=== PATIENT | female | born 2000 | race Caucasian/White ===

== ENCOUNTER 2023-05-03 06:09 | Emergency (ER) | payer OTHER, BC, SELFPAY ==
[2023-05-03] VITALS (9 sets, daily range): BP systolic 117–153; BP diastolic 67–109; PULSE 74–91; RESP 14–28; TEMP 36.7; O2SAT 99–100
--- NOTE | ~2023-05-03 | XR_ITS ---
EXAMINATION: XR chest 2V DATE: 05/03/2023 06:30 INDICATION: Left chest tightness. TECHNIQUE: Frontal and lateral views of the chest were obtained. COMPARISON: None. FINDINGS: There is no pneumonia, pleural effusion, or pneumothorax. The heart size is normal. There i s mild chronic anterior wedging of multiple vertebral bodies. IMPRESSION: 1. No acute cardiopulmonary disease. Reviewed, dictated and finalized at location A.
--- NOTE | 2023-05-03 06:10 | ECG_ITS ---
Measurements Intervals [place] Rate: 88 P: -5 NE: 137 QRS: 3 QRSD: 101 T: -32 QT: 363 QTc: 441 Interpretive Statements SINUS RHYTHM VOLTAGE CRITERIA FOR LVH [MEETS CRITERIA IN ONE OF: R(aVL), S(V1), R(V5), R(V5/V6)+S(V1)] MODERATE T-WAVE ABNORMALITY, CONSIDER LATERAL ISCHEMIA [-0.1+ mV T WAVE IN I/aVL/V5/V6] MODERATE T-WAVE ABNORMALITY, CONSIDER INFERIOR ISCHEMIA [-0.1+ mV T WAVE IN II/aVF] NO PREVIOUS ECG AVAILABLE FOR COMPARISON Electronically Signed On 05-03-2023 11:49:54 CDT by Delaney Price M.D.
--- NOTE | 2023-05-03 06:40 | ED.CHESTPAIN ---
HPI - Chest Pain General Chief Complaint: Chest Pain <Juan Francisco Pierre MD - Last Filed: 05/03/23 06:52> Stated Complaint: chest tightness/elevated bp <Juan Francisco Pierre MD - Last Filed: 05/03/23 06:52> Time Seen by Provider: 05/03/23 06:40 <Juan Francisco Pierre MD - Last Filed: 05/03/23 06:52> History of Present Illness HPI narrative: This is a 22-year-old female, past history of SVT on metoprolol, who presents the emergency department complaining of mild chest tightness for the past day. The patient states yesterday, she felt some nausea and headache. She took her blood pressure at the time and found that it was elevated. She presented to an outside ED but was not seen. She states her chest tightness began at approximately 10 AM yesterday and has persisted since then. She has no other complaints at this time. <Juan Francisco Pierre MD - Last Filed: 05/03/23 06:52> Related Data Allergies/Adverse Reactions: Allergies Allergy/AdvReac Type Severity Reaction Status Date / Time No Known Allergies Allergy Verified 05/03/23 06:42 <Juan Francisco Pierre MD - Last Filed: 05/03/23 06:52> Review of Systems Review of Systems: CONSTITUTIONAL: Denies fever, chills, or sweats. CARDIOVASCULAR: Chest tightness denies palpitations, or edema. RESPIRATORY: Denies cough or dyspnea. GASTROINTESTINAL: Denies abdominal pain, nausea, vomiting, or diarrhea. GENITOURINARY: Denies dysuria or hematuria. SKIN: Denies rash or itching. MUSCULOSKELETAL: Denies back pain, joint pain, or myalgia. NEUROLOGIC: Headache now resolved denies numbness, dizziness, or weakness. PSYCHIATRIC: Denies anxiety or depression. <Juan Francisco Pierre MD - Last Filed: 05/03/23 06:52> PMFSH Past Medical History Medical History: Medical History SVT (supraventricular tachycardia) <Juan Francisco Pierre MD - Last Filed: 05/03/23 06:52> Surgical History Surgical History: Surgical History History of arthroplasty of right ankle <Juan Francisco Pierre MD - Last Filed: 05/03/23 06:52> Social History Social History: Social History (Updated 05/03/23 @ 06:43 by Juan Francisco Pierre MD) Smoking status: Never smoker Alcohol intake: current Substance use: never <Juan Francisco Pierre MD - Last Filed: 05/03/23 06:52> Exam Narrative: GENERAL: Well-developed, well-nourished, and in no acute distress. HEAD: Normocephalic, atraumatic. EYES: PERRLA and EOMI. CHEST: Clear to auscultation. No respiratory distress. No wheezes rales or rhonchi HEART: Regular rate and rhythm. No murmur heard. Normal peripheral pulses. ABDOMEN: Soft, nontender, nondistended, normal active bowel sounds. EXTREMITIES: Normal range of motion. No edema. SKIN: Warm, dry, no rash. NEURO: Alert and oriented x3. Moving all 4 limbs purposefully. PSYCH: Normal mood and affect. <Juan Francisco Pierre MD - Last Filed: 05/03/23 06:52> Course Course Emergency Course: 07:00 - Patient signed out to oncoming ED physician, Dr. Carvajal pending labs. <Juan Francisco Pierre MD - Last Filed: 05/03/23 06:52> 07:00 - Patient signed out to oncoming ED physician, Dr. Carvajal pending labs. 0943: I assumed care at 0700. Patient resting comfortably and chest pain-free. Troponin negative x2. Patient has a trustee of estate she is able to follow-up with. No evidence of SVT. White count mildly elevated at 10.7 with a normal H&H. Electrolytes without need for replacement normal renal function. Patient felt appropriate for discharge home. Discussed this with patient and her mother. There was some question about patient's blood pressure, her blood pressure has been variable throughout the ER stay and is recommended she continue follow-up with PCP and cardiology for evaluation. <Chi Carvajal MD - Last Filed: 05/03/23 09:48> Vital Signs Vital signs:
[2023-05-03 07:10] LABS: Basophils Percent Auto 0.1 % (0.2-1.2); Eosinophils Absolute Auto 0.1 K/mm3 (0-0.3); Eosinophils Percent Auto 1.3 % (0-4.4); Hemoglobin 12.4 g/dL (12.0-15.0); Immature Granulocyte Absolute 0.04 K/mm3 (0.00-0.031); Immature Granulocyte Percent A 0.4 % (0-0.5); Lymphocytes Absolute Auto 3.34 K/mm3 (0.9-3.2); Lymphocytes Percent Auto 31.2 % (18.3-44.2); Mean Corpuscular HGB Conc 30.2 g/dl (32-36); Mean Corpuscular Hemoglobin 24.4 pg (26-34); Mean Corpuscular Volume 80.7 fl (80-100); Monocytes Absolute Auto 0.8 K/mm3 (0.1-0.6); Monocytes Percent Auto 7.2 % (2.6-8.5); Neutrophils Absolute Auto 6.4 K/mm3 (1.3-6.7); Neutrophils Percent Auto 59.8 % (45.5-73.1); Platelet Count Result 345 k/mm3 (150-375); Red Blood Count 5.08 M/mm3 (4.2-5.4); Red Cell Distribution Width 15.1 % (11.5-14.5); White Blood Count 10.7 K/mm3 (4.5-10.0)
--- NOTE | 2023-05-03 07:13 | PC.NURSE ---
Assumed care from ANDREI Almaguer at this time. Pt resting comfortably in bed with no questions or needs at this time.
[2023-05-03 07:19] LABS: Alanine Aminotransferase 30 U/L (6-35); Albumin Level 3.9 g/dL (3.5-5.1); Alkaline Phosphatase 83 U/L (38-126); Anion Gap 4 mmol/L (8-16); Aspartate Amino Transferase 24 U/L (14-36); Bilirubin,Total 0.3 mg/dL (0.2-1.3); Blood Urea Nitrogen 14 mg/dL (7-17); Carbon Dioxide 24 mmol/L (22-30); Chloride 108 mmol/L (98-107); Estimated CRCL calculation 128 ml/min; Estimated Glomerular Filt Rate > 60; Glucose 89 mg/dL (65-110); Lipase 47 U/L (23-300); Potassium 3.8 mmol/L (3.4-5.0); Sodium 136 mmol/L (137-145)
[2023-05-03 07:30] LABS: Troponin I < 0.012 ng/mL (0.000-0.034)
[2023-05-03 07:41] LABS: INR 1.1; Prothrombin Time 14.6 Seconds (11.1-14.7)
[2023-05-03 07:42] LABS: Partial Thromboplastin Time 24.4 SECONDS (22.3-36.8)
[2023-05-03 09:32] LABS: Troponin I < 0.012 ng/mL (0.000-0.034)
== END 2023-05-03 10:05 | disposition home or self-care (01) ==
PROVIDERS: Preventive Medicine Aerospace Medicine; Emergency Provider Emergency Medicine; PCP Family Medicine Sports Medicine
DX: R07.89 Other chest pain (principal); Z96.661 Presence of right artificial ankle joint; R94.31 Abnormal electrocardiogram [ECG] [EKG]
CPT/HCPCS: 36415; 71046; 80053; 83690; 84484; 85025; 85610; 85730; 93005; 99284

== ENCOUNTER 2024-08-23 16:22 | Emergency (ER) | payer OTHER, BC, SELFPAY ==
[2024-08-23] VITALS (7 sets, daily range): BP systolic 118–138; BP diastolic 58–91; PULSE 75–82; RESP 18–20; TEMP 36.6–37.2; O2SAT 99–100
--- NOTE | ~2024-08-23 | CT_ITS ---
EXAMINATION: CT abdomen pelvis w con DATE: 08/23/2024 19:21 INDICATION: Abdominal pain. TECHNIQUE: Computed tomography (CT) of the abdomen and pelvis was performed with 100 mL Omnipaque 350 intravenous contrast. Automated exposure control and iterative reconstruction technique were employe d. The dose-length product was 1596.66 mGy-cm. COMPARISON: CT abdomen and pelvis 08/11/2008 FINDINGS: The visualized portions of the lung bases are clear without pneumonia or pleural effusion. The heart size is normal. No pericardial effusion. The liver, gallbladder, spleen, pancreas, adrenal glands, and kidneys are normal. There are no dilated loops of bowel. The appendix is normal. There ar e no pathologically enlarged lymph nodes. There is no free intraperitoneal fluid. There is mild lumba r spondylosis. There is mild chronic anterior wedging of multiple thoracic vertebral bodies. Thoracol umbar levoscoliosis is noted. IMPRESSION: 1. No etiology for the patient's symptoms. Reviewed, dictated and finalized at location A. [employer] ART SALES REPRESENTATIVE
[2024-08-23 16:43] LABS: Add Urine Microscopic? NO; Appearance Urine Clear (Clear); Bilirubin Urine Negative (Negative); Blood Urine Negative (Negative); Color Urine Light Yellow (Yellow); Glucose Urine UA Negative (Negative); Ketones Urine Negative (Negative); Leukocyte Esterase Ur Negative (Negative); Nitrate Urine Negative (Negative); Protein Urine Negative (Negative); Urobilinogen Urine 0.2 mg/dL (0.2-1.0)
[2024-08-23 17:43] LABS: Basophils Absolute Auto 0.03 K/mm3 (0.00-0.10); Basophils Percent Auto 0.2 % (0.0-1.0); Eosinophils Absolute Auto 0.18 K/mm3 (0.02-0.50); Eosinophils Percent Auto 1.3 % (1.0-6.0); Hematocrit 36.6 % (35.0-49.0); Hemoglobin 11.3 g/dL (12.0-15.0); Immature Granulocyte Absolute 0.06 K/mm3 (0.00-0.00); Immature Granulocyte Percent A 0.4 % (0.0-0.0); Lymphocytes Absolute Auto 4.35 K/mm3 (1.10-4.50); Lymphocytes Percent Auto 31.9 % (18.0-42.0); Mean Corpuscular HGB Conc 30.9 g/dL (32-36); Mean Corpuscular Hemoglobin 22.7 pg (27.0-31.0); Mean Corpuscular Volume 73.5 fL (78.0-102.0); Mean Platelet Volume 11.4 fl (9.2-11.8); Monocytes Absolute Auto 0.85 K/mm3 (0.10-0.90); Monocytes Percent Auto 6.2 % (2.0-11.0); Neutrophils Absolute Auto 8.15 K/mm3 (1.70-7.20); Platelet Count Result 365 K/mm3 (150-420); Red Blood Count 4.98 M/mm3 (4.20-5.40); Red Cell Distribution Width 16.7 % (11.6-14.4); White Blood Count 13.6 K/mm3 (4.8-10.8)
[2024-08-23 18:03] LABS: Alanine Aminotransferase 35 U/L (14-59); Albumin Level 3.2 g/dL (3.4-5.0); Alkaline Phosphatase 92 U/L (46-116); Anion Gap 6 mmol/L (4-12); Aspartate Amino Transferase 16 U/L (15-37); Bilirubin,Total 0.2 mg/dL (0.00-1.00); Blood Urea Nitrogen 16 mg/dL (7-18); Calcium 9.2 mg/dL (8.5-10.1); Carbon Dioxide 30 mmol/L (21-32); Chloride 104 mmol/L (98-108); Estimated CRCL calculation 102 ml/min; Estimated Glomerular Filt Rate > 60; Glucose 86 mg/dL (70-99); Lipase 25 U/L (16-77); Osmolality Calculated 290 mOsm/kg (285-295); Potassium 3.7 mmol/L (3.5-5.1); Sodium 140 mmol/L (136-145); Total Protein 7.5 g/dL (6.4-8.2)
[2024-08-23 19:02] LABS: Urine Pregnancy Test Negative
[2024-08-23 19:03] LABS: Pregnancy On Board Control Positive
--- NOTE | 2024-08-23 19:05 | PC.NURSE ---
report to tomas mcgarry
--- NOTE | 2024-08-23 19:25 | PC.NURSE ---
Pt back from CT, awaiting results, no c/o at this time, VSS.
--- NOTE | 2024-08-23 19:42 | PC.NURSE ---
Dr Adler notified that pts CT and labs back.
--- NOTE | 2024-08-23 20:10 | ED.ABDPAIN ---
HPI - Abdominal Pain General Chief Complaint: Urogenital-Female Stated Complaint: lower abdominal pain Source: patient Mode of arrival: ambulatory Limitations: no limitations History of Present Illness HPI narrative: patient is a 23-year-old female with a significant past medical history that presents today for abdominal pain. Patient has generalized abdominal pain that she has had for last 2 days now. She states that she has the pain it is intermittent pain and is mainly generalized but more localized to the right side around the gallbladder and appendix area. She has taken some OTC medications no relief. She is not constipated she has had a bowel movement yesterday that was normal. MD elicited complaint: abdominal pain Onset (ago): day(s) Pain Consistency: intermittent Location: diffuse Severity: mild Pain scale (0-10): 3 Quality: cramping and aching Radiation: none Migration to: no migration Exacerbating factors: nothing Relieving factors: nothing Associated symptoms: nausea Related Data Patient : No Home Medications ?Medication ?Instructions ?Recorded ?Confirmed ?Last Taken ?Type metoprolol succinate 100 mg 150 mg PO DAILY 08/23/24 08/23/24 History tablet,extended release 24 hr Allergies Allergy/AdvReac Type Severity Reaction Status Date / Time No Known Allergies Allergy Verified 05/03/23 06:42 Review of Systems Review of Systems: All systems reviewed & are unremarkable except as noted in HPI and below Constitutional: Constitutional: Reports as per HPI Eyes: Eyes: Reports no additional eye complaints ENT: Reports system reviewed and no additional complaints, except as documented Cardiovascular: Cardiovascular: Reports no additional cardiovascular complaints Respiratory: Respiratory: Reports no additional respiratory complaints Gastrointestinal: Gastrointestinal: Reports no additional gastrointestinal complaints Genitourinary: Genitourinary: Reports no additional female genitourinary complaints Musculoskeletal: Musculoskeletal: Reports no additional musculoskeletal complaints Integumentary/Breasts: Skin/Breast: Reports system reviewed and no additional complaints, except as docu Neurologic: Reports system reviewed and no additional complaints, except as documented Psychiatric: Psychiatric: Reports no additional psychiatric complaints Endocrine: Endocrine: Reports no additional endocrine complaints Hematologic/Lymphatic: Hematologic/Lymphatic: Reports no additional hematologic/lymphatic complaints Allergic/Immunologic: Allergic/Immunologic: Reports no additional allergic/immunologic complaints PMFSH Past Medical History Medical History SVT (supraventricular tachycardia) Surgical History Surgical History History of arthroplasty of right ankle Social History Social History Smoking status: Never smoker Alcohol intake: current Substance use: never Exam Const: General: healthy appearing Nutritional Appearance: well nourished Orientation/consciousness: patient oriented x3 HENMT: Head: normal to inspection Ears: external ears normal Face/Nose/Sinus: Normal external nose present Face and sinus: normal facial exam Eyes: Conjunctivae: conjunctivae normal Pupils: Equal, round and reactive pupils present EOM: EOMs intact bilaterally Neck: Neck: normal visual inspection Chest: Chest palpation & inspection: normal inspection of the chest Resp: Effort & Inspection: normal respiratory effort Auscultation: clear to auscultation bilaterally Cardio: Rate: regular rate Rhythm: regular rhythm GI: GI Palp: Yes Soft to palpation and Yes Tenderness to palpation present (GI) : General: Yes bladder normal to palpation Back/Spine/Pelvis: Back: no CVA tenderness Skin: General skin exam: normal color Rashes: no rashes Wounds: no wounds Neuro: General: patient oriented x3 Cranial nerves: Yes Nystagmus not present Speech: normal speech Extrem: General: normal to inspection Psych: Mental Status: mental status grossly normal Affect: normal affect Attitude: cooperative Course Vital Signs Vital signs: Vital Signs Temperature 98.9 F 08/23/24 16:25 Pulse Rate 80 08/23/24 16:25 Respiratory Rate 20 08/23/24 16:25 Blood Pressure 130/58 L 08/23/24 16:25 Pulse Oximetry 99 08/23/24 16:25 Oxygen Delivery Room Air 08/23/24 16:25 Temperature 98.9 F 08/23/24 16:25 Pulse Rate 82 08/23/24 19:25 Respiratory Rate 18 08/23/24 19:25 Blood Pressure 126/62 08/23/24 19:25 Pulse Oximetry 100 08/23/24 19:25 Oxygen Delivery Room Air 08/23/24 19:25 MDM - Abdominal Pain MDM Narrative Medical decision making narrative: Patient has had the abdominal pain last 3 days out. A 6 generalized abdominal pain she has had to slight nausea no vomiting and no diarrhea and no constipation. Because of the adrenals a downey of the abdominal pain will just do a CT scan of the abdomen pelvis with contrast. Will also do basic blood work as well. CT scan abdomen pelvis was negative for any abnormal findings. Differential Diagnosis Differential diagnosis: Likely abdominal pain, gastroenteritis and other Medical Records Attestation: I reviewed the patient's medical records. Lab Data Attestation: I reviewed the patient's lab results. 08/23/24 17:39 08/23/24 17:39 Labs: Lab Results 08/23/24 08/23/24 Range/Units 16:25 17:39 WBC 13.6 H (4.8-10.8) K/mm3 RBC 4.98 (4.20-5.40) M/mm3 Hgb 11.3 L (12.0-15.0) g/dL Hct 36.6 (35.0-49.0) % MCV 73.5 L (78.0-102.0) fL MCH 22.7 L (27.0-31.0) pg MCHC 30.9 L (32-36) g/dL RDW 16.7 H (11.6-14.4) % Plt Count 365 (150-420) K/mm3 MPV 11.4 (9.2-11.8) fl Immature Gran % (Auto) 0.4 H (0.0-0.0) % Neut % (Auto) 60.0 (50.0-70.0) % Lymph % (Auto) 31.9 (18.0-42.0) % [place] % (Auto) 6.2 (2.0-11.0) % Eos % (Auto) 1.3 (1.0-6.0) % Baso % (Auto) 0.2 (0.0-1.0) % Lymph # (Auto) 4.35 (1.10-4.50) K/mm3 [place] # (Auto) 0.85 (0.10-0.90) K/mm3 Eos # (Auto) 0.18 (0.02-0.50) K/mm3 Baso # (Auto) 0.03 (0.00-0.10) K/mm3 Abs Immat Gran (auto) 0.06 H (0.00-0.00) K/mm3 Absolute Neuts (auto) 8.15 H (1.70-7.20) K/mm3 Absolute Nucleated RBC 0.00 (0.00-0.00) K/mm3 Nucleated RBC % 0.0 (0-0.0) % Sodium 140 (136-145) mmol/L Potassium 3.7 (3.5-5.1) mmol/L Chloride 104 (98-108) mmol/L Carbon Dioxide 30 (21-32) mmol/L Anion Gap 6 (4-12) mmol/L BUN 16 (7-18) mg/dL Creatinine 1.02 (0.55-1.02) mg/dL Estim Creat Clear Calc 102 ml/min Estimated GFR > 60 (59 - ) Glucose 86 (70-99) mg/dL Calculated Osmolality 290 (285-295) mOsm/kg Calcium 9.2 (8.5-10.1) mg/dL Total Bilirubin 0.2 (0.00-1.00) mg/dL AST 16 (15-37) U/L ALT 35 (14-59) U/L Alkaline Phosphatase 92 (46-116) U/L Total Protein 7.5 (6.4-8.2) g/dL Albumin 3.2 L (3.4-5.0) g/dL Lipase 25 (16-77) U/L Urine Color Light yellow (Yellow) Urine Appearance Clear (Clear) Urine pH 6.0 (5.0-8.0) Ur Specific [place] 1.020 (1.010-1.020) Urine Protein Negative (Negative) Urine Glucose (UA) Negative (Negative) Urine Ketones Negative (Negative) Ur Blood (Man) Negative (Negative) Urine Nitrate Negative (Negative) Urine Bilirubin Negative (Negative) Urine Urobilinogen 0.2 (0.2-1.0) mg/dL Ur Leukocyte Esterase Negative (Negative) Urine Test Negative Imaging Data Radiologist's impression: ITS Impressions Abdomen/Pelvis CT 08/23/24 19:22 IMPRESSION: 1. No etiology for the patient's symptoms. Discharge Plan Discharge Clinical Impression: Gastroenteritis Patient Disposition: Home, Self-Care Condition: Stable Instructions: Gastroenteritis (ED) Patient Language: Spanish Prescriptions: No Action metoprolol succinate 100 mg tablet extended release 24 hr 150 mg PO DAILY Follow-up/Referrals: Flori,Albert Martinez MD [Primary Care Provider] - Time of Disposition: 20:24
--- OUTSIDE RECORDS SUMMARY | 2024-08-27 04:44 | XMS_ITS | Encounter Summary ---
Author Organization [facility] Address [address] [place] [address]. 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, [address] [place] [id number] [address] [place], [address] [facility] [address] [place] [address] Prior Authorization (Colonoscopy-[id number]- [id number]) Social History Tobacco Use Types Packs/Day Years Used Date Smoking Tobacco: Never Passive Smoke Exposure: Never Smokeless Tobacco: Never Alcohol Use Standard Drinks/Week Comments No 0 (1 standard drink = 0.6 oz pur e alcohol) AUDIT-C Answer Date Recorded Frequency of Alcohol Consumption Never 05/29/2018 Average Number of Drinks Not on file 018 Frequency of Binge Drinking Not on file 05/12 PHQ-2 Answer Date Recorded Patient Health Questionnaire-2 Score 0 10/05/2023 Comments No Sex and Gender Information Value Date Recorded Sex Assigned at Not on file Legal Sex Female 4:55 PM CDT Gender Identity Not on file Sexual Orientation Not on file Occupation Industry Job Start Date Job End Date Not on file Not on file Not on file Not on file documented as of this encounter Progress Notes * Cony Fournier MA - 10/20/2023 8:56 AM CST Called patients primary INS and was informed that no PA is required for colonoscopy(36041) and EGD (26300) scheduled on 11/15/2023. Also checked [facility] BCBS and [employer] stated no PA was required. 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 [address] [place] [address] EP Bail Attacher CARDIOVASCULAR DISEASE 08/15/18 documented as of this encounter
--- OUTSIDE RECORDS SUMMARY | 2024-08-27 04:44 | XMS_ITS | Clinical Summary ---
Author Organization [facility] Address [address] [place] [address]. [place], [place] [address] [place] [address] Care Team Providers Care Chemicals Distiller Name Role Phone Albert Ruby MD Primary Care Provider [phone] Tremayne Shi MD Unavailable [phone] Allergies Active Allergy Reactions Criticality Noted Date Comments Apple Vomiting 01/05/2010 Medications esomeprazole (NEXIUM) 40 MG capsule Take 1 capsule (40 mg total) by mouth every morning before breakfast. Active NEXPLANON 68 MG SC implant 024 Active hydroCHLOROthia zide (MICROZIDE) 12.5 MG capsuleIndicati ons:Primary hypertension Take 1-2 capsules (12.5-25 mg total) by mouth every morning. 180 capsule 3 024 Active folic acid (FOLVITE) 1 MG tabletIndicatio ns:Low folic acid Take 1 tablet (1 mg total) by mouth daily. 90 tablet 3 024 Active sertraline (ZOLOFT) 50 MG tabletIndicatio ns:Anxiety Take 1 tablet by mouth once daily 90 tablet 024 Active OZEMPIC, 0.25 OR 0.5 MG/DOSE, 2 MG/3ML injection (PEN)Indication s:Obesity, diabetes, and hypertension syndrome (CMS/HCC HHS/HCC),Predia betes,Morbid obesity with BMI of 50.0-59.9, adult (CMS/HCC HHS/HCC) INJECT 0.25MG SUBCUTANEOUSLY EVERY 7 DAYS 3 mL 024 Active metoprolol succinate ER (TOPROL-XL) 100 MG 24 hr tabletIndicatio ns:Palpitations ,Primary hypertension Take 1 tablet by mouth once daily 30 tablet Active vitamin D2, ergocalciferol, (DRISDOL) 1.25 mg capsuleIndicati ons:Vitamin D deficiency TAKE 1 CAPSULE BY MOUTH ONCE EVERY 7 DAYS 12 capsule Active vitamin D2, ergocalciferol, (DRISDOL) 1.25 mg capsuleIndicati ons:Vitamin D deficiency TAKE 1 CAPSULE BY MOUTH ONCE EVERY 7 DAYS 12 capsule 024 2023 Discontinued OZEMPIC, 0.25 OR 0.5 MG/DOSE, 2 MG/3ML injection (PEN)Indication s:Obesity, diabetes, and hypertension syndrome ([facility]),Predia betes,Morbid obesity with BMI of 50.0-59.9, adult ([facility]) INJECT 0.25MG SUBCUTANEOUSLY EVERY 7 DAYS 3 mL 024 2023 Discontinued metoprolol succinate ER (TOPROL-XL) 100 MG 24 hr tabletIndicatio ns:Palpitations ,Primary hypertension Take 1 tablet by mouth once daily 30 tablet 024 2023 Discontinued Active Problems Problem Noted Date Diagnosed Date RUQ pain 10/06/2023 Diarrhea, unspecified type 10/06/2023 Chronic GERD 10/06/2023 Gastroesophageal reflux disease without esophagi tis 05/20/2020 Gall bladder disease 02/21/2020 Syncope 05/29/2018 Palpitations 05/29/2018 Tachycardia 05/29/2018 Migraine 04/11/2018 Obesity 03/02/2018 PMS (premenstrual syndrome) 11/24/2017 Anxiety 08/02/2017 Insomnia 01/23/2017 Allergic rhinitis 01/06/2011 Restless legs syndrome (RLS) 11/04/2010 Achrochordon 01/05/2010 Resolved Problems Problem Noted Date Diagnosed Date Resolved Date Annual physical exam 11/13/2020 021 Immunizations Name Administration Dates Next Due Dtap 03/26/2001, 0,01/18/2000,11/10 Dtap (Acel-Immune) 04/18/2005 Dtap (Generic) 04/18/2005,,03/17/2000,05/2000,1999 Fluzone Intradermal Quad (IIV4) 04/10/2023 HPV 05/01/2013,08/22/2011 HPV4 (Gardasil) 05/01/2013,08/22/2011 Hepatitis A Vaccine - 2 Dose 08/22/2011,10/29/19 09 Hepatitis B 03/26/2001,01/13/2000 Hepatitis B (Generic: Adult) 03/26/2001,07/03/20 00,01/13/2000 Hepatitis B Pediatric 12/22/2000, 000,04/17/2000,03/2000 Hib (Generic) 03/26/2001, 1,03/17/2000,05/2000,1999 Influenza (Generic) 07/25/2011,06/16/2010 Influenza Adult (Generic) 05/12/2020,09/2018(Deferred: Patient/family declined) MENINGOCOCCAL A C Y&W-135 oligosaccharide (MENVEO) 08/22/2011 MMR 04/18/2005,12/22/2000 MMR (Generic) 04/15/2005,12/22/2000 Menactra 04/19/2017 Meningcoccal Group B (Bexser o)(aka Meningitis) 08/02/2017,04/19/2017 Meningococcal (Generic) 08/22/2011 Meningococcal B 08/02/2017,04/19/2017 Meningococcal Vac A,C,Y,W-135 Sc 04/19/2017 PFIZER COVID-19 (ORIGINAL FO RMULATION, PURPLE CAP) mRNA, LNP-S, PF, 30 MCG/0.3 ML DOSE 05/13/2021,02/23/2021 Pneumococcal (Prevnar 7) 03/26/2001,07/03/2000,0 01/18/2000 Polio Ipv (Generic) 04/18/2005, 1,01/18/2000,11/10 Polio Opv (Generic) 04/18/2005 Tdap (Generic) 05/01/2013 Varicella Vaccine 12/22/2000 Family History Medical History Relation Comments Depression Father Mental Health Father Heart Disease Maternal Grandfather CHF Maternal Grandmother Heart Disease Maternal Grandmother Open Heart Maternal Grandmother Arthritis Mother Asthma Mother Hypertension Mother CHF Paternal Grandmother Relation Status Comments Father Alive Maternal Grandfather Maternal Grandmother Mother Alive Paternal Grandmother Social History Tobacco Use Types Packs/Day Years Used Date Smoking Tobacco: Never Passive Smoke Exposure: Never Smokeless Tobacco: Never Tobacco Cessation:Counseling Given: No Alcohol Use Standard Drinks/Week Comments No 0 (1 standard drink = 0.6 oz pur e alcohol) AUDIT-C Answer Date Recorded Frequency of Alcohol Consumption Never 05/29/2018 Average Number of Drinks Not on file 018 Frequency of Binge Drinking Not on file 05/12 PHQ-2 Answer Date Recorded Patient Health Questionnaire-2 Score 0 05/01/2024 Comments No Sex and Gender Information Value Date Recorded Sex Assigned at Not on file Legal Sex Female 4:55 PM CDT Gender Identity Not on file Sexual Orientation Not on file Occupation Industry Job Start Date Job End Date Not on file Not on file Not on file Not on file Last Filed Vital Signs Vital Sign Reading Time Taken Comments Blood Pressure 148/85 05/01/2024 9:23 AM CDT Pulse 80 05/01/2024 9:23 AM CDT Temperature 36.7 ??C (98.1 ??F) 05/01/2024 9:23 AM CD T Respiratory Rate 16 05/01/2024 9:23 AM CDT Oxygen Saturation 98% 05/01/2024 9:23 AM CDT Inhaled Oxygen Concentration - - Weight 137 kg (302 lb) 05/01/2024 9:23 AM CDT Height 162.6 cm (5' 4 ) 05/01/2024 9:23 AM CDT Body Mass Index 51.84 05/01/2024 9:23 AM CDT Plan of Treatment Health Maintenance Due Date Last Done Comments Cervical Cancer Screening Pap Smear (Age 21 to 29) Every 3 Years 1999 Cervical Cancer Screening 1999 Kidney Health Evaluation 1999 Pneumococcal Vaccine: Pediatrics (0 to 5 Years) and At-Risk Patients (6 to 64 Years) (1 of 2 - PCV) 2005 03/26/2001, 07/03/2000, 01/18/2000 Diabetes: Retinopathy Eye Exam 2017 DTaP, Tdap and Td Vaccines (7 - Td or Tdap) 05/01/2023 05/01/2013, 04/18/2005, 04/18/2005, Additional history exists Influenza Adult (#1) 2024 04/10/2023, 05/12/2020, 07/25/2011, Additional history exists Annual Physical 07/07/2024 07/07/2023, 06/12, 11/13/2020 Hemoglobin A1C 10/26/2024 04/25/2024, 06/11, 11/13/2020, Additional history exists Lipid Panel 04/25/2025 04/25/2024, 06/11, 11/13/2020, Additional history exists COVID-19 Vaccine ( season) 2112 05/13/2021, 02/23/2021 Postponed from 05/12/2024 (Going to Outside Clinic) Hepatitis B Vaccines Completed 03/26/2001, 03/26/2001, 12/22/2000, Additional history exists HPV Vaccines Completed 05/01/2013, 04/12, 08/22/2011, Additional history exists Meningococcal Vaccine Completed 08/02/2017 , 04/19/2017, 04/19/2017, Additional history exists Hepatitis C Completed 04/25/2024 RSV Immunizations Under 20 Months Aged Out No longer eligible based on patient's age to complete this topic Procedures Procedure Name Priority Date/Time Associated Diagnosis Comments HEPATITIS C ANTIBODY W/RFX TO HCV RNA Routine 04/25/2024 1:09 PM CDT LIPID PANEL Routine 04/25/2024 1:09 PM CDT HEMOGLOBIN, GLYCOSYLATED Routine 04/25/2024 1:09 PM CDT from Last 3 Months or Most Recently Relevant to Health Maintenance Results * HEPATITIS C ANTIBODY W/RFX TO HCV RNA (04/25/2024 1:09 PM CDT) HEPATITIS C AB NON-REACT CARRI NON-REACT CARRI [facility] Comment: HCV antibody was non-reactive. There is no laboratory evidence of HCV infection. In most cases, no further action is required. However, if recent HCV exposure is suspected, a test for HCV RNA (test code 51996) is suggested. For additional information please refer to http://education.Master The Gap/faq/ZPO62g5 (This link is being provided for informational/ educational purposes only.) 04/25/2024 1:09 PM CDT 04/25/2024 1:14 PM CDT Narrative [facility] - 04/26/2024 11:32 AM CDT FASTING:YES FASTING: YES Resulting Agency Comment Performing Organization Information: ?Site ID: [place] ?Name: [facility] ?Address: [address] [place] [address] ?Director: Yuli Li MD Albert Ruby MD LABORATORY Final Result [facility] [address] [place] [address], * (ABNORMAL) HEMOGLOBIN, GLYCOSYLATED (04/25/2024 1:09 PM CDT) HGB A1C 5.7(H) <5.7 % of total Hgb [facility] [place] Comment: For someone without known diabetes, a hemoglobin A1c value between 5.7% and 6.4% is consistent with prediabetes and should be confirmed with a follow-up test. For someone with known diabetes, a value <7% indicates that their diabetes is well controlled. A1c targets should be individualized based on duration of diabetes, age, comorbid conditions, and other considerations. This assay result is consistent with an increased risk of diabetes. Currently, no consensus exists regarding use of hemoglobin A1c for diagnosis of diabetes for children. ? This test was performed on the Niurka kulwinder c503 platform. Effective 11/27/23, a change in test platforms from the Telles Family Program Specialist to the Niurka kulwinder c503 may have shifted HbA1c results compared to historical results. Based on laboratory validation testing conducted at [facility], the Niurka platform relative to the Telles platform had an average increase in HbA1c value of < or = 0.3%. This difference is within accepted variability established by the National Glycohemoglobin Standardization Program. Note that not all individuals will have had a shift in their results and direct comparisons between historical and current results for testing conducted on different platforms is not recommended. 04/25/2024 1:09 PM CDT 04/25/2024 1:14 PM CDT Narrative [facility] - 04/26/2024 11:32 AM CDT FASTING:YES FASTING: YES Resulting Agency Comment Performing Organization Information: ?Site ID: ?Name: [facility] ?Address: [address] [place] [address] ?Director: Yuli Li Albert Ruby MD LABORATORY Final Result [facility] [address] [address], * (ABNORMAL) LIPID PANEL (04/25/2024 1:09 PM CDT) CHOLESTEROL 104 <200 mg/dL [facility] HDL 43(L) > OR = 50 mg/dL [facility] TRIGLYCERIDES 67 <150 mg/dL [facility] LDL (CALCULATED) 47 mg/dL (calc) [facility] Comment: Reference range: <100 Desirable range <100 mg/dL for primary prevention; ?? <70 mg/dL for patients with CHD or diabetic patients with > or = 2 CHD risk factors. LDL-C is now calculated using the Kevin-Justice calculation, which is a validated novel method providing better accuracy than the Friedewald equation in the estimation of LDL-C. Kevin SS et al. AMAN. 2013;310(19): 6123-1759 (http://education.Cotap/faq/JBY321) CHOL/HDL RATIO 2.4 <5.0 (calc) [facility] NON HDL CHOLESTEROL 61 <130 mg/dL (calc) [facility] Comment: For patients with diabetes plus 1 major ASCVD risk factor, treating to a non-HDL-C goal of <100 mg/dL (LDL-C of <70 mg/dL) is considered a therapeutic option. 04/25/2024 1:09 PM CDT 04/25/2024 1:14 PM CDT Narrative [facility] - 04/26/2024 11:32 AM CDT FASTING:YES FASTING: YES Resulting Agency Comment Performing Organization Information: ?Site ID: [place] ?Name: [facility] ?Address: [address] [place] [address] ?Director: Yuli Li MD us Albert Ruby MD LABORATORY Final Result [facility] [address] [address] [address], from Last 3 Months or Most Recently Relevant to Health Maintenance [facility] Care Teams Chemicals Distiller Relationship Specialty Start Date End Date Albert Ruby MD [address] [place] [address] [address] [place] [address] PCP - General FAMILY PRACTICE 05/16/18 Tremayne Shi MD [facility]. [address] [place] [address] EP Agricultural And Forestry Supervisor CARDIOVASCULAR DISEASE 08/15/18
--- OUTSIDE RECORDS SUMMARY | 2024-08-27 04:44 | XMS_ITS | Encounter Summary ---
Author Organization [facility] Address [address] [place] [address]. [place] [address] Care Team Providers Care Registered Nurse Practitioner Name Role Phone Albert Ruby MD Primary Care Provider [phone] Tremayne Shi MD Unavailable [phone] Encounter Details Date Type Department Care Team (Latest Contact Info) Description 12/20/2023 Scan HEALTH INFO SRVCS Scanned, Doc Med Group Social History Tobacco Use Types Packs/Day Years [...] on file documented as of this encounter Plan of Treatment Not on file documented as of this encounter Visit Diagnoses Not on filedocumented in this encounter Additional Health Concerns Assessment Noted Time PHQ-9 Depression Total Score: 4 07/07/20 23 8:53 AM CDT documented as of this encounter Care Teams Registered Nurse Practitioner Relationship Specialty Start Date End Date Albert Ruby MD [address] [place] [address] PCP - General FAMILY PRACTICE 05/16/18 Tremayne Shi MD [address] [facility] [address] [place] [address] EP Cold Patcher CARDIOVASCULAR DISEASE 08/15/18 documented as of this encounter
--- OUTSIDE RECORDS SUMMARY | 2024-08-27 04:44 | XMS_ITS | Encounter Summary ---
Author Organization [facility] Address [address] [place] [address]. [place], [place] [address] [place] [address] Care Team Providers Care Scallop Dredger Name Role Phone Albert Ruby MD Primary Care Provider [phone] Tremayne Shi MD Unavailable [phone] Encounter Details Date Type Department Care Team (Latest Contact Info) Description 10/16/2023 Travel Social History Tobacco Use Types Packs/Day Years [...] documented as of this encounter Care Teams Scallop Dredger Relationship Specialty Start Date End Date Albert Ruby MD [address] [facility] [address] [place] [address] PCP - General FAMILY PRACTICE 05/16/18 Tremayne Shi MD [address] [place] [address] EP Optical Manufacturing Technician CARDIOVASCULAR DISEASE 08/15/18 documented as of this encounter
--- OUTSIDE RECORDS SUMMARY | 2024-08-27 04:44 | XMS_ITS | Encounter Summary ---
Author Organization [facility] Address [address] [place] [address]. [place] [address] [place] [address] Care Team Providers Care Helper Teacher Name Role Phone Albert Ruby MD Primary Care Provider [phone] Tremayne Shi MD Unavailable [phone] Reason for Visit * Reason Onset Date Comments Medication 06/22/2023 Encounter Details Date Type Department Care Team (Late st Contact Info) Description 06/22/2023 Telephone [facility] Medical [facility] Family and Sports Medicine - [place] [address] [place] [address] Albert Ruby MD [address] [facility] [address] [place] [address] Medication Social History Tobacco Use Types Packs/Day Years Used Date Smoking Tobacco: Never Smokeless Tobacco: Never Alcohol Use Standard Drinks/Week Comments No 0 (1 standard drink = 0.6 oz pur e alcohol) AUDIT-C Answer Date Recorded Frequency of Alcohol Consumption Never 05/29/2018 Average Number of Drinks Not on file 018 Frequency of Binge Drinking Not on file 05/12 PHQ-2 Answer Date Recorded PHQ-2 Score - If the patient scores above 3, please move on to questions 3-9 4 07/01/2022 Comments No Sex and Gender Information Value Date Recorded Sex Assigned at Not on file Legal Sex Female 4:55 PM CDT Gender Identity Not on file Sexual Orientation Not on file Occupation Industry Job Start Date Job End Date Not on file Not on file Not on file Not on file documented as of this encounter Progress Notes * Nubia Scanlon MA - 06/22/2023 2:45 PM CDT [facility] [place] [facility] [place] [facility]. * Tory Asif - 06/22/2023 12:48 PM CDT Pt would like to script for vitamin D2, ergocalciferol, (DRISDOL) 1.25 mg capsule To be sent to [facility] of [facility]. documented in this encounter Plan of Treatment Not on file documented as of this encounter Visit Diagnoses Diagnosis Vitamin D deficiency Unspecified vitamin D deficiency documented in this encounter Additional Health Concerns Assessment Noted Time PHQ-9 Depression Total Score: 11 022 11:44 AM CDT documented as of this encounter Care Teams Helper Teacher Relationship Specialty Start Date End Date Albert Ruby MD [address] [place], [place] [address] [address] [place] [address] PCP - General FAMILY PRACTICE 05/16/18 Tremayne Shi MD [facility] [place] [address] EP Molecular Biology Professor CARDIOVASCULAR DISEASE 08/15/18 documented as of this encounter
--- OUTSIDE RECORDS SUMMARY | 2024-08-27 04:44 | XMS_ITS | Encounter Summary ---
Author Organization [facility] Address [address] [place] [address]. [place], [place] [address] [place] [address] Care Team Providers Care Straddle Truck Driver Name Role Phone Albert Ruby MD Primary Care Provider [phone] Tremayne Shi MD Unavailable [phone] Encounter Details Date Type Department Care Team (Latest Contact Info) Description 11/15/2023 Travel Social History Tobacco Use Types Packs/Day [...] documented as of this encounter Care Teams Straddle Truck Driver Relationship Specialty Start Date End Date Albert Ruby MD [address] [facility] [address] [place] [address] PCP - General FAMILY PRACTICE 05/16/18 Tremayne Shi MD [address] [place] [address] EP Fingerprint Classifier CARDIOVASCULAR DISEASE 08/15/18 documented as of this encounter
--- OUTSIDE RECORDS SUMMARY | 2024-08-27 04:44 | XMS_ITS | Encounter Summary ---
Author Organization [facility] Address [address] [place] [address]. [place] [address] [place] [address] Care Team Providers Care Global Manager Name Role Phone Albert Ruby MD Primary Care Provider [phone] Tremayne Shi MD Unavailable [phone] Reason for Visit * Reason Onset Date Comments Advice 04/29/2024 Encounter Details Date Type Department Care Team (Late st Contact Info) Description 04/29/2024 Telephone [facility] Medical Group Family and Sports Medicine - [place] [address] [place] [address] Albert Ruby MD [address] [facility] [address] [place] [address] Advice Social History Tobacco Use Types Packs/Day Years [...] as of this encounter Progress Notes * Edith Jackson CMA - 04/29/2024 2:21 PM CDT Called and scheduled appt 05/01/24 * MARCELLUS Esquivel - 04/29/2024 1:28 PM CDT Name of Caller: Laura Call Back Number: [phone] Symptoms/Complaints: bp 160/90's Duration/Onset: since Monday OTC Medications/Remedies Tried: Appointment Offered? Yes Requesting Medication? No Requesting Call Back? Yes Additional details: documented in this encounter Plan of Treatment Not on file documented as of this encounter Visit Diagnoses Not on filedocumented in this encounter Additional Health Concerns Assessment Noted Time PHQ-9 Depression Total Score: 4 07/07/20 23 8:53 AM CDT documented as of this encounter Care Teams Global Manager Relationship Specialty Start Date End Date Albert Ruby MD [address] [place] [address] [address] [place] [address] PCP - General FAMILY PRACTICE 05/16/18 Tremayne Shi MD [facility]. [address] [place] [address] EP Livestock Trucker CARDIOVASCULAR DISEASE 08/15/18 documented as of this encounter
--- OUTSIDE RECORDS SUMMARY | 2024-08-27 04:44 | XMS_ITS | Encounter Summary ---
Author Organization [facility] Address [address] [place] [address]. [place], [place] [id number] [place] [id number] Care Team Providers Care Tank Truck Driver Name Role Phone Vania Brown MD Primary Care Provider [phone] Tremayne Shi MD Unavailable [phone] Reason for Visit * Auth/Cert (Routine) Specialty Diagnoses / Procedures Referred By Ines borja Referred To Contact Diagnoses RUQ pain Diarrhea, unspecified type Chronic GERD chronic GERD,episodic RUQ pain naesea/diarrhea Procedures COLONOSCOPY,DIAGNOSTIC UPPER GI ENDOSCOPY,DIAGNOSIS COLONOSCOPY EGD Eduardo Shipman, DO #3 [facility] [address] [place] [address] Phone: tel: fax: Referral ID Status Reason Start Date Expiration Date Visits Re quested Visits Authorized [id number] 1 1 Encounter Details Date Type Department Care Team (Latest Contact Info) Description 11/15/2023 8:38 AM [facility] - 11/15/2023 12:24 PM [facility] Hospital Encounter [facility] [place], [place] [id number] Eduardo Shipman, DO #3 [facility] [address] [place] [phone] Discharge Disposition: Home or Self Care (Routine Discharge) Social History Tobacco Use Types Packs/Day Years [...] on file documented as of this encounter Last Filed Vital Signs Vital Sign Reading Time Taken Comments Blood Pressure 119/84 11/15/2023 12:00 PM CLOAK ROOM ATTENDANT Pulse 73 11/15/2023 12:00 PM CLOAK ROOM ATTENDANT Temperature 36.9 ??C (98.4 ??F) 11/15/2023 11:[address] Respiratory Rate 16 11/15/2023 12:00 PM CLOAK ROOM ATTENDANT Oxygen Saturation 99% 11/15/2023 12:00 PM CLOAK ROOM ATTENDANT Inhaled Oxygen Concentration - - Weight 135.2 kg (298 lb) 11/02/2023 4:47 PM CLOAK ROOM ATTENDANT Height 162.6 cm (5' 4 ) 11/02/2023 4:47 PM CLOAK ROOM ATTENDANT Body Mass Index 51.15 11/02/2023 4:47 PM CLOAK ROOM ATTENDANT documented in this encounter Discharge Instructions * Discharge Instructions* Elle Brown LPN - 11/15/2023 11:59 AM CLOAK ROOM ATTENDANT Recommendations: Call 2 weeks for biopsy report. Follow-up with primary physician. Patient has significant sleep apnea observed during procedure. Antireflux regimen reinforced. Continue esomeprazole. OTC famotidine 20/40 mg at bedtime if needed. May benefit from gastric emptying study. Avoid NSAIDs. Benefiber daily. [email or web address] or Florastor per label instructions. Low carbohydrate diet, exercise, and weight loss encouraged due to hepatic steatosis. Transaminases should be checked every 6 months. Follow-up with ALFA Piper in office. K ROOM ATTENDANT * Attachments The following attachments cannot be sent through Care Everywhere. * General Anesthesia Discharge Instructions (Tongan) * Colonoscopy Discharge Instructions (Tongan) * Upper GI Endoscopy Discharge Instructions (Tongan) documented in this encounter Medications at Time of Discharge esomeprazole (NEXIUM) 40 MG capsule Take 1 capsule (40 mg total) by mouth every morning before breakfast. ALPRAZolam (XANAX) 0.25 MG tabletIndications:A nxiety Take 1 tablet (0.25 mg total) by mouth nightly as needed for Sleep. 30 tablet 10/23/2023 4 cholestyramine (QUESTRAN) 4 G packetIndications:R UQ pain,Diarrhea, unspecified type Take 1 packet (4 g total) by mouth 2 (two) times daily with meals. 60 each 10/05/2023 4 cloNIDine (CATAPRES) 0.2 MG tabletIndications:P rimary insomnia Take 1 tablet by mouth in the evening 30 tablet 11/09/2023 4 metoprolol succinate ER (TOPROL-XL) 100 MG 24 hr tabletIndications:P alpitations,Primary hypertension Take 1 tablet by mouth once daily 90 tablet 10/30/2023 4 Norgestimate-Ethiny l Estradiol (TRI-LO-NEENA) 0.18/0.215/0.25 MG-25 MCG tabletIndications:E ncounter for other contraceptive management Take 1 tablet by mouth once daily 28 tablet 2 10/09/2023 4 sertraline (ZOLOFT) 50 MG tabletIndications:A nxiety Take 1 tablet (50 mg total) by mouth daily. 90 tablet 3 07/07/2023 4 vitamin D2, ergocalciferol, (DRISDOL) 1.25 mg capsuleIndications: Vitamin D deficiency Take 1 capsule (50,000 Units total) by mouth every 7 days. 12 capsule 3 06/22/2023 4 documented as of this encounter H&P Notes * Eduardo Shipman DO - 11/15/2023 7:24 AM CST Pranay Gonzalez is a 23-year-old female who presents today for evaluation of GERD symptoms. Referral placed by PCP Dr. Brown. Reports chronic GERD managed on antacids since she was an infant. Is currently prescribed Esomeprazole 40 mg daily with infrequent breakthrough heartburn reported. Her main concern is her chronic RUQpain and associated nausea and diarrhea. Pain is described as a dull ache, has had migrating pain to her LUQ and back over the past few months. Typically has an episode once a week, symptoms last several days. Symptoms are triggered by eating and seem to be associated with fatty foods most frequently. Diarrhea is non bloody. Had an episode of rectal bleeding when she was 9 which resulted in a hospitalization at which time an EGD and colonoscopy were completed. States her mother was told the bleeding could have been from a torn colon polyp although its likely there was some misunderstanding or miscommunication since there was no colon polyp removed and was not recommended to repeat endoscopies. States she was given IV protonix for a few days then sent home. Has not had a reoccurrence of rectal bleeding. Has had a biliary work-up in 2010 and again in 2019, both of which were normal. CT scan at that time showed mesenteric adenopathy for which patient was tx with antibiotics. BM in between episodes are regular. Denies any dysphagia. Appetite appropriate, denies early satiety. No unexplained weight loss No hx of hepatitis infection NSAID/Anticoagulant use: None Follows cardiology for h/o SVT controlled with metoprolol Past Medical History Past Medical History: Diagnosis Date Anxiety Asthma Depression GERD (gastroesophageal reflux disease) Heart murmur Hypertension Migraine Palpitations Syncope Tachycardia Past Surgical History Past Surgical History: Procedure Laterality Date ANKLE FRACTURE SURGERY COLONOSCOPY FRACTURE SURGERY 06/2013 R ankle Family History Family History Problem Relation Name Age of Onset Arthritis Mother Izabela Asthma Mother Izabela Hypertension Mother Izabela Depression Father Hubert Mental Health Father Hubert CHF Maternal Grandmother Maia Open Heart Maternal Grandmother Maia Heart Disease Maternal Grandmother Maia CHF Paternal Grandmother Heart Disease Maternal Grandfather Sergio Social History Tobacco Use Smoking status: Never Passive exposure: Never Smokeless tobacco: Never Vaping Use Vaping Use: Never used Substance Use Topics Alcohol use: No Drug use: No Medications Taking Outpatient Medications Marked as Taking for the 10/05/23 encounter (Office Visit) with Charla Araujo NP Medication Sig Dispense Refill ALPRAZolam (XANAX) 0.25 MG tablet Take 1 tablet (0.25 mg total) by mouth nightly as needed for Sleep. 30 tablet 0 cholestyramine (QUESTRAN) 4 G packet Take 1 packet (4 g total) by mouth 2 (two) times daily with meals. 60 each 0 cloNIDine (CATAPRES) 0.2 MG tablet Take 1 tablet (0.2 mg total) by mouth every evening. 30 tablet 3 esomeprazole (NEXIUM) 40 MG capsule Take 1 capsule (40 mg total) by mouth every morning before breakfast. metoprolol succinate ER (TOPROL-XL) 100 MG 24 hr tablet Take 1 tablet (100 mg total) by mouth daily. 90 tablet 1 Na sulfate-K sulfate-Mg sulfate (SUPREP BOWEL PREP KIT) 17.5-3.13-1.6 GM/177ML Solution Take 177 mLs by mouth every 12 (twelve) hours. Per GI instructions 354 mL 0 Norgestimate-Ethinyl Estradiol (ORTHO TRI-CYCLEN LO) 0.18/0.215/0.25 MG-25 MCG tablet Take 1 tabletby mouth daily. 28 tablet 5 sertraline (ZOLOFT) 50 MG tablet Take 1 tablet (50 mg total) by mouth daily. 90 tablet 3 vitamin D2, ergocalciferol, (DRISDOL) 1.25 mg capsule Take 1 capsule (50,000 Units total) by mouth every 7 days. 12 capsule 3 Review of patient's allergies indicates: No Known Allergies REVIEW OF SYSTEMS: Review of Systems Constitutional: Negative for fatigue and fever. Respiratory: Negative for shortness of breath. Cardiovascular: Negative for leg swelling. Gastrointestinal: Per HPI Musculoskeletal: Negative for joint swelling. Skin: Negative for rash. Neurological: Negative for dizziness and headaches. Psychiatric/Behavioral: The patient is not nervous/anxious. PHYSICAL EXAM: Filed Vitals: 10/05/23 1304 BP: 121/66 Pulse: 88 Resp: 18 Temp: 97.3 ??F (36.3 ??C) TempSrc: Temporal SpO2: 96% Weight: 135.6 kg (299 lb) Height: 1.651 m (5' 5 ) Wt Readings from Last 1 Encounters: 10/05/23 135.6 kg (299 lb) Physical Exam Vitals reviewed. Constitutional: Appearance: Normal appearance. Cardiovascular: Rate and Rhythm: Normal rate and regular rhythm. Pulmonary: Breath sounds: Normal breath sounds. No wheezing. Abdominal: General: Bowel sounds are normal. There is no distension. Palpations: Abdomen is soft. There is no mass. Tenderness: There is no abdominal tenderness. There is no guarding or rebound. Hernia: No hernia is present. Musculoskeletal: Right lower leg: No edema. Left lower leg: No edema. Skin: General: Skin is warm and dry. Findings: No rash. Neurological: Mental Status: She is alert and oriented to person, place, and time. Psychiatric: Mood and Affect: Mood normal. Behavior: Behavior normal. Labs: Lab Results Component Value Date WBC 10.6 06/21/2023 RBC 4.77 06/21/2023 HGB 11.9 06/21/2023 HCT 37.4 06/21/2023 RDW 14.6 06/21/2023 PLT 300 06/21/2023 NA 138 06/21/2023 K 4.0 06/21/2023 CL 107 06/21/2023 AGAP 15.4 (H) 11/13/2020 GLU 105 (H) 06/21/2023 BUN 10 06/21/2023 CR 0.82 06/21/2023 GFRNON >90 11/13/2020 GFR >90 11/13/2020 CA 8.8 06/21/2023 ALB 3.6 06/21/2023 ALT 12 06/21/2023 AST 12 06/21/2023 ALKP 82 06/21/2023 Imagin08/03/2020 HIDA SCAN 1. Normal contractile response of the gallbladder to a fat-containing liquid meal (EF 54%) 2. Normal biliary imaging study. 04/10/2020 CT ABD+PEL W CON 1. No bowel obstruction or appendicitis or acute inflammatory change in the large or small bowel. 2. No CT findings of pancreatitis 3. Numerous 5 and 6 mm mesenteric lymph nodes; mesenteric adenitis or mesenteritis. 02/27/2020 US ABD Limited 1. FINDINGS SUSPICIOUS FOR MILD HEPATIC STEATOSIS. NO FOCAL INTRAHEPATIC LESION. 2. NO EVIDENCE OF CHOLELITHIASIS NOR BILIARY DUCT DILATATION. Endoscopies: None Assessment 1. RUQ pain - cholestyramine (QUESTRAN) 4 G packet; Take 1 packet (4 g total) by mouth 2 (two) times daily withmeals. Dispense: 60 each; Refill: 0 - Na sulfate-K sulfate-Mg sulfate (SUPREP BOWEL PREP KIT) 17.5-3.13-1.6 GM/177ML Solution; Take 177mLs by mouth every 12 (twelve) hours. Per GI instructions Dispense: 354 mL; Refill: 0 - CT ABD W CON; Future 2. LUQ pain - Na sulfate-K sulfate-Mg sulfate (SUPREP BOWEL PREP KIT) 17.5-3.13-1.6 GM/177ML Solution; Take 177mLs by mouth every 12 (twelve) hours. Per GI instructions Dispense: 354 mL; Refill: 0 - CT ABD W CON; Future 3. Diarrhea, unspecified type - cholestyramine (QUESTRAN) 4 G packet; Take 1 packet (4 g total) by mouth 2 (two) times daily withmeals. Dispense: 60 each; Refill: 0 - Na sulfate-K sulfate-Mg sulfate (SUPREP BOWEL PREP KIT) 17.5-3.13-1.6 GM/177ML Solution; Take 177mLs by mouth every 12 (twelve) hours. Per GI instructions Dispense: 354 mL; Refill: 0 - CT ABD W CON; Future 4. Chronic GERD - CT ABD W CON; Future Recommendations/Plan: Schedule Dx EGD and Colonoscopy for chronic GERD with episodic RUQ pain, nausea and diarrhea Suprep split prep prescribed CT scan of abdomen and pelvis ordered per migrating abdominal pain, diarrhea, h/o mesentery adenopathy Continue esomeprazole 40 mg daily. Symptoms do seem to be r/t gallbladder or biliary disease despite previous neg work-ups in 2010 and 2019. Its possible patient was not having a flare during HIDA scan since symptoms are episodic not consistent. Will trial cholestyramine 4 G BID for flare. Also recommended low fat diet as well as discussed anti-reflux measures It is recommended to consume 20-35 grams of fiber per day and at least 64 ounces/2 liters of water per day. All questions answered More recommendations to follow endoscopic evaluation Risks/Benefits/Options: Risks, benefits and alternatives of the procedure(s) were discussed which can include but are not limited to: discomfort, missing lesions, allergic or adverse reaction to the sedation, perforation ofthe bowel or upper GI tract which may require hospitalization and surgery, bleeding, infection, aspiration. All questions were answered, patient is in agreement to proceed as planned. K ROOM ATTENDANT documented in this encounter OR Notes * Op Note - Eduardo Shipman DO - 11/15/2023 11:45 AM CST EGD History/Preop: Very pleasant lady with a history of chronic reflux disease on esomeprazole 40 mg daily. She been having chronic right upper quadrant abdominal pain and nausea. Post Op: Gastric biopsy for H. pylori testing. Small sliding hiatal hernia. Procedure: EGD with biopsy. Findings: Examination the esophagus was unremarkable. The Z-line is very distinct approximately 38 cm. A 2 cmsliding hiatal hernia was noted. The scope was advanced to the second portion of the duodenum. The visualized portion of the duodenum was unremarkable. Examination of the stomach in the forward and flex use was completed. The stomach was unremarkable. Gastric biopsy were taken for H. pylori testing. Recommendations: Please refer to colonoscopy report. Anes: MAC Complications: No immediate. EBL: < 5ml. Procedure: The benefits, risks, complications and alternatives were explained in detail to the patient/power of proof technician helper. These were understood, assumed and written consent was obtained. The risk and complications include, but are not limited to, hemorrhage, perforation, infection, blood transfusion, surgery,and missed lesions. Anesthesia risks were explained by the department of anesthesiology which include, but are limited to, allergic reactions, cardiopulmonary arrest, heart attack, stroke, and pneumonia. All questions were addressed with understanding. Colonoscopy History/Preop: Very pleasant lady with right upper quadrant abdominal pain and diarrhea. She has episodes of diarrhea. She is here for colonoscopy. Post Op: Negative terminal ileum. Negative colonoscopy. Random biopsies for microscopic colitis. Procedure Performed: Colonoscopy with biopsy and ileoscopy. Findings: Digital rectal examination was unremarkable. Colonoscopy the distal 5 cm of terminal and was completed. The visualized portion of the terminal limits unremarkable. Examination of the colon was completed. The colon was unremarkable. Random biopsies were taken for microscopic colitis. The rectum was examined in forward and retroflexed views. The rectum was unremarkable. Recommendations: Call 2 weeks for biopsy report. Follow-up with primary physician. Patient has significant sleep apnea observed during procedure. Antireflux regimen reinforced. Continue esomeprazole. OTC famotidine 20/40 mg at bedtime if needed. May benefit from gastric emptying study. Avoid NSAIDs. Benefiber daily. [employer] colon health or Florastor per label instructions. Low carbohydrate diet, exercise, and weight loss encouraged due to hepatic steatosis. Transaminases should be checked every 6 months. Follow-up with ALFA Piper in office. Anes: MAC Complications: No immediate. Quality Indicators: EBL: <5 mL Prep: Good. Procedure: The benefits, risks, complications and alternatives were explained in detail to the patient/power of proof technician helper. These were understood, assumed and written consent was obtained. The risk and complications include, but are not limited to, hemorrhage, perforation, infection, blood transfusion surgery, and missed lesions. Anesthesia risks were explained by the department of anesthesiology. These include, but are not limited to, allergic reactions, cardiopulmonary arrest, heart attack, stoke, and infection. All question were answered and understood. The cecum will be identified by its characteristic anatomy. This includes, but not limited to, the appendiceal opening and the ileocecal valve. Photographic documentation will be obtained. Eduardo Shipman DO K ROOM ATTENDANT K ROOM ATTENDANT documented in this encounter Plan of Treatment Not on file documented as of this encounter Procedures Procedure Name Priority Date/Time Associated Diagnosis Comments COLONOSCOPY Routine 11/15/2023 11:58 AM CLOAK ROOM ATTENDANT EGD Routine 11/15/2023 11:58 AM CLOAK ROOM ATTENDANT UPPER GI ENDOSCOPY,BIOPSY 11/15/2023 11:15 AM CLOAK ROOM ATTENDANT RUQ pain Diarrhea, unspecified type Chronic GERD COLONOSCOPY WITH BIOPSY 11/15/2023 11:15 AM CLOAK ROOM ATTENDANT RUQ pain Diarrhea, unspecified type Chronic GERD PROCEDURE GENERIC 11/15/2023 11: 06 AM CLOAK ROOM ATTENDANT PATHOLOGY Routine 11/15/2023 12:00 AM CLOAK ROOM ATTENDANT documented in this encounter Results * PROCEDURE GENERIC (11/15/2023 11:06 AM CLOAK ROOM ATTENDANT) us Eduardo Shipman DO [facility] Final Result * Pathology (11/15/2023 12:00 AM CLOAK ROOM ATTENDANT) PATHOLOGY [facility] ? Department of Laboratory Medicine ?[address] [facility] ?[place] [address] ? , extension [phone] ? Pathology Report ? Surgical Pathology Report Name: PRANAY GONZALEZ ?Specimen #: [id number] Age: 1 2000 (Age: 23) ? Location: [facility] Sex: F ?Procedure Date: 11/15/2023 Hospital #: [id number] ?Date Received: 11/15/2023 Date Reported: 11/16/2023 Provider: EDUARDO SHIPMAN DO ?VANIA BROWN MD Source: A: Gastric biopsies r/o h pylori B: Colon, random, biopsies r/o microscopic colitis Clinical History: Chronic GERD, diarrhea unspecified type and RUQ pain, nausea/diarrhea Gross Description: Received are two formalin-filled containers both labeled with the patient's name and date of . A. ??Additionally labeled gastric biopsy collection date 11/15/2023 at 1129. The specimen consists of two pink-herrera fragments of tissue mg 0.3 and 0.5 cm in greatest dimension. ??The specimen is submitted in toto in cassette A1. B. ??Additionally labeled random colon biopsies collection date 11/15/2023 at 1137. ??The specimen consists of six fragments of yellow-herrera to pink-herrera tissue admixed with minimal vegetative material, ranging from 0.3 cm up to 0.5 cm in greatest dimension. ??The specimen is submitted in toto in cassette B1. ??A portion of specimen may not survive processing. Gross examination (when applicable), interpretation, and sign out were performed at [facility], [address] [place] [address]. FINAL DIAGNOSIS: A) STOMACH, BIOPSY: ? - BENIGN GASTRIC MUCOSA. ? - NO HELICOBACTER PYLORI BY H&E. B) COLON, RANDOM BIOPSY: ? - BENIGN COLONIC MUCOSA WITH LYMPHOID AGGREGATES. ? - NO EVIDENCE OF ACUTE OR MICROSCOPIC COLITIS. Electronically Signed Out ? ANTONIETTA VELAZQUEZ MD [facility] TISSUE GASTRIC BIOPSY SPECIMEN / Unknown 11/15/2023 11:29 AM CLOAK ROOM ATTENDANT Tissue specimen (specimen) COLON STRUCTURE / Unknown 11/15/2023 11:37 AM CLOAK ROOM ATTENDANT us Eduardo Shipman DO PATHOLOGY/CYTOLOGY ORDERABLES F inal Result [facility] [address] [place] [address], [id number] documented in this encounter Visit Diagnoses Diagnosis RUQ pain Abdominal pain, right upper quadrant Diarrhea, unspecified type Chronic GERD documented in this encounter Admitting Diagnoses Diagnosis RUQ pain Abdominal pain, right upper quadrant Diarrhea, unspecified type Chronic GERD documented in this encounter Administered Medications Inactive Administered Medications - up to 3 most recent administrations Medication Order MAR Action Action Date Dose Rate Site acetaminophen (TYLENOL) tablet 650 mg 650 mg, Oral, Once as needed, Mild pain (Scale 1 - 3), 1 dose, Starting on Mon11/15/23 at 1157, Until Mon11/15/23 at 1425, Maximum dose of acetaminophen is 4000 mg from all sources in 24 hours., PACU lactated ringers infusion at 10 mL/hr, Intravenous, Continuous, Starting on Mon11/15/23 at 0915, Until Mon11/15/23 at 1425, Infuse at TKO rate, Pre-Op Continued by Anesthesia 11/15/2023 11:14 AM CLOAK ROOM ATTENDANT New Bag 11/15/2023 11:11 AM CLOAK ROOM ATTENDANT ondansetron (ZOFRAN) injection 4 mg 4 mg, Intravenous, Once as needed, Nausea, Vomiting, 1 dose, Starting on Mon11/15/23 at 1157, Until Mon11/15/23 at 1425, Administer slowly over 3-4 minutes. If more than one antiemetic is ordered, use in this order: ondansetron, diphenhydramine, metoclopramide, haloperidol, promethazine. If nausea / vomiting still not controlled, move to next ordered medication., PACU documented in this encounter Active and Recently Administered Medications Times are shown in CLOAK ROOM ATTENDANT. Continuous Medication Order 11/13/2023 11/14/2023 11/15/2023 lactated ringers infusion at 10 mL/hr, Intravenous, Continuous, Starting on Mon11/15/23 at 0915, Until Mon11/15/23 at 1425, Infuse at TKO rate, Pre-Op 1111 (New Bag - Prov ider: Guicho Fernandez CRNA)1114 (Continued by Anesthesia - Provider: Guicho Fernandez CRNA)1148 (Anesthesia Volume Adjustment - Provider: uGicho Fernandez CRNA) PRN Medication Order 11/13/2023 11/14/2023 11/15/2023 acetaminophen (TYLENOL) tablet 650 mg 650 mg, Oral, Once as needed, Mild pain (Scale 1 - 3), 1 dose, Starting on Mon11/15/23 at 1157, Until Mon11/15/23 at 1425, Maximum dose of acetaminophen is 4000 mg from all sources in 24 hours., PACU ondansetron (ZOFRAN) injection 4 mg 4 mg, Intravenous, Once as needed, Nausea, Vomiting, 1 dose, Starting on Mon11/15/23 at 1157, Until Mon11/15/23 at 1425, Administer slowly over 3-4 minutes. If more than one antiemetic is ordered, use in this order: ondansetron, diphenhydramine, metoclopramide, haloperidol, promethazine. If nausea / vomiting still not controlled, move to next ordered medication., PACU documented in this encounter Additional Health Concerns Assessment Noted Time PHQ-9 Depression Total Score: 4 07/07/20 23 8:53 AM CDT documented as of this encounter Care Teams Tank Truck Driver Relationship Specialty Start Date End Date Vania Brown MD [address] [place] [address] [address] [place] [address] PCP - General FAMILY PRACTICE 05/16/18 Tremayne Shi MD [facility]. [address] [place] [address] EP Guest Services Manager CARDIOVASCULAR DISEASE 08/15/18 documented as of this encounter
--- OUTSIDE RECORDS SUMMARY | 2024-08-27 04:44 | XMS_ITS | Encounter Summary ---
Author Organization [facility] Address [address] [place] [address]. [place], [place] [id number] [place] [id number] Care Team Providers Care Efficiency Manager Name Role Phone Albert Ruby MD Primary Care Provider [phone] Tremayne Shi MD Unavailable [phone] Reason for Referral * Imaging (Routine) - Closed Specialty Diagnoses / Procedures Referred By Contac t Referred To Contact RADIOLOGY Diagnoses RUQ pain Diarrhea, unspecified type LUQ pain Chronic GERD Procedures CT ABD W Marin Pepper NP [address] [address] Phone: tel: fax: Referral ID Status Reason Start Date Expiration Date Visits Re quested Visits Authorized [id number] Closed 10/05/2023 10/05/2024 1 1 UTIVE CHEF ASSISTANT Reason for Visit * Imaging (Routine) - Closed Specialty Diagnoses / Procedures Referred By Contac jonh Referred To Contact RADIOLOGY Diagnoses RUQ pain Diarrhea, unspecified type LUQ pain Chronic GERD Procedures CT ABD W Marin Pepper NP [address] [address] Phone: tel: fax: Referral ID Status Reason Start Date Expiration Date Visits Re quested Visits Authorized [id number] Closed 10/05/2023 10/05/2024 1 1 Encounter Details Date Type Department Care Team (Latest Contact Info) Description 10/16/2023 8:01 AM EXECUTIVE CHEF ASSISTANT - 10/16/2023 11:59 PM [facility] Hospital Encounter [facility] [address] [place] [address] Marin Araujo NP 3 [facility] [address] [place] [address] Discharge Disposition: Home or Self Care (Routine [...] on file documented as of this encounter Medications at Time of Discharge esomeprazole (NEXIUM) 40 MG capsule Take 1 capsule (40 mg total) by mouth every morning before breakfast. ALPRAZolam (XANAX) 0.25 MG tabletIndications: Anxiety Take 1 tablet (0.25 mg total) by mouth nightly as needed for Sleep. 30 tablet 08/11/2023 10/20/19 24 cholestyramine (QUESTRAN) 4 G packetIndications: RUQ pain,Diarrhea, unspecified type Take 1 packet (4 g total) by mouth 2 (two) times daily with meals. 60 each 10/05/2023 05/01/20 24 cloNIDine (CATAPRES) 0.2 MG tabletIndications: Primary insomnia Take 1 tablet (0.2 mg total) by mouth every evening. 30 tablet 3 07/07/2023 11/09/19 24 metoprolol succinate ER (TOPROL-XL) 100 MG 24 hr tabletIndications: Palpitations,Prima ry hypertension Take 1 tablet (100 mg total) by mouth daily. 90 tablet 1 05/04/2023 10/30/19 24 Na sulfate-K sulfate-Mg sulfate (SUPREP BOWEL PREP KIT) 17.5-3.13-1.6 GM/177ML SolutionIndication s:RUQ pain,Diarrhea, unspecified type,LUQ pain Take 177 mLs by mouth every 12 (twelve) hours. Per GI instructions 354 mL 10/05/2023 11/15/19 24 Norgestimate-Ethin yl Estradiol (TRI-LO-NEENA) 0.18/0.215/0.25 MG-25 MCG tabletIndications: Encounter for other contraceptive management Take 1 tablet by mouth once daily 28 tablet 2 10/09/2023 01/05/20 24 sertraline (ZOLOFT) 50 MG tabletIndications: Anxiety Take 1 tablet (50 mg total) by mouth daily. 90 tablet 3 07/07/2023 07/15/20 24 vitamin D2, ergocalciferol, (DRISDOL) 1.25 mg capsuleIndications :Vitamin D deficiency Take 1 capsule (50,000 Units total) by mouth every 7 days. 12 capsule 3 06/22/2023 05/20/20 24 documented as of this encounter Plan of Treatment Not on file documented as of this encounter Procedures Procedure Name Priority Date/Time Associated Diagnosis Comments CT ABD W CON Routine 10/16/2023 8:32 AM EXECUTIVE CHEF ASSISTANT RUQ pain Diarrhea, unspecified type LUQ pain Chronic GERD documented in this encounter Results * CT ABD W CON (10/16/2023 8:32 AM EXECUTIVE CHEF ASSISTANT) Anatomical Region Laterality Modality Abdomen Computed Tomogra phy 10/19/2023 9:29 AM EXECUTIVE CHEF ASSISTANT Impressions 10/19/2023 9:57 AM EXECUTIVE CHEF ASSISTANT =====IMPRESSION:===== 1. Small sliding hiatal hernia. 2. No acute or other significant localizing abdominal process/findings seen to provide a potential explanation for the patient's symptoms. Ordered By: MARIN ARAUJO Interpreted By: Michelle Sifuentes MD, 10/19/2023 9:29 AM Narrative 10/19/2023 9:57 AM EXECUTIVE CHEF ASSISTANT Exam: CT abdomen with contrast Exam Date/Time: 10/16/2023 8:06 AM Indication: 23 female. Chronic right upper quadrant pain for one year. Mesenteric adenitis. Diarrhea. Chronic GERD ?? Comparison: CT abdomen pelvis 04/10/2020 Technique: Computed tomography of the abdomen performed following uneventful IV administration of 140 mL Isovue-370 contrast. A dose lowering technique was used for this procedure, which may include, but is not limited to, dose reduction technique, automated exposure control, the use of iterative reconstruction, and ALARA (As Low As Reasonably Achievable) / Image Gently techniques. . CT findings: LOWER CHEST Normal cardiac size. No pericardial or pleural effusion. Imaged lung bases are clear.. ABDOMEN Liver and bile ducts: Normal size and morphology of the liver. No focal liver lesion. ??Portal vein and hepatic veins are patent. No intra or extrahepatic biliary tree dilatation. Gallbladder: Unremarkable. No calcific cholelithiasis, gallbladder wall thickening or pericholecystic fluid. Pancreas: Normal. Spleen: Upper normal splenic size measuring 13.0 cm. No focal finding. RETROPERITONEUM Adrenals: Normal. Kidneys: Normal size, morphology and enhancement. No collecting system obstruction, suspicious lesion or perinephric stranding. Lymph nodes: No mesenteric or retroperitoneal adenopathy. BOWEL AND PERITONEUM Bowel: Small sliding hiatal hernia. Normal caliber and thickness of the imaged bowel. No acute or significant gastrointestinal tract finding.. Free air or fluid: None. VASCULATURE Abdominal aorta and remainder of the visualized vasculature is unremarkable within study limits. BONES/SOFT TISSUES No significant lesion. Procedure Note Michelle Sifuentes MD - 10/19/2023 Exam: CT abdomen with contrast Exam Date/Time: 10/16/2023 8:06 AM Indication: 23 female. Chronic right upper quadrant pain for one year.Mesenteric adenitis. Diarrhea. Chronic GERD Comparison: CT abdomen pelvis 04/10/2020 Technique: Computed tomography of the abdomen performed followinguneventful IV administration of 140 mL Isovue-370 contrast. A doselowering technique was used for this procedure, which may include, but isnot limited to, dose reduction technique, automated exposure control, theuse of iterative reconstruction, and ALARA (As Low As ReasonablyAchievable) / Image Gently techniques. . CT findings: LOWER CHEST Normal cardiac size. No pericardial or pleural effusion. Imaged lung basesare clear.. ABDOMEN Liver and bile ducts: Normal size and morphology of the liver. No focalliver lesion. Portal vein and hepatic veins are patent. No intra or extrahepatic biliary tree dilatation. Gallbladder: Unremarkable. No calcific cholelithiasis, gallbladder wallthickening or pericholecystic fluid. Pancreas: Normal. Spleen: Upper normal splenic size measuring 13.0 cm. No focal finding. RETROPERITONEUM Adrenals: Normal. Kidneys: Normal size, morphology and enhancement. No collecting systemobstruction, suspicious lesion or perinephric stranding. Lymph nodes: No mesenteric or retroperitoneal adenopathy. BOWEL AND PERITONEUM Bowel: Small sliding hiatal hernia. Normal caliber and thickness of theimaged bowel. No acute or significant gastrointestinal tract finding.. Free air or fluid: None. VASCULATURE Abdominal aorta and remainder of the visualized vasculature isunremarkable within study limits. BONES/SOFT TISSUES No significant lesion. =====IMPRESSION:===== 1. Small sliding hiatal hernia. 2. No acute or other significant localizing abdominal process/findingsseen to provide a potential explanation for the patient's symptoms. Ordered By: MARIN ARAUJO Interpreted By: Michelle Sifuentes MD, 10/19/2023 9:29 AM Marin Araujo NP CT Final Resul t documented in this encounter Visit Diagnoses Diagnosis RUQ pain Abdominal pain, right upper quadrant Diarrhea, unspecified type LUQ pain Abdominal pain, left upper quadrant Chronic GERD documented in this encounter Administered Medications Inactive Administered Medications - up to 3 most recent administrations Medication Order MAR Action Action Date Dose Rate Site iopamidol (ISOVUE-370) 76 % injection 140 mL 140 mL, Intravenous, IMG once as needed, Contrast, 1 dose, Starting on Mon10/16/23 at 0832, Until Mon10/16/23 at 0833 Given 10/16/2023 8:33 AM EXECUTIVE CHEF ASSISTANT 140 mLs Right Arm documented in this encounter Additional Health Concerns Assessment Noted Time PHQ-9 Depression Total Score: 4 07/07/20 8:53 AM CDT documented as of this encounter Care Teams Efficiency Manager Relationship Specialty Start Date End Date Albert Ruby MD [address] [place], [place] [id number] PCP - General FAMILY PRACTICE 05/16/18 Tremayne Shi MD [address] [place], [place] [id number] EP Wellness Guide CARDIOVASCULAR DISEASE 08/15/18 documented as of this encounter
--- OUTSIDE RECORDS SUMMARY | 2024-08-27 04:44 | XMS_ITS | Data Portability ---
Author Organization [facility] [place] Address [address] [place] [address] Assessment Encounter Date Assessment Date Assessment LastModified by Organization Details LastModified Time 12/18/2019 12/18/2019 Nexplanon Insertion Not available 12/18/2019 11:55:38 Plan of Treatment Reminders Order Date Submit Date Provider Last Modified By Organization Details Last Modified Time Details Appointments None recorded . Lab pregnanc y test, urine 2022 023 alonso Ames, [facility] [address], [place], [address], 3 16:31:35 Referral None recorded . Procedures None recorded . Surgeries None recorded . Imaging None recorded . Medication Orders metronid azole 0.75 % (37.5 mg/5 gram) vaginal gel 2022 023 [facility], [address] [place], [address], 3 16:27:45 Depo-Pro vera 150 mg/mL intramus cular syringe 2022 023 [facility], [address] [place], [address], 3 17:34:52 Depo-Pro vera 150 mg/mL intramus cular syringe 2022 023 [facility] [address], [address] [place], [address], 3 16:59:16 Patient TargetsNo targets recorded. Patient Instructions Encounter Date Encounter Id Patient Instructions Last Modified By Organization Details Last Modified Time 12/18/2019 [id number] surgical trays* [id number] Not availa ble 12/28/2019 00:08:59 Post-procedure instructions reviewed after insertion of Nexplanon device. She is to RTO x 3mos for Medication check. Contact office if issues or concerns prior to upcoming appt. Not available 12/18/2019 11:31:20 Reason for Referral None Reported. Results Created Date Observation Date Name Description Value Unit Range Abnormal Flag Note LastModifiedBy Organization Detail LastModifiedTime 09/08/20 22 09/08/2022 IMAGE GUIDE D PAP, REFLE X HPV IF ASCUS ONLY image guided Pap, reflex HPV ASCUS only SEE RESULT S BELOW CASE REPOR T: Cytol ogy Gynec ologi kate Repor t Case: [id number] Autho ti g Provi trena: Missy Stahl, ALFA Colle cted: 09/08 1903 Order ing Locat ion: [place] [facility] Recei olamide: 09/10 1423 First Scree n: Ksenia Christie, CT Rescr een: Shelly Pittman , [place] Speci men: Scree berlin Pap - Image d, Cervi x STATE MENT OF ADEQU ACY: Satis facto ry for evalu ation Trans forma tion zone compo nent absen t The absen ce of an endoc ervic al compo nent was confi rmed by an addit ional scremedardo ner. FINAL DIAGN OSIS: Negat theresa for Intra epith elial Lesio n or Deshawn arellano (NIL) . Shift in brendon sugge stive of bacte rial vagin osis. Elect kavon ordaz by Shelly Pittman , [place] on 023 at 11:16 AM ----- ----- ----- ----- ----- ----- ----- ----- ----- ----- ----- ----- ----- ----- ----- ----- ----- ---- COMME NT: Note: This speci men was revie wed by a Cytot echno logis t and/o r Patho logis t (as indic ated in this repor t) after evalu ation using the Thinp rep Imagi ng Syste m. CLINI KATE INFOR MATIO N: Menst rual Statu s: LMP (if appli cable ): 08/30 Clini kate Histo ry/Pr eviou s Pap: Type of Neopl pieter (if appli cable ): Signi fican t Clini kate Findi ngs: Other Histo ry: Hormo nadya (if appli cable ): PAP EDUCA SIOMARA L NOTE: The Pap Test is a scree berlin test with an inher ent false negat theresa rate. Liqui d-bas ed sampl ing may decre ase, but will not elimi kurt, false negat theresa resul ts. A negat theresa resul t does not precl ude the prese nce and/o r devel opmen t of disea se, since the prese nce of abnor mal cells in the sampl e depen ds on the locat ion of the lesio n and sampl ing techn ique. Noemi nued regul ar scree berlin is the best metho d of cance r preve ntion . If repor adeline cytol ogic findi ng do not corre late with physi kate and/o r histo rical findi ngs, furth er inves tigat ion is recom joe d, as clini kathy wong nted. Not Available [facility] (Lab) [address], [place], [address], 09/14/2022 12:18:32 09/08/20 22 09/08/2022 CT/GC (LORRAINE) , THINP REP VIAL chlamydia trachomatis, PCR Negati ve negati ve Not Available [facility] (Lab) [address], [place], [address], 09/14/2022 12:18:32 09/08/20 22 09/08/2022 CT/GC (LORRAINE) , THINP REP VIAL neisseria gonorrhoeae, PCR Negati ve negati ve Not Available [facility] (Lab) [address], [place], [address], 09/14/2022 12:18:32 09/08/20 22 09/08/2022 TRICH OMONA S VAGIN FLORINDA (RRNA ) trichomonas vaginalis ribosomal RNA (rrna) Negati ve negati ve Not Available [facility] (Lab) [address], [place], [address], 09/14/2022 12:18:33 09/16/19 23 09/16/2022 pregn courtney test, urine HCG negati ve Not Available [place] [address], [place], [address], 09/16/2022 16:31:27 Result Notes None recorded. Problems Name Problem SNOMED Code Status Onset Date Resolution Date Notes Provider Name and Address Organization Details Recorded Time Pain in female genitalia Active 2019 Dysmenorrhe a;Recorded Elsewhere: No Location : [facility] Sour ce: EHR Chronic : N Practice ID: [id number] Billab le Time: 09:00:00 AM Not Available [facility] 0 16:14:24 Education Active 2019 Encounter for other general counseling and advice on contracepti on;Recorded Elsewhere: No Location : [facility] Sour ce: EHR Chronic : N Practice ID: [id number] Billab le Time: 09:00:00 AM Not Available [facility] 0 16:14:24 Problem Notes None recorded. Procedures Surgical History Date Name Laterality Status Provider Name and Address Organization Details Recorded Time 3 Control Implant Removal completed ARI Hidalgo- [address], [place], [address], [facility] 09/16/2022 17:07:24 0 Control Implant Insertion completed ARI Hidalgo-KARUNA [address], [place], [address], [facility] 12/18/2019 11:29:26 repair of tendo achilles completed [facility] 12/18/2019 10:57:41 procedure on ankle completed [facility] 12/18/2019 10:58:45 Imaging Results None recorded. Procedure Notes None recorded. Medical Equipment None Reported. Allergies No known drug allergies Medications Name Sig Start Date Stop Date Status Note LastModified by Organization Details LastModified Time venlafaxi ne ER 37.5 mg capsule,e xtended release 24 hr take 1 capsule by oral route every day with food 09/08 completed Prescrib ed Elsewher e: Yes Loca tion: [facility] M odify By: ernesto meng DateTime : 12/17/19 09:00:00 AM Not Available Not Available Not Available venlafaxi ne ER 75 mg capsule,e xtended release 24 hr TAKE 1 CAPSULE BY MOUTH ONCE DAILY active Not Available Not Available No t Available diltiazem CD 180 mg capsule,e xtended release 24 hr 03/18 completed Not Available Not Available Not Available metoprolo l succinate ER 50 mg tablet,ex tended release 24 hr TAKE 1 TABLET BY MOUTH ONCE DAILY active Not Available Not Available No t Available hydrocodo ne 5 mg-acetam inophen 325 mg tablet 03/18 completed Not Available Not Available Not Available metronida zole 0.75 % (37.5 mg/5 gram) vaginal gel Insert 1 applicat orful every day by vaginal route at bedtime for 5 days. 2022 active Not Available Not Available Not Avai lable alprazola m 0.25 mg tablet TAKE 1 TABLET BY MOUTH NIGHTLY NEEDED FOR SLEEP active Not Available Not Available No t Available citalopra m 20 mg tablet 03/18 completed Not Available Not Available Not Available dicyclomi ne 20 mg tablet active Not Available Not Available Not Available promethaz ine 25 mg tablet 09/08 completed Not Available Not Available Not Available diazepam 5 mg/mL oral concentra te take 1 millilit er by oral route 2 times every day 09/08 completed Prescrib ed Elsewher e: Yes Loca tion: [facility] M odify By: [email or web address] Medardo [email or web address] DateTime : 12/17/19 09:00:00 AM Not Available Not Available Not Available sertralin e 25 mg tablet TAKE 1 TABLET BY MOUTH ONCE DAILY FOR 14 DAYS THEN INCREASE TO 2 TABLETS BY MOUTH ONCE DAILY THEREAFT ER active Not Available Not Available No t Available sertralin e 50 mg tablet TAKE 1 TABLET BY MOUTH ONCE DAILY active Not Available Not Available No t Available naproxen 500 mg tablet 03/18 completed Not Available Not Available Not Available medroxypr ogesteron e 150 mg/mL intramusc ular syringe INJECT 1ML INTRAMUS CULARY EVERY 3 MONTHS DIRECTED active Not Available Not Available No t Available aripipraz ole 5 mg tablet TAKE 1 TABLET BY MOUTH ONCE DAILY active Not Available Not Available No t Available Tri-Sprin mimi (28) 0.18 mg(7)/0.2 15 mg(7)/0.2 5 mg(7)-35 mcg tablet 03/18 completed Not Available Not Available Not Available diazepam 09/08 completed Not Available Not Available Not Available venlafaxi ne 09/08 completed Not Available Not Available Not Available Nexplanon active Not Available Not Gia ilable Not Available Vitals Date Recorded Body height Body mass index (BMI) Body weight Systolic blood pressure Diastolic blood pressure Provider Name and Address Organization Details Last Updated DateTime 09/08/2022 165.1 cm 45.1 kg/m2 026681.5 3 g 124 mm[Hg] 86 mm[Hg] [facility] 2 15:24:55 Date Recorded Body height Body mass index (BMI) Body weight Systolic blood pressure Diastolic blood pressure Provider Name and Address Organization Details Last Updated DateTime 09/14/2022 165.1 cm 45.1 kg/m2 259397.5 3 g 124 mm[Hg] 84 mm[Hg] [facility] 3 15:58:47 Date Recorded Body height Body mass index (BMI) Body weight Provider Name and Address Organization Details Last Updated DateTime 09/16/2022 165.1 cm 45.1 kg/m2 513899.53 g , [facility] 09/16/2022 16:28:33 Date Recorded Systolic blood pressure Diastolic blood pressure Provider Name and Address Organization Details Last Updated DateTime 09/16/2022 122 mm[Hg] 80 mm[Hg] Lashell Blount, [facility]- [address], [place], [address], [facility] 09/16/2022 17:06:55 Date Recorded Body height Body mass index (BMI) Percentile per age and sex Body mass index (BMI) Body weight Systolic blood pressure Diastolic blood pressure Provider Name and Address Organization Details Last Updated DateTime 0 2010.68 cm 1 % 0.3 kg/m2 980039. 2 g 137 mm[Hg] 82 mm[Hg] Karolina Payne [facility] 0 11:08:56 Social History Question Answer Notes LastModified by Organizat ion Details LastModified Time Tobacco Smoking Status Never Smoker Lucrecia Ramos [place], [facility] 09/14/2022 15:18:47 What Is Your Level Of Alcohol Consumption? None Information not available 09/08/2022 Are You Blind Or Do You Have Difficulty Seeing? No Information not available 09/08/2022 Are You Deaf Or Do You Have Serious Difficulty Hearing? No Information not available 09/08/2022 What Type Of Diet Are You Following? REGULAR Information not available 09/08/2022 Sex: Unknown Functional Status Question Answer Note LastModified by Organizat ion Details LastModified Time Do you have difficulty walking or climbing stairs? No [email or web address] Information not available 09/14/2022 Are you able to walk? YESWOREST Information not available 09/08/2022 Are you able to care for yourself? Yes [email or web address] Information not available 09/14/2022 Do you have difficulty dressing or bathing? No [email or web address] Information not available 09/14/2022 What is your exercise level? Occasional Information not available 09/08/2022 Mental Status None recorded. Family History Relationship Description Onset Age of this Age Resolved Age Notes LastModified by Organization Details LastModified Time Mother Heart disease vschroedter Not available 12/2022 15:58:50 Mother Hypertensive disorder vschroedter Not available 12/2022 15:58:50 Mother Disorder of thyroid gland vschroedter Not available 12/2022 15:58:50 Mother Cyst of ovary vschroedter Not available 12/2022 15:58:50 Mother Hypertensive disorder vschroedter Not available 12/2022 15:58:51 Mother Heart disease vschroedter Not available 12/2022 15:58:51 Mother Disorder of thyroid gland vschroedter Not available 12/2022 15:58:51 Maternal Grandmother Cancer cervix - screening done vschroedter Not available 12/2022 15:58:51 Maternal Grandmother Ovarian cancer, disseminated vschroedter Not available 0 09/14/2022 15:58:51 Maternal Grandmother Congenital heart disease vschroedter Not available 12/2022 15:58:51 Maternal Grandmother Diabetes mellitus vschroedter Not available 12/2022 15:58:51 Maternal Grandmother History of hypertension vschroedter Not available 0 09/14/2022 15:58:51 Maternal Grandmother Diabetes mellitus vschroedter Not available 12/2022 15:58:51 Maternal Aunt Congenital heart disease vschroedter Not available 12/2022 15:58:51 Maternal Aunt Diabetes mellitus vschroedter Not available 12/2022 15:58:51 Maternal Aunt History of hypertension vschroedter Not available 0 09/14/2022 15:58:51 Maternal Aunt Diabetes mellitus vschroedter Not available 12/2022 15:58:51 Maternal Grandfather Congenital heart disease vschroedter Not available 12/2022 15:58:51 Maternal Grandfather History of hypertension vschroedter Not available 0 09/14/2022 15:58:51 Notes:Maternal aunt: Diabete s mellitus, Hypertension, Congenital heart disease Maternal grandfather: Hypertension, Congenital heart disease Maternal grandmother: Cancer, ovarian, Hypertension, Congenital heart disease, Diabetes mellitus, Cancer, cervical Mother: Hypertension, Congenital heart disease, ovarian cyst, pcos, Thyroid disease Medical History Condition Response Anxiety Disorder Y Other N Anemia Y Asthma Y Psychiatric Illness Y Gynecological History Statement/Question Response Flow Light Date of LMP 09/05/2022 STIs/STDs N HPV Vaccine N Duration of Flow (days) 1 Current Control Method Other Are cycles usually normal N Sexually Active? Y Age of first menstrual cycle 11 Date of Last Pap Smear Sexual Problems? N Desired Control Method Implant LMP Approximate Obstetrics History GPAL:G 0 P 0 0 0 0 Past Encounters Encounter ID Performer Location Encounter Start Date Encounter Closed Date Diagnosis/Indication Diagnosis SNOMED-CT Code Diagnosis ICD10 Code [id number] Lashell Blount [facility] [address] [address] 12/18/2019 10:45:29 12/19/2019 13:01:22 Insertion of subcutaneous contraceptive 851088026 Z30.9 Irregular periods 471365 07 N92.6 [id number] Missy Stahl [facility] [address] [address] 09/08/2022 15:13:45 09/08/2022 16:37:57 Gynecologic examination 74660761 Z01.419 Z11.3 Z11.8 Contracept ion care management 563794163 Z30.9 [id number] Missy Stahl [facility] [address],[place] [address] 09/14/2022 15:18:24 09/14/2022 18:41:00 Vaginitis 20054774 N76.0 Contracept ion care management 765053146 Z30.9 [id number] Lashell Blount [facility] [address],[place] [address] 09/16/2022 16:09:52 09/16/2022 17:23:57 Screening procedure 62454823 Z13.9 Contraception care 29964 5005 Z30.40 Removal of subcutaneous contraceptive 690734449 Z30.46 Health Concerns Section Related Observation LastModified by Organization Detai ls LastModified Time None Recorded Concern Status LastModified by Organization Details LastModified Time None Recorded Advance Directives Directive None Recorded Payers Encounter Date Sequence Insurance Name Policy Number Policy Brunson Covered Member ID Brunson Member ID Guarantor Name 12/18/2019 1 [facility] - DOS PRIOR TO 2021 (MEDICAID REPLACEMENT - HMO) Laura Tushar [id number] Laura Tushar 09/08/2022 1 [place] [id number] Laura Tushar [id number] Laura Tushar 09/14/2022 1 [place] [id number] 5 Laura Tushar [id number] Laura Tushar 09/16/2022 1 [place] [id number] 5 Laura Tushar [id number] Laura Tushar Notes Date Note Type Note Provider Name and Address Organization Details Recorded Time 12/18/2019 text/html Patient is here currently on her menses. She was given all the r/b/a of placement of the Nexplanon device and has signed the consent. She is fully aware of all possible side effects of the device and has decided to move forward with placement. Insertion site was cleansed with betadine and 3cc lidocaine used for anesthesia. Device was placed in the left arm per usual fashion w/o complication and patient instructed to f/u in one month or earlier if there are any si/sx of infection or hypersensitivity at the insertion site Lashell Blount [facility]- [address], [place], [address], [facility] 12/18/2019 13:21:36 09/08/2022 text/html Annual GYNReport ed bypatient.Menstrual cycle:Normal menses Urinary symptoms:No hematuria; No incontinence Vulva:No genital lesion Vagina:Normal vaginal discharge Breast:No breast pain; No breast lump; No nipple discharge Current Contraception:Subderm al contraceptive implant Sexual complaints:No sexual complaints; No pain during intercourse; Normal libido Menopausal Symptoms:No menopausal symptoms; Normal vaginal lubrication Psychological symptoms:No depression; No anxiety; No PMDD Preventive measures:Encourage self breast examination; Encourage regular exercise; Encourage no tobacco use; Encourage regular mammograms starting age 40 ARI Matson [address], [place], [address], [facility] 09/08/2022 16:03:19 09/14/2022 text/html 22yo [id number] for BC consultShe has nexplanon currently, was considering nexplanon removal with IUD insertion but no longer desires IUD.Would like something that does not have to be taken dailyDoes not like unpredictable bleeding with nexplanonRecent STI testing (-)Recent pap WNL, possible BV Medical hx : SVT, follows with cardiology / anemia ARI Matson [address], [place], [address], [facility] 09/14/2022 17:57:06 09/16/2022 text/html Here today for nexplanon removal & switching to Depo. ARI Hidalgo-[facility] [address], [place], [address], [facility] 09/16/2022 17:08:59 OBGyn Episode No OBEpisode recorded.
--- OUTSIDE RECORDS SUMMARY | 2024-08-27 04:44 | XMS_ITS | Encounter Summary ---
Author Organization [facility] Address [address] [place] [address]. [place], [place] [address] [place] [address] Care Team Providers Care Engineering Scientist Name Role Phone Albert Ruby MD Primary Care Provider [phone] Tremayne Shi MD Unavailable [phone] Reason for Visit * Reason Comments Anxiety 4 week f/u on Insomn ia Encounter Details Date Type Department Care Team (Late st Contact Info) Description 08/11/2023 8:00 AM REGIONAL MAINTENANCE MANAGER Office Visit [facility] Family and Sports Medicine - [place] [address] [place] [address] Albert Ruby MD [address] [address] Anxiety (4 week f/u on Insomnia) Social History Tobacco Use Types Packs/Day Years [...] Date Recorded Patient Health Questionnaire-2 Score 0 07/07/2023 Comments No Sex and Gender Information Value [...] Sign Reading Time Taken Comments Blood Pressure 115/79 08/11/2023 8:06 AM REGIONAL MAINTENANCE MANAGER Pulse 73 08/11/2023 8:06 AM REGIONAL MAINTENANCE MANAGER Temperature - - Respiratory Rate 20 08/11/2023 8:06 AM REGIONAL MAINTENANCE MANAGER Oxygen Saturation 97% 08/11/2023 8:06 AM REGIONAL MAINTENANCE MANAGER Inhaled Oxygen Concentration - - Weight 137 kg (302 lb) 08/11/2023 8:06 AM REGIONAL MAINTENANCE MANAGER Height 165.1 cm (5' 5 ) 08/11/2023 8:06 AM REGIONAL MAINTENANCE MANAGER Body Mass Index 50.26 08/11/2023 8:06 AM REGIONAL MAINTENANCE MANAGER documented in this encounter Progress Notes * Albert Ruby MD - 08/11/2023 8:00 AM CST Images from the original note were not included. [facility] Special[facility] Encounter Date: 08/11/2023 Reason for Visit: Laura is an 22-year-old female here for Anxiety (4 week f/u on Insomnia) History of Present Illness: SUBJECTIVE: Laura Finley is a 22-year-old female who is here for a f/u. Over all doing well, takes medications regularly, no side effects. Patient Care Team: Albert Ruby MD as PCP - General (FAMILY PRACTICE) Tremayne Shi MD as EP Hat And Cap Drying Room Attendant (CARDIOVASCULAR DISEASE) Medications: Current Outpatient Medications Medication Sig Dispense Refill ALPRAZolam (XANAX) 0.25 MG tablet Take 1 tablet (0.25 mg total) by mouth nightly as needed for Sleep. 30 tablet 0 cloNIDine (CATAPRES) 0.2 MG tablet Take 1 tablet (0.2 mg total) by mouth every evening. 30 tablet 3 esomeprazole (NEXIUM) 40 MG capsule Take 1 capsule (40 mg total) by mouth every morning before breakfast. metoprolol succinate ER (TOPROL-XL) 100 MG 24 hr tablet Take 1 tablet (100 mg total) by mouth daily. 90 tablet 1 Norgestimate-Ethinyl Estradiol (ORTHO TRI-CYCLEN LO) 0.18/0.215/0.25 MG-25 MCG tablet Take 1 tabletby mouth daily. 28 tablet 5 sertraline (ZOLOFT) 50 MG tablet Take 1 tablet (50 mg total) by mouth daily. 90 tablet 3 vitamin D2, ergocalciferol, (DRISDOL) 1.25 mg capsule Take 1 capsule (50,000 Units total) by mouth every 7 days. 12 capsule 3 No current facility-administered medications for this visit. Health Maintenance Topic Date Due Hepatitis C Never done Cervical Cancer Screening 08/11/2024 (Originally 1999) DTaP, Tdap and Td Vaccines (7 - Td or Tdap) 08/11/2024 (Originally 05/01/2023) COVID-19 Vaccine (2022- season) 2112 (Originally 05/12/2023) Annual Physical 07/07/2024 HPV Vaccines Completed Meningococcal Vaccine Completed Influenza Adult Completed Pneumococcal Vaccine: Pediatrics (0 to 5 Years) and At-Risk Patients (6 to 64 Years) Aged Out RSV Immunizations Under 20 Months Aged Out History Past Medical History: Diagnosis Date Anxiety Asthma Depression GERD (gastroesophageal reflux disease) Heart murmur Hypertension Migraine Palpitations Syncope Tachycardia Past Surgical History: Procedure Laterality Date ANKLE FRACTURE SURGERY FRACTURE SURGERY 06/2013 R ankle Family History Problem Relation Name Age of Onset Arthritis Mother Izabela Asthma Mother Izabela Hypertension Mother Izabela Depression Father Hubert Mental Health Father Hubert CHF Maternal Grandmother Maia Open Heart Maternal Grandmother Maia Heart Disease Maternal Grandmother Maia CHF Paternal Grandmother Heart Disease Maternal Grandfather Sergio Social History Socioeconomic History Marital status: Single Occupational History Employer: STUDENT Social History Tobacco Use Smoking status: Never Passive exposure: Never Smokeless tobacco: Never Substance Use Topics Alcohol use: No Active Problems: Patient Active Problem List Diagnosis Syncope Palpitations Tachycardia Achrochordon Allergic rhinitis Anxiety Insomnia Migraine Obesity PMS (premenstrual syndrome) Restless legs syndrome (RLS) Gall bladder disease Gastroesophageal reflux disease without esophagitis Medical History: Past Medical History: Diagnosis Date Anxiety Asthma Depression GERD (gastroesophageal reflux disease) Heart murmur Hypertension Migraine Palpitations Syncope Tachycardia Surgical History: Past Surgical History: Procedure Laterality Date ANKLE FRACTURE SURGERY FRACTURE SURGERY 06/2013 R ankle Family History: Family History Problem Relation Name Age of Onset Arthritis Mother Izabela Asthma Mother Izabela Hypertension Mother Izabela Depression Father Hubert Mental Health Father Hubert CHF Maternal Grandmother Maia Open Heart Maternal Grandmother Maia Heart Disease Maternal Grandmother Maia CHF Paternal Grandmother Heart Disease Maternal Grandfather Sergio Social History: Social History Socioeconomic History Marital status: Single Occupational History Employer: STUDENT Tobacco Use Smoking status: Never Passive exposure: Never Smokeless tobacco: Never Vaping Use Vaping Use: Never used Substance and Sexual Activity Alcohol use: No Drug use: No Sexual activity: Not Currently Partners: Male control/protection: OCP Other Topics Concern Exercise Yes Special Diet No Caffeine Concern No Medications: Current Outpatient Medications: ALPRAZolam (XANAX) 0.25 MG tablet, Take 1 tablet (0.25 mg total) by mouth nightly as needed for Sleep., Disp: 30 tablet, Rfl: 0 cloNIDine (CATAPRES) 0.2 MG tablet, Take 1 tablet (0.2 mg total) by mouth every evening., Disp: 30 tablet, Rfl: 3 esomeprazole (NEXIUM) 40 MG capsule, Take 1 capsule (40 mg total) by mouth every morning before breakfast., Disp: , Rfl: metoprolol succinate ER (TOPROL-XL) 100 MG 24 hr tablet, Take 1 tablet (100 mg total) by mouth daily., Disp: 90 tablet, Rfl: 1 Norgestimate-Ethinyl Estradiol (ORTHO TRI-CYCLEN LO) 0.18/0.215/0.25 MG-25 MCG tablet, Take 1 tablet by mouth daily., Disp: 28 tablet, Rfl: 5 sertraline (ZOLOFT) 50 MG tablet, Take 1 tablet (50 mg total) by mouth daily., Disp: 90 tablet, Rfl: 3 vitamin D2, ergocalciferol, (DRISDOL) 1.25 mg capsule, Take 1 capsule (50,000 Units total) by mouthevery 7 days., Disp: 12 capsule, Rfl: 3 Allergies: No Known Allergies Vitals: Filed Vitals: 08/11/23 0806 BP: 115/79 Pulse: 73 Resp: 20 SpO2: 97% Weight: (!) 137 kg (302 lb) Height: 1.651 m (5' 5 ) Body mass index is 50.26 kg/m??. BMI Readings from Last 5 Encounters: 08/11/23 50.26 kg/m?? 07/07/23 49.59 kg/m?? 05/04/23 49.59 kg/m?? 07/01/22 46.10 kg/m?? 06/17/21 45.43 kg/m?? Wt Readings from Last 3 Encounters: 08/11/23 (!) 137 kg (302 lb) 07/07/23 135.2 kg (298 lb) 05/04/23 135.2 kg (298 lb) ROS: Review of Systems Constitutional: Negative for fever or chills. HENT: Negative for congestion or sore throat. Eyes: Negative for eye discomfort or blurred vision. Cardiovascular: Negative for chest pain or dyspnea on exertion. Respiratory: Negative for cough or shortness of breath. Endocrine: Negative for increased thirst or urination. Skin: Negative for itching or rash. Gastrointestinal: Negative for constipation or diarrhea. Genitourinary: Negative for bladder incontinence or painful urination. Neurological: Negative for weakness of a limp or painful gait. Psychiatric/Behavioral: Negative for memory loss or hallucinations. Physical Exam Constitutional: General: Patient is not in acute distress. Appearance: Normal appearance. Patient is well-developed, Average weight and height Comments: VSS HENT: Head: Normocephalic and atraumatic. Nose: normal appearance, no lesions, breathes from nose Mouth/Throat: No oropharyngeal exudate or posterior oropharyngeal erythema. Eyes: Extraocular Movements: Extraocular movements intact. Conjunctiva/sclera: Conjunctivae normal. Cardiovascular: Rate and Rhythm: Normal rate and regular rhythm. Pulses: Normal pulses. Heart sounds: Normal S1 and S2. Normal rate and rhythm. Pulmonary: Effort: Pulmonary effort is normal. No respiratory distress. Breath sounds: Normal breath sounds. Abdominal: General: There is no distension. Musculoskeletal: General: Fluid range of motion of body joints. Comfortable moving in chair and moves easily to examtable, take the step up and sits fine. Cervical back: Normal range of motion and neck supple. Skin: General: no rash appreciated in exposed skin Neurological: Mental Status: patient is alert and oriented. Psychiatric: Normal Mood and Affect. Pleasant and cooperative. Judgment normal. Laboratory and Imaging: Lab Results Component Value Date HGBA1C 5.1 06/21/2023 HGBA1C 5.0 11/13/2020 HGBA1C 5.2 05/24/2019 CR 0.82 06/21/2023 CR 0.79 11/13/2020 CR 0.96 04/10/2020 CR 0.80 05/24/2019 GFREST 103 06/21/2023 TSH 2.31 06/21/2023 TSH 1.082 11/13/2020 TSH 1.870 05/24/2019 FT4 1.09 05/24/2019 LDLC 62 11/13/2020 HDL 60 06/21/2023 HDL 52 11/13/2020 HDL 71 05/24/2019 Diagnoses/Impression: Encounter Diagnose(s) ICD-10-CM SNOMED CT(R) 1. Anxiety F41.9 ANXIETY ALPRAZolam (XANAX) 0.25 MG tablet Recommendations and Plan: 1. Anxiety Will have frequent check-ups. Effect of medication likely not to be seen for 4-6 weeks. The patientshould also consider counseling to talk through issues -- reviewed resources. Encouraged f/u in clinic in 3 Month(s). Review the rationale for treatment duration of greater than 6 months after symptoms are completely controlled. Counselled that once decision to stop the medication is reached, it will need to be slowly titrated off. Patient understands these risks and wants to continue therapy. - ALPRAZolam (XANAX) 0.25 MG tablet; Take 1 tablet (0.25 mg total) by mouth nightly as needed for Sleep. Dispense: 30 tablet; Refill: 0 Counseled on diet and exercise techniques and healthy weight with adequate cardiovascular fitness and leading an active lifestyle. Recommended daily exercise Minimum of 150 minutes per week over at least 3 days and dieting to lose weight if above a BMI of 25. Diet should be rich in vegetables, fruits and whole grains. Recommend low fat diets ( e.g.: DASH or Mediterranean) poultry, fish, legumes, nuts and non-tropical vegetable oils, limit sugar sweetened beverages and red meat. . Will get labs as per [facility]. See orders for this visit as documented in the electronic medical record. I spent at least 30 minutes today reviewing the patient's medical record, obtaining history, performing an exam, ordering medications and/or tests, documenting in the medical record and counseling and educating the patient/family/caregiver who understands and agrees with the treatment plan. that isnot including any time spent performing separately reportable services such as procedures, injections, musculoskeletal manipulation, etc... Orders Placed This Encounter ALPRAZolam (XANAX) 0.25 MG tablet Cannot display discharge medications since this is not an admission. Medications Discontinued During This Encounter Medication Reason ALPRAZolam (XANAX) 0.25 MG tablet Reorder ONAL MAINTENANCE MANAGER documented in this encounter Plan of Treatment Not on file documented as of this encounter Visit Diagnoses Diagnosis Anxiety Anxiety state, unspecified documented in this encounter Additional Health Concerns Assessment Noted Time PHQ-9 Depression Total Score: 4 07/07/20 8:53 AM CDT documented as of this encounter Care Teams Engineering Scientist Relationship Specialty Start Date End Date Albert Ruby MD [address] [place] [address] [address] [facility] [place] [address] PCP - General FAMILY PRACTICE 05/16/18 Tremayne Shi MD [facility]. Nnamdi [address] [place] [address] EP Hat And Cap Drying Room Attendant CARDIOVASCULAR DISEASE 08/15/18 documented as of this encounter
--- OUTSIDE RECORDS SUMMARY | 2024-08-27 04:44 | XMS_ITS | Encounter Summary ---
Author Organization [facility] Address [address] [place] [address]. [place], [place] [address] [place] [address] Care Team Providers Care Cable Assembler And Swager Name Role Phone Albert Ruby MD Primary Care Provider [phone] Tremayne Shi MD Unavailable [phone] Encounter Details Date Type Department Care Team (Latest Contact Info) Description 05/22/2023 Scan HEALTH INFO SRVCS Scanned, Doc Med [...] documented as of this encounter Care Teams Cable Assembler And Swager Relationship Specialty Start Date End Date Albert Ruby MD [address] [place] [address] [address] [place], [place] [id number] PCP - General FAMILY PRACTICE 05/16/18 Tremayne Shi MD [facility]. [facility] [address] [place], [place] [id number] EP Machine Spring Former CARDIOVASCULAR DISEASE 08/15/18 documented as of this encounter
--- OUTSIDE RECORDS SUMMARY | 2024-08-27 04:44 | XMS_ITS | Encounter Summary ---
Author Organization [facility] Address [address] [place] [address]. [place], [place] [address] [place] [address] Care Team Providers Care Electro Mechanic Name Role Phone Albert Ruby MD Primary Care Provider [phone] Tremayne Shi MD Unavailable [phone] Reason for Visit * Reason Comments Blood Pressure Elevated BP. Monday of this week it was 191/121 she felt dizzy, 171/102 couple hours later. Went to ER. 153/102 in ER. 119/100 before she left the ER. Encounter Details Date Type Department Care Team (Late st Contact Info) Description 05/04/2023 1:40 PM CDT Office Visit [facility] Medical Group Family and Sports Medicine - [place] [address] [place] [address] Tana Terry, CASING PULLER [address] [place] [address] Blood Pressure (Elevated BP. Monday of this week it was 191/121 she felt dizzy, 171/102 couple hours later. Went to ER. 153/102 in ER. 119/100 before she left the ER. ) Social History Tobacco Use Types Packs/Day Years Used Date Smoking Tobacco: Never Smokeless Tobacco: Never Tobacco Cessation:Counseling Given: [...] Sign Reading Time Taken Comments Blood Pressure 142/96 05/04/2023 2:05 PM CDT Pulse 87 05/04/2023 2:05 PM CDT Temperature 36.8 ??C (98.3 ??F) 05/04/2023 1:35 PM CD T Respiratory Rate 20 05/04/2023 1:35 PM CDT Oxygen Saturation 97% 05/04/2023 1:35 PM CDT Inhaled Oxygen Concentration - - Weight 135.2 kg (298 lb) 05/04/2023 1:35 PM CDT Height 165.1 cm (5' 5 ) 05/04/2023 1:35 PM CDT Body Mass Index 49.59 05/04/2023 1:35 PM CDT documented in this encounter Patient Instructions * Attachments The following attachments cannot be sent through Care Everywhere. * Controlling your blood pressure through lifestyle (Jamaican) documented in this encounter Progress Notes * Tana Terry NP - 05/04/2023 1:40 PM CDT Images from the original note were not included. Primary and Specialty Care [address], [address] [place] [address] OFFICE VISIT NOTE Encounter Date: 05/05/2023 Chief Complaint: Laura Finley is a 22-year-old female here for Blood Pressure (Elevated BP. Monday of this week it was 191/121 she felt dizzy, 171/102 couple hours later. Went to ER. 153/102 in ER. 119/100 before she left the ER. ) HPI Here to f/u from an ER visit for elevated BP. She states they did nothing and said it was likely anxiety and she needed to lose weight. She is on metoprolol for palpitations and has been for a few years. She does have a fh of htn. She would also like to change her control to an oral med as she feels the depo is causing herweight gain. Review of Systems Constitutional: Negative. Respiratory: Negative. Negative for shortness of breath. Cardiovascular: Negative. Negative for chest pain, palpitations and leg swelling. Gastrointestinal: Negative. Psychiatric/Behavioral: Negative. Patient Active Problem List Diagnosis Syncope Palpitations Tachycardia Achrochordon Allergic rhinitis Anxiety Insomnia Migraine Obesity PMS (premenstrual syndrome) Restless legs syndrome (RLS) Gall bladder disease Gastroesophageal reflux disease without esophagitis Past Medical History: Diagnosis Date Anxiety Asthma (HHS/HCC) Depression GERD (gastroesophageal reflux disease) Heart murmur Hypertension Migraine Palpitations Syncope Tachycardia Past Surgical History: Procedure Laterality Date ANKLE FRACTURE SURGERY FRACTURE SURGERY 06/2013 R ankle Family History Problem Relation Name Age of Onset Arthritis Mother Izabela Asthma Mother Izabela Hypertension Mother Izabela Depression Father Hubert CHF Maternal Grandmother Maia Open Heart Maternal Grandmother Maia Heart Disease Maternal Grandmother Maia CHF Paternal Grandmother Heart Disease Maternal Grandfather Sergio Social History Socioeconomic History Marital status: Single Spouse name: Not on file Number of children: Not on file Years of education: Not on file Highest education level: Not on file Occupational History Employer: STUDENT Tobacco Use Smoking status: Never Smokeless tobacco: Never Vaping Use Vaping Use: Never used Substance and Sexual Activity Alcohol use: No Drug use: No Sexual activity: Never Other Topics Concern Exercise Yes Special Diet No Caffeine Concern No Social History Narrative Not on file Social Determinants of Health Financial Resource Strain: Not on file Food Insecurity: Not on file Transportation Needs: Not on file Physical Activity: Not on file Stress: Not on file Social Connections: Not on file Intimate Partner Violence: Not on file Housing Stability: Not on file Immunization History Administered Date(s) Administered Dtap 1999, 01/18/2000, 03/17/2000, 03/26/2001 Dtap (Acel-Immune) 04/18/2005 Dtap (Generic) 1999, 01/18/2000, 03/17/2000, 03/26/2001, 04/18/2005 HPV 08/22/2011, 05/01/2013 HPV4 (Gardasil) 08/22/2011, 05/01/2013 Hepatitis A Vaccine - 2 Dose 10/29/2008, 08/22/2011 Hepatitis B 01/13/2000, 03/26/2001 Hepatitis B (Generic: Adult) 01/13/2000, 07/03/2000, 03/26/2001 Hepatitis B Pediatric 03/17/2000, 04/17/2000, 07/03/2000, 12/22/2000 Hib (Generic) 1999, 01/18/2000, 03/17/2000, 12/22/2000, 03/26/2001 Influenza 06/16/2010, 07/25/2011 Influenza Adult (Generic) 05/12/2020 MCV40 (Menveo) 08/22/2011 MMR 12/22/2000, 04/18/2005 MMR (Generic) 12/22/2000, 04/15/2005 Menactra 04/19/2017 Meningcoccal Group B (Bexsero)(aka Meningitis) 04/19/2017, 08/02/2017 Meningococcal (Generic) 08/22/2011 Meningococcal B 04/19/2017, 08/02/2017 Meningococcal Vac A,C,Y,W-135 Sc 04/19/2017 PFIZER COVID-19 (ORIGINAL FORMULATION, PURPLE CAP) mRNA, LNP-S, PF, 30 MCG/0.3 ML DOSE 02/23/2021, 05/13/2021 Pneumococcal (Prevnar 7) 01/18/2000, 07/03/2000, 03/26/2001 Polio Ipv (Generic) 1999, 01/18/2000, 03/26/2001, 04/18/2005 Polio Opv (Generic) 04/18/2005 Tdap (Generic) 05/01/2013 Varicella Vaccine 12/22/2000 Current Outpatient Medications Medication Sig Dispense Refill ALPRAZolam (XANAX) 0.25 MG tablet Take 1 tablet (0.25 mg total) by mouth nightly as needed for Sleep. 30 tablet 0 metoprolol succinate ER (TOPROL-XL) 100 MG 24 hr tablet Take 1 tablet (100 mg total) by mouth daily. 90 tablet 1 Norgestimate-Ethinyl Estradiol (ORTHO TRI-CYCLEN LO) 0.18/0.215/0.25 MG-25 MCG tablet Take 1 tabletby mouth daily. 28 tablet 5 sertraline (ZOLOFT) 50 MG tablet Take 1 tablet (50 mg total) by mouth daily. No current facility-administered medications for this visit. Review of patient's allergies indicates: Allergen Reactions Apple Juice Nausea and Vomiting Tilactase Other (see comment) vomiting--drinds small amounts without problems Objective: Vitals: 05/04/23 1405 BP: (!) 142/96 Pulse: 87 Resp: Temp: SpO2: Body mass index is 49.59 kg/m??. Physical Exam Constitutional: Appearance: Normal appearance. Cardiovascular: Rate and Rhythm: Normal rate and regular rhythm. Heart sounds: Normal heart sounds. Pulmonary: Effort: Pulmonary effort is normal. Breath sounds: Normal breath sounds. Neurological: Mental Status: She is alert. Psychiatric: Mood and Affect: Mood and affect normal. Assessment/Plan: 1. Palpitations - metoprolol succinate ER (TOPROL-XL) 100 MG 24 hr tablet; Take 1 tablet (100 mg total) by mouth daily. Dispense: 90 tablet; Refill: 1 2. Primary hypertension - metoprolol succinate ER (TOPROL-XL) 100 MG 24 hr tablet; Take 1 tablet (100 mg total) by mouth daily. Dispense: 90 tablet; Refill: 1 3. Screening for diabetes mellitus (DM) - HEMOGLOBIN, GLYCOSYLATED; Future 4. Screening for thyroid disorder - TSH W/REFLEX; Future 5. Screening, anemia, deficiency, iron - CBC W/DIFF AUTOMATED; Future 6. Screening, lipid - COMPREHENSIVE METABOLIC PANEL; Future - LIPID PANEL; Future 7. Encounter for vitamin deficiency screening - VITAMIN D, 25 OH; Future 8. Encounter for other contraceptive management - Norgestimate-Ethinyl Estradiol (ORTHO TRI-CYCLEN LO) 0.18/0.215/0.25 MG-25 MCG tablet; Take 1 tablet by mouth daily. Dispense: 28 tablet; Refill: 5 Will increase metoprolol, she will check bp daily and report next week with readings. Discussed diet and exercise and weight loss. She will return in June for HM visit. Labs ordered to be done before that visit. I personally spent a total of 30 minutes on the day of the encounter. This includes [id number] and [id number]-face time I provided on the day of the encounter & excludes time spent performing separately reportable services. TANA TERRY NP documented in this encounter Plan of Treatment Not on file documented as of this encounter Visit Diagnoses Diagnosis Primary hypertension- Primary Unspecified essential hypertension Palpitations Screening for diabetes mellitus (DM) Screening for diabetes mellitus Screening for thyroid disorder Screening, anemia, deficiency, iron Screening for iron deficiency anemia Screening, lipid Screening for lipoid disorders Encounter for vitamin deficiency screening Screening for other and unspecified endocrine, nutritional, metabolic, and immunity disorders Encounter for other contraceptive management documented in this encounter Additional Health Concerns Assessment Noted Time PHQ-9 Depression Total Score: 11 022 11:44 AM CDT documented as of this encounter Care Teams Electro Mechanic Relationship Specialty Start Date End Date Albert Ruby MD [address] [place] [address] [address] [place] [address] PCP - General FAMILY PRACTICE 05/16/18 Tremayne Shi MD [facility]. [address] [place] [address] EP Water Chemist CARDIOVASCULAR DISEASE 08/15/18 documented as of this encounter
--- OUTSIDE RECORDS SUMMARY | 2024-08-27 04:44 | XMS_ITS | Encounter Summary ---
Author Organization [facility] Address [address] [place] [address]. [place], [place] [id number] [place] [address] Care Team Providers Care Paper Cone Maker Name Role Phone Albert Ruby MD Primary Care Provider [phone] Tremayne Shi MD Unavailable [phone] Encounter Details Date Type Department Care Team (Late st Contact Info) Description 05/23/2023 OBMedicalt Message Enc [facility] Medical Group Family and Sports Medicine - [place] [address] [place] [address] Tana Dennison, CERTIFIED PEER SPECIALIST [address] [place] [address] Blood pressures Social History Tobacco Use Types Packs/Day Years [...] documented as of this encounter Care Teams Paper Cone Maker Relationship Specialty Start Date End Date Albert Ruby MD [address] [facility] [address] [place], [place] [phone] PCP - General FAMILY PRACTICE 05/16/18 Tremayne Shi MD [facility]. [address] [facility], [place] [id number] EP Material Control Associate CARDIOVASCULAR DISEASE 08/15/18 documented as of this encounter
--- OUTSIDE RECORDS SUMMARY | 2024-08-27 04:44 | XMS_ITS | Encounter Summary ---
Author Organization [facility] Address [address] [place] [address]. [place], [place] [address] [place] [address] Care Team Providers Care Dinker Name Role Phone Albert Ruby MD Primary Care Provider [phone] Tremayne Shi MD Unavailable [phone] Reason for Referral * Imaging (Routine) - Closed Specialty Diagnoses / Procedures Referred By Ines borja Referred To Contact RADIOLOGY Diagnoses RUQ pain Diarrhea, unspecified type LUQ pain Chronic GERD Procedures CT ABD W CON Marin Araujo NP [address] [facility] [address] [place] [address] Phone: tel: fax: Referral ID Status Reason Start Date Expiration Date Visits Re quested Visits Authorized [id number] Closed 10/05/2023 10/05/2024 1 1 RIALS ENGINEERING TECHNICIAN Reason for Visit * Reason Comments New Patient Consult For Colonoscopy Referral colon s creening (abdominal pain ) * Consultation (Routine) - Closed Specialty Diagnoses / Procedures Referred By Ines borja Referred To Contact GASTROENTEROLOGY Diagnoses Gastroesophageal reflux disease without esophagitis Albert Ruby MD [address] [place] [address] [address] [place] [address] Phone: tel: fax: [facility] Multispecialty Care - [facility] 3 [facility], [address] [facility] [place] [address] Phone: tel: fax: Referral ID Status Reason Start Date Expiration Date Visits Re quested Visits Authorized [id number] Closed 06/09/2023 06/09/2024 99 99 Encounter Details Date Type Department Care Team (Latest Contact Info) Description 10/05/2023 1:00 PM MATERIALS ENGINEERING TECHNICIAN Office Visit [facility] Multispecialty Care - [facility] [address] [place] [address] Albert Ruby MD [address] [place], [place] [address] [address] [place] [address] Marin Araujo NP 3 [facility] [address] [place] [address] New Patient; Consult For Colonoscopy (Referral colon screening (abdominal pain )) Social History Tobacco Use Types Packs/Day Years [...] Sign Reading Time Taken Comments Blood Pressure 121/66 10/05/2023 1:04 PM MATERIALS ENGINEERING TECHNICIAN Pulse 88 10/05/2023 1:04 PM MATERIALS ENGINEERING TECHNICIAN Temperature 36.3 ??C (97.3 ??F) 10/05/2023 1:04 PM CS T Respiratory Rate 18 10/05/2023 1:04 PM MATERIALS ENGINEERING TECHNICIAN Oxygen Saturation 96% 10/05/2023 1:04 PM MATERIALS ENGINEERING TECHNICIAN Inhaled Oxygen Concentration - - Weight 135.6 kg (299 lb) 10/05/2023 1:04 PM MATERIALS ENGINEERING TECHNICIAN Height 165.1 cm (5' 5 ) 10/05/2023 1:04 PM MATERIALS ENGINEERING TECHNICIAN Body Mass Index 49.76 10/05/2023 1:04 PM MATERIALS ENGINEERING TECHNICIAN documented in this encounter Patient Instructions * Attachments The following attachments cannot be sent through Care Everywhere. * Gallbladder Diet (Cymro) documented in this encounter Progress Notes * Marin Araujo, MINE ENGINEERING MANAGER - 10/05/2023 1:00 PM CST Images from the original note were not included. GASTROENTEROLOGY CONSULT 10/05/2023 4:31 PM Reason for Visit: New Patient and Consult For Colonoscopy (Referral colon screening (abdominal pain)) History of Present Illness: Laura Finley is a 23-year-old female who presents today for evaluation of GERD symptoms. Referral placed by PCP Dr. Ruby. Reports chronic GERD managed on antacids since she was an . Is currently prescribed Esomeprazole 40 mg daily [...] h/o SVT controlled with metoprolol Past Medical History: Diagnosis Date Anxiety Asthma [...] Topics Alcohol use: No Drug use: No Outpatient Medications Marked as Taking for the 10/05/23 encounter (Office Visit) with Marin Araujo NP Medication Sig Dispense Refill ALPRAZolam [...] is in agreement to proceed as planned. Orders placed this encounter: Orders Placed This Encounter CT ABD W CON cholestyramine (QUESTRAN) 4 G packet Na sulfate-K sulfate-Mg sulfate (SUPREP BOWEL PREP KIT) 17.5-3.13-1.6 GM/177ML Solution Marin Araujo NP Gastroenterology RIALS ENGINEERING TECHNICIAN documented in this encounter Plan of Treatment Not on file documented as of this encounter Results * CT ABD W CON (10/16/2023 8:32 AM MATERIALS ENGINEERING TECHNICIAN) Anatomical Region Laterality Modality Abdomen Computed Tomogra phy 10/19/2023 9:29 AM MATERIALS ENGINEERING TECHNICIAN Impressions 10/19/2023 9:57 AM MATERIALS ENGINEERING TECHNICIAN =====IMPRESSION:===== 1. Small sliding hiatal hernia. 2. No acute or other significant localizing abdominal process/findings seen to provide a potential explanation for the patient's symptoms. Ordered By: MARIN ARAUJO Interpreted By: Michelle Sifuentes MD, 10/19/2023 9:29 AM Narrative 10/19/2023 9:57 AM MATERIALS ENGINEERING TECHNICIAN Exam: CT abdomen with contrast Exam Date/Time: [...] Sifuentes MD, 10/19/2023 9:29 AM Marin Araujo MINE ENGINEERING MANAGER CT Final Resul t documented in this encounter Visit Diagnoses Diagnosis RUQ pain- Primary Abdominal pain, right upper quadrant LUQ pain Abdominal pain, left upper quadrant Diarrhea, unspecified type Chronic GERD RUQ pain Abdominal pain, right upper quadrant Diarrhea, unspecified type LUQ pain Abdominal pain, left upper quadrant Chronic GERD documented in this encounter Additional Health Concerns Assessment Noted Time PHQ-9 Depression Total Score: 4 07/07/20 23 8:53 AM CDT documented as of this encounter Care Teams Dinker Relationship Specialty Start Date End Date Albert Ruby MD [address] [place] [address] PCP - General FAMILY PRACTICE 05/16/18 Tremayne Shi MD Three [facility]. [address] [id number] EP Director Digital Strategy CARDIOVASCULAR DISEASE 08/15/18 documented as of this encounter
--- OUTSIDE RECORDS SUMMARY | 2024-08-27 04:44 | XMS_ITS | Encounter Summary ---
Author Organization [facility] Address [address] [place] [address]. [place], [place] [address] [place], [place] [address] Care Team Providers Care Fuel Cell Engineer Name Role Phone Albert Ruby MD Primary Care Provider [phone] Tremayne Shi MD Unavailable [phone] Reason for Referral * Surgical (Routine) - Closed Specialty Diagnoses / Procedures Referred By Contanahy t Referred To Contact GENERAL SURGERY Diagnoses Obesity due to excess calories, unspecified classification, unspecified whether serious comorbidity present Procedures OFFICE/OUTPATIENT NEW LOW MDM 30-44 MINUTES OFFICE/OUTPT VISIT,NEW,LEVL IV OFFICE/OUTPT VISIT,NEW,LEVL V OFFICE/OUTPT VISIT,EST,LEVL III OFFICE/OUTPT VISIT,EST,LEVL IV OFFICE/OUTPT VISIT,EST,LEVL V Albert Ruby MD [address] [place] [address] Phone: tel: fax: Adolph Porter MD [address] [place] [address] [address] [place] [address] Phone: tel: fax: Referral ID Status Reason Start Date Expiration Date V isits Requested Visits Authorized [id number] Closed Specialty Services 11/07/2023 11/07/2024 100 100 Scheduling Instructions Adolph Porter MD [facility]. MOGRAPH OPERATOR Reason for Visit * Reason Onset Date Comments Referral 11/07/2023 Encounter Details Date Type Department Care Team (Late st Contact Info) Description 11/07/2023 MyChart Message Enc [facility] Medical Group Family and Sports Medicine - [place] [address] [place] [address] Albert Ruby MD [address] [facility] 200 [place] [address] Weight loss doctor referral request Social History Tobacco Use Types Packs/Day Years [...] as of this encounter Progress Notes * ANDREW Mccarthy - 11/07/2023 2:27 PM CSTFrom: Laura Finley To: Dr. Albert Ruby Sent: 11/07/2023 2:20 PM SEISMOGRAPH OPERATOR Subject: Weight loss doctor referral request I would like a referral to Adolph Porter MD [facility] weight loss doctor at [facility]. Thanks! MOGRAPH OPERATOR documented in this encounter Plan of Treatment Scheduled Referrals Name Type Priority Associated Diagnoses Orde r Schedule Ambulatory Referral to Bariatric Surgery Referral Routine Obesity due to excess calories, unspecified classification, unspecified whether serious comorbidity present Ordered: 11/07/2023 documented as of this encounter Visit Diagnoses Diagnosis Obesity due to excess calories, unspecified classification, unspecified whether serious comorbidity present- Primary documented in this encounter Additional Health Concerns Assessment Noted Time PHQ-9 Depression Total Score: 4 07/07/20 23 8:53 AM CDT documented as of this encounter Care Teams Fuel Cell Engineer Relationship Specialty Start Date End Date Albert Ruby MD [address] [place] [address] [address] [place] [address] PCP - General FAMILY PRACTICE 05/16/18 Tremayne Shi MD [facility]. [facility] [address] [place] [address] EP Spray Booth Operator CARDIOVASCULAR DISEASE 08/15/18 documented as of this encounter
--- OUTSIDE RECORDS SUMMARY | 2024-08-27 04:44 | XMS_ITS | Encounter Summary ---
Author Organization [facility] Address [address] [place] [address]. [place] [address] [place] [address] Care Team Providers Care School Traffic Guard Name Role Phone Albert Brown MD Primary Care Provider [phone] Tremayne Shi MD Unavailable [phone] Reason for Visit * Reason Onset Date Comments Medication 05/09/2024 Encounter Details Date Type Department Care Team (Late st Contact Info) Description 05/09/2024 Telephone [facility] Medical [facility] Family and Sports Medicine - [place] [address] [place] [address] Albert Brown MD 670 [facility] 200 [place] [address] Medication Social History Tobacco Use Types Packs/Day [...] as of this encounter Progress Notes * Tory Asif CMA - 05/09/2024 3:20 PM CDTAddended by: TORY ASIF on: 05/09/2024 03:20 PM Modules accepted: Orders * MARCELLUS Esquivel - 05/09/2024 2:14 PM CDT Refill Request Laura Finley a patient of ALBERT BROWN MD requests semaglutide (OZEMPIC) 2 MG/3ML injection(PEN) The patient would like this sent to the following pharmacy: [facility] [phone] The next office visit: Next visit with ALBERT BROWN in FAMILY PRACTICE is on: 06/05/2024 in [facility] The last office visit: Last visit with ALBERT BROWN in FAMILY PRACTICE was on: 05/01/2024 in [facility] documented in this encounter Plan of Treatment Not on file documented as of this encounter Visit Diagnoses Diagnosis Obesity, diabetes, and hypertension syndrome ([facility]/HCC) Type II or unspecified type diabetes mellitus without mention of complication, not stated as uncontrolled Prediabetes Other abnormal glucose Morbid obesity with BMI of 50.0-59.9, adult ([facility] HHS/HCC) Morbid obesity documented in this encounter Additional Health Concerns Assessment Noted Time PHQ-9 Depression Total Score: 3 05/01/20 24 9:25 AM CDT documented as of this encounter Care Teams School Traffic Guard Relationship Specialty Start Date End Date Albert Brown MD [address] [place] [address] [address] [place] [address] PCP - General FAMILY PRACTICE 05/16/18 Tremayne Shi MD [facility]. [address] [place] [address] EP Sack Sewer CARDIOVASCULAR DISEASE 08/15/18 documented as of this encounter
--- OUTSIDE RECORDS SUMMARY | 2024-08-27 04:44 | XMS_ITS | Encounter Summary ---
Author Organization [facility] Address [address] [place] [address]. [place], [place] [address] [place] [address] Care Team Providers Care Fig Bar Machine Operator Name Role Phone Albert Ruby MD Primary Care Provider [phone] Tremayne Shi MD Unavailable [phone] Encounter Details Date Type Department Care Team (Latest Contact Info) Description 08/11/2023 Travel Social History Tobacco Use Types Packs/Day [...] documented as of this encounter Care Teams Fig Bar Machine Operator Relationship Specialty Start Date End Date Albert Ruby MD [address] [facility] 200 [place] [address] PCP - General FAMILY PRACTICE 05/16/18 Tremayne Shi MD [address] [place] [address] EP Mobile Application Developer CARDIOVASCULAR DISEASE 08/15/18 documented as of this encounter
--- OUTSIDE RECORDS SUMMARY | 2024-08-27 04:44 | XMS_ITS | Encounter Summary ---
Author Organization [facility] Address [address] [place] [address]. [place], [place] [address] [place] [address] Care Team Providers Care Laundry Assistant Name Role Phone Albert Ruby MD Primary Care Provider [phone] Tremayne Shi MD Unavailable [phone] Encounter Details Date Type Department Care Team (Latest Contact Info) Description 07/07/2023 Travel Social History Tobacco Use Types Packs/Day [...] documented as of this encounter Care Teams Laundry Assistant Relationship Specialty Start Date End Date Albert Ruby MD [address] [facility] 200 [place] [address] PCP - General FAMILY PRACTICE 05/16/18 Tremayne Shi MD [address] [place] [address] EP Social Media Strategist CARDIOVASCULAR DISEASE 08/15/18 documented as of this encounter
--- OUTSIDE RECORDS SUMMARY | 2024-08-27 04:44 | XMS_ITS | Encounter Summary ---
Author Organization [facility] Address Critical access hospital6 [facility]. [place], [place] [address] [place] [address] Care Team Providers Care Software Integration Developer Name Role Phone Albert Ruby MD Primary Care Provider [phone] Tremayne Shi MD Unavailable Reason for Referral * Surgical (Routine) - New Request Specialty Diagnoses / Procedures Referred By Ines borja Referred To Contact Diagnoses RUQ pain Diarrhea, unspecified type Chronic GERD Procedures Case request operating room: COLONOSCOPY, EGD Velasquez Shipman DO #[address] [facility] [address] [place] [address] Phone: tel: fax: Referral ID Status Reason Start Date Expiration Date V isits Requested Visits Authorized [id number] New Request 10/06/2023 10/06/2024 1 1 R MACHINE ATTENDANT Encounter Details Date Type Department Care Team (Late st Contact Info) Description 10/06/2023 Orders Only [facility] Medical Group Multispecialty Care - [facility] [address] [facility] [address] [place] [address] Velasquez Shipman DO [address] [facility] [address] [place] [address] Social History Tobacco Use Types Packs/Day Years [...] as of this encounter Plan of Treatment Scheduled Orders Name Type Priority Associated Diagnoses Orde r Schedule Case request operating room: COLONOSCOPY, EGD Case Request Routine RUQ pain Diarrhea, unspecified type Chronic GERD Ordered: 10/06/2023 documented as of this encounter Visit Diagnoses Diagnosis RUQ pain- Primary Abdominal pain, right upper quadrant Diarrhea, unspecified type Chronic GERD documented in this encounter Additional Health Concerns Assessment Noted Time PHQ-9 Depression Total Score: 4 07/07/20 23 8:53 AM CDT documented as of this encounter Care Teams Software Integration Developer Relationship Specialty Start Date End Date Albert Ruby MD [address] [place] [address] [address] [place] [address] PCP - General FAMILY PRACTICE 05/16/18 Tremayne Shi MD [facility]. [address] [place] [address] EP Network Operations Manager CARDIOVASCULAR DISEASE 08/15/18 documented as of this encounter
--- OUTSIDE RECORDS SUMMARY | 2024-08-27 04:44 | XMS_ITS | Encounter Summary ---
Author Organization [facility] Address [address] [place] [address]. [place], [place] [address] [place] [address] Care Team Providers Care Offset Plate Preparation Supervisor Name Role Phone Albert Ruby MD Primary Care Provider [phone] Tremayne Shi MD Unavailable [phone] Reason for Visit * Reason Comments Image (SCAN) Encounter Details Date Type Department Care Team (Latest Contact Info) Description 05/03/2023 Scan HEALTH INFO [facility] Scanned, Doc Med Group Image (SCAN) Social History Tobacco Use Types Packs/Day Years [...] Procedure Name Priority Date/Time Associated Diagnosis Comments IMAGE GENERIC 05/03/2023 documented in this encounter Results * IMAGE GENERIC (05/03/2023) Anatomical Region Laterality Modality Other 05/03/2023 us Doc Med Group Scanned SCANNING Final Resu lt documented in this encounter Visit Diagnoses Not on filedocumented in this encounter Additional Health Concerns Assessment Noted Time PHQ-9 Depression Total Score: 11 022 11:44 AM CDT documented as of this encounter Care Teams Offset Plate Preparation Supervisor Relationship Specialty Start Date End Date Albert Ruby MD [address] [facility] [address] [place], [place] [id number] PCP - General FAMILY PRACTICE 05/16/18 Tremayne Shi MD [address] [place], [place] [address] EP Orthopaedic Physician Assistant CARDIOVASCULAR DISEASE 08/15/18 documented as of this encounter
--- OUTSIDE RECORDS SUMMARY | 2024-08-27 04:44 | XMS_ITS | Encounter Summary ---
Author Organization [facility] Address [address] [place] [address]. [place] [address] Care Team Providers Care Asphalt Distributor Operator Name Role Phone Albert Ruby MD Primary Care Provider [phone] Tremayne Shi MD Unavailable [phone] Encounter Details Date Type Department Care Team (Latest Contact Info) Description 05/04/2023 Travel Social History Tobacco Use Types Packs/Day [...] documented as of this encounter Care Teams Asphalt Distributor Operator Relationship Specialty Start Date End Date Albert Ruby MD [address] [place] [address] PCP - General FAMILY PRACTICE 05/16/18 Tremayne Shi MD [address] [facility] [address] [place], [place] [id number] EP Paint And Table Edger CARDIOVASCULAR DISEASE 08/15/18 documented as of this encounter
--- OUTSIDE RECORDS SUMMARY | 2024-08-27 04:44 | XMS_ITS | Encounter Summary ---
Author Organization [facility] Address [address] [place] [address]. [place], [place] [address] [place] [address] Care Team Providers Care Trade Recruiter Name Role Phone Albert Ruby MD Primary Care Provider [phone] Tremayne Shi MD Unavailable [phone] Reason for Referral * Consultation (Routine) - Pending Review Specialty Diagnoses / Procedures Referred By Ines borja Referred To Contact OTOLARYNGOLOGY Diagnoses Snoring Procedures OFFICE/OUTPATIENT NEW LOW MDM 30-44 MINUTES OFFICE/OUTPT VISIT,NEW,LEVL IV OFFICE/OUTPT VISIT,NEW,LEVL V OFFICE/OUTPT VISIT,EST,LEVL III OFFICE/OUTPT VISIT,EST,LEVL IV OFFICE/OUTPT VISIT,EST,LEVL V Albert Ruby MD [address] [place] [address] Phone: tel: fax: [facility], [address] [address] Phone: tel: fax: Referral ID Status Reason Start Date Expiration Date V isits Requested Visits Authorized [id number] Pending Review 11/15/2023 12/14/2024 99 99 Scheduling Instructions Evaluate for sleep study EAR DESIGN ENGINEER Reason for Visit * Reason Onset Date Comments Referral 11/15/2023 Encounter Details Date Type Department Care Team (Late st Contact Info) Description 11/15/2023 MyChart Message Enc [facility] Medical Group Family and Sports Medicine - [place] [address] [place] [address] Albert Ruby MD [address] [facility] [address] [place] [address] Sleep study Social History Tobacco Use Types Packs/Day Years [...] encounter Progress Notes * ANDREW Mccarthy - 11/15/2023 1:05 PM CSTAddended by: LILLY BROWNING on: 11/15/2023 01:05 PM Modules accepted: Orders EAR DESIGN ENGINEER * ANDREW Mccarthy - 11/15/2023 12:59 PM CSTFrom: Laura Finley To: Dr. Albert Ruby Sent: 11/15/2023 12:44 PM NUCLEAR DESIGN ENGINEER Subject: Sleep study Hello, I had an egd and they stated I had significant bouts of apnea and suggested I get a sleep study referral. EAR DESIGN ENGINEER documented in this encounter Plan of Treatment Scheduled Referrals Name Type Priority Associated Diagnoses Orde r Schedule Ambulatory referral to ENT Referral Routine Snoring Ordered: 11/15/2023 documented as of this encounter Visit Diagnoses Diagnosis Snoring- Primary Other dyspnea and respiratory abnormality documented in this encounter Additional Health Concerns Assessment Noted Time PHQ-9 Depression Total Score: 4 07/07/20 23 8:53 AM CDT documented as of this encounter Care Teams Trade Recruiter Relationship Specialty Start Date End Date Albert Ruby MD [address] [facility] [address] [place] [address] PCP - General FAMILY PRACTICE 05/16/18 Tremayne Shi MD [facility]. [address] [place], [place] [id number] EP Air Tube Releaser CARDIOVASCULAR DISEASE 08/15/18 documented as of this encounter
--- OUTSIDE RECORDS SUMMARY | 2024-08-27 04:44 | XMS_ITS | Encounter Summary ---
Author Organization [facility] Address [address] [place] [address]. [place], [place] [id number] [place] [address] Care Team Providers Care Bobbin Loose End Finder Name Role Phone Albert Ruby MD Primary Care Provider [phone] Tremayne Shi MD Unavailable [phone] Reason for Visit * Reason Comments Follow Up Bp has been elevated Encounter Details Date Type Department Care Team (Late st Contact Info) Description 05/01/2024 9:20 AM CDT Office Visit [facility] - [place] [address] [place] [address] Albert Ruby MD [address] [address] Follow Up (Bp has been elevated) Social History Tobacco Use Types Packs/Day Years [...] Mass Index 51.84 05/01/2024 9:23 AM CDT documented in this encounter Progress Notes * Albert Ruby MD - 05/01/2024 9:20 AM CDT Images from the original note were not included. [facility] [place] [facility] [place] Encounter Date: 05/01/2024 Reason for Visit: Daniel is an 23-year-old female here for Follow Up (Bp has been elevated) History of Present Illness: SUBJECTIVE: Daniel Finley is a 23-year-old female who is here for a f/u. Over all doing well, takes medications regularly, no side effects. Patient Care Team: Albert Ruby MD as PCP - General (FAMILY PRACTICE) Tremayne Shi MD as EP Sterile Processing Manager (CARDIOVASCULAR DISEASE) Health Maintenance Topic Date Due Cervical Cancer Screening 08/11/2024 (Originally 1999) DTaP, Tdap and Td Vaccines (7 - Td or Tdap) 08/11/2024 (Originally 05/01/2023) COVID-19 Vaccine (3 - 2022-24 season) 2112 (Originally 05/12/2023) Annual Physical 07/07/2024 HPV Vaccines Completed Meningococcal Vaccine Completed Hepatitis C Completed Pneumococcal Vaccine: Pediatrics (0 to 5 Years) and At-Risk Patients (6 to 64 Years) Aged Out RSV Immunizations Under 20 Months Aged Out Active Problems: Patient Active Problem List Diagnosis Syncope Palpitations Tachycardia Achrochordon Allergic rhinitis Anxiety Insomnia Migraine Obesity PMS (premenstrual syndrome) Restless legs syndrome (RLS) Gall bladder disease Gastroesophageal reflux disease without esophagitis RUQ pain Diarrhea, unspecified type Chronic GERD Medical History: Past Medical History: Diagnosis Date Anxiety Asthma (HHS/HCC) Depression GERD (gastroesophageal reflux disease) HTN (hypertension) Migraine NAFLD (nonalcoholic fatty liver disease) Surgical History: Past Surgical History: Procedure Laterality Date ANKLE FRACTURE SURGERY COLONOSCOPY N/A 11/15/2023 COLONOSCOPY with large cold forcep random biopsies performed by Velasquez Shipman DO at [facility] COLONOSCOPY STOMA DX INCLUDING COLLJ SPEC SPX FRACTURE SURGERY 06/2013 R ankle Past Surgical History: Procedure Laterality Date ANKLE FRACTURE SURGERY COLONOSCOPY N/A 11/15/2023 COLONOSCOPY with large cold forcep random biopsies performed by Velasquez Shipman DO at [facility] COLONOSCOPY STOMA DX INCLUDING COLLJ SPEC SPX FRACTURE SURGERY 06/2013 R ankle Family History: [...] status: Single Occupational History Employer: [employer]UD[employer] Social History: Social History Socioeconomic History Marital status: Single Occupational History Employer: [employer]UD[employer] Tobacco Use Smoking status: Never Passive exposure: Never Smokeless tobacco: Never Vaping Use Vaping status: Never Used Substance and Sexual Activity Alcohol use: No Drug use: No Sexual activity: Not Currently Partners: Male control/protection: OCP Other Topics Concern Exercise Yes Special Diet No Caffeine Concern No Medications: Current Outpatient Medications: esomeprazole (NEXIUM) 40 MG capsule, Take 1 capsule (40 mg total) by mouth every morning before breakfast., Disp: , Rfl: folic acid (FOLVITE) 1 MG tablet, Take 1 tablet (1 mg total) by mouth daily., Disp: 90 tablet, Rfl:3 hydroCHLOROthiazide (MICROZIDE) 12.5 MG capsule, Take 1-2 capsules (12.5-25 mg total) by mouth every morning., Disp: 180 capsule, Rfl: 3 metoprolol succinate ER (TOPROL-XL) 100 MG 24 hr tablet, Take 1 tablet by mouth once daily, Disp: 30 tablet, Rfl: 0 NEXPLANON 68 MG SC implant, , Disp: , Rfl: semaglutide (OZEMPIC) 2 MG/3ML injection (PEN), Inject 0.25 mg into the skin every 7 days. Indications: Diabetes, Disp: 1 Pen, Rfl: 0 sertraline (ZOLOFT) 50 MG tablet, Take 1 tablet (50 mg total) by mouth daily., Disp: 90 tablet, Rfl: 3 vitamin D2, ergocalciferol, (DRISDOL) 1.25 mg capsule, Take 1 capsule (50,000 Units total) by mouthevery 7 days., Disp: 12 capsule, Rfl: 3 Allergies: Review of patient's allergies indicates: Allergen Reactions Apple Vomiting Vitals: Filed Vitals: 05/01/24 0923 BP: (!) 148/85 Pulse: 80 Resp: 16 Temp: 98.1 ??F (36.7 ??C) SpO2: 98% Weight: (!) 137 kg (302 lb) Height: 1.626 m (5' 4 ) Body mass index is 51.84 kg/m??. BMI Readings from Last 5 Encounters: 05/01/24 51.84 kg/m?? 11/02/23 51.15 kg/m?? 10/05/23 49.76 kg/m?? 08/11/23 50.26 kg/m?? 07/07/23 49.59 kg/m?? Wt Readings from Last 3 Encounters: 05/01/24 (!) 137 kg (302 lb) 11/02/23 135.2 kg (298 lb) 10/05/23 135.6 kg (299 lb) ROS: Review of Systems Constitutional: Negative [...] Patient is well-developed, Average weight and height General appearance in no apparent distress, well developed and well nourished, non-toxic, in no respiratory distress and acyanotic, alert, oriented to person, place, and time, afebrile, and normal vitals Comments: VSS HENT: Head: Normocephalic and atraumatic. [...] Imaging: Lab Results Component Value Date HGBA1C 5.7 (H) 04/25/2024 HGBA1C 5.1 06/21/2023 HGBA1C 5.0 11/13/2020 HGBA1C 5.5 04/24/2020 HGBA1C 5.2 05/24/2019 AST 17 04/25/2024 AST 12 06/21/2023 AST 16 11/13/2020 AST 16 04/10/2020 AST 8 (L) 05/24/2019 ALT 20 04/25/2024 ALT 12 06/21/2023 ALT 26 11/13/2020 ALT 29 04/10/2020 ALT 16 05/24/2019 CR 0.86 04/25/2024 CR 0.82 06/21/2023 CR 0.79 11/13/2020 CR 0.96 04/10/2020 CR 0.80 05/24/2019 GFREST 97 04/25/2024 GFREST 103 06/21/2023 TSH 1.82 04/25/2024 TSH 2.31 06/21/2023 TSH 1.082 11/13/2020 TSH 1.870 05/24/2019 [id number] 126 04/25/2024 FT4 1.4 04/25/2024 FT4 1.09 05/24/2019 CRP 42.3 (H) 04/25/2024 LDLC 62 11/13/2020 HDL 43 (L) 04/25/2024 HDL 60 06/21/2023 HDL 52 11/13/2020 WBC 12.7 (H) 04/25/2024 WBC 10.6 06/21/2023 WBC 14.6 (H) 11/13/2020 WBC 13.7 (H) 04/10/2020 WBC 10.3 05/24/2019 RBC 4.82 04/25/2024 RBC 4.77 06/21/2023 RBC 4.85 11/13/2020 RBC 4.89 04/10/2020 RBC 4.76 05/24/2019 TBIL 0.2 04/25/2024 TBIL 0.2 06/21/2023 TBIL 0.3 11/13/2020 TBIL 0.2 04/10/2020 TBIL 0.4 05/24/2019 Diagnoses/Impression: Encounter Diagnose(s) ICD-10-CM SNOMED CT(R) 1. Primary hypertension I10 ESSENTIAL HYPERTENSION hydroCHLOROthiazide (MICROZIDE) 12.5 MG capsule 2. Low folic acid E53.8 FOLIC ACID LEVEL - FINDING folic acid (FOLVITE) 1 MG tablet 3. Obesity, diabetes, and hypertension syndrome ([facility]) E11.69 METABOLIC DISEASE semaglutide (OZEMPIC) 2 MG/3ML injection (PEN) E66.9 E11.59 I15.2 4. Prediabetes R73.03 PREDIABETES semaglutide (OZEMPIC) 2 MG/3ML injection (PEN) 5. CRP elevated R79.82 C-REACTIVE PROTEIN ABOVE REFERENCE RANGE 6. Morbid obesity with BMI of 50.0-59.9, adult ([facility] HHS/HCC) E66.01 BODY MASS INDEX 40+ - SEVERELY OBESE semaglutide (OZEMPIC) 2 MG/3ML injection (PEN) Z68.43 Recommendations and Plan: 1. Low folic acid See above for labs, imaging and medications orders. After carefull analysis of presenting symptoms,exam results and co morbidities, we decided on the current plan of care per [facility]. I Discussed Medications and/or therapeutic measures in details. Explained the rational of diagnosis and treatment. Patient/adult caregiver understands and agrees with the treatment plan. - folic acid (FOLVITE) 1 MG tablet; Take 1 tablet (1 mg total) by mouth daily. Dispense: 90 tablet;Refill: 3 2. Obesity, diabetes, and hypertension syndrome ([facility]) 3. Prediabetes Daniel Finley is a 23-year-old female who presents with controlled Diabetes and will need to keep their blood sugar level, cholesterol level and and BP at goal for their specific risk category, typically the LDL should be below 100 if no risk factors and/or co morbidities, and HDL > 40 mg/dl. hsCRP testing and management of endothelial inflammation is extremely important with drugs such as colchicine or SGLT2. Elevated LDL and CRP levels increases risks for heart attack and stroke.They will need to work on daily exercise Minimum of 150 minutes per week over at least 3 days and dieting to lose weight if above a BMI of 25. Diet should be rich in vegetables, fruits and whole grains. Recommend low carb and/or Mediteranean diet low fat dairy, poultry, fish, legumes, nuts and non-tropical vegetable oils, limit carbohydrates and red meat. They will also need to take any prescribed medications as ordered. Currently, patient is on: Metformin Yes. DPP-4 inhibitors (gliptins): No. SGLT2 inhibitors: No. GLP1: Yes. Insulin: No. Change in medication per [facility] if applicable. They should report to our nurse if they have any problems or concerns. Check labs as ordered Follow up in 3-6 months Current medications offer good relief of symptoms.Side effects reported: No. Patient/guardian understands and agrees with the treatment plan. - semaglutide (OZEMPIC) 2 MG/3ML injection (PEN); Inject 0.25 mg into the skin every 7 days. Indications: Diabetes Dispense: 1 Pen; Refill: 0 4. CRP elevated See above for labs, imaging and medications orders. Stable, labs and medications reviewed and discussed in details. Patient understands and agrees with current treatment and follow up protocol. No acute symptoms today, continue current care. 5. Morbid obesity with BMI of 50.0-59.9, adult ([facility]) Pt has elevated weight with BMI Body mass index is 51.84 kg/m??., and will need to work hard on reducing carbohydrates and total calories. They should also work on reducing their total portion sizes to try to reduce the size of their stomach. They should be exercising about 30 minutes every day with cardio work outs. They should strive to avoid regular soda, juices and alcohol. I aim to have themlose about 1 pound per week and 5 pounds per month. I have advised Daniel to stop eating when full, follow healthy eating, avoid going hungry, avoid skipping meals, avoid grazing between meals, avoid sugary drinks, avoid alcohol, avoid transfats, increase exercise, decrease portion sizes, meal plan, and avoid eating out and fast food. Dysmetabolic Syndrome: This is a pre-diabetic state and needs to be treated much the same as diabetes. Diet will need to be low in carbohydrates and they will also need to work on regular/daily exercise. Goals are to raise the HDL, lower the triglycerides and fasting blood sugar. They will also work on weight loss to reduce the size of their waist. Discussed the fact that impaired fasting glucose is a risk factor for developing DM2. 1 in 3 adultswith impaired fasting glucose will develop DM2. Reviewed treatment strategies to include lifestyle changes focusing on increased cardiovascular exercise (at least 30-60 min 4-5 days/week) in additionto improved diet (cutting back on carbs/fats/starches) with goal of weight reduction. Other treatment strategies including Metformin medication. Will start with lifestyle changes and have patient f/uin 3 months for re-evaluation. Follow up 1 month - semaglutide (OZEMPIC) 2 MG/3ML injection (PEN); Inject 0.25 mg into the skin every 7 days. Indications: Diabetes Dispense: 1 Pen; Refill: 0 6. Primary hypertension Daniel Finley is a 23-year-old female who presents with uncontrolled HTN and will need to keep their BP at goal for their specific risk category, typically the BP should be below 130/80 and medication will be increased if above 140/90. HTN increases risks for heart attack and stroke as well as renal impairment. Uncontrolled HTN may cause vision changes and headache. They will need to work on daily exercise Minimum of 150 minutes per week over at least 3 days and dieting to lose weight if above a BMI of 25. Diet should be rich in vegetables, fruits and whole grains. Recommend DASH or Mediteranean diet low fat dairy, poultry, fish, legumes, nuts and non-tropical vegetable oils, limit sugar sweetened beverages and red meat. They will also need to reduce salt, increase dietary potassium and take any prescribed medications as ordered. They should report to our nurse if they have any problems with headache, blurry vision and/or lightheadedness. BP goal of < 140/90 expressed. Follow up 4 weeks. Recheck in 4 weeks, sooner should new symptoms or problems arise. - hydroCHLOROthiazide (MICROZIDE) 12.5 MG capsule; Take 1-2 capsules (12.5-25 mg total) by mouth every morning. Dispense: 180 capsule; Refill: 3 Counseled on diet and exercise techniques and [...] meat. . Will get labs as per [employer]. See orders for this visit as documented in the electronic medical record. I spent at least 40 minutes today reviewing the patient's medical record, obtaining history, performing an exam, ordering medications and/or tests, documenting in the medical record and counseling and educating the patient/family/caregiver who understands and agrees with the treatment plan. that isnot including any time spent performing separately reportable services such as procedures, injections, musculoskeletal manipulation, etc... Orders Placed This Encounter NEXPLANON 68 MG SC implant hydroCHLOROthiazide (MICROZIDE) 12.5 MG capsule folic acid (FOLVITE) 1 MG tablet semaglutide (OZEMPIC) 2 MG/3ML injection (PEN) Cannot display discharge medications since this is not an admission. Medications Discontinued During This Encounter Medication Reason ALPRAZolam (XANAX) 0.25 MG tablet cloNIDine (CATAPRES) 0.2 MG tablet cholestyramine (QUESTRAN) 4 G packet TRI-LO-NEENA 0.18/0.215/0.25 MG-25 MCG tablet documented in this encounter Plan of Treatment Not on file documented as of this encounter Visit Diagnoses Diagnosis Primary hypertension- Primary Unspecified essential hypertension Low folic acid Obesity, diabetes, and hypertension syndrome ([facility]) Type II or unspecified type diabetes mellitus without mention of complication, not stated as uncontrolled Prediabetes Other abnormal glucose CRP elevated Elevated C-reactive protein (CRP) Morbid obesity with BMI of 50.0-59.9, adult ([facility]) Morbid obesity documented in this encounter Additional Health Concerns Assessment Noted Time PHQ-9 Depression Total Score: 3 05/01/20 9:25 AM CDT documented as of this encounter Care Teams Bobbin Loose End Finder Relationship Specialty Start Date End Date Albert Ruby MD [address] [place] [address] [address] [facility], [place] [id number] PCP - General FAMILY PRACTICE 05/16/18 Tremayne Shi MD [facility]. [address] [place], [place] [id number] EP Sterile Processing Manager CARDIOVASCULAR DISEASE 08/15/18 documented as of this encounter
--- OUTSIDE RECORDS SUMMARY | 2024-08-27 04:44 | XMS_ITS | Encounter Summary ---
Author Organization [facility] Address [address] [place] [address]. [place], [place] [address] [place] [address] Care Team Providers Care Senior Technical Support Engineer Name Role Phone Albert Ruby MD Primary Care Provider [phone] Tremayne Shi MD Unavailable [phone] Encounter Details Date Type Department Care Team (Latest Contact Info) Description 11/02/2023 Travel Social History Tobacco Use Types Packs/Day [...] documented as of this encounter Care Teams Senior Technical Support Engineer Relationship Specialty Start Date End Date Albert Ruby MD [address] [facility] [address] [place] [address] PCP - General FAMILY PRACTICE 05/16/18 Tremayne Shi MD [id number] [place] [address] EP Patron Attendant CARDIOVASCULAR DISEASE 08/15/18 documented as of this encounter
--- OUTSIDE RECORDS SUMMARY | 2024-08-27 04:44 | XMS_ITS | Encounter Summary ---
Author Organization [facility] Address [address] [place] [address]. [place], [place] [id number] [place] [address] Care Team Providers Care Card Tender Name Role Phone Albert Ruby MD Primary Care Provider [phone] Tremayne Shi MD Unavailable [phone] Encounter Details Date Type Department Care Team (Latest Contact Info) Description 05/01/2024 Travel Social History Tobacco Use Types Packs/Day [...] documented as of this encounter Care Teams Card Tender Relationship Specialty Start Date End Date Albert Ruby MD [address] [facility] [address] [place] [address] PCP - General FAMILY PRACTICE 05/16/18 Tremayne Shi MD [address] [place] [address] EP Manager Solar CARDIOVASCULAR DISEASE 08/15/18 documented as of this encounter
--- OUTSIDE RECORDS SUMMARY | 2024-08-27 04:44 | XMS_ITS | Encounter Summary ---
Author Organization [facility] Address [address] [place] [address]. [place], [place] [address] [place] [address] Care Team Providers Care Chemical Lab Supervisor Name Role Phone Albert Brown MD Primary Care Provider [phone] Tremayne Shi MD Unavailable [phone] Reason for Visit * Reason Comments Physical Annual Physical Exam Encounter Details Date Type Department Care Team (Late st Contact Info) Description 07/07/2023 9:00 AM CDT Office Visit [facility] Family and Sports Medicine - [place] [address] [place] [address] Albert Brown MD [address] [facility] [address] [place] [address] Physical (Annual Physical Exam/) Social History Tobacco Use Types Packs/Day Years [...] Sign Reading Time Taken Comments Blood Pressure 137/94 07/07/2023 8:54 AM CDT Pulse 85 07/07/2023 8:54 AM CDT Temperature 36.7 ??C (98.1 ??F) 07/07/2023 8:54 AM CD T Respiratory Rate 16 07/07/2023 8:54 AM CDT Oxygen Saturation 98% 07/07/2023 8:54 AM CDT Inhaled Oxygen Concentration - - Weight 135.2 kg (298 lb) 07/07/2023 8:54 AM CDT Height 165.1 cm (5' 5 ) 07/07/2023 8:54 AM CDT Body Mass Index 49.59 07/07/2023 8:54 AM CDT documented in this encounter Progress Notes * Albert Brown MD - 07/07/2023 9:00 AM CDT Images from the original note were not included. Primary & Specialty Care [facility] Encounter Date: 07/07/2023 Reason for Visit: Annual Health Maintenance Exam Patient Care Team: Albert Brown MD as PCP - General (FAMILY PRACTICE) Tremayne Shi MD as EP [employer] Officer (CARDIOVASCULAR DISEASE) History of Present Illness: Laura Finley is a 22-year-old female here for the annual exam: Doing well currently without complaint or issue and wanting to get up to date on screening. She is pleasant and cooperative. Reported Health: good Immunizations up to date: Yes annual influenza up to date her last health maintenance visit was:1 year ago Regular dental visits twice a year: Yes Vision problems: No does not wear any glasses or contacts Hearing problems: No Lifestyle: Diet: no particular diet Exercise: no regular exercise program Walking 1 day per week Weight Concern: Yes Tobacco use: No Alcohol use: No, No alcohol at all Illicit Drug use: none FH of colon cancer: No Had a colonoscopy: No FH of breast cancer: Yes Ovarian but not Breast. Maternal great grand mother Had a Mammogram: No Review of Systems Constitutional: Negative for fever or chills. HENT: Negative for congestion or sore throat. Eyes: Negative for eye discomfort or blurred vision. Cardiovascular: Negative for chest pain or leg swelling. Respiratory: Negative for cough or shortness of breath. Endocrine: Negative for increased thirst or urination. Skin: Negative for itching or rash. Musculoskeletal: Negative for joint swelling or muscle cramps. Gastrointestinal: Negative for constipation or diarrhea. Genitourinary: Negative for bladder incontinence or dysuria. Neurological: Negative for limp weakness or dizziness. Psychiatric/Behavioral: Negative for hallucinations or memory loss. Patient Care Team: Albert Brown MD as PCP - General (FAMILY PRACTICE) Tremayne Shi MD as EP [employer] (CARDIOVASCULAR DISEASE) Medications: Current Outpatient Medications Medication [...] total) by mouth every morning before breakfast. sertraline (ZOLOFT) 50 MG tablet Take 1 tablet (50 mg total) by mouth daily. 90 tablet 3 metoprolol succinate ER (TOPROL-XL) 100 MG 24 hr tablet Take 1 tablet (100 mg total) by mouth daily. 90 tablet 1 Norgestimate-Ethinyl Estradiol (ORTHO TRI-CYCLEN LO) 0.18/0.215/0.25 MG-25 MCG tablet Take 1 tabletby mouth daily. 28 tablet 5 vitamin D2, ergocalciferol, (DRISDOL) 1.25 mg capsule Take 1 capsule (50,000 Units total) by mouth every 7 days. 12 capsule 3 No current facility-administered medications for this visit. Fall Risk No data to display PHQ2/9 Score Patient Health Questionnaire-2 Score: 0 Patient Health Questionnaire-9 Score: 4 Health Maintenance Topic Date Due Cervical Cancer Screening Never done Hepatitis C Never done DTaP, Tdap and Td Vaccines (7 - Td or Tdap) 05/01/2023 COVID-19 Vaccine (3 - 2022-24 season) 2023 Influenza Adult (1) 06/11/2023 Annual Physical 07/01/2023 RSV Immunization 60+ (1 - 1-dose 60+ series) 2059 HPV Vaccines Completed Meningococcal Vaccine Completed Pneumococcal Vaccine: Pediatrics (0 to 5 Years) and At-Risk Patients (6 to 64 Years) Aged Out History Past Medical History: Diagnosis [...] Never Substance Use Topics Alcohol use: No Reviewed and updated this visit by provider: Physical Exam Vitals and nursing note reviewed. Filed Vitals: 07/07/23 0854 BP: (!) 137/94 Pulse: 85 Resp: 16 Temp: 98.1 ??F (36.7 ??C) SpO2: 98% Weight: 135.2 kg (298 lb) Height: 1.651 m (5' 5 ) Body mass index is 49.59 kg/m??. Constitutional: General: Patient is not in acute [...] Normal range of motion and neck supple. No rigidity. No muscular tenderness. Skin: General: no rash appreciated in exposed skin Neurological: Mental Status: patient is alert and oriented. Psychiatric: Normal Mood and Affect. Pleasant and cooperative. Judgment normal. Lab Results Component Value Date HGBA1C 5.1 06/21/2023 HGBA1C 5.0 11/13/2020 HGBA1C 5.2 05/24/2019 CR 0.82 06/21/2023 CR 0.79 11/13/2020 CR 0.96 04/10/2020 CR 0.80 05/24/2019 GFREST 103 06/21/2023 TSH 2.31 06/21/2023 TSH 1.082 11/13/2020 TSH 1.870 05/24/2019 FT4 1.09 05/24/2019 LDLC 62 11/13/2020 HDL 60 06/21/2023 HDL 52 11/13/2020 HDL 71 05/24/2019 Diagnoses/Impression: Encounter Diagnose(s) ICD-10-CM SNOMED CT(R) 1. Primary insomnia F51.01 PRIMARY INSOMNIA cloNIDine (CATAPRES) 0.2 MG tablet C-REACTIVE PROTEIN HEPATITIS C ANTIBODY CBC W/DIFF AUTOMATED COMPREHENSIVE METABOLIC PANEL FOLIC ACID SERUM HEMOGLOBIN, GLYCOSYLATED LIPID PANEL THYROXINE, FREE (FT4) TRIIODOTHYRONINE TOTAL , TT-3 TSH W/REFLEX 2. Anxiety F41.9 ANXIETY ALPRAZolam (XANAX) 0.25 MG tablet sertraline (ZOLOFT) 50 MG tablet C-REACTIVE PROTEIN HEPATITIS C ANTIBODY CBC W/DIFF AUTOMATED COMPREHENSIVE METABOLIC PANEL FOLIC ACID SERUM HEMOGLOBIN, GLYCOSYLATED LIPID PANEL THYROXINE, FREE (FT4) TRIIODOTHYRONINE TOTAL , TT-3 TSH W/REFLEX 3. Annual physical exam Z00.00 PATIENT ENCOUNTER STATUS C-REACTIVE PROTEIN HEPATITIS C ANTIBODY CBC W/DIFF AUTOMATED COMPREHENSIVE METABOLIC PANEL FOLIC ACID SERUM HEMOGLOBIN, GLYCOSYLATED LIPID PANEL THYROXINE, FREE (FT4) TRIIODOTHYRONINE TOTAL , TT-3 TSH W/REFLEX Recommendations and Plan: 1. Anxiety Will have frequent check-ups. Effect of medication likely not to be seen for 4-6 weeks. The patientshould also consider counseling to talk through issues -- reviewed resources. Encouraged f/u in clinic in 6 Month(s). Review the rationale for treatment duration [...] for Sleep. Dispense: 30 tablet; Refill: 0 - sertraline (ZOLOFT) 50 MG tablet; Take 1 tablet (50 mg total) by mouth daily. Dispense: 90 tablet; Refill: 3 - C-REACTIVE PROTEIN; Future - HEPATITIS C ANTIBODY; Future - CBC W/DIFF AUTOMATED; Future - COMPREHENSIVE METABOLIC PANEL; Future - FOLIC ACID SERUM; Future - HEMOGLOBIN, GLYCOSYLATED; Future - LIPID PANEL; Future - THYROXINE, FREE (FT4); Future - TRIIODOTHYRONINE TOTAL , TT-3; Future - TSH W/REFLEX; Future 2. Primary insomnia Start Clonidine 2 mg qhs. F/u 4 weeks. May consider Amitriptyline for continuity of sleep. ReviewedSleep Hygiene Principles: 1. Pick one time for awakening daily, 2. no spending time in bed other than for sleep or intimacy---no reading, tv, eating, or work in bed, 3. if not asleep after 10-15 minutes, get up and perform relaxing tasks, 4. no caffeine after mid-day, 5. no EtOH in evenings, 6. exercise is good, but should be performed at least 4 hours before bedtime. Reviewed bedtime routine, and keeping room/bed comfortable. Reviewed r/b/a of medications including Lunesta, Ambien, Trazodone, Elavil, Seroquel, doxepin. Will continue prescribed treatment and follow up in 3 months. - cloNIDine (CATAPRES) 0.2 MG tablet; Take 1 tablet (0.2 mg total) by mouth every evening. Dispense: 30 tablet; Refill: 3 - C-REACTIVE PROTEIN; Future - HEPATITIS C ANTIBODY; Future - CBC W/DIFF AUTOMATED; Future - COMPREHENSIVE METABOLIC PANEL; Future - FOLIC ACID SERUM; Future - HEMOGLOBIN, GLYCOSYLATED; Future - LIPID PANEL; Future - THYROXINE, FREE (FT4); Future - TRIIODOTHYRONINE TOTAL , TT-3; Future - TSH W/REFLEX; Future 3. Annual physical exam - C-REACTIVE PROTEIN; Future - HEPATITIS C ANTIBODY; Future - CBC W/DIFF AUTOMATED; Future - COMPREHENSIVE METABOLIC PANEL; Future - FOLIC ACID SERUM; Future - HEMOGLOBIN, GLYCOSYLATED; Future - LIPID PANEL; Future - THYROXINE, FREE (FT4); Future - TRIIODOTHYRONINE TOTAL , TT-3; Future - TSH W/REFLEX; Future Impression: Patient doing well. Reviewed with the patient, BMI, blood pressure, diet, exercise and encouraged healthy lifestyle choices. Screened for substance use, risk factors for STI???s, diet and exercise, habits, and symptoms of depression. Emphasized normal blood pressure of less than 140/90 and lipid and diabetes screening for men Olderthan 35 or for men 20 to 34 years old with risk factors. Recommended [place] screening for AAA for all men 65 to 75 who have ever smoked. Recommended prostate screening. Colon screening starting at age 45. Recommended preventive immunization according to age per ACIP guidelines. . return for routine annual checkups Orders Placed This Encounter C-REACTIVE PROTEIN HEPATITIS C ANTIBODY CBC W/DIFF AUTOMATED COMPREHENSIVE METABOLIC PANEL FOLIC ACID SERUM HEMOGLOBIN, GLYCOSYLATED LIPID PANEL THYROXINE, FREE (FT4) TRIIODOTHYRONINE TOTAL , TT-3 TSH W/REFLEX DISCONTD: medroxyPROGESTERone (DEPO-PROVERA) injection esomeprazole (NEXIUM) 40 MG capsule ALPRAZolam (XANAX) 0.25 MG tablet sertraline (ZOLOFT) 50 MG tablet cloNIDine (CATAPRES) 0.2 MG tablet ALBERT BROWN MD 07/07/2023 documented in this encounter Plan of Treatment Not on file documented as of this encounter Visit Diagnoses Diagnosis Primary insomnia- Primary Persistent disorder of initiating or maintaining sleep Anxiety Anxiety state, unspecified Annual physical exam Routine general medical examination at a health care facility documented in this encounter Additional Health Concerns Assessment Noted Time PHQ-9 Depression Total Score: 4 07/07/20 23 8:53 AM CDT documented as of this encounter Care Teams Chemical Lab Supervisor Relationship Specialty Start Date End Date Albert Brown MD [address] [place] [address] [address] [place] [address] PCP - General FAMILY PRACTICE 05/16/18 Tremayne Shi MD [facility]. [address] [place] [address] EP [employer] Officer CARDIOVASCULAR DISEASE 08/15/18 documented as of this encounter
--- OUTSIDE RECORDS SUMMARY | 2024-08-27 04:44 | XMS_ITS | Encounter Summary ---
Author Organization [facility] Address [facility]. [place], [place] [address] [place] [address] Care Team Providers Care Application Lead Name Role Phone Albert Ruby MD Primary Care Provider [phone] Tremayne Shi MD Unavailable [phone] Reason for Referral * Consultation (Routine) - Closed Specialty Diagnoses / Procedures Referred By Ines borja Referred To Contact GASTROENTEROLOGY Diagnoses Gastroesophageal reflux disease without esophagitis Albert Ruby MD [address] [facility] [address] [place] [address] Phone: tel: fax: [facility] - [facility] [address] [facility] [address] [place] [address] Phone: tel: fax: Referral ID Status Reason Start Date Expiration Date Visits Re quested Visits Authorized [id number] Closed 06/09/2023 06/09/2024 99 99 Encounter Details Date Type Department Care Team (Late st Contact Info) Description 06/09/2023 MyChart Message Enc [facility] Medical Group Family and Sports Medicine - [place] [address] [place] [address] Albert Ruby MD [address] [place] [address] Referral for GI Social History Tobacco Use Types Packs/Day Years [...] as of this encounter Progress Notes * Claudette Elliott MA - 06/09/2023 3:49 PM CDTFrom: Laura Finley To: Dr. Albert Ruby Sent: 06/09/2023 12:11 PM CDT Subject: Referral for GI Can I get a referral for a GI doctor resent? I had one recently but was unable to find a gi doctor thanks! documented in this encounter Plan of Treatment Scheduled Referrals Name Type Priority Associated Diagnoses Orde r Schedule Ambulatory referral to Gastroenterology (OTHER) Referral Routine Gastroesophageal reflux disease without esophagitis Ordered: 06/09/2023 documented as of this encounter Visit Diagnoses Diagnosis Gastroesophageal reflux disease without esophagitis- Primary Esophageal reflux documented in this encounter Additional Health Concerns Assessment Noted Time PHQ-9 Depression Total Score: 11 022 11:44 AM CDT documented as of this encounter Care Teams Application Lead Relationship Specialty Start Date End Date Albert Ruby MD [address] [facility] [facility] [address] [place] [address] PCP - General FAMILY PRACTICE 05/16/18 Tremayne Shi MD Three [facility]. [address] [address] EP Security Coordinator CARDIOVASCULAR DISEASE 08/15/18 documented as of this encounter
--- OUTSIDE RECORDS SUMMARY | 2024-08-27 04:44 | XMS_ITS | Encounter Summary ---
Author Organization [facility] Address [address] [place] [address]. [place], [place] [address] [place] [address] Care Team Providers Care High Court Justice Name Role Phone Albert Ruby MD Primary Care Provider [phone] Tremayne Shi MD Unavailable [phone] Encounter Details Date Type Department Care Team (Latest Contact Info) Description 10/05/2023 Travel Social History Tobacco Use Types Packs/Day [...] documented as of this encounter Care Teams High Court Justice Relationship Specialty Start Date End Date Albert Ruby MD [address] [facility] [address] [place] [address] PCP - General FAMILY PRACTICE 05/16/18 Tremayne Shi MD [id number] [place] [address] EP [employer] Project Manager CARDIOVASCULAR DISEASE 08/15/18 documented as of this encounter
--- OUTSIDE RECORDS SUMMARY | 2024-08-27 04:44 | XMS_ITS | Encounter Summary ---
Author Organization [facility] Address [address] [place] [address]. [place], [place] [address] [place] [address] Care Team Providers Care Inspector Handbag Frames Name Role Phone Albert Ruby MD Primary Care Provider [phone] Tremayne Shi MD Unavailable [phone] Reason for Visit * Auth/Cert (Routine) Specialty Diagnoses / Procedures Referred By Ines borja Referred To Contact Diagnoses RUQ pain Diarrhea, unspecified type Chronic GERD chronic GERD,episodic RUQ pain naesea/diarrhea Procedures COLONOSCOPY,DIAGNOSTIC UPPER GI ENDOSCOPY,DIAGNOSIS COLONOSCOPY EGD Velasquez Shipman, DO [address] [facility] [address] [place] [address] Phone: tel: fax: Referral ID Status Reason Start Date Expiration Date Visits Re quested Visits Authorized [id number] 1 1 Encounter Details Date Type Department Care Team (Late st Contact Info) Description 11/15/2023 11:14 AM TABLEMAN Anesthesia Event [facility] Endo/GI [place], [place] [id number] Piotr Martinez MD [facility] E [address] [id number] Anesthesia Record Procedure Summary Procedure Name Responsible Anesthesiologist Anesthesia Start Time Anesthesia Stop Time COLONOSCOPY with large cold forcep random biopsies Piotr Martinez MD 11/15/23 1114 11/15/23 1149 Events Date Time Event Comment 11/15/2023 0900 0900 AN Anesthesia Prepped 1114 An Start Patient ID and consent checked and patient reassessed. 1114 An Start Data 1115 Nasal Cannula Applied 1127 Face Mask Applied 1127 Bite Block Inserted 1127 An Induction The patient was reevaluated immediately before moderate or deep sedation use and before anesthesia induction. 1127 Anesthesia Ready 1148 An Emergence 1148 Bite Block Removed 1148 Face Mask Removed 1148 Nasal Cannula Removed 1148 an stop data 1149 Post Anesthetic Care Handoff I completed my handoff to the receiving nurse during which we: 1. Identified the patient 2. Identified the responsible provider 3. Reviewed the pertinent medical history 4. Discussed the surgical course 5. Reviewed intra-op anesthesia management and issues during anesthesia 6. Set expectations for post-procedure period 7. Allowed opportunity for questions and acknowledgement of understanding. 1149 An Stop Meds Name Total lidocaine (PF) (XYLOCAINE) 2% injection 100 mg propofol (DIPRIVAN) 200 mg/20 mL injecti on 484.62 mg albuterol 108 mcg/act inhaler 4 puff lactated ringers infusion 250 mL * Agents Name O2 Inspired Desflurane Desflurane * Blood No blood administrations on file. Lines, Drains, and Airways Type Details Placement Removal Peripheral IV Placement Date: 03/04; Placement Time: 919; Placed Outside of This Facility?: No; Size: 20 G; Orientation: Right; Location: Hand; Site Prep: Chlorhexidine; Inserted By: ANDREI Fu; Insertion attempts: 1; Ultrasound-guided Placement?: No; Patient Tolerance: Tolerated well; Removal Date: 11/15/23; Removal Time: 115; Removal Reason: Patient Discharged 11/15/23919 by Lisbeth Licona RN 11/15/23 115 by Elle Brown RN- documented in this encounter Social History Tobacco Use Types Packs/Day Years [...] on file documented as of this encounter OR Notes * Anesthesia Postprocedure Evaluation - Piotr Martinez MD - 11/15/2023 1:48 PM CST Anesthesia Post-op Note Laura Finley Procedure(s): COLONOSCOPY with large cold forcep random biopsies EGD WITH BIOPSY- large cold forceps r/o h pylori Anesthesia type: general Vitals: 11/15/23 1200 BP: 119/84 Vitals: 11/15/23 1200 Pulse: 73 Vitals: 11/15/23 1200 Resp: 16 Vitals: 11/15/23 1155 Temp: 36.9 ??C Vitals: 11/15/23 1200 SpO2: 99% Patient Location: PACU Level of Consciousness: awake and alert Pain Management: adequate analgesia Airway Patency: patent Respiratory Status: acceptable Cardiovascular Status: acceptable Post-Op Nausea: none Postoperative Hydration: euvolemic There were no known notable events for this encounter. EMAN * Anesthesia Preprocedure Evaluation - Piotr Martinez MD - 11/15/2023 8:58 AM CST Images from the original note were not included. Anesthesia ROS/MED History Reviewed: Patient summary , Family history anesthesia, Anesthesia history , Medications Pre-Anesthetic State: alert, awake and responds appropriately no history of anesthetic complications Pulmonary (+) asthma Cardiovascular Exercise tolerance:good (+) hypertension, (well controlled)(-) pacemaker, AICD, angina, arrhythmia Neuro/Psych (+) depression, anxiety, headaches(-) no seizures Substance Use no history of substance abuse (-) smoker, alcohol use, opiate use, marijuana use GI/Hepatic/Renal (+) GERD, (well controlled)(-) liver disease, renal disease Endo/Other (+) obese, (Morbid) (-) diabetes, hypothyroidism, hyperthyroidism, arthritis, blood dyscrasia GENERAL COMMENTS No Known Allergies Past Medical History: No date: Anxiety No date: Asthma No date: Depression No date: GERD (gastroesophageal reflux disease) No date: HTN (hypertension) No date: Migraine Past Surgical History: No date: ANKLE FRACTURE SURGERY No date: COLONOSCOPY 06/2013: FRACTURE SURGERY Comment: R ankle NPO Status: Physical Evaluation Airway Mallampati: II TM Distance: >3 FB Neck ROM: normal Dental (chipped) Pulmonary Breath sounds clear to auscultation (+) decreased breath sounds, (diminished bilaterally) Cardiovascular Rhythm: regular Rate: normal Cardiovascular exam normal Other findings: Height 1.626 m (5' 4 ), weight 135.2 kg (298 lb). No results for input(s): WBC , RBC , HGB , HCT , PLT , NA , K , CL , CO2 , AGAP , BUN , CR , BUNCREATININ , GFRNON , GFR , GLU , CA in the last 72 hours. STOP-Bang Assessment: Do you snore loudly?: 1 Do you often feel tired or fatigued after your sleep?: 1 Has anyone ever observed you stop breathing in your sleep?: 0 Do you have or are you being treated for high blood pressure?: 1 Recent BMI (Calculated): 51.1 Is BMI greater than 35 kg/m2?: 1=Yes Age older than 50 years old?: 0=No Is your neck circumference greater than 17 inches (Male) or 16 inches (Female)?: 0 Gender - Male: 0=No STOP-Bang Total Score: 4 Anesthesia Plan ASA 2 Intravenous Induction Anesthesia type: general Plan for Airway: nasal cannula/simple face mask Plan for Post-op Pain Plan: as per surgeon and oral pain medication Discussed potential risks of General Anesthesia including but not limited to corneal abrasion, visual impairment or visual loss, mouth injury, dental damage, sore throat, hoarseness, esophageal injury, awareness under anesthesia, nerve injury due to positioning, aspiration, pneumonia, stroke, cardiac event, adverse drug reactions and . TIVA Informed Consent Anesthetic plan and risks discussed with patient of whom consent was obtained. . EMAN documented in this encounter Plan of Treatment Not on file documented as of this encounter Visit Diagnoses Not on filedocumented in this encounter Administered Medications Inactive Administered Medications - up to 3 most recent administrations Medication Order MAR Action Action Date Dose Rate Site albuterol sulfate HFA 108 (90 Base) MCG/ACT inhaler Inhalation, PRN, Starting on Mon11/15/23 at 1135, Until Mon11/15/23 at 1149, Anesthesia Intra-Op Given 11/15/2023 11:35 AM TABLEMAN 4 puffs lactated ringers infusion at 10 mL/hr, Intravenous, Continuous, Starting on Mon11/15/23 at 0915, Until Mon11/15/23 at 1425, Infuse at TKO rate, Pre-Op Continued by Anesthesia 11/15/2023 11:14 AM TABLEMAN New Bag 11/15/2023 11:11 AM TABLEMAN lidocaine (PF) (XYLOCAINE) 2 % injection Intravenous, PRN, Starting on Mon11/15/23 at 1128, Until Mon11/15/23 at 1149, Anesthesia Intra-Op Given 11/15/2023 11:28 AM TABLEMAN 100 mg propofol (DIPRIVAN) IV bolus Intravenous, PRN, Starting on Mon11/15/23 at 1128, Until Mon11/15/23 at 1149, Anesthesia Intra-Op Rate/Dose Change 11/15/2023 11:30 AM TABLEMAN 175 mcg/kg/min 141.96 mL/hr Given 11/15/2023 11:29 AM TABLEMAN 50 mg Given 11/15/2023 11:28 AM TABLEMAN 100 mg documented in this encounter Additional Health Concerns Assessment Noted Time PHQ-9 Depression Total Score: 4 07/07/20 23 8:53 AM CDT documented as of this encounter Care Teams Inspector Handbag Frames Relationship Specialty Start Date End Date Albert Ruby MD [address] [place] [address] [address] [place] [address] PCP - General FAMILY PRACTICE 05/16/18 Tremayne Shi MD [facility]. [address] [place] [address] EP Professional Nurse CARDIOVASCULAR DISEASE 08/15/18 documented as of this encounter
--- OUTSIDE RECORDS SUMMARY | 2024-08-27 04:44 | XMS_ITS | Encounter Summary ---
Author Organization [facility] Address [address] [place] [address]. [place] [address] [place] [address] Care Team Providers Care Welder Tech Name Role Phone Albert Ruby MD Primary Care Provider [phone] Tremayne Shi MD Unavailable [phone] Encounter Details Date Type Department Care Team (Late st Contact Info) Description 06/21/2023 Orders Only [facility] Medical Group Family and Sports Medicine - [place] [address] [place] [address] Tana Terry NP [address] [place] [address] Social History Tobacco Use Types Packs/Day Years [...] as of this encounter Progress Notes * Tana Terry NP - 06/22/2023 9:21 AM CDTAddended by: TANA TERRY on: 06/22/2023 09:21 AM Modules accepted: Orders * Tana Terry NP - 06/22/2023 9:21 AM CDT Your blood count, liver, kidney and thyroid function are good, cholesterol levels are good. Your vit D is low, this is very common. I will send an rx weekly supplement for you. documented in this encounter Plan of Treatment Not on file documented as of this encounter Procedures Procedure Name Priority Date/Time Associated Diagnosis Comments TSH W/REFLEX Routine 06/21/2023 2:31 PM CDT VITAMIN D, 25 OH TOTAL Routine 2:31 PM CDT HEMOGLOBIN, GLYCOSYLATED Routine 06/21/2023 2:31 PM CDT COMPREHENSIVE METABOLIC PANEL Routine 06/21/2023 2:31 PM CDT LIPID PANEL Routine 06/21/2023 2:31 PM CDT CBC W/DIFF AUTOMATED Routine 06/21/2023 2:31 PM CDT documented in this encounter Results * HEMOGLOBIN, GLYCOSYLATED (06/21/2023 2:31 PM CDT) Pathologist [facility] HGB A1C 5.1 <5.7 % of total Hgb [place] Comment: For the purpose of screening for the presence of diabetes: <5.7% ? Consistent with the absence of diabetes 5.7-6.4% ?Consistent with increased risk for diabetes ?(prediabetes) > or =6.5% ??Consistent with diabetes This assay result is consistent with a decreased risk of diabetes. Currently, no consensus exists regarding use of hemoglobin A1c for diagnosis of diabetes in children. According to [place] Diabetes Association (ADA) guidelines, hemoglobin A1c <7.0% represents optimal control in non- diabetic patients. Different metrics may apply to specific patient populations. Standards of Medical Care in Diabetes(ADA). ?? 06/21/2023 2:31 PM CDT 06/21/2023 2:34 PM CDT Narrative Resulting Agency Comment Performing Organization Information: ?Site ID: ?[facility] ?Address: [facility] [place] [address] ?Director: Yuli Li us Tana Terry NP LABORATORY Final Result [facility] [place] [address] [place] [address], * (ABNORMAL) VITAMIN D, 25 OH TOTAL (06/21/2023 2:31 PM CDT) Pathologist [facility] VITAMIN D 25 HYDROXY TOTAL S/P/B 9(L) 30 - 100 ng/mL [facility] Comment: Vitamin D Status ? 25-OH Vitamin D: Deficiency: ?<20 ng/mL Insufficiency: ? 20 - 29 ng/mL Optimal: ? > or = 30 ng/mL For 25-OH Vitamin D testing on patients on D2-supplementation and patients for whom quantitation of D2 and D3 fractions is required, the QuestAssureD() 25-OH VIT D, (D2,D3), LC/MS/MS is recommended: order code [id number] (patients >2yrs). See Note 1 Note 1 For additional information, please refer to http://education.[employer]/faq/LFW223 (This link is being provided for informational/ educational purposes only.) 06/21/2023 2:31 PM CDT 06/21/2023 2:34 PM CDT Narrative Resulting Agency Comment Performing Organization Information: ?Site ID: HAIM ?Name: [facility] [facility] ?Address: [place] [address] ?Director: Jaycob Johnson PhD us Tana Terry NP LABORATORY Final Result Performing Organization Address [facility] de Phone Number [facility] [place] [address] [place] [address], * TSH W/REFLEX (06/21/2023 2:31 PM CDT) TSH 2.31 mIU/L [facility] Comment: ?Reference Range ?> or = 20 Years ??0.40-4.50 ? Ranges ?First trimester ?0.26-2.66 ?Second trimester ?? 0.55-2.73 ?Third trimester ?0.43-2.91 06/21/2023 2:31 PM CDT 06/21/2023 2:34 PM CDT Narrative Resulting Agency Comment Performing Organization Information: ?Site ID: HAIM ?Name: [facility] ?Address: [address] [place] [address] ?Director: Jaycob Jhonson PhD us Tana Terry NP LABORATORY Final Result Performing Organization Address [facility] Co de Phone Number [facility] - [place] AN[place] [facility] [address] [place] [address], * (ABNORMAL) CBC W/DIFF AUTOMATED (06/21/2023 2:31 PM CDT) Pathologist [facility] WBC 10.6 3.8 - 10.8 Thousand/ uL [facility] RBC 4.77 3.80 - 5.10 Million/u L [facility] HGB 11.9 11.7 - 15.5 g/dL [facility] HCT 37.4 35.0 - 45.0 % [facility] MCV 78.4(L) 80.0 - 100.0 fL [facility] MCH 24.9(L) 27.0 - 33.0 pg [facility] MCHC 31.8(L) 32.0 - 36.0 g/dL [facility] RDW 14.6 11.0 - 15.0 % [facility] PLT 300 140 - 400 Thousand/ uL [facility] MPV 12.5 7.5 - 12.5 fL [facility] ABS. NEUTROPHILS 6,795 1,500 - 7,800 cells/uL [facility] ABS. LYMPHOCYTES 3,127 850 - 3,900 cells/uL [facility] ABS. MONOCYTES 562 200 - 950 cells/uL [facility] ABS. EOSINOPHILS 95 15 - 500 cells/uL [facility] ABS. BASOPHILS 21 0 - 200 cells/uL [facility] SEG NEUTROPHILS 64.1 % [facility] LYMPHOCYTES 29.5 % [facility] MONOCYTES 5.3 % [facility] EOSINOPHILS 0.9 % [facility] BASOPHILS 0.2 % [facility] 06/21/2023 2:31 PM CDT 06/21/2023 2:34 PM CDT Narrative Resulting Agency Comment Performing Organization Information: ?Site ID: [place] ?Name: [facility] ?Address: [address] [place] [address] ?Director: Jaycob Johnson PhD us Tana Terry NP LABORATORY Final Result [facility] - [facility] [address] [place] [address], * (ABNORMAL) COMPREHENSIVE METABOLIC PANEL (06/21/2023 2:31 PM CDT) [facility] GLUCOSE 105(H) 65 - 99 mg/dL [email or web address] Comment: ? Fasting reference interval For someone without known diabetes, a glucose value between 100 and 125 mg/dL is consistent with prediabetes and should be confirmed with a follow-up test. BUN 10 7 - 25 mg/dL [email or web address] CREATININE S/P/B 0.82 0.50 - 0.96 mg/dL [email or web address] GFR ESTIMATE 103 > OR = 60 mL/min/1. 73m2 [email or web address] BUN CREATININE RATIO SEE NOTE: (calc) [email or web address] Comment: ?? Not Reported: BUN and Creatinine are within ?? reference range. ? SODIUM S/P/B 138 135 - 146 mmol/L [email or web address] POTASSIUM S/P/B 4.0 3.5 - 5.3 mmol/L [email or web address] CHLORIDE S/P/B 107 98 - 110 mmol/L [facility] CO2 24 20 - 32 mmol/L [email or web address] CALCIUM S/P/B 8.8 8.6 - 10.2 mg/dL [email or web address] TOTAL PROTEIN S/P/B 6.8 6.1 - 8.1 g/dL [email or web address] ALBUMIN S/P/B 3.6 3.6 - 5.1 g/dL [email or web address] GLOBULIN 3.2 1.9 - 3.7 g/dL (calc) [email or web address] ALBUMIN/GLOBULI N RATIO 1.1 1.0 - 2.5 (calc) [facility] BILIRUBIN TOTAL S/P/B 0.2 0.2 - 1.2 mg/dL [facility] ALKALINE PHOSPHATASE S/P/B 82 31 - 125 U/L [facility] AST 12 10 - 30 U/L [facility] ALT 12 6 - 29 U/L [facility] 06/21/2023 2:31 PM CDT 06/21/2023 2:34 PM CDT Narrative Resulting Agency Comment Performing Organization Information: ?Site ID: [place] ?Name: [facility] ?Address: [address] [address] ?Director: Jaycob Johnson PhD Tana Terry NP LABORATORY Final Result [facility] [address] [place] [address], * LIPID PANEL (06/21/2023 2:31 PM CDT) CHOLESTEROL 124 <200 mg/dL [facility] HDL 60 > OR = 50 mg/dL [facility] TRIGLYCERIDES 89 <150 mg/dL [facility] LDL (CALCULATED) 47 mg/dL (calc) [facility] Comment: Reference range: <100 Desirable range <100 mg/dL for primary prevention; ?? <70 mg/dL for patients with CHD or diabetic patients with > or = 2 CHD risk factors. LDL-C is now calculated using the Amairani calculation, which is a validated novel method providing better accuracy than the Friedewald equation in the estimation of LDL-C. Kevin SS et al. AMAN. 2013;310(19): 4703-3268 (http://education.Global Analytics/faq/WRW119) CHOL/HDL RATIO 2.1 <5.0 (calc) [facility] NON HDL CHOLESTEROL 64 <130 mg/dL (calc) [facility] Comment: For patients with diabetes plus 1 major ASCVD risk factor, treating to a non-HDL-C goal of <100 mg/dL (LDL-C of <70 mg/dL) is considered a therapeutic option. 06/21/2023 2:31 PM CDT 06/21/2023 2:34 PM CDT Narrative Resulting Agency Comment Performing Organization Information: ?Site ID: [place] ?Name: [facility] ?Address: [address] [place] [address] ?Director: Jaycob Johnson PhD Tana Terry NP LABORATORY Final Result Performing Organization Address City/[facility]/ZIP Co de Phone Number [facility] [facility] [address] [place] [address], documented in this encounter Visit Diagnoses Diagnosis Vitamin D deficiency- Primary Unspecified vitamin D deficiency documented in this encounter Additional Health Concerns Assessment Noted Time PHQ-9 Depression Total Score: 11 022 11:44 AM CDT documented as of this encounter Care Teams Welder Tech Relationship Specialty Start Date End Date Albert Ruby MD [address] [facility] [address] [place] [address] PCP - General FAMILY PRACTICE 05/16/18 Tremayne Shi MD [facility] [address] [place], [place] [id number] EP Credit Collector CARDIOVASCULAR DISEASE 08/15/18 documented as of this encounter
--- OUTSIDE RECORDS SUMMARY | 2024-08-27 04:44 | XMS_ITS | Encounter Summary ---
Author Organization [facility] Address [address] [place] [address]. [place] [address] [place] [address] Care Team Providers Care Melt Superintendant Name Role Phone Albert Brown MD Primary Care Provider [phone] Tremayne Shi MD Unavailable [phone] Reason for Visit * Reason Onset Date Comments Refill Request 05/24/2023 Encounter Details Date Type Department Care Team (Late st Contact Info) Description 05/24/2023 Telephone [facility] Medical Group Family and Sports Medicine - [place] [address] [place] [address] Albert Brown MD [address] [facility] [address] [place] [address] Refill Request Social History Tobacco Use Types Packs/Day Years [...] of this encounter Progress Notes * Edith Reyez - 05/24/2023 2:14 PM CDT Refill request Laura Finley a patient of ALBERT BROWN MD request a refill of sertraline (ZOLOFT) 50 MG tablet The patient would like this sent to the following pharmacy: [facility] [address] [place] [address] [address] [facility] [address] [facility] [address] The next office visit: Next visit with ALBERT BROWN in FAMILY PRACTICE is on: 06/30/2023 in [facility] The last office visit: Last visit with ALBERT BROWN in FAMILY PRACTICE was on: 07/01/2022 in [facility] documented in this encounter Plan of Treatment Not on file documented as of this encounter Visit Diagnoses Diagnosis Anxiety- Primary Anxiety state, unspecified documented in this encounter Additional Health Concerns Assessment Noted Time PHQ-9 Depression Total Score: 11 022 11:44 AM CDT documented as of this encounter Care Teams Melt Superintendant Relationship Specialty Start Date End Date Albert Brown MD [address] [place] [address] [facility] [place] [address] PCP - General FAMILY PRACTICE 05/16/18 Tremayne Shi MD [address] [place], [place] [address] EP Educational Diagnostician CARDIOVASCULAR DISEASE 08/15/18 documented as of this encounter
--- OUTSIDE RECORDS SUMMARY | 2024-08-27 04:44 | XMS_ITS | Encounter Summary ---
Author Organization [facility] Address [address] [place] [address]. [place], [place] [address] [place] [address] Care Team Providers Care Inhalation Therapy Teacher Name Role Phone Vania Brown MD Primary Care Provider [phone] Tremayne Shi MD Unavailable [phone] Reason for Visit * Auth/Cert (Routine) Specialty Diagnoses / Procedures Referred By Ines borja Referred To Contact Diagnoses RUQ pain Diarrhea, unspecified type Chronic GERD chronic GERD,episodic RUQ pain naesea/diarrhea Procedures COLONOSCOPY,DIAGNOSTIC UPPER GI ENDOSCOPY,DIAGNOSIS COLONOSCOPY EGD Eduardo Shipman, DO [address] [facility] [address] [place] [address] Phone: tel: fax: Referral ID Status Reason Start Date Expiration Date Visits Re quested Visits Authorized [id number] 1 1 Encounter Details Date Type Department Care Team (Late st Contact Info) Description 11/15/2023 10:30 AM CREW LEAD - 11/15/2023 11:00 AM CREW LEAD Surgery [facility] Endo/[place], [place] [address] Eduardo Shipman, DO [address] [facility] [address] [place] [phone] COLONOSCOPY with large cold forcep random biopsies Surgery Details Date/Time Status Location OR Service Patient Class Case Class Case Type Trauma Case? 11/15/2023 10:30 AM Posted [facility] Endo 2 Gastroenterology Short Stay/Outpa tient Surgery No Panel 1 Procedure LRB Anes Op Region Wound Class Comments COLONOSCOPY with large cold forcep random biopsies N/A General Clean Contaminated negative TI EGD WITH BIOPSY- large cold forceps r/o h pylori N/A General Clean Contaminated hiatal hernia, r/o h pylori Surgeon Surgeon Role Service Panel Eduardo Shipman, Primary Gastroenterology 1 documented in this encounter Social History Tobacco [...] Sign Reading Time Taken Comments Blood Pressure 122/90 11/15/2023 9:10 AM CREW LEAD Pulse 67 11/15/2023 9:15 AM CREW LEAD Temperature 36.1 ??C (97 ??F) 11/15/2023 9:10 AM CREW LEAD Respiratory Rate 16 11/15/2023 9:15 AM CREW LEAD Oxygen Saturation 100% 11/15/2023 9:10 AM CREW LEAD Inhaled Oxygen Concentration - - Weight 135.2 kg (298 lb) 11/02/2023 4:47 PM CREW LEAD Height 162.6 cm (5' 4 ) 11/02/2023 4:47 PM CREW LEAD Body Mass Index 51.15 11/02/2023 4:47 PM CREW LEAD documented in this encounter Discharge Instructions * Discharge Instructions* Elle Brown LPN - 11/15/2023 11:59 AM CREW LEAD Recommendations: Call 2 weeks for biopsy report. Follow-up with primary physician. Patient has significant sleep apnea observed during procedure. Antireflux regimen reinforced. Continue esomeprazole. OTC famotidine 20/40 mg at bedtime if needed. May benefit from gastric emptying study. Avoid NSAIDs. Benefiber daily. [employer] or Florastor per label instructions. Low carbohydrate diet, exercise, and weight loss encouraged due to hepatic steatosis. Transaminases should be checked every 6 months. Follow-up with ALFA Piper in office. LEAD * Attachments The following attachments cannot be sent through Care Everywhere. * General Anesthesia Discharge Instructions (Croatian) * Colonoscopy Discharge Instructions (Croatian) * Upper GI Endoscopy Discharge Instructions (Croatian) documented in this encounter Medications at Time [...] of this encounter H&P Notes * Eduardo Shipman, - 11/15/2023 7:24 AM CST Pranay Gonzalez [...] is in agreement to proceed as planned. LEAD documented in this encounter OR Notes * [...] explained in detail to the patient/power of employment law attorney. These were understood, assumed and written consent [...] gastric emptying study. Avoid NSAIDs. Benefiber daily. [employer] or [employer] per label instructions. Low carbohydrate diet, exercise, and weight loss encouraged due to hepatic steatosis. Transaminases should be checked every 6 months. Follow-up with ALFA Piper in office. Anes: MAC Complications: No immediate. Quality Indicators: EBL: <5 mL Prep: Good. Procedure: The benefits, risks, complications and alternatives were explained in detail to the patient/power of employment law attorney. These were understood, assumed and written consent [...] documentation will be obtained. Eduardo Shipman DO LEAD LEAD documented in this encounter Plan of Treatment Not on file documented as of this encounter Procedures Procedure Name Priority Date/Time Associated Diagnosis Comments COLONOSCOPY Routine 11/15/2023 11:58 AM CREW LEAD EGD Routine 11/15/2023 11:58 AM CREW LEAD UPPER GI ENDOSCOPY,BIOPSY 11/15/2023 11:15 AM CREW LEAD RUQ pain Diarrhea, unspecified type Chronic GERD COLONOSCOPY WITH BIOPSY 11/15/2023 11:15 AM CREW LEAD RUQ pain Diarrhea, unspecified type Chronic GERD PROCEDURE GENERIC 11/15/2023 11: 06 AM CREW LEAD PATHOLOGY Routine 11/15/2023 12:00 AM CREW LEAD documented in this encounter Results * PROCEDURE GENERIC (11/15/2023 11:06 AM CREW LEAD) us Eduardo Shipman DO [facility] Final Result * Pathology (11/15/2023 12:00 AM CREW LEAD) PATHOLOGY [facility] ? Department of Laboratory Medicine ?[address] [facility] ?[place] [address] ? , [facility] [id number] ? Pathology Report ? Surgical Pathology Report Name: PRANAY GONZALEZ ?Specimen #: [id number] Age: 1 2000 (Age: 23) ? Location: [facility] Sex: F ?Procedure Date: 11/15/2023 [facility] #: [id number] ?Date Received: 11/15/2023 Date Reported: 11/16/2023 Provider: [...] interpretation, and sign out were performed at [facility], [address] [place] [address]. FINAL DIAGNOSIS: A) STOMACH, BIOPSY: ? - BENIGN GASTRIC MUCOSA. ? - NO HELICOBACTER PYLORI BY H&E. B) COLON, RANDOM BIOPSY: ? - BENIGN COLONIC MUCOSA WITH LYMPHOID AGGREGATES. ? - NO EVIDENCE OF ACUTE OR MICROSCOPIC COLITIS. Electronically Signed Out ? ANTONIETTA VELAZQUEZ MD [facility] TISSUE GASTRIC BIOPSY SPECIMEN / Unknown 11/15/2023 11:29 AM CREW LEAD Tissue specimen (specimen) COLON STRUCTURE / Unknown 11/15/2023 11:37 AM CREW LEAD us Eduardo Shipman DO PATHOLOGY/CYTOLOGY ORDERABLES F inal Result [facility] [address] [place] [address], [place] [phone] [id number] documented in this encounter Visit Diagnoses Diagnosis [...] Pre-Op Continued by Anesthesia 11/15/2023 11:14 AM CREW LEAD New Bag 11/15/2023 11:11 AM CREW LEAD ondansetron (ZOFRAN) injection 4 mg 4 mg, [...] Recently Administered Medications Times are shown in CREW LEAD. Continuous Medication Order 11/13/2023 11/14/2023 11/15/2023 lactated ringers infusion at 10 mL/hr, Intravenous, Continuous, Starting on Mon11/15/23 at 0915, Until Mon11/15/23 at 1425, Infuse at TKO rate, Pre-Op 1111 (New Bag - Prov ider: Guicho Fernandez CRNA)1114 (Continued by Anesthesia - Provider: Guicho Fernandez CRNA)1148 (Anesthesia Volume Adjustment - Provider: Guicho Fernandez CRNA) PRN Medication Order 11/13/2023 11/14/2023 [...] documented as of this encounter Care Teams Inhalation Therapy Teacher Relationship Specialty Start Date End Date Vania Brown MD [address] [facility] [address] [facility] [place] [address] PCP - General FAMILY PRACTICE 05/16/18 Tremayne Shi MD [address] [facility] [address] [place], [place] [id number] EP Oil Rig Driller CARDIOVASCULAR DISEASE 08/15/18 documented as of this encounter
--- OUTSIDE RECORDS SUMMARY | 2024-08-27 04:44 | XMS_ITS | Encounter Summary ---
Author Organization [facility] Address [address] [place] [address]. [place], [place] [address] [place] [address] Care Team Providers Care Tube Dispatcher Name Role Phone Albert Ruby MD Primary Care Provider [phone] Tremayne Shi MD Unavailable [phone] Encounter Details Date Type Department Care Team (Late st Contact Info) Description 04/25/2024 Orders Only [facility] Family [facility] - [place] [address] [place] [address] Albert Ruby MD [address] [address] Social History Tobacco Use Types Packs/Day Years [...] HCV RNA Routine 04/25/2024 1:09 PM CDT HEMOGLOBIN, GLYCOSYLATED Routine 024 1:09 PM CDT TRIIODOTHYRONINE TOTAL , TT-3 Routine 04/25/2024 1:09 PM CDT COMPREHENSIVE METABOLIC PANEL Routine 04/25/2024 1:09 PM CDT LIPID PANEL Routine 04/25/2024 1:09 PM CDT C-REACTIVE PROTEIN Routine 04/25/2024 1: 09 PM CDT FOLIC ACID SERUM Routine 04/25/2024 1:09 PM CDT CBC W/DIFF AUTOMATED Routine 04/25/2024 1:09 PM CDT THYROXINE, FREE (FT4) Routine 04/25/2024 1:09 PM CDT THYROID STIM HORMONE TSH Routine 024 1:09 PM CDT documented in this encounter Results * (ABNORMAL) HEMOGLOBIN, GLYCOSYLATED (04/25/2024 1:09 PM CDT) HGB A1C 5.7(H) <5.7 % of total Hgb [facility] [place] Comment: For someone without known diabetes, [...] change in test platforms from the Telles Nuclear Medicine Specialist to the Niurka kulwinder c503 may have shifted HbA1c results compared to historical results. Based on laboratory validation testing conducted at [facility], the Niurka platform relative to the Telles [...] Agency Comment Performing Organization Information: ?Site ID: [place] ?Name: [facility] ?Address: [address] [place] [address] ?Director: Yuli Li us Albert Ruby MD LABORATORY Final Result [facility] [employer] [address] * THYROID STIM HORMONE TSH (04/25/2024 1:09 PM CDT) TSH 1.82 mIU/L [employer] [facility] Comment: ?Reference Range ?> or = 20 Years ??0.40-4.50 ? Ranges ?First trimester ?0.26-2.66 ?Second trimester ?? 0.55-2.73 ?Third trimester ?0.43-2.91 04/25/2024 1:09 PM CDT 04/25/2024 1:14 PM CDT Narrative [facility] [place] [facility] - 04/26/2024 11:32 AM CDT FASTING:YES FASTING: YES Resulting Agency Comment Performing Organization Information: ?Site ID: HAIM ?Name: [facility] ?Address: [address] [place] [address] [place] [address] ?Director: Yuli Li MD Albert Ruby MD LABORATORY Final Result Performing Organization Address [facility] Co de Phone Number [facility] [address] [place] [address], * THYROXINE, FREE (FT4) (04/25/2024 1:09 PM CDT) FREE T4 1.4 0.8 - 1.8 ng/dL [facility] 04/25/2024 1:09 PM CDT 04/25/2024 1:14 PM CDT Narrative [facility] [place] [facility] - 04/26/2024 11:32 AM CDT FASTING:YES FASTING: YES Resulting Agency Comment Performing Organization Information: ?Site ID: HAIM ?Name: [facility] ?Address: [address] [place], [place] [address] [address] ?Director: Yuli Li MD Albert Ruyb MD LABORATORY Final Result Performing Organization Address [facility] Co de Phone Number [facility] [place] [facility] [address] [place] [address], * TRIIODOTHYRONINE TOTAL , TT-3 (04/25/2024 1:09 PM CDT) T3 TOTAL 126 76 - 181 ng/dL [facility] 04/25/2024 1:09 PM CDT 04/25/2024 1:14 PM CDT Narrative [facility] [place] [facility] - 04/26/2024 11:32 AM CDT FASTING:YES FASTING: YES Resulting Agency Comment Performing Organization Information: ?Site ID: [place] ?Name: [facility] ?Address: [address] [address] ?Director: Yuli Li MD Albert Ruby MD LABORATORY Final Result [facility] [place] [facility] [address] [place] [address] * (ABNORMAL) FOLIC ACID SERUM (04/25/2024 1:09 PM CDT) FOLATE 2.9(L) ng/mL [facility] Comment: ? Reference Range ? Low: ? <3.4 ? Borderline: ?3.4-5.4 ? Normal: ?>5.4 04/25/2024 1:09 PM CDT 04/25/2024 1:14 PM CDT Narrative [facility] [place] [facility] - 04/26/2024 11:32 AM CDT FASTING:YES FASTING: YES Resulting Agency Comment Performing Organization Information: ?Site ID: [place] ?Name: [facility] ?Address: [address] [address] ?Director: Yuli Li MD Albert Ruby MD LABORATORY Final Result [facility] [place] [facility] [address] [place] [address], * HEPATITIS C ANTIBODY W/RFX TO HCV RNA (04/25/2024 1:09 PM CDT) Pathologist [facility] HEPATITIS C AB NON-REACT CARRI NON-REACT CARRI [facility] Comment: HCV antibody was non-reactive. There is no laboratory evidence of HCV infection. In most cases, no further action is required. However, if recent HCV exposure is suspected, a test for HCV RNA (test code 73615) is suggested. For additional information please refer to http://education.[employer]/faq/YJM85r9 (This link is being provided for informational/ educational purposes only.) 04/25/2024 1:09 PM CDT 04/25/2024 1:14 PM CDT Narrative [facility] [place] - 04/26/2024 11:32 AM CDT FASTING:YES FASTING: YES Resulting Agency Comment Performing Organization Information: ?Site ID: [place] ?Name: [facility] [place] ?Address: [address] [place] [address] ?Director: Yuli Li MD Albert Ruby MD LABORATORY Final Result [facility] [place] [facility] [address] [place] [address], * (ABNORMAL) C-REACTIVE PROTEIN (04/25/2024 1:09 PM CDT) [facility] C-REACTIVE PROTEIN 42.3(H) <8.0 mg/L [facility] 04/25/2024 1:09 PM CDT 04/25/2024 1:14 PM CDT Narrative [facility] [place] - 04/26/2024 11:32 AM CDT FASTING:YES FASTING: YES Resulting Agency Comment Performing Organization Information: ?Site ID: [place] ?Name: [facility] [place] ?Address: [address] [address] ?Director: Yuli Li MD Albert Ruby MD LABORATORY Final Result [facility] [place] [facility] [address] [address], * (ABNORMAL) CBC W/DIFF AUTOMATED (04/25/2024 1:09 PM CDT) WBC 12.7(H) 3.8 - 10.8 Thousand/ uL [facility] RBC 4.82 3.80 - 5.10 Million/u L [facility] HGB 11.3(L) 11.7 - 15.5 g/dL [facility] HCT 38.1 35.0 - 45.0 % [facility] MCV 79.0(L) 80.0 - 100.0 fL [facility] MCH 23.4(L) 27.0 - 33.0 pg [facility] MCHC 29.7(L) 32.0 - 36.0 g/dL [facility] RDW 14.3 11.0 - 15.0 % [facility] PLT 392 140 - 400 Thousand/ uL [facility] MPV 12.4 7.5 - 12.5 fL [facility] ABS. NEUTROPHILS 8,395(H) 1,500 - 7,800 cells/uL [facility] ABS. LYMPHOCYTES 3,658 850 - 3,900 cells/uL [facility] ABS. MONOCYTES 406 200 - 950 cells/uL [facility] ABS. EOSINOPHILS 216 15 - 500 cells/uL [facility] ABS. BASOPHILS 25 0 - 200 cells/uL [facility] SEG NEUTROPHILS 66.1 % [facility] LYMPHOCYTES 28.8 % [facility] MONOCYTES 3.2 % [facility] EOSINOPHILS 1.7 % [facility] BASOPHILS 0.2 % [facility] 04/25/2024 1:09 PM CDT 04/25/2024 1:14 PM CDT Narrative [facility] [place] [facility] - 04/26/2024 11:32 AM CDT FASTING:YES FASTING: YES Resulting Agency Comment Performing Organization Information: ?Site ID: [place] ?Name: [facility] ?Address: [address] [address] ?Director: Yuli Li MD Albert Ruby MD LABORATORY Final Result [facility] [place] [facility] [address] [address], * (ABNORMAL) COMPREHENSIVE METABOLIC PANEL (04/25/2024 1:09 PM CDT) [facility] Signature GLUCOSE 111(H) 65 - 99 mg/dL [facility] Comment: ? Fasting reference interval For someone without known diabetes, a glucose value between 100 and 125 mg/dL is consistent with prediabetes and should be confirmed with a follow-up test. BUN 11 7 - 25 mg/dL [facility] CREATININE S/P/B 0.86 0.50 - 0.96 mg/dL [facility] GFR ESTIMATE 97 > OR = 60 mL/min/1. 73m2 [facility] BUN CREATININE RATIO SEE NOTE: (calc) [facility] Comment: ?? Not Reported: BUN and Creatinine are within ?? reference range. ? SODIUM S/P/B 137 135 - 146 mmol/L [facility] POTASSIUM S/P/B 4.1 3.5 - 5.3 mmol/L [facility] CHLORIDE S/P/B 105 98 - 110 mmol/L [facility] CO2 23 20 - 32 mmol/L [facility] CALCIUM S/P/B 9.1 8.6 - 10.2 mg/dL [facility] TOTAL PROTEIN S/P/B 7.1 6.1 - 8.1 g/dL [facility] ALBUMIN S/P/B 3.8 3.6 - 5.1 g/dL [facility] GLOBULIN 3.3 1.9 - 3.7 g/dL (calc) [facility] ALBUMIN/GLOBULI N RATIO 1.2 1.0 - 2.5 (calc) [facility] BILIRUBIN TOTAL S/P/B 0.2 0.2 - 1.2 mg/dL [facility] ALKALINE PHOSPHATASE S/P/B 81 31 - 125 U/L [facility] AST 17 10 - 30 U/L [facility] ALT 20 6 - 29 U/L [facility] 04/25/2024 1:09 PM CDT 04/25/2024 1:14 PM CDT Narrative [facility] [place] - 04/26/2024 11:32 AM CDT FASTING:YES FASTING: YES Resulting Agency Comment Performing Organization Information: ?Site ID: [place] ?Name: [facility] [place] ?Address: [address] [facility] [place] [address] ?Director: Yuli Li MD us Albert Ruby MD LABORATORY Final Result [facility] - [place] [facility] [address] [place] [address], * (ABNORMAL) LIPID PANEL (04/25/2024 1:09 PM CDT) CHOLESTEROL 104 <200 mg/dL [facility] HDL 43(L) > OR = 50 mg/dL [facility] TRIGLYCERIDES 67 <150 mg/dL [facility] LDL (CALCULATED) 47 mg/dL (calc) [facility] Comment: Reference range: <100 Desirable range <100 mg/dL for primary prevention; ?? <70 mg/dL for patients with CHD or diabetic patients with > or = 2 CHD risk factors. LDL-C is now calculated using the Kevin-Justice calculation, which is a validated novel method providing better accuracy than the Friedewald equation in the estimation of LDL-C. Kevin SS et al. AMAN. 2013;310(19): 0464-5115 (http://education.[employer]/faq/JUV186) CHOL/HDL RATIO 2.4 <5.0 (calc) [facility] NON HDL CHOLESTEROL 61 <130 mg/dL (calc) [facility] Comment: For patients with diabetes plus 1 major ASCVD risk factor, treating to a non-HDL-C goal of <100 mg/dL (LDL-C of <70 mg/dL) is considered a therapeutic option. 04/25/2024 1:09 PM CDT 04/25/2024 1:14 PM CDT Narrative [facility] [place] [facility] - 04/26/2024 11:32 AM CDT FASTING:YES FASTING: YES Resulting Agency Comment Performing Organization Information: ?Site ID: [place] ?Name: [facility] ?Address: [address] [facility] [place] [address] ?Director: Yuli Li MD Albert Ruby MD LABORATORY Final Result [facility] [place] [facility] [address] [place] [address], documented in this encounter Visit Diagnoses Not on filedocumented in this encounter Additional Health Concerns Assessment Noted Time PHQ-9 Depression Total Score: 4 07/07/20 23 8:53 AM CDT documented as of this encounter Care Teams Tube Dispatcher Relationship Specialty Start Date End Date Albert Ruby MD [address] [place] [address] [address] [facility] [place] [address] PCP - General FAMILY PRACTICE 05/16/18 Tremayne Shi MD [address] [place] [address] EP Car Chaser CARDIOVASCULAR DISEASE 08/15/18 documented as of this encounter
--- OUTSIDE RECORDS SUMMARY | 2024-08-27 04:44 | XMS_ITS | Encounter Summary ---
Author Organization [facility] Address [address] [place] [address]. [place] [address] [place] [address] Care Team Providers Care Plastics Supervisor Name Role Phone Albert Ruby MD Primary Care Provider [phone] Tremayne Shi MD Unavailable [phone] Reason for Visit * Reason Onset Date Comments Results 11/17/2023 Encounter Details Date Type Department Care Team (Late st Contact Info) Description 11/17/2023 Telephone [facility] Multispecialty Care - [facility] [address] [facility] [place] [id number] Velasquez Shipman, [address] [facility] [address] [place] [address] Results Social History Tobacco Use Types Packs/Day Years [...] as of this encounter Progress Notes * Diane Dolan RN - 11/17/2023 9:56 AM CST Patient viewed results via [employer] ----- Message from Velasquez Shipman DO sent at 11/16/2023 1:55 PM PR SPECIALIST ----- H. pylori negative. Biopsies negative for microscopic colitis. SPECIALIST SPECIALIST documented in this encounter Plan of Treatment Not on file documented as of this encounter Visit Diagnoses Not on filedocumented in this encounter Additional Health Concerns Assessment Noted Time PHQ-9 Depression Total Score: 4 07/07/20 23 8:53 AM CDT documented as of this encounter Care Teams Plastics Supervisor Relationship Specialty Start Date End Date Albert Ruby MD [address] [place] [address] [address] [place] [address] PCP - General FAMILY PRACTICE 05/16/18 Tremanye Shi MD [facility] [address] [place] [address] EP Power Plant Electrician CARDIOVASCULAR DISEASE 08/15/18 documented as of this encounter
--- OUTSIDE RECORDS SUMMARY | 2024-08-27 04:44 | XMS_ITS | Encounter Summary ---
Author Organization [facility] Address [address] [place] [address]. [place] [address] [place] [address] Care Team Providers Care Pet Nutrition Specialist Name Role Phone Albert Ruby MD Primary Care Provider [phone] Tremayne Shi MD Unavailable [phone] Reason for Visit * Reason Onset Date Comments Prior Authorization 05/15/2024 Encounter Details Date Type Department Care Team (Late st Contact Info) Description 05/15/2024 Telephone [facility] Medical Group Family and Sports Medicine - [place] [address] [place] [address] Albert Ruby MD [address] [facility] [address] [place] [address] Prior Authorization Social History Tobacco Use Types Packs/Day Years [...] as of this encounter Progress Notes * Linda Ross CMA - 05/15/2024 10:19 AM CDTAddended by: LINDA ROSS on: 05/15/2024 10:19 AM Modules accepted: Orders * Linda Ross CMA - 05/15/2024 10:19 AM CDT PA was approved last week. Will resend Rx. * MARCELLUS Esquivel - 05/15/2024 10:14 AM CDT Needing prior auth sent karl for Ozempic.Has been waiting for medication since office visit on 05/01. documented in this encounter Plan of Treatment Not on file documented as of this encounter Visit Diagnoses Diagnosis Obesity, diabetes, and hypertension syndrome ([facility]) Type II or unspecified type diabetes mellitus without mention of complication, not stated as uncontrolled Prediabetes Other abnormal glucose Morbid obesity with BMI of 50.0-59.9, adult ([facility] HHS/HCC) Morbid obesity documented in this encounter Additional Health Concerns Assessment Noted Time PHQ-9 Depression Total Score: 3 05/01/20 24 9:25 AM CDT documented as of this encounter Care Teams Pet Nutrition Specialist Relationship Specialty Start Date End Date Albert Ruby MD [address] [place], [place] [address] [address] [place] [address] PCP - General FAMILY PRACTICE 05/16/18 Tremayne Shi [facility] [address] [facility] [address] [place] [address] EP Live Ammunition Inspector CARDIOVASCULAR DISEASE 08/15/18 documented as of this encounter
--- OUTSIDE RECORDS SUMMARY | 2024-08-27 04:45 | XMS_ITS | Encounter Summary ---
Author Organization [facility] Address [address] [place] [address]. [place], [place] [address] [place] [address] Care Team Providers Care Tray Setter Name Role Phone Albert Ruby MD Primary Care Provider [phone] Tremayne Shi MD Unavailable [phone] Reason for Referral * Imaging (Routine) - Closed Specialty Diagnoses / Procedures Referred By Contac t Referred To Contact RADIOLOGY Diagnoses Gall bladder disease Procedures NM HEPATOBILIARY SCAN W/GB EJECTION FRACTION Albert Ruby MD [address] [place] [address] Phone: tel: fax: Referral ID Status Reason Start Date Expiration Date Visits Re quested Visits Authorized [id number] Closed 05/25/2020 11/22/2020 1 1 ICAL PROCESSING TECHNICIAN Reason for Visit * Imaging (Routine) - Closed Specialty Diagnoses / Procedures Referred By Ines borja Referred To Contact RADIOLOGY Diagnoses Gall bladder disease Procedures NM HEPATOBILIARY SCAN W/GB EJECTION FRACTION Albert Ruby MD [address] [place] [address] Phone: tel: fax: Referral ID Status Reason Start Date Expiration Date Visits Re quested Visits Authorized [id number] Closed 05/25/2020 11/22/2020 1 1 Encounter Details Date Type Department Care Team (Latest Contact Info) Description 08/03/2020 7:59 AM CHEMICAL PROCESSING TECHNICIAN - 08/03/2020 11:59 PM CHEMICAL PROCESSING TECHNICIAN Hospital Encounter [facility] [place] [address] Albert Ruby MD [address] [facility] [address] [place] [address] Discharge Disposition: Home or Self Care (Routine [...] 05/12 PHQ-2 Answer Date Recorded PHQ-2 Score 0 05/14/2020 Comments No Sex and Gender Information Value Date Recorded Sex Assigned at Not on file Legal Sex Female 4:55 PM CDT Gender Identity Not on file Sexual Orientation Not on file Occupation Industry Job Start Date Job End Date Not on file Not on file Not on file Not on file COVID-19 Exposure Response Date Recorded In the last month, have you been in contact with someone who was confirmed or suspected to have Coronavirus / COVID-19? No / Unsure 08/02/2020 8:32 PM CHEMICAL PROCESSING TECHNICIAN documented as of this encounter Medications at Time of Discharge ALPRAZolam 0.25 MG tabletIndications :Anxiety Take 1 tablet (0.25 mg total) by mouth nightly as needed for Sleep. 30 tablet 04/13/2020 08/17/2020 dilTIAZem CD 180 MG 24 hr capsule Take 1 capsule (180 mg total) by mouth daily. 90 capsule 1 05/19/2020 11/26/2020 omeprazole 20 MG capsuleIndication s:Gall bladder disease Take 1 capsule (20 mg total) by mouth 2 (two) times a day. 60 capsule 5 05/20/2020 11/13/2020 venlafaxine XR 37.5 MG 24 hr capsuleIndication s:Anxiety Take 1 capsule (37.5 mg total) by mouth daily. 90 capsule 3 12/03/2019 08/12/2020 documented as of this encounter Plan of Treatment Not on file documented as of this encounter Procedures Procedure Name Priority Date/Time Associated Diagnosis Comments NM HEPATOBILIARY SCAN W/GB EJECTION FRACTION Routine 08/03/2020 10:27 AM CHEMICAL PROCESSING TECHNICIAN Gall bladder disease documented in this encounter Results * NM HEPATOBILIARY SCAN W/GB EJECTION FRACTION (08/03/2020 10:27 AM CHEMICAL PROCESSING TECHNICIAN) Anatomical Region Laterality Modality Abdomen Nuclear Medicine 08/03/2020 10:5 6 AM CHEMICAL PROCESSING TECHNICIAN Impressions 08/03/2020 11:01 AM CHEMICAL PROCESSING TECHNICIAN IMPRESSION: ?? 1. ??Normal contractile response of the gallbladder to a fat-containing liquid meal. 2. ??Normal biliary imaging study. Narrative 08/03/2020 11:01 AM CHEMICAL PROCESSING TECHNICIAN EXAMINATION: ??HEPATOBILIARY SCINTIGRAPHY (WITH GALLBLADDER EJECTION FRACTION) DATE OF STUDY: 08/03/2020 7:59 AM RADIOPHARMACEUTICAL: 5.0 mCi Tc-99m mebrofenin ??i.v. and 240 mL Ensure Plus p.o. HISTORY: Right upper quadrant pain. Concern for acute cholecystitis. FINDINGS: ??Following intravenous administration of tracer, sequential abdominal images were obtained. There is prompt, uniform accumulation of the tracer by the liver. There is normal filling of the intrahepatic ducts, common bile duct and gallbladder and normal excretion of the tracer into the duodenum. In order to evaluate the contractile response of the gallbladder to a fat-containing meal, the patient was given Ensure Plus to drink, starting approximately 60 minutes after the administration of the radiopharmaceutical. ??Sequential imaging was continued for 60 minutes after the start of the liquid meal. ??These images demonstrate good contraction of the gallbladder. ??The calculated gallbladder ejection fraction is 54%. In normal subjects, the lower limit of normal gallbladder ejection fraction for Ensure Plus is 33% Procedure Note Cony Denis MD - 08/03/2020 EXAMINATION: HEPATOBILIARY SCINTIGRAPHY (WITH GALLBLADDER EJECTION FRACTION) DATE OF STUDY: 08/03/2020 7:59 AM RADIOPHARMACEUTICAL: 5.0 mCi Tc-99m mebrofenin i.v. and 240 mL EnsurePlus p.o. HISTORY: Right upper quadrant pain. Concern for acute cholecystitis. FINDINGS: Following intravenous administration of tracer, sequential abdominal images were obtained. There is prompt, uniform accumulation of the tracer by the liver. There is normal filling of the intrahepaticducts, common bile duct and gallbladder and normal excretion of the tracer into the duodenum. In order to evaluate the contractile response of the gallbladder to a fat-containing meal, the patient was given Ensure Plus to drink,starting approximately 60 minutes after the administration of the radiopharmaceutical. Sequential imaging was continued for 60 minutesafter the start of the liquid meal. These images demonstrate good contractionof the gallbladder. The calculated gallbladder ejection fraction is 54%. In normal subjects, the lower limit of normal gallbladder ejectionfraction for Ensure Plus is 33% IMPRESSION: 1. Normal contractile response of the gallbladder to a fat-containing liquid meal. 2. Normal biliary imaging study. Albert Ruby MD NUC MED Final Result documented in this encounter Visit Diagnoses Diagnosis Gall bladder disease Unspecified disorder of gallbladder documented in this encounter Administered Medications Inactive Administered Medications - up to 3 most recent administrations Medication Order MAR Action Action Date Dose Rate Site Generic Radiopharmaceutical 5 millicurie 5 millicurie, Intravenous, IMG once as needed, 5 mCi Tc Choletec, 1 dose, Starting on Mon08/03/20 at 1027, Until Mon08/03/20 at 1028 Given 08/03/2020 10:28 AM CHEMICAL PROCESSING TECHNICIAN 5 millicuries Right Arm documented in this encounter Additional Health Concerns Assessment Noted Time PHQ-9 Depression Total Score: 9 08/05/20 19 9:19 AM CHEMICAL PROCESSING TECHNICIAN documented as of this encounter Care Teams Tray Setter Relationship Specialty Start Date End Date Albert Ruby MD [address] [place] [address] [address] [place] [address] PCP - General FAMILY PRACTICE 05/16/18 [facility] [address] [place], [place] [id number] EP Integrated Circuit Fabricator CARDIOVASCULAR DISEASE 08/15/18 documented as of this encounter
--- OUTSIDE RECORDS SUMMARY | 2024-08-27 04:45 | XMS_ITS | Encounter Summary ---
Author Organization [facility] Address [facility]. [place] [employer] [place], [place] [address] [place] [address] Care Team Providers Care Wallpaper Printer Name Role Phone Albert Ruby MD Primary Care Provider [phone] Tremayne Shi MD Unavailable [phone] Encounter Details Date Type Department Care Team (Latest Contact Info) Description 07/04/2022 Rebelle Bridalt Message Enc [facility] Medical [facility] Family and Sports Medicine - [place] [address] [place] [address] Albert Ruby MD [address] [address] Prescription questions Social History Tobacco Use Types Packs/Day Years [...] Exposure Response Date Recorded In the last 10 days, have tremayne jordan been in contact with someone who was confirmed or suspected to have Coronavirus/COVID-19? No / Unsure 07/01/2022 10:29 AM CDT documented as of this encounter Progress Notes * Gerri Ross CMA - 07/04/2022 1:29 PM CDTAddended by: GERRI ROSS on: 07/04/2022 01:29 PM Modules accepted: Orders * Gerri Ross CMA - 07/04/2022 1:26 PM CDTFrom: Daniel Finley To: Dr. Albert Ruby Sent: 07/04/2022 11:41 AM CDT Subject: Prescription questions Mackenzie, The [facility] my prescriptions were called into is having staffing issues so they are closed. Is there anyway I could get the 4 prescriptions I was given on Monday called into [facility] in [place], [place], it is right just my work. Thank you documented in this encounter Plan of Treatment Not on file documented as of this encounter Visit Diagnoses Diagnosis Anxiety Anxiety state, unspecified Palpitations documented in this encounter Additional Health Concerns Assessment Noted Time PHQ-9 Depression Total Score: 11 022 11:44 AM CDT documented as of this encounter Care Teams Wallpaper Printer Relationship Specialty Start Date End Date Albert Ruby MD [address] [place] [address] [address] [place] [address] PCP - General FAMILY PRACTICE 05/16/18 Tremayne Shi MD [facility]. [address] [place] [address] EP System Software Developer CARDIOVASCULAR DISEASE 08/15/18 documented as of this encounter
--- OUTSIDE RECORDS SUMMARY | 2024-08-27 04:45 | XMS_ITS | Encounter Summary ---
Author Organization [facility] Address [address] [place] [address]. [place] [address] [place] [address] Care Team Providers Care Dispensary Attendant Name Role Phone Albert Ruby MD Primary Care Provider [phone] Tremayne Shi MD Unavailable [phone] Reason for Visit * Reason Onset Date Comments Pre-visit Gap Closure 05/14/2020 Encounter Details Date Type Department Care Team (Late st Contact Info) Description 05/14/2020 Telephone [facility] Medical [facility] Family and Sports Medicine - [place] [address] [place] [address] Albert Ruby MD [address] [facility] [address] [place] [address] Pre-visit Gap Closure Social History Tobacco Use Types Packs/Day Years [...] as of this encounter Progress Notes * Natalie Barillas MA - 05/14/2020 12:26 PM CDT Contacted patient for pre-visit gap closure. I am calling this patient as a patient advocate for the [employer]. My direct extension is [phone]. You can also reach me at: [phone] (HERON) OR [phone] (SHANICE) documented in this encounter Plan of Treatment Not on file documented as of this encounter Visit Diagnoses Not on filedocumented in this encounter Additional Health Concerns Assessment Noted Time PHQ-9 Depression Total Score: 9 08/05/20 19 9:19 AM PUMPER GAGER documented as of this encounter Care Teams Dispensary Attendant Relationship Specialty Start Date End Date Albert Ruby MD [address] [facility] [address] [place], [place] [address] PCP - General FAMILY PRACTICE 05/16/18 Tremayne Shi MD [facility] [address] [place], [place] [address] EP Projector Operator CARDIOVASCULAR DISEASE 08/15/18 documented as of this encounter
--- OUTSIDE RECORDS SUMMARY | 2024-08-27 04:45 | XMS_ITS | Encounter Summary ---
Author Organization [facility] Address [address] [place] [address]. [place] [address] Care Team Providers Care Assistant County Engineer Name Role Phone Albert Ruby MD Primary Care Provider [phone] Tremayne Shi MD Unavailable [phone] Encounter Details Date Type Department Care Team (Latest Contact Info) Description 05/04/2021 Scan HEALTH INFO [facility] Scanned, Documents Social History Tobacco Use Types Packs/Day Years [...] 3, please move on to questions 3-9 3 11/13/2020 Comments No Sex and Gender Information Value [...] Assessment Noted Time PHQ-9 Depression Total Score: 10 021 8:11 AM HOME HEALTH SPEECH THERAPIST documented as of this encounter Care Teams Assistant County Engineer Relationship Specialty Start Date End Date Albert Ruby MD [address] [facility] [address] [place] [place] [address] PCP - General FAMILY PRACTICE 05/16/18 Tremayne Shi MD Three [facility]. [address] [place] [address] EP Food Scientist CARDIOVASCULAR DISEASE 08/15/18 documented as of this encounter
--- OUTSIDE RECORDS SUMMARY | 2024-08-27 04:45 | XMS_ITS | Encounter Summary ---
Author Organization [facility] Address [address] [place] [address]. [place] [address] [place] [address] Care Team Providers Care Bottle Cleaner Name Role Phone Albert Ruby MD Primary Care Provider [phone] Tremayne Shi MD Unavailable [phone] Reason for Visit * Reason Comments Physical Annual physical exam Encounter Details Date Type Department Care Team (Late st Contact Info) Description 11/13/2020 8:00 AM TABLET REPAIR Office Visit [facility] - [place] [address] [place] [address] Albert Ruby MD [address] [facility] [address] [place] [address] Physical (Annual physical exam) Social History Tobacco Use Types Packs/Day Years [...] have Coronavirus / COVID-19? No / Unsure 11/13/2020 7:54 AM TABLET REPAIR documented as of this encounter Last Filed Vital Signs Vital Sign Reading Time Taken Comments Blood Pressure 124/80 11/13/2020 8:07 AM TABLET REPAIR Pulse 91 11/13/2020 8:07 AM TABLET REPAIR Temperature 36.4 ??C (97.5 ??F) 11/13/2020 8:07 AM CS T Respiratory Rate 17 11/13/2020 8:07 AM TABLET REPAIR Oxygen Saturation 99% 11/13/2020 8:07 AM TABLET REPAIR Inhaled Oxygen Concentration - - Weight 121.1 kg (267 lb) 11/13/2020 8:07 AM TABLET REPAIR Height 165.1 cm (5' 5 ) 11/13/2020 8:07 AM TABLET REPAIR Body Mass Index 44.43 11/13/2020 8:07 AM TABLET REPAIR documented in this encounter Progress Notes * Amber Jackson CMA - 11/13/2020 8:00 AM CSTAddended by: AMBER JACKSON on: 11/13/2020 08:40 AM Modules accepted: Orders ET REPAIR * Amber Jackson CMA - 11/13/2020 8:00 AM CSTAddended by: AMBER JACKSON on: 11/13/2020 08:40 AM Modules accepted: Orders ET REPAIR * Juliana Ny - 11/13/2020 8:00 AM CST Images from the original note were not included. Primary and Specialty Care Zina Encounter Date: 11/13/2020 Reason for visit: Physical (Annual physical exam) History of Present Illness: Pt is a 20 y/o female presenting to clinic for annual health maintenance exam and f/u an anxiety/depression. Anxiety/depression (chronic condition)- Pt currently takes xanax 0.25mg qhs prn and venlafaxine XR 37.5mg qd. Pt denies any new side effects and reports compliance with this regimen. Pt states her anxiety is still high with work and school. Pt is pleasant and cooperative. Pt states they are in good health. Immunizations are UTD. Pt reports regular dental exams 2x/year. Pt's annual eye exam is UTD. Pt currently wears glasses. Pt denies any hearing loss. Pt's states their current diet is fairly balanced. Pt's current exercise regimen consists of walking daily at work. Pt has fair water intake. Pt has never had a colonoscopy. Pt has never had a pap smear. Pt is not currently sexually active. In office PHQ9=10. Pt notes she scheduled appt in clinic today for possible hypoglycemia. Pt states she has been testing POC glucose at work after eating and notes her sugars are running 68-70. Pt states these episodesare symptomatic (light headed and shaky). No current DM medications. episodes occur 3x/week. Pt states this has been occurring for the last 4 moths. Pt states she originally thought Sx were 2/2 adjustment to night shifts at work. Pt denies any SI/HI/AH/VH, fever, chills, N/V/D, CP, SOB, and all other medical complaints at this time. SHx nonsmoker of cigarettes. EtOH socially. Pt denies recreational drug use nexplanon control SHx nonsmoker of cigarettes No FHx of colon or breast CA I spent 30 minutes today reviewing the patient's medical record, obtaining history, performing an exam, ordering medications, tests, and/or procedures, documenting in the medical record, counseling and educating the patient/family/caregiver and reviewing and communicating test results. ROS: Review of Systems Constitutional: Negative for chills, fever and malaise/fatigue. HENT: Negative for congestion, ear discharge and sore throat. Eyes: Negative for blurred vision, double vision and discharge. Respiratory: Negative for cough, shortness of breath and wheezing. Cardiovascular: Negative for chest pain and leg swelling. Gastrointestinal: Negative for abdominal pain, diarrhea, nausea and vomiting. Genitourinary: Negative for dysuria and urgency. Skin: Negative for rash. Neurological: Positive for dizziness. Negative for loss of consciousness, weakness and headaches. +shaky Psychiatric/Behavioral: Negative for hallucinations and suicidal ideas. All other systems reviewed and are negative. Active Problems: Patient Active Problem List Diagnosis ??? Syncope ??? Palpitations ??? Tachycardia ??? Achrochordon ??? Allergic rhinitis ??? Anxiety ??? Insomnia ??? Migraine ??? Obesity ??? PMS (premenstrual syndrome) ??? Restless legs syndrome (RLS) ??? Gall bladder disease ??? Gastroesophageal reflux disease without esophagitis ??? Annual physical exam Medical History: Past Medical History: Diagnosis Date ??? Anxiety ??? Depression ??? GERD (gastroesophageal reflux disease) ??? Migraine ??? Palpitations ??? Syncope ??? Tachycardia Surgical History: Past Surgical History: Procedure Laterality Date ??? ANKLE FRACTURE SURGERY Family History: Family History Problem Relation Name Age of Onset ??? CHF Maternal Grandmother ??? Open Heart Maternal Grandmother ??? CHF Paternal Grandmother Social History: Social History Socioeconomic History ??? Marital status: Single Spouse name: Not on file ??? Number of children: Not on file ??? Years of education: Not on file ??? 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 Financial resource strain: Not on file ??? Food insecurity Worry: Not on file Inability: Not on file ??? Transportation needs Medical: Not on file Non-medical: Not on file Tobacco Use ??? Smoking status: Never Smoker ??? Smokeless tobacco: Never Used Substance and Sexual Activity ??? Alcohol use: No Frequency: Never ??? Drug use: No ??? Sexual activity: Not on file Lifestyle ??? Physical activity Days per week: Not on file Minutes per session: Not on file ??? Stress: Not on file Relationships ??? Social connections Talks on phone: Not on file Gets together: Not on file Attends quaker service: Not on file Active member of club or organization: Not on file Attends meetings of clubs or organizations: Not on file Relationship status: Not on file ??? Intimate partner violence Fear of current or ex partner: Not on file Emotionally abused: Not on file Physically abused: Not on file Forced sexual activity: Not on file Other Topics Concern ??? Exercise Yes ??? Special Diet No ??? Caffeine Concern No Social History Narrative ??? Not on file Medications: Current Outpatient Medications: ??? ALPRAZolam 0.25 MG tablet, Take 1 tablet (0.25 mg total) by mouth nightly as needed for Sleep.,Disp: 30 tablet, Rfl: 0 ??? venlafaxine XR 37.5 MG 24 hr capsule, Take 1 capsule (37.5 mg total) by mouth daily., Disp: 90 capsule, Rfl: 3 ??? dilTIAZem CD 180 MG 24 hr capsule, Take 1 capsule (180 mg total) by mouth daily., Disp: 90 capsule, Rfl: 1 ??? Etonogestrel (NEXPLANON SC), Nexplanon, Disp: , Rfl: Allergies: Allergies Allergen Reactions ??? Apple Nausea and Vomiting ??? Lactase Other (see comment) vomiting--drinds small amounts without problems Vitals: Filed Vitals: 11/13/20 0807 BP: 124/80 Pulse: 91 Resp: 17 Temp: 97.5 ??F (36.4 ??C) SpO2: 99% Weight: 121.1 kg (267 lb) Height: 5' 5 (1.651 m) Body mass index is 44.43 kg/m??. PE: Physical Exam Vitals signs and nursing note reviewed. Constitutional: General: She is not in acute distress. Appearance: Normal appearance. She is well-developed. She is morbidly obese. Comments: VSS HENT: Head: Normocephalic and atraumatic. Nose: Nose normal. Mouth/Throat: Mouth: Mucous membranes are moist. Pharynx: Oropharynx is clear. No oropharyngeal exudate or posterior oropharyngeal erythema. Eyes: Extraocular Movements: Extraocular movements intact. Conjunctiva/sclera: Conjunctivae normal. Pupils: Pupils are equal, round, and reactive to light. Neck: Musculoskeletal: Normal range of motion and neck supple. No neck rigidity or muscular tenderness. Cardiovascular: Rate and Rhythm: Normal rate and regular rhythm. Pulses: Normal pulses. Heart sounds: Murmur (2/6 systolic) present. No friction rub. No gallop. Pulmonary: Effort: Pulmonary effort is normal. No respiratory distress. Breath sounds: Normal breath sounds. Abdominal: General: There is no distension. Palpations: Abdomen is soft. Tenderness: There is no abdominal tenderness. Musculoskeletal: Normal range of motion. Skin: General: Skin is warm and dry. Neurological: Mental Status: She is alert and oriented to person, place, and time. Psychiatric: Mood and Affect: Mood and affect normal. Judgment: Judgment normal. Diagnoses/Impression: Encounter Diagnose(s) ICD-10-CM ICD-9-CM SNOMED CT(R) 1. Annual physical exam Z00.00 V70.0 PATIENT ENCOUNTER STATUS COMPREHENSIVE METABOLIC PANEL CBC W/DIFF AUTOMATED HEMOGLOBIN, GLYCOSYLATED LIPID PANEL TSH W/REFLEX THYROXINE, FREE (FT4) TRIIODOTHYRONINE TOTAL , TT-3 2. PMS (premenstrual syndrome) N94.3 625.4 PREMENSTRUAL TENSION SYNDROME 3. Gastroesophageal reflux disease without esophagitis K21.9 530.81 GASTROESOPHAGEAL REFLUX DISEASEWITHOUT ESOPHAGITIS 4. Anxiety F41.9 300.00 ANXIETY venlafaxine XR 37.5 MG 24 hr capsule ALPRAZolam 0.25 MG tablet 5. Tachycardia R00.0 785.0 TACHYCARDIA Recommendations and Plan: -we refilled pt's xanax and Effexor. Cont regimen as is -CSA obtained -pt is a healthy adult -counseled pt on the importance of well balanced diet, good water intake, and regular exercise -The risks and benefits of immunizations were discussed and immunizations recommended per ACIP guidelines. -colorectal CA screening is due at age 50 -mammogram is due at age 40 -pap smear is n/a -most recent labs reviewed -routine labs ordered -new vs old murmur, will cont to monitor -f/u in 1-2 weeks -pt verbalizes their understanding and is in agreement with the plan Orders Placed This Encounter Medications ??? Etonogestrel (NEXPLANON SC) ??? venlafaxine XR 37.5 MG 24 hr capsule ??? ALPRAZolam 0.25 MG tablet Scribe Attestation: ???By signing below, IJuliana attest that this documentation has been prepared in the presence of and under the direction of Albert Ruby MD. Provider Attestation: ???I, Albert Ruby MD, personally performed the services described in thisdocumentation. All medical record entries made by the scribe were at my direction and in my presence. I have reviewed the chart and agree that the record reflects my personal performance and is accurate and complete.?? 11/13/20 8:28 AM Juliana Ny 11/13/2020 Cosigned by Albert Ruby MD at 11/13/2020 10:53 AM TABLET REPAIR ET REPAIR ET REPAIR documented in this encounter Plan of Treatment Not on file documented as of this encounter Procedures Procedure Name Priority Date/Time Associated Diagnosis Comments TSH W/REFLEX Routine 11/13/2020 8:40 AM TABLET REPAIR Annual physical exam HEMOGLOBIN, GLYCOSYLATED Routine 11/13/2020 8:40 AM TABLET REPAIR Annual physical exam COMPREHENSIVE METABOLIC PANEL Routine 11/13/2020 8:40 AM TABLET REPAIR Annual physical exam LIPID PANEL Routine 11/13/2020 8:40 AM TABLET REPAIR Annual physical exam CBC W/DIFF AUTOMATED Routine 11/13/2020 8:40 AM TABLET REPAIR Annual physical exam VENIPUNC ARM DRAW Routine 11/13/2020 8:3 2 AM TABLET REPAIR Annual physical exam documented in this encounter Results * TSH W/REFLEX (11/13/2020 8:40 AM TABLET REPAIR) TSH 1.082 0.358 - 3.740 uIU/ML 11/13/2020 7:54 PM TABLET REPAIR [facility] 11/13/2020 8:40 AM TABLET REPAIR us Albert Ruby MD LABORATORY Final Result -[facility] [address] [place] [address], * LIPID PANEL (11/13/2020 8:40 AM TABLET REPAIR) CHOLESTEROL 120 MG/DL 11/13/2020 7:54 PM [facility] Comment:DESIRABLE: <200 TRIGLYCERIDES 32 MG/DL 11/13/2020 7:54 PM [facility] Comment:<150 NORMAL HDL 52 >49 MG/DL 11/13/2020 7:54 PM [facility] LDL-C 62 MG/DL 11/13/2020 7:54 PM [facility] Comment:<100 OPTIMAL VLDL CALCULATION 6 MG/DL 11/14/19 7:54 PM [facility] Comment:REFERENCE RANGE NOT ESTABLISHED CHOL/HDL RATIO 2.3 11/13/2020 7:54 PM [facility] Comment:REFERENCE RANGE NOT ESTABLISHED LD-1/LD-2 RATIO 1.2 7:54 PM [facility] Comment:REFERENCE RANGE NOT ESTABLISHED NON HDL CHOLESTEROL 68 MG/DL 11/13/2020 7:54 PM [facility] Comment:REFERENCE RANGE NOT ESTABLISHED 11/13/2020 8:40 AM TABLET REPAIR Albert Ruby MD LABORATORY Final Result [facility] [address] [place] [address], * HEMOGLOBIN, GLYCOSYLATED (11/13/2020 8:40 AM TABLET REPAIR) HGB A1C 5.0 3.80 - 5.60 % 11/14/2020 9:32 AM TABLET REPAIR [facility] ESTIMATED AVG GLUCOSE 97 74 - 106 MG/DL 11/14/2020 9:32 AM [facility]IR [facility] 11/13/2020 8:40 AM TABLET REPAIR us Albert Ruby MD LABORATORY Final Result [facility] [address] [place] [address], * (ABNORMAL) CBC W/DIFF AUTOMATED (11/13/2020 8:40 AM TABLET REPAIR) WBC 14.6(H) 4.0 - 10.8 x10'3/uL 11/13/2020 7:49 PM TABLET REPAIR [facility] RBC 4.85 4.10 - 5.40 x10'6/uL 11/13/2020 7:49 PM TABLET REPAIR [facility] HGB 11.8(L) 12.0 - 16.0 G/DL 11/13/2020 7:49 PM [facility] HCT 38.0 36.0 - 47.0 % 11/13/2020 7:49 PM TABLET REPAIR [facility] MCV 78.4 78.0 - 100.0 FL 11/13/2020 7:49 PM [facility] MCH 24.3(L) 27.0 - 31.0 PG 11/13/2020 7:49 PM [facility] MCHC 31.1(L) 33.0 - 36.0 G/DL 11/13/2020 7:49 PM [facility] RDW 16.5(H) 11.5 - 14.5 % 11/13/2020 7:49 PM [facility] PLT 365(H) 150 - 350 x10'3/uL 11/13/2020 7:49 PM [facility] MPV 12.8(H) 7.4 - 10.4 FL 11/13/2020 7:49 PM [facility] DIFFERENTIAL TYPE AUTOMATED DIFFERENTIAL 11/13/2020 7:50 PM [facility] NEUTROPHILS % 62.5 % 11/13/2020 7:50 PM TABLET REPAIR [facility] LYMPHOCYTES % 30.4 % 11/13/2020 7:50 PM TABLET REPAIR [facility] MONOCYTES % 5.7 % 11/13/2020 7:50 PM TABLET REPAIR [facility] EOSINOPHILS % 1.2 % 11/13/2020 7:50 PM TABLET REPAIR [facility] BASOPHILS % 0.2 % 11/13/2020 7:50 PM TABLET REPAIR [facility] ABS. NEUTROPHILS 9.10(H) 1.60 - 8.30 x10'3/uL 11/13/2020 7:50 PM TABLET REPAIR [facility] ABS. LYMPHOCYTES 4.43 0.80 - 4.70 x10'3/uL 11/13/2020 7:50 PM [facility] ABS. MONOCYTES 0.83 0.00 - 1.50 x10'3/uL 11/13/2020 7:50 PM TABLET REPAIR [facility] ABS. EOSINOPHILS 0.18 0.00 - 0.40 x10'3/uL 11/13/2020 7:50 PM TABLET REPAIR [facility] ABS. BASOPHILS 0.03 0.00 - 0.20 x10'3/uL 11/13/2020 7:50 PM [facility] 11/13/2020 8:40 AM TABLET REPAIR Albert Ruby MD LABORATORY Final Result [facility] [address] [place] [address], * (ABNORMAL) COMPREHENSIVE METABOLIC PANEL (11/13/2020 8:40 AM TABLET REPAIR) [facility] SODIUM S/P/B 147(H) 136 - 145 MMOL/L 11/13/2020 7:54 PM TABLET REPAIR [facility] POTASSIUM S/P/B 4.0 3.5 - 5.1 MMOL/L 11/13/2020 7:54 PM [facility] CHLORIDE S/P/B 108(H) 98 - 107 MMOL/L 11/13/2020 7:54 PM [facility] CO2 23.6 21 - 32 MMOL/L 11/13/2020 7:54 PM [facility] GLUCOSE 76 70 - 99 MG/DL 11/13/2020 7:54 PM [facility] BUN 9 6 - 24 MG/DL 11/13/2020 7:54 PM [facility] CREATININE S/P/B 0.79 0.55 - 1.02 MG/DL 11/13/2020 7:54 PM [facility] CALCIUM S/P/B 9.2 8.4 - 10.5 MG/DL 11/13/2020 7:54 PM [facility] BILIRUBIN TOTAL S/P/B 0.3 0.2 - 1.0 MG/DL 11/13/2020 7:54 PM [facility] ALKALINE PHOSPHATASE S/P/B 112 52 - 144 U/L 11/13/2020 7:54 PM [facility] AST 16 15 - 37 U/L 11/13/2020 7:54 PM [facility] ALT 26 14 - 59 U/L 11/13/2020 7:54 PM [facility] TOTAL PROTEIN S/P/B 7.9 6.4 - 8.2 G/DL 11/13/2020 7:54 PM [facility] ALBUMIN S/P/B 3.9 3.4 - 5.0 G/DL 11/13/2020 7:54 PM [facility] ANION GAP 15.4(H) 5 - 15 MMOL/L 11/13/2020 7:54 PM [facility] Comment:REFERENCE RANGE NOT ESTABLISHED OSMOLALITY (CALC) 301 MOSM/KG 11/13/2020 7:54 PM TABLET REPAIR [facility] Comment:REFERENCE RANGE NOT ESTABLISHED EGFR NON-AFR. AMER. >90 >90 ML/MIN/1 .73 M2 11/13/2020 7:54 PM TABLET REPAIR [facility] EGFR AFR. AMER. >90 >90 ML/MIN/1 .73 M2 11/13/2020 7:54 PM TABLET REPAIR [facility] GFR NOTES THE ESTIMATED GFR IS CALCULATED USING THE 2009 CKD-EPI EQUATION. THE FOLLOWING CATEGORIES FOR GRADING RENAL FUNCTION ARE RECOMMENDED BY THE INTERNATIONAL SOCIETY OF NEPHROLOGY (KDIGO 2012 CLINICAL PRACTICE GUIDELINE). 11/13/2020 7:54 PM TABLET REPAIR [facility] Comment: G1,NORMAL OR HIGH: >89 ml/min/1.73 m2 G2,MILDLY DECREASED: 60-89 ml/min/1.73 m2 G3A,MILDLY TO MODERATELY DECREASED: 45-59 ml/min/1.73 m2 G3B,MODERATELY TO SEVERELY DECREASED: 30-44 ml/min/1.73 m2 G4,SEVERELY DECREASED: 15-29 ml/min/1.73 m2 G5,KIDNEY FAILURE: <15 ml/min/1.73 m2 11/13/2020 8:40 AM TABLET REPAIR Albert Ruby MD LABORATORY Final Result [facility] [address] [place] [address], documented in this encounter Visit Diagnoses Diagnosis Annual physical exam- Primary Routine general medical examination at a health care facility PMS (premenstrual syndrome) Premenstrual tension syndromes Gastroesophageal reflux disease without esophagitis Esophageal reflux Anxiety Anxiety state, unspecified Tachycardia Tachycardia, unspecified documented in this encounter Additional Health Concerns Assessment Noted Time PHQ-9 Depression Total Score: 10 021 8:11 AM TABLET REPAIR documented as of this encounter Care Teams Bottle Cleaner Relationship Specialty Start Date End Date Albert Ruby MD [address] [facility] [address] [place], [place] [id number] PCP - General FAMILY PRACTICE 05/16/18 Tremayne Shi MD [facility] [address] [place], [place] [id number] EP Administrative Officer CARDIOVASCULAR DISEASE 08/15/18 documented as of this encounter
--- OUTSIDE RECORDS SUMMARY | 2024-08-27 04:45 | XMS_ITS | Encounter Summary ---
Author Organization [facility] Address [address] [place] [address]. [place], [place] [address] [place] [address] Care Team Providers Care Printing Bindery Assistant Name Role Phone Vania Brown MD Primary Care Provider [phone] Bailey Izaguirre MD Unavailable [phone] Reason for Referral * Imaging (Routine) - Closed Specialty Diagnoses / Procedures Referred By Contac t Referred To Contact Diagnoses Inappropriate sinus node tachycardia ([facility]/HCC [facility]) Procedures CLINIC - HOLTER MONITOR - ECG UP TO 48 HRS,COMPLETE Bailey Izaguirre MD [facility]. [facility] [address] [place] [address] Phone: tel: fax: Bailey Izaguirre MD [facility]. [facility] [address] [place] [address] Phone: tel: fax: Referral ID Status Reason Start Date Expiration Date Visits Re quested Visits Authorized [id number] Closed 11/17/2020 12/18/2021 1 1 ACY DIRECTOR Reason for Visit * Reason Comments Palpitations 6 month check Syncope Encounter Details Date Type Department Care Team (Late st Contact Info) Description 11/17/2020 10:30 AM PRIVACY DIRECTOR Office Visit [facility]a [facility]un [facility], [facility] [address] [place] [address] Bailey Izaguirre MD [address] [phone] Palpitations (6 month check ); Syncope Social History Tobacco Use Types Packs/Day Years [...] have Coronavirus / COVID-19? No / Unsure 11/17/2020 10:06 AM PRIVACY DIRECTOR documented as of this encounter Last Filed Vital Signs Vital Sign Reading Time Taken Comments Blood Pressure 160/90 11/17/2020 10:09 AM PRIVACY DIRECTOR Pulse 132 11/17/2020 10:09 AM PRIVACY DIRECTOR Temperature - - Respiratory Rate - - Oxygen Saturation 100% 11/17/2020 10:09 AM PRIVACY DIRECTOR Inhaled Oxygen Concentration - - Weight 121.6 kg (268 lb) 11/17/2020 10:09 AM PRIVACY DIRECTOR Height 165.1 cm (5' 5 ) 11/17/2020 10:09 AM PRIVACY DIRECTOR Body Mass Index 44.6 11/17/2020 10:09 AM PRIVACY DIRECTOR documented in this encounter Patient Instructions * Patient Instructions* Tracy Guy - 11/17/2020 10:30 AM PRIVACY DIRECTOR Patient Education Patient Education Tachycardia Discharge Instructions About this topic Tachycardia is another word for a fast heartbeat. Your heart may beat faster than normal after you exercise. It can also beat faster than normal if you are stressed, worried, or afraid. Some kinds ofdrugs, caffeine, and tobacco can also give you a fast heartbeat. When the heart rate is fast at rest or usually fast with normal activities it could be a sign of a problem. What care is needed at home? ?? Ask your doctor what you need to do when you go home. Make sure you understand everything the doctor says. This way you will know what you need to do. ?? Check with your doctor before taking any edoj-qdv-gdxilba drugs, nutritional supplements, or cold and allergy drugs. ?? Learn how to check your pulse. What follow-up care is needed? Your doctor may ask you to make visits to the office to check on your progress. Be sure to keep these visits. What drugs may be needed? The doctor may order drugs to: ?? Keep your heartbeat normal and steady ?? Treat the condition that causes your fast heartbeat Will physical activity be limited? Ask your doctor what activities or exercises are good for you. Exercise is good for your overall health. What problems could happen? ?? Heart failure ?? Chest pain ?? Heart attack ?? Stroke ?? Damage to the heart, brain, or other organs ?? Sudden What can be done to prevent this health problem? ?? Limit drinks with caffeine. You should avoid alcohol, energy drinks, and dcie-bib-gnpgkdc stimulants. ?? Learn to manage stress. Use relaxation methods like reflection, deep breathing, and muscle relaxation. Things like yoga and elvia chi are also good. When do I need to call the doctor? Activate the emergency medical system right away if you have signs of a heart attack or stroke. Call 911 in the [place] or [place]. The sooner treatment begins, the better your chances for recovery. Call for emergency help right away if you have: ?? Signs of heart attack: ? Chest pain ? Trouble breathing ? Fast heartbeat ? Feeling dizzy ?? Signs of stroke: ? Sudden numbness or weakness of the face, arm, or leg, especially on one side of the body ? Sudden confusion, trouble speaking, or understanding ? Sudden trouble seeing in one or both eyes ? Sudden trouble walking, dizziness, loss of balance or coordination ? Sudden severe headache with no known cause Call your doctor if you have: ?? Other problems with breathing. These include change in shortness of breath, wheezing, the need to sleep sitting up to breathe ?? Blue or tidwell skin color ?? Very bad sweating ?? Pain, pressure, tightness, or heaviness in your chest, arm, neck, or jaw ?? Very fast heartbeat ?? Trouble breathing with exercise Teach Back: Helping You Understand The Teach Back Method helps you understand the information we are giving you. After you talk with the staff, tell them in your own words what you learned. This helps to make sure the staff has described each thing clearly. It also helps to explain things that may have been confusing. Before going home, make sure you are able to do these: ?? I can tell you about my condition. ?? I can tell you what changes I need to make with my diet, exercise, or drugs. ?? I can tell you what I will do if I have signs of a heart attack or stroke. Where can I learn more? [employer] http://www.heart.org/HEARTORG/Conditions/Arrhythmia/AboutArrhythmia/Tachycardia- Hiai-Njycs-Dwcb_ODL_538142_Jfxhhcv.jsp#.CGMbu5kiWAP Better Health Channel https://www.betterhealth.[place].gov.au/health/conditionsandtreatments/heart-arrhyth snny-coe-rtoctjamsemn Last Reviewed Date 2018-07-02 Consumer Information Use and Disclaimer This information is not specific medical advice and does not replace information you receive from your health care provider. This is only a brief summary of general information. It does NOT include all information about conditions, illnesses, injuries, tests, procedures, treatments, therapies, discharge instructions or life-style choices that may apply to you. You must talk with your health care provider for complete information about your health and treatment options. This information should not be used to decide whether or not to accept your health care provider???s advice, instructions or recommendations. Only your health care provider has the knowledge and training to provide advice that is right for you. Copyright Copyright ?? 2020 [employer]. and its affiliates and/or licensors. All rights reserved. ACY DIRECTOR documented in this encounter Progress Notes * Bailey Izaguirre MD - 11/17/2020 10:30 AM CST Images from the original note were not included. [place], [place] [address] Cardiac Electrophysiology Outpatient Progress Note Patient name: Pranay Gonzalez Primary Care Provider: VANIA BROWN MD Chief Complaint: Palpitations History of Present Illness Pranay Gonzalez is a 20-year-old female with a history of obesity, and syncope referred for follow up evaluation of palpitations. She was seen initially in clinic on 08/23/18 and started on Corlanor in September of 2018. She did not find relief of her symptoms with metoprolol prior to this medication. She continued to have intermittent palpitions on the Corlanor so that was eventually discontinued for diliazem. She is here for follow up of her symptoms and IST today. She still has palpitation symptoms. Otherwise she is doing well. Her heart rate has been elevated above baseline recently as well. She reports no syncope. Assessment and Plan Mrs. Gonzalez is a 20-year-old female with a history of obesity here today for follow up of palpitations/tachycardia. 1. Inappropriate sinus tachycardia: Prior workup was unrevealing for evidence of structural heart disease, anemia, or metabolic disorders causing her heart rate variations. ECG today revealed sinus tachycardia. -Continue conservative measures with adequate hydration, would continued to watch intake salt givenborderline hypertension. - Continue diltiazem CD 180 mg daily. I requested she repeat a 24 hour holter to reassess rates on therapy. IF still elevated we will increase to 240 mg daily. 2. History of Syncope: No further episodes. No structural heart disease. Possibly vasovagal in etiology. - If recurrence will consider Tilt or loop recorder placement. 3. Anxiety: Continue venlafaxine. 4. Elevated BP without hypertension: BP now elevated today but recently normal at visits. Will potentially be increasing diltiazem as above. Follow up in six months History Review of Systems Constitutional: Negative. HENT: Negative. Eyes: Negative. Respiratory: Negative. Cardiovascular: Positive for palpitations. Gastrointestinal: Negative. Genitourinary: Negative. Musculoskeletal: Negative. Skin: Negative. Neurological: Negative. Endo/Heme/Allergies: Negative. Current Problems: Patient Active Problem List Diagnosis ??? Syncope ??? Palpitations ??? Tachycardia ??? Achrochordon ??? Allergic rhinitis ??? Anxiety ??? Insomnia ??? Migraine ??? Obesity ??? PMS (premenstrual syndrome) ??? Restless legs syndrome (RLS) ??? Gall bladder disease ??? Gastroesophageal reflux disease without esophagitis Past Medical History: Past Medical History: Diagnosis Date ??? Anxiety ??? Depression ??? GERD (gastroesophageal reflux disease) ??? Migraine ??? Palpitations ??? Syncope ??? Tachycardia Past Surgical History: Past Surgical History: Procedure Laterality Date ??? ANKLE FRACTURE SURGERY Social History: Social History Tobacco Use ??? Smoking status: Never Smoker ??? Smokeless tobacco: Never Used Substance Use Topics ??? Alcohol use: No Frequency: Never ??? Drug use: No Family History: Family History Problem Relation Name Age of Onset ??? CHF Maternal Grandmother ??? Open Heart Maternal Grandmother ??? CHF Paternal Grandmother Allergies: Allergies Allergen Reactions ??? Apple Nausea and Vomiting ??? Lactase Other (see comment) vomiting--drinds small amounts without problems Current Medications: Patient's Medications New Prescriptions No medications on file Previous Medications ALPRAZOLAM 0.25 MG TABLET Take 1 tablet (0.25 mg total) by mouth nightly as needed for Sleep. DILTIAZEM CD 180 MG 24 HR CAPSULE Take 1 capsule (180 mg total) by mouth daily. ETONOGESTREL (NEXPLANON SC) Nexplanon VENLAFAXINE XR 37.5 MG 24 HR CAPSULE Take 1 capsule (37.5 mg total) by mouth daily. Modified Medications No medications on file Discontinued Medications No medications on file Physical Exam Filed Vitals: 11/17/20 1009 BP: (!) 160/90 Pulse: 132 SpO2: 100% Weight: 121.6 kg (268 lb) Height: 5' 5 (1.651 m) Physical Exam: In general, Mrs. Gonzalez laying on the examination table in no acute distress. Appears stated age. Mucous membranes moist. No oropharyngeal exudates. Sclera anicteric. Neck is supple. Normal carotid upstroke. No carotid bruits. JVP is not elevated at 45 degrees. Cardiac exam reveals tachycardia, butnormal rhythm. Normal S1 and S2 without murmurs, rubs, gallops. Radial pulses are 2+. Lungs clear to auscultation bilaterally without wheezes, rales, or rhonchi. Abdomen is soft, nontender, and non distended with normoactive bowel sounds. There is no guarding or rebound tenderness. No abdominal bruit.There are no skin lesions or significant ecchymosis. No lower extremity edema. Her mood is normalwith a normal affect and she is alert and oriented x 3. Relevant Data Reviewed: Labs: Lab Results Component Value Date/Time NA 147 (H) 11/13/2020 08:40 AM K 4.0 11/13/2020 08:40 AM CR 0.79 11/13/2020 08:40 AM AST 16 11/13/2020 08:40 AM ALT 26 11/13/2020 08:40 AM HGB 11.8 (L) 11/13/2020 08:40 AM HCT 38.0 11/13/2020 08:40 AM PLT 365 (H) 11/13/2020 08:40 AM WBC 14.6 (H) 11/13/2020 08:40 AM TROP <0.015 04/10/2020 10:49 PM TSH 1.082 11/13/2020 08:40 AM Echo: 05/2018: Normal LV size and function EKG: Sinus tachycardia Bailey Izaguirre MD [facility] Cardiac Electrophysiology ; ext. [phone] Pager: [phone] 11/18/2020 10:10 AM documented in this encounter Plan of Treatment Not on file documented as of this encounter Procedures Procedure Name Priority Date/Time Associated Diagnosis Comments ELECTROCARDIOGRAM (NON MIDMARK ACQUIRED) Routine 11/17/2020 10:17 AM PRIVACY DIRECTOR Inappropriate sinus node tachycardia documented in this encounter Results * ELECTROCARDIOGRAM (11/17/2020 10:17 AM PRIVACY DIRECTOR) 11/17/2020 10:1 7 AM PRIVACY DIRECTOR Narrative [facility] - 11/17/2020 4:25 PM PRIVACY DIRECTOR ?[facility], O? [place] ? Test Date: ?2020-11-17 Pat Name: ? PRANAY LISA ?Department: ? Room: ? Gender: ? Female ? Feed Research Aide: ?? : ?2000 ? Requested By: BAILEY GARCIAHION Order Number: [id number] ?Reading MD: ?? Bailey Hushion ? Measurements Intervals ?[place] ? Rate: ? 112 ?P: ?72 DC: ? 131 ?QRS: ?72 QRSD: ? 94 ? T: ?-8 QT: ? 282 ? QTc: ?386 ? Interpretive Statements SINUS TACHYCARDIA NONSPECIFIC ST & T-WAVE ABNORMALITY ACY DIRECTOR Procedure Note Bailey Izaguirre MD - 11/17/2020 [facility], O? [facility] Test Date: 2020-11-17 Pat Name: PRANAY GONZALEZ Department: Room: Gender: Female Feed Research Aide: : 2000 Requested By: BAILEY IZAGUIRRE Order Number: [id number] Reading MD: Bailey Izaguirre Measurements Intervals [place] Rate: 112 P: 72 DC: 131 QRS: 72 QRSD: 94 T: -8 QT: 282 QTc: 386 Interpretive Statements SINUS TACHYCARDIA NONSPECIFIC ST & T-WAVE ABNORMALITY ACY DIRECTOR us Bailey Izaguirre MD PROCEDURES-ORDERABLE NO SUDHA RGE Final Result Performing Organization Address City/[facility]/ZIP Co de Phone Number [facility] * CLINIC - HOLTER MONITOR - ECG UP TO 48 HRS,COMPLETE (11/17/2020) us Bailey Izaguirre MD CV VASCULAR ORDERABLES Frances l Result [facility] documented in this encounter Visit Diagnoses Diagnosis Inappropriate sinus node tachycardia (CMS/HCC HHS/HCC)- Primary Other specified cardiac dysrhythmias Palpitations Blood pressure elevated without history of HTN Elevated blood pressure reading without diagnosis of hypertension documented in this encounter Additional Health Concerns Assessment Noted Time PHQ-9 Depression Total Score: 10 021 8:11 AM PRIVACY DIRECTOR documented as of this encounter Care Teams Printing Bindery Assistant Relationship Specialty Start Date End Date Vania Brown MD [address] [facility] [address] [place] [address] PCP - General FAMILY PRACTICE 05/16/18 Bailey Izaguirre MD Three [facility]. [facility] [address] [place] [address] EP Directory Compiler CARDIOVASCULAR DISEASE 08/15/18 documented as of this encounter
--- OUTSIDE RECORDS SUMMARY | 2024-08-27 04:45 | XMS_ITS | Encounter Summary ---
Author Organization [facility] Address [address] [place] [address]. [place], [place] [address] [place] [address] Care Team Providers Care Rail Bonder Name Role Phone Albert Ruby MD Primary Care Provider [phone] Tremayne Shi MD Unavailable [phone] Encounter Details Date Type Department Care Team (Late st Contact Info) Description 12/15/2021 [employer] Message Enc [facility] Family and [facility] Medicine - [place] [address] [place] [address] Albert Ruby MD [address] [address] Medication refills Social History Tobacco Use Types Packs/Day Years [...] 3, please move on to questions 3-9 2 06/17/2021 Comments No Sex and Gender Information Value [...] Assessment Noted Time PHQ-9 Depression Total Score: 8 06/17/20 21 1:36 PM CDT documented as of this encounter Care Teams Rail Bonder Relationship Specialty Start Date End Date Albert Ruby MD [address] [place] [address] PCP - General FAMILY PRACTICE 05/16/18 Tremayne Shi MD [facility] [address] [place] [address] EP Mobile Security Architect CARDIOVASCULAR DISEASE 08/15/18 documented as of this encounter
--- OUTSIDE RECORDS SUMMARY | 2024-08-27 04:45 | XMS_ITS | Encounter Summary ---
Author Organization [facility] Address [address] [place] [address]. [place], [place] [address] [place] [address] Care Team Providers Care Restorative Rehab Aide Name Role Phone Albert Ruby MD Primary Care Provider [phone] Tremayne Shi MD Unavailable [phone] Encounter Details Date Type Department Care Team (Late st Contact Info) Description 11/16/2020 Orders Only [facility] [place] [address] Carrington Murray MD Social History Tobacco Use Types Packs/Day Years [...] COVID-19? No / Unsure 11/17/2020 10:06 AM ENGINEERING DESIGN SUPERVISOR documented as of this encounter Plan of Treatment Not on file documented as of this encounter Visit Diagnoses Not on filedocumented in this encounter Additional Health Concerns Assessment Noted Time PHQ-9 Depression Total Score: 10 11/13/ 021 8:11 AM ENGINEERING DESIGN SUPERVISOR documented as of this encounter Care Teams Restorative Rehab Aide Relationship Specialty Start Date End Date Albert Ruby MD [address] [address] [place] [address] PCP - General FAMILY PRACTICE 05/16/18 [facility]ayne Shi MD [facility] [address] [place], [place] [id number] EP Quiller Tender CARDIOVASCULAR DISEASE 08/15/18 documented as of this encounter
--- OUTSIDE RECORDS SUMMARY | 2024-08-27 04:45 | XMS_ITS | Encounter Summary ---
Author Organization [facility] Address [address] [place] [address]. [place] [address] Care Team Providers Care Maintenance Job Titles Name Role Phone Albert Ruby MD Primary Care Provider [phone] Tremayne Shi MD Unavailable [phone] Encounter Details Date Type Department Care Team (Latest Contact Info) Description 06/17/2021 Travel Social History Tobacco Use Types Packs/Day [...] have Coronavirus / COVID-19? No / Unsure 06/17/2021 12:35 PM CDT documented as of this encounter Plan of Treatment Not on file documented as of this encounter Visit Diagnoses Not on filedocumented in this encounter Additional Health Concerns Assessment Noted Time PHQ-9 Depression Total Score: 8 06/17/20 21 1:36 PM CDT documented as of this encounter Care Teams Maintenance Job Titles Relationship Specialty Start Date End Date Albert Ruby MD [address] [place] [address] [address] [place] [address] PCP - General FAMILY PRACTICE 05/16/18 Tremayne Shi MD [facility]. [facility] [address] [place] [address] EP Director Of Product Marketing CARDIOVASCULAR DISEASE 08/15/18 documented as of this encounter
--- OUTSIDE RECORDS SUMMARY | 2024-08-27 04:45 | XMS_ITS | Encounter Summary ---
Author Organization [facility] Address [address] [place] [address]. [place], [place] [address] [place] [address] Care Team Providers Care Rate Quoting Operator Name Role Phone Albert Ruby MD Primary Care Provider [phone] Tremayne Shi MD Unavailable [phone] Encounter Details Date Type Department Care Team (Late st Contact Info) Description 04/03/2021 [employer] Message Enc [facility] Medical Group Family and Sports Medicine - [place] [address] [place] [address] Albert Ruby MD [address] [address] RE: Referral Request Social History Tobacco Use Types Packs/Day [...] Depression Total Score: 10 021 8:11 AM OPERATING ROOM NURSE documented as of this encounter Care Teams Rate Quoting Operator Relationship Specialty Start Date End Date Albert Ruby MD [address] [place] [address] PCP - General FAMILY PRACTICE 05/16/18 Tremayne Shi MD [facility] [place] [address] EP Commercial Representative CARDIOVASCULAR DISEASE 08/15/18 documented as of this encounter
--- OUTSIDE RECORDS SUMMARY | 2024-08-27 04:45 | XMS_ITS | Encounter Summary ---
Author Organization [facility] Address [address] [place] [address]. [place], [place] [address] [place] [address] Care Team Providers Care Legal Arbitrator Name Role Phone Albert Ruby MD Primary Care Provider [phone] Tremayne Shi MD Unavailable Reason for Visit * Reason Onset Date Comments Refill Request 04/06/2021 metoprolol Encounter Details Date Type Department Care Team (Late st Contact Info) Description 04/06/2021 Telephone [facility] [facility] THREE [facility], [address] [address] Raven Daley CMA Refill Request (metoprolol) Social History Tobacco Use Types Packs/Day Years [...] as of this encounter Progress Notes * Raven Daley CMA - 04/06/2021 4:31 PM CDT Left message for pt, provider approved refill of metoprolol. Need to know which kind from pt tartarte or succinate? No record in chart. Provider would also like to to stop diltiazem when starting metoprolol. ki * Raven Daley CMA - 04/06/2021 4:26 PM CDT ----- Message from Laura Finley sent at 04/06/2021 10:00 AM CDT ----- Regarding: Medication Questions Contact: Mackenzie, I recently was in the hospital and I was given metetropolol 50mg for my high blood pressure and high heart rate, that seemed to work much better than my current medication. The hospitalist told me tocontact my it recruiter to see if he would like me to switch medications. Thank you. documented in this encounter Plan of Treatment Not on file documented as of this encounter Visit Diagnoses Not on filedocumented in this encounter Additional Health Concerns Assessment Noted Time PHQ-9 Depression Total Score: 10 11/13/ 021 8:11 AM MANAGER DATA CENTER documented as of this encounter Care Teams Legal Arbitrator Relationship Specialty Start Date End Date Albert Ruby MD [address] [place] [address] [address] [place] [address] PCP - General FAMILY PRACTICE 05/16/18 Tremayne Shi MD [facility] [address] [place] [address] EP Baseball Club Manager CARDIOVASCULAR DISEASE 08/15/18 documented as of this encounter
--- OUTSIDE RECORDS SUMMARY | 2024-08-27 04:45 | XMS_ITS | Encounter Summary ---
Author Organization [facility] Address [address] [place] [address]. [place] [address] [place] [address] Care Team Providers Care [employer] Special Education Teacher Name Role Phone Albert Ruby MD Primary Care Provider [phone] Tremayne Shi MD Unavailable [phone] Reason for Visit * Reason Comments Physical Annual physical exam and refills Encounter Details Date Type Department Care Team (Late st Contact Info) Description 07/01/2022 10:00 AM CDT Office Visit [facility] Family and Sports Medicine - [place] [address] [place] [address] Albert Ruby MD [address] [facility] [address] [place] [address] Physical (Annual physical exam and refills/) Social History Tobacco Use Types Packs/Day Years [...] In the last 10 days, have tremayne u been in contact with someone who was confirmed or suspected to have Coronavirus/COVID-19? No / Unsure 07/01/2022 10:29 AM CDT documented as of this encounter Last Filed Vital Signs Vital Sign Reading Time Taken Comments Blood Pressure 134/83 07/01/2022 10:51 AM CDT Pulse 96 07/01/2022 10:51 AM CDT Temperature 36.7 ??C (98.1 ??F) 07/01/2022 10:51 AM C DT Respiratory Rate 16 07/01/2022 10:51 AM CDT Oxygen Saturation 98% 07/01/2022 10:51 AM CDT Inhaled Oxygen Concentration - - Weight 125.6 kg (277 lb) 07/01/2022 10:51 AM CDT Height 165.1 cm (5' 5 ) 07/01/2022 10:51 AM CDT Body Mass Index 46.1 07/01/2022 10:51 AM CDT documented in this encounter Progress Notes * Wendy West Eisenberg - 07/01/2022 10:00 AM CDT Images from the original note were not included. Primary and Specialty Care Zina Encounter Date: 07/01/2022 Reason for visit: Physical (Annual physical exam and refills/) History of Present Illness: Pt is a 21 y/o female presenting to the clinic for routine refills. Anxiety/depression (chronic condition)- Pt currently takes xanax 0.25mg qhs prn and venlafaxine XR 75 mg qd. Pt denies any new side effects and reports compliance with this regimen. Pt states she is feeling like the Effexor is not working as well as it did in the beginning. Pt is wondering if thereis something she can add or change regimen. No other factors at this time. Patient denies having any fever, chills, N/V/D, CP, SOB and all other medical complaint at this time. Pt is pleasant and cooperative. Pt states [...] smear. Pt is not currently sexually active. SHx pt is a nonsmoker of cigarettes. I spent 30 minutes today reviewing the patient's medical record, obtaining history, performing an exam, ordering medications, tests, and/or procedures, documenting in the medical record and counseling and educating the patient. ROS: Review of Systems Constitutional: Negative for [...] and urgency. Skin: Negative for rash. Neurological: Negative for loss of consciousness, weakness and headaches. Psychiatric/Behavioral: Positive for depression. Negative for hallucinations and suicidal ideas. The patient is nervous/anxious. All other systems reviewed and are negative. Active Problems: Patient Active Problem List Diagnosis ??? Syncope ??? Palpitations ??? Tachycardia ??? Achrochordon ??? Allergic rhinitis ??? Anxiety ??? Insomnia ??? Migraine ??? Obesity ??? PMS (premenstrual syndrome) ??? Restless legs syndrome (RLS) ??? Gall bladder disease ??? Gastroesophageal reflux disease without esophagitis Medical History: Past Medical History: Diagnosis Date ??? Anxiety ??? Asthma ??? Depression ??? GERD (gastroesophageal reflux disease) ??? Heart murmur ??? Hypertension ??? Migraine ??? Palpitations ??? Syncope ??? Tachycardia Surgical History: Past Surgical History: Procedure Laterality Date ??? ANKLE FRACTURE SURGERY ??? FRACTURE SURGERY 06/2013 R ankle Family History: Family History Problem Relation Name Age of Onset ??? Arthritis Mother Izabela ??? Asthma Mother Izabela ??? Hypertension Mother Izabela ??? Depression Father Hubert ??? CHF Maternal Grandmother Maia ??? Open Heart Maternal Grandmother Maia ??? Heart Disease Maternal Grandmother Maia ??? CHF Paternal Grandmother ??? Heart Disease Maternal Grandfather Sergio Social History: Social History Socioeconomic History ??? 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 Smoking status: Never Smoker ??? Smokeless tobacco: Never Used Vaping Use ??? Vaping Use: Never used Substance and Sexual Activity ??? Alcohol use: No ??? Drug use: No ??? Sexual activity: Never Other Topics Concern ??? Exercise Yes ??? Special Diet No ??? Caffeine Concern No Medications: Current Outpatient Medications: ??? ALPRAZolam (XANAX) 0.25 MG tablet, Take 1 tablet (0.25 mg total) by mouth nightly as needed forSleep., Disp: 30 tablet, Rfl: 0 ??? ARIPiprazole (ABILIFY) 5 MG tablet, Take 1 tablet (5 mg total) by mouth daily., Disp: 30 tablet, Rfl: 6 ??? metoprolol succinate ER (TOPROL-XL) 50 MG 24 hr tablet, Take 1 tablet (50 mg total) by mouth daily., Disp: 90 tablet, Rfl: 0 ??? venlafaxine XR (EFFEXOR XR) 75 MG 24 hr capsule, Take 1 capsule (75 mg total) by mouth daily., Disp: 90 capsule, Rfl: 0 ??? Etonogestrel (NEXPLANON SC), Nexplanon, Disp: , Rfl: Allergies: Allergies Allergen Reactions ??? Apple Nausea and Vomiting ??? Tilactase Other (see comment) vomiting--drinds small amounts without problems Vitals: Filed Vitals: 07/01/22 1051 BP: 134/83 Pulse: 96 Resp: 16 Temp: 98.1 ??F (36.7 ??C) SpO2: 98% Weight: 125.6 kg (277 lb) Height: 5' 5 (1.651 m) Body mass index is 46.1 kg/m??. PE: Physical Exam Vitals and nursing note reviewed. Constitutional: General: She is not in acute distress. Appearance: Normal appearance. She is well-developed. She is morbidly obese. Comments: VSS HENT: Head: Normocephalic and atraumatic. Right Ear: Tympanic membrane normal. Left Ear: Tympanic membrane normal. Nose: Nose normal. Mouth/Throat: Mouth: Mucous membranes are moist. Pharynx: Oropharynx is clear. No oropharyngeal exudate or posterior oropharyngeal erythema. Eyes: Extraocular Movements: Extraocular movements intact. Conjunctiva/sclera: Conjunctivae normal. Pupils: Pupils are equal, round, and reactive to light. Cardiovascular: Rate and Rhythm: Normal rate and regular rhythm. Pulses: Normal pulses. Heart sounds: No murmur heard. No friction rub. No gallop. Pulmonary: Effort: Pulmonary effort is normal. No respiratory distress. Breath sounds: Normal breath sounds. Abdominal: General: There is no distension. Palpations: Abdomen is soft. Tenderness: There is no abdominal tenderness. Musculoskeletal: General: Normal range of motion. Cervical back: Normal range of motion and neck supple. No rigidity. No muscular tenderness. Skin: General: Skin is warm and dry. Neurological: Mental Status: She is alert and oriented to person, place, and time. Psychiatric: Mood and Affect: Mood and affect normal. Judgment: Judgment normal. Procedures Procedures Diagnoses/Impression: Encounter Diagnose(s) ICD-10-CM ICD-9-CM SNOMED CT(R) 1. Anxiety F41.9 300.00 ANXIETY ALPRAZolam (XANAX) 0.25 MG tablet ARIPiprazole (ABILIFY) 5 MG tablet 2. Palpitations R00.2 785.1 PALPITATIONS metoprolol succinate ER (TOPROL-XL) 50 MG 24 hr tablet 3. Annual physical exam Z00.00 V70.0 PATIENT ENCOUNTER STATUS Recommendations and Plan: -we will start the pt on Abilify 5 mg for chronic anxiety/depression episodes -we refilled pt's current medication regimen -f/u in 1 month for refills -pt verbalizes their understanding and is in agreement with the plan Orders Placed This Encounter Medications ??? ALPRAZolam (XANAX) 0.25 MG tablet ??? metoprolol succinate ER (TOPROL-XL) 50 MG 24 hr tablet ??? ARIPiprazole (ABILIFY) 5 MG tablet Scribe Attestation: ???By signing below, Wendy Stewart attest that this documentation has been prepared in the presence of and under the direction of Albert Ruby MD. Provider Attestation: ???I, Albert Ruby MD, personally performed the services described in thisdocumentation. All medical record and diagnosis entries made by the scribe were at my direction andin my presence. I have reviewed the chart and agree that the record reflects my personal performance and is accurate and complete.?? 07/01/22 11:52 AM Wendy Eisenberg 07/01/2022 Cosigned by Albert Ruby MD at 07/04/2022 11:00 AM CDT documented in this encounter Plan of Treatment Not on file documented as of this encounter Visit Diagnoses Diagnosis Anxiety- Primary Anxiety state, unspecified Palpitations Annual physical exam Routine general medical examination at a health care facility documented in this encounter Additional Health Concerns Assessment Noted Time PHQ-9 Depression Total Score: 11 022 11:44 AM CDT documented as of this encounter Care Teams [employer] Special Education Teacher Relationship Specialty Start Date End Date Albert Ruby MD [address] [place] [address] [address] [facility] [place] [address] PCP - General FAMILY PRACTICE 05/16/18 Tremayne Shi MD [address] [place] [address] EP Front Loader Residential Driver CARDIOVASCULAR DISEASE 08/15/18 documented as of this encounter
--- OUTSIDE RECORDS SUMMARY | 2024-08-27 04:45 | XMS_ITS | Encounter Summary ---
Author Organization [facility] Address [address] [place] [address]. [place], [place] [address] [place] [address] Care Team Providers Care Distribution Operations Manager Name Role Phone Albert Brown MD Primary Care Provider [phone] Tremayne Shi MD Unavailable [phone] Reason for Visit * Reason Comments Syncope needs refills Palpitations Encounter Details Date Type Department Care Team (Late st Contact Info) Description 05/19/2020 10:30 AM CDT Office Visit [facility] at [facility], [facility] [address] [place], [place] [id number] Tremayne Shi MD [facility]. [facility] [address] [place], [place] [id number] Syncope (needs refills ); Palpitations Social History Tobacco Use Types Packs/Day Years [...] COVID-19? No / Unsure 08/02/2020 8:32 PM NEW CLIENT BANKING SERVICES CLERK documented as of this encounter Last Filed Vital Signs Vital Sign Reading Time Taken Comments Blood Pressure 110/66 05/19/2020 10:05 AM CDT Pulse 100 05/19/2020 10:05 AM CDT Temperature - - Respiratory Rate - - Oxygen Saturation 100% 05/19/2020 10:05 AM CDT Inhaled Oxygen Concentration - - Weight 117.9 kg (260 lb) 05/19/2020 10:05 AM CDT Height 167.6 cm (5' 6 ) 05/19/2020 10:05 AM CDT Body Mass Index 41.97 05/19/2020 10:05 AM CDT documented in this encounter Patient Instructions * Patient Instructions* Tracy Prabhjot Brooks - 05/19/2020 10:30 AM CDT Images from the original note were not included. Patient Education Patient Education Palpitations About this topic Sometimes you may have an awareness of your heart beating. It may feel like your heart is pounding or beating very fast. Sometimes it may feel like your heart is skipping a beat or is fluttering. Doctors may call this feeling a heart palpitation. You may be able to feel your abnormal heart beat in your chest, throat, or neck. Most of the time, the palpitations will go away after a short time and are not serious. Sometimes, they can be a sign of a more serious problem like an irregular heart beat or arrhythmia. What are the causes? ?? Stress, worry, panic, or fear ?? Smoking, caffeine, too much alcohol use, drug abuse ?? Some drugs, supplements, or herbal treatments ?? Body chemicals like potassium, thyroid hormone, or calcium are out of balance. This may happen if you have an illness like kidney disease. Too much throwing up or loose stool can also cause this problem. So can some drugs you take. ?? Heart problems ?? Dehydration ?? Fever What can make this more likely to happen? You are more at risk if you have an abnormal heart rate. People who have problems with low mood or worry are also more likely to have palpitations. So do those who use street drugs. What are the main signs? You may feel: ?? Your heart skips a beat or flutters ?? A pounding or fluttering sensation in your chest, neck, or throat ?? Weak, dizzy, or lightheaded ?? Unusual sweating ?? Trouble breathing ?? Chest discomfort or pain How does the doctor diagnose this health problem? Your doctor will do an exam and ask about your history. Talk to your doctor about how often you feel this kind of heartbeat. Tell your doctor if anything makes it better or worse, like activity or lying down. The doctor may listen to your heartbeat or look for signs of some other health problem. The doctor may order: ?? Lab tests ?? Electrocardiogram (EKG) ?? A Holter or event monitor to check your heart signals for 1 to 3 days How does the doctor treat this health problem? Your care is based on what is causing your palpitations. Some people do not need anything to treat their palpitations. If your palpitations are caused by an irregular heartbeat, you may need to take drugs or have a procedure. Talk to your doctor to learn what is best for you. What drugs may be needed? The doctor may order drugs to: ?? Keep your heartbeat normal and steady What problems could happen? ?? Heart failure ?? Chest pain ?? Heart attack ?? Stroke What can be done to prevent this health problem? ?? Keep a healthy weight. If you are overweight, lose weight. ?? Exercise more often. This will improve your body's blood flow. Talk to your doctor about the right type of exercise for you. ?? Limit beer, wine, and mixed drinks (alcohol). ?? Avoid stress. Think about using guided imagery, yoga, elvia chi, etc. to help with relaxation. ?? Stay away from drugs that make the heartbeat faster, like those used for colds and cough. ?? Avoid caffeine or energy drinks. ?? Do not use street drugs like cocaine or methamphetamines. ?? Stop smoking. When do I need to call the [...] of the body ? Sudden confusion, trouble speaking or understanding ? Sudden trouble seeing in one or both eyes ? Sudden trouble walking, dizziness, loss of balance or coordination ? Sudden severe headache with no known cause Call your doctor if you have: ?? Problems with breathing. These include change in shortness of breath, wheezing, need to sleep sitting up to be able to breathe, or other breathing troubles. ?? Blue or tidwell skin color ?? Sweating ?? Pain, pressure, tightness, or heaviness in your chest, arm, neck, or jaw ?? Very fast heartbeat ?? Trouble breathing with exercise ?? Gas pains or heartburn Where can I learn more? [place] [employer] http://familydoctor.org/familydoctor/en/diseases-conditions/heart-palpitations/c ueesv-pizg-vjrwbau.html Better [employer] Channel https://www.betterhealth.[place].gov.au/health/conditionsandtreatments/heart-arrhyth efzl-kgh-evdcftemrkei NHS Choices http://www.nhs.uk/conditions/Heart-palpitations/Pages/Introduction.aspx Last Reviewed Date 2019-12-05 Consumer Information Use and Disclaimer This information [...] right for you. Copyright Copyright ?? 2020 [employer]. and its affiliates and/or licensors. All rights reserved. documented in this encounter Progress Notes * Tremayne Shi MD - 05/19/2020 10:30 AM CDT Images from the original note were not included. [place], [place] [address] Cardiac Electrophysiology Outpatient Progress Note Patient name: Laura Finley Primary Care Provider: ALBERT BROWN MD Chief Complaint: Palpitations History of Present Illness Laura Finley is a 19-year-old female with a history of obesity, and syncope referred for follow up evaluation of palpitations. She was seen initially in clinic on 08/23/18 and started on Corlanor at her last visit in September of 2018. She did not find relief of her symptoms with metoprolol previously. She continued to have intermittent palpitions on the Corlaner so that was discontinued for diltiazem. She is premed and currently preparing for the [employer]. She had COVID earlier this year and did not get follow up. Unfortunately her diltiazem was not refilled then, she has been doing worse in regards to palpitations without this. She notes with diltiazem she did really well and no palpitations. She prefers to resume this therapy. Recently seen in ED in [place] on 05/12/20 for tachycardia. Assessment and Plan Mrs. Finley is a 19-year-old female with a history of obesity here today for follow up of palpitations/tachycardia. 1. Inappropriate sinus tachycardia: Prior workup was unrevealing for evidence of structural heart disease, anemia, or metabolic disorders causing her heart rate variations. ECG on 05/11/[address] -Will resume diltiazem -Continue hydration, would continued to watch intake salt given borderline hypertension. 2. History of Syncope: No further episodes. No structural heart disease. Possibly vasovagal in etiology. - If recurrence will consider Tilt or loop recorder placement. 3. Anxiety: Continue venlafaxine. Follow up in 9 months History Review of Systems Constitutional: Negative. [...] legs syndrome (RLS) ??? Gall bladder disease Past Medical History: Past Medical History: Diagnosis [...] by mouth nightly as needed for Sleep. FAMOTIDINE 20 MG TABLET Take 1 tablet (20 mg total) by mouth 2 (two) times daily. ONDANSETRON 4 MG DISINTEGRATING TABLET Take 1 tablet (4 mg total) by mouth every 4 (four) hours as needed for Nausea. SUCRALFATE 1 G TABLET Take 1 tablet (1 g total) by mouth 4 (four) times daily. VENLAFAXINE XR 37.5 MG 24 HR CAPSULE Take 1 capsule (37.5 mg total) by mouth daily. Modified Medications No medications on file Discontinued Medications No medications on file Physical Exam Filed Vitals: 05/19/20 1005 BP: 110/66 Pulse: 100 SpO2: 100% Weight: 117.9 kg (260 lb) Height: 5' 6 (1.676 m) PF: (!) 1 L/min Physical Exam: In general, Mrs. Finley laying on the examination table in no [...] Labs: Lab Results Component Value Date/Time NA 139 04/10/2020 07:55 PM K 3.8 04/10/2020 07:55 PM CR 0.96 04/10/2020 07:55 PM AST 16 04/10/2020 07:55 PM ALT 29 04/10/2020 07:55 PM HGB 11.9 (L) 04/10/2020 07:55 PM HCT 37.4 (L) 04/10/2020 07:55 PM PLT 373 04/10/2020 07:55 PM WBC 13.7 (H) 04/10/2020 07:55 PM TROP <0.015 04/10/2020 10:49 PM TSH 1.870 05/24/2019 10:20 AM Echo: 05/2018: Normal LV size and function EKG: ST Tremayne Shi MD [facility] Cardiac Electrophysiology ; ext. [phone] Pager: [phone] 05/19/2020 10:55 AM CLIENT BANKING SERVICES CLERK documented in this encounter Plan of Treatment Not on file documented as of this encounter Visit Diagnoses Diagnosis Inappropriate sinus tachycardia ([facility]/HCC [facility]/HCC)- Primary Other specified cardiac dysrhythmias Palpitations documented in this encounter Additional Health Concerns Assessment Noted Time PHQ-9 Depression Total Score: 9 08/05/20 19 9:19 AM NEW CLIENT BANKING SERVICES CLERK documented as of this encounter Care Teams Distribution Operations Manager Relationship Specialty Start Date End Date Albert Brown MD [address] [facility] [address] [place] [address] PCP - General FAMILY PRACTICE 05/16/18 Tremayne Shi MD [facility]. [facility] [address] [place] [address] EP Copyright Manager CARDIOVASCULAR DISEASE 08/15/18 documented as of this encounter
--- OUTSIDE RECORDS SUMMARY | 2024-08-27 04:45 | XMS_ITS | Encounter Summary ---
Author Organization [facility] Address [address] [place] [address]. [place], [place] [address] [place] [address] Care Team Providers Care Supervisor Tree Trimming Name Role Phone Albert Ruby MD Primary Care Provider [phone] Tremayne Shi MD Unavailable [phone] Encounter Details Date Type Department Care Team (Late st Contact Info) Description 09/29/2020 [employer] Message Enc [facility] Medical Group Family and Sports Medicine - [place] [address] [place] [address] Albert Ruby MD [address] [address] RE: Question Social History Tobacco Use Types Packs/Day Years [...] Total Score: 9 08/05/20 19 9:19 AM RESIDENTIAL COLLECTIONS documented as of this encounter Care Teams Supervisor Tree Trimming Relationship Specialty Start Date End Date Albert Ruby MD [address] [facility] [address] [place] [address] PCP - General FAMILY PRACTICE 05/16/18 Tremayne Shi MD [facility]. [address] [place], [place] [address] EP Feeder/Folder CARDIOVASCULAR DISEASE 08/15/18 documented as of this encounter
--- OUTSIDE RECORDS SUMMARY | 2024-08-27 04:45 | XMS_ITS | Encounter Summary ---
Author Organization [facility] Address [address] [place] [address]. [place] [address] [place] [address] Care Team Providers Care Agricultural Research Technologist Name Role Phone Albert Ruby MD Primary Care Provider [phone] Tremayne Shi MD Unavailable [phone] Reason for Visit * Reason Onset Date Comments Refill Request 07/01/2022 Encounter Details Date Type Department Care Team (Late st Contact Info) Description 07/01/2022 Telephone [facility] Medical [facility] Family and Sports Medicine - [place] [address] [place] [address] Albert Ruby MD [address] [facility] [address] [place] [address] Refill Request Social History Tobacco Use Types [...] Recorded In the last 10 days, have yo u been in contact with someone who was confirmed or suspected to have Coronavirus/COVID-19? No / Unsure 07/01/2022 10:29 AM CDT documented as of this encounter Progress Notes * Claudette Elliott MA - 07/01/2022 1:12 PM CDT Patient needs script sent to different pharmacy. * Dede [place] - 07/01/2022 1:06 PM CDT Patient called & requested rx be sent to [facility] [phone] Please call patient with any questions [phone] documented in this encounter Plan of Treatment Not on file documented as of this encounter Visit Diagnoses Diagnosis Anxiety Anxiety state, unspecified Palpitations documented in this encounter Additional Health Concerns Assessment Noted Time PHQ-9 Depression Total Score: 11 022 11:44 AM CDT documented as of this encounter Care Teams Agricultural Research Technologist Relationship Specialty Start Date End Date Albert Ruby MD [address] [place] [address] [address] [place] [address] PCP - General FAMILY PRACTICE 05/16/18 [facility] [address] [place] [address] EP Lumber Stacker CARDIOVASCULAR DISEASE 08/15/18 documented as of this encounter
--- OUTSIDE RECORDS SUMMARY | 2024-08-27 04:45 | XMS_ITS | Encounter Summary ---
Author Organization [facility] Address [address] [place] [address]. [place], [place] [address] [place] [address] Care Team Providers Care Med Surg Rn Name Role Phone Albert Brown MD Primary Care Provider [phone] Tremayne Shi MD Unavailable [phone] Reason for Referral * Imaging (Routine) - Closed Specialty Diagnoses / Procedures Referred By Ines borja Referred To Contact RADIOLOGY Diagnoses Gall bladder disease Procedures NM HEPATOBILIARY SCAN W/GB EJECTION FRACTION Albert Brown MD [address] [place], [place] [address] Phone: tel: fax: Referral ID Status Reason Start Date Expiration Date Visits Re quested Visits Authorized [id number] Closed 05/25/2020 11/22/2020 1 1 Reason for Visit * Reason Comments Abdominal Pain GERD and acid issues Back Pain Encounter Details Date Type Department Care Team (Late st Contact Info) Description 05/20/2020 8:40 AM CDT Office Visit [facility] Medical Group Family and Sports Medicine - [place] [address] [place] [address] Albert Brown MD [address] [place] [address] Abdominal Pain (GERD and acid issues); Back Pain Social History Tobacco Use Types Packs/Day Years [...] have Coronavirus / COVID-19? No / Unsure 05/19/2020 9:54 AM CDT documented as of this encounter Last Filed Vital Signs Vital Sign Reading Time Taken Comments Blood Pressure 124/74 05/20/2020 8:39 AM CDT Pulse 100 05/20/2020 8:39 AM CDT Temperature 36.7 ??C (98 ??F) 05/20/2020 8:39 AM CDT Respiratory Rate 16 05/20/2020 8:39 AM CDT Oxygen Saturation 98% 05/20/2020 8:39 AM CDT Inhaled Oxygen Concentration - - Weight 117.9 kg (260 lb) 05/20/2020 8:39 AM CDT Height 167.6 cm (5' 6 ) 05/20/2020 8:39 AM CDT Body Mass Index 41.97 05/20/2020 8:39 AM CDT documented in this encounter Progress Notes * Albert Brown MD - 05/20/2020 8:40 AM CDT Images from the original note were not included. Primary and Specialty Care [place] Chief Complaint:: Abdominal Pain (GERD and acid issues) and Back Pain History of Present Illness: Laura Finley is a 19-year-old female who presents for follow up on uncontrolled GERD, GB disease, negative US 2 months ago, needs HIDA scan. ROS: ROS Head: denies headaches or tenderness ENT: mild AR, no sinus pressure, hearing is well, taste and smell are normal Eyes: no visual disturbances or dryness Neck: no swelling, pressure or difficulty breathing Chest: no chest pain or shortness of breath Abdomen: no pain, constipation or diarrhea Extremities: no swelling or weakness Neuro: no confusion, dizziness or falls. : no incontinence of urine or faeces Active Problems: Patient Active Problem List Diagnosis ??? Syncope ??? Palpitations ??? Tachycardia ??? Achrochordon ??? Allergic rhinitis ??? Anxiety ??? Insomnia ??? Migraine ??? Obesity ??? PMS (premenstrual syndrome) ??? Restless legs syndrome (RLS) ??? Gall bladder disease Medical History: Past Medical History: Diagnosis Date [...] resource strain: Not on file ??? Food insecurity: Worry: Not on file Inability: Not on file ??? Transportation needs: Medical: Not on file Non-medical: Not on file Tobacco Use ??? Smoking status: Never Smoker ??? Smokeless tobacco: Never Used Substance and Sexual Activity ??? Alcohol use: No Frequency: Never ??? Drug use: No ??? Sexual activity: Not on file Lifestyle ??? Physical activity: Days per week: Not on file Minutes per session: Not on file ??? Stress: Not on file Relationships ??? Social connections: Talks on phone: Not on file Gets together: Not on file Attends cheondoism service: Not on file Active member of club or organization: Not on file Attends meetings of clubs or organizations: Not on file Relationship status: Not on file ??? Intimate partner violence: Fear of current or ex partner: Not [...] for Sleep.,Disp: 30 tablet, Rfl: 0 ??? dilTIAZem CD 180 MG 24 hr capsule, Take 1 capsule (180 mg total) by mouth daily., Disp: 90 capsule, Rfl: 1 ??? venlafaxine XR 37.5 MG 24 hr capsule, Take 1 capsule (37.5 mg total) by mouth daily., Disp: 90 capsule, Rfl: 3 Allergies: Allergies Allergen Reactions ??? Apple Nausea and Vomiting ??? Lactase Other (see comment) vomiting--drinds small amounts without problems Vitals: Filed Vitals: 05/20/20 0839 BP: 124/74 Pulse: 100 Resp: 16 Temp: 98 ??F (36.7 ??C) SpO2: 98% Weight: 117.9 kg (260 lb) Height: 5' 6 (1.676 m) PE: Patient appears comfortable, no acute distress, average height, normal gait Patient is oriented to date and time. Normal speech Normal mood and affect Head is normocephalic, a traumatic Eye show full normal ROM, EOM intact, no conjunctival redness or hge Neck is supple, no visible lumps or thyroid enlargment Heart is regular rate and Rhythm, no murmur Lungs are clear to auscultation, no wheeze Diagnoses/Impression: Encounter Diagnose(s) ICD-10-CM ICD-9-CM SNOMED CT(R) 1. Gall bladder disease K82.9 575.9 DISORDER OF GALLBLADDER Recommendations and Plan: No orders of the defined types were placed in this encounter. Cannot display discharge medications since this is not an admission. There are no discontinued medications. Plan of care hs been explained and discussed with patient. Patient will call or seek immediate medical attention if more concerns arise or medications side effects develop. Patient understands and agrees with the treatment plan ALBERT BROWN MD 05/20/2020 documented in this encounter Plan of Treatment Not on file documented as of this encounter Results * NM HEPATOBILIARY SCAN W/GB EJECTION FRACTION (08/03/2020 10:27 AM PRODUCT MANAGEMENT CONSULTANT) Anatomical Region Laterality Modality Abdomen Nuclear Medicine 08/03/2020 10:5 6 AM PRODUCT MANAGEMENT CONSULTANT Impressions 08/03/2020 11:01 AM PRODUCT MANAGEMENT CONSULTANT IMPRESSION: ?? 1. ??Normal contractile response of the gallbladder to a fat-containing liquid meal. 2. ??Normal biliary imaging study. Narrative 08/03/2020 11:01 AM PRODUCT MANAGEMENT CONSULTANT EXAMINATION: ??HEPATOBILIARY SCINTIGRAPHY (WITH GALLBLADDER EJECTION FRACTION) [...] meal. 2. Normal biliary imaging study. Albert Brown MD NUC MED Final Result documented in this encounter Visit Diagnoses Diagnosis Gall bladder disease- Primary Unspecified disorder of gallbladder Gall bladder disease Unspecified disorder of gallbladder documented in this encounter Additional Health Concerns Assessment Noted Time PHQ-9 Depression Total Score: 9 08/05/20 19 9:19 AM PRODUCT MANAGEMENT CONSULTANT documented as of this encounter Care Teams Med Surg Rn Relationship Specialty Start Date End Date Albert Brown MD [address] [place] [address] [address] [place] [address] PCP - General FAMILY PRACTICE 05/16/18 Tremayne Shi MD [facility]. [address] [place] [address] EP Tool Analyst CARDIOVASCULAR DISEASE 08/15/18 documented as of this encounter
--- OUTSIDE RECORDS SUMMARY | 2024-08-27 04:45 | XMS_ITS | Encounter Summary ---
Author Organization [facility] Address [address] [place] [address]. [place], [place] [address] [place] [address] Care Team Providers Care Drawing In Hand Name Role Phone Albert Ruby MD Primary Care Provider [phone] Tremayne Shi MD Unavailable [phone] Reason for Visit * Reason Onset Date Comments Appointment Request 04/30/2020 Encounter Details Date Type Department Care Team (Late st Contact Info) Description 04/30/2020 myVBO Message [facility], [address] [place] [address] Tremayne Shi MD [facility]. [address] [place] [address] Social History Tobacco Use Types Packs/Day Years Used Date Smoking Tobacco: Never Smokeless Tobacco: Never Alcohol Use Standard Drinks/Week Comments No 0 (1 standard drink = 0.6 oz pur e alcohol) AUDIT-C Answer Date Recorded Frequency of Alcohol Consumption Never 05/29/2018 Average Number of Drinks Not on file 018 Frequency of Binge Drinking Not on file 05/12 PHQ-2 Answer Date Recorded PHQ-2 Score 2 08/06/2019 Comments No Sex and Gender Information Value [...] have Coronavirus / COVID-19? No / Unsure 04/10/2020 9:36 PM CDT documented as of this encounter Progress Notes * Tracy A Brooks - 04/30/2020 4:26 PM CDT You had sent a request to make an appointment. I'm not sure when you are available so I tried reaching you by phone, but I have scheduled your appointment for . 05/07/20 at 9:[address] Shi. Please call to reschedule if this does not work. Thanks! documented in this encounter Plan of Treatment Not on file documented as of this encounter Visit Diagnoses Not on filedocumented in this encounter Additional Health Concerns Assessment Noted Time PHQ-9 Depression Total Score: 9 08/05/20 19 9:19 AM WELDER FITTER GAS documented as of this encounter Care Teams Drawing In Hand Relationship Specialty Start Date End Date Albert Ruby MD [address] [facility] [address] PCP - General FAMILY PRACTICE 05/16/18 Tremayne Shi MD [address] [place] [address] EP Auto Fleet Manager CARDIOVASCULAR DISEASE 08/15/18 documented as of this encounter
--- OUTSIDE RECORDS SUMMARY | 2024-08-27 04:45 | XMS_ITS | Encounter Summary ---
Author Organization [facility] Address [address] [place] [address]. [place] [address] Care Team Providers Care Dispute Resolution Analyst Name Role Phone Albert Ruby MD Primary Care Provider [phone] Tremayne Shi MD Unavailable [phone] Encounter Details Date Type Department Care Team (Latest Contact Info) Description 05/19/2020 Travel Social History Tobacco Use Types Packs/Day [...] AM CDT documented as of this encounter Plan of Treatment Not on file documented as of this encounter Visit Diagnoses Not on filedocumented in this encounter Additional Health Concerns Assessment Noted Time PHQ-9 Depression Total Score: 9 08/05/20 19 9:19 AM STUMP SHOOTER documented as of this encounter Care Teams Dispute Resolution Analyst Relationship Specialty Start Date End Date Albert Ruby MD [address] [place] [address] PCP - General FAMILY PRACTICE 05/16/18 Tremayne Shi MD [address] [place] [address] EP Video Manager CARDIOVASCULAR DISEASE 08/15/18 documented as of this encounter
--- OUTSIDE RECORDS SUMMARY | 2024-08-27 04:45 | XMS_ITS | Encounter Summary ---
Author Organization [facility] Address [address] [place] [address]. [place], [place] [address] [place] [address] Care Team Providers Care Neurology Manager Name Role Phone Albert Ruby MD Primary Care Provider [phone] Tremayne Shi MD Unavailable [phone] Encounter Details Date Type Department Care Team (Late st Contact Info) Description 03/24/2021 MyCSwapDrivet Message Enc [facility] Medical Group Family and Sports Medicine - [place] [address] [place] [address] Albert Ruby MD [address] [address] RE: Other Social History Tobacco Use Types Packs/Day Years [...] Depression Total Score: 10 021 8:11 AM DIPLOMATIC COURIER documented as of this encounter Care Teams Neurology Manager Relationship Specialty Start Date End Date Albert Ruby MD [address] [place] [address] PCP - General FAMILY PRACTICE 05/16/18 Tremayne Shi MD [facility] [facility] [address] EP Beauty Counselor CARDIOVASCULAR DISEASE 08/15/18 documented as of this encounter
--- OUTSIDE RECORDS SUMMARY | 2024-08-27 04:45 | XMS_ITS | Encounter Summary ---
Author Organization [facility] Address [address] [place] [address]. [place], [place] [address] [place] [address] Care Team Providers Care Business Support Name Role Phone Albert Ruby MD Primary Care Provider [phone] Tremayne Shi MD Unavailable [phone] Encounter Details Date Type Department Care Team (Late st Contact Info) Description 10/03/2022 MyCSlideMailt Message Enc [facility] Medical Group Family and Sports Medicine - [place] [address] [place] [address] Albert Ruby MD [address] [address] Depression Medications Social History Tobacco Use Types Packs/Day Years [...] documented as of this encounter Care Teams Business Support Relationship Specialty Start Date End Date Albert Ruby MD [address] [place] [address] PCP - General FAMILY PRACTICE 05/16/18 Tremayne Shi MD [facility] [address] [place] [address] EP Administrative Fellow CARDIOVASCULAR DISEASE 08/15/18 documented as of this encounter
--- OUTSIDE RECORDS SUMMARY | 2024-08-27 04:45 | XMS_ITS | Encounter Summary ---
Author Organization [facility] Address [address] [place] [address]. [place] [address] Care Team Providers Care Editor & Co Founder Name Role Phone Albert Ruby MD Primary Care Provider [phone] Tremayne Shi MD Unavailable [phone] Encounter Details Date Type Department Care Team (Latest Contact Info) Description 11/13/2020 Travel Social History Tobacco Use Types Packs/Day [...] COVID-19? No / Unsure 11/13/2020 7:54 AM CARROTING MACHINE OFFBEARER documented as of this encounter Plan of Treatment Not on file documented as of this encounter Visit Diagnoses Not on filedocumented in this encounter Additional Health Concerns Assessment Noted Time PHQ-9 Depression Total Score: 10 021 8:11 AM CARROTING MACHINE OFFBEARER documented as of this encounter Care Teams Editor & Co Founder Relationship Specialty Start Date End Date Albert Ruby MD [address] [place] [address] [address] [place] [address] PCP - General FAMILY PRACTICE 05/16/18 Tremayne Shi MD [facility]. [facility] [address] [place] [address] EP Boat Tester CARDIOVASCULAR DISEASE 08/15/18 documented as of this encounter
--- OUTSIDE RECORDS SUMMARY | 2024-08-27 04:45 | XMS_ITS | Encounter Summary ---
Author Organization [facility] Address [address] [place] [address]. [place] [address] Care Team Providers Care Inner Tube Cutter Name Role Phone Albert Ruby MD Primary Care Provider [phone] Tremayne Shi MD Unavailable [phone] Encounter Details Date Type Department Care Team (Latest Contact Info) Description 11/17/2020 Travel Social History Tobacco Use Types Packs/Day [...] COVID-19? No / Unsure 11/17/2020 10:06 AM KEY ACCOUNT DIRECTOR documented as of this encounter Plan of Treatment Not on file documented as of this encounter Visit Diagnoses Not on filedocumented in this encounter Additional Health Concerns Assessment Noted Time PHQ-9 Depression Total Score: 10 021 8:11 AM KEY ACCOUNT DIRECTOR documented as of this encounter Care Teams Inner Tube Cutter Relationship Specialty Start Date End Date Albert Ruby MD [address] [place] [address] [address] [place] [address] PCP - General FAMILY PRACTICE 05/16/18 Tremayne Shi MD [facility]. [facility] [address] [place] [address] EP Green Building Engineer CARDIOVASCULAR DISEASE 08/15/18 documented as of this encounter
--- OUTSIDE RECORDS SUMMARY | 2024-08-27 04:45 | XMS_ITS | Encounter Summary ---
Author Organization [facility] Address [address] [place] [address]. [place] [address] [place] [address] Care Team Providers Care Master Automotive Glass Technician Name Role Phone Albert Ruby MD Primary Care Provider [phone] Tremayne Shi MD Unavailable [phone] Reason for Visit * Reason Onset Date Comments Referral 12/31/2020 Encounter Details Date Type Department Care Team (Late st Contact Info) Description 12/31/[address] [facility] Medical Group Family and Sports Medicine - [place] [address] [place] [address] Albert Ruby MD [address] [facility] [address] [place] [address] Referral Social History Tobacco Use Types Packs/Day Years [...] Progress Notes * Claudette Elliott MA - 12/31/2020 12:43 PM CDT Referral sent * Yael Guevara - 12/31/2020 12:32 PM CDT Referral Request Laura Finley 2000 is requesting a referral to the following provider. Specialty: GI Specialist name: Dr. Velasquez Sellers Address/ Phone/ Fax: [phone] [place] [address] Appointment date: Does not have appointment yet. Diagnosis/ Problem: Upper abdominal pain documented in this encounter Plan of Treatment Not on file documented as of this encounter Visit Diagnoses Not on filedocumented in this encounter Additional Health Concerns Assessment Noted Time PHQ-9 Depression Total Score: 10 021 8:11 AM SURGICAL INSTRUMENTS INSPECTOR documented as of this encounter Care Teams Master Automotive Glass Technician Relationship Specialty Start Date End Date Albert Ruby MD [address] [place] [address] [address] [place] [address] PCP - General FAMILY PRACTICE 05/16/18 Tremayne Shi MD [facility]. [address] [place] [address] EP Critical Care Rn CARDIOVASCULAR DISEASE 08/15/18 documented as of this encounter
--- OUTSIDE RECORDS SUMMARY | 2024-08-27 04:45 | XMS_ITS | Encounter Summary ---
Author Organization [facility] Address [address] [place] [address]. [place], [place] [address] [place] [address] Care Team Providers Care Intellectual Property Paralegal Name Role Phone Albert Ruby MD Primary Care Provider [phone] Tremayne Shi MD Unavailable [phone] Reason for Referral * Consultation (Routine) - Closed Specialty Diagnoses / Procedures Referred By Ines borja Referred To Contact GASTROENTEROLOGY Diagnoses Abdominal pain Procedures OFFICE/OUTPT VISIT,NEW,LEVL III OFFICE/OUTPT VISIT,NEW,LEVL IV OFFICE/OUTPT VISIT,NEW,LEVL V OFFICE/OUTPT VISIT,EST,LEVL III OFFICE/OUTPT VISIT,EST,LEVL IV OFFICE/OUTPT VISIT,EST,LEVL V Albert Ruby MD [address] [place] [address] [address] [place] [address] Phone: tel: fax: [facility] Medical Group Multispecialty Care - [facility] [address] [facility], [address] [place] [address] Phone: tel: fax: Referral ID Status Reason Start Date Expiration Date Visits Re quested Visits Authorized [id number] Closed 08/03/2022 09/03/2023 1 1 GANIC CHEMISTRY PROFESSOR Encounter Details Date Type Department Care Team (Late st Contact Info) Description 08/03/2022 MyChart Message Enc [facility] Medical Group Family and Sports Medicine - [place] [address] [place] [place] [address] Albert Ruby MD [address] [place] [address] Referral Social History Tobacco Use Types Packs/Day [...] Progress Notes * Gerri Ross CMA - 08/03/2022 1:59 PM CSTFrom: Laura Finley To: Dr. Albert Ruby Sent: 08/03/2022 12:09 PM INORGANIC CHEMISTRY PROFESSOR Subject: Referral I am requesting a referral to Juan Pablo Torres for my abdominal pain. Thank you. GANIC CHEMISTRY PROFESSOR documented in this encounter Plan of Treatment Scheduled Referrals Name Type Priority Associated Diagnoses Orde r Schedule Ambulatory referral to Gastroenterology (OTHER) Referral Routine Abdominal pain Ordered: 08/03/2022 documented as of this encounter Visit Diagnoses Diagnosis Abdominal pain- Primary Abdominal pain, unspecified site documented in this encounter Additional Health Concerns Assessment Noted Time PHQ-9 Depression Total Score: 11 022 11:44 AM CDT documented as of this encounter Care Teams Intellectual Property Paralegal Relationship Specialty Start Date End Date Albert Ruby MD [address] [facility] [address] [place] [address] PCP - General FAMILY PRACTICE 05/16/18 Tremayne Shi MD [address] [facility] [address] [place] [address] EP Assembler Carbon Brushes CARDIOVASCULAR DISEASE 08/15/18 documented as of this encounter
--- OUTSIDE RECORDS SUMMARY | 2024-08-27 04:45 | XMS_ITS | Encounter Summary ---
Author Organization [facility] Address [facility] [place] [address] [place] [address] Care Team Providers Care Die Press Operator Name Role Phone Albert Ruby MD Primary Care Provider [phone] Tremayne Shi MD Unavailable [phone] Reason for Referral * Consultation/Treatment (Routine) - Closed Specialty Diagnoses / Procedures Referred By Ines borja Referred To Contact Psychiatry Diagnoses Anxiety and depression Albert Ruby MD [address] [place] [address] Phone: tel: fax: Referral ID Status Reason Start Date Expiration Date V isits Requested Visits Authorized [id number] Closed Specialty Services 02/16/2021 03/18/2022 99 99 Scheduling Instructions I am requesting a referral to a psychiatrist. The psychiatrist is Janett Gonzalez MD [address] [place] [address] Encounter Details Date Type Department Care Team (Late st Contact Info) Description 02/16/2021 Orders Only [facility] Medical Group Family and Sports Medicine - [place] [address] [facility] [address] Albert Ruby MD [address] [facility] [address] [place] [address] Social History Tobacco Use Types Packs/Day Years [...] of this encounter Plan of Treatment Scheduled Referrals Name Type Priority Associated Diagnoses Orde r Schedule Ambulatory Referral to Psychiatry Referral Routine Anxiety and depression Ordered: 02/16/2021 documented as of this encounter Visit Diagnoses Diagnosis Anxiety and depression- Primary Dysthymic disorder documented in this encounter Additional Health Concerns Assessment Noted Time PHQ-9 Depression Total Score: 10 021 8:11 AM PILL COATER documented as of this encounter Care Teams Die Press Operator Relationship Specialty Start Date End Date Albert Ruby MD [address] [place] [address] [address] [place] [address] PCP - General FAMILY PRACTICE 05/16/18 Tremayne Shi MD [facility] [address] [place] [address] EP Security Associate CARDIOVASCULAR DISEASE 08/15/18 documented as of this encounter
--- OUTSIDE RECORDS SUMMARY | 2024-08-27 04:45 | XMS_ITS | Encounter Summary ---
Author Organization [facility] Address [address] [place] [address]. [place], [place] [address] [place] [address] Care Team Providers Care Car Worker Helper Name Role Phone Albert Ruby MD Primary Care Provider [phone] Tremayne Shi MD Unavailable [phone] Encounter Details Date Type Department Care Team (Late st Contact Info) Description 05/21/2020 Scan [facility], [address] [address] Scanned, Documents Social History Tobacco Use Types [...] Type Priority Associated Diagnoses Orde r Schedule ECG EKG Routine Ordered: 05/21 documented as of this encounter Visit Diagnoses Not on filedocumented in this encounter Additional Health Concerns Assessment Noted Time PHQ-9 Depression Total Score: 9 08/05/20 19 9:19 AM INDUSTRIAL PAINTER documented as of this encounter Care Teams Car Worker Helper Relationship Specialty Start Date End Date Albert Ruby MD [address] [facility] [address] [place] [address] PCP - General FAMILY PRACTICE 05/16/18 Tremayne Shi MD [facility] [address] [place], [place] [address] EP Casting Repairer CARDIOVASCULAR DISEASE 08/15/18 documented as of this encounter
--- OUTSIDE RECORDS SUMMARY | 2024-08-27 04:45 | XMS_ITS | Encounter Summary ---
Author Organization [facility] Address [address] [place] [address]. [place] [address] Care Team Providers Care High Scaler Name Role Phone Albert Ruby MD Primary Care Provider [phone] Tremayne Shi MD Unavailable [phone] Encounter Details Date Type Department Care Team (Latest Contact Info) Description 08/02/2020 Travel Social History Tobacco Use Types Packs/Day [...] COVID-19? No / Unsure 08/02/2020 8:32 PM TELESALES MANAGER documented as of this encounter Plan of Treatment Not on file documented as of this encounter Visit Diagnoses Not on filedocumented in this encounter Additional Health Concerns Assessment Noted Time PHQ-9 Depression Total Score: 9 08/05/20 19 9:19 AM TELESALES MANAGER documented as of this encounter Care Teams High Scaler Relationship Specialty Start Date End Date Albert Ruby MD [address] [facility] [address] [facility] [place] [address] PCP - General FAMILY PRACTICE 05/16/18 Tremayne Shi MD [address] [place] [address] EP Egg Separator CARDIOVASCULAR DISEASE 08/15/18 documented as of this encounter
--- OUTSIDE RECORDS SUMMARY | 2024-08-27 04:45 | XMS_ITS | Encounter Summary ---
Author Organization [facility] Address [address] [place] [address]. [place] [address] Care Team Providers Care Skiver Hand Name Role Phone Albert Ruby MD Primary Care Provider [phone] Tremayne Shi MD Unavailable [phone] Encounter Details Date Type Department Care Team (Latest Contact Info) Description 08/03/2020 Travel Social History Tobacco Use Types Packs/Day [...] COVID-19? No / Unsure 08/02/2020 8:32 PM AIR HOLE DRILLER documented as of this encounter Plan of Treatment Not on file documented as of this encounter Visit Diagnoses Not on filedocumented in this encounter Additional Health Concerns Assessment Noted Time PHQ-9 Depression Total Score: 9 08/05/20 19 9:19 AM AIR HOLE DRILLER documented as of this encounter Care Teams Skiver Hand Relationship Specialty Start Date End Date Albert Ruby MD [address] [facility] [address] [facility] [place] [address] PCP - General FAMILY PRACTICE 05/16/18 Tremayne Shi MD [address] [place] [address] EP Rn New Graduate CARDIOVASCULAR DISEASE 08/15/18 documented as of this encounter
--- OUTSIDE RECORDS SUMMARY | 2024-08-27 04:45 | XMS_ITS | Encounter Summary ---
Author Organization [facility] Address [address] [place] [address]. 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 [address] [place] [address] EP Clamper CARDIOVASCULAR DISEASE 08/15/18 documented as of this encounter
--- OUTSIDE RECORDS SUMMARY | 2024-08-27 04:45 | XMS_ITS | Encounter Summary ---
Author Organization [facility] Address [address] [place] [address]. [place], [place] [address] [place] [address] Care Team Providers Care Commodities Requirements Analyst Name Role Phone Albert Ruby MD Primary Care Provider [phone] Tremayne Shi MD Unavailable [phone] Reason for Visit * Reason Onset Date Comments Results 11/25/2020 Encounter Details Date Type Department Care Team (Late st Contact Info) Description 11/25/[address] [address] Karen Pina, RN Results Social History Tobacco Use Types Packs/Day [...] COVID-19? No / Unsure 11/17/2020 10:06 AM NON FOOD RECEIVING CLERK documented as of this encounter Progress Notes * Karen Pina RN - 11/26/2020 4:25 PM CDT Rx sent to pharmacy. * Tremayne Shi MD - 11/26/2020 4:21 PM CDT Discussed results with patient. Average rate of 99 bpm. No arrhythmias. We discussed going up on diltiazem to 240 mg daily. She is agreeable to this. * Karen Pina RN - 11/25/2020 4:40 PM CDT I informed the patient that we do not have the monitor results at this time. The patient states that she has about 6 more days for her Diltiazem then will need a new Rx. She was waiting for the monitor results to see if there will be any changes. I informed the patient that we should have the results by the end of the week. The patient had no further questions. * Karen Pina RN - 11/25/2020 12:02 PM CDT I received a voicemail from the patient asking for monitor results. Message to Dr. Shi. documented in this encounter Plan of Treatment Not on file documented as of this encounter Visit Diagnoses Not on filedocumented in this encounter Additional Health Concerns Assessment Noted Time PHQ-9 Depression Total Score: 10 021 8:11 AM NON FOOD RECEIVING CLERK documented as of this encounter Care Teams Commodities Requirements Analyst Relationship Specialty Start Date End Date Albert Ruby MD [address] [address] PCP - General FAMILY PRACTICE 05/16/18 Termayne Shi MD [address] [address] EP Information Security Manager CARDIOVASCULAR DISEASE 08/15/18 documented as of this encounter
--- OUTSIDE RECORDS SUMMARY | 2024-08-27 04:45 | XMS_ITS | Encounter Summary ---
Author Organization [facility] Address [address] [place] [address]. [place] [address] [place] [address] Care Team Providers Care Investigator Narcotics Name Role Phone Albert Ruby MD Primary Care Provider [phone] Tremayne Shi MD Unavailable [phone] Reason for Visit * Reason Comments Anxiety wanting to switch to something else, Venlafaxine not orking Encounter Details Date Type Department Care Team (Late st Contact Info) Description 06/17/2021 1:00 PM CDT Office Visit [facility] Family and Sports Medicine - [place] [address] [place] [address] Albert Ruby MD 670 [facility] 200 [place] [address] Anxiety (wanting to switch to something else, Venlafaxine not orking) Social History Tobacco Use Types Packs/Day Years [...] PM CDT documented as of this encounter Last Filed Vital Signs Vital Sign Reading Time Taken Comments Blood Pressure 110/66 06/17/2021 12:56 PM CDT Pulse 78 06/17/2021 12:56 PM CDT Temperature 36.2 ??C (97.1 ??F) 06/17/2021 12:56 PM C DT Respiratory Rate 16 06/17/2021 12:56 PM CDT Oxygen Saturation 98% 06/17/2021 12:56 PM CDT Inhaled Oxygen Concentration - - Weight 123.8 kg (273 lb) 06/17/2021 12:56 PM CDT Height 165.1 cm (5' 5 ) 06/17/2021 12:56 PM CDT Body Mass Index 45.43 06/17/2021 12:56 PM CDT documented in this encounter Progress Notes * Wendy Eisenberg - 06/17/2021 1:00 PM CDT Images from the original note were not included. Primary and Specialty Care Zina Encounter Date: 06/17/2021 Reason for visit: Anxiety (wanting to switch to something else, Venlafaxine not orking) History of Present Illness: Pt is a 20 y/o female presenting to the clinic for routine refills for chronic anxiety. Anxiety/depression (chronic condition)- Pt currently takes xanax 0.25mg qhs prn and venlafaxine XR 37.5mg qd. Pt denies any new side effects and reports compliance with this regimen. Pt states her anxiety is still high with work and school. PHQ9=8 GAD7=14. Pt states she is dealing with the loss of her grandfather and he was a major part of her life. No other factors at this time. Patient denies having any fever, chills, N/V/D, CP, SOB and all other medical complaint at this time. SHx pt is a nonsmoker of cigarettes. I spent 30 minutes today reviewing the patient's medical record, obtaining history, performing an exam, ordering medications, tests, and/or procedures, documenting in the medical record and counseling and educating the patient/family/caregiver. 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 Smoking status: Never Smoker ??? Smokeless tobacco: Never Used Substance and Sexual Activity ??? Alcohol use: No ??? Drug use: No ??? Sexual activity: Not on file Other Topics Concern ??? Exercise Yes ??? Special Diet No ??? Caffeine Concern No Social History Narrative ??? Not on file Social Determinants of Health Financial Resource Strain: ??? Difficulty of Paying Living Expenses: Food Insecurity: ??? Worried About Running Out of Food in the Last Year: ??? Ran Out of Food in the Last Year: Transportation Needs: ??? Lack of Transportation (Medical): ??? Lack of Transportation (Non-Medical): Physical Activity: ??? Days of Exercise per Week: ??? Minutes of Exercise per Session: Stress: ??? Feeling of Stress : Social Connections: ??? Frequency of Communication with Friends and Family: ??? Frequency of Social Gatherings with Friends and Family: ??? Attends Religion Services: ??? Active Member of Clubs or Organizations: ??? Attends Club or Organization Meetings: ??? Marital Status: Intimate Partner Violence: ??? Fear of Current or Ex-Partner: ??? Emotionally Abused: ??? Physically Abused: ??? Sexually Abused: Medications: Current Outpatient Medications: ??? ALPRAZolam 0.25 MG tablet, Take 1 tablet (0.25 mg total) by mouth nightly as needed for Sleep.,Disp: 30 tablet, Rfl: 0 ??? venlafaxine XR (EFFEXOR XR) 75 MG 24 hr capsule, Take 1 capsule (75 mg total) by mouth daily., Disp: 90 capsule, Rfl: 3 ??? Etonogestrel (NEXPLANON SC), Nexplanon, Disp: , Rfl: ??? metoprolol succinate ER 50 MG 24 hr tablet, Take 1 tablet (50 mg total) by mouth daily. Please stop diltiazem., Disp: 90 tablet, Rfl: 0 ??? venlafaxine XR 37.5 MG 24 hr capsule, Take 1 capsule (37.5 mg total) by mouth daily., Disp: 90 capsule, Rfl: 3 Allergies: Allergies Allergen Reactions ??? Apple Nausea and Vomiting ??? Lactase Other (see comment) vomiting--drinds small amounts without problems Vitals: Filed Vitals: 06/17/21 1256 BP: 110/66 Pulse: 78 Resp: 16 Temp: 97.1 ??F (36.2 ??C) SpO2: 98% Weight: 123.8 kg (273 lb) Height: 5' 5 (1.651 m) Body mass index is 45.43 kg/m??. PE: Physical Exam Vitals and nursing [...] rhythm. Pulses: Normal pulses. Heart sounds: No murmur. No friction rub. No gallop. Pulmonary: Effort: [...] SNOMED CT(R) 1. Anxiety F41.9 300.00 ANXIETY venlafaxine XR (EFFEXOR XR) 75 MG 24 hr capsule ALPRAZolam 0.25 MG tablet Recommendations and Plan: -we refilled pt's Xanax 0.25 mg -we doubled pt's venlafaxine XR 37.5mg to 75 mg. -f/u in 3 weeks for f/u -pt verbalizes their understanding and is in agreement with the plan Orders Placed This Encounter Medications ??? venlafaxine XR (EFFEXOR XR) 75 MG 24 hr capsule ??? ALPRAZolam 0.25 [...] personal performance and is accurate and complete.?? 06/17/21 1:18 PM Wendy Eisenberg 06/17/2021 Cosigned by Albert Ruby MD at 06/21/2021 11:10 AM CDT documented in this encounter Plan of Treatment Not on file documented as of this encounter Visit Diagnoses Diagnosis Anxiety Anxiety state, unspecified documented in this encounter Additional Health Concerns Assessment Noted Time PHQ-9 Depression Total Score: 8 06/17/20 21 1:36 PM CDT documented as of this encounter Care Teams Investigator Narcotics Relationship Specialty Start Date End Date Albert Ruby MD [address] [place] [address] [address] [place] [address] PCP - General FAMILY PRACTICE 05/16/18 Tremayne Shi MD [facility]. [address] [place] [address] EP Rock Mason CARDIOVASCULAR DISEASE 08/15/18 documented as of this encounter
--- OUTSIDE RECORDS SUMMARY | 2024-08-27 04:45 | XMS_ITS | Encounter Summary ---
Author Organization [facility] Address [address] [place] [address]. [place], [place] [address] [place] [address] Care Team Providers Care Can Maker Name Role Phone Albert Ruby MD Primary Care Provider [phone] Tremayne Shi MD Unavailable [phone] Encounter Details Date Type Department Care Team (Late st Contact Info) Description 04/06/2021 MicksGarage Message Enc [facility] THREE [facility], [address] [place], [place] [id number] Tremayne Shi MD Three [facility]. 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 [address] [facility], [place] [address] EP Certified Pesticide Applicator CARDIOVASCULAR DISEASE 08/15/18 documented as of this encounter
--- OUTSIDE RECORDS SUMMARY | 2024-08-27 04:45 | XMS_ITS | Encounter Summary ---
Author Organization [facility] Address [address] [place] [address]. [place] [address] Care Team Providers Care Manager Ems Name Role Phone Albert Ruby MD Primary Care Provider [phone] Tremayne Shi MD Unavailable [phone] Encounter Details Date Type Department Care Team (Latest Contact Info) Description 07/01/2022 Travel Social History Tobacco Use Types Packs/Day [...] Noted Time PHQ-9 Depression Total Score: 11 10/21/2 022 11:44 AM CDT documented as of this encounter Care Teams Manager Ems Relationship Specialty Start Date End Date Albert Ruby MD [address] [place] [address] 200 [place] [address] PCP - General FAMILY PRACTICE 05/16/18 Tremayne Shi MD [facility]. [address] [place] [address] EP Trust Accounts Supervisor CARDIOVASCULAR DISEASE 08/15/18 documented as of this encounter
--- OUTSIDE RECORDS SUMMARY | 2024-08-27 04:45 | XMS_ITS | Encounter Summary ---
Author Organization [facility] Address [address] [place] [address]. [place], [place] [address] [place] [address] Care Team Providers Care Aboriginal Education Worker Coordinator Name Role Phone Albert Ruby MD Primary Care Provider [phone] Tremayne Shi MD Unavailable [phone] Encounter Details Date Type Department Care Team (Late st Contact Info) Description 02/16/2021 [employer] Technologyt Message Enc [facility] Family and Sports Medicine - [place] [address] [place] [address] Albert Ruby MD [address] [address] RE: Referral Request Social History Tobacco Use [...] Depression Total Score: 10 021 8: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 [address] [place] [address] EP Pocket Stitcher CARDIOVASCULAR DISEASE 08/15/18 documented as of this encounter
--- OUTSIDE RECORDS SUMMARY | 2024-08-27 04:45 | XMS_ITS | Encounter Summary ---
Author Organization [facility] Address [address] [place] [address]. [place], [place] [address] [place] [address] Care Team Providers Care Jumpbasting Canvas Baster Name Role Phone Albert Ruby MD Primary Care Provider [phone] Tremayne Shi MD Unavailable [phone] Encounter Details Date Type Department Care Team (Late st Contact Info) Description 05/04/2021 [id number] In[employer] Message Enc [facility] Family and Sports Medicine - [place] [address] [place] [address] Albert Ruby MD [address] [address] RE: Question Social History Tobacco Use Types [...] Depression Total Score: 10 021 8:11 AM GRAIN FARMWORKER documented as of this encounter Care Teams Jumpbasting Canvas Baster Relationship Specialty Start Date End Date Albert Ruby MD [address] [facility] [address] [place] [address] PCP - General FAMILY PRACTICE 05/16/18 Tremayne Shi MD [facility] [address] [place] [address] EP Plumbing Assembler CARDIOVASCULAR DISEASE 08/15/18 documented as of this encounter
--- OUTSIDE RECORDS SUMMARY | 2024-08-27 04:45 | XMS_ITS | Encounter Summary ---
Author Organization [facility] Address [address] [place] [address]. [place], [place] [address] [place] [address] Care Team Providers Care Quality Process Auditor Name Role Phone Albert Ruby MD Primary Care Provider [phone] Tremayne Shi MD Unavailable [phone] Reason for Visit * Reason Onset Date Comments Appointment Request 06/30/2021 Encounter Details Date Type Department Care Team (Late st Contact Info) Description 06/30/2021 Physitrack Message Enc [facility] THREE [facility], [address] [place] [address] [facility]. [address] [place] [address] RE: Follow Up/Update Social History Tobacco Use Types Packs/Day Years [...] as of this encounter Progress Notes * Elle Staples - 07/07/2021 11:16 AM CDT LVM for pt to contact our office to schedule a vv appt. * Tracy Guy - 06/30/2021 5:18 PM CDT I left patient a voicemail and sent her a Physitrack message asking her to contact me to schedule a virtual visit. documented in this encounter Plan of Treatment Not on file documented as of this encounter Visit Diagnoses Not on filedocumented in this encounter Additional Health Concerns Assessment Noted Time PHQ-9 Depression Total Score: 8 06/17/20 21 1:36 PM CDT documented as of this encounter Care Teams Quality Process Auditor Relationship Specialty Start Date End Date Albert Ruby MD [address] [place] [address] [address] [facility] [place] [address] PCP - General FAMILY PRACTICE 05/16/18 [facility] MD [facility] [address] [place] [address] EP Warp Picker CARDIOVASCULAR DISEASE 08/15/18 documented as of this encounter
--- OUTSIDE RECORDS SUMMARY | 2024-08-27 04:45 | XMS_ITS | Encounter Summary ---
Author Organization [facility] Address [address] [place] [address]. [place], [place] [address] [place] [address] Care Team Providers Care Procurement Professional Name Role Phone Albert Ruby MD Primary Care Provider [phone] Tremayne Shi MD Unavailable [phone] Reason for Referral * Consultation/Treatment (Routine) - Closed Specialty Diagnoses / Procedures Referred By Ines borja Referred To Contact Diagnoses Gallstone Albert Ruby MD [address] [place] [address] Phone: tel: fax: Zachariah Patiño IV, MD Phone: tel: fax: Referral ID Status Reason Start Date Expiration Date Visits Re quested Visits Authorized [id number] Closed 04/05/2021 05/06/2022 99 99 Scheduling Instructions [facility] general surgery Wilber Kaylyn [address] [place] [address] Gallstones Encounter Details Date Type Department Care Team (Late st Contact Info) Description 04/05/2021 Orders Only [facility] Family and Sports Medicine - [place] [address] [place] [address] Albert Ruby MD [address] [place] [address] Social History Tobacco Use Types Packs/Day Years [...] Diagnoses Orde r Schedule Ambulatory referral to General Surgery (OTHER) Referral Routine Gallstone Ordered: 04/05/2021 documented as of this encounter Visit Diagnoses Diagnosis Gallstone- Primary Calculus of gallbladder without mention of cholecystitis or obstruction documented in this encounter Additional Health Concerns Assessment Noted Time PHQ-9 Depression Total Score: 10 021 8:11 AM SUPERINTENDENT 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 [address] [place], [place] [address] EP Quahogger CARDIOVASCULAR DISEASE 08/15/18 documented as of this encounter
--- OUTSIDE RECORDS SUMMARY | 2024-08-27 04:45 | XMS_ITS | Encounter Summary ---
Author Organization [facility] Address [facility]. [place], [place] [address] [place] [address] Care Team Providers Care Music Director Name Role Phone Albert Ruby MD Primary Care Provider [phone] Tremayne Shi MD Unavailable [phone] Reason for Referral * Consultation (Routine) - Closed Specialty Diagnoses / Procedures Referred By Contanahy borja Referred To Contact GASTROENTEROLOGY Diagnoses Upper abdominal pain Albert Ruby MD [address] [place] [address] Phone: tel: fax: Abhishek Sellers MD [address] [place] [address] Phone: tel: fax: Referral ID Status Reason Start Date Expiration Date Visits Re quested Visits Authorized [id number] Closed 12/31/2020 01/30/2022 100 100 Scheduling Instructions ?? Daniel Finley 2000 is requesting a referral to the following provider. ?? Specialty: GI Specialist name: Dr. Velasquez Sellers Address/ Phone/ Fax: [address] [place] [address] Appointment date: Does not have appointment yet. Diagnosis/ Problem: Upper abdominal pain Encounter Details Date Type Department Care Team (Late st Contact Info) Description 12/31/2020 Orders Only [facility] Medical Group Family and Sports Medicine - [place] [address] [place] [address] Albert Ruby MD 670 [facility] 200 [place] [address] Social History Tobacco Use Types Packs/Day Years [...] Ambulatory referral to Gastroenterology (OTHER) Referral Routine Upper abdominal pain Ordered: 12/31/2020 documented as of this encounter Visit Diagnoses Diagnosis Upper abdominal pain- Primary Abdominal pain, other specified site documented in this encounter Additional Health Concerns Assessment Noted Time PHQ-9 Depression Total Score: 10 021 8:11 AM PNEUMATIC JACK OPERATOR documented as of this encounter Care Teams Music Director Relationship Specialty Start Date End Date Albert Ruby MD 670 [facility] 200 [place] [address] PCP - General FAMILY PRACTICE 05/16/18 Tremayne Shi MD Three [facility]. [address] [place] [address] EP Glass Bulb Machine Adjuster CARDIOVASCULAR DISEASE 08/15/18 documented as of this encounter
--- OUTSIDE RECORDS SUMMARY | 2024-08-27 04:45 | XMS_ITS | Encounter Summary ---
Author Organization [facility] Address [address] [place] [address]. [place], [place] [address] [place] [address] Care Team Providers Care Manager Completions Name Role Phone Albert Ruby MD Primary Care Provider [phone] Tremayne Shi MD Unavailable [phone] Reason for Visit * Reason Onset Date Comments Refill Request 04/07/2021 metoprolol Encounter Details Date Type Department Care Team (Late st Contact Info) Description 04/07/2021 Telephone [facility] THREE [facility], [address] [address] Destiny Roach RN Refill Request (metoprolol) Social History Tobacco Use [...] Depression Total Score: 10 021 8:11 AM AIRCRAFT 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 [address] [place], [place] [address] EP Lead Web Developer CARDIOVASCULAR DISEASE 08/15/18 documented as of this encounter
--- OUTSIDE RECORDS SUMMARY | 2024-08-27 04:46 | XMS_ITS | Encounter Summary ---
Author Organization [facility] Address [address] [place] [address]. [place] [address] [place] [address] Care Team Providers Care C Architect Name Role Phone Albert Ruby MD Primary Care Provider [phone] Tremayne Shi MD Unavailable [phone] Reason for Visit * Reason Onset Date Comments Refill Request 10/15/2018 Citalopram refil l Encounter Details Date Type Department Care Team (Late st Contact Info) Description 10/15/2018 Telephone [facility] Family and Sports Medicine - [place] [address] [place] [address] Albert Ruby MD [address] [facility] [address] [place] [address] Refill Request (Citalopram refill) Social History Tobacco Use Types Packs/Day Years Used Date Smoking Tobacco: Never Smokeless Tobacco: Never Alcohol Use Standard Drinks/Week Comments No 0 (1 standard drink = 0.6 oz pur e alcohol) AUDIT-C Answer Date Recorded Frequency of Alcohol Consumption Never 05/29/2018 Average Number of Drinks Not on file 018 Frequency of Binge Drinking Not on file 05/12 Comments Unknown Sex and Gender Information Value Date Recorded Sex Assigned at Not on file Legal Sex Female 4:55 PM CDT Gender Identity Not on file Sexual Orientation Not on file Occupation Industry Job Start Date Job End Date Not on file Not on file Not on file Not on file documented as of this encounter Progress Notes * Kesha Zuniga MA - 10/15/2018 10:20 AM CSTAddended by: KESHA ZUNIGA on: 10/15/2018 10:20 AM Modules accepted: Orders CREW LEADER * Tory Asif - 10/15/2018 9:45 AM CST Need refill of Citalopram 20 mg sent to [facility] in [facility]. Pt was last seen in April but is away at school and will not be in the area for a few more months. If she needs to be seen for this refill or if there are any questions please call pat Gurrola at [phone]. CREW LEADER documented in this encounter Plan of Treatment Not on file documented as of this encounter Visit Diagnoses Diagnosis Depression Depressive disorder, not elsewhere classified documented in this encounter Care Teams C Architect Relationship Specialty Start Date End Date Albert Ruby MD [address] [place] [address] [address] [facility] [place] [address] PCP - General FAMILY PRACTICE 05/16/18 [facility] [place] [address] EP Aeronautics Teacher CARDIOVASCULAR DISEASE 08/15/18 documented as of this encounter
--- OUTSIDE RECORDS SUMMARY | 2024-08-27 04:46 | XMS_ITS | Encounter Summary ---
Author Organization [facility] Address [address] [place] [address]. [place], [place] [address] [place] [address] Care Team Providers Care Drafter Heating And Ventilating Name Role Phone Albert Brown MD Primary Care Provider [phone] Reason for Referral * Imaging (Routine) - Closed Specialty Diagnoses / Procedures Referred By Contac t Referred To Contact CARDIOLOGY DIAGNOSTICS Diagnoses Syncope, unspecified syncope type Palpitations Procedures Holter Monitor 48 Hr Rimma Ramirez MD [facility] [address] [place] [address] Phone: tel: fax: Referral ID Status Reason Start Date Expiration Date Visits Re quested Visits Authorized [id number] Closed 05/29/2018 06/29/2019 1 1 Reason for Visit * Reason Comments Consult Encounter Details Date Type Department Care Team (Late st Contact Info) Description 05/29/2018 11:15 AM CDT Office Visit [facility] [address] [place] [address] Rimma Ramirez MD Consult Social History Tobacco Use Types Packs/Day Years [...] on file Sexual Orientation Not on file documented as of this encounter Last Filed Vital Signs Vital Sign Reading Time Taken Comments Blood Pressure 132/86 05/29/2018 11:27 AM CDT Pulse 126 05/29/2018 11:27 AM CDT Temperature - - Respiratory Rate 20 05/29/2018 11:27 AM CDT Oxygen Saturation 98% 05/29/2018 11:27 AM CDT Inhaled Oxygen Concentration - - Weight 112 kg (247 lb) 05/29/2018 11:27 AM CDT Height 162.6 cm (5' 4 ) 05/29/2018 11:27 AM CDT Body Mass Index 42.4 05/29/2018 11:27 AM CDT Body Mass Index Percentile 99.42% 05/29/2018 11: 27 AM CDT Growth Chart: [facility] (Girls, 2- 20 Years) documented in this encounter Patient Instructions * Patient Instructions* Geoff Gonzalez RN - 05/29/2018 11:15 AM CDT Future Appointments Date Time Provider Department Center 06/08/2018 3:30 PM [place] [facility] [place] [facility] ON 06-08-18, ARRIVE AT 1:45 FOR A 2:00 TEST AND THEN YOUR HOLTER WILL BE AT 3:30 PM. documented in this encounter Progress Notes * SHANIKA Tan - 05/29/2018 11:15 AM CDT Reason for Visit: Consult History of Present Illness: This is an initial evaluation for tachycardia. 17-year-old female with no known cardiac problems in the past, presents for evaluation of syncope episodes, 3 episodes in the last 1 month. Patient reports that these are usually nonexertional, patient is standing or sometimes sitting; she feels that her heart is beating very fast, then she notices chest tightness and someshortness of breath. This is followed by loss of consciousness. Within a few minutes she recovered completely. She was told that her pulse is high during her routine physical examination approximately 6 months ago. For the last 6 months she has been keeping a close eye on her apple iWatch and her pulse has been ranging between 100-160s. Patient is able to walk 4 miles, limited because of mild shortness of breath and some chest discomfort described as tightness. Her BMI is 42. She denies any drugs or smoking or alcohol. Recommendations and Plan: It is unclear if her tachycardia is related to paroxysmal SVT episodes are this is more of a chronic problem including something like inappropriate sinus tachycardia are posteriorly orthostatic tachycardia. There is a slight hint of accessory pathway on the EKG that was done at the recent hospital stay, however repeat EKG in the clinic today did not suggest any accessory pathway. I will check a 48 hour Holter monitor and a TTE. Medications: Current Outpatient Medications: ??? citalopram 20 MG tablet, Take 20 mg by mouth daily., Disp: , Rfl: ??? medroxyPROGESTERone injection, INJ 1 ML IM Q 3 MONTHS UTD, Disp: , Rfl: 4 ??? omeprazole 40 MG capsule, Take 40 mg by mouth daily., Disp: , Rfl: No Known Allergies Past Medical History: Diagnosis Date ??? Anxiety ??? Depression ??? GERD (gastroesophageal reflux disease) ??? Migraine Past Surgical History: Procedure Laterality Date ??? ANKLE FRACTURE SURGERY Social History Socioeconomic History ??? Marital status: Single Spouse name: Not on file ??? Number of children: Not on file ??? Years of education: Not on file ??? Highest education level: Not on file Social Needs ??? Financial resource strain: Not on file ??? Food insecurity - worry: Not on file ??? Food insecurity - inability: Not on file ??? Transportation needs - medical: Not on file ??? Transportation needs - non-medical: Not on file Occupational History ??? Not on file Tobacco Use ??? Smoking status: Never Smoker ??? Smokeless tobacco: Never Used Substance and Sexual Activity ??? Alcohol use: No Frequency: Never ??? Drug use: No ??? Sexual activity: Not on file Other Topics Concern ??? Exercise Yes ??? Special Diet No ??? Caffeine Concern No Social History Narrative ??? Not on file Family History Problem Relation Age of Onset ??? CHF Maternal Grandmother ??? Open Heart Maternal Grandmother ??? CHF Paternal Grandmother Family Status Relation Name Status ??? Mother Alive ??? Father Alive ??? MGM ??? PGM Review of Systems Constitutional: Negative for recent unintentional weight gain, recent unintentional weight loss andnew or significant fatigue. HENT: Negative for new or significant hearing loss. Eyes: Negative for blurred vision and double vision. Respiratory: Positive for shortness of breath. Negative for cough and snoring. Cardiovascular: See HPI Positive for chest pain, palpitations and leg swelling. Gastrointestinal: Negative for blood in stool and melena. Genitourinary: Negative for dysuria. Musculoskeletal: Negative for myalgias and new or worsening joint stiffness/pain. Skin: Negative for rash. Neurological: Negative for tingling/numbness and focal weakness. Endo/Heme/Allergies: Negative for new or significant bruising/bleeding and polydipsia. Psychiatric/Behavioral: Negative for depression and new or significant memory loss. Filed Vitals: 05/29/18 1127 BP: 132/86 Pulse: 126 Resp: 20 SpO2: 98% Weight: 112 kg (247 lb) Height: 5' 4 (1.626 m) Body mass index is 42.4 kg/m??. Physical Exam Constitutional: She is oriented to person, place, and time. She appears well- developed and well-nourished. No distress. obesity HENT: Nose: No mucosal edema. Mouth/Throat: Oropharynx is clear and moist and mucous membranes are normal. No oropharyngeal exudate. Neck: Neck supple. No JVD present. Carotid bruit is not present. Cardiovascular: Normal rate, regular rhythm, S1 normal, S2 normal and intact distal pulses. No extrasystoles are present. Exam reveals no gallop. No murmur heard. Pulmonary/Chest: Effort normal and breath sounds normal. No respiratory distress. Abdominal: She exhibits no mass. There is no hepatosplenomegaly. There is no tenderness. Musculoskeletal: She exhibits no deformity. Neurological: She is alert and oriented to person, place, and time. Skin: Skin is warm and dry. No erythema. Psychiatric: She has a normal mood and affect. Her behavior is normal. Thought content normal. Diagnoses/Impression: 1. Syncope, unspecified syncope type ELECTROCARDIOGRAM (NON MIDMARK ACQUIRED) USE ECHOCARDIOGRAM HOLTER MONITOR 48 HR REC 2. Palpitations ELECTROCARDIOGRAM (NON MIDMARK ACQUIRED) USE ECHOCARDIOGRAM HOLTER MONITOR 48 HR REC 3. Tachycardia Referring Provider: No ref. provider found PCP: ALBERT BROWN MD documented in this encounter Plan of Treatment Not on file documented as of this encounter Results * Holter Monitor 48 Hr (06/08/2018) Rimma Ramirez MD HOLTER Final Re sult documented in this encounter Visit Diagnoses Diagnosis Syncope, unspecified syncope type- Primary Palpitations Tachycardia Tachycardia, unspecified documented in this encounter Care Teams Drafter Heating And Ventilating Relationship Specialty Start Date End Date Albert Brown MD [address] [address] PCP - General FAMILY PRACTICE 05/16/18 documented as of this encounter
--- OUTSIDE RECORDS SUMMARY | 2024-08-27 04:46 | XMS_ITS | Encounter Summary ---
Author Organization [facility] Address [address] [place] [address]. [place] [address] [place] [address] Care Team Providers Care Cw Operator Name Role Phone Albert Ruby MD Primary Care Provider [phone] Tremayne Shi MD Unavailable [phone] Reason for Visit * Reason Onset Date Comments Referral Request 04/22/2020 Encounter Details Date Type Department Care Team (Late st Contact Info) Description 04/22/2020 Telephone [facility] Family and Sports Medicine - [place] [address] [place] [address] Albert Ruby MD [address] [facility] [address] [place] [address] Referral Request Social History Tobacco Use Types [...] Progress Notes * Linda Ross CMA - 04/23/2020 10:39 AM CDTAddended by: LINDA ROSS on: 04/23/2020 10:39 AM Modules accepted: Orders * Daksha Caruso MA - 04/22/2020 3:15 PM CDT Pt needs a referral for ortho and GI but it needs to be in [place]. M[place] request. [place] documented in this encounter Plan of Treatment Not on file documented as of this encounter Visit Diagnoses Diagnosis Encounter for general health examination- Primary Routine general medical examination at a health care facility documented in this encounter Additional Health Concerns Assessment Noted Time PHQ-9 Depression Total Score: 9 08/05/20 19 9:19 AM PERIANESTHESIA NURSE documented as of this encounter Care Teams Cw Operator Relationship Specialty Start Date End Date Albert Ruby MD [address] [place] [address] [facility] [place] [address] PCP - General FAMILY PRACTICE 05/16/18 T[facility] MD [facility] [place], [place] [id number] EP Lawn Mower Sharpener CARDIOVASCULAR DISEASE 08/15/18 documented as of this encounter
--- OUTSIDE RECORDS SUMMARY | 2024-08-27 04:46 | XMS_ITS | Encounter Summary ---
Author Organization [facility] Address [address] [place] [address]. [place] [address] Care Team Providers Care Caseworker Name Role Phone Albert Ruby MD Primary Care Provider [phone] Tremayne Shi MD Unavailable [phone] Encounter Details Date Type Department Care Team (Latest Contact Info) Description 04/10/2020 Travel Social History Tobacco Use Types Packs/Day [...] Total Score: 9 08/05/20 19 9:19 AM CROSSING SUPERVISOR documented as of this encounter Care Teams Caseworker Relationship Specialty Start Date End Date Albert Ruby MD [address] [place] [address] PCP - General FAMILY PRACTICE 05/16/18 Tremayne Shi MD [address] [place] [address] EP Glass Cut Off Tender CARDIOVASCULAR DISEASE 08/15/18 documented as of this encounter
--- OUTSIDE RECORDS SUMMARY | 2024-08-27 04:46 | XMS_ITS | Encounter Summary ---
Author Organization [facility] Address [address] [place] [address]. [place] [address] [place] [address] Care Team Providers Care All Around Gear Machine Operator Name Role Phone Unavailable Primary Care Provider Unavailabl e Encounter Details Date Type Department Care Team (Late st Contact Info) Description 08/02/2017 Abstract [facility] Family Medicine - [place] [address] [facility], [address] [place] [address] Albert Ruby MD [address] [place] [address] [address] [place] [address] Social History Tobacco Use Types Packs/Day Years Used Date Smoking Tobacco: Never Assessed Comments Unknown Sex and Gender Information Value Date Recorded Sex Assigned at Not on file Legal Sex Female 4:55 PM CDT Gender Identity Not on file Sexual Orientation Not on file documented as of this encounter Last Filed Vital Signs Vital Sign Reading Time Taken Comments Blood Pressure 140/88 08/02/2017 1:16 PM HUMAN RESOURCES PSYCHOLOGIST Pulse - - Temperature - - Respiratory Rate - - Oxygen Saturation - - Inhaled Oxygen Concentration - - Weight 109.3 kg (241 lb) 08/02/2017 1:16 PM HUMAN RESOURCES PSYCHOLOGIST Height 165.1 cm (5' 5 ) 08/02/2017 1:16 PM HUMAN RESOURCES PSYCHOLOGIST Body Mass Index 40.1 08/02/2017 1:16 PM HUMAN RESOURCES PSYCHOLOGIST Body Mass Index Percentile 99.17% 08/02/2017 1:1 6 PM HUMAN RESOURCES PSYCHOLOGIST Growth Chart: CDC (Girls, 2- 20 Years) documented in this encounter Progress Notes * Albert Ruby MD - 08/02/2017 1:40 PM CST Reason For Visit Medication refills Chronic Recheck Visit History of Present Illness HPI Free Text: 16 yo WAF for f/u on anxiety meds. feels that she needs increased meds Review of Systems Constitutional: no fever and no headache. ENT: no earache and no hearing loss. Cardiovascular: the heart rate was not slow and the heart rate was not fast. Respiratory: no shortness of breath and no wheezing. Gastrointestinal: no abdominal pain and no constipation. Genitourinary: no pelvic pain. Integumentary: no itching. Active Problems 1. Allergic rhinitis (477.9) (J30.9) 2. Insomnia (780.52) (G47.00) Family History Mother 1. No pertinent family history Family History 2. Family history of cardiac disorder (V17.49) (Z82.49) 3. Family history of diabetes mellitus (V18.0) (Z83.3) 4. Family history of hypertension (V17.49) (Z82.49) Social History ?? Never a smoker Current Meds 1. Citalopram Hydrobromide 20 MG Oral Tablet; TAKE 1 TABLET BY MOUTH EVERY DAY Requested for: 12May2017; Last Rx:[id number] Ordered 2. HydrOXYzine HCl - 25 MG Oral Tablet; TAKE 1 TABLET BY MOUTH EVERY 4 TO 6 HOURS NEEDED; Therapy: [id number] to (Evaluate:18Jul2017) Requested for: 03Jul2017; Last Rx:[id number] Ordered 3. HydrOXYzine Pamoate 25 MG Oral Capsule; TAKE 1 CAPSULE BY MOUTH AT NIGHT NEEDED FOR SLEEP; Therapy: [id number] to (Evaluate:22Jun2017) Requested for: [id number]; Last Rx:[id number] Ordered 4. HydrOXYzine Pamoate CAPS; Therapy: (Recorded:[id number]) to Recorded 5. Montelukast Sodium 10 MG Oral Tablet; TAKE 1 TABLET DAILY; Therapy: [id number] to (Evaluate:22Jul2017); Last Rx:[id number] Ordered 6. ZyrTEC Allergy 10 MG Oral Tablet; TAKE 1 TABLET DAILY DIRECTED; Therapy: [id number] to (Evaluate:20Sep2017); Last Rx:[id number] Ordered Allergies 1. No Known Drug Allergies Vitals Recorded: 02Aug2017 01:16PM Systolic 140 Diastolic 88 Height 5 ft 5 in Weight 241 lb BMI Calculated 40.1 BSA Calculated 2.14 BMI Percentile 99 % 2-20 Stature Percentile 62 % 2-20 Weight Percentile 99 % Physical Exam Head and Face - Palpation of the face and sinuses: Normal, no sinus tenderness. Eyes - Conjunctiva and lids: No injection, edema or discharge. Pupils and irises: Equal, round, reactive to light bilaterally. Ears, Nose, Mouth, and Throat - External inspection of ears and nose: Normal without deformities ordischarge. Oropharynx: Moist mucosa, normal tongue and tonsils without lesions. Neck - Neck: Supple, symmetric, no masses. Pulmonary - Respiratory effort: Normal respiratory rate and rhythm, no increased work of breathing.Auscultation of lungs: Clear bilaterally. Cardiovascular - Auscultation of heart: Regular rate and rhythm, normal S1 and S2, no murmur. Assessment 1. Insomnia (780.52) (G47.00) 2. Anxiety (300.00) (F41.9) Plan Anxiety 1. ARIPiprazole 2 MG Oral Tablet (Abilify); TAKE 1 TABLET DAILY DIRECTED Rx By: Albert Ruby; Dispense: 90 Days ; #:90 Tablet; Refill: 3; For: Anxiety; HORACIO = N; Sent To: [facility] [id number] Discussion/Summary A&P 1- Anxiety: stable. continue current care f/u 1 month Signatures Electronically signed by : Albert Ruby M.D.; Aug 02 2017 1:35PM HUMAN RESOURCES PSYCHOLOGIST (Author) documented in this encounter Plan of Treatment Not on file documented as of this encounter Visit Diagnoses Not on filedocumented in this encounter
--- OUTSIDE RECORDS SUMMARY | 2024-08-27 04:46 | XMS_ITS | Encounter Summary ---
Author Organization [facility] Address [address] [place] [address]. [place], [place] [address] [place] [address] Care Team Providers Care Line Crewman Name Role Phone Vania Ruby MD Primary Care Provider [phone] Bailey Izaguirre MD Unavailable [phone] Reason for Visit * Reason Comments Tachycardia feeling lightheaded Encounter Details Date Type Department Care Team (Late st Contact Info) Description 05/23/2019 10:30 AM CDT Office Visit [facility] [address] [place], [place] [id number] Bailey Izaguirre MD [facility]. [address] [place], [place] [id number] Tachycardia (feeling lightheaded ) Social History Tobacco Use Types Packs/Day [...] Sign Reading Time Taken Comments Blood Pressure 136/88 05/23/2019 10:39 AM CDT Pulse 109 05/23/2019 10:39 AM CDT Temperature - - Respiratory Rate - - Oxygen Saturation 96% 05/23/2019 10:39 AM CDT Inhaled Oxygen Concentration - - Weight 116.1 kg (256 lb) 05/23/2019 10:39 AM CDT Height 162.6 cm (5' 4 ) 05/23/2019 10:39 AM CDT Body Mass Index 43.94 05/23/2019 10:39 AM CDT documented in this encounter Patient Instructions * Patient Instructions* Shirley Cortes - 05/23/2019 10:30 AM CDT Images from the original note were not included. Patient Education Patient Education Tachycardia The Basics Written by the doctors and editors at [facility] What is tachycardia???--?? Tachycardia is the medical term for a heartbeat that is faster than normal. Sometimes, a fast heartbeat is a normal response to exercising or feeling very worried. But other times, a fast heartbeat is a sign of another problem. What causes tachycardia???--??Exercising or feeling worried, stressed, or afraid can all cause tachycardia. Other things that can cause tachycardia include: ?? Having too many drinks with caffeine, such as coffee, tea, or soda ?? Smoking or using chewing tobacco ?? Taking certain illegal drugs, such as cocaine ?? Having a fever Problems with your heart's electrical system can also cause tachycardia. Some people are born with these problems. Other people get them because of high blood pressure, a heart attack, or other heartproblems. What are the symptoms of tachycardia???--??Most people with tachycardia have no symptoms. But they might notice that their heart is beating fast, beating hard, or seems to skip a beat. These kinds ofheartbeat changes are called palpitations. Sometimes, a fast heartbeat makes it harder for your heart to pump blood to your body. This can cause symptoms such as: ?? Dizziness ?? Trouble breathing ?? Chest pain ?? Fainting Is there a test for tachycardia???--??Yes. Your doctor or nurse will probably do a test called an electrocardiogram. This test, also known as an ECG, measures the electrical activity in your heart (figure 1). You might also need other tests to see if another condition is causing your fast heartbeat. Should I see a doctor or nurse???--??If you have trouble breathing or have chest pain that lasts for more than a few minutes, call for an ambulance (in the [place] and [place], dial 9-1-1). If you do not have these problems, but you often feel your heart beating fast or irregularly, talk to your doctor or nurse. How is tachycardia treated???--??The treatment depends on the cause of the tachycardia. When your heartbeat is very fast, your doctor might suggest ways to slow it down. He or she might have you cough, or bear down as if you're having a bowel movement. He or she might also put an ice pack on your face. Doing these things can affect the nerve that helps control your heartbeat. Other treatments can include: ?? Medicines to control the speed or rhythm of your heartbeat ?? A treatment called cardioversion that involves applying a mild electrical current to the heartto fix its rhythm ?? A device called an implantable cardioverter defibrillator ( ICD for short) that the doctor can put in your body. The ICD can help make your heart rhythm normal using mild electrical currents. ?? Treatments called ablation. Ablation treatments use heat (called radiofrequency ablation ) orcold (called cryoablation ) to destroy the small part of the heart that is sending the abnormal electrical signals. ?? Surgery to create scar tissue in the heart. This will block the flow of the electrical signals that make your heart beat abnormal. Can tachycardia be prevented???--??If drinking too much caffeine or smoking caused your tachycardia, stopping those habits can prevent the problem. Heart disease can increase your chance of having tachycardia. Doing things that keep your heart healthy can help. This includes: ?? Eating lots of fruits and vegetables and low-fat dairy products, but not a lot of meat or fatty foods. ?? Walking or doing a physical activity on most days of the week. ?? Losing weight, if you are overweight. All topics are updated as new evidence becomes available and our peer review process is complete. This topic retrieved from [employer] on: January 30, 2019. Topic 51741 Version 12.0 Release: 27.2.3 - C27.145 ?2019??[employer]. and/or its affiliates.??All rights reserved. figure 1: Person having an ECG This drawing shows a man having an ECG (also called an electrocardiogram or EKG). He has patches, called electrodes, stuck onto his chest, arms, and legs. Wires run from the electrodes to the ECG machine. An ECG measures the electrical activity in the heart. Graphic 97494 Version 2.0 Consumer Information Use and Disclaimer This information [...] or not to accept your health care provider's advice, instructions or recommendations. Only your health care provider has the knowledge and training to provide advice that is right for you.The use of [employer] content is governed by the [employer] Terms of Use. ??2019 [employer]. All rights reserved. Copyright ?2019??[employer]. and/or its affiliates.??All rights reserved. documented in this encounter Progress Notes * Vega Daley CMA - 05/23/2019 10:30 AM CDTAddended by: VEGA DALEY on: 05/23/2019 11:25 AM Modules accepted: Orders * Bailey Izaguirre MD - 05/23/2019 10:30 AM CDT Images from the original note were not included. [place], [place] [address] Cardiac Electrophysiology Outpatient Progress Note Patient name: Pranay Finley Primary Care Provider: VANIA RUBY MD Chief Complaint: Palpitations History of Present Illness Pranay Finley is a 18-year-old female with a history of obesity, syncope referred for follow upevaluation of palpitations. She was seen by me initially in clinic on 08/23/18 and started on Corlanor at her last visit in September. She did not find relief of her symptoms with metoprolol previously. She says she still has intermittent palpitions on the Corlaner recently. She says initially it wasworking well. She says her heart rate at times is between 120-140 bpm. Normally she initially her heart rate was under 80 at rest but now running higher and usually in the 100-120 bpm range. She has had some light headedness and palpitations with the episodes. This is particular worse with activities. She has had no further syncope, but has been presyncopal. Assessment and Plan Mrs. Finley is a 18-year-old female with a history of obesity here today for evaluation palpitations/tachycardia. 1. Inappropriate sinus tachycardia: Prior workup was unrevealing for evidence of structural heart disease, anemia, or metabolic disorders causing her heart rate variations. ECG today remains consistent with sinus tachycardia. She continues to have symptoms which have slightly improved with Corlanor, but now worsening again associated with elevated HR at rest. -Will increase corlanor dose to 7.5 mg bid to help alleviate symptoms. - Encouraged continued aggressive hydration, would continued to watch intake salt given borderline hypertension. - She will follow up in 2-3 months when home from break at school to reevaluate symptoms. 2. History of Syncope: No further episodes. Prior workup unrevealing. No structural heart disease. Possibly vasovagal in etiology. - If recurrence will consider Tilt or loop recorder placement. Follow up in 2-3 months History Review of Systems Constitutional: Negative. HENT: Negative. Eyes: Negative. Respiratory: Negative. Cardiovascular: Positive for palpitations. Gastrointestinal: Negative. Genitourinary: Negative. Musculoskeletal: Negative. Skin: Negative. Neurological: Negative. Endo/Heme/Allergies: Negative. Current Problems: Patient Active Problem List Diagnosis ??? Syncope ??? Palpitations ??? Tachycardia Past Medical History: Past Medical History: Diagnosis [...] Maternal Grandmother ??? CHF Paternal Grandmother Allergies: No Known Allergies Current Medications: Patient's Medications New Prescriptions No medications on file Previous Medications CITALOPRAM 20 MG TABLET TAKE 1 TABLET BY MOUTH EVERY DAY IVABRADINE (CORLANOR) 5 MG TABLET Take 1 tablet (5 mg total) by mouth 2 (two) times daily with meals. Prior Auth APPROVED 09-26-18 through 12-25-18. NORELGESTROMIN-ETHINYL ESTRADIOL 150-35 MCG/24HR PACKET Place 1 patch onto the skin once a week. NORGESTIMATE-ETHINYL ESTRADIOL (ORTHO TRI-CYCLEN, 28,) 0.18/0.215/0.25 MG-35 MCG TABLET Take 1 tablet by mouth daily. OMEPRAZOLE 40 MG CAPSULE Take 40 mg by mouth daily. Modified Medications No medications on file Discontinued Medications No medications on file Physical Exam Filed Vitals: 05/23/19 1039 BP: 136/88 Pulse: 109 SpO2: 96% Weight: 116.1 kg (256 lb) Height: 5' 4 (1.626 m) Physical Exam: In general, Mrs. Finley laying [...] oriented x 3. Relevant Data Reviewed: Labs: No results found for: NA, K, CR, AST, ALT, HGB, HCT, PLT, WBC, TROP, TSH, INR, BNP Echo: 05/2018: Normal LV size and function EKG: Sinus tachycardia, non specific ST/T wave changes MD [facility] Cardiac [facility]rophysiology ; ext. [phone] Pager: [phone] 05/23/2019 10:52 AM documented in this encounter Plan of Treatment Not on file documented as of this encounter Procedures Procedure Name Priority Date/Time Associated Diagnosis Comments ELECTROCARDIOGRAM (NON MIDMARK ACQUIRED) Routine 05/23/2019 10:44 AM CDT Inappropriate sinus tachycardia documented in this encounter Results * ELECTROCARDIOGRAM (05/23/2019 10:44 AM CDT) 05/23/2019 10:4 4 AM CDT Narrative [facility] - 05/23/2019 10:51 AM CDT ?[facility] ? Test Date: ?2019-05-23 Pat Name: ? PRANAY BEARDENER ?Department: ? Room: ? Gender: ? Female ? Insole Tacker: ?? rk : ?2000 ? Requested By: BAILEY IZAGUIRRE Order Number: [id number] ?Reading : ?? Bailey Izaguirre ? Measurements Intervals ?[place] ? Rate: ? 112 ?P: ?49 MN: ? 125 ?QRS: ?34 QRSD: ? 94 ? T: ?-11 QT: ? 332 ? QTc: ?454 ? Interpretive Statements SINUS TACHYCARDIA NONSPECIFIC T-WAVE ABNORMALITY ABNORMAL RHYTHM ECG Procedure Note Bailey Izaguirre MD - 05/23/2019 [facility] Test Date: 2019-05-23 Pat Name: PRANAY LISA Department: Room: Gender: Female Insole Tacker: jesus : 2000 Requested By: BAILEY IZAGUIRRE Order Number: [id number] Reading MD: Bailey Izaguirre Measurements Intervals [place] Rate: 112 P: 49 MN: 125 QRS: 34 QRSD: 94 T: -11 QT: 332 QTc: 454 Interpretive Statements SINUS TACHYCARDIA NONSPECIFIC T-WAVE ABNORMALITY ABNORMAL RHYTHM ECG us Bailey Izaguirre MD PROCEDURES-ORDERABLE NO SUDHA RGE Final Result [facility] [address] [place] [address] documented in this encounter Visit Diagnoses Diagnosis Inappropriate sinus tachycardia (CMS/HCC [facility]/HCC)- Primary Other specified cardiac dysrhythmias Syncope, unspecified syncope type documented in this encounter Care Teams Line Crewman Relationship Specialty Start Date End Date Vania Ruby MD [address] [place] [address] [address] [place], [place] [phone] PCP - General FAMILY PRACTICE 05/16/18 Bailey Izaguirre MD [facility]. [address] [place], [place] [id number] EP [facility] Nurse CARDIOVASCULAR DISEASE 08/15/18 documented as of this encounter
--- OUTSIDE RECORDS SUMMARY | 2024-08-27 04:46 | XMS_ITS | Encounter Summary ---
Author Organization [facility] Address [address] [place] [address]. [place], [place] [address] [place] [address] Care Team Providers Care Machine Grainer Name Role Phone Albert Brown MD Primary Care Provider [phone] Tremayne Shi MD Unavailable [phone] Reason for Visit * Reason Comments Tachycardia establish care Encounter Details Date Type Department Care Team (Late st Contact Info) Description 08/23/2018 10:30 AM ADULT SCHOOL TEACHER Office Visit [facility] at [facility] [address] [place] [address] Tremayne Shi MD [facility]. [facility] [address] [place] [address] Tachycardia (establish care ) Social History Tobacco Use Types Packs/Day [...] Sign Reading Time Taken Comments Blood Pressure 126/80 08/23/2018 10:41 AM ADULT SCHOOL TEACHER Pulse 116 08/23/2018 10:41 AM ADULT SCHOOL TEACHER Temperature - - Respiratory Rate - - Oxygen Saturation 99% 08/23/2018 10:41 AM ADULT SCHOOL TEACHER Inhaled Oxygen Concentration - - Weight 114.3 kg (252 lb) 08/23/2018 10:41 AM ADULT SCHOOL TEACHER Height 162.6 cm (5' 4 ) 08/23/2018 10:41 AM ADULT SCHOOL TEACHER Body Mass Index 43.26 08/23/2018 10:41 AM ADULT SCHOOL TEACHER Body Mass Index Percentile 99.50% 08/23/2018 10: 41 AM ADULT SCHOOL TEACHER Growth Chart: [facility][NOTE 3] (Girls, 2- 20 Years) documented in this encounter Patient Instructions * Patient Instructions* Shirley Cortes - 08/23/2018 10:30 AM ADULT SCHOOL TEACHER Images from the original note were not included. Patient Education Patient Education Tachycardia The Basics Written by the doctors and editors at [facility] What is tachycardia???--?? Tachycardia is the medical term for a heartbeat that is faster than normal. Sometimes, a fast heartbeat is a normal response to exercising or feeling very worried. But other times, a fast heartbeat is a sign of another problem. What causes tachycardia???--??Exercising or feeling worried, stressed, or afraid can all cause tachycardia. Other things that can cause tachycardia include: ?Having too many drinks with caffeine, such as coffee, tea, or soda ?Smoking or using chewing tobacco ?Taking certain illegal drugs, such as cocaine ?Having a fever Problems with your heart's electrical [...] body. This can cause symptoms such as: ?Dizziness ?Trouble breathing ?Chest pain ?Fainting Is there a test for tachycardia???--??Yes. Your doctor or nurse will probably do a test called an electrocardiogram. This test, also known as an ECG or EKG, measures the electrical activity in your heart [...] control your heartbeat. Other treatments can include: ?Medicines to control the speed or rhythm of your heartbeat ?A treatment called cardioversion that involves applying a mild electrical current to the heart to fix its rhythm ?A device called an implantable cardioverter defibrillator ( ICD for short) that the doctor can put in your body. The ICD can help make your heart rhythm normal using mild electrical currents. ?A device called a pacemaker that the doctor can put in your body. The pacemaker sends electrical signals to your heart to control your heartbeat. ?Treatments called ablation. Ablation treatments use heat (called radiofrequency ablation ) or cold (called cryoablation ) to destroy the small part of the heart that is sending the abnormal electrical signals. ?Surgery to create scar tissue in the heart. This will block the flow of the electrical signals that make your heart beat abnormal. Can tachycardia be prevented???--??If drinking too much caffeine or smoking caused your tachycardia, stopping those habits can prevent the problem. Heart disease can increase your chance of having tachycardia. Doing things that keep your heart healthy can help. This includes: ?Eating lots of fruits and vegetables and low-fat dairy products, but not a lot of meat or fatty foods. ?Walking or doing a physical activity on most days of the week. ?Losing weight, if you are overweight. All topics are updated as new evidence becomes available and our peer review process is complete. This topic retrieved from [employer] on: Sep 14, 2017. Topic 45739 Version 8.0 Release: 25.6.2-122 - C26.3 ?2018??[employer]. and/or its affiliates.??All rights reserved. figure 1: Person having an ECG This drawing shows a man having an ECG (also called an electrocardiogram or EKG). He has patches, called electrodes, stuck onto his chest, arms, and legs. Wires run from the electrodes to the ECG machine. An ECG measures the electrical activity in the heart. Graphic 66208 Version 2.0 Consumer Information Use and Disclaimer [...] that is right for you.The use of [employer] content is governed by the [employer] Terms of Use. ??2018 [employer]. All rights reserved. Copyright ?2018??[employer]. and/or its affiliates.??All rights reserved. T SCHOOL TEACHER documented in this encounter Progress Notes * Tremayne Shi MD - 08/23/2018 10:30 AM CST Images from the original note were not included. [place], [place] [address] Cardiac Electrophysiology History and Physical Examination Patient name: Laura Finley Referring Provider: Ezio Primary Line Prep Cook: SHANIKA Tan Primary Care Provider: ALBERT BROWN MD Reason for referral: Palpitations Chief Complaint: Palpitations History of Present Illness Laura Finley is a 17-year-old female with a history of obesity, syncope referred for evaluation of palpitations. She was previously seen in [place] by Dr. Ramirez for the same issue. Rosendo notes her HR is always above 110- 115 bpm. She notes she always feels her heart rate racing in theform of palpitations. She has symptoms daily. She has intermittent associated symptoms of light headedness. She says when her heart rates get into the 120s she gets the light headedness sensation. She also gets light headed with activities such as running. She is unable to run because she feels like she is going to pass out every time she is going to run. She says with one lap in the pool she feels poorly. She wore a prior Holter in [place] which her average heart rate was 89. There was one episode of possible atrial tachycardia. She has felt her symptoms have worsened in the past few months. She gets chest pain discomfort with her symptoms. She reports one episode of syncope as well. She only had one episode of syncope which was in May when she broke her wrist. [place] was [place] she developed chest pain and just lost consciousness. She was out for about 10 seconds at the time. She says her TSH was normal and she was mildly anemic. She is currently symptomatic at rest with HR on exam in the low 100s. Assessment and Plan Ms. Finley is a 17-year-old female here today for evaluation of palpitations. 1. Tachycardia/Palpitations: Possible IST or POTS etiology given symptoms. However, Hotler showed HR within a normal range. Symptoms did not necessarily correlate with tachycardia on monitor. She is tachycardic on exam today, but surface 12 lead ECG performed prior to my exam with normal sinus rhythm and a borderline QT interval. Her echo in May showed no structural heart disease. - Will start empiric treatment with Metoprolol XL 25 mg daily with instructions to increase dose ifneeded to 50 mg after 1-2 weeks. - Will consider table tilt testing if no change in symptoms with metoprolol. 2. Syncope: Prior workup unrevealing. No structural heart disease. Holter showed a short run of AT which does not seem to be a cause. - Consider tilt as above if symptoms not improved with metoprolol, also could consider loop for long winder tender symptom monitoring if recurrent presyncope/syncope. Follow up in one month before she returns to college in [place] to re-assess symptoms. History Review of Systems Constitutional: Negative. HENT: Negative. Eyes: Negative. Respiratory: Negative. Cardiovascular: Positive for palpitations. Gastrointestinal: Negative. Genitourinary: Negative. Musculoskeletal: Negative. Skin: Negative. Neurological: Negative. Endo/Heme/Allergies: Negative. Current Problems: Patient Active Problem List Diagnosis ??? Syncope ??? Palpitations ??? Tachycardia Past Medical History: Past Medical History: Diagnosis Date ??? Anxiety ??? Depression ??? GERD (gastroesophageal reflux disease) ??? Migraine Past Surgical History: Past Surgical History: Procedure Laterality Date ??? ANKLE FRACTURE SURGERY Social History: Social History Tobacco Use ??? Smoking status: Never Smoker ??? Smokeless tobacco: Never Used Substance Use Topics ??? Alcohol use: No Frequency: Never ??? Drug use: No Family History: Family History Problem Relation Age of Onset ??? CHF Maternal Grandmother ??? Open Heart Maternal Grandmother ??? CHF Paternal Grandmother Allergies: No Known Allergies Current Medications: Medication List Accurate as of 08/23/18 10:43 AM. If you have any questions, ask your nurse or doctor. CONTINUE taking these medications citalopram 20 MG tablet Commonly known as: CELEXA TAKE 1 TABLET BY MOUTH EVERY DAY medroxyPROGESTERone injection Commonly known as: DEPO-PROVERA omeprazole 40 MG capsule Commonly known as: PRILOSEC Physical Exam Filed Vitals: 08/23/18 1041 BP: 126/80 Pulse: 116 SpO2: 99% Weight: 114.3 kg (252 lb) Height: 5' 4 (1.626 m) Physical Exam: In general, Ms. Finley laying on the examination table in no acute distress. Appears stated age. Mucous membranes moist. No oropharyngeal exudates. Sclera anicteric. Neck is supple. Normal carotid upstroke. No carotid bruits. JVP is not elevated at 45 degrees. Cardiac exam reveals a tachycardic rate and normal rhythm. Normal S1 and S2 without murmurs, rubs, gallops. Radial pulses are 2+. Lungs clear to auscultation bilaterally without wheezes, rales, or rhonchi. Abdomen is soft, nontender, and non distended with normoactive bowel sounds. There is no guarding or rebound tenderness. No abdominal bruit.There are no skin lesions or significant ecchymosis. No lower extremity edema. Her mood is normal with a normal affect and she is alert and oriented x 3. Relevant Data Reviewed: Labs: No results found for: NA, K, CR, AST, ALT, HGB, HCT, PLT, WBC, TROP, TSH, INR, BNP Echo: 05/2018: Normal LV size and function EKG: NSR, slight mid precordial repolarization disturbance. Borderline pronloged QT interval (~440 ms) Holter: 48 hours: HR 56-160 bpm. Rare ectopy. One episode of SVT, likely AT at 160 bpm. Most symptoms correlated with sinus rhythm. Tremayne hSi MD [facility] Cardiac Electrophysiology ; ext. [phone] Pager: [phone] 08/23/2018 10:43 AM T SCHOOL TEACHER documented in this encounter Plan of Treatment Not on file documented as of this encounter Procedures Procedure Name Priority Date/Time Associated Diagnosis Comments ELECTROCARDIOGRAM (NON MIDMA RK ACQUIRED) Routine 08/23/2018 Tachycardia documented in this encounter Results * ELECTROCARDIOGRAM (08/23/2018) Tremayne Shi MD PROCEDURES-ORDERABLE NO SUDHA RGE Final Result documented in this encounter Visit Diagnoses Diagnosis Tachycardia- Primary Tachycardia, unspecified Syncope, unspecified syncope type documented in this encounter Care Teams Machine Grainer Relationship Specialty Start Date End Date Albert Brown MD [address] [place] [address] [address] [place] [address] PCP - General FAMILY PRACTICE 05/16/18 [facility]ayne Shi [facility] [address] [place] [address] EP Line Prep Cook CARDIOVASCULAR DISEASE 08/15/18 documented as of this encounter
--- OUTSIDE RECORDS SUMMARY | 2024-08-27 04:46 | XMS_ITS | Encounter Summary ---
Author Organization [facility] Address [address] [place] [address]. [place] [address] Care Team Providers Care Contractor General Building Name Role Phone Unavailable Primary Care Provider Unavailabl e Encounter Details Date Type Department Care Team (Latest Contact Info) Description 2017 Abstract [facility] Medical Group Social History Tobacco Use Types Packs/Day [...]
--- OUTSIDE RECORDS SUMMARY | 2024-08-27 04:46 | XMS_ITS | Encounter Summary ---
Author Organization [facility] Address [address] [place] [address]. [place] [address] Care Team Providers Care Manager Fiber Name Role Phone Albert Ruby MD Primary Care Provider [phone] Tremayne Shi MD Unavailable [phone] Encounter Details Date Type Department Care Team (Latest Contact Info) Description 02/21/2020 Travel Social History Tobacco Use Types Packs/Day [...] Date Recorded PHQ-2 Score 2 08/06/2019 Comments Unknown Sex and Gender Information Value [...] have Coronavirus / COVID-19? No / Unsure 02/21/2020 9:57 AM CDT documented as of this encounter Plan of Treatment Not on file documented as of this encounter Visit Diagnoses Not on filedocumented in this encounter Additional Health Concerns Assessment Noted Time PHQ-9 Depression Total Score: 9 08/05/20 19 9:19 AM RN DIALYSIS documented as of this encounter Care Teams Manager Fiber Relationship Specialty Start Date End Date Albert Ruby MD [address] [facility] [address] PCP - General FAMILY PRACTICE 05/16/18 Tremayne Shi MD [address] [place] [address] EP Biofuels Production Associate CARDIOVASCULAR DISEASE 08/15/18 documented as of this encounter
--- OUTSIDE RECORDS SUMMARY | 2024-08-27 04:46 | XMS_ITS | Encounter Summary ---
Author Organization [facility] Address [facility] [facility]. [place], [place] [address] [place] [address] Care Team Providers Care Lockstitch Cup Setter Name Role Phone Albert Ruby MD Primary Care Provider [phone] Tremayne Shi MD Unavailable [phone] Encounter Details Date Type Department Care Team (Latest Contact Info) Description 05/24/2019 7:41 PM CDT - 05/24/2019 11:59 PM CDT Hospital Encounter [facility] [address] [place], [place] [address] Albert Ruby MD [address] [place] [address] [address] [place] [address] Discharge Disposition: Home or Self Care (Routine [...] Time of Discharge ALPRAZolam 0.25 MG tabletIndications :Palpitations,Tac hycardia,Anxiety, Obesity due to excess calories, unspecified classification, unspecified whether serious comorbidity present Take 1 tablet (0.25 mg total) by mouth nightly as needed for Sleep. 60 tablet 05/24/2019 10/23/2019 CITALOPRAM 20 MG tabletIndications :Depression TAKE 1 TABLET BY MOUTH EVERY DAY 30 tablet 04/17/2019 08/05/2019 ivabradine 7.5 MG tablet Take 1 tablet (7.5 mg total) by mouth 2 (two) times daily with meals. 60 tablet 6 05/23/2019 08/06/2019 norelgestromin-et hinyl estradiol 150-35 MCG/24HR packetIndications : control Place 1 patch onto the skin once a week. 3.08 patch 11 01/30/2019 08/05/2019 omeprazole 40 MG capsule Take 40 mg by mouth daily. 08/05/2019 venlafaxine XR (EFFEXOR XR) 37.5 MG 24 hr capsuleIndication s:Palpitations,Ta chycardia,Anxiety ,Obesity due to excess calories, unspecified classification, unspecified whether serious comorbidity present Take 1 capsule (37.5 mg total) by mouth daily for 30 days. 90 capsule 3 05/24/2019 06/23/2019 documented as of this encounter Plan of Treatment Not on file documented as of this encounter Procedures Procedure Name Priority Date/Time Associated Diagnosis Comments TSH W/REFLEX Routine 05/24/2019 10:20 AM CDT Palpitations Tachycardia Anxiety Obesity due to excess calories, unspecified classification, unspecified whether serious comorbidity present HEMOGLOBIN, GLYCOSYLATED Routine 05/24/2019 10:20 AM CDT Palpitations Tachycardia Anxiety Obesity due to excess calories, unspecified classification, unspecified whether serious comorbidity present COMPREHENSIVE METABOLIC PANEL Routine 05/24/2019 10:20 AM CDT Palpitations Tachycardia Anxiety Obesity due to excess calories, unspecified classification, unspecified whether serious comorbidity present LIPID PANEL Routine 05/24/2019 10:20 AM CDT Palpitations Tachycardia Anxiety Obesity due to excess calories, unspecified classification, unspecified whether serious comorbidity present CBC W/DIFF AUTOMATED Routine 05/24/2019 10:20 AM CDT Palpitations Tachycardia Anxiety Obesity due to excess calories, unspecified classification, unspecified whether serious comorbidity present THYROXINE, FREE (FT4) Routine 05/24/2019 10:20 AM CDT Palpitations Tachycardia Anxiety Obesity due to excess calories, unspecified classification, unspecified whether serious comorbidity present documented in this encounter Results * (ABNORMAL) CBC W/DIFF AUTOMATED (05/24/2019 10:20 AM CDT) WBC 10.3 4.5 - 13.0 x10'3/uL 05/24/2019 9:22 PM CDT [facility] RBC 4.76 4.20 - 5.40 x10'6/uL 05/24/2019 9:22 PM CDT [facility] HGB 11.9(L) 12.0 - 16.0 G/DL 05/24/2019 9:22 PM CDT [facility] HCT 39.2 38.0 - 48.0 % 05/24/2019 9:22 PM CDT [facility] MCV 82.4 81.0 - 99.0 FL 05/24/2019 9:22 PM CDT [facility] MCH 25.0(L) 27.0 - 31.0 PG 05/24/2019 9:22 PM CDT [facility] MCHC 30.4(L) 32.0 - 36.0 G/DL 05/24/2019 9:22 PM CDT [facility] RDW 15.5(H) 11.5 - 14.5 % 05/24/2019 9:22 PM CDT [facility] PLT 365 130 - 400 x10'3/uL 05/24/2019 9:22 PM CDT [facility] MPV 12.4(H) 9.3 - 12.2 FL 05/24/2019 9:22 PM CDT [facility] DIFFERENTIAL TYPE AUTOMATED DIFFERENTIAL 05/24/2019 9:22 PM CDT [facility] NEUTROPHILS % 59.1 % 05/24/2019 9:22 PM CDT [facility] LYMPHOCYTES % 33.1 % 05/24/2019 9:22 PM CDT [facility] MONOCYTES % 6.0 % 05/24/2019 9:22 PM CDT [facility] EOSINOPHILS 1.4 % 05/24/2019 9:22 PM CDT [facility] BASOPHILS 0.2 % 05/24/2019 9:22 PM CDT [facility] IMMATURE GRANS % 0.2 % 05/24/20 19 9:22 PM CDT [facility] ABS. NEUTROPHILS TOTAL 6.06 1.80 - 8.00 x10'3/uL 05/24/2019 9:22 PM CDT [facility] ABS. LYMPHOCYTES 3.40 1.20 - 5.20 x10'3/uL 05/24/2019 9:22 PM CDT [facility] ABS. MONOCYTES 0.62 0.24 - 0.86 x10'3/uL 05/24/2019 9:22 PM CDT [facility] ABS. EOSINOPHILS 0.14 0.04 - 0.36 x10'3/uL 05/24/2019 9:22 PM CDT [facility] ABS. BASOPHILS 0.02 0.01 - 0.08 x10'3/uL 05/24/2019 9:22 PM [facility] ABS. IMMATURE GRANULOCYTES 0.02 0.00 - 0.49 x10'3/uL 05/24/2019 9:22 PM T [facility] 05/24/2019 10:2 0 AM CDT Albert Ruby MD LABORATORY Final Result [facility] [address] [place] [address], [place] [phone] * HEMOGLOBIN, GLYCOSYLATED (05/24/2019 10:20 AM CDT) HGB A1C 5.2 4.2 - 6.3 % 05/24/2019 10:50 PM CDT [facility] Comment: ADA GUIDELINES 2010 5.7 TO 6.4% INCREASED RISK OF DIABETES > OR = 6.5% CONSISTENT WITH DIABETES ESTIMATED AVG GLUCOSE 103 mg/dL 05/24/2019 10:50 PM CDT [facility] 05/24/2019 10:2 0 AM CDT Albert Ruby MD LABORATORY Final Result [facility] [address] [place] [address], [place] [phone] * LIPID PANEL (05/24/2019 10:20 AM CDT) CHOLESTEROL 146 <200 MG/DL 05/24/2019 9:38 PM CDT [facility] TRIGLYCERIDES 83 <150 MG/DL 05/24/2019 9:38 PM CDT [facility] HDL 71 >40.0 MG/DL 05/24/2019 9:38 PM CDT [facility] LDL (CALCULATED) 58 <100 MG/DL 05/24/20 19 9:38 PM CDT [facility] NON HDL CHOLESTEROL 75 <130 MG/DL 05/24 9:38 PM CDT [facility] CHOL/HDL RATIO 2.1 0.0 - 4.5 05/24/2019 9:38 PM CDT [facility] VLDL CALCULATION 17 5 - 55 MG/DL 05/24/2019 9:38 PM CDT [facility] LIPID INTERPRETATION 05/24/2019 9:38 PM CDT [facility] Comment: NIH CONCENSUS REPORT RECOMMENDATIONS: ?ADULT ?CHILD ??LOW RISK: ?CHOLESTEROL ? <200 ? <170 ?TRIGLYCERIDE ?<150 ?--- ?HDL ? >=60 ?--- ?LDL ? <100 ? <110 ??BORDERLINE: ?CHOLESTEROL ? 200-239 ?? 170-199 ?TRIGLYCERIDE ?150-199 ? --- ?HDL ?40-59 ?--- ?LDL ? 100-159 ?? 110-129 ??HIGH RISK: ?CHOLESTEROL ? >=240 ?>=200 ?TRIGLYCERIDE ?>=200 ? --- ?HDL ?<40 ?--- ?LDL ? >=160 ?>=130 05/24/2019 10:2 0 AM CDT Albert Ruby MD LABORATORY Final Result Performing Organization Address [facility] Co de Phone Number [facility] [address] [place] [address], * TSH W/REFLEX (05/24/2019 10:20 AM CDT) TSH 1.870 0.358 - 3.74 uIU/ML 05/24/2019 9:38 PM CDT [facility] Comment: HIGH DOSES OF BIOTIN MAY INTERFERE WITH THIS TEST RESULT. CORRELATION TO CLINICAL HISTORY AND PRESENTATION RECOMMENDED. FREE T4 NOT INDICATED 05/24/2019 10:2 0 AM CDT Albert Ruby MD LABORATORY Final Result Performing Organization Address [facility] Co de Phone Number [facility] [address] [place] [address], * THYROXINE, FREE (FT4) (05/24/2019 10:20 AM CDT) FREE T4 1.09 0.76 - 1.46 NG/DL 05/24/2019 9:38 PM CDT [facility] 05/24/2019 10:2 0 AM CDT Albert Ruby MD LABORATORY Final Result Performing Organization Address [facility] Co de Phone Number [facility] [address] [place] [address], * (ABNORMAL) COMPREHENSIVE METABOLIC PANEL (05/24/2019 10:20 AM CDT) [facility] GLUCOSE 76 70 - 99 MG/DL 05/24/2019 9:38 PM CDT [facility] BUN 12 7 - 18 MG/DL 05/24/2019 9:38 PM CDT [facility] CREATININE S/P/B 0.80 0.55 - 1.02 MG/DL 05/24/2019 9:38 PM CDT [facility] SODIUM S/P/B 141 136 - 145 MMOL/L 05/24/2019 9:38 PM CDT [facility] POTASSIUM S/P/B 4.5 3.5 - 5.1 MMOL/L 05/24/2019 9:38 PM CDT [facility] CHLORIDE S/P/B 107 100 - 108 MMOL/L 05/24/2019 9:38 PM CDT [facility] CO2 25.5 21 - 32 MMOL/L 05/24/2019 9:38 PM CDT [facility] CALCIUM S/P/B 9.2 8.5 - 10.1 MG/DL 05/24/2019 9:38 PM T [facility] BILIRUBIN TOTAL S/P/B 0.4 0.2 - 1.1 MG/DL 05/24/2019 9:38 PM T [facility] TOTAL PROTEIN S/P/B 7.3 6.4 - 8.2 G/DL 05/24/2019 9:38 PM T [facility] ALBUMIN S/P/B 3.5 3.4 - 5.0 G/DL 05/24/2019 9:38 PM T [facility] AST 8(L) 15 - 37 U/L 05/24/2019 9:38 PM CDT [facility] ALT 16 14 - 55 U/L 05/24/2019 9:38 PM CDT [facility] ALKALINE PHOSPHATASE S/P/B 86 50 - 136 U/L 05/24/2019 9:38 PM CDT [facility] ANION GAP 8.5 5 - 15 MMOL/L 05/24/2019 9:38 PM CDT [facility] BUN CREATININE RATIO 15.0 6 - 26 05/24/2019 9:38 PM CDT [facility] A/G RATIO 0.9(L) 1.0 - 2.0 RATIO 05/24/2019 9:38 PM CDT [facility] EGFR NON-AFR. AMER. >90 >90 ML/MIN/1.7 3 M2 05/24/2019 9:38 PM CDT [facility] EGFR AFR. AMER. >90 >90 ML/MIN/1.7 3 M2 05/24/2019 9:38 PM CDT [facility] Comment: NOTE: eGFR is not calculated for patients <18 years of age. This is an estimated GFR (CKD EPI) and should not be used for calculating drug doses. 05/24/2019 10:2 0 AM CDT Albert Ruby MD LABORATORY Final Result [facility] [address] [place] [address], documented in this encounter Visit Diagnoses Diagnosis Palpitations Tachycardia Tachycardia, unspecified Anxiety Anxiety state, unspecified Obesity due to excess calories, unspecified classification, unspecified whether serious comorbidity present documented in this encounter Care Teams Lockstitch Cup Setter Relationship Specialty Start Date End Date Albert Ruby MD [address] [place] [address] PCP - General FAMILY PRACTICE 05/16/18 Tremayne Shi MD Three [facility]. [address] [id number] [place] [address] EP Full Service Supervisor CARDIOVASCULAR DISEASE 08/15/18 documented as of this encounter
--- OUTSIDE RECORDS SUMMARY | 2024-08-27 04:46 | XMS_ITS | Encounter Summary ---
Author Organization [facility] Address [address] [place] [address]. [place] [address] [place] [address] Care Team Providers Care Director Clinical Information Services Name Role Phone Albert Ruby MD Primary Care Provider [phone] Tremayne Shi MD Unavailable [phone] Reason for Visit * Reason Onset Date Comments Medication Problem 10/28/2019 resend script Encounter Details Date Type Department Care Team (Late st Contact Info) Description 10/28/2019 Telephone [facility] Medical Group Family and Sports Medicine - [place] [address] [place] [address] Albert Ruby MD [address] [facility] 200 [place] [address] Medication Problem (resend script) Social History Tobacco Use Types Packs/Day Years [...] of this encounter Progress Notes * Tory [place] Asif - 10/28/2019 1:36 PM CST Alprazolam 0.25mg script was sent to [facility] in [place] but needed to be sent to [facility] in [place]. Please resend. T TECHNICIAN documented in this encounter Plan of Treatment Not on file documented as of this encounter Visit Diagnoses Not on filedocumented in this encounter Additional Health Concerns Assessment Noted Time PHQ-9 Depression Total Score: 9 08/05/20 19 9:19 AM LIGHT TECHNICIAN documented as of this encounter Care Teams Director Clinical Information Services Relationship Specialty Start Date End Date Albert Ruby MD [address] [place] [address] [address] [place] [address] PCP - General FAMILY PRACTICE 05/16/18 Trem[facility] Shi MD [facility] [address] [place], [place] [address] EP Help Aid CARDIOVASCULAR DISEASE 08/15/18 documented as of this encounter
--- OUTSIDE RECORDS SUMMARY | 2024-08-27 04:46 | XMS_ITS | Encounter Summary ---
Author Organization [facility] Address [address] [place] [address]. [place] [address] Care Team Providers Care Machine Burrer Name Role Phone Unavailable Primary Care Provider Unavailabl e Encounter Details Date Type Department Care Team (Latest Contact Info) Description 08/07/2017 Abstract [facility] Medical Group Social History Tobacco Use [...]
--- OUTSIDE RECORDS SUMMARY | 2024-08-27 04:46 | XMS_ITS | Encounter Summary ---
Author Organization [facility] Address [address] [place] [address]. [place] [address] [place] [address] Care Team Providers Care Desktop Publishing Specialist Name Role Phone Albert Ruby MD Primary Care Provider [phone] Tremayne Shi MD Unavailable [phone] Reason for Visit * Reason Onset Date Comments Other 01/31/2019 Encounter Details Date Type Department Care Team (Late st Contact Info) Description 01/31/2019 Telephone [facility] Medical [facility] Family and Sports Medicine - [place] [address] [place] [address] Albert Ruby MD [address] [facility] 200 [place] [address] Other Social History Tobacco Use Types Packs/Day [...] as of this encounter Progress Notes * Traci Whitehead - 01/31/2019 10:14 AM CDT Patient was here yesterday and given a script for norelgestromin-ethinyl control. She put it on yesterday around 11:00am. Woke up this morning and has hives everywhere-she thinks she's allergicto the sticky part of the patch as her skin is very sensitive. She would like to try something in pill form. ISABEL- Jessica/Giovani Barry documented in this encounter Plan of Treatment Not on file documented as of this encounter Visit Diagnoses Diagnosis control- Primary Unspecified contraceptive management documented in this encounter Care Teams Desktop Publishing Specialist Relationship Specialty Start Date End Date Albert Ruby MD [address] [place] [address] [address] [facility] [place] [address] PCP - General FAMILY PRACTICE 05/16/18 [facility] [address] [place] [address] EP Head Of Product CARDIOVASCULAR DISEASE 08/15/18 documented as of this encounter
--- OUTSIDE RECORDS SUMMARY | 2024-08-27 04:46 | XMS_ITS | Encounter Summary ---
Author Organization [facility] Address [address] [place] [address]. [place], [place] [address] [place] [address] Care Team Providers Care Title One Teacher Name Role Phone Albert Ruby MD Primary Care Provider [phone] Tremayne Shi MD Unavailable [phone] Reason for Visit * Reason Onset Date Comments Appointment Reminder 12/02/2019 LMOM Encounter Details Date Type Department Care Team (Late st Contact Info) Description 12/02/2019 Telephone [facility] at [address] [address] Luis Alberto Orosco RMA Appointment Reminder (LMOM) Social History Tobacco Use Types Packs/Day Years [...] as of this encounter Progress Notes * MARGARITA Gardner - 12/02/2019 11:20 AM CDT Unable to reach patient. LMOM to return call./jf documented in this encounter Plan of Treatment Not on file documented as of this encounter Visit Diagnoses Not on filedocumented in this encounter Additional Health Concerns Assessment Noted Time PHQ-9 Depression Total Score: 9 08/05/20 19 9:19 AM POLE SHAVER HELPER documented as of this encounter Care Teams Title One Teacher Relationship Specialty Start Date End Date Albert Ruby MD [address] [place] [address] [address] [place] [address] PCP - General FAMILY PRACTICE 05/16/18 Tremayne Shi MD Three [facility]. [address] [place], [place] [address] EP Chief Data Officer CARDIOVASCULAR DISEASE 08/15/18 documented as of this encounter
--- OUTSIDE RECORDS SUMMARY | 2024-08-27 04:46 | XMS_ITS | Encounter Summary ---
Author Organization [facility] Address [address] [place] [address]. [place] [address] [place] [address] Care Team Providers Care Flame Burner Name Role Phone Unavailable Primary Care Provider Unavailabl e Encounter Details Date Type Department Care Team (Late st Contact Info) Description 01/23/2017 Abstract [facility] Medical [facility] Family Medicine - [place] [address] [facility], [address] [place] [address] Albert Ruby MD [address] [place] [address] [address] [place] [address] Social History Tobacco Use Types Packs/Day Years Used Date Smoking Tobacco: Never Assessed Comments Unknown Sex and Gender Information Value Date Recorded Sex Assigned at Not on file Legal Sex Female 4:55 PM CDT Gender Identity Not on file Sexual Orientation Not on file documented as of this encounter Last Filed Vital Signs Vital Sign Reading Time Taken Comments Blood Pressure 120/70 01/23/2017 9:40 AM CDT Pulse 67 01/23/2017 9:40 AM CDT Temperature - - Respiratory Rate - - Oxygen Saturation - - Inhaled Oxygen Concentration - - Weight 110.1 kg (242 lb 12. 8 oz) 01/23/2017 9:40 AM CDT Height 165.1 cm (5' 5 ) 01/23/2017 9:40 AM CDT Body Mass Index 40.4 01/23/2017 9:40 AM CDT Body Mass Index Percentile 99.35% 01/23/2017 9:4 0 AM CDT Growth Chart: CDC (Girls, 2- 20 Years) documented in this encounter Progress Notes * Albert Ruby MD - 01/23/2017 9:00 AM CDT Chief Complaint Establish care with PCP History of Present Illness HPI Free Text: 16 yo WAF, new patient to establish care. needs meningitis shot, going to college. Review of Systems Constitutional: no fever, no chills and not feeling poorly. Eyes: no eye pain, eyes not red and no purulent discharge from the eyes. ENT: no earache, no nasal discharge and no sore throat. Cardiovascular: no palpitations, no chest pain and no intermittent leg claudication. Respiratory: no shortness of breath and no cough. Gastrointestinal: no abdominal pain and no vomiting. Genitourinary: no dysuria. Family History Mother 1. No pertinent family history Family History 2. Family history of cardiac disorder (V17.49) (Z82.49) 3. Family history of diabetes mellitus (V18.0) (Z83.3) 4. Family history of hypertension (V17.49) (Z82.49) Social History ?? Never a smoker Current Meds 1. CeleXA 20 MG Oral Tablet; Therapy: (Recorded:23Jan2017) to Recorded Dispense: 0 Days ; #: Sufficient TABS; Refill: 0; HORACIO = N; Record; Last Updated By: Gerri Cabrera; 01/23/2017 9:24:38 AM 2. HydrOXYzine Pamoate CAPS; Therapy: (Recorded:23Jan2017) to Recorded Dispense: 0 Days ; #: Sufficient CAPS; Refill: 0; HORACIO = N; Record; Last Updated By: Gerri Cabrera; 01/23/2017 9:24:38 AM Allergies 1. No Known Drug Allergies Recorded By: Gerri Cabrera; 01/23/2017 9:24:38 AM Vitals Recorded: 23Jan2017 09:40AM Heart Rate 67 Systolic 120 Diastolic 70 O2 Saturation 99 Height 5 ft 5 in 2-20 Stature Percentile 62 % Weight 242 lb 12.8 oz 2-20 Weight Percentile 99 % BMI Calculated 40.4 BMI Percentile 99 % BSA Calculated 2.15 Physical Exam Constitutional - General appearance: No acute distress, well appearing and well nourished. Head and Face - Head and face: Normocephalic, atraumatic. Palpation of the face and sinuses: Normal, no sinus tenderness. Eyes - Conjunctiva and lids: No injection, edema or discharge. Ophthalmoscopic examination: Optic discs sharp. Ears, Nose, Mouth, and Throat - External inspection of ears and nose: Normal without deformities ordischarge. Oropharynx: Moist mucosa, normal tongue and tonsils without lesions. Neck - Neck: Supple, symmetric, no masses. Thyroid: No thyromegaly. Pulmonary - Respiratory effort: Normal respiratory rate and rhythm, no increased work of breathing.Auscultation of lungs: Clear bilaterally. Cardiovascular - Auscultation of heart: Regular rate and rhythm, normal S1 and S2, no murmur. Assessment 1. Well child visit (V20.2) (Z00.129) 2. Allergic rhinitis (477.9) (J30.9) 3. Insomnia (780.52) (G47.00) Plan Insomnia 1. HydrOXYzine HCl - 25 MG Oral Tablet; Take 1 every 4-6 hours as needed Rx By: Albert Ruby; Dispense: 0 Days ; #:1 X 90 Tablet Bottle; Refill: 0; For: Insomnia; HORACIO = N;Print Rx 2. Montelukast Sodium 10 MG Oral Tablet (Montelukast Sodium); TAKE 1 TABLET DAILY Rx By: Albert Ruby; Dispense: 90 Days ; #:1 X 90 Tablet Bottle; Refill: 1; For: Insomnia; HORACIO = N; Print Rx 3. ZyrTEC Allergy 10 MG Oral Tablet (Cetirizine HCl); TAKE 1 TABLET DAILY DIRECTED Rx By: Albert Ruby; Dispense: 120 Days ; #:1 X 120 Tablet Package; Refill: 1; For: Insomnia; HORACIO = N; Print Rx Discussion/Summary A&P 1- Needs Meningitis shot 2- AR: acute. meds given 3- Insomnia: acute. meds given f/u prn meningitis shot please Signatures Electronically signed by : Albert Ruby M.D.; Jan 23 2017 10:00AM SCREEN CLEANER (Author) documented in this encounter Plan of Treatment Not on file documented as of this encounter Visit Diagnoses Not on filedocumented in this encounter
--- OUTSIDE RECORDS SUMMARY | 2024-08-27 04:46 | XMS_ITS | Encounter Summary ---
Author Organization [facility] Address [address] [place] [address]. [place], [place] [address] [place] [address] Care Team Providers Care Ornamental Metal Erector Name Role Phone Vania Brown MD Primary Care Provider [phone] Izaguirre MD Unavailable [phone] Reason for Visit * Reason Comments Tachycardia 2 mo folow up Palpitations Encounter Details Date Type Department Care Team (Late st Contact Info) Description 08/06/2019 10:00 AM COMMODITY LOAN CLERK Office Visit [facility] at [facility], [facility] [address] [place] [address] Bailey Izaguirre MD [facility] [address] [place], [place] [id number] Tachycardia (2 mo folow up); Palpitations Social History Tobacco Use Types Packs/Day [...] Sign Reading Time Taken Comments Blood Pressure 128/80 08/06/2019 9:42 AM COMMODITY LOAN CLERK Pulse 85 08/06/2019 9:42 AM COMMODITY LOAN CLERK Temperature - - Respiratory Rate - - Oxygen Saturation 99% 08/06/2019 9:42 AM COMMODITY LOAN CLERK Inhaled Oxygen Concentration - - Weight 116.1 kg (256 lb) 08/06/2019 9:42 AM COMMODITY LOAN CLERK Height 162.6 cm (5' 4 ) 08/06/2019 9:42 AM COMMODITY LOAN CLERK Body Mass Index 43.94 08/06/2019 9:42 AM COMMODITY LOAN CLERK documented in this encounter Patient Instructions * Patient Instructions* Shirley Cortes - 08/06/2019 10:00 AM COMMODITY LOAN CLERK Images from the original note were not included. Patient Education Patient Education Tachycardia The Basics Written by the doctors and editors at [facility] What is tachycardia???--?? Tachycardia is the medical [...] process is complete. This topic retrieved from [employer] on: Apr 24, 2019. Topic 46258 Version 12.0 Release: 27.3.2 - C27.227 ?2019??[employer]. and/or its affiliates.??All rights reserved. figure 1: Person having an ECG This drawing shows a man having an ECG (also called an electrocardiogram or EKG). He has patches, called electrodes, stuck onto his chest, arms, and legs. Wires run from the electrodes to the ECG machine. An ECG measures the electrical activity in the heart. Graphic 18868 Version 2.0 Consumer Information Use and Disclaimer [...] that is right for you.The use of [employer] content is governed by the [employer] Terms of Use. ??2019 [employer]. All rights reserved. Copyright ?2019??[employer]. and/or its affiliates.??All rights reserved. ODITY LOAN CLERK documented in this encounter Progress Notes * Bailey Izaguirre MD - 08/06/2019 10:00 AM CST Images from the original note were not included. [place], [place] [address] Cardiac Electrophysiology Outpatient Progress Note Patient name: Pranay Gonzalez Primary Care Provider: VANIA BROWN MD Chief Complaint: Palpitations History of Present Illness Pranay Gonzalez is a 18-year-old female with a history of obesity, and syncope referred for follow up evaluation of palpitations. She was seen initially in clinic on 08/23/18 and started on Corlanor at her last visit in September. She did not find relief of her symptoms with metoprolol previously. She continued to have intermittent palpitions on the Corlaner so that was discontinued for diltiazem. She states she is doing much better on diltiazem. She is also taking venlafaxine now for anxiety and that has been helpful. She has had only rare light headedness and palpitations since her last visit. She has had no further syncope or presyncopal. 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 Assessment and Plan Mrs. Gonzalez is a 18-year-old female with a history of obesity here today for follow up of palpitations/tachycardia. 1. Inappropriate sinus tachycardia: Prior workup was unrevealing for evidence of structural heart disease, anemia, or metabolic disorders causing her heart rate variations. ECG today is sinus rhythm. -Continue diltiazem -Continue hydration, would continued to watch intake salt given borderline hypertension. - She will follow up in 3-4 months when home from break at school to reevaluate symptoms. 2. History of Syncope: No further episodes. No structural heart disease. Possibly vasovagal in etiology. - If recurrence will consider Tilt or loop recorder placement. 3. Anxiety: Continue venlafaxine. Some of her tachycardia may be anxiety driven so maybe treating this may eventually allow her to come off the diltiazem. Follow up in 3-4 months History Review of Systems Constitutional: Negative. [...] (premenstrual syndrome) ??? Restless legs syndrome (RLS) Past Medical History: Past Medical History: Diagnosis [...] nightly as needed for Sleep. DILTIAZEM CD (CARTIA XT) 180 MG 24 HR CAPSULE Take 1 capsule (180 mg total) by mouth daily. VENLAFAXINE XR 37.5 MG 24 HR CAPSULE Take 1 capsule (37.5 mg total) by mouth daily. Modified Medications No medications on file Discontinued Medications IVABRADINE 7.5 MG TABLET Take 1 tablet (7.5 mg total) by mouth 2 (two) times daily with meals. TRI-SPRINTEC 0.18/0.215/0.25 MG-35 MCG TABLET Take 1 tablet by mouth daily. Physical Exam Filed Vitals: 08/06/19 0942 BP: 128/80 Pulse: 85 SpO2: 99% Weight: 116.1 kg (256 lb) Height: 5' 4 (1.626 m) Physical Exam: In general, Mrs. Gonzalez [...] Labs: Lab Results Component Value Date/Time NA 141 05/24/2019 10:20 AM K 4.5 05/24/2019 10:20 AM CR 0.80 05/24/2019 10:20 AM AST 8 (L) 05/24/2019 10:20 AM ALT 16 05/24/2019 10:20 AM HGB 11.9 (L) 05/24/2019 10:20 AM HCT 39.2 05/24/2019 10:20 AM PLT 365 05/24/2019 10:20 AM WBC 10.3 05/24/2019 10:20 AM TSH 1.870 05/24/2019 10:20 AM Echo: 05/2018: Normal LV size and function EKG: Sinus rhythm 87 bpm MD [facility] Cardiac [facility]rophysiology ; ext. [phone] Pager: [phone] 08/06/2019 10:04 AM ODITY LOAN CLERK documented in this encounter Plan of Treatment Not on file documented as of this encounter Procedures Procedure Name Priority Date/Time Associated Diagnosis Comments ELECTROCARDIOGRAM (NON MIDMARK ACQUIRED) Routine 08/06/2019 9:46 AM COMMODITY LOAN CLERK Inappropriate sinus node tachycardia documented in this encounter Results * ELECTROCARDIOGRAM (08/06/2019 9:46 AM COMMODITY LOAN CLERK) 08/06/2019 9:46 AM COMMODITY LOAN CLERK Narrative [facility] - 08/06/2019 10:33 PM COMMODITY LOAN CLERK ?[facility]? [place] ? Test Date: ?2019-08-06 Pat Name: ? PRANAY GONZALEZ ?Department: ? Room: ? Gender: ? Female ? Coil Placer: ?? rk : ?2000 ? Requested By: BAILEY IZAGUIRRE Order Number: [id number] ?Reading MD: ?? Bailey Jose Guadalupe ? Measurements Intervals ?[place] ? Rate: ? 87 ? P: ?9 PA: ? 141 ?QRS: ?42 QRSD: ? 101 ?T: ?-23 QT: ? 352 ? QTc: ?425 ? Interpretive Statements SINUS RHYTHM NONSPECIFIC T-WAVE ABNORMALITY ODITY LOAN CLERK Procedure Note Bailey Izaguirre MD - 08/06/2019 [facility], O? [facility] Test Date: 2019-08-06 Pat Name: PRANAY GONZALEZ Department: Room: Gender: Female Coil Placer: jesus : 2000 Requested By: BAILEY IZAGUIRRE Order Number: [id number] Reading MD: Bailey Izaguirre Measurements Intervals [place] Rate: 87 P: 9 PA: 141 QRS: 42 QRSD: 101 T: -23 QT: 352 QTc: 425 Interpretive Statements SINUS RHYTHM NONSPECIFIC T-WAVE ABNORMALITY ODITY LOAN CLERK us Bailey Izaguirre MD PROCEDURES-ORDERABLE NO SUDHA RGE Final Result Performing Organization Address City/State/[facility] Co de Phone Number [facility] [address] [place] [address] documented in this encounter Visit Diagnoses Diagnosis Inappropriate sinus node tachycardia (CMS/HCC HHS/HCC)- Primary Other specified cardiac dysrhythmias Vasovagal syncope Syncope and collapse documented in this encounter Additional Health Concerns Assessment Noted Time PHQ-9 Depression Total Score: 9 08/05/20 19 9:19 AM COMMODITY LOAN CLERK documented as of this encounter Care Teams Ornamental Metal Erector Relationship Specialty Start Date End Date Vania Brown MD [address] [facility] [address] [place] [address] PCP - General FAMILY PRACTICE 05/16/18 Bailey [facility] MD [facility] [place], [place] [id number] EP Credit Card Control Clerk CARDIOVASCULAR DISEASE 08/15/18 documented as of this encounter
--- OUTSIDE RECORDS SUMMARY | 2024-08-27 04:46 | XMS_ITS | Encounter Summary ---
Author Organization [facility] Address [address] [place] [address]. [place] [id number] Care Team Providers Care Paraffin Plant Sweater Operator Name Role Phone Albert Ruby MD Primary Care Provider [phone] Reason for Visit * Reason Onset Date Comments Information 05/21/2018 need to verify S SN# and address - possible duplicate acct Encounter Details Date Type Department Care Team (Late st Contact Info) Description 05/21/2018 Telephone [facility] [address] [place] [address] Rimma Ramirez MD Information (need to verify SSN# and address - possible duplicate acct) Social History Tobacco Use Types Packs/Day Years Used Date Smoking Tobacco: Never Smokeless Tobacco: Never Comments Unknown Sex and Gender Information Value Date Recorded Sex Assigned at Not on file Legal Sex Female 4:55 PM CDT Gender Identity Not on file Sexual Orientation Not on file documented as of this encounter Progress Notes * Nicol Kay - 05/21/2018 10:19 AM CDT Made call to patient's cell. No answer. No VM. Need to verify SSN# and address. Possible duplicate acct in [facility] with documented in this encounter Plan of Treatment Not on file documented as of this encounter Visit Diagnoses Not on filedocumented in this encounter Care Teams Paraffin Plant Sweater Operator Relationship Specialty Start Date End Date Albert Ruby MD [address] [address] PCP - General FAMILY PRACTICE 05/16/18 documented as of this encounter
--- OUTSIDE RECORDS SUMMARY | 2024-08-27 04:46 | XMS_ITS | Encounter Summary ---
Author Organization [facility] Address [address] [place] [address]. [place], [place] [address] [place] [address] Care Team Providers Care Back Panel Padder Name Role Phone Albert Ruby MD Primary Care Provider [phone] Reason for Visit * Reason Comments Holter Monitor 48hr Holter Monitor Encounter Details Date Type Department Care Team (Latest Contact Info) Description 06/08/2018 3:30 PM CDT Procedure Only [facility] [address] [place] [address] Holter Monitor (48hr Holter Monitor) Social History Tobacco Use Types Packs/Day Years [...] as of this encounter Progress Notes * Marko Saxena LPN - 06/08/2018 3:05 PM CDT 06-08-18 1500: 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 Holter applied successfully with good computer tracing. Patient was given instructions to continue with normal daily activities. They are not to ride alaVisualnestn mower, use a chain saw or do anything that will cause excessive vibrations. They do need to record any strenuous activity such as walking, exercise or house work. They also should record when they go to sleep. It was advised that patient record when they take cardiac medications. Also patient is to record any chest pain, pressure, shortness of breath, or palpitations. Patient advised not to get device wet, do not use a heating pad or electric blanket while wearing. Patient given instructions to take off device and return it and the diary to the clinic in the bag provided. Patient was advised if symptoms are severe to go to the ER that nobody is watching the tracing and we do not know what it looks like until they bring the device back. Patient voiced understanding and has no questions at this time. Marko Saxena LPN documented in this encounter Plan of Treatment Not on file documented as of this encounter Visit Diagnoses Not on filedocumented in this encounter Care Teams Back Panel Padder Relationship Specialty Start Date End Date Albert Ruby MD [address] [address] PCP - General FAMILY PRACTICE 05/16/18 documented as of this encounter
--- OUTSIDE RECORDS SUMMARY | 2024-08-27 04:46 | XMS_ITS | Encounter Summary ---
Author Organization [facility] Address [address] [place] [address]. [place] [address] [place] [address] Care Team Providers Care Risk And Insurance Manager Name Role Phone Albert Brown MD Primary Care Provider [phone] Tremayne Shi MD Unavailable [phone] Reason for Visit * Reason Onset Date Comments Medication Request 11/04/2019 Encounter Details Date Type Department Care Team (Late st Contact Info) Description 11/04/2019 Telephone [facility] - [place] [address] [place] [address] Albert Brown MD [address] [facility] [address] [place] [address] Medication Request Social History Tobacco Use Types Packs/Day [...] Progress Notes * Linda Ross CMA - 11/05/2019 2:18 PM CSTAddended by: LINDA ROSS on: 11/05/2019 02:18 PM Modules accepted: Orders OFF WORKER * Jaida Bermudez - 11/05/2019 11:31 AM CST Alprazolam medication request should be 0.5 MG dose Citalopram is not needed. Please remove! Refill request Laura neri patient of ALBERT BROWN MD requests a refill of Venlafaxine XR 37.5 MG 24 hr capsule The patient would like this sent to the following pharmacy: [id number] [address] The next office visit: Next visit with ALBERT BROWN in FAMILY PRACTICE is on: No match found The last office visit: Last visit with ALBERT BROWN in FAMILY PRACTICE was on: 08/05/2019 in [facility] [facility] SM OFF WORKER * Elisha Sylvester - 11/04/2019 4:04 PM CST Alprazolam .25 mg 120 quantity 2x daily Citalopram 20mg 60 quantity 1x daily Requesting 2 month supply, as patient is switching insurance. Would like to be sure she has enough during the switch. [facility] documented in this encounter Plan of Treatment Not on file documented as of this encounter Visit Diagnoses Diagnosis Anxiety Anxiety state, unspecified documented in this encounter Additional Health Concerns Assessment Noted Time PHQ-9 Depression Total Score: 9 08/05/20 19 9:19 AM DRAW OFF WORKER documented as of this encounter Care Teams Risk And Insurance Manager Relationship Specialty Start Date End Date Albert Brown MD [facility] [address] [place] [address] PCP - General FAMILY PRACTICE 05/16/18 Tremayne Shi MD [facility] [address] [place] [address] EP Primary Health Care Nurse CARDIOVASCULAR DISEASE 08/15/18 documented as of this encounter
--- OUTSIDE RECORDS SUMMARY | 2024-08-27 04:46 | XMS_ITS | Encounter Summary ---
Author Organization [facility] Address [address] [place] [address]. [place], [place] [id number] [place] [address] Care Team Providers Care Voice Professor Name Role Phone Albert Ruby MD Primary Care Provider [phone] Tremayne Shi MD Unavailable Reason for Visit * Reason Onset Date Comments Concerns 09/05/2018 Encounter Details Date Type Department Care Team (Late st Contact Info) Description 09/05/2018 Telephone [facility] at [address] [address] Karen Pina RN Concerns Social History Tobacco Use Types Packs/Day Years [...] Progress Notes * Karen Pina RN - 09/05/2018 2:58 PM CST I informed the patient to increase her Metoprolol to 50mg daily and keep upcoming appt. The patientverbalized understanding and had no further questions. OPHYSIOLOGICAL TECHNICIAN * Tremayne Shi MD - 09/05/2018 11:44 AM CST I agree with that plan. She will see me in clinic next week in follow up. Thanks. OPHYSIOLOGICAL TECHNICIAN * Karen Pina RN - 09/05/2018 10:52 AM CST I received a voicemail from the patient's mother, Izabela/HALEY, stating that Dr. Shi started a beta willard but the patient is still lightheaded and HR is elevated. Izabela asked what was the nextstep. I returned the phone call and left a voicemail for Izabela to call our office. The office number and my extension were provided. I called the patient and she is currently taking Metoprolol 25mg at night. She was taking the Metoprolol during the day but she was getting dizzy so she tried taking it at night. Her HR has been 120-130s; she does not monitor her BP at home. I informed that patient that she will need to increase her Metoprolol to 50mg daily (as noted in the OV note). I informed the patient that I will notify Dr. Shi. The patient verbalized understanding and had no further questions. Message to Dr. Shi. OPHYSIOLOGICAL TECHNICIAN documented in this encounter Plan of Treatment Not on file documented as of this encounter Visit Diagnoses Not on filedocumented in this encounter Care Teams Voice Professor Relationship Specialty Start Date End Date Albert Ruby MD [address] [place] [address] [address] [place] [address] PCP - General FAMILY PRACTICE 05/16/18 Tremayne Shi [facility] [address] [place] [address] EP Audit Partner CARDIOVASCULAR DISEASE 08/15/18 documented as of this encounter
--- OUTSIDE RECORDS SUMMARY | 2024-08-27 04:46 | XMS_ITS | Encounter Summary ---
Author Organization [facility] Address [address] [place] [address]. [place], [place] [address] [place] [address] Care Team Providers Care R&D Engineer Name Role Phone Albert Brown MD Primary Care Provider [phone] Tremayne Shi MD Unavailable [phone] Reason for Visit * Reason Comments Dizziness 3 wk f/u Tachycardia Encounter Details Date Type Department Care Team (Late st Contact Info) Description 09/13/2018 9:30 AM REGIONAL ACCOUNT DIRECTOR Office Visit [facility] at Psych[facility], [facility] [address] [place] [address] Tremayne Shi MD [facility]. [facility] [address] [place], [place] [id number] Dizziness (3 wk f/u); Tachycardia Social History Tobacco Use Types Packs/Day Years [...] Sign Reading Time Taken Comments Blood Pressure 140/84 09/13/2018 9:17 AM REGIONAL ACCOUNT DIRECTOR Pulse 136 09/13/2018 9:17 AM REGIONAL ACCOUNT DIRECTOR Temperature - - Respiratory Rate - - Oxygen Saturation 98% 09/13/2018 9:17 AM REGIONAL ACCOUNT DIRECTOR Inhaled Oxygen Concentration - - Weight 117.5 kg (259 lb) 09/13/2018 9:17 AM REGIONAL ACCOUNT DIRECTOR Height 162.6 cm (5' 4 ) 09/13/2018 9:17 AM REGIONAL ACCOUNT DIRECTOR Body Mass Index 44.46 09/13/2018 9:17 AM REGIONAL ACCOUNT DIRECTOR documented in this encounter Patient Instructions * Patient Instructions* Shirley Cortes - 09/13/2018 9:30 AM REGIONAL ACCOUNT DIRECTOR Images from the original note were not included. Patient Education Patient Education Tachycardia The Basics Written by the doctors and editors at [facility] What is tachycardia???--?? Tachycardia is the [...] process is complete. This topic retrieved from [employer] on: Jun 22, 2018. Topic 48395 Version 10.0 Release: 26.4.7 - C26.268 ?2018??[employer]. and/or its affiliates.??All rights reserved. figure 1: Person having an ECG This drawing shows a man having an ECG (also called an electrocardiogram or EKG). He has patches, called electrodes, stuck onto his chest, arms, and legs. Wires run from the electrodes to the ECG machine. An ECG measures the electrical activity in the heart. Graphic 73450 Version 2.0 Consumer Information Use and Disclaimer [...] that is right for you.The use of [employer] content is governed by the [employer] Terms of Use. ??2018 [employer]. All rights reserved. Copyright ?2018??[employer]. and/or its affiliates.??All rights reserved. ONAL ACCOUNT DIRECTOR documented in this encounter Progress Notes * Tremayne Shi MD - 09/13/2018 9:30 AM CST Images from the original note were not included. [place], [place] [address] Cardiac Electrophysiology Outpatient Progress Note Patient name: Laura Finley Primary Care Provider: ALBERT BROWN MD Reason for referral: palpitations/syncope Chief Complaint: Palpitations History of Present Illness Laura Finley is a 18-year-old female with a history of obesity, syncope referred for evaluation of palpitations. She was seen by me initially in clinic on 08/23/18. 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 She has had ongoing tachycardia/palpitations and she was started on metoprolol at her last visit to see ifthis would help alleviate her symptoms. Laura reports symptoms of fatigue initially when she started metoprolol, but that resolved. However, she has been more light headed when standing and still with palpitations. She has uptitrated her dose of metoprolol XL to 50 mg daily without change in symp toms and more light headedness. She still has daily symptoms. HR remain up to 140s at times. She reports continued light headedness at times but no syncope since her last visit. HR on arriving to theam room was in the 130s. Assessment and Plan Mrs. Finley is a 18-year-old female with a history of obesity here today for evaluation palpitations/tachycardia. Tachycardia: At this point, it seems her symptoms are most consistent with a diagnosis of Inappropriate sinus tachycardia. Prior workup was unrevealing for evidence of structural heart disease, anemia, or metabolic disorders causing her heart rate variations. Her HR jumps up considerably with minimal exertion. In fact her, heart rate today in clinic on ECG at rest is 136 bpm despite use of metoprolol this morning. ECG is consistent with a sinus tachycardia. She is comfortable at rest, but symptomatic with any activity. Unfortunately, beta blockers were no effective in controlling her symptomsand did make some of her symptoms worse. - At this point will stop metoprolol and start Colanor (ivabradine) 5 mg twice daily. There are some small studies showing successful improvement of quality of life and reduction in heart rate variations with this medication. - Will re-assess symptoms in two months. In interim if needed, we can up titrate dose of to 7.5 mg twice daily if needed. 2. History of Syncope: Prior workup unrevealing. No structural heart disease. Possibly vasovagal inetiology. - If recurrence will consider Tilt or loop recorder placement. Follow up in 2 months History Review of Systems Constitutional: Negative. HENT: Negative. Eyes: Negative. Respiratory: Positive for cough. Cardiovascular: Positive for palpitations. Gastrointestinal: Negative. Genitourinary: [...] Current Medications: Medication List Accurate as of 09/13/18 9:43 AM. If you have any questions, ask your nurse or doctor. CONTINUE taking these medications citalopram 20 MG tablet Commonly known as: CELEXA TAKE 1 TABLET BY MOUTH EVERY DAY medroxyPROGESTERone injection Commonly known as: DEPO-PROVERA metoprolol succinate 25 MG 24 hr tablet Commonly known as: TOPROL-XL omeprazole 40 MG capsule Commonly known as: PRILOSEC Physical Exam Filed Vitals: 09/13/18 0917 BP: 140/84 Pulse: 136 SpO2: 98% Weight: 117.5 kg (259 lb) Height: 5' 4 (1.626 m) Physical [...] LV size and function EKG: Sinus tachycardia, possible inferior infarct Tremayne Shi MD [facility] Cardiac Electrophysiology ; ext. [phone] Pager: [phone] 09/13/2018 9:43 AM ONAL ACCOUNT DIRECTOR documented in this encounter Plan of Treatment Not on file documented as of this encounter Procedures Procedure Name Priority Date/Time Associated Diagnosis Comments ELECTROCARDIOGRAM (NON MIDMA RK ACQUIRED) Routine 09/13/2018 Tachycardia documented in this encounter Results * ELECTROCARDIOGRAM (09/13/2018) Tremayne Shi MD PROCEDURES-ORDERABLE NO SUDHA RGE Final Result documented in this encounter Visit Diagnoses Diagnosis Tachycardia- Primary Tachycardia, unspecified Inappropriate sinus node tachycardia ([facility]) Other specified cardiac dysrhythmias documented in this encounter Care Teams R&D Engineer Relationship Specialty Start Date End Date Albert Brown MD [address] [facility] [address] [place] [address] PCP - General FAMILY PRACTICE 05/16/18 Trem[facility] Shi MD [facility] [address] [place] [address] EP Utility Bill Complaints Investigator CARDIOVASCULAR DISEASE 08/15/18 documented as of this encounter
--- OUTSIDE RECORDS SUMMARY | 2024-08-27 04:46 | XMS_ITS | Encounter Summary ---
Author Organization [facility] Address [address] [place] [address]. [place], [place] [address] [place] [address] Care Team Providers Care Fisher Line Name Role Phone Albert Ruby MD Primary Care Provider [phone] Tremayne Shi MD Unavailable [phone] Reason for Referral * Imaging (Routine) - Closed Specialty Diagnoses / Procedures Referred By Ines borja Referred To Contact RADIOLOGY Diagnoses Gall bladder disease Procedures US ABD LIMITED Albert Ruby MD [address] [facility] [address] [place] [address] Phone: tel:[phone] fax: Referral ID Status Reason Start Date Expiration Date Visits Re quested Visits Authorized [id number] Closed 02/21/2020 03/22/2021 1 1 Reason for Visit * Imaging (Routine) - Closed Specialty Diagnoses / Procedures Referred By Ines borja Referred To Contact RADIOLOGY Diagnoses Gall bladder disease Procedures US ABD LIMITED Albert Ruby MD [address] [facility] [address] [place] [address] Phone: tel: fax: Referral ID Status Reason Start Date Expiration Date Visits Re quested Visits Authorized [id number] Closed 02/21/2020 03/22/2021 1 1 Encounter Details Date Type Department Care Team (Latest Contact Info) Description 02/27/2020 8:19 AM CDT - 02/27/2020 11:59 PM CDT Hospital Encounter [facility] [address] [place] [address] Ablert Ruby MD [address] [place] [address] Discharge Disposition: Home or Self Care (Routine [...] have Coronavirus / COVID-19? No / Unsure 02/27/2020 8:18 AM CDT documented as of this encounter Medications at Time of Discharge ALPRAZolam 0.25 MG tabletIndications :Anxiety Take 1 tablet (0.25 mg total) by mouth nightly as needed for Sleep. 30 tablet 11/05/2019 04/13/2020 HYDROcodone-aceta minophen 5-325 MG tabletIndications :Acute Pain < 7 Day Supply Take 1-2 tablets by mouth every 6 (six) hours as needed for Pain. Indications: Acute Pain < 7 Day Supply 30 tablet 02/21/2020 02/28/2020 venlafaxine XR 37.5 MG 24 hr capsuleIndication s:Anxiety Take 1 capsule (37.5 mg total) by mouth daily. 90 capsule 3 12/03/2019 08/12/2020 documented as of this encounter Plan of Treatment Not on file documented as of this encounter Procedures Procedure Name Priority Date/Time Associated Diagnosis Comments US YASHIRA LIMITED Routine 02/27/2020 9:31 AM CDT Gall bladder disease documented in this encounter Results * US ABD LIMITED (02/27/2020 9:31 AM CDT) Anatomical Region Laterality Modality Abdomen Ultrasound 02/27/2020 10:2 9 AM CDT Impressions 02/27/2020 10:32 AM CDT IMPRESSION: 1. ??FINDINGS SUSPICIOUS FOR MILD HEPATIC STEATOSIS. ??NO FOCAL INTRAHEPATIC LESION. 2. ??NO EVIDENCE OF CHOLELITHIASIS NOR BILIARY DUCT DILATATION. Signed: Vasu Brown MD Interpreted By: Vasu Brown MD, 02/27/2020 10:29 AM Narrative 02/27/2020 10:32 AM CDT PATIENT NAME: DANIEL GONZALEZ EXAM: Ultrasound abdomen limited DATE OF EXAM: 02/27/2020 COMPARISON EXAM: None INDICATION: Right upper quadrant pain for 3 weeks TECHNIQUE: Longitudinal and transverse grayscale images of the right upper quadrant. ??Color and duplex/spectral Doppler. FINDINGS: The liver is normal in size. ??Liver echogenicity is somewhat coarse and increased in a diffuse pattern suspicious for mild hepatic steatosis. ??No focal intrahepatic lesions are demonstrated. ??No biliary duct dilatation. The gallbladder is normally distended. ??No evidence of cholelithiasis or gallbladder wall thickening. ??Images of the right kidney are unremarkable. ??Color Doppler demonstrates normal waveform spontaneous hepatopedal flow in the main portal vein. ??No evidence of ascites. ??Pancreas is secured by bowel gas. Procedure Note Vasu Brown MD - 02/27/2020 PATIENT NAME: DANIEL GONZALEZ EXAM: Ultrasound abdomen limited DATE OF EXAM: 02/27/2020 COMPARISON EXAM: None INDICATION: Right upper quadrant pain for 3 weeks TECHNIQUE: Longitudinal and transverse grayscale images of the right upperquadrant. Color and duplex/spectral Doppler. FINDINGS: The liver is normal in size. Liver echogenicity is somewhatcoarse and increased in a diffuse pattern suspicious for mild hepaticsteatosis. No focal intrahepatic lesions are demonstrated. No biliaryduct dilatation. The gallbladder is normally distended. No evidence of cholelithiasis orgallbladder wall thickening. Images of the right kidney are unremarkable.Color Doppler demonstrates normal waveform spontaneous hepatopedal flowin the main portal vein. No evidence of ascites. Pancreas is secured bybowel gas. IMPRESSION: 1. FINDINGS SUSPICIOUS FOR MILD HEPATIC STEATOSIS. NO FOCAL INTRAHEPATICLESION. 2. NO EVIDENCE OF CHOLELITHIASIS NOR BILIARY DUCT DILATATION. Signed: Vasu Brown MD Interpreted By: Vasu Brown MD, 02/27/2020 10:29 AM Albert Ruby MD ULTRASOUND Final Result documented in this encounter Visit Diagnoses Diagnosis Gall bladder disease Unspecified disorder of gallbladder documented in this encounter Additional Health Concerns Assessment Noted Time PHQ-9 Depression Total Score: 9 08/05/20 19 9:19 AM PACKER DRIED BEEF documented as of this encounter Care Teams Fisher Line Relationship Specialty Start Date End Date Albert Ruby MD [address] [place] [address] [address] [place] [address] PCP - General FAMILY PRACTICE 05/16/18 Tremayne Shi MD [facility]. [address] [place], [place] [address] EP Brazing Machine Setter CARDIOVASCULAR DISEASE 08/15/18 documented as of this encounter
--- OUTSIDE RECORDS SUMMARY | 2024-08-27 04:46 | XMS_ITS | Encounter Summary ---
Author Organization [facility] Address [address] [place] [address]. [place], [place] [id number] [place] [address] Care Team Providers Care Block Operator Name Role Phone Albert Ruby MD Primary Care Provider [phone] Tremayne Shi MD Unavailable [phone] Encounter Details Date Type Department Care Team (Late st Contact Info) Description 06/04/2019 Orders Only [facility] at [facility], [address] [place] [address] Elisha Chavarria LPN Social History Tobacco Use Types Packs/Day Years [...] on filedocumented in this encounter Care Teams Block Operator Relationship Specialty Start Date End Date Albert Ruby MD [address] [facility] [address] [place] [address] PCP - General FAMILY PRACTICE 05/16/18 Tremayne Shi MD [address] [address] EP Tree Trimmer Helper CARDIOVASCULAR DISEASE 08/15/18 documented as of this encounter
--- OUTSIDE RECORDS SUMMARY | 2024-08-27 04:46 | XMS_ITS | Encounter Summary ---
Author Organization [facility] Address [address] [place] [address]. [place] [address] Care Team Providers Care Air Breaker Operator Name Role Phone Unavailable Primary Care Provider Unavailabl e Encounter Details Date Type Department Care Team (Latest Contact Info) Description 01/11/2018 [facility] Social History Tobacco Use Types Packs/Day Years Used Date Smoking Tobacco: Never Assessed Comments Unknown Sex and Gender Information Value Date Recorded Sex Assigned at Not on file Legal Sex Female 4:55 PM CDT Gender Identity Not on file Sexual Orientation Not on file documented as of this encounter Progress Notes * Andreas Oconnor Md, MD - 01/11/2018 9:35 AM CDT History of Present Illness Health Screening Chlamydia Screening Overdue. BMI Screening Current . Latest BMI Date 11/24/17.. Result: 40.1 BMI Follow Up Plan Overdue. Current Tobacco Status: Tobacco Non User, Date Assessed 11/24/17. Depression Screening Overdue. Chronic Conditions Diabetes Not Applicable. Hypertension Not Applicable. Signatures Electronically signed by : Erika Hu MA; Jan 11 2018 9:45AM HEAD OF DESIGN (Author) documented in this encounter Plan of Treatment Not on file documented as of this encounter Visit Diagnoses Not on filedocumented in this encounter
--- OUTSIDE RECORDS SUMMARY | 2024-08-27 04:46 | XMS_ITS | Encounter Summary ---
Author Organization [facility] Address [address] [place] [address]. [place], [place] [address] [place] [address] Care Team Providers Care Principal Technical Writer Name Role Phone Albert Ruby MD Primary Care Provider Reason for Visit * Reason Onset Date Comments Results 06/18/2018 Holter Encounter Details Date Type Department Care Team (Late st Contact Info) Description [facility]18[facility]2018 [facility] [address] [place] [address] Rimma Ramirez MD Results (Holter) Social History Tobacco Use Types Packs/Day Years [...] as of this encounter Progress Notes * Phoebe Hill - 06/18/2018 11:00 AM CDT Pt called back and I gave her message that Geoff had left in chart. She voiced her understanding. * Geoff Gonzalez RN - 06/18/2018 9:49 AM CDT LM for pt to call back regarding holter results Dr. Bah reviewed the holter results and stated that pt had only 1 episode of elevated heart rate over 100 and her avg HR was 89 which is within normal and no medication changes at this time. * Phoebe Hill - 06/18/2018 9:30 AM CDT Pt called to get Holter results. She turned Holter in last Monday - Jun 11. documented in this encounter Plan of Treatment Not on file documented as of this encounter Visit Diagnoses Not on filedocumented in this encounter Care Teams Principal Technical Writer Relationship Specialty Start Date End Date Albert Ruby MD [address] [address] PCP - General FAMILY PRACTICE 05/16/18 documented as of this encounter
--- OUTSIDE RECORDS SUMMARY | 2024-08-27 04:46 | XMS_ITS | Encounter Summary ---
Author Organization [facility] Address [address] [place] [address]. [place], [place] [address] [place] [address] Care Team Providers Care Shredding Specialist Name Role Phone Albert Brown MD Primary Care Provider [phone] Tremayne Shi MD Unavailable [phone] Reason for Visit * Reason Comments Anxiety Citalopram not worki ng Depression Follow Up needs routine labs Encounter Details Date Type Department Care Team (Late st Contact Info) Description 05/24/2019 9:40 AM CDT Office Visit [facility] Family and Sports Medicine - [place] [address] [place] [address] Albert Brown MD [address] [facility] [address] [place] [address] Anxiety (Citalopram not working); Depression; Follow Up (needs routine labs) Social History Tobacco Use Types Packs/Day Years [...] Sign Reading Time Taken Comments Blood Pressure 120/74 05/24/2019 9:52 AM CDT Pulse 94 05/24/2019 9:52 AM CDT Temperature - - Respiratory Rate - - Oxygen Saturation 98% 05/24/2019 9:52 AM CDT Inhaled Oxygen Concentration - - Weight 115.7 kg (255 lb) 05/24/2019 9:52 AM CDT Height 162.6 cm (5' 4 ) 05/24/2019 9:52 AM CDT Body Mass Index 43.77 05/24/2019 9:52 AM CDT documented in this encounter Progress Notes * Amber Jackson CMA - 05/24/2019 9:40 AM CDTAddended by: AMBER JACKSON on: 05/24/2019 01:45 PM Modules accepted: Orders * Albert Brown MD - 05/24/2019 9:40 AM CDT Images from the original note were not included. [facility] Specialty [facility] [place] Chief Complaint:: Anxiety (Citalopram not working); Depression; and Follow Up (needs routine labs) History of Present Illness: Laura Finley is a 18-year-old female who presents for follow up on tachycardia, anxiety and obesity. Patient recently evaluated by cardiology for palpitations and will need electrophysiology mapping. Needs labs first. Weight is stable. Anxiety is uncontrolled. stablished condition, s/sxs are controlled with current treatment. No adverse effects to medication. ROS: ROS Head: denies headaches or tenderness [...] (premenstrual syndrome) ??? Restless legs syndrome (RLS) Medical History: Past Medical History: Diagnosis Date [...] file Gets together: Not on file Attends christian service: Not on file Active member of [...] on file Medications: Current Outpatient Medications: ??? CITALOPRAM 20 MG tablet, TAKE 1 TABLET BY MOUTH EVERY DAY, Disp: 30 tablet, Rfl: 0 ??? ivabradine 7.5 MG tablet, Take 1 tablet (7.5 mg total) by mouth 2 (two) times daily with meals., Disp: 60 tablet, Rfl: 6 ??? norelgestromin-ethinyl estradiol 150-35 MCG/24HR packet, Place 1 patch onto the skin once a week., Disp: 3.08 patch, Rfl: 11 ??? omeprazole 40 MG capsule, Take 40 mg by mouth daily., Disp: , Rfl: Allergies: Allergies Allergen Reactions ??? Apple Nausea and Vomiting ??? Lactase Other (see comment) vomiting--drinds small amounts without problems Vitals: Filed Vitals: 05/24/19 0952 BP: 120/74 Pulse: 94 SpO2: 98% Weight: 115.7 kg (255 lb) Height: 5' 4 (1.626 m) PE: Patient appears comfortable, no acute [...] Lungs are clear to auscultation, no wheeze Abdomen is soft, not tender and not distended, normal bowel sound No lower leg edema and normal pedal pulsations. Diagnoses/Impression: Encounter Diagnose(s) ICD-10-CM ICD-9-CM SNOMED CT(R) 1. Palpitations R00.2 785.1 PALPITATIONS 2. Tachycardia R00.0 785.0 TACHYCARDIA 3. Anxiety F41.9 300.00 ANXIETY 4. Obesity due to excess calories, unspecified classification, unspecified whether serious comorbidity present E66.09 278.00 SIMPLE OBESITY Recommendations and Plan: Plan of care hs been explained and discussed with patient. Patient will call or seek immediate medical attention if more concerns arise or medications side effects develop. Patient understands and agrees with the treatment plan ALBERT BROWN MD 05/24/2019 documented in this encounter Plan of Treatment Not on file documented as of this encounter Procedures Procedure Name Priority Date/Time Associated Diagnosis Comments VENIPUNC ARM DRAW Routine 05/24/2019 1:45 PM CDT Palpitations documented in this encounter Results * THYROXINE, FREE (FT4) (05/24/2019 10:20 AM CDT) FREE T4 1.09 0.76 - 1.46 NG/DL 05/24/2019 9:38 PM CDT [facility] 05/24/2019 10:2 0 AM CDT Albert Brown MD LABORATORY Final Result Performing Organization Address City/[facility]/ZIP Co de Phone Number [facility] [address] [place] [address], [place] [phone] * TSH W/REFLEX (05/24/2019 10:20 AM CDT) Pathologist [facility] TSH 1.870 0.358 - 3.74 uIU/ML 05/24/2019 9:38 PM CDT [facility] Comment: HIGH DOSES OF BIOTIN MAY INTERFERE WITH THIS TEST RESULT. CORRELATION TO CLINICAL HISTORY AND PRESENTATION RECOMMENDED. FREE T4 NOT INDICATED 05/24/2019 10:2 0 AM CDT us Albert Brown MD LABORATORY Final Result Performing Organization Address [facility] Co de Phone Number [facility] [address] [place] [address], [place] [phone] * LIPID PANEL (05/24/2019 10:20 AM CDT) CHOLESTEROL 146 <200 MG/DL 05/24/2019 9:38 PM CDT [facility] TRIGLYCERIDES 83 <150 MG/DL 05/24/2019 9:38 PM CDT [facility] HDL 71 >40.0 MG/DL 05/24/2019 9:38 PM CDT [facility] LDL (CALCULATED) 58 <100 MG/DL 05/24/20 19 9:38 PM CDT [facility] NON HDL CHOLESTEROL 75 <130 MG/DL 05/24 9:38 PM T [facility] CHOL/HDL RATIO 2.1 0.0 - 4.5 05/24/2019 9:38 PM T [facility] VLDL CALCULATION 17 5 - 55 MG/DL 05/24/2019 9:38 PM [facility] LIPID INTERPRETATION 05/24/2019 9:38 PM T [facility] Comment: [facility] REPORT RECOMMENDATIONS: ?ADULT ?CHILD ??LOW RISK: [...] ?>=130 05/24/2019 10:2 0 AM CDT Albert Brown MD LABORATORY Final Result Performing Organization Address [facility] Co de Phone Number [facility] [address] [place] [address], * HEMOGLOBIN, GLYCOSYLATED (05/24/2019 10:20 AM CDT) HGB A1C 5.2 4.2 - 6.3 % 05/24/2019 10:50 PM CDT [facility] Comment: ADA GUIDELINES 2010 5.7 TO 6.4% INCREASED RISK OF DIABETES > OR = 6.5% CONSISTENT WITH DIABETES ESTIMATED AVG GLUCOSE 103 mg/dL 05/24/2019 10:50 PM CDT [facility] 05/24/2019 10:2 0 AM CDT Albert Brown MD LABORATORY Final Result Performing Organization Address [facility] de Phone Number [facility] [address] [place] [address], * (ABNORMAL) CBC W/DIFF AUTOMATED (05/24/2019 10:20 AM CDT) WBC 10.3 4.5 - 13.0 x10'3/uL 05/24/2019 9:22 PM CDT [facility] RBC 4.76 4.20 - 5.40 x10'6/uL 05/24/2019 9:22 PM CDT [facility] HGB 11.9(L) 12.0 - 16.0 G/DL 05/24/2019 9:22 PM CDT [facility] HCT 39.2 38.0 - 48.0 % 05/24/2019 9:22 PM CDT [facility] MCV 82.4 81.0 - 99.0 FL 05/24/2019 9:22 PM CDT [facility] MCH 25.0(L) 27.0 - 31.0 PG 05/24/2019 9:22 PM CDT [facility] MCHC 30.4(L) 32.0 - 36.0 G/DL 05/24/2019 9:22 PM CDT [facility] RDW 15.5(H) 11.5 - 14.5 % 05/24/2019 9:22 PM CDT [facility] PLT 365 130 - 400 x10'3/uL 05/24/2019 9:22 PM CDT [facility] MPV 12.4(H) 9.3 - 12.2 FL 05/24/2019 9:22 PM CDT [facility] DIFFERENTIAL TYPE AUTOMATED DIFFERENTIAL 05/24/2019 9:22 PM CDT [facility] NEUTROPHILS % 59.1 % 05/24/2019 9:22 PM CDT [facility] LYMPHOCYTES % 33.1 % 05/24/2019 9:22 PM CDT [facility] MONOCYTES % 6.0 % 05/24/2019 9:22 PM CDT [facility] EOSINOPHILS 1.4 % 05/24/2019 9:22 PM CDT [facility] BASOPHILS 0.2 % 05/24/2019 9:22 PM CDT [facility] IMMATURE GRANS % 0.2 % 05/24/20 9:22 PM CDT [facility] ABS. NEUTROPHILS TOTAL 6.06 1.80 - 8.00 x10'3/uL 05/24/2019 9:22 PM CDT [facility] ABS. LYMPHOCYTES 3.40 1.20 - 5.20 x10'3/uL 05/24/2019 9:22 PM CDT [facility] ABS. MONOCYTES 0.62 0.24 - 0.86 x10'3/uL 05/24/2019 9:22 PM CDT [facility] ABS. EOSINOPHILS 0.14 0.04 - 0.36 x10'3/uL 05/24/2019 9:22 PM CDT [facility] ABS. BASOPHILS 0.02 0.01 - 0.08 x10'3/uL 05/24/2019 9:22 PM CDT [facility] ABS. IMMATURE GRANULOCYTES 0.02 0.00 - 0.49 x10'3/uL 05/24/2019 9:22 PM CDT [facility] 05/24/2019 10:2 0 AM CDT Albert Brown MD LABORATORY Final Result [facility] [address] [place] [address], [place] [phone] * (ABNORMAL) COMPREHENSIVE METABOLIC PANEL (05/24/2019 10:20 AM CDT) [facility] GLUCOSE 76 70 - 99 MG/DL 05/24/2019 9:38 PM CDT [facility] BUN 12 7 - 18 MG/DL 05/24/2019 9:38 PM CDT [facility] CREATININE S/P/B 0.80 0.55 - 1.02 MG/DL 05/24/2019 9:38 PM CDT [facility] SODIUM S/P/B 141 136 - 145 MMOL/L 05/24/2019 9:38 PM T [facility] POTASSIUM S/P/B 4.5 3.5 - 5.1 MMOL/L 05/24/2019 9:38 PM T [facility] CHLORIDE S/P/B 107 100 - 108 MMOL/L 05/24/2019 9:38 PM T [facility] CO2 25.5 21 - 32 MMOL/L 05/24/2019 9:38 PM T [facility] CALCIUM S/P/B 9.2 8.5 - 10.1 MG/DL 05/24/2019 9:38 PM T [facility] BILIRUBIN TOTAL S/P/B 0.4 0.2 - 1.1 MG/DL 05/24/2019 9:38 PM T [facility] TOTAL PROTEIN S/P/B 7.3 6.4 - 8.2 G/DL 05/24/2019 9:38 PM T [facility] ALBUMIN S/P/B 3.5 3.4 - 5.0 G/DL 05/24/2019 9:38 PM T [facility] AST 8(L) 15 - 37 U/L 05/24/2019 9:38 PM T [facility] ALT 16 14 - 55 U/L 05/24/2019 9:38 PM T [facility] ALKALINE PHOSPHATASE S/P/B 86 50 - 136 U/L 05/24/2019 9:38 PM T [facility] ANION GAP 8.5 5 - 15 MMOL/L 05/24/2019 9:38 PM T [facility] BUN CREATININE RATIO 15.0 6 - 26 05/24/2019 9:38 PM T [facility] A/G RATIO 0.9(L) 1.0 - 2.0 RATIO 05/24/2019 9:38 PM CDT [facility] EGFR NON-AFR. AMER. >90 >90 ML/MIN/1.7 3 M2 05/24/2019 9:38 PM CDT [facility] EGFR AFR. AMER. >90 >90 ML/MIN/1.7 3 M2 05/24/2019 9:38 PM CDT [facility] Comment: NOTE: eGFR is not calculated for patients <18 years of age. This is an estimated GFR (CKD EPI) and should not be used for calculating drug doses. 05/24/2019 10:2 0 AM CDT us Albert Brown MD LABORATORY Final Result [facility] [address] [place] [address], documented in this encounter Visit Diagnoses Diagnosis Palpitations- Primary Tachycardia Tachycardia, unspecified Anxiety Anxiety state, unspecified Obesity due to excess calories, unspecified classification, unspecified whether serious comorbidity present documented in this encounter Care Teams Shredding Specialist Relationship Specialty Start Date End Date Albert Brown MD [address] [place] [address] [address] [place] [address] PCP - General FAMILY PRACTICE 05/16/18 Tremayne Shi MD [facility] [place] [address] EP Software Specialist CARDIOVASCULAR DISEASE 08/15/18 documented as of this encounter
--- OUTSIDE RECORDS SUMMARY | 2024-08-27 04:46 | XMS_ITS | Encounter Summary ---
Author Organization [facility] Address [facility]. [place], [place] [address] [place] [address] Care Team Providers Care Filer Helper Name Role Phone Albert Brown MD Primary Care Provider [phone] Tremayne Shi MD Unavailable [phone] Reason for Referral * Imaging (Routine) - Closed Specialty Diagnoses / Procedures Referred By Ines borja Referred To Contact RADIOLOGY Diagnoses Gall bladder disease Procedures US ABD LIMITED Albert Brown MD [address] [facility] [place] [address] Phone: tel: fax: Referral ID Status Reason Start Date Expiration Date Visits Re quested Visits Authorized [id number] Closed 02/21/2020 03/22/2021 1 1 Reason for Visit * Reason Comments Abdominal Pain RUQ pain and bloatin g Encounter Details Date Type Department Care Team (Late st Contact Info) Description 02/21/2020 10:40 AM CDT Office Visit [facility] Family and Sports Medicine - [place] [address] [place] [address] Albert Brown MD [address] [place] [address] Abdominal Pain (RUQ pain and bloating) Social History Tobacco Use Types Packs/Day Years [...] Sign Reading Time Taken Comments Blood Pressure 120/60 02/21/2020 10:02 AM CDT Pulse 97 02/21/2020 10:02 AM CDT Temperature - - Respiratory Rate - - Oxygen Saturation 98% 02/21/2020 10:02 AM CDT Inhaled Oxygen Concentration - - Weight 117.9 kg (260 lb) 02/21/2020 10:02 AM CDT Height 162.6 cm (5' 4 ) 02/21/2020 10:02 AM CDT Body Mass Index 44.63 02/21/2020 10:02 AM CDT documented in this encounter Progress Notes * Albert Brown MD - 02/21/2020 10:40 AM CDTAddended by: ALBERT BROWN on: 02/21/2020 10:51 AM Modules accepted: Orders * Albert Brown MD - 02/21/2020 10:40 AM CDT Images from the original note were not included. Primary [facility] Specialty Care [place] Chief Complaint:: Abdominal Pain (RUQ pain and bloating) History of Present Illness: Pranay Gonzalez is a 19-year-old female who presents with RUQ pain, aggravated with food and eating, also morbid obesity, affects daily living ROS: ROS Head: denies headaches or tenderness [...] file Gets together: Not on file Attends rastafarian service: Not on file Active member of [...] on file Medications: Current Outpatient Medications: ??? venlafaxine XR 37.5 MG 24 hr capsule, Take 1 capsule (37.5 mg total) by mouth daily., Disp: 90 capsule, Rfl: 3 ??? ALPRAZolam 0.25 MG tablet, Take 1 tablet (0.25 mg total) by mouth nightly as needed for Sleep.,Disp: 30 tablet, Rfl: 0 Allergies: Allergies Allergen Reactions ??? Apple Nausea and Vomiting ??? Lactase Other (see comment) vomiting--drinds small amounts without problems Vitals: Filed Vitals: 02/21/20 1002 BP: 120/60 Pulse: 97 SpO2: 98% Weight: 117.9 kg (260 lb) Height: 5' 4 (1.626 m) PE: [...] are clear to auscultation, no wheeze Abdomen RUQ pain Diagnoses/Impression: Encounter Diagnose(s) ICD-10-CM ICD-9-CM SNOMED CT(R) 1. Gall bladder disease K82.9 575.9 DISORDER OF GALLBLADDER Recommendations and Plan: 1- GB disease: discussed care and plan and US orderd Medications Discontinued During This Encounter Medication Reason ??? ALPRAZolam 0.25 MG tablet ??? ALPRAZolam 0.25 MG tablet ??? TRI-SPRINTEC 0.18/0.215/0.25 MG-35 MCG tablet ??? omeprazole 40 MG capsule ??? norelgestromin-ethinyl estradiol 150-35 MCG/24HR packet ??? dilTIAZem CD (CARTIA XT) 180 MG 24 hr capsule ??? citalopram 20 MG tablet Plan of care hs been explained and discussed with patient. Patient will call or seek immediate medical attention if more concerns arise or medications side effects develop. Patient understands and agrees with the treatment plan ALBERT BROWN MD 02/21/2020 documented in this encounter Plan of Treatment Not on file documented as of this encounter Results * US ABD LIMITED [...] Narrative 02/27/2020 10:32 AM CDT PATIENT NAME: PRANAY GONZALEZ EXAM: Ultrasound abdomen limited DATE OF [...] Vasu Brown MD - 02/27/2020 PATIENT NAME: PRANAY GONZALEZ EXAM: Ultrasound abdomen limited DATE OF [...] Vasu Brown MD, 02/27/2020 10:29 AM Albert Brown MD ULTRASOUND Final Result documented in this encounter Visit Diagnoses Diagnosis Gall bladder disease- Primary Unspecified disorder of gallbladder Gall bladder disease Unspecified disorder of gallbladder documented in this encounter Additional Health Concerns Assessment Noted Time PHQ-9 Depression Total Score: 9 08/05/20 19 9:19 AM CERAMIC RESEARCH ENGINEER documented as of this encounter Care Teams Filer Helper Relationship Specialty Start Date End Date Albert Brown MD [address] [place] [address] [address] [place] [address] PCP - General FAMILY PRACTICE 05/16/18 [facility] [address] [place] [address] EP Wax Engraver CARDIOVASCULAR DISEASE 08/15/18 documented as of this encounter
--- OUTSIDE RECORDS SUMMARY | 2024-08-27 04:46 | XMS_ITS | Encounter Summary ---
Author Organization [facility] Address [address] [place] [address]. [place] [address] [place] [address] Care Team Providers Care Special Procedure Tech Name Role Phone Unavailable Primary Care Provider Unavailabl e Encounter Details Date Type Department Care Team (Late st Contact Info) Description 04/11/2018 Abstract [facility] Family Medicine - [place] [address] [facility], [address] [place] [address] Elisha Mccall APNP [address] [place] [address] Social History Tobacco Use Types Packs/Day Years Used Date Smoking Tobacco: Never Assessed Comments Unknown Sex and Gender Information Value Date Recorded Sex Assigned at Not on file Legal Sex Female 4:55 PM CDT Gender Identity Not on file Sexual Orientation Not on file documented as of this encounter Last Filed Vital Signs Vital Sign Reading Time Taken Comments Blood Pressure 128/84 04/11/2018 11:15 AM CDT Pulse 84 04/11/2018 11:15 AM CDT Temperature - - Respiratory Rate - - Oxygen Saturation - - Inhaled Oxygen Concentration - - Weight 112.7 kg (248 lb 8 oz) 8 11:15 AM CDT Height 165.1 cm (5' 5 ) 04/11/2018 11:1 5 AM CDT Body Mass Index 41.35 04/11/2018 11:15 AM CDT Body Mass Index Percentile 99.26% 04/11 11:15 AM CDT Growth Chart: CDC (Girls, 2- 20 Years) documented in this encounter Progress Notes * Elisha Mccall, MARIA DE JESUS - 04/11/2018 11:40 AM CDT Chief Complaint patient is here for a migraine she's had for 3 days. History of Present Illness HPI Free Text: Here for c/o migraine headache for the past 3 days. Pt has tried taking ibuprofen with little relief. Pt works different shifts and is not getting a lot of sleep lately. Also c/o acid reflux and burping. Pt has had stomach ulcer in the past. Review of Systems Constitutional: feeling poorly and headache. ENT: normal. Cardiovascular: Normal. Respiratory: Normal. Gastrointestinal: heartburn and belching. Neurological: Normal. Psychiatric: Normal. Active Problems 1. Allergic rhinitis (477.9) (J30.9) 2. Anxiety (300.00) (F41.9) 3. control counseling (V25.09) (Z30.09) 4. Insomnia (780.52) (G47.00) 5. Obesity (278.00) (E66.9) 6. PMS (premenstrual syndrome) (625.4) (N94.3) Family History Mother 1. No pertinent family history Family History 2. Family history of cardiac disorder (V17.49) (Z82.49) 3. Family history of diabetes mellitus (V18.0) (Z83.3) 4. Family history of hypertension (V17.49) (Z82.49) Social History ?? Never a smoker Current Meds 1. Amitriptyline HCl - 25 MG Oral Tablet; TAKE 1 TABLET BY MOUTH EVERY NIGHT AT BEDTIME; Therapy: [id number] to (Last Rx:28Feb2018) Requested for: 28Feb2018 Ordered 2. Citalopram Hydrobromide 20 MG Oral Tablet; TAKE 1 TABLET BY MOUTH EVERY DAY; Therapy: [id number] to (Evaluate:26Sep2018) Requested for: 02Mar2018; Last Rx:28Feb2018 Ordered 3. Naproxen 500 MG Oral Tablet; TAKE 1 TABLET EVERY 12 HOURS NEEDED; Therapy: 24Nov2017 to (Evaluate:15Rto9859) Requested for: 24Nov2017; Last Rx:24Nov2017 Ordered 4. ZyrTEC Allergy 10 MG Oral Tablet; TAKE 1 TABLET DAILY DIRECTED; Therapy: 32Vkk4389 to (Evaluate:28Hoy3795) Requested for: 28Feb2018; Last Rx:28Feb2018 Ordered Allergies 1. No Known Drug Allergies Vitals Recorded: 11Apr2018 11:15AM Temperature 98 F Heart Rate 84 Respiration 10 Systolic 128 Diastolic 84 O2 Saturation 99 Height 5 ft 5 in Weight 248 lb 8 oz BMI Calculated 41.35 BSA Calculated 2.17 BMI Percentile 99 % 2-20 Stature Percentile 61 % 2-20 Weight Percentile 99 % Physical Exam Constitutional - General appearance: No acute distress, well appearing and well nourished.. Head and Face - Palpation of the face and sinuses: Normal, no sinus tenderness.. Ears, Nose, Mouth, and Throat - Otoscopic examination: Tympanic membranes tidwell, translucent with good bony landmarks and light reflex. Canals patent without erythema. Oropharynx: Moist mucosa, normaltongue and tonsils without lesions.. Pulmonary - Respiratory effort: Normal respiratory rate and rhythm, no increased work of breathing.Auscultation of lungs: Clear bilaterally.. Cardiovascular - Auscultation of heart: Regular rate and rhythm, normal S1 and S2, no murmur.. Abdomen - Abdomen: Normal bowel sounds, soft, non-tender, no masses.. Musculoskeletal - Gait and station: Normal gait.. Psychiatric - Orientation to person, place, and time: Normal. Mood and affect: Normal.. Assessment 1. Migraine (346.90) (G43.909) 2. GERD (gastroesophageal reflux disease) (530.81) (K21.9) Plan GERD (gastroesophageal reflux disease) 1. Omeprazole 40 MG Oral Capsule Delayed Release; TAKE ONE CAPSULE BY MOUTH DAILY Rx By: Elisha Mccall; Dispense: 30 Days ; #:30 Capsule; Refill: 11; For: GERD (gastroesophageal reflux disease); HORACIO = N; Verified Transmission to [employer] [id number]; Last Updated By: Meghan Stevens; 04/11/2018 11:34:01 AM 2. Avoid alcoholic beverages.; Status:Complete; Done: 12Apr2018 08:06AM Ordered; For:GERD (gastroesophageal reflux disease); Ordered By:Elisha Mccall; 3. Call if: Breathing starts to have a wheeze or whistling sound.; Status:Complete; Done: 80Yhf9872 08:06AM Ordered; For:GERD (gastroesophageal reflux disease); Ordered By:Elisha Mccall; 4. Avoid foods and beverages that contain caffeine.; Status:Complete; Done: 63Yiq1927 08:06AM Ordered; For:GERD (gastroesophageal reflux disease); Ordered By:Elisha Mccall; 5. Call if: Your voice is becoming hoarse, or scratchy sounding.; Status:Complete; Done: 35Pwu1572 08:06AM Ordered; For:GERD (gastroesophageal reflux disease); Ordered By:Elisha Mccall; 6. Do not eat anything for at least 2 hours before going to bed.; Status:Complete; Done: 35Bgx5966 08:06AM Ordered; For:GERD (gastroesophageal reflux disease); Ordered By:Elisha Mccall; 7. Call 761 if: You experience a new kind of chest pain (angina) or pressure.; Status:Complete; Done: 80Ekt1224 08:06AM Ordered; For:GERD (gastroesophageal reflux disease); Ordered By:Elisha Mccall; 8. Do not take aspirin or anti-inflammatory medicines.; Status:Complete; Done: 93Nwz1107 08:06AM Ordered; For:GERD (gastroesophageal reflux disease); Ordered By:Elisha Mccall; 9. Seek Immediate Medical Attention if: You are vomiting any blood or material that looks black, or like coffee grounds.; Status:Complete; Done: 04Feq9593 08:06AM Ordered; For:GERD (gastroesophageal reflux disease); Ordered By:Elisha Mccall; 10. Eat small frequent meals.; Status:Complete; Done: 29Kro1598 08:06AM Ordered; For:GERD (gastroesophageal reflux disease); Ordered By:Elisha Mccall; 11. Seek Immediate Medical Attention if: You see any blood in the stool.; Status:Complete; Done: 09Mos9952 08:06AM Ordered; For:GERD (gastroesophageal reflux disease); Ordered By:Elisha Mccall; 12. Regular aerobic exercise can help reduce stress.; Status:Complete; Done: 34Pdy6329 08:06AM Ordered; For:GERD (gastroesophageal reflux disease); Ordered By:Elisha Mccall; 13. Several things can be done to help treat and prevent your gastric reflux.; Status:Complete; Done: 63Ctp7598 08:06AM Ordered; For:GERD (gastroesophageal reflux disease); Ordered By:Elisha Mccall; 14. We recommend that you bring your body mass index down to 25.; Status:Complete; Done: 37Xgj3573 08:06AM Ordered; For:GERD (gastroesophageal reflux disease); Ordered By:Elisha Mccall; Insomnia 15. Amitriptyline HCl - 50 MG Oral Tablet; TAKE 1 TABLET AT BEDTIME Rx By: Elisha Mccall; Dispense: 90 Days ; #:90 Tablet; Refill: 3; For: Insomnia; HORACIO = N; Verified Transmission to [employer]; Last Updated By: [place]; 04/11/2018 11:29:44 AM Migraine 16. SUMAtriptan Succinate 100 MG Oral Tablet; TAKE 1 TABLET FOR MIGRAINE RELIEF. MAY REPEAT 2 HOURS LATER. MAXIMUM 200MG/DAY Rx By: Elisha Mccall; Dispense: 10 Days ; #:30 Tablet; Refill: 2; For: Migraine; HORACIO = N; Verified Transmission to [employer]; Last Updated By: Greentoe; 04/11/2018 11:29:43 AM 17. Be sure to get at least 8 hours of sleep every night.; Status:Complete; Done: 81Tev3492 08:07AM Ordered; For:Migraine; Ordered By:Elisha Mccall; 18. Changes in your diet may help you prevent migraine headaches.; Status:Complete; Done: 67Leg2189 08:07AM Ordered; For:Migraine; Ordered By:Elisha Mccall; 19. Decreasing the stress in your life may help your condition improve.; Status:Complete; Done: 98Dcf6950 08:07AM Ordered; For:Migraine; Ordered By:Elisha Mccall; 20. Keep a diary of when your symptoms occur.; Status:Complete; Done: 76Fns3751 08:07AM Ordered; For:Migraine; Ordered By:Elisha Mccall; Discussion/Summary Toradol shot given in office. Start Sumatriptan prn. Get plenty of rest, drink plenty of water. Increased Amitriptyline for Headache prevention. Start Omeprazole daily for GERD symptoms, avoid eatingbefore bed, avoid caffeine, citrus, tomato based products and spicy foods. F/U if not improving. Signatures Electronically signed by : Elisha Mccall APN; Apr 12 2018 8:09AM OPERATIONS SUPPORT REPRESENTATIVE (Author) * Generic Conversion MD Zeke - 04/11/2018 11:40 AM CDT Message patient was given a toradol injection today and there was no flashback or adverse reaction while inoffice. ARC/RMA Plan 1. Omeprazole 40 MG Oral Capsule Delayed Release; TAKE ONE CAPSULE BY MOUTH DAILY Rx By: Elisha Mccall; Dispense: 30 Days ; #:30 Capsule; Refill: 11; For: GERD (gastroesophageal reflux disease); HORACIO = N; Verified Transmission to [employer]; Last Updated By: Nouvola; 04/11/2018 11:34:01 AM 2. Amitriptyline HCl - 50 MG Oral Tablet; TAKE 1 TABLET AT BEDTIME Rx By: Elisha Mccall; Dispense: 90 Days ; #:90 Tablet; Refill: 3; For: Insomnia; HORACIO = N; Verified Transmission to [employer]; Last Updated By: Greentoe; 04/11/2018 11:29:44 AM 3. SUMAtriptan Succinate 100 MG Oral Tablet; TAKE 1 TABLET FOR MIGRAINE RELIEF. MAY REPEAT 2 HOURS LATER. MAXIMUM 200MG/DAY Rx By: Elisha Mccall; Dispense: 10 Days ; #:30 Tablet; Refill: 2; For: Migraine; HORACIO = N; Verified Transmission to [employer]; Last Updated By: Greentoe; 04/11/2018 11:29:43 AM 4. Ketorolac Tromethamine 30 MG/ML Injection Solution; INJECT 60 MG Intramuscular Rx By: Elisha Mccall; For: Migraine; HORACIO = N; Request Administration; Last Updated By: Ashley December; 04/11/2018 11:45:46 AM Formulary Override Reason: No Formulary Equivalent Exists 5. Ketorolac Tromethamine 60 MG/2ML Intramuscular Solution Rx By: Elisha Mccall; For: Migraine; Dose of 60 MG; Intramuscular; HORACIO = N; Administered by: Ashley, December: 04/11/2018 11:46:00 AM; Last Updated By: AshleyDecember; 04/11/2018 11:47:12 AM Formulary Override Reason: No Formulary Equivalent Exists Signatures Electronically signed by : December Ashley, ; Apr 11 2018 11:48AM OPERATIONS SUPPORT REPRESENTATIVE (Author) documented in this encounter Plan of Treatment Not on file documented as of this encounter Visit Diagnoses Not on filedocumented in this encounter
--- OUTSIDE RECORDS SUMMARY | 2024-08-27 04:46 | XMS_ITS | Encounter Summary ---
Author Organization [facility] Address [facility] [facility]. [place], [place] [address] [place] [address] Care Team Providers Care Brass Cleaner Name Role Phone Albert Ruby MD Primary Care Provider [phone] Encounter Details Date Type Department Care Team (Late st Contact Info) Description 05/21/2018 Abstract [facility] [address] [place] [address] Rimma Ramirez MD Social History Tobacco Use Types Packs/Day [...] on filedocumented in this encounter Care Teams Brass Cleaner Relationship Specialty Start Date End Date Albert Ruby MD [address] [place] [address] PCP - General FAMILY PRACTICE 05/16/18 documented as of this encounter
--- OUTSIDE RECORDS SUMMARY | 2024-08-27 04:46 | XMS_ITS | Encounter Summary ---
Author Organization [facility] Address [address] [place] [address]. [place], [place] [address] [place] [address] Care Team Providers Care Auto Glass Technician Name Role Phone Albert Ruby MD Primary Care Provider [phone] Tremayne Shi MD Unavailable [phone] Reason for Visit * Reason Onset Date Comments Prior Authorization 09/18/2018 [facility] or Authorization for Corlanor 5mg has been Denied. Encounter Details Date Type Department Care Team (Late st Contact Info) Description 09/18/2018 Telephone [facility] at [facility], [facility] [address] [place] [address] Tremayne Shi MD [facility]. [facility] [address] [place] [address] Prior Authorization ([facility] Prior Authorization for Corlanor 5mg has been Denied.) Social History Tobacco Use Types Packs/Day Years [...] of this encounter Progress Notes * MARGARITA Hutchison - 09/25/2018 9:44 AM CST Appeal faxed to [facility]. LLITE DISH REPAIRER * MARGARITA Hutchison - 09/19/2018 9:48 AM CST It needs to go to [facility] RX Appeals Corridinator Include her name, date of , member number ([id number]). They are going to want to know why you think they should change the decision and medical information to support the request. I will need it printed and signed. Thank you LLITE DISH REPAIRER * Tremayne Shi MD - 09/19/2018 9:03 AM CST Let appeal the denial. I honestly don't think she is going to see benefit from propranolol if metoprolol was not effective. Please let me know who I need to write a letter to. Thanks LLITE DISH REPAIRER * MARGARITA Hutchison - 09/18/2018 4:[address] Shi, Prior Auth for Corlanor 5mg has been DENIED. Denial states: Corlanor 5mg tabler is not a covered benefit on the 2019 [facility] Medicaid Formulary. [facility] will cover Propranolol tablets without prior authorization. Do you want to switch her to something else or do you want to appeal this denial? Please adviseNate LLITE DISH REPAIRER documented in this encounter Plan of Treatment Not on file documented as of this encounter Visit Diagnoses Not on filedocumented in this encounter Care Teams Auto Glass Technician Relationship Specialty Start Date End Date Albert Ruby MD [address] [facility] [address] [place], [place] [id number] PCP - General FAMILY PRACTICE 05/16/18 Tremayne Shi MD [facility]. [facility] [address] [place], [place] [id number] [place] CARDIOVASCULAR DISEASE 08/15/18 documented as of this encounter
--- OUTSIDE RECORDS SUMMARY | 2024-08-27 04:46 | XMS_ITS | Encounter Summary ---
Author Organization [facility] Address [address] [place] [address]. [place], [place] [address] [place] [address] Care Team Providers Care Shake Splitter Name Role Phone Albert Ruby MD Primary Care Provider [phone] Encounter Details Date Type Department Care Team (Latest Contact Info) Description 07/17/2018 Scan [facility] Medical [facility] Andreas Alanis MD Social History Tobacco Use Types Packs/Day [...] on filedocumented in this encounter Care Teams Shake Splitter Relationship Specialty Start Date End Date Albert Ruby MD [address] [place] [address] PCP - General FAMILY PRACTICE 05/16/18 documented as of this encounter
--- OUTSIDE RECORDS SUMMARY | 2024-08-27 04:46 | XMS_ITS | Encounter Summary ---
Author Organization [facility] Address [address] [place] [address]. [place], [place] [address] [place] [address] Care Team Providers Care Stationary Plant Operators Name Role Phone Albert Ruby MD Primary Care Provider [phone] Tremayne Shi MD Unavailable [phone] Reason for Visit * Reason Onset Date Comments Orders 06/04/2019 Corlanor non for mulary per Dr. Shi start Diltiazem XT 180 QD Encounter Details Date Type Department Care Team (Late st Contact Info) Description 06/04/2019 Telephone [facility] at [facility], [facility] [address] [place] [address] [facility]. [facility] [address] [place] [address] Orders (Corlanor non formulary per Dr. Shi start Diltiazem XT 180 QD ) Social History Tobacco Use Types Packs/Day [...] as of this encounter Progress Notes * Elisha Chavarria LPN - 06/04/2019 1:20 PM CDT 06/04/2019 2:03 PM Elisha Chavarria LPN On Brian Wise's argument is that Corlanor was not a continuation. I called Jessica PT only filled the Corlanor one time 10/01/2018. Patient never picked up any additional refills. Insurance also confirms they only paid for it once. I called the patient to verify the information and she states she picked it up in Sep, Oct, and November (Ins and Pharm denies this info). PT states she was not on it at the time of her visit with you. Our options at this point per the i nsurance are to try Amlodipine, Felodipine, Coreg, Metoprolol (already tried and failed) and, Diliazem. PT must try and fail ALL formulary alternatives before they will pay for Corlanor. Please advise. 06/04/2019 2:04 PM Tremayne Shi MD Wait she wasn???t taking it? 06/04/2019 2:04 PM Tremayne Shi MD She told me she was? 06/04/2019 2:06 PM Elisha Chavarria LPN Correct, per the pharmacy and insurance she only filled one time. Per the patient she took through November. 06/04/2019 2:07 PM Tremayne Shi MD Ok let me call her 06/04/2019 2:07 PM Tremayne Shi MD Let???s do diltiazem then 06/04/2019 2:07 PM Elisha Chavarria LPN What dose and instructions? 06/04/2019 2:14 PM Tremayne Shi MD Diltiazem xt 180 mg daily documented in this encounter Plan of Treatment Not on file documented as of this encounter Visit Diagnoses Not on filedocumented in this encounter Care Teams Stationary Plant Operators Relationship Specialty Start Date End Date Albert Ruby MD [address] [place] [address] [place] [address] PCP - General FAMILY PRACTICE 05/16/18 Tremayne Shi MD [facility]. [facility] [address] [place] [address] EP Log [place] CARDIOVASCULAR DISEASE 08/15/18 documented as of this encounter
--- OUTSIDE RECORDS SUMMARY | 2024-08-27 04:46 | XMS_ITS | Encounter Summary ---
Author Organization [facility] Address [address] [place] [address]. [place], [place] [address] [place] [address] Care Team Providers Care Gas Welding Equipment Mechanic Name Role Phone lAbert Ruby MD Primary Care Provider [phone] Encounter Details Date Type Department Care Team (Late st Contact Info) Description 06/08/2018 [facility] [address] [place] [address] Scanned, Documents Social History Tobacco Use Types [...] Procedure Name Priority Date/Time Associated Diagnosis Comments HOLTER MONITOR 48 HR REC Routine 06/08/2018 Syncope, unspecified syncope type Palpitations documented in this encounter Results * Holter Monitor 48 Hr (06/08/2018) Rimma Ramirez MD HOLTER Final Re sult documented in this encounter Visit Diagnoses Diagnosis Syncope, unspecified syncope type Palpitations documented in this encounter Care Teams Gas Welding Equipment Mechanic Relationship Specialty Start Date End Date Albert Ruby MD [address] [address] PCP - General FAMILY PRACTICE 05/16/18 documented as of this encounter
--- OUTSIDE RECORDS SUMMARY | 2024-08-27 04:46 | XMS_ITS | Encounter Summary ---
Author Organization [facility] Address [address] [place] [address]. [place], [place] [address] [place] [address] Care Team Providers Care Pipe Organ Technician Name Role Phone Albert Brown MD Primary Care Provider [phone] Tremayne Shi MD Unavailable [phone] Reason for Visit * Reason Comments Physical wants to be on oral control Encounter Details Date Type Department Care Team (Late st Contact Info) Description 01/30/2019 9:40 AM CDT Office Visit [facility] Group Family and Sports Medicine - [place] [address] [place] [address] Albert Brown MD [address] [facility] [address] [place] [address] Physical (wants to be on oral control) Social History Tobacco Use Types Packs/Day Years [...] Reading Time Taken Comments Blood Pressure 126/80 01/30/2019 9:50 AM CDT Pulse 79 01/30/2019 9:50 AM CDT Temperature - - Respiratory Rate - - Oxygen Saturation 98% 01/30/2019 9:50 AM CDT Inhaled Oxygen Concentration - - Weight 117.9 kg (260 lb) 01/30/2019 9:50 AM CDT Height 162.6 cm (5' 4 ) 01/30/2019 9:50 AM CDT Body Mass Index 44.63 01/30/2019 9:50 AM CDT documented in this encounter Progress Notes * Albert Brown MD - 01/30/2019 9:40 AM CDT Images from the original note were not included. Primary and Specialty Care [place] Chief Complaint:: Physical (wants to be on oral control) History of Present Illness: 18 yo WAF for f/u and med review ROS: Review of Systems Constitutional: Negative. HENT: Negative. Eyes: Negative. Respiratory: Negative. Cardiovascular: Negative. Skin: Negative. Active Problems: Patient Active Problem List Diagnosis ??? Syncope ??? Palpitations ??? Tachycardia Medical History: Past Medical History: Diagnosis Date ??? Anxiety ??? Depression ??? GERD (gastroesophageal reflux disease) ??? Migraine Surgical History: Past Surgical History: Procedure Laterality [...] file Gets together: Not on file Attends voodoo service: Not on file Active member of [...] on file Medications: Current Outpatient Medications: ??? citalopram 20 MG tablet, Take 1 tablet (20 mg total) by mouth daily., Disp: 30 tablet, Rfl: 4 ??? ivabradine (CORLANOR) 5 MG tablet, Take 1 tablet (5 mg total) by mouth 2 (two) times daily withmeals. Prior Auth APPROVED 09-26-18 through 12-25-18., Disp: , Rfl: ??? omeprazole 40 MG capsule, Take 40 mg by mouth daily., Disp: , Rfl: Allergies: No Known Allergies Vitals: Filed Vitals: 01/30/19 0950 BP: 126/80 Pulse: 79 SpO2: 98% Weight: 117.9 kg (260 lb) Height: 5' 4 (1.626 m) PE: Physical Exam Constitutional: She is well-developed, well-nourished, and in no distress. HENT: Head: Normocephalic. Eyes: Pupils are equal, round, and reactive to light. Neck: Normal range of motion. Cardiovascular: Normal rate. Pulmonary/Chest: No respiratory distress. She has no wheezes. She has no rales. She exhibits no tenderness. Procedures: Procedures Diagnoses/Impression: No diagnosis found. Recommendations and Plan: A&P 1- syncope: stable. Continue care 2- palpitations: stable. Continue care 3-tachycardia: stable. Continue care Medications Discontinued During This Encounter Medication Reason ??? medroxyPROGESTERone injection ALBERT BROWN MD 01/30/2019 documented in this encounter Plan of Treatment Not on file documented as of this encounter Visit Diagnoses Diagnosis Tachycardia- Primary Tachycardia, unspecified Palpitations Syncope, unspecified syncope type control Unspecified contraceptive management documented in this encounter Care Teams Pipe Organ Technician Relationship Specialty Start Date End Date Albert Brown MD [address] [place] [address] [address] [facility] [place] [address] PCP - General FAMILY PRACTICE 05/16/18 Tremayne Shi MD [facility]. [place] [address] [place], [place] [id number] EP Human Resources Designate CARDIOVASCULAR DISEASE 08/15/18 documented as of this encounter
--- OUTSIDE RECORDS SUMMARY | 2024-08-27 04:46 | XMS_ITS | Encounter Summary ---
Author Organization [facility] Address [address] [place] [address]. [place] [address] Care Team Providers Care Brush Holder Assembler Name Role Phone Unavailable Primary Care Provider Unavailabl e Encounter Details Date Type Department Care Team (Latest Contact Info) Description 08/11/2017 Abstract [facility] Medical Group Social History Tobacco Use Types [...]
--- OUTSIDE RECORDS SUMMARY | 2024-08-27 04:46 | XMS_ITS | Encounter Summary ---
Author Organization [facility] Address [address] [place] [address]. [place], [place] [address] [place] [address] Care Team Providers Care Java Technical Architect Name Role Phone Albert Ruby MD Primary Care Provider [phone] Tremayne Izaguirre MD Unavailable [phone] Reason for Visit * Reason Onset Date Comments Concerns 04/18/2019 Encounter Details Date Type Department Care Team (Late st Contact Info) Description 04/18/2019 Telephone [facility] at [address] [address] Karen Pina, RN Concerns Social History Tobacco Use Types [...] of this encounter Progress Notes * Tracy Rick Brooks - 05/06/2019 2:53 PM CDT PATIENT CALLED BACK. SHE STATES SHE'S BACK TO SCHOOL NOW AND MADE AN APPT FOR 06/27/19 AT 10:[address] IZAGUIRRE WHEN SHE'S BACK FROM SCHOOL * Tracy Guy - 04/29/2019 5:34 PM CDT LEFT ANOTHER VOICEMAIL FOR PATIENT ASKING HER TO CALL ME BACK TO SCHEDULE AN APPT * Tracy Guy - 04/22/2019 5:01 PM CDT LEFT A VOICEMAIL FOR PATIENT ASKING HER TO CALL ME BACK TO SCHEDULE AN APPT. * Tremayne Izaguirre MD - 04/18/2019 3:25 PM CDT She needs a follow up appointment if she wants to increase her corlanor dose (missed last follow up). We can see her next week. Instruct her to stay hydrated and drink extra fluid today and tomorrow. * Karen Pina RN - 04/18/2019 3:22 PM CDT encourage extra fluid intake for today. She should make an appointment next week if she wants to change her dose of corlanor. She could contact her primary care provider if needed. Above message from Dr. Izaguirre. I informed the patient of the above information. The patient verbalized understanding and had no further questions. Message to the hospital secretary. * Karen Pina RN - 04/18/2019 3:02 PM CDT I received a phone call from the patient stating that her HR has been 130s for the past two hours; current reading on [place] [employer] 126. The patient states that she does feel lightheaded. The patient states that it has been about nine months since her last episode of elevated HR. The patient asked ifshe needed an appt or if she needed to go to the ER. I informed the patient that I will notify Dr. Mary mei. The patient verbalized understanding and had no further questions. Message to Dr. Izaguirre. documented in this encounter Plan of Treatment Not on file documented as of this encounter Visit Diagnoses Not on filedocumented in this encounter Care Teams Java Technical Architect Relationship Specialty Start Date End Date Albert Ruby MD [address] [place] [address] [address] [place] [address] PCP - General FAMILY PRACTICE 05/16/18 Tremayne Izaguirre MD [facility]. [facility] [address] [place], [place] [address] EP Telecommunications Equipment Installer CARDIOVASCULAR DISEASE 08/15/18 documented as of this encounter
--- OUTSIDE RECORDS SUMMARY | 2024-08-27 04:46 | XMS_ITS | Encounter Summary ---
Author Organization [facility] Address [address] [place] [address]. [place] [address] [place] [address] Care Team Providers Care Presser Hand Name Role Phone Unavailable Primary Care Provider Unavailabl e Encounter Details Date Type Department Care Team (Late st Contact Info) Description 02/28/2018 Abstract [facility] Family Medicine - [place] [address] [facility], [address] [place] [address] Tana Dennison NP [address] [place] [address] Social History Tobacco Use Types Packs/Day Years Used Date Smoking Tobacco: Never Assessed Comments Unknown Sex and Gender Information Value Date Recorded Sex Assigned at Not on file Legal Sex Female 4:55 PM CDT Gender Identity Not on file Sexual Orientation Not on file documented as of this encounter Last Filed Vital Signs Vital Sign Reading Time Taken Comments Blood Pressure 120/82 02/28/2018 12:02 PM CDT Pulse 81 02/28/2018 12:02 PM CDT Temperature - - Respiratory Rate - - Oxygen Saturation - - Inhaled Oxygen Concentration - - Weight 114.7 kg (252 lb 12. 8 oz) 02/28/2018 12:02 PM CDT Height 165.1 cm (5' 5 ) 02/28/2018 12:0 2 PM CDT Body Mass Index 42.07 02/28/2018 12:02 PM CDT Body Mass Index Percentile 99.41% 02/28 12:02 PM CDT Growth Chart: CDC (Girls, 2- 20 Years) documented in this encounter Progress Notes * Tana Dennison NP - 02/28/2018 12:00 PM CDT Chief Complaint Pt is here for checkup and discuss meds History of Present Illness HPI Free Text: Here for f/u on depression and anxiety. She is doing well on meds. She is not currently sexually active and has never had sex. However, she would like to start on some form of control. LMP- last week, some cramps, no other issues with her periods. PHQ-9 Depression Questionnaire: Over the past 2 weeks, how often have you been bothered by the following problems? TOTAL SCORE: 5. Review of Systems Constitutional: Normal. Cardiovascular: Normal. Respiratory: Normal. Psychiatric: Normal. Active Problems 1. Allergic rhinitis (477.9) (J30.9) 2. Anxiety (300.00) (F41.9) 3. Insomnia (780.52) (G47.00) 4. PMS (premenstrual syndrome) (625.4) (N94.3) Family History [...] BY MOUTH EVERY NIGHT AT BEDTIME; Therapy: 71Lcm2438 to (Evaluate:16Sep2017) Requested for: 17Sgc2062; Last Rx:[id number] Ordered 2. Citalopram Hydrobromide 20 MG Oral Tablet; TAKE 1 TABLET BY MOUTH EVERY DAY; Therapy: 08Cha2799 to (Evaluate:70Lfp1443) Requested for: 02Oct2017; Last Rx:02Oct2017 Ordered 3. Naproxen 500 MG Oral Tablet; TAKE 1 TABLET EVERY 12 HOURS NEEDED; Therapy: 24Nov2017 to (Evaluate:66Vkx4378) Requested for: 24Nov2017; Last Rx:24Nov2017 Ordered 4. ZyrTEC Allergy 10 MG Oral Tablet; TAKE 1 TABLET DAILY DIRECTED; Therapy: 88Chw2363 to (Evaluate:20Sep2017); Last Rx:[id number] Ordered Allergies 1. No Known Drug Allergies Vitals Recorded: 28Feb2018 12:02PM Heart Rate 81 Respiration 16 Systolic 120 Diastolic 82 O2 Saturation 98 Height 5 ft 5 in Weight 252 lb 12.8 oz BMI Calculated 42.07 BSA Calculated 2.19 BMI Percentile 99 % 2-20 Stature Percentile 61 % 2-20 Weight Percentile 99 % Physical Exam Constitutional - General appearance: No acute distress, well appearing and well nourished.. Pulmonary - Respiratory effort: Normal respiratory rate and rhythm, no increased work of breathing.Auscultation of lungs: Clear bilaterally.. Cardiovascular - Auscultation of heart: Regular rate and rhythm, normal S1 and S2, no murmur. Pedalpulses: Normal, 2+ bilaterally.. Psychiatric - Orientation to person, place, and time: Normal. Mood and affect: Normal.. Assessment 1. Anxiety (300.00) (F41.9) 2. Obesity (278.00) (E66.9) 3. control counseling (V25.09) (Z30.09) 4. Insomnia (780.52) (G47.00) Plan Allergic rhinitis 1. ZyrTEC Allergy 10 MG Oral Tablet; TAKE 1 TABLET DAILY DIRECTED Rx By: Tana Dennison; Dispense: 120 Days ; #:1 X 120 Tablet Package; Refill: 1; For: Allergic rhinitis;HORACIO = N; Verified Transmission to [facility] [address]; Last Updated By: [employer];02/28/2018 12:23:58 PM Anxiety 2. Citalopram Hydrobromide 20 MG Oral Tablet; TAKE 1 TABLET BY MOUTH EVERY DAY Rx By: Tana Dennison; Dispense: 30 Days ; #:30 Tablet; Refill: 6; For: Anxiety; HORACIO = N; Verified Transmission to [facility] 84[address] 3. Avoid alcoholic beverages.; Status:Complete; Done: 02Mar2018 12:17PM Ordered; For:Anxiety; Ordered By:Tana Dennison; 4. Avoid foods and beverages that contain caffeine.; Status:Complete; Done: 02Mar2018 12:17PM Ordered; For:Anxiety; Ordered By:Tana Dennison; 5. Be sure to get at least 8 hours of sleep every night.; Status:Complete; Done: 02Mar2018 12:17PM Ordered; For:Anxiety; Ordered By:Tana Dennison; 6. Decreasing the stress in your life may help your condition improve.; Status:Complete; Done: 02Mar2018 12:17PM Ordered; For:Anxiety; Ordered By:Tana Dennison; 7. We recommend desensitization to help reduce your fears.; Status:Complete; Done: 02Mar2018 12:17PM Ordered; For:Anxiety; Ordered By:Tana Dennison; control counseling 8. MedroxyPROGESTERone Acetate 150 MG/ML Intramuscular Suspension Rx By: Tana Dennison; For: control counseling; Dose of 150 MG; Intramuscular; HORACIO = N; Administered by: Izabela Wray MA: 02/28/2018 2:01:00 PM 9. *Urine Test In Office; Status:Complete; Done: 28Feb2018 12:38PM Performed:In Office; Due:79Ods1952;Ordered; For: control counseling; Ordered By:Tana Dennison; Insomnia 10. Amitriptyline HCl - 25 MG Oral Tablet; TAKE 1 TABLET BY MOUTH EVERY NIGHT AT BEDTIME Rx By: Tana Dennison; Dispense: 0 Days ; #:30 Tablet; Refill: 5; For: Insomnia; HORACIO = N; Verified Transmission to [employer]; Last Updated By: [employer]; 02/28/2018 12:24:00 PM Signatures Electronically signed by : Tana Dennison NP; Mar 02 2018 12:19PM [facility] G[facility] ATTENDANT (Author) * Tana Dennison NP - 02/28/2018 12:00 PM CDT Message Pt was seen today and wanted to start Depo injection. test performed resulted negative. Gave pt 1st Depo injection IM right gluteal area per Tana Dennison. Pt tolerated injection well here in office. Pt will return for next injection May 16- Plan 1. ZyrTEC Allergy 10 MG Oral Tablet; TAKE 1 TABLET DAILY DIRECTED Rx By: Tana Dennison; Dispense: 120 Days ; #:1 X 120 Tablet Package; Refill: 1; For: Allergic rhinitis;HORACIO = N; Verified Transmission to [employer]; Last Updated By: [employer];02/28/2018 12:23:58 PM 2. Citalopram Hydrobromide 20 MG Oral Tablet; TAKE 1 TABLET BY MOUTH EVERY DAY Rx By: Tana Dennison; Dispense: 30 Days ; #:30 Tablet; Refill: 6; For: Health Maintenance; HORACIO = N; Verified Transmission to [facility] [address]30; Last Updated By: [employer]; 02/28/2018 12:23:59 PM 3. *Urine Test In Office; Status:Resulted - Requires Verification; Done: 28Feb2018 12:38PM Performed:In Office; Due:75Gpc4385; Last Updated By:Izabela Wray; 02/28/2018 12:38:33 PM;Ordered; For:Health Maintenance; Ordered By:Tana Dennison; 4. MedroxyPROGESTERone Acetate 150 MG/ML Intramuscular Suspension Rx By: Tana Dennison; For: Health Maintenance; Dose of 150 MG; Intramuscular; HORACIO = N; Administered by:Izabela Wray MA: 02/28/2018 2:01:00 PM; Last Updated By: Izabela Wray; 02/28/2018 2:02:36 PM 5. Amitriptyline HCl - 25 MG Oral Tablet; TAKE 1 TABLET BY MOUTH EVERY NIGHT AT BEDTIME Rx By: Tana Dennison; Dispense: 0 Days ; #:30 Tablet; Refill: 5; For: Insomnia; HORACIO = N; Verified Transmission to [facility] [address]45[address]; Last Updated By: Emily [employer]; 02/28/2018 12:24:00 PM Signatures Electronically signed by : Izabela Wray MA; Feb 28 2018 2:07PM [facility] ATTENDANT (Author) documented in this encounter Plan of Treatment Not on file documented as of this encounter Procedures Procedure Name Priority Date/Time Associated Diagnosis Comments TEST URINE Routine 02/28/2018 12:38 PM CDT documented in this encounter Results * TEST URINE (02/28/2018 12:38 PM CDT) PREG TEST Negative [facility] T O EPIC CONVERSION Internal Control: Yes [facility] TO EPIC CONVERSION 02/28/2018 12:3 8 PM CDT 02/28/2018 12:38 PM CDT Narrative [facility] TO EPIC CONVERSION - 02/28/2018 12:38 PM CDT Result Communication: No patient communication needed at this time us Tana Dennison SHELL MOLD BONDER URINE ORDERABLES Final Result [facility] TO EPIC CONVERSION documented in this encounter Visit Diagnoses Not on filedocumented in this encounter
--- OUTSIDE RECORDS SUMMARY | 2024-08-27 04:46 | XMS_ITS | Encounter Summary ---
Author Organization [facility] Address [address] [place] [address]. [place], [place] [address] [place] [address] Care Team Providers Care Bench Worker Hollow Handle Name Role Phone Albert Ruby MD Primary Care Provider [phone] Tremayne Shi MD Unavailable [phone] Encounter Details Date Type Department Care Team (Late st Contact Info) Description 04/21/2020 SNAPCARDt Message Enc [facility] Medical Group Family and Sports Medicine - [place] [address] [place] [address] Albert Ruby MD [address] [address] RE: Question Social History Tobacco Use Types [...] Total Score: 9 08/05/20 19 9:19 AM MEN'S CUSTOM HAIR PIECE CONSULTANT documented as of this encounter Care Teams Bench Worker Hollow Handle Relationship Specialty Start Date End Date Albert Ruby MD [address] [place] [address] [address] [place], [place] [address] PCP - General FAMILY PRACTICE 05/16/18 Tremayne Shi MD [facility]. [address] [place], [place] [id number] EP Health Promotion Educator CARDIOVASCULAR DISEASE 08/15/18 documented as of this encounter
--- OUTSIDE RECORDS SUMMARY | 2024-08-27 04:46 | XMS_ITS | Encounter Summary ---
Author Organization [facility] Address [address] [place] [address]. [place], [place] [address] [place] [address] Care Team Providers Care Cook Roast Name Role Phone Albert Ruby MD Primary Care Provider [phone] Tremayne Shi MD Unavailable Reason for Visit * Reason Onset Date Comments Medication 06/12/2019 Encounter Details Date Type Department Care Team (Late st Contact Info) Description 06/12/2019 Telephone [email or web address] at [address] [address] Karen Pina, patient support representative Social History Tobacco Use Types Packs/Day Years [...] Progress Notes * Karen Pina RN - 06/12/2019 2:28 PM CDT I received a phone call from the patient stating that she did not receive the Rx from Dr. Shi. I informed the patient that a Rx for Diltiazem 180mg daily was sent to [facility] in [place]. The patient states that she needs the Rx to go to [facility] in [place]. I informed the patient that I will send a new Rx. The patient verbalized understanding and had no further questions. Rx sent to [facility]. documented in this encounter Plan of Treatment Not on file documented as of this encounter Visit Diagnoses Not on filedocumented in this encounter Care Teams Cook Roast Relationship Specialty Start Date End Date Albert Ruby MD [address] [place], [place] [address] [address] [facility] [address] PCP - General FAMILY PRACTICE 05/16/18 [facility] [address] [place] [address] EP Pie Bottomer CARDIOVASCULAR DISEASE 08/15/18 documented as of this encounter
--- OUTSIDE RECORDS SUMMARY | 2024-08-27 04:46 | XMS_ITS | Encounter Summary ---
Author Organization [facility] Address [address] [place] [address]. [place] [address] [place] [address] Care Team Providers Care Guide Dog Trainer Name Role Phone Unavailable Primary Care Provider Unavailabl e Encounter Details Date Type Department Care Team (Late st Contact Info) Description 11/24/2017 Abstract [facility] Medical Group Family Medicine - [place] [address] [facility], [address] [place] [address] Albert Ruby MD [address] [place] [address] [address] [place] [address] Social History Tobacco Use Types Packs/Day Years Used Date Smoking Tobacco: Never Assessed Comments Unknown Sex and Gender Information Value Date Recorded Sex Assigned at Not on file Legal Sex Female 4:55 PM CDT Gender Identity Not on file Sexual Orientation Not on file documented as of this encounter Last Filed Vital Signs Vital Sign Reading Time Taken Comments Blood Pressure 138/90 11/24/2017 10:31 AM CDT Pulse - - Temperature - - Respiratory Rate - - Oxygen Saturation - - Inhaled Oxygen Concentration - - Weight 109.3 kg (241 lb) 11/24/2017 10:31 AM CDT Height 165.1 cm (5' 5 ) 11/24/2017 10:31 AM CDT Body Mass Index 40.1 11/24/2017 10:31 AM CDT Body Mass Index Percentile 99.09% 11/24/2017 10: 31 AM CDT Growth Chart: CDC (Girls, 2- 20 Years) documented in this encounter Progress Notes * Albert Ruby MD - 11/24/2017 10:00 AM CDT Reason For Visit Chronic Recheck Visit History of Present Illness HPI Free Text: 17 yo WAF for f/u and medication review. overall doing well, takes meds regularly, no side effects Review of Systems Constitutional: no fever and no headache. ENT: no earache. Cardiovascular: the heart rate was not slow. Respiratory: no shortness of breath. Gastrointestinal: no abdominal pain and no nausea. Genitourinary: no dysuria. Integumentary: no skin lesions. Musculoskeletal: no arthralgias. Active Problems 1. Allergic rhinitis (477.9) (J30.9) 2. Anxiety (300.00) (F41.9) 3. Insomnia (780.52) (G47.00) Family History Mother 1. No pertinent family history Family History 2. Family history of cardiac disorder (V17.49) (Z82.49) 3. Family history of diabetes mellitus (V18.0) (Z83.3) 4. Family history of hypertension (V17.49) (Z82.49) Social History ?? Never a smoker Current Meds 1. Amitriptyline HCl - 25 MG Oral Tablet; TAKE 1 TABLET BY MOUTH EVERY NIGHT AT BEDTIME; Therapy: 47Pyg4962 to (Evaluate:16Sep2017) Requested for: 17Aug2017; Last Rx:[id number] Ordered 2. ARIPiprazole 2 MG Oral Tablet; TAKE 1 TABLET DAILY DIRECTED; Therapy: 02Aug2017 to (Evaluate:16Sep2018) Requested for: 21Sep2017; Last Rx:21Sep2017 Ordered 3. Citalopram Hydrobromide 20 MG Oral Tablet; TAKE 1 TABLET BY MOUTH EVERY DAY; Therapy: 06Jhy5187 to (Evaluate:51Iar0407) Requested for: 02Oct2017; Last Rx:02Oct2017 Ordered 4. Montelukast Sodium 10 MG Oral Tablet; TAKE 1 TABLET DAILY; Therapy: 32Mir9978 to (Evaluate:22Jul2017); Last Rx:[id number] Ordered 5. ZyrTEC Allergy 10 MG Oral Tablet; TAKE 1 TABLET DAILY DIRECTED; Therapy: 93Fqz7533 to (Evaluate:20Sep2017); Last Rx:[id number] Ordered Allergies 1. No Known Drug Allergies Vitals Recorded: 24Nov2017 10:31AM Systolic 138 Diastolic 90 Height 5 ft 5 in Weight 241 lb BMI Calculated 40.1 BSA Calculated 2.14 BMI Percentile 99 % 2-20 Stature Percentile 61 % 2-20 Weight Percentile 99 % Physical Exam Head and Face - Palpation of the face and sinuses: Normal, no sinus tenderness.. Eyes - Conjunctiva and lids: No injection, edema or discharge.. Ears, Nose, Mouth, and Throat - External inspection of ears and nose: Normal without deformities ordischarge. Oropharynx: Moist mucosa, normal tongue and tonsils without lesions.. Neck - Neck: Supple, symmetric, no masses.. Pulmonary - Respiratory effort: Normal respiratory rate and rhythm, no increased work of breathing.Auscultation of lungs: Clear bilaterally.. Cardiovascular - Pedal pulses: Normal, 2+ bilaterally.. Assessment 1. Encounter for preventive health examination (V70.0) (Z00.00) 2. PMS (premenstrual syndrome) (625.4) (N94.3) Plan PMS (premenstrual syndrome) 1. Naproxen 500 MG Oral Tablet; TAKE 1 TABLET EVERY 12 HOURS NEEDED Rx By: Albert Ruby; Dispense: 50 Days ; #:1 X 100 Tablet Bottle; Refill: 2; For: PMS (premenstrual syndrome); HORACIO = N; Sent To: [facility] [address] Discussion/Summary A&P 1- PMS: Started Naprosyn f/u prn Signatures Electronically signed by : Albert Ruby M.D.; Nov 24 2017 10:48AM CLOTHING DESIGNER (Author) documented in this encounter Plan of Treatment Not on file documented as of this encounter Visit Diagnoses Not on filedocumented in this encounter
--- OUTSIDE RECORDS SUMMARY | 2024-08-27 04:46 | XMS_ITS | Encounter Summary ---
Author Organization [facility] Address [address] [place] [address]. [place], [place] [address] [place] [address] Care Team Providers Care Packing Floor Worker Name Role Phone Albert Ruby MD Primary Care Provider [phone] Tremayne Shi MD Unavailable [phone] Reason for Visit * Reason Onset Date Comments Prior Authorization 09/27/2018 [place] or Auth for Corlanor 5mg has been APPROVED from 09-26-18 through 12-25-18. Encounter Details Date Type Department Care Team (Late st Contact Info) Description 09/27/2018 Telephone [facility] at [facility] [address] [place] [address] Tremayne Shi MD [facility]. [facility] [address] [place] [address] Prior Authorization ([place] Prior Auth for Corlanor 5mg has been APPROVED from 09-26-18 through 12-25-18.) Social History Tobacco Use Types Packs/Day Years [...] encounter Progress Notes * MARGARITA Hutchison - 09/27/2018 8:25 AM CST [place] Prior Auth for Corlanor 5mg has been APPROVED from 09-26-18 through 12-25-18. ELAND MANAGEMENT SPECIALIST documented in this encounter Plan of Treatment Not on file documented as of this encounter Visit Diagnoses Not on filedocumented in this encounter Care Teams Packing Floor Worker Relationship Specialty Start Date End Date Albert Ruby MD [address] [place] [address] [address] [facility] [place] [id number] PCP - General FAMILY PRACTICE 05/16/18 Tremayne Shi MD [facility] [address] [place], [place] [address] EP Parking Meter Collector CARDIOVASCULAR DISEASE 08/15/18 documented as of this encounter
--- OUTSIDE RECORDS SUMMARY | 2024-08-27 04:46 | XMS_ITS | Encounter Summary ---
Author Organization [facility] Address [address] [place] [address]. [place], [place] [address] [place] [address] Care Team Providers Care Fine Arts Packer Name Role Phone Albert Ruby MD Primary Care Provider [phone] Tremayne Shi MD Unavailable [phone] Encounter Details Date Type Department Care Team (Late st Contact Info) Description 12/01/2007 Abstract [facility] Room [address] [place] [address] Ramon Anthony MD [address] [place] [address] Social History Tobacco Use Types Packs/Day Years Used Date Smoking Tobacco: Never Assessed AUDIT-C Answer Date Recorded Frequency of Alcohol [...] on filedocumented in this encounter Care Teams Fine Arts Packer Relationship Specialty Start Date End Date Albert Ruby MD [address] [facility] [address] [place] [address] PCP - General FAMILY PRACTICE 05/16/18 Tremayne Shi MD [facility]. [address] [address] EP Hr Representative CARDIOVASCULAR DISEASE 08/15/18 documented as of this encounter
--- OUTSIDE RECORDS SUMMARY | 2024-08-27 04:46 | XMS_ITS | Encounter Summary ---
Author Organization [facility] Address [address] [place] [address]. [place] [address] Care Team Providers Care Commercial Manager Name Role Phone Unavailable Primary Care Provider Unavailabl e Encounter Details Date Type Department Care Team (Latest Contact Info) Description 03/02/2018 Abstract [facility] Medical Group Social History Tobacco Use [...]
--- OUTSIDE RECORDS SUMMARY | 2024-08-27 04:46 | XMS_ITS | Encounter Summary ---
Author Organization [facility] Address [address] [place] [address]. [place], [place] [address] [place] [address] Care Team Providers Care Cell Geneticist Name Role Phone Albert Ruby MD Primary Care Provider [phone] Encounter Details Date Type Department Care Team (Late st Contact Info) Description 06/08/[address] [facility] [address] [place] [address] Rimma Ramirez MD Social History Tobacco Use [...] as of this encounter Progress Notes * Geoff Gonzalez RN - 06/08/2018 4:28 PM CDT Letter mailed to pt documented in this encounter Plan of Treatment Not on file documented as of this encounter Procedures Procedure Name Priority Date/Time Associated Diagnosis Comments ECHO GENERIC 06/08/2018 2:02 PM CDT documented in this encounter Results * ECHO GENERIC (06/08/2018 2:02 PM CDT) Anatomical Region Laterality Modality Other 06/08/2018 2:02 PM CDT Rimma Ramirez MD [facility] Final Result documented in this encounter Visit Diagnoses Not on filedocumented in this encounter Care Teams Cell Geneticist Relationship Specialty Start Date End Date Albert Ruby MD [address] [address] PCP - General FAMILY PRACTICE 05/16/18 documented as of this encounter
--- OUTSIDE RECORDS SUMMARY | 2024-08-27 04:46 | XMS_ITS | Encounter Summary ---
Author Organization [facility] Address [address] [place] [address]. [place] [address] Care Team Providers Care Health Promotion Educator Name Role Phone Albert Ruby MD Primary Care Provider [phone] Tremayne Shi MD Unavailable [phone] Encounter Details Date Type Department Care Team (Latest Contact Info) Description 02/27/2020 Travel Social History Tobacco Use Types Packs/Day [...] Total Score: 9 08/05/20 19 9:19 AM TEST ENGINEERING MANAGER documented as of this encounter Care Teams Health Promotion Educator Relationship Specialty Start Date End Date Albert Ruby MD [address] [place] [place] [address] PCP - General FAMILY PRACTICE 05/16/18 Tremayne Shi MD [address] [place] [address] EP Relocation Manager CARDIOVASCULAR DISEASE 08/15/18 documented as of this encounter
--- OUTSIDE RECORDS SUMMARY | 2024-08-27 04:46 | XMS_ITS | Encounter Summary ---
Author Organization [facility] Address [facility]. [place], [place] [id number] [place] [id number] Care Team Providers Care Rent Collector Name Role Phone Albert Ruby MD Primary Care Provider [phone] Tremayne Shi MD Unavailable [phone] Reason for Referral * Imaging (Emergency) - Closed Specialty Diagnoses / Procedures Referred By Ines borja Referred To Contact RADIOLOGY Procedures CT ABD+PEL W CON Ebenezer Wright MD [address] [place] [address] Phone: tel: fax: Referral ID Status Reason Start Date Expiration Date Visits Re quested Visits Authorized [id number] Closed 04/10/2020 05/11/2021 1 1 Reason for Visit * Reason Comments Abdominal Pain Vomiting Fever 9 Weeks To 74 Years Encounter Details Date Type Department Care Team (Late st Contact Info) Description 04/10/2020 7:53 PM CDT - 04/11/2020 12:40 AM CDT Emergency [facility] Emergency Room [place], [place] [id number] Ebenezer Wright MD [address] [place], [place] [address] Abdominal Pain; Vomiting; Fever 9 Weeks To 74 Years Discharge Disposition: Home or Self Care (Routine [...] Sign Reading Time Taken Comments Blood Pressure 135/110 04/11/2020 12:39 AM CDT Pulse 102 04/10/2020 10:53 PM CDT Temperature 37.1 ??C (98.7 ??F) 04/10/2020 7:31 PM CD T Respiratory Rate 90 04/11/2020 12:39 AM CDT Oxygen Saturation 99% 04/11/2020 12:39 AM CDT Inhaled Oxygen Concentration - - Weight 119 kg (262 lb 5.6 oz) 04/10/2020 7:31 PM CDT Height 167.6 cm (5' 6 ) 04/10/2020 7:31 PM CDT Body Mass Index 42.34 04/10/2020 7:31 PM CDT documented in this encounter Discharge Instructions * Discharge Instructions* Ebenezer Wright MD - 04/11/2020 12:32 AM CDT Emergency Departments (ED) provide medical screening exams and initial stabilizing treatment of emergency medical conditions. Medicine is an inexact science and many conditions cannot be diagnosed orcompletely treated during a single ED visit. Your treating healthcare provider(s) today feel your condition has been stabilized so further care as an outpatient is reasonable. Emergency care does notsubstitute for complete, ongoing, or follow-up care by your primary care physician or client support consultant. Your medication list was reviewed prior to treatment, and at discharge, by the treating provider for the purpose of this outpatient visit only. Please review this entire medication list with your pharmacist, primary care physician, and specialist(s). It is your responsibility to share any new medication instructions you received this visit with your doctor(s). Although no medicine is without risk, your healthcare provider today feels reasonable decisions were made concerning starting new medications and stopping or changing the dosages of your usual medications until you receive follow-up care. Take medications only as directed. Many medications can cause drowsiness, especially those for pain, anxiety, muscle spasms, nausea, and allergies. DO NOT drive, drink alcohol, operate power machinery, or participate in potentially dangerous activities if taking medicines that make you tired. Chronic pain is best managed by pain specialists or primary care physicians, so narcotic refills are not routinely dispensed in the ED. DO NOT take multiple medications containing acetaminophen (Tylenol), such as many narcotic drug combinations and qihl-mhc-glmqjpa cold medicines. Your feedback is important to us. Please fill out the survey you will get in the mail. We need yourinput to give you the best care possible! With your feedback we??ll know where we need to focus ourefforts to provide very good service to our patients! * Attachments The following attachments cannot be sent through Care Everywhere. * Lymphadenitis Discharge Instructions (Kenyan) * Nausea and Vomiting Discharge Instructions, Adult (Kenyan) * High Blood Pressure Discharge Instructions (Kenyan) * Tachycardia Discharge Instructions (Kenyan) documented in this encounter Medications at Time of Discharge ALPRAZolam 0.25 MG tabletIndications:An xiety Take 1 tablet (0.25 mg total) by mouth nightly as needed for Sleep. 30 tablet 11/05/2019 0 amoxicillin-clavulan ate (AUGMENTIN) 875-125 MG tablet Take 1 tablet (875 mg total) by mouth 2 (two) times daily for 10 days. 20 tablet 04/11/2020 0 famotidine 20 MG tablet Take 1 tablet (20 mg total) by mouth 2 (two) times daily. 60 tablet 04/11/2020 0 ondansetron 4 MG disintegrating tablet Take 1 tablet (4 mg total) by mouth every 4 (four) hours as needed for Nausea. 20 tablet 04/11/2020 0 sucralfate 1 G tablet Take 1 tablet (1 g total) by mouth 4 (four) times daily. 120 tablet 04/11/2020 0 venlafaxine XR 37.5 MG 24 hr capsuleIndications:A nxiety Take 1 capsule (37.5 mg total) by mouth daily. 90 capsule 3 12/03/2019 0 documented as of this encounter ED Notes * Milo Diggs RN - 04/11/2020 12:38 AM CDT Provider discussed today's findings with the patient/family. The patient has been given informationregarding their treatment, follow up and concerning symptoms for which they should seek urgent or emergent attention. I have expressed the the importance of seeking attention should there be any new,or worsening symptoms or persistence of their condition. Patient verbalized understanding of the discharge instructions. * Ebenezer Wright MD - 04/11/2020 12:22 AM CDT Chief Complaint Chief Complaint Patient presents with ??? Abdominal Pain ??? Vomiting ??? Fever 9 Weeks To 74 Years History of Present Illness The patient is a very pleasant 19-year-old female examined emergency department in bed #10. She presents today complaining of abdominal pain, vomiting, and fevers. The patient states that she has hadintermittent abdominal pain over the past 3 months, but is been unable to see her PCP. The patient states her pain worsens after eating. No clear palliative factors identified. Quality is described as a bilateral upper and right lower quadrant abdominal pain. There is no other radiation. Severity is moderate. Time course intermittent since onset. Medical History ALLERGIES: Allergies Allergen Reactions ??? Apple Nausea and Vomiting ??? Lactase Other (see comment) vomiting--drinds small amounts without problems MEDICATIONS: Prior to Admission medications Medication Sig Start Date End Date Taking? Authorizing Provider amoxicillin-clavulanate (AUGMENTIN) 349-125 MG tablet Take 1 tablet (875 mg total) by mouth 2 (two)times daily for 10 days. 04/11/20 04/21/20 Yes Ebenezer Wright MD famotidine 20 MG tablet Take 1 tablet (20 mg total) by mouth 2 (two) times daily. 04/11/20 Yes Missy Wright MD ondansetron 4 MG disintegrating tablet Take 1 tablet (4 mg total) by mouth every 4 (four) hours as needed for Nausea. 04/11/20 Yes Ebenezer Wright MD sucralfate 1 G tablet Take 1 tablet (1 g total) by mouth 4 (four) times daily. 04/11/20 Yes Ebenezer Wright MD ALPRAZolam 0.25 MG tablet Take 1 tablet (0.25 mg total) by mouth nightly as needed for Sleep. 11/05/19 Albert Ruby MD venlafaxine XR 37.5 MG 24 hr capsule Take 1 capsule (37.5 mg total) by mouth daily. 12/03/19 Albert Oden MD PAST MEDICAL HISTORY: Past Medical History: Diagnosis Date ??? Anxiety ??? Depression ??? GERD (gastroesophageal reflux disease) ??? Migraine ??? Palpitations ??? Syncope ??? Tachycardia PAST SURGICAL HISTORY: Past Surgical History: Procedure Laterality Date ??? ANKLE FRACTURE SURGERY FAMILY HISTORY: Family History Problem Relation Name Age of Onset ??? CHF Maternal Grandmother ??? Open Heart Maternal Grandmother ??? CHF Paternal Grandmother SOCIAL HISTORY: Social History Tobacco Use ??? Smoking status: Never Smoker ??? Smokeless tobacco: Never Used Substance Use Topics ??? Alcohol use: No Frequency: Never ??? Drug use: No Review of Systems Review of Systems REVIEW OF SYSTEMS: The patient denies fevers, chills, or sweats. Complains of nausea, denies vomiting, diarrhea, or constipation, complains of abdominal pain. Denies chest pain, shortness of breath, dyspnea on exertion, or palpitations. Denies headache, loss of consciousness, or seizures. Denies dysuria or hematuria. Ten systems reviewed and negative except as described above or in the HPI. Physical Exam Filed Vitals: 04/10/20 1931 04/10/20 2253 04/10/20 2330 BP: (!) 194/124 (!) 161/112 (!) 135/107 Pulse: 126 102 Resp: 16 16 16 Temp: 98.7 ??F (37.1 ??C) TempSrc: Oral SpO2: 97% 99% 98% Weight: 119 kg (262 lb 5.6 oz) Height: 5' 6 (1.676 m) Physical Exam VITALS: Reviewed. Tachycardia noted. Hypertension noted. The patient states these are chronic. Review of the records indicates the same. GENERAL: The patient is a very pleasant 19-year-old examined in the Emergency Department. Patient is in no acute distress at the time of my exam. HEENT: Normocephalic, atraumatic. Pupils are PERRL. Eyes focus and track. Sclerae are nonicteric and not injected. The face is symmetric, round, and fully expressive. Hearing is adequate to conversational voice. Ears are without discharge. Nares are grossly patent, and also without discharge. Mucous membranes are moist. NECK: No JVD, tracheal deviation, or subcutaneous emphysema is noted. CHEST: The thoracic cage is stable to palpation and nontender. LUNGS: Clear to auscultation bilaterally without wheezes, rales or rhonchi. Equal inspiratory and expiratory phases. HEART: Tachycardic rate, regular rhythm. Normal S1 and S2. ABDOMEN: Exam limited by body habitus (the patient's BMI is greater than 42). Within that limitation, the patient's abdomen is soft, and nondistended. She is tender in the bilateral upper quadrants right greater than left. She has some extension of pain into the right lower quadrant, however, she is not tender at that location. No masses, bruits or hepatosplenomegaly are noted. EXTREMITIES: No clubbing, cyanosis, edema, or evidence of trauma is noted. NEURO: No gross focal neuro deficits are appreciated. GCS = 15. No seizure activity is noted in theemergency department. PSYCHIATRIC: The patient's mood, affect and interaction are appropriate to setting. SKIN: Normal color, temperature, and turgor noted throughout. Diagnostic Studies / Procedures ELECTROCARDIOGRAMS: Results for orders placed or performed during the hospital encounter of 04/10/20 ECG [address] 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: dori : 2000 Requested By: EBENEZER WRIGHT Order Number: [id number] Reading MD: Measurements Intervals Staples Rate: 94 P: 6 TX: 120 QRS: 12 QRSD: 98 T: -8 QT: 339 QTc: 426 Interpretive Statements SINUS RHYTHM MODERATE VOLTAGE CRITERIA FOR LVH, CONSIDER NORMAL VARIANT NONSPECIFIC T-WAVE ABNORMALITY Compared to ECG 08/06/2019 09:46:26 No significant changes LABORATORY STUDIES: Results for orders placed or performed during the hospital encounter of 04/10/20 URINALYSIS Result Value Ref Range Specimen Type URINE CLEAN CATCH COLOR (U) LIGHT YELLOW TRANSPARENCY CLEAR Specific [place] (U) 1.025 1.001 - 1.030 U PH 5.5 5.0 - 9.0 LEUKOCYTE ESTERASE 25 (A) NEGATIVE NITRITES NEGATIVE NEGATIVE PROTEIN (U) NEGATIVE <30 MG/DL URINE GLUCOSE NORMAL NORMAL MG/DL U KETONES NEGATIVE NEGATIVE MG/DL UROBILINOGEN NORMAL NORMAL MG/DL BILIRUBIN (U) NEGATIVE NEGATIVE MG/DL BLOOD 3+ (A) NEGATIVE CULTURE & SENSITIVITY INDICATED? SPECIMEN SETUP FOR CULTURE MUCUS FEW /LPF WBC/HPF 4 <6 /HPF RBC/HPF 3 <6 /HPF SQUAMOUS EPITHELIALS FEW /HPF CBC W/DIFF AUTOMATED Result Value Ref Range WBC 13.7 (H) 4.5 - 13.0 x10'3/uL RBC 4.89 4.20 - 5.40 x10'6/uL HGB 11.9 (L) 12.0 - 16.0 G/DL HCT 37.4 (L) 38.0 - 48.0 % MCV 76.5 (L) 81.0 - 99.0 FL MCH 24.3 (L) 27.0 - 31.0 PG MCHC 31.8 (L) 32.0 - 36.0 G/DL RDW 15.5 (H) 11.5 - 14.5 % PLT 373 130 - 400 x10'3/uL MPV 12.6 (H) 9.3 - 12.2 FL DIFFERENTIAL TYPE AUTOMATED DIFFERENTIAL NEUTROPHILS 63.2 % LYMPHOCYTES 29.6 % MONOCYTES 5.7 % EOSINOPHILS 0.9 % BASOPHILS 0.1 % IMMATURE GRANS 0.5 % ABS. NEUTROPHILS TOTAL 8.65 (H) 1.80 - 8.00 x10'3/uL ABS. LYMPHOCYTES 4.05 1.20 - 5.20 x10'3/uL ABS. MONOCYTES 0.78 0.24 - 0.86 x10'3/uL ABS. EOSINOPHILS 0.13 0.04 - 0.36 x10'3/uL ABS. BASOPHILS 0.02 0.01 - 0.08 x10'3/uL ABS. IMMATURE GRANULOCYTES 0.07 0.00 - 0.49 x10'3/uL COMPREHENSIVE METABOLIC PANEL Result Value Ref Range GLUCOSE 102 (H) 70 - 99 MG/DL BUN 10 7 - 18 MG/DL CREATININE S/P/B 0.96 0.55 - 1.02 MG/DL SODIUM 139 136 - 145 MMOL/L POTASSIUM 3.8 3.5 - 5.1 MMOL/L CHLORIDE S/P/B 109 (H) 100 - 108 MMOL/L CO2 22.5 21 - 32 MMOL/L CALCIUM 9.0 8.5 - 10.1 MG/DL BILIRUBIN TOTAL S/P/B 0.2 0.2 - 1.2 MG/DL TOTAL PROTEIN S/P/B 8.1 6.4 - 8.2 G/DL ALBUMIN S/P/B 3.4 3.4 - 5.0 G/DL AST 16 15 - 37 U/L ALT 29 14 - 55 U/L ALKALINE PHOSPHATASE S/P/B 105 50 - 136 U/L ANION GAP 7.5 5 - 15 MMOL/L BUN CREATININE RATIO 10.4 6 - 26 A/G RATIO 0.7 (L) 1.0 - 2.0 RATIO eGFR Non-Afr. Amer. 85 (L) >90 ML/MIN/1.73 M2 eGFR Afr. Amer. >90 >90 ML/MIN/1.73 M2 LIPASE Result Value Ref Range LIPASE 68 (L) 73 - 393 UNITS/L LACTIC ACID Result Value Ref Range LACTIC ACID 0.9 0.4 - 2.0 MMOL/L TROPONIN, QUANT Result Value Ref Range TROPONIN I <0.015 <0.045 ng/mL. POCT urine Result Value Ref Range URINE HCG TEST negative NEGATIVE Internal Control performed as Expected? yes VALID IMAGING STUDIES CT ABD+PEL W CON Final Result by User, [id number] (04/10 2066) EXAMINATION: ABDOMEN PELVIS CT WITH CONTRAST CLINICAL INDICATION: 19-year-old EPIGASTRIC AND RUQ PAIN. SUSPECT BILIARY DX, SUSPECT PANCREATITIS. TECHNIQUE: CT of the abdomen and pelvis was acquired after intravenous administration of 100 cc of Isovue-370 into indwelling intravenous access in the right antecubital fossa without adverse contrast reaction reported. Images acquired from the lung bases to the femoral heads then reconstructed in sagittal and coronal projections. Dose lowering technique was used for this study which may include, but is not limited to, dose reduction techniques, automated exposure control, use of iterative reconstruction and ALARA (As low As Reasonably Achievable)/Image Gently techniques. COMPARISON: No previous. Right upper quadrant ultrasound 02/27/2020 used as reference FINDINGS: Included lung bases: Clear of infiltrate or effusion. ABDOMEN: The pancreas is unremarkable. No surrounding peripancreatic induration or inflammation. No pancreatic ductal dilatation or cystic lesion. Uniform homogeneous enhancement. The liver and spleen and adrenal glands and gallbladder and kidneys are unremarkable. No renal lithiasis or hydronephrosis or ureteric calculi. There is no retroperitoneal lymphadenopathy fluid or hemorrhage. There is innumerable 5 and 6 mm lymph nodes within the jejunal mesentery also along the ileocolic chain which may represent mesenteritis or mesenteric adenitis. Small bowel: Unremarkable. Normal terminal ileum. Normal air-filled appendix. Large bowel: Normal in caliber and position. No bowel obstruction. No free air or free fluid in the abdomen or pelvis. PELVIS: Urinary bladder: Unremarkable. Uterus and ovaries: Unremarkable. No free fluid in the posterior cul-de-sac. Bone window imaging: Degenerative intervertebral disc space narrowing with bridging osteophytosis of the lower thoracic spine. IMPRESSION: 1. No bowel obstruction or appendicitis or acute inflammatory change in the large or small bowel. 2. No CT findings of pancreatitis 3. Numerous 5 and 6 mm mesenteric lymph nodes; mesenteric adenitis or mesenteritis. Interpreted By: Ainsley Gonzalez DO, 04/10/2020 11:38 PM ED Course / Medical Decision Making This patient was evaluated for the symptoms described in the history of present illness. She was evaluated in the context of the global COVID-19 pandemic, which necessitated consideration that the patient might be at risk for infection with the SARS-CoV-2 virus that causes COVID-19. Institutional protocols and algorithms that pertain to the evaluation of patients at risk for COVID-19 are in a state of rapid change based on information released by regulatory bodies including the CDC and federal and state organizations. These policies and algorithms were followed during the patient's care. I estimate there is LOW risk for ACUTE APPENDICITIS, BOWEL OBSTRUCTION, CHOLECYSTITIS, DIVERTICULITIS, INCARCERATED HERNIA, MESENTERIC ISCHEMIA, PANCREATITIS, or PERFORATED BOWEL or ULCER, thus I consider the discharge disposition reasonable. Also, there is no evidence or peritonitis, sepsis, or toxicity. We have discussed the diagnosis and risks, and we agree with discharging home to follow-up with their primary doctor. We also discussed returning to the Emergency Department immediately if newor worsening symptoms occur. We have discussed the symptoms which are most concerning (e.g., bloody stool, fever, changing or worsening pain, vomiting) that necessitate immediate return. Discussed all the pertinent/aquino information above including H&P and testing and my diagnosis/differential with of general surgery who agrees with the assessment and plan and recommendsoral antibiotics and outpatient follow-up with primary care. Clinical Impression Nonspecific mesenteric adenitis (Primary) Abdominal pain Nausea and vomiting Chronic hypertension Chronic tachycardia Disposition: Discharge Ebenezer Wright MD 04/11/20 0032 * Milo Diggs RN - 04/10/2020 11:01 PM CDT Patient transported to CT. * Tushar Mendoza RN - 04/10/2020 7:33 PM CDT Patient ambulatory to ED with c/o abdominal pain, vomiting, and fevers. Patient states onset of abdominal pain started 3 months ago but has not been able to see her PCP . Patient states pain worsens shortly after eating. Patient a/ox4 and in no respiratory distress at this time. documented in this encounter Plan of Treatment Not on file documented as of this encounter Procedures Procedure Name Priority Date/Time Associated Diagnosis Comments CT ABD+PEL W CON STAT 04/10/2020 11:0 4 PM CDT LACTIC ACID TIMED 04/10/2020 10:49 PM CDT CULTURE, BACTERIA, BLOOD STAT 04/10/2020 10:49 PM CDT CULTURE, BACTERIA, BLOOD STAT 04/10/2020 10:49 PM CDT TROPONIN, QUANT STAT 04/10/2020 10:49 PM CDT ECG 12-LEAD STAT 04/10/2020 10:31 PM CDT POCT URINE (BACK OFFICE) STAT 04/10/2020 8:00 PM CDT HC URINALYSIS AUTO W/O MICRO STAT 04/10/2020 7:58 PM CDT URINE BACTERIA CULTURE Routine 0 7:58 PM CDT COMPREHENSIVE METABOLIC PANEL STAT 04/10/2020 7:55 PM CDT CBC W/DIFF AUTOMATED STAT 04/10/2020 7:55 PM CDT LIPASE STAT 04/10/2020 7:55 PM CDT documented in this encounter Results * CT ABD+PEL W CON (04/10/2020 11:04 PM CDT) Anatomical Region Laterality Modality Abdomen Computed Tomogra phy 04/10/2020 11:3 8 PM CDT Impressions 04/10/2020 11:47 PM CDT IMPRESSION: 1. ??No bowel obstruction or appendicitis or acute inflammatory change in the large or small bowel. 2. ??No CT findings of pancreatitis 3. ??Numerous 5 and 6 mm mesenteric lymph nodes; mesenteric adenitis or mesenteritis. Interpreted By: Ainsley Gonzalez DO, 04/10/2020 11:38 PM Narrative 04/10/2020 11:47 PM CDT EXAMINATION: ABDOMEN PELVIS CT WITH CONTRAST CLINICAL INDICATION: 19-year-old EPIGASTRIC AND RUQ PAIN. SUSPECT BILIARY DX, SUSPECT PANCREATITIS. TECHNIQUE: CT of the abdomen and pelvis was acquired after intravenous administration of 100 cc of Isovue-370 into indwelling intravenous access in the right antecubital fossa without adverse contrast reaction reported. Images acquired from the lung bases to the femoral heads then reconstructed in sagittal and coronal projections. Dose lowering technique was used for this study which may include, but is not limited to, dose reduction techniques, automated exposure control, use of iterative ??reconstruction and ALARA (As low As Reasonably Achievable)/Image Gently techniques. COMPARISON: No previous. ??Right upper quadrant ultrasound 02/27/2020 used as reference FINDINGS: Included lung bases: Clear of infiltrate or effusion. ABDOMEN: The pancreas is unremarkable. ??No surrounding peripancreatic induration or inflammation. ??No pancreatic ductal dilatation or cystic lesion. ??Uniform homogeneous enhancement. The liver and spleen and adrenal glands ??and gallbladder and kidneys are unremarkable. ??No renal lithiasis or hydronephrosis or ureteric calculi. ??There is no retroperitoneal lymphadenopathy fluid or hemorrhage. There is innumerable 5 and 6 mm lymph nodes within the jejunal mesentery also along the ileocolic chain which may represent mesenteritis or mesenteric adenitis. Small bowel: Unremarkable. ??Normal terminal ileum. ??Normal air-filled appendix. Large bowel: Normal in caliber and position. ??No bowel obstruction. ??No free air or free fluid in the abdomen or pelvis. PELVIS: Urinary bladder: Unremarkable. Uterus and ovaries: Unremarkable. ??No free fluid in the posterior cul-de-sac. Bone window imaging: Degenerative intervertebral disc space narrowing with bridging osteophytosis of the lower thoracic spine. Procedure Note Ainsley Gonzalez MD - 04/10/2020 EXAMINATION: ABDOMEN PELVIS CT WITH CONTRAST CLINICAL INDICATION: 19-year-old EPIGASTRIC AND RUQ PAIN. SUSPECT BILIARY DX, SUSPECTPANCREATITIS. TECHNIQUE: CT of the abdomen and pelvis was acquired after intravenous administrationof 100 cc of Isovue-370 into indwelling intravenous access in the rightantecubital fossa without adverse contrast reaction reported. Imagesacquired from the lung bases to the femoral heads then reconstructed insagittal and coronal projections. Dose lowering technique was used for this study which may include, but isnot limited to, dose reduction techniques, automated exposure control, useof iterative reconstruction and ALARA (As low As ReasonablyAchievable)/Image Gently techniques. COMPARISON: No previous. Right upper quadrant ultrasound 02/27/2020 used asreference FINDINGS: Included lung bases: Clear of infiltrate or effusion. ABDOMEN: The pancreas is unremarkable. No surrounding peripancreatic induration orinflammation. No pancreatic ductal dilatation or cystic lesion. Uniformhomogeneous enhancement. The liver and spleen and adrenal glands and gallbladder and kidneys areunremarkable. No renal lithiasis or hydronephrosis or ureteric calculi.There is no retroperitoneal lymphadenopathy fluid or hemorrhage. There is innumerable 5 and 6 mm lymph nodes within the jejunal mesenteryalso along the ileocolic chain which may represent mesenteritis ormesenteric adenitis. Small bowel: Unremarkable. Normal terminal ileum. Normal air-filledappendix. Large bowel: Normal in caliber and position. No bowel obstruction. Nofree air or free fluid in the abdomen or pelvis. PELVIS: Urinary bladder: Unremarkable. Uterus and ovaries: Unremarkable. No free fluid in the [id number]. Bone window imaging: Degenerative intervertebral disc space narrowing withbridging osteophytosis of the lower thoracic spine. IMPRESSION: 1. No bowel obstruction or appendicitis or acute inflammatory change inthe large or small bowel. 2. No CT findings of pancreatitis 3. Numerous 5 and 6 mm mesenteric lymph nodes; mesenteric adenitis ormesenteritis. Interpreted By: Ainsley Gonzalez DO, 04/10/2020 11:38 PM Ebenezer Wright MD CT Final Result * CULTURE, BACTERIA, BLOOD (04/10/2020 10:49 PM CDT) SPEC DESCRIPTION BLOOD 04/10/2020 10:24 PM CDT [facility] SPECIAL REQUESTS NO SPECIAL REQUEST 04/10/2020 10:24 PM CDT [facility] CULTURE RESULT NO GROWTH 5 DAYS 04/15/2020 12:02 PM CDT [facility] BLOOD SPECIMEN OBTAINED FOR BLOOD CULTURE / Unknown 04/10/2020 10:49 PM CDT 04/10/2020 10:57 PM CDT us Ebenezer Wright MD MICROBIOLOGY - GENERAL ORDERABL ES Final Result Performing Organization Address [facility] Co de Phone Number [facility] [address] [place] [address], * CULTURE, BACTERIA, BLOOD (04/10/2020 10:49 PM CDT) SPEC DESCRIPTION BLOOD 04/10/2020 10:23 PM CDT [facility] SPECIAL REQUESTS NO SPECIAL REQUEST 04/10/2020 10:23 PM CDT [facility] CULTURE RESULT NO GROWTH 5 DAYS 04/15/2020 12:02 PM CDT [facility] BLOOD SPECIMEN OBTAINED FOR BLOOD CULTURE / Unknown 04/10/2020 10:49 PM CDT 04/10/2020 10:57 PM CDT us Ebenezer Wright MD MICROBIOLOGY - GENERAL ORDERABL ES Final Result Performing Organization Address [facility] de Phone Number [facility] [address] [place] [address], * TROPONIN, QUANT (04/10/2020 10:49 PM CDT) TROPONIN I <0.015 <0.045 ng/mL. 04/10/2020 11:20 PM CDT [facility] Comment: HIGH DOSES OF BIOTIN MAY INTERFERE WITH THIS TEST RESULT. CORRELATION TO CLINICAL HISTORY AND PRESENTATION RECOMMENDED. 04/10/2020 10:4 9 PM CDT us Ebenezer Wright MD LABORATORY Final Result Performing Organization Address City/[facility] Co de Phone Number [facility] [address] [place] [address], * LACTIC ACID (04/10/2020 10:49 PM CDT) LACTIC ACID VENOUS 0.9 0.4 - 2.0 MMOL/L 04/10/2020 11:18 PM CDT [facility] 04/10/2020 10:4 9 PM CDT Ebenezer Wright MD LABORATORY Final Result Performing Organization Address [facility] Co de Phone Number [facility] [address] [place] [address], * ECG 12 lead (04/10/2020 10:31 PM CDT) 04/10/2020 10:3 1 PM CDT Narrative [facility] ([facility] RAD - 04/11/2020 12:12 PM CDT ?[place]`bo [place] ? [address] [facility] [place] ? Test Date: ?2020-04-10 Pat Name: ? PRANAY GONZALEZ ?Department: ? Room: ? [id number] Gender: ? Female ? Mule Rider: ?? kg : ?2000 ? Requested By: EBENEZER WRIGHT Order Number: [id number] ? Reading : ?? Loy Rangel ? Measurements Intervals ?Staples ? Rate: ? 94 ? P: ?6 TX: ? 120 ?QRS: ?12 QRSD: ? 98 ? T: ?-8 QT: ? 339 ? QTc: ?426 ? Interpretive Statements SINUS RHYTHM NONSPECIFIC T-WAVE ABNORMALITY Compared to ECG 08/06/2019 09:46:26 No significant changes Other ischemic changes, not STEMI Ebenezer Wright M.D. CRITICAL ALERT ISSUED ON 04-10-2020 22:34:14 Procedure Note Loy Rangel MD - 04/11/[address] Test Date: 2020-04-10 Pat Name: PRANAY GONZALEZ Department: Room: [id number] Gender: Female Mule Rider: dori : 2000 Requested By: EBENEZER WRIGHT Order Number: [id number] Reading MD: Loy Rangel Measurements Intervals Staples Rate: 94 P: 6 TX: 120 QRS: 12 QRSD: 98 T: -8 QT: 339 QTc: 426 Interpretive Statements SINUS RHYTHM NONSPECIFIC T-WAVE ABNORMALITY Compared to ECG 08/06/2019 09:46:26 No significant changes Other ischemic changes, not STEMI Ebenezer Wright M.D. CRITICAL ALERT ISSUED ON 04-10-2020 22:34:14 Ebenezer Wright MD ECG ORDERABLES Final Result Performing Organization Address City/State/[facility] Co de Phone Number [facility] * POCT urine (04/10/2020 8:00 PM CDT) URINE HCG TEST negative NEGATIVE Internal Control performed as Expected? yes VALID Ebenezer Wright MD POINT OF CARE TEST ORDERABLES F inal Result * CULTURE URINE (04/10/2020 7:58 PM CDT) SPEC DESCRIPTION URINE CLEAN CATCH 04/10/2020 8:20 PM CDT [facility] SPECIAL REQUESTS NO SPECIAL REQUEST 04/10/2020 8:20 PM CDT [facility] CULTURE RESULT POLYMICROBIAL GROWTH CONSISTENT WITH NORMAL GENITAL NOVA. ?? SUSCEPTIBILITIES NOT ROUTINELY PERFORMED. 04/12/2020 9:36 AM CDT [facility] URINE SPECIMEN OBTAINED BY CLEAN CATCH PROCEDURE / Unknown 04/10/2020 7:58 PM CDT 04/10/2020 8:19 PM CDT us Ebenezer Wright MD MICROBIOLOGY - GENERAL ORDERABL ES Final Result [facility] [address] [place] [address], [place] [phone] * (ABNORMAL) URINALYSIS (04/10/2020 7:58 PM CDT) SPECIMEN TYPE URINE CLEAN CATCH 04/10/2020 7:55 PM CDT [facility] COLOR (U) LIGHT YELLOW 04/10/2020 8:18 PM CDT [facility] TRANSPARENCY CLEAR 04/10/2020 8:18 PM CDT [facility] SPECIFIC GRAVITY (U) 1.025 1.001 - 1.030 04/10/2020 8:18 PM CDT [facility] U PH 5.5 5.0 - 9.0 04/10/2020 8:18 PM CDT [facility] LEUKOCYTES (U) 25(A) NEGATIVE 04/10/2020 8:18 PM CDT [facility] NITRITES NEGATIVE NEGATIVE 04/10/2020 8:18 PM CDT [facility] PROTEIN (U) NEGATIVE <30 MG/DL 04/10/2020 8:18 PM CDT [facility] URINE GLUCOSE NORMAL NORMAL MG/DL 04/10/2020 8:18 PM CDT [facility] KETONES MG/DL (U) NEGATIVE NEGATIVE MG/DL 04/10/2020 8:18 PM CDT [facility] UROBILINOGEN NORMAL NORMAL MG/DL 04/10/2020 8:18 PM CDT [facility] BILIRUBIN (U) NEGATIVE NEGATIVE MG/DL 04/10/2020 8:18 PM CDT [facility] BLOOD (U) 3+(A) NEGATIVE 04/10/2020 8:18 PM CDT [facility] CULTURE & SENSITIVITY INDICATED? SPECIMEN SETUP FOR CULTURE 04/10/2020 8:18 PM CDT [facility] MUCUS FEW /LPF 04/10/2020 8:18 PM CDT [facility] WBC/HPF 4 <6 /HPF 04/10/2020 8:18 PM CDT [facility] RBC/HPF 3 <6 /HPF 04/10/2020 8:18 PM CDT [facility] SQUAMOUS EPITHELIALS FEW /HPF 04/10/2020 8:18 PM CDT [facility] URINE SPECIMEN OBTAINED BY CLEAN CATCH PROCEDURE / Unknown 04/10/2020 7:58 PM CDT us Ebenezer Wright MD URINE ORDERABLES Final Result Performing Organization Address City/[facility]/ZIP Co de Phone Number [facility] [address] [place] [address], [place] [phone] * (ABNORMAL) LIPASE (04/10/2020 7:55 PM CDT) LIPASE 68(L) 73 - 393 UNITS/L 04/10/2020 9:01 PM CDT [facility] 04/10/2020 7:55 PM CDT us Ebenezer Wright MD LABORATORY Final Result [facility] [address] [place] [address], [place] [phone] * (ABNORMAL) COMPREHENSIVE METABOLIC PANEL (04/10/2020 7:55 PM CDT) GLUCOSE 102(H) 70 - 99 MG/DL 04/10/2020 9:01 PM CDT [facility] BUN 10 7 - 18 MG/DL 04/10/2020 9:01 PM T [facility] CREATININE S/P/B 0.96 0.55 - 1.02 MG/DL 04/10/2020 9:01 PM T [facility] SODIUM S/P/B 139 136 - 145 MMOL/L 04/10/2020 9:01 PM T [facility] POTASSIUM S/P/B 3.8 3.5 - 5.1 MMOL/L 04/10/2020 9:01 PM T [facility] CHLORIDE S/P/B 109(H) 100 - 108 MMOL/L 04/10/2020 9:01 PM T [facility] CO2 22.5 21 - 32 MMOL/L 04/10/2020 9:01 PM [facility] CALCIUM S/P/B 9.0 8.5 - 10.1 MG/DL 04/10/2020 9:01 PM T [facility] BILIRUBIN TOTAL S/P/B 0.2 0.2 - 1.2 MG/DL 04/10/2020 9:01 PM [facility] Comment: THIS ASSAY IS NOT RECOMMENDED FOR PATIENTS UNDERGOING TREATMENT WITH ELTROMBOPAG DUE TO THE POTENTIAL FOR FALSELY ELEVATED RESULTS. TOTAL PROTEIN S/P/B 8.1 6.4 - 8.2 G/DL 04/10/2020 9:01 PM T [facility] ALBUMIN S/P/B 3.4 3.4 - 5.0 G/DL 04/10/2020 9:01 PM T [facility] AST 16 15 - 37 U/L 04/10/2020 9:01 PM [facility] ALT 29 14 - 55 U/L 04/10/2020 9:01 PM [facility] ALKALINE PHOSPHATASE S/P/B 105 50 - 136 U/L 04/10/2020 9:01 PM CDT [facility] ANION GAP 7.5 5 - 15 MMOL/L 04/10/2020 9:01 PM CDT [facility] BUN CREATININE RATIO 10.4 6 - 26 04/10/2020 9:01 PM CDT [facility] A/G RATIO 0.7(L) 1.0 - 2.0 RATIO 04/10/2020 9:01 PM CDT [facility] EGFR NON-AFR. AMER. 85(L) >90 ML/MIN/1.7 3 M2 04/10/2020 9:01 PM CDT [facility] EGFR AFR. AMER. >90 >90 ML/MIN/1.7 3 M2 04/10/2020 9:01 PM CDT [facility] Comment: NOTE: eGFR is not calculated for patients <18 years of age. This is an estimated GFR (CKD EPI) and should not be used for calculating drug doses. 04/10/2020 7:55 PM CDT Ebenezer Wright MD LABORATORY Final Result [facility] [address] [place] [address], [place] [phone] * (ABNORMAL) CBC W/DIFF AUTOMATED (04/10/2020 7:55 PM CDT) WBC 13.7(H) 4.5 - 13.0 x10'3/uL 04/10/2020 8:38 PM CDT [facility] RBC 4.89 4.20 - 5.40 x10'6/uL 04/10/2020 8:38 PM CDT [facility] HGB 11.9(L) 12.0 - 16.0 G/DL 04/10/2020 8:38 PM CDT [facility] HCT 37.4(L) 38.0 - 48.0 % 04/10/2020 8:38 PM CDT [facility] MCV 76.5(L) 81.0 - 99.0 FL 04/10/2020 8:38 PM CDT [facility] MCH 24.3(L) 27.0 - 31.0 PG 04/10/2020 8:38 PM CDT [facility] MCHC 31.8(L) 32.0 - 36.0 G/DL 04/10/2020 8:38 PM CDT [facility] RDW 15.5(H) 11.5 - 14.5 % 04/10/2020 8:38 PM CDT [facility] PLT 373 130 - 400 x10'3/uL 04/10/2020 8:38 PM CDT [facility] MPV 12.6(H) 9.3 - 12.2 FL 04/10/2020 8:38 PM CDT [facility] DIFFERENTIAL TYPE AUTOMATED DIFFERENTIAL 04/10/2020 8:38 PM CDT [facility] NEUTROPHILS % 63.2 % 04/10/2020 8:38 PM CDT [facility] LYMPHOCYTES % 29.6 % 04/10/2020 8:38 PM CDT [facility] MONOCYTES % 5.7 % 04/10/2020 8:38 PM CDT [facility] EOSINOPHILS 0.9 % 04/10/2020 8:38 PM CDT [facility] BASOPHILS 0.1 % 04/10/2020 8:38 PM CDT [facility] IMMATURE GRANS % 0.5 % 04/10/20 20 8:38 PM CDT [facility] ABS. NEUTROPHILS TOTAL 8.65(H) 1.80 - 8.00 x10'3/uL 04/10/2020 8:38 PM CDT [facility] ABS. LYMPHOCYTES 4.05 1.20 - 5.20 x10'3/uL 04/10/2020 8:38 PM CDT [facility] ABS. MONOCYTES 0.78 0.24 - 0.86 x10'3/uL 04/10/2020 8:38 PM CDT [facility] ABS. EOSINOPHILS 0.13 0.04 - 0.36 x10'3/uL 04/10/2020 8:38 PM CDT [facility] ABS. BASOPHILS 0.02 0.01 - 0.08 x10'3/uL 04/10/2020 8:38 PM CDT [facility] ABS. IMMATURE GRANULOCYTES 0.07 0.00 - 0.49 x10'3/uL 04/10/2020 8:38 PM CDT [facility] 04/10/2020 7:55 PM CDT Ebenezer Wright MD LABORATORY Final Result [facility] [address] [place] [address], [place] [phone] documented in this encounter Visit Diagnoses Diagnosis Nonspecific mesenteric adenitis- Primary Nonspecific mesenteric lymphadenitis Abdominal pain Abdominal pain, unspecified site Nausea and vomiting Nausea with vomiting Chronic hypertension Chronic tachycardia documented in this encounter Administered Medications Inactive Administered Medications - up to 3 most recent administrations Medication Order MAR Action Action Date Dose Rate Site amoxicillin-clavulanate (AUGMENTIN) 875-125 MG tablet 875 mg 875 mg, Oral, Once, 1 dose, On 04/11/20 at 0030 Given 04/11/2020 12:37 AM CDT 875 mg iopamidol (ISOVUE-370) 76 % injection 100 mL 100 mL, Intravenous, IMG once as needed, Contrast, 1 dose, Starting on Mon04/10/20 at 2304, Until Mon04/10/20 at 2305 Given 04/10/2020 11:05 PM CDT 100 mLs Right Arm ketorolac (TORADOL) injection 15 mg 15 mg, Intravenous, Once, 1 dose, On Mon04/10/20 at 2230, Max dose is 15 mg for: patients 65 years or older, renal function less than 30 mL/min, and weight less than 50 kg. Given 04/10/2020 11:01 PM CDT 15 mg morphine injection 4 mg 4 mg, Intravenous, Once, 1 dose, On Mon04/10/20 at 2230 Given 04/10/2020 11:21 PM CDT 4 mg ondansetron (ZOFRAN) injection 4 mg 4 mg, Intravenous, Once, 1 dose, On Mon04/10/20 at 2230, IV push over 2-5 minutes. Given 04/10/2020 11:01 PM CDT 4 mg ondansetron (ZOFRAN-ODT) disintegrating tablet 4 mg 4 mg, Oral, Once, 1 dose, On Mon04/10/20 at 2015 Given 04/10/2020 8:16 PM CDT 4 mg sodium chloride 0.9% infusion at 100 mL/hr, Intravenous, Continuous, Starting on Mon04/10/20 at 2230, Until 04/11/20 at 0247 New Bag 04/10/2020 11:21 PM CDT 100 mL/hr documented in this encounter Active and Recently Administered Medications Times are shown in CDT. Scheduled Medication Order 04/09/2020 04/10/2020 04/11/2020 amoxicillin-clavulanate (AUGMENTIN) 875-125 MG tablet 875 mg (COMPLETED) 875 mg, Oral, Once, 1 dose, On 04/11/20 at 0030 0037 (Given - Provid er: Milo Diggs RN) ketorolac (TORADOL) injection 15 mg (COMPLETED) 15 mg, Intravenous, Once, 1 dose, On Mon04/10/20 at 2230, Max dose is 15 mg for: patients 65 years or older, renal function less than 30 mL/min, and weight less than 50 kg. 2301 (Given - Provider: Milo Diggs RN) morphine injection 4 mg (COMPLETED) 4 mg, Intravenous, Once, 1 dose, On Mon04/10/20 at 2230 2321 (Given - Provider: Milo Diggs RN) ondansetron (ZOFRAN) injection 4 mg (COMPLETED) 4 mg, Intravenous, Once, 1 dose, On Mon04/10/20 at 2230, IV push over 2-5 minutes. 2301 (Given - Provider: Milo Diggs, ANDREI) ondansetron (ZOFRAN-ODT) disintegrating tablet 4 mg (COMPLETED) 4 mg, Oral, Once, 1 dose, On Mon04/10/20 at 2015 2016 (Given - Provider: Sunshine Salgado, ANDREI)2030 (Due) Continuous Medication Order 04/09/2020 04/10/2020 04/11/2020 sodium chloride 0.9% infusion at 100 mL/hr, Intravenous, Continuous, Starting on Mon04/10/20 at 2230, Until 04/11/20 at 0247 2321 (New Bag - Provider: Milo Diggs, ANDREI) 0035 (Infusion Stop Time - Provider: Milo Diggs, ANDREI) PRN Medication Order 04/09/2020 04/10/2020 04/11/2020 iopamidol (ISOVUE-370) 76 % injection 100 mL (COMPLETED) 100 mL, Intravenous, IMG once as needed, Contrast, 1 dose, Starting on Mon04/10/20 at 2304, Until Mon04/10/20 at 2305 2305 (Given - Provider: Haylee Bowles, RTR) documented in this encounter Additional Health Concerns Assessment Noted Time PHQ-9 Depression Total Score: 9 08/05/20 19 9:19 AM MAINSPRING FABRICATION SUPERVISOR documented as of this encounter Care Teams Rent Collector Relationship Specialty Start Date End Date Albert Ruby MD [address] [place] [address] [address] [facility] [address] PCP - General FAMILY PRACTICE 05/16/18 Tremayne Shi MD [facility] [address] [place] [address] EP Radiation Protection Technician CARDIOVASCULAR DISEASE 08/15/18 documented as of this encounter
--- OUTSIDE RECORDS SUMMARY | 2024-08-27 04:46 | XMS_ITS | Encounter Summary ---
Author Organization [facility] Address [address] [place] [address]. [place] [address] Care Team Providers Care Mangle Feeder Name Role Phone Unavailable Primary Care Provider Unavailabl e Encounter Details Date Type Department Care Team (Latest Contact Info) Description 01/30/2017 Abstract [facility] Social History Tobacco Use [...]
--- OUTSIDE RECORDS SUMMARY | 2024-08-27 04:46 | XMS_ITS | Encounter Summary ---
Author Organization [facility] Address [address] [place] [address]. [place] [address] [place] [address] Care Team Providers Care Sales Service Supervisor Name Role Phone Albert Brown MD Primary Care Provider [phone] Tremayne Shi MD Unavailable [phone] Reason for Visit * Reason Comments Anxiety meds working well Encounter Details Date Type Department Care Team (Late st Contact Info) Description 08/05/2019 9:00 AM INTENSIVE CARE SPECIALIST Office Visit [facility] Medical Group Family and Sports Medicine - [place] [address] [place] [address] Albert Brown MD [address] [facility] [address] [place] [address] Anxiety (meds working well) Social History Tobacco Use Types Packs/Day Years [...] Reading Time Taken Comments Blood Pressure 120/60 08/05/2019 9:15 AM INTENSIVE CARE SPECIALIST Pulse 89 08/05/2019 9:15 AM INTENSIVE CARE SPECIALIST Temperature - - Respiratory Rate - - Oxygen Saturation 98% 08/05/2019 9:15 AM INTENSIVE CARE SPECIALIST Inhaled Oxygen Concentration - - Weight 115.2 kg (254 lb) 08/05/2019 9:15 AM INTENSIVE CARE SPECIALIST Height 162.6 cm (5' 4 ) 08/05/2019 9:15 AM INTENSIVE CARE SPECIALIST Body Mass Index 43.6 08/05/2019 9:15 AM INTENSIVE CARE SPECIALIST documented in this encounter Progress Notes * Albert Brown MD - 08/05/2019 9:00 AM CST Images from the original note were not included. Primary and Specialty Care Zina Encounter Date: 08/05/2019 Chief Complaint:: Anxiety (meds working well) History of Present Illness: Laura Finley is a 18-year-old female, who presents for an evaluation of anxiety. Onset approximately 5 weeks ago. Symptoms are triggered by leaving the house.There are no suicidal ideations or plan today. No history concerning for manic symptoms. Will continue pharmacological treatment today. Discussed typical side effects of medication, to include sleep problems, DEL ANGEL, GI symptoms, and black box warning of increase in suicidal ideation. Depression risk factors: negative life event father 6 weeks ago at age 43 . He was hit by a car while [place] ROS: Review of Systems Constitutional: Negative. Eyes: Negative. Respiratory: Negative. Cardiovascular: Negative. Gastrointestinal: Negative. Genitourinary: Negative. Musculoskeletal: Negative. Skin: Negative. Neurological: Negative. Endo/Heme/Allergies: Negative. Psychiatric/Behavioral: The patient is nervous/anxious. Active Problems: Patient Active Problem List Diagnosis [...] file Gets together: Not on file Attends latter-day service: Not on file Active member of [...] on file Medications: Current Outpatient Medications: ??? dilTIAZem CD (CARTIA XT) 180 MG 24 hr capsule, Take 1 capsule (180 mg total) by mouth daily., Disp: 30 capsule, Rfl: 5 ??? ivabradine 7.5 MG tablet, Take 1 tablet (7.5 mg total) by mouth 2 (two) times daily with meals., Disp: 60 tablet, Rfl: 6 ??? TRI-SPRINTEC 0.18/0.215/0.25 MG-35 MCG tablet, Take 1 tablet by mouth daily., Disp: , Rfl: 7 ??? venlafaxine XR 37.5 MG 24 hr capsule, , Disp: , Rfl: 2 Allergies: Allergies Allergen Reactions ??? Apple Nausea and Vomiting ??? Lactase Other (see comment) vomiting--drinds small amounts without problems Vitals: Filed Vitals: 08/05/19 0915 BP: 120/60 Pulse: 89 SpO2: 98% Weight: 115.2 kg (254 lb) Height: 5' 4 (1.626 m) PE: Physical Exam Constitutional: Well-developed, well-nourished, and in no distress. Vital signs are normal. Neck: Normal range of motion. Cardiovascular: Normal rate and regular rhythm. Pulmonary/Chest: Effort normal and breath sounds normal. Musculoskeletal: Normal range of motion. Neurological: Alert and oriented to person, place, and time. Normal motor skills. Skin: Skin is warm, dry and intact. Psychiatric: Memory, affect and judgment normal. Mood appears anxious. Expresses no homicidal and no suicidal ideation. Diagnoses/Impression: Encounter Diagnose(s) ICD-10-CM ICD-9-CM SNOMED CT(R) 1. Anxiety F41.9 300.00 ANXIETY Recommendations and Plan: 1. Encouraged physical activity and exercise at least 4 days per week for at least 30 min 2. Do pleasurable activity (hobby, music, activity) daily for 30 min 3. Spend time with supportive people 4. Practice relaxing 5. Set goals to accomplish Will have frequent check-ups. Effect of medication likely not to be seen for 4-6 weeks. The patientshould also consider counseling to talk through issues -- reviewed resources and given handout of local recommended counselors. Encouraged f/u in clinic in 5 Week(s). Review the rationale for treatment duration of greater than 6 months after symptoms are completely controlled. Counselled that once decision to stop the medication is reached, it will need to be slowly titrated off. Patient understands these risks and wants to continue therapy. Orders Placed This Encounter ??? venlafaxine XR 37.5 MG 24 hr capsule ??? TRI-SPRINTEC 0.18/0.215/0.25 MG-35 MCG tablet Cannot display discharge medications since this is not an admission. Medications Discontinued During This Encounter Medication Reason ??? CITALOPRAM 20 MG tablet ??? omeprazole 40 MG capsule ??? norelgestromin-ethinyl estradiol 150-35 MCG/24HR packet ALBERT BROWN MD 08/05/2019 NSIVE CARE SPECIALIST documented in this encounter Plan of Treatment Not on file documented as of this encounter Visit Diagnoses Diagnosis Anxiety- Primary Anxiety state, unspecified documented in this encounter Additional Health Concerns Assessment Noted Time PHQ-9 Depression Total Score: 9 08/05/20 19 9:19 AM INTENSIVE CARE SPECIALIST documented as of this encounter Care Teams Sales Service Supervisor Relationship Specialty Start Date End Date Albert Brown MD [address] [place] [address] [place] [address] [place] [address] PCP - General FAMILY PRACTICE 05/16/18 Tremayne Shi MD [facility]. [place] [address] [place] [address] EP Water Ski Assembler CARDIOVASCULAR DISEASE 08/15/18 documented as of this encounter
--- OUTSIDE RECORDS SUMMARY | 2024-08-27 04:51 | XMS_ITS | Encounter Summary ---
Author Organization [facility] Address [address] [place] [address] Care Team Providers Care Court Recording Monitor Name Role Phone Unavailable Primary Care Provider Unavailabl e Encounter Details Date Type Department Care Team (Latest Contact Info) Description 12/30/2013 10:00 AM CDT Hospital Encounter [facility] OP Joseph Slade MD [address] [place] [address] Body mass index, pediatric, greater than or equal to 95th percentile for age Social History Tobacco Use Types Packs/Day Years Used Date Smoking Tobacco: Never Assessed Comments Unknown Sex and Gender Information Value Date Recorded Sex Assigned at Not on file Legal Sex Female 5:31 AM DESIGN DRAFTER Gender Identity Not on file Sexual Orientation Not on file documented as of this encounter Plan of Treatment Not on file documented as of this encounter Procedures Procedure Name Priority Date/Time Associated Diagnosis Comments VITAMIN D 25 HYDROXY Routine 12/30/2013 10:20 AM CDT ALT Routine 12/30/2013 10:20 AM CDT AST Routine 12/30/2013 10:20 AM CDT HEMOGLOBIN A1C Routine 12/30/2013 10:20 AM CDT LIPID PANEL Routine 12/30/2013 10:20 AM CDT documented in this encounter Results * (ABNORMAL) Vitamin D 25 hydroxy (12/30/2013 10:20 AM CDT) 25-OH Vitamin D Total 13(L) 30 - 100 ng/mL Comment: ?NEW METHOD IN USE 05/20/13 ? Use caution when comparing results from different methodologies and/or manufacturers. METHOD: ParaShoot Chemiluminescent technology TEST INFORMATION: Vitamin D, 25 Hydroxy This assay accurately quantifies the sum of vitamin D3, 25-hydroxy and vitamin D2, 25-hydroxy. REFERENCE RANGES: ?Deficiency: ? < 20 ng/mL ?Insufficiency: ? 20-29 ng/mL ?Optimum level: ?30-100 ng/mL ?Possible toxicity: ?>100 ng/mL No pediatric reference range established. 12/30/2013 10:2 0 AM CDT 12/30/2013 10:27 AM CDT Narrative [facility] HISTORICAL RESULTS - 12/30/2013 11:04 AM CDT FASTING 12HRS us Joseph Slade MD LAB BLOOD ORDERABLES Final Re sult [facility] HISTORICAL RESULTS * Hemoglobin A1c (12/30/2013 10:20 AM CDT) Pathologist [facility] [place] Hemoglobin A1c % 5.8 4.8 - 5.9 % Comment: As of 2010 Method: ??ESTER Sondra 6000 using turbidometric inhibition immunoassay procedure. Results obtained are comparable to results obtained using previous methodology (HPLC). [place] [employer] recommends that the goal of therapy should be an A1C hemoglobin of <7%. Reevaluate the treatment regimen in patients with an A1C >8%. 12/30/2013 10:2 0 AM CDT 12/30/2013 10:27 AM CDT [facility] - 12/30/2013 12:32 PM CDT FASTING 12HRS Joseph Slade MD LAB BLOOD ORDERABLES Final Re sult Performing Organization Address [facility] Co de Phone Number [facility] HISTORICAL RESULTS * ALT (12/30/2013 10:20 AM CDT) ALT 26 0 - 33 U/L 12/30/2013 10:2 0 AM CDT 12/30/2013 10:27 AM CDT [facility] HISTORICAL RESULTS - 12/30/2013 10:57 AM CDT FASTING 12HRS Joseph Slade MD LAB BLOOD ORDERABLES Final Re sult Performing Organization Address [facility] de Phone Number [facility] HISTORICAL RESULTS * AST (12/30/2013 10:20 AM CDT) AST 16 15 - 50 U/L 12/30/2013 10:2 0 AM CDT 12/30/2013 10:27 AM CDT [facility] HISTORICAL RESULTS - 12/30/2013 10:57 AM CDT FASTING 12HRS Joseph Slade MD LAB BLOOD ORDERABLES Final Re sult Performing Organization Address [facility] de Phone Number [facility] HISTORICAL RESULTS * Lipid panel (12/30/2013 10:20 AM CDT) Triglycerides 52 0 - 199 mg/dL Comment:12 hr pc highly sher mmended for Triglyceride Cholesterol 112 0 - 199 mg/dL Comment: Borderline: ??200-239 High Risk: ?? >239 HDL Cholesterol 48 40 - 60 mg/dL Comment: Major Risk ?< 40 mg/dL Moderate Risk ?40-60 mg/dL Negative Risk ?? > 60 mg/dL LDL Cholesterol, Calc 54 0 - 130 mg/dL Comment:High Risk > 159 mg/d L Cholesterol/HDL Ratio 2.3 Comment: Cholesterol / HDL Ratio 3.5:1 or less is desirable. Cholesterol / HDL Ratio greater than 5:1 is considered higher risk for developing heart disease. 12/30/2013 10:2 0 AM CDT 12/30/2013 10:27 AM CDT Narrative [facility] HISTORICAL RESULTS - 12/30/2013 10:57 AM CDT FASTING 12HRS us Joseph Slade MD LAB BLOOD ORDERABLES Final Re sult [facility] HISTORICAL RESULTS documented in this encounter Visit Diagnoses Diagnosis Body mass index, pediatric, greater than or equal to 95th percentile for age Body Mass Index, pediatric, greater than or equal to 95th percentile for age documented in this encounter
--- OUTSIDE RECORDS SUMMARY | 2024-08-27 04:51 | XMS_ITS | Encounter Summary ---
Author Organization [facility] Care Team Providers Care Oyster Worker Name Role Phone Albert Ruby MD Primary Care Provider [phone] Encounter Details Date Type Department Care Team (Latest Contact Info) Description 05/07/2024 Travel Social History Tobacco Use Types Packs/Day Years Used Date Smoking Tobacco: Never Smokeless Tobacco: Never Alcohol Use Standard Drinks/Week Comments Not Currently 0 (1 standard drink = 0.6 oz pur e alcohol) Comments Unknown Sex and Gender Information Value Date Recorded Sex Assigned at Not on file Legal Sex Female 9:24 AM CDT Gender Identity Not on file Sexual Orientation Not on file documented as of this encounter Plan of Treatment Not on file documented as of this encounter Visit Diagnoses Not on filedocumented in this encounter Care Teams Oyster Worker Relationship Specialty Start Date End Date Albert Ruby MD [address] [address] PCP - General Family Medicine 12/26/23 documented as of this encounter
--- OUTSIDE RECORDS SUMMARY | 2024-08-27 04:51 | XMS_ITS | Referral Summary ---
Author Organization 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 Denies 05/02/2023 Comments No Sex and Gender Information Value Date Recorded Sex Assigned at Not on file Legal Sex Female 5:31 AM MANAGER INSPECTION Gender Identity Not on file Sexual Orientation Not on file Last Filed Vital Signs Vital Sign Reading Time Taken Comments Blood Pressure 148/103 05/02/2023 12:55 PM CDT Pulse 106 05/02/2023 12:55 PM CDT Temperature 37 ??C (98.6 ??F) 05/02/2023 12:55 PM CDT Respiratory Rate 18 05/02/2023 12:55 PM CDT Oxygen Saturation 100% 05/02/2023 12:55 PM CDT Inhaled Oxygen Concentration - - Weight 127 kg (280 lb) 05/02/2023 12:55 PM CDT Height 165.1 cm (5' 5 ) 05/02/2023 12:55 PM CDT Body Mass Index 46.59 05/02/2023 12:55 PM CDT Plan of Treatment Not on file Insurance ANTHEM ACCESS CHOICE BLUE ACC CHOICE OOS ANTHEM ACCESS CHOICE [employer] OPEN ACCESS Care Teams Carpenter Railcar Relationship Specialty Start Date End Date Unknown, Notinfile PCP - General 05/02/23
--- OUTSIDE RECORDS SUMMARY | 2024-08-27 04:51 | XMS_ITS | Encounter Summary ---
Author Organization 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
--- OUTSIDE RECORDS SUMMARY | 2024-08-27 04:51 | XMS_ITS | Clinical Summary ---
Author Organization [facility] Address [address] [address] Phone Care Team Providers Care Pie Icer Machine Name Role Phone Albert Ruby MD Primary Care Provider [phone] Allergies Active Allergy Reactions Criticality Noted Date Comments Apple Vomiting 01/05/2010 Apple Juice Nausea Low 01/05/2010 Lactase Other (see Comments) Medium 11/04/2010 vomiting--drinds small amounts without problems vomiting--drinds small amounts without problems vomiting--drinds small amounts without problems Medications metoprolol Succinate (TOPROL-XL) 100 MG TABLET SR 24 HR Take 100 mg by mouth daily. Active sertraline (Zoloft) 50 MG Tablet Take 50 mg by mouth daily. Active esomeprazole (NexIUM) 20 MG CAPSULE DELAYED RELEASE Take 20 mg by mouth daily. Active Active Problems No known active problems Encounters Date Type Department Care Team Description 06/06/2024 12:25 PM CDT Urgent Care Visit [facility] [address] [place] [address] Aura Torre APRN, FELICITAS Viral upper respiratory tract infection (Primary Dx); Acute cough Discharge Disposition: Discharged to home or Selfcare 06/06/2024 Travel from Last 3 Months Social History Tobacco Use Types Packs/Day Years Used Date Smoking Tobacco: Never Smokeless Tobacco: Never Tobacco Cessation:Counseling Given: Not Answered Alcohol Use Standard Drinks/Week Comments Not Currently 0 (1 standard drink = 0.6 oz pur e alcohol) Comments Unknown Sex and Gender Information Value Date Recorded Sex Assigned at Not on file Legal Sex Female 9:24 AM CDT Gender Identity Not on file Sexual Orientation Not on file Last Filed Vital Signs Vital Sign Reading Time Taken Comments Blood Pressure 138/94 06/06/2024 12:17 PM CDT Pulse 99 06/06/2024 12:17 PM CDT Temperature 36.6 ??C (97.9 ??F) 06/06/2024 1 2:17 PM CDT Respiratory Rate 20 06/06/2024 12:1 7 PM CDT Oxygen Saturation 97% 06/06/2024 12: 17 PM CDT Inhaled Oxygen Concentration - - Weight 135.5 kg (298 lb 12.8 oz) 12/26/2023 7:20 AM CDT Height 161.3 cm (5' 3.5 ) 12/26/2023 7:20 AM CDT Body Mass Index 52.1 12/26/2023 7:20 AM CDT Plan of Treatment Health Maintenance Due Date Last Done Comments Pap Smear 2020 Influenza Immunization (#1) 2024 07/3 09/2022, 06/05/2020, 05/12/2020, Additional history exists SARS-COV-2 Immunization ( season) 2024 05/13/2021, 02/23/2021 Respiratory Syncytial Virus (RSV) Immunization (Adult) (1 - 1-dose 75+ series) 2074 Hepatitis B Immunization Completed 001, 12/22/2000, 07/03/2000, Additional history exists Pneumococcal Immunization Combined Aged Out 03/26/2001, 07/03/2000, 01/18/2000 No longer eligible based on patient's age to complete this topic DTaP/Tdap/Td Immunization Discontinued 2012, 04/18/2005, 04/18/2005, Additional history exists Human Papillomavirus (HPV) Immunization Completed 05/01/2013, 08/22/2011 TdaP Immunization Completed 05/01/2013 Meningococcal Immunization (ACWY) Completed 04/19/2017, 08/22/2011 Hepatitis C Virus (HCV) Screening Completed 04/25/2024 Rotavirus Immunization Aged Out No lo nger eligible based on patient's age to complete this topic Procedures Procedure Name Priority Date/Time Associated Diagnosis Comments POC SARS-COV-2 BY MOLECULAR Routine 06/06/2024 12:22 PM CDT Acute cough from Last 3 Months Results * POC SARS-COV-2 BY MOLECULAR (06/06/2024 12:22 PM CDT) SARSCOV2 Negative Negative, INVALID PROCEDURE CONTROL Valid 06/06/2024 12:2 2 PM CDT Aura Torre NURSE EMERGENCY ROOM, MOULDER OPERATOR POINT OF CARE TEST ING (MANUAL) Final Result from Last 3 Months Insurance [facility] Care Teams Pie Icer Machine Relationship Specialty Start Date End Date Albert Ruby MD [address] [address] PCP - General Family Medicine 12/26/23
--- OUTSIDE RECORDS SUMMARY | 2024-08-27 04:51 | XMS_ITS | Clinical Summary ---
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 Gender Identity Not on file Sexual Orientation Not on file Obstetrics History Last Filed Vital Signs Vital Sign Reading [...] 05/02/2023 12:55 PM CDT Plan of Treatment Health Maintenance Due Date Last Done Comments Cervical Cancer Screening 1999 Depression Screening 1999 Hepatitis C Screening 1999 Regular Well Visit/Exam 18-64 2017 DTaP/Tdap/Td Vaccine (7 - Td or Tdap) 05/01/2023 05/01/2013, 04/18/2005, 04/18/2005, Additional history exists Covid-19 Vaccine (3 2023-2 5 season) 2024 05/13/2021, 02/23/2021 Influenza Vaccine (#1) 2024 3, 06/05/2020, 05/12/2020, Additional history exists Pneumococcal vaccine <65 Completed 001, 07/03/2000, 01/18/2000 Varicella Vaccines Completed 04/15/2005, 0 12/22/2000, 12/22/2000 HPV Vaccines Completed 05/01/2013, 04/12, 08/22/2011, Additional history exists Insurance [employer] ACCESS CHOICE BLUE ACC CHOICE OOS ANTHEM ACCESS CHOICE CIG[employer] OPEN ACCESS Care Teams Training Project Manager Relationship Specialty Start Date End Date Unknown, Notinfile PCP - General 05/02/23
--- OUTSIDE RECORDS SUMMARY | 2024-08-27 04:51 | XMS_ITS | Encounter Summary ---
Author Organization [employer] Care Team Providers Care Security Alarm Installer Name Role Phone Albert Ruby MD Primary Care Provider [phone] Encounter Details Date Type Department Care Team (Latest Contact Info) Description 12/26/2023 Travel Social History Tobacco Use Types Packs/Day [...] on filedocumented in this encounter Care Teams Security Alarm Installer Relationship Specialty Start Date End Date Albert Ruby MD [address] [address] PCP - General Family Medicine 12/26/23 documented as of this encounter
--- OUTSIDE RECORDS SUMMARY | 2024-08-27 04:51 | XMS_ITS | Encounter Summary ---
Author Organization [facility] Address [address] [place] [address] Care Team Providers Care Renal Case Manager Name Role Phone Unknown, Notinfile Primary Care Provider Unavail able Encounter Details Date Type Department Care Team (Late st Contact Info) Description 09/23/2021 6:35 PM SLEEVE BOTTOM FELLER Lab [address] [address] Social History Tobacco Use Types Packs/Day Years Used Date Smoking Tobacco: Never Smokeless Tobacco: Never Comments No Sex and Gender Information Value Date Recorded Sex Assigned at Not on file Legal Sex Female 5:31 AM SLEEVE BOTTOM FELLER Gender Identity Not on file Sexual Orientation Not on file documented as of this encounter Plan of Treatment Not on file documented as of this encounter Procedures Procedure Name Priority Date/Time Associated Diagnosis Comments VARICELLA ZOSTER ANTIBODY, IGG Routine 09/23/2021 11:52 AM SLEEVE BOTTOM FELLER documented in this encounter Results * Varicella Zoster IgG antibody Blood (09/23/2021 11:52 AM SLEEVE BOTTOM FELLER) VZV IgG Nonreactive Nonreactive [facility] Comment:No IgG antibodies sp ecific to Varicella Zoster virus detected.?? Patient is presumed not to have had a previous exposure to Varicella Zoster through??infection or vaccination. ?? Blood 09/23/2021 11:5 2 AM SLEEVE BOTTOM FELLER 09/23/2021 6:32 PM SLEEVE BOTTOM FELLER Sly Garner IV, MD LAB MICROBIOLO GY - GENERAL ORDERABLES Final Result [facility] [place] [address] documented in this encounter Visit Diagnoses Not on filedocumented in this encounter Care Teams Renal Case Manager Relationship Specialty Start Date End Date Unknown, Notinfile PCP - General 09/21/21 05/01/23 documented as of this encounter
--- OUTSIDE RECORDS SUMMARY | 2024-08-27 04:51 | XMS_ITS | Encounter Summary ---
Author Organization [facility] Healthcare Address [address] [place] [address] Care Team Providers Care Chief Engineer Drilling And Recovery Name Role Phone Unknown, Notinfile Primary Care Provider Unavail able Reason for Visit * Reason Comments Abdominal Pain Encounter Details Date Type Department Care Team (Late st Contact Info) Description 09/21/2021 4:16 PM PEARL CUTTER - 09/21/2021 8:40 PM PEARL CUTTER Emergency [facility] Emergency Department [address] [place] [id number] [place] [id number] [address] Radha Mendes MD [address] [place] [address] Abdominal pain (Primary Dx) Discharge Disposition: Discharge to home or self care Social History Tobacco Use Types Packs/Day Years Used Date Smoking Tobacco: Never Smokeless Tobacco: Never Comments No Sex and Gender Information Value Date Recorded Sex Assigned at Not on file Legal Sex Female 5:31 AM PEARL CUTTER Gender Identity Not on file Sexual Orientation Not on file documented as of this encounter Last Filed Vital Signs Vital Sign Reading Time Taken Comments Blood Pressure 110/67 09/21/2021 8:00 PM PEARL CUTTER Pulse 68 09/21/2021 8:00 PM PEARL CUTTER Temperature 36.7 ??C (98.1 ??F) 09/21/2021 1:10 PM CS T Respiratory Rate 18 09/21/2021 8:00 PM PEARL CUTTER Oxygen Saturation 99% 09/21/2021 8:00 PM PEARL CUTTER Inhaled Oxygen Concentration - - Weight 104.3 kg (230 lb) 09/21/2021 1:10 PM PEARL CUTTER Height 167.6 cm (5' 6 ) 09/21/2021 1:10 PM PEARL CUTTER Body Mass Index 37.12 09/21/2021 1:10 PM PEARL CUTTER documented in this encounter Discharge Diagnoses Diagnosis Left upper quadrant pain - LEFT UPPER QUADRANT PAIN Abdominal pain, left upper quadrant Left lower quadrant pain - LEFT LOWER QUADRANT PAIN Abdominal pain, left lower quadrant documented in this encounter Discharge Instructions * Attachments The following attachments cannot be sent through Care Everywhere. * Abdominal Pain, Unknown Cause, (Female) (Congolese) * Symptoms With Uncertain Cause (Congolese) documented in this encounter Medications at Time of Discharge dicyclomine (BENTYL) 20 mg tablet Take 1 tablet (20 mg total) by mouth 2 (two) times a day for 10 days 20 tablet 09/21/2021 promethazine (PHENERGAN) 25 mg tablet Take 1 tablet (25 mg total) by mouth every 6 (six) hours as needed for nausea 20 tablet 09/21/2021 documented as of this encounter Ordered Prescriptions Prescription Sig Dispense Quantity Refills Last Filled Start Date End Date promethazine (PHENERGAN) 25 mg tablet Take 1 tablet (25 mg total) by mouth every 6 (six) hours as needed for nausea 20 tablet 09/21/2021 dicyclomine (BENTYL) 20 mg tablet Take 1 tablet (20 mg total) by mouth 2 (two) times a day for 10 days 20 tablet 09/21/2021 documented in this encounter Discharge Disposition Disposition Code Departure Means Destination Discharge to home or self care documented in this encounter ED Notes * Ac Price MD - 09/21/2021 4:20 PM CST HPI Chief Complaint Patient presents with ??? Abdominal Pain HPI 4:20 PM Laura Finley is a 21 y.o. female presenting to the ED c/o left upper quadrant pain radiating to the left flank which started this morning. Intensity is mild to moderate it is worse with lying down and better with ibuprofen or Maalox. It is dull to cramping in nature. She has some associated nausea and vomiting and a few loose stools. No hematemesis melena or hematochezia. No fevers chills rigors chest pain or shortness of breath. No urinary symptoms No prior history of kidney stones Patient History: Past Medical History: Diagnosis Date ??? Acquired short Achilles tendon Contracture, Achilles tendon - (Added by TW Conv) ??? IBS (irritable bowel syndrome) ??? Pain in ankle Ankle pain - (Added by TW Conv) History reviewed. No pertinent surgical history. History reviewed. No pertinent family history. Social History Tobacco Use ??? Smoking status: Never Smoker ??? Smokeless tobacco: Never Used Substance Use Topics ??? Alcohol use: Not on file ??? Drug use: Not on file No current facility-administered medications for this encounter. No current outpatient medications on file. Review of Systems Review of Systems All systems reviewed and are neg or non contributory for this patients presentation today other than as stated in the HPI . Physical Exam ED Triage Vitals [09/21/21 1310] Temp Pulse Resp BP SpO2 36.7 ??C (98.1 ??F) 81 18 156/86 100 % Temp src Heart Rate Source Patient Position BP Location FiO2 (%) Tympanic Monitor -- Right arm -- Physical Exam Vitals and nursing note reviewed. Constitutional: General: She is not in acute distress. Appearance: She is well-developed. Comments: Very pleasant female HENT: Head: Normocephalic and atraumatic. Nose: Nose normal. Eyes: Conjunctiva/sclera: Conjunctivae normal. Pupils: Pupils are equal, round, and reactive to light. Cardiovascular: Rate and Rhythm: Normal rate and regular rhythm. Heart sounds: Normal heart sounds. No murmur heard. Pulmonary: Effort: Pulmonary effort is normal. No respiratory distress. Breath sounds: Normal breath sounds. Abdominal: Palpations: Abdomen is soft. Tenderness: There is abdominal tenderness. Comments: Mild tenderness in the epigastric area and left upper quadrant Musculoskeletal: General: No swelling or tenderness. Cervical back: Normal range of motion and neck supple. Right lower leg: No edema. Left lower leg: No edema. Skin: General: Skin is warm and dry. Neurological: General: No focal deficit present. Mental Status: She is alert and oriented to person, place, and time. Mental status is at baseline. Procedures MDM Labs Reviewed URINALYSIS AND REFLEX TO MICROSCOPIC AND CULTURE - Abnormal Result Value Color, ur Yellow Clarity, ur Cloudy (*) Specific gravity, ur 1.019 pH, urine 6.0 Protein, ur ql Negative Glucose, ur ql Negative Ketones, ur Negative Bilirubin, ur Negative Blood, ur Negative Urobilinogen, ur <2.0 Nitrite, ur Negative Leukocyte esterase, ur Negative UA reflex comment Value: Reflex conditions for microscopic UA and culture not met. Narrative: Urine pH is affected by diet, medications, systemic acid-base disturbances, and renal tubular function. pH may affect urinary stone formation. For example, urine pH below 6.0 may help reduce the tendency for calcium phosphate stones and pH greater than 6.0 may reduce the tendency for uric acid stone formation. Source: [facility] [employer].Last revised 09-21-2017 CBC WITH AUTO DIFFERENTIAL - Abnormal WBC 12.8 (*) Hgb 12.0 Hct 38.3 Plt 364 MPV 12.1 RBC 4.97 MCV 77.1 (*) MCH 24.1 (*) MCHC 31.3 (*) RDW CV 14.6 RDW SD 40.5 COMPREHENSIVE METABOLIC PANEL - Abnormal Sodium 132 (*) Potassium, pl 4.1 Chloride 99 CO2 24 Anion gap 9 BUN 10 Creatinine 0.76 Glucose 88 Calcium 9.7 Bilirubin, total 0.2 Protein, pl 8.2 Albumin 4.3 Alk phos 135 (*) ALT 22 AST 18 AMYLASE - Abnormal Amylase 29 (*) DIFFERENTIAL AUTO - Abnormal Neutrophil abs 8.6 (*) Imm gran abs 0.0 Lymphocyte abs 3.4 (*) Monocyte abs 0.7 Eosinophil abs 0.1 Basophil abs 0.0 Neutrophil pct 67.1 Imm gran pct 0.2 Lymphocyte pct 26.3 Monocyte pct 5.7 Eosinophil pct 0.5 Basophil pct 0.2 POCT RAPID HIV [facility] ED ONLY - Normal Rapid HIV, POC Negative Lot Number [id number] QC Control Line Acceptable POCT HCG, URINE - Normal HCG, ur, POC Negative Lot Number [id number] QC Backgroud Clear Acceptable QC Control Line Acceptable LIPASE Lipase [address] Abdomen Pelvis W Contrast (Results Pending) BP 156/86 (BP Location: Right arm) Pulse 81 Temp 36.7 ??C (98.1 ??F) (Tympanic) Resp 18 Ht 167.6 cm (5' 6 ) Wt 104.3 kg (230 lb) SpO2 100% BMI 37.12 kg/m?? [facility] ED Course as of 09/21/211831 Time: 09/21 1546 Comment: Hiv negative By: Tamanna Hong NP This examination was transcribed using the Quickoffice voice recognition system without human gang saw operator. In an effort to expedite patient care, this report has not been adjusted for typographical, grammatical, and syntax by a trained medical doctor md. Close outpatient follow-up with a low threshold to return has been mandated , concerning symptoms have been emphasized in detail, and this patient expresses understanding AC Stewart MD, am the SOLO provider for this patient. Any documentation and charting performed by [facility] on and this medical record is solely for triage purposes only Signed out to Clinical Impression: Abdominal pain Ac Price MD 09/21/211831 L CUTTER * Jeni Khan RN - 09/21/2021 1:11 PM CST Pt reports upper LUQ radiating to her back that began this morning. Pt also reports nausea/vomiting/diarrhea. Hx IBS. L CUTTER documented in this encounter Miscellaneous Notes * ED Re-evaluation Note - Radha Mendes MD - 09/21/2021 8:27 PM PEARL CUTTER ED Re-evaluation Took over care pending CT scan. Discussed the CT findings with the patient. Patient with discharge home with medication. Close follow-up PCP recommended for further evaluation and treatment. Radha Mendes MD 09/21/212027 L CUTTER * ED Triage Provider Note - Tamanna Hong NP - 09/21/2021 3:35 PM PEARL CUTTER Pt luq radiating to back for 2 days, worse today. Also with n/v/d. Denies blood in stool. Denies body aches fever chills. L CUTTER documented in this encounter Plan of Treatment Not on file documented as of this encounter Procedures Procedure Name Priority Date/Time Associated Diagnosis Comments CT ABDOMEN PELVIS W CONTRAST ED 09/21/2021 5:56 PM PEARL CUTTER POCT RAPID HIV ANTIBODY COMMUNITY SCREENING-DAMARIS ELIGIBLE Routine 09/21/2021 5:12 PM PEARL CUTTER POCT HCG, URINE Routine 09/21/2021 5:00 PM PEARL CUTTER EGFR STAT 09/21/2021 4:38 PM PEARL CUTTER DIFFERENTIAL AUTO STAT 09/21/2021 4:3 8 PM PEARL CUTTER CBC WITH AUTO DIFFERENTIAL STAT 09/21/2021 4:38 PM PEARL CUTTER LIPASE STAT 09/21/2021 4:38 PM PEARL CUTTER AMYLASE STAT 09/21/2021 4:38 PM PEARL CUTTER COMPREHENSIVE METABOLIC PANEL STAT 09/21/2021 4:38 PM PEARL CUTTER URINALYSIS AND REFLEX TO MICROSCOPIC AND CULTURE STAT 09/21/2021 3:28 PM PEARL CUTTER documented in this encounter Results * CT Abdomen Pelvis W Contrast (09/21/2021 5:56 PM PEARL CUTTER) Anatomical Region Laterality Modality Body N/A Computed Tomogra phy 09/21/2021 6:42 PM PEARL CUTTER Impressions 09/21/2021 6:42 PM PEARL CUTTER No acute abdominal findings Electronically signed by: Prasad Vang M.D. Narrative 09/21/2021 6:42 PM PEARL CUTTER EXAMINATION: CT ABDOMEN AND PELVIS WITH IV CONTRAST HISTORY: Epigastric pain abdominal pain TECHNIQUE: Transaxial imaging through the abdomen and pelvis was performed with 2-D reformats following the intravenous administration of approximately 100 mL of Optiray-350. FINDINGS: There are no acute changes in the visualized lung bases. ??There is no sign of pneumoperitoneum. The liver was unremarkable. The gallbladder, spleen and pancreas were unremarkable. There is a normal appearance of both adrenal glands and both kidneys. The small bowel pattern is not significantly dilated and there are no significant air-fluid levels. ??There is a normal-appearing appendix. There is moderate fecal loading of the colon. There is no ascites or increased cul-de-sac fluid. ??The urinary bladder as imaged is unremarkable. ??10 Millimeter left ovarian cyst, remaining adnexa and uterus unremarkable Procedure Note Prasad Vang MD - 09/21/2021 EXAMINATION: CT ABDOMEN AND PELVIS WITH IV CONTRAST HISTORY: Epigastric pain abdominal pain TECHNIQUE: Transaxial imaging through the abdomen and pelvis was performed with 2-D reformats following the intravenous administration of approximately 100 mL of Optiray-350. FINDINGS: There are no acute changes in the visualized lung bases. There is no sign of pneumoperitoneum. The liver was unremarkable. The gallbladder, spleen and pancreas were unremarkable. There is a normal appearance of both adrenal glands and both kidneys. The small bowel pattern is not significantly dilated and there are no significant air-fluid levels. There is a normal-appearing appendix. There is moderate fecal loading of the colon. There is no ascites or increased cul-de-sac fluid. The urinary bladder as imaged is unremarkable. 10 Millimeter left ovarian cyst, remaining adnexa and uterus unremarkable IMPRESSION: No acute abdominal findings Electronically signed by: Prasad Vang M.D. Ac Price MD [facility] CT PROCEDURES Final Result * POCT rapid HIV (09/21/2021 5:12 PM PEARL CUTTER) [facility] Rapid HIV, POC Negative Negative Lot Number [id number] QC Control Line Acceptable Blood specimen (specimen) 09/21/2021 5:12 PM PEARL CUTTER Ac Price MD POINT OF CARE TEST ORDERABLES Final Result * POCT hCG, urine (09/21/2021 5:00 PM PEARL CUTTER) Pathologist [facility] HCG, ur, POC Negative Lot Number [id number] QC Backgroud Clear Acceptable QC Control Line Acceptable Urine 09/21/2021 5:00 PM PEARL CUTTER Tamanna Kelsey Hong NP POINT OF CARE TEST ORDE RABLES Final Result * eGFR (09/21/2021 4:38 PM PEARL CUTTER) Pathologist [facility] eGFR 114 mL/min/1. 73 m2 MORE JHAVERI Comment: Interpretive Data Reference Interval Normal ?>/= 90 mL/min/1.73m2 Mildly decreased* ? 60 - 89 mL/min/1.73m2 Mildly to moderately decreased ?45 - 59 mL/min/1.73m2 Moderately to severely decreased ??30 - 44 mL/min/1.73m2 Severely decreased ?15 - 29 mL/min/1.73m2 Kidney Failure ?< 15 ??mL/min/1.73m2 *Relative to young adult level Estimated glomerular filtration rate is determined by the 2020 CKD-EPI equation recommended by the National Kidney Foundation (A Unifying Approach to GFR Estimation: Recommendations of the NKF-ASK Task Force on Reassessing the Inclusion of Race in Diagnosing Kidney Disease, JASN 2020). The CKD-EPI equation should not be used for patients with unstable renal function and has not been validated in children and those over 70. Current interpretive data was last reviewed 2021. Testing performed by: [facility], [facility], [place] [address] Blood 09/21/2021 4:38 PM PEARL CUTTER 09/21/2021 4:47 PM PEARL CUTTER us Tamanna Cole Hal HARDNESS TESTER LAB BLOOD ORDERABLES Fi nal Result [facility] [address] [address] Department [place] [address] * (ABNORMAL) Differential, auto (09/21/2021 4:38 PM PEARL CUTTER) Neutrophil abs 8.6(H) 1.7 - 6.5 K/cumm CERNER Comment:Testing performed by : [facility], [facility] [place] [address] Imm gran abs 0.0 0.0 - 0.1 K/cumm CERNER Comment:Testing performed by : [facility] [place] [address] Lymphocyte abs 3.4(H) 0.8 - 3.3 K/cumm CERNER Comment:Testing performed by : [address] [place] [address] Monocyte abs 0.7 0.2 - 0.8 K/cumm CERNER Comment:Testing performed by : [address] [place] [address] Eosinophil abs 0.1 0.0 - 0.5 K/cumm CERNER Comment:Testing performed by : [place] [address] [place] [address] Basophil abs 0.0 0.0 - 0.1 K/cumm CERNER Comment:Testing performed by : [address] [place] [address] Neutrophil pct 67.1 % CERNER Comment: Interpretive Data Percent cell count reference ranges are not reported, since discordance with absolute values may lead to misinterpretation of CBC data. Current Interpretive Data was last revised on 2017. Testing performed by: [address] [place] [address] Imm gran pct 0.2 % CERNER Comment: Interpretive Data Percent cell count reference ranges are not reported, since discordance with absolute values may lead to misinterpretation of CBC data. Current Interpretive Data was last revised on 2017. Testing performed by: [address] [place] [address] Lymphocyte pct 26.3 % [facility] Comment: Interpretive Data Percent cell count reference ranges are not reported, since discordance with absolute values may lead to misinterpretation of CBC data. Current Interpretive Data was last revised on 2017. Testing performed by: [facility], [address] [place] [address] Monocyte pct 5.7 % [facility] Comment: Interpretive Data Percent cell count reference ranges are not reported, since discordance with absolute values may lead to misinterpretation of CBC data. Current Interpretive Data was last revised on 2017. Testing performed by: [facility], [address] [address] Eosinophil pct 0.5 % [facility] Comment: Interpretive Data Percent cell count reference ranges are not reported, since discordance with absolute values may lead to misinterpretation of CBC data. Current Interpretive Data was last revised on 2017. Testing performed by: [facility], [facility] [place] [address] Basophil pct 0.2 % [facility] Comment: Interpretive Data Percent cell count reference ranges are not reported, since discordance with absolute values may lead to misinterpretation of CBC data. Current Interpretive Data was last revised on 2017. Testing performed by: [facility], [place] [address] Blood 09/21/2021 4:38 PM PEARL CUTTER 09/21/2021 4:47 PM PEARL CUTTER Tamanna Hong HARDNESS TESTER LAB BLOOD ORDERABLES Fi nal Result [place] [address] [address] Department [place] [address] * Lipase (09/21/2021 4:38 PM PEARL CUTTER) Lipase 16 10 - 99 Units/L MORE JHAVERI Comment:Testing performed by : [facility], [place] [address] Blood 09/21/2021 4:38 PM PEARL CUTTER 09/21/2021 4:47 PM PEARL CUTTER [facility] HARDNESS TESTER LAB BLOOD ORDERABLES Fi nal Result Performing Organization Address [facility] Co de Phone Number [facility] [address] [address] [facility] [place] [address] * (ABNORMAL) Amylase (09/21/2021 4:38 PM PEARL CUTTER) Amylase 29(L) 30 - 99 Units/L CERNER CH Comment:Testing performed by : [facility] [address], [place] [address] Blood 09/21/2021 4:38 PM PEARL CUTTER 09/21/2021 4:47 PM PEARL CUTTER [facility] LAB BLOOD ORDERABLES Fi nal Result Performing Organization Address [facility] de Phone Number [facility] [address] [address] [facility] [place] [address] * (ABNORMAL) Comprehensive metabolic panel (09/21/2021 4:38 PM PEARL CUTTER) Pathologist [facility] Sodium 132(L) 135 - 145 mmol/L CERNER CH Comment:Testing performed by : [facility] [address], [place] [address] Potassium, pl 4.1 3.3 - 4.9 mmol/L CERNER CH Comment:Testing performed by : [facility] [address], [place] [address] Chloride 99 97 - 110 mmol/L CERNER CH Comment:Testing performed by : [facility] [address], [place] [address] CO2 24 22 - 32 mmol/L CERNER CH Comment:Testing performed by : [facility] [address], [place] [address] Anion gap 9 2 - 15 mmol/L CERNER CH Comment:Testing performed by : [facility] [address], [place] [address] BUN 10 8 - 25 mg/dL CERNER CH Comment:Testing performed by : [facility] [address], [place] [address] Creatinine 0.76 0.60 - 1.10 mg/dL CERNER CH Comment:Testing performed by : [facility] [address], [place] [address] Glucose 88 70 - 199 mg/dL CERNER Comment: Interpretive Data Fasting glucose >/= 126 mg/dl is diagnostic for diabetes. ?? Fasting is defined as no caloric intake for at least 8 hours. Fasting glucose between 100 mg/dl to 125 mg/dl is diagnostic of prediabetes. In a patient with classic symptoms of hyperglycemia or hyperglycemic crisis, a random glucose >/= 200 mg/dl is diagnostic for diabetes. In the absence of unequivocal hyperglycemia, results should be confirmed by repeat testing. The classification and Diagnosis of Diabetes Diabetes Care 2017;40 (Suppl. 1):S11. Current interpretive data was last revised 2017. Testing performed by: [facility] [address], [place] [address] Calcium 9.7 8.5 - 10.3 mg/dL CERNER Comment:Testing performed by : [facility] [address], [place] [address] Bilirubin, total 0.2 0.1 - 1.2 mg/dL CERNER Comment:Testing performed by : [facility] [address], [place] [address] Protein, pl 8.2 6.5 - 8.5 g/dL CERNER Comment:Testing performed by : [facility] [address], [place] [address] Albumin 4.3 3.5 - 5.0 g/dL CERNER Comment:Testing performed by : [facility] [address], [place] [address] Alk phos 135(H) 40 - 130 Units/L CERNER Comment:Testing performed by : [facility] [address], [place] [address] ALT 22 7 - 45 Units/L CERNER Comment:Testing performed by : [facility] [address], [place] [address] AST 18 10 - 45 Units/L CERNER Comment:Testing performed by : [facility] [place] [address] Blood 09/21/2021 4:38 PM PEARL CUTTER 09/21/2021 4:47 PM PEARL CUTTER us Tamanna Hong NP LAB BLOOD ORDERABLES Fi nal Result [facility] [address] Department [place] [address] * (ABNORMAL) CBC with auto differential (09/21/2021 4:38 PM PEARL CUTTER) [facility] WBC 12.8(H) 3.8 - 9.9 K/cumm CERNER CH Comment:Testing performed by : [facility] [address], [place] [address] Hgb 12.0 11.9 - 15.5 g/dL CERNER CH Comment:Testing performed by : [facility] [address], [place] [address] Hct 38.3 35.6 - 45.5 % CERNER CH Comment:Testing performed by : [facility] [address], [place] [address] Plt 364 150 - 400 K/cumm CERNER CH Comment:Testing performed by : [facility] [address], [place] [address] MPV 12.1 9.1 - 12.3 fL CERNER CH Comment:Testing performed by : [facility] [address], [place] [address] RBC 4.97 3.90 - 5.20 M/cumm CERNER CH Comment:Testing performed by : [facility] [address], [place] [address] MCV 77.1(L) 81.3 - 96.4 fL CERNER CH Comment:Testing performed by : [facility] [address], [place] [address] MCH 24.1(L) 27.1 - 33.3 pg CERNER CH Comment:Testing performed by : [facility] [address], [place] [address] MCHC 31.3(L) 32.3 - 35.7 g/dL CERNER CH Comment:Testing performed by : [facility] [address], [place] [address] RDW CV 14.6 11.1 - 14.9 % CERNER CH Comment:Testing performed by : [facility] [address], [place] [address] RDW SD 40.5 35.7 - 48.1 fL CERNER CH Comment:Testing performed by : [facility] [address], [place] [address] Blood 09/21/2021 4:38 PM PEARL CUTTER 09/21/2021 4:47 PM PEARL CUTTER us Tamanna Cole Hong HARDNESS TESTER LAB BLOOD ORDERABLES Fi nal Result [facility] [address] [address] Department [place] [address] * (ABNORMAL) Urinalysis reflex to microscopic and culture Urine (09/21/2021 3:28 PM PEARL CUTTER) Color, ur Yellow Yellow CERNER CH Comment:Testing performed by : [facility], [place] [address] Clarity, ur Cloudy(A) Clear CERNER CH Comment:Testing performed by : [facility], [place] [address] Specific gravity, ur 1.019 1.003 - 1.030 CERNER CH Comment:Testing performed by : [facility], [place] [address] pH, urine 6.0 CERNER CH Comment:Testing performed by : [facility], [place] [address] Protein, ur ql Negative Negative CERNER CH Comment:Testing performed by : [facility], [place] [address] Glucose, ur ql Negative Negative CERNER CH Comment:Testing performed by : [facility], [address] [address] Ketones, ur Negative Negative CERNER CH Comment:[facility] [address], [place] [address] Bilirubin, ur Negative Negative CERNER CH Comment:Testing performed by : [facility], [place] [address] Blood, ur Negative Negative CERNER CH Comment:Testing performed by : [facility], [address] [address] Urobilinogen, ur <2.0 <2.0 mg/dL CERNER CH Comment:Testing performed [facility] : [facility], [place] [address] Nitrite, ur Negative Negative CERNER CH Comment:[facility] performed [facility], [place] [address] Leukocyte esterase, ur Negative Negative CERNER CH Comment:[facility] performed [facility], [place] [address] UA reflex comment Reflex conditions for microscopic UA and culture not met. MORE JHAVERI Comment:Testing performed by : [facility], [address] [place] [address] Urine 09/21/2021 3:28 PM PEARL CUTTER 09/21/2021 3:36 PM PEARL CUTTER Narrative MORE JHAVERI - 09/21/2021 3:43 PM PEARL CUTTER ?? Urine pH is affected by diet, medications, systemic acid-base disturbances, and renal tubular function. ??pH may affect urinary stone formation. ??For example, urine pH below 6.0 may help reduce the tendency for calcium phosphate stones and pH greater than 6.0 may reduce the tendency for uric acid stone formation. Source: [employer]. Last revised 09-21-2017 us Tamanna Hong NP LAB MICROBIOLOGY - GENE RAL ORDERABLES Final Result MORE [address] [address] Department [place] [address] documented in this encounter Visit Diagnoses Diagnosis Abdominal pain- Primary Abdominal pain, unspecified site documented in this encounter Administered Medications Inactive Administered Medications - up to 3 most recent administrations Medication Order MAR Action Action Date Dose Rate Site ioversoL (OPTIRAY 350) syringe syringe 100 mL 100 mL, intravenous, Once in imaging, contrast, Starting on Mon09/21/21 at 1732, For 1 dose Contrast Given 09/21/2021 5:46 PM PEARL CUTTER 94 mL ketorolac (TORADOL) 30 mg/mL (1 mL) injection 30 mg 30 mg, intravenous, Once, On Mon09/21/21 at 1721, For 1 dose, For Adult IV push, administer over 15 seconds Given 09/21/2021 5:25 PM PEARL CUTTER 30 mg documented in this encounter Active and Recently Administered Medications Times are shown in PEARL CUTTER. Scheduled Medication Order 09/19/2021 09/20/2021 09/21/2021 ketorolac (TORADOL) 30 mg/mL (1 mL) injection 30 mg (COMPLETED) 30 mg, intravenous, Once, On e 09/21/21 at 1721, For 1 dose, For Adult IV push, administer over 15 seconds 1725 (Given - Provid er: Joseph Lyles RN) PRN Medication Order 09/19/2021 09/20/2021 09/21/2021 ioversoL (OPTIRAY 350) syringe syringe 100 mL (COMPLETED) 100 mL, intravenous, Once in imaging, contrast, Starting on Mon09/21/21 at 1732, For 1 dose 1746 (Contrast Given - Provider: Elizabeth Carvajal, RT) documented in this encounter Orders Nursing Count Last Ordered Date First Orde red Date NURSING COMMUNICATION 09/21/2021 documented in this encounter Care Teams Chief Engineer Drilling And Recovery Relationship Specialty Start Date End Date Unknown, Notinfile PCP - General 09/21/21 05/01/23 documented as of this encounter
--- OUTSIDE RECORDS SUMMARY | 2024-08-27 04:51 | XMS_ITS | Encounter Summary ---
Author Organization [employer] Care Team Providers Care Night Auditor Name Role Phone Albert Ruby MD Primary Care Provider [phone] Encounter Details Date Type Department Care Team (Latest Contact Info) Description 06/06/2024 Travel Social History Tobacco Use Types Packs/Day [...] filedocumented in this encounter Additional Health Concerns Infection Onset Date Last Indicated Resolved Time COVID - 19 06/06/2024 06/06/2024 06/06/2024 12:3 7 PM CDT documented as of this encounter Care Teams Night Auditor Relationship Specialty Start Date End Date Albert Ruby MD [address] [address] PCP - General Family Medicine 12/26/23 documented as of this encounter
--- OUTSIDE RECORDS SUMMARY | 2024-08-27 04:51 | XMS_ITS | Encounter Summary ---
Author Organization [facility] Healthcare Address [address] [place] [address] Care Team Providers Care Silk Screen Cutter Name Role Phone Unknown, Notinfile Primary Care Provider Unavail able Encounter Details Date Type Department Care Team (Late st Contact Info) Description 05/02/2023 12:45 PM CDT - 05/02/2023 4:27 PM CDT Emergency [facility] Emergency Department [address] [place] [address] Discharge Disposition: Left without being seen Social History Tobacco Use Types Packs/Day Years [...] on file Legal Sex Female 5:31 AM WAISTBAND SETTER LOCKSTITCH Gender Identity Not on file Sexual Orientation [...] Mass Index 46.59 05/02/2023 12:55 PM CDT documented in this encounter Medications at Time of Discharge promethazine (PHENERGAN) 25 mg tablet Take 1 tablet (25 mg total) by mouth every 6 (six) hours as needed for nausea 20 tablet 09/21/2021 documented as of this encounter Discharge Disposition Disposition Code Departure Means Destination Left without being seen documented in this encounter ED Notes * Dave Horowitz RN - 05/02/2023 12:52 PM CDT Pt to ED via POV for Hypertension and chest tightness. Per Pt around 10am she became dizzy and Pts reporting BP of 191/121. Pt reporting mid-sternal chest tightness at 10am as well. Pt Denies N/V/D. documented in this encounter Plan of Treatment Not on file documented as of this encounter Procedures Procedure Name Priority Date/Time Associated Diagnosis Comments ECG 12-LEAD STAT 05/02/2023 12:57 PM CDT documented in this encounter Results * ECG 12 lead (05/02/2023 12:57 PM CDT) 05/02/2023 12:5 7 PM CDT Narrative [facility] - 05/02/2023 3:43 PM CDT Vent Rate: 91 bpm RR Interval: 654 msec NM Interval: 136 msec QRS Duration: 94 msec QT Interval: 336 msec QTC Interval: 385 msec P-R-T [place]: 11 - 10 - -19 degrees SINUS RHYTHM VOLTAGE CRITERIA FOR LVH ??[MEETS CRITERIA IN ONE OF: R(aVL), S(V1), R(V5), R(V5/V6)+S(V1)] POSSIBLE ANTERIOR MYOCARDIAL INFARCTION , OF INDETERMINATE AGE [30 ms Q WAVE IN V3/V4, OR R < 0.2 mV IN V4] MODERATE T-WAVE ABNORMALITY, CONSIDER infero ??LATERAL ISCHEMIA ??[-0.1+ mV T- WAVE IN I/aVL/V5/V6] ABNORMAL ECG Electronically Signed By: Sahil Rosenthal MD us Sunita Rojo MD ECG ORDERABLES Fin al Result [facility] documented in this encounter Visit Diagnoses Not on filedocumented in this encounter Care Teams Silk Screen Cutter Relationship Specialty Start Date End Date Unknown, Notinfile PCP - General 05/02/23 documented as of this encounter
--- OUTSIDE RECORDS SUMMARY | 2024-08-27 04:51 | XMS_ITS | Encounter Summary ---
Author Organization [facility] Address [address] [place] [address] Phone Care Team Providers Care Churn Operator Name Role Phone Albert Ruby MD Primary Care Provider [phone] Reason for Visit * Reason Onset Date Comments Appointment 12/26/2023 Encounter Details Date Type Department Care Team (Late st Contact Info) Description 12/26/2023 Telephone [facility] - Family Medicine [facility] [address] [place] [address] Prema Carlos, COMMUNICATIONS TECHNOLOGIST, PINSETTER MECHANIC AUTOMATIC [address] [place] [address] Appointment Social History Tobacco Use Types Packs/Day Years Used Date Smoking Tobacco: Never Assessed Comments Unknown Sex and Gender Information Value Date Recorded Sex Assigned at Not on file Legal Sex Female 9:24 AM CDT Gender Identity Not on file Sexual Orientation Not on file documented as of this encounter Miscellaneous Notes * Telephone Encounter - Janee Andersen - 12/26/2023 7:30 AM CDT Pt came into the office to be seen. When going through questions patient stated information that she wanted addressed. I told her since she was establishing care we would make a second visit for her menstrual. Pt stated that was the only reason she was coming in. I asked her was she looking for a new PCP she stated no, she was only supposed to see central supply clerk her PCP put in a referral for her to see Prema. Call center placed the patient on Primary Care's Schedule. I told her if he placed a referral that office would contact her and I gave that offices information. documented in this encounter Plan of Treatment Not on file documented as of this encounter Visit Diagnoses Not on filedocumented in this encounter Care Teams Churn Operator Relationship Specialty Start Date End Date Albert Ruby MD [address] [address] PCP - General Family Medicine 12/26/23 documented as of this encounter
--- OUTSIDE RECORDS SUMMARY | 2024-08-27 04:51 | XMS_ITS | Encounter Summary ---
Author Organization [facility] Address [address] [place] [address] Phone Care Team Providers Care Manager Of Recruiting Name Role Phone Albert Ruby MD Primary Care Provider [phone] Reason for Visit * Reason Comments Migraine Encounter Details Date Type Department Care Team (Latest Contact Info) Description 05/07/2024 9:55 AM CDT Urgent Care Visit [facility] [place] [address] [place] [address] Aura Torre, BUILDING MOVER, FELLED SEAM OPERATOR CHAINSTITCH [address] [place] [address] Other migraine without status migrainosus, intractable (Primary Dx) Discharge Disposition: Discharged to home or Selfcare Social History Tobacco Use Types Packs/Day Years [...] Reading Time Taken Comments Blood Pressure 142/96 05/07/2024 10:09 AM CDT Pulse 80 05/07/2024 10:09 AM CDT Temperature 36.3 ??C (97.4 ??F) 05/07/2024 10:09 AM C DT Respiratory Rate 18 05/07/2024 10:09 AM CDT Oxygen Saturation 99% 05/07/2024 10:09 AM CDT Inhaled Oxygen Concentration - - Weight - - Height - - Body Mass Index - - documented in this encounter Patient Instructions * Patient Instructions* Aura Torre APRN, CNP - 05/07/2024 9:55 AM CDT Continue with excedrin as discussed per package directions Discussed red flag signs of when to seek emergency medical care. If symptoms persist follow up with pcp * Attachments The following attachments cannot be sent through Care Everywhere. * General Headache Without Cause [id number] (Azeri) documented in this encounter Progress Notes * Jay Armando - 05/07/2024 9:55 AM CDT Laura complains of Migraine that started two days ago and has not improved since onset. Pt states migraine is in back of neck and front of head. Pt states she had hx of migraine when she was younger. Pt rates migraine 03/20. Pt has taken excedrin, which has not offered any relief. Pt states migraine has made her dizzy at times. Migraine Today's ROS * Aura Torre APRN, CNP - 05/07/2024 9:55 AM CDT HPI: Laura Finley is a 23 y.o. female in the [facility] ed care today for headache for 2 days. She has a history of migraines when she was younger. She states this is similar. She has some nasal congestion. She denies ear pain, runny nose, cough, fever, chills, and sore throat. She denies nausea. Shedoes have some light and sound sensitivity. She does have some fatigue and body aches. She has beentaking Excedrin with mild relief for a couple of hours but the symptoms return. Symptoms started 2 days Severity of symptoms is moderate Symptoms have Worsened Patient is currently taking over the counter excedrin for the symptoms. Smoker: No No pertinent Past, family, or social history was noted There is no problem list on file for this patient. ROS: Review of Systems Constitutional: Positive for fatigue. Negative for chills and fever. HENT: Negative for ear pain and sore throat. Eyes: Negative for pain and visual disturbance. Respiratory: Negative for cough and shortness of breath. Cardiovascular: Negative for chest pain and palpitations. Gastrointestinal: Negative for abdominal pain and vomiting. Genitourinary: Negative for dysuria and hematuria. Musculoskeletal: Positive for myalgias. Negative for arthralgias and back pain. Skin: Negative for color change and rash. Neurological: Positive for headaches. Negative for seizures and syncope. All other systems reviewed and are negative. PE: BP (!) 142/96 (BP Location: Right Arm, BP Position: Sitting, BP Cuff Size: Large) Pulse 80 Temp97.4 ??F (36.3 ??C) (Temporal) Resp 18 LMP 12/12/2023 SpO2 99% Physical Exam Vitals and nursing note reviewed. Constitutional: Appearance: Normal appearance. She is normal weight. HENT: Right Ear: Tympanic membrane, ear canal and external ear normal. Left Ear: Tympanic membrane, ear canal and external ear normal. Nose: Nose normal. Mouth/Throat: Mouth: Mucous membranes are moist. Pharynx: Oropharynx is clear. Eyes: Conjunctiva/sclera: Conjunctivae normal. Cardiovascular: Rate and Rhythm: Normal rate and regular rhythm. Pulses: Normal pulses. Heart sounds: Normal heart sounds. Pulmonary: Effort: Pulmonary effort is normal. No respiratory distress. Breath sounds: Normal breath sounds. Musculoskeletal: Cervical back: Neck supple. Lymphadenopathy: Cervical: No cervical adenopathy. Skin: General: Skin is warm and dry. Neurological: General: No focal deficit present. Mental Status: She is alert and oriented to person, place, and time. Mental status is at baseline. ASSESSMENT/PLAN: Diagnoses and all orders for this visit: Other migraine without status migrainosus, intractable - Discontinue: ketorolac (TORADOL) injection 30 mg - ketorolac (TORADOL) injection 30 mg Other orders - metoprolol Succinate (TOPROL-XL) 100 MG TABLET SR 24 HR; Take 100 mg by mouth daily. - sertraline (Zoloft) 50 MG Tablet; Take 50 mg by mouth daily. - esomeprazole (NexIUM) 20 MG CAPSULE DELAYED RELEASE; Take 20 mg by mouth daily. Patient Instructions Continue with excedrin as discussed per package directions Discussed red flag signs of when to seek emergency medical care. If symptoms persist follow up with pcp Chief complaint and all history documented by ancillary staff were reviewed and verified, with additions or corrections, as appropriate. * Jay Armando - 05/07/2024 9:55 AM CDT Per Aura Torre APRN, 30 mg toradol administered into pt right ventrogluteal. Pt tolerated well. documented in this encounter Plan of Treatment Not on file documented as of this encounter Visit Diagnoses Diagnosis Other migraine without status migrainosus, intractable- Primary documented in this encounter Administered Medications Inactive Administered Medications - up to 3 most recent administrations Medication Order MAR Action Action Date Dose Rate Site ketorolac (TORADOL) injection 30 mg 30 mg, Intramuscular, ONCE, 1 dose, On Mon05/07/24 at 1100, Doses over 30 mg should not be given intravenouslyIndications :Other migraine without status migrainosus, intractable Given 05/07/2024 10:32 AM CDT 30 mg Right Ventrogluteal documented in this encounter Care Teams Manager Of Recruiting Relationship Specialty Start Date End Date Albert Ruby MD [address] [address] PCP - General Family Medicine 12/26/23 documented as of this encounter
--- OUTSIDE RECORDS SUMMARY | 2024-08-27 04:51 | XMS_ITS | Encounter Summary ---
Author Organization [facility] Care Team Providers Care Squash Centre Manager Name Role Phone Unavailable Primary Care Provider Unavailabl e Encounter Details Date Type Department Care Team (Latest Contact Info) Description 06/27/2015 10:49 AM CDT - 06/27/2015 11:59 PM CDT Hospital En[facility] [place] [address] [place] [address] Pain in right ankle; Other specified retained foreign body fragments Social History Tobacco Use Types Packs/Day Years Used Date Smoking Tobacco: Never Assessed Comments Unknown Sex and Gender Information Value Date Recorded Sex Assigned at Not on file Legal Sex Female 5:31 AM EXPORT PACKER Gender Identity Not on file Sexual Orientation Not on file documented as of this encounter Plan of Treatment Not on file documented as of this encounter Procedures Procedure Name Priority Date/Time Associated Diagnosis Comments XR ANKLE 2 VW Routine 06/27/2015 10:40 AM CDT documented in this encounter Results * XR Ankle 2 VW (06/27/2015 10:40 AM CDT) Anatomical Region Laterality Modality N/A Radiographic Stacey ging 06/27/2015 10:4 0 AM CDT Narrative 06/27/2015 1:19 PM CDT ELKE PEACOCK M.D. GLENDY RIVERA M.D. FINAL REPORT The radiology attending physician has personally reviewed this study, and has reviewed and/or edited this written report and agrees with it. ACC# ??Date Time ??Exam [id number] Jun 27, 2015 10:40:00 [id number] ANKLE 2 VIEWS UNILATERAL R EXAMINATION: ?? Right ankle 2 views dated 06/27/2015 HISTORY: Ankle pain FINDINGS: Two weight-bearing views of the right ankle are submitted without comparison. Small metallic densities are present in the lateral ankle anterior to the fibula, unchanged. No fractures or dislocation is identified. The ankle mortise is intact. The joint spaces appear normal. IMPRESSION: ?? Multiple tiny radiopaque foreign bodies in the lateral ankle, unchanged. Requested By: EDUARDO THOMAS M.D. Dictated By: ?? GLENDY RIVERA M.D. ??on Jun 27 2015 12:16P This document has been electronically signed by: ELKE PEACOCK M.D. on Jun 27 2015 ??1:19P Procedure Note Provider, MD Chelly - 01/14/2017 Dougie HART M.D. FINAL REPORT The radiology attending physician has personally reviewed this study, and has reviewed and/or edited this written report and agrees with it. ACC# Date Time Exam [id number] Jun 27, 2015 10:40:00 [id number] ANKLE 2 VIEWS UNILATERAL R EXAMINATION: Right ankle 2 views dated 06/27/2015 HISTORY: Ankle pain FINDINGS: Two weight-bearing views of the right ankle are submitted without comparison. Small metallic densities are present in the lateral ankle anterior to the fibula, unchanged. No fractures or dislocation is identified. The ankle mortise is intact. The joint spaces appear normal. IMPRESSION: Multiple tiny radiopaque foreign bodies in the lateral ankle,unchanged. Requested By: EDUARDO THOMAS M.D. Dictated By: GLENDY RIVERA M.D. on Jun 27 2015 12:16P This document has been electronically signed by: ELKE PEACOCK M.D. on Jun 27 2015 1:19P Historical Provider MD DAVID XR PROCEDURES Final R esult documented in this encounter Visit Diagnoses Diagnosis Pain in right ankle Other specified retained foreign body fragments documented in this encounter
--- OUTSIDE RECORDS SUMMARY | 2024-08-27 04:51 | XMS_ITS | Encounter Summary ---
Author Organization [facility] Address [address] [place] [address] Phone Care Team Providers Care Rides Supervisor Name Role Phone Albert Ruby MD Primary Care Provider [phone] Reason for Visit * Reason Comments Cough Encounter Details Date Type Department Care Team (Latest Contact Info) Description 06/06/2024 12:25 PM CDT Urgent Care Visit [facility] [address] [place] [address] Aura Torre, JASPER, MAC ARTIST [address] [place] [address] Viral upper respiratory tract infection (Primary Dx); [...] CDT Temperature 36.6 ??C (97.9 ??F) 06/06/2024 12:17 PM C DT Respiratory Rate 20 06/06/2024 12:17 PM CDT Oxygen Saturation 97% 06/06/2024 12:17 PM CDT Inhaled Oxygen Concentration - - Weight - - Height - - Body Mass Index - - documented in this encounter Patient Instructions * Patient Instructions* Aura Torre APRN, CNP - 06/06/2024 12:25 PM CDT Symptoms are most likely caused from a virus. Antibiotics are not used to treat viruses. Viruses can take up to 7-14 to resolve. Conservative care is recommended at this time: Rest as needed Tylenol or ibuprofen as needed for low grade fevers or body aches. Do not exceed the recommended daily dosage as noted on the package/bottle. Increase fluid intake: this can include water, tea, Gatorade, or Pedialyte. Avoid milk and juice asthese may increase loose stools. Over the counter cough Supressant may be used as may cough drops and throat lozenges. Avoid any over the counter cold medication with a decongestant if you have high blood pressure. If in doubt, ask the pharmacist for help. Cool mist humidifier at night in the bedroom will help with cough and congestion. Follow up with PCP if no improvement in the symptoms, or symptoms worsen. * Attachments The following attachments cannot be sent through Care Everywhere. * Viral Respiratory Infection Dgkz-Sg-Wzcp (Latvian) documented in this encounter Progress Notes * Jay Armando - 06/06/2024 12:25 PM CDT Laura complains of Cough, headache, and congestion. PT states symptoms started yesterday and have worsened since onset. 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 Pt has nottaken anything otc for symptoms. Pt denies fever, sob, and vomiting. Pt has asthma. Cough This is a new problem. The problem has been gradually worsening. The problem occurs constantly. Associated symptoms include headaches. She has tried nothing for the symptoms. The treatment provided no relief. Her past medical history is significant for asthma. Today's Review of Systems Neurological: Positive for headaches. * Aura Torre, INTERNIST, MAC ARTIST - 06/06/2024 12:25 PM CDT HPI: Laura Finley is a 23 y.o. female in the [facility] today for body aches and congestion. She denies fever and chills. She has had some ear pain but denies sore throat. She has had headachesbut denies a cough. She states she works in a [employer] and 4 out of the five clients have covid. Symptoms started yesterday Severity of symptoms is moderate Symptoms have Worsened Patient is currently taking over the counter tylenol for the symptoms. Smoker: No No pertinent Past, family, or social history was noted There is no problem list on file for this patient. ROS: Review of Systems Constitutional: Negative for chills and fever. HENT: Positive for congestion, ear pain and rhinorrhea. Negative for sore throat. Eyes: Negative for pain and visual disturbance. Respiratory: Negative for cough and shortness of breath. Cardiovascular: Negative for chest pain and palpitations. Gastrointestinal: Negative for abdominal pain and vomiting. Genitourinary: Negative for dysuria and hematuria. Musculoskeletal: Negative for arthralgias and back pain. Skin: Negative for color change and rash. Neurological: Positive for headaches. Negative for seizures and syncope. All other systems reviewed and are negative. PE: BP (!) 138/94 (BP Location: Right Arm, BP Position: Sitting, BP Cuff Size: Large) Pulse 99 Temp97.9 ??F (36.6 ??C) (Temporal) Resp 20 LMP 12/12/2023 SpO2 97% Physical Exam Vitals and nursing note reviewed. [...] and dry. Neurological: Mental Status: She is alert. ASSESSMENT/PLAN: Diagnoses and all orders for this visit: Viral upper respiratory tract infection Acute cough - POC SARS-COV-2 BY MOLECULAR Patient Instructions Symptoms are most likely caused from a virus. Antibiotics are not used to treat viruses. Viruses can take up to 7-14 to resolve. Conservative care is recommended at this time: Rest as needed Tylenol or ibuprofen as needed for low grade fevers or body aches. Do not exceed the recommended daily dosage as noted on the package/bottle. Increase fluid intake: this can include water, tea, Gatorade, or Pedialyte. Avoid milk and juice asthese may increase loose stools. Over the counter cough Supressant may be used as may cough drops and throat lozenges. Avoid any over the counter cold medication with a decongestant if you have high blood pressure. If in doubt, ask the pharmacist for help. Cool mist humidifier at night in the bedroom will help with cough and congestion. Follow up with PCP if no improvement in the symptoms, or symptoms worsen. Chief complaint and all history documented by ancillary staff were reviewed and verified, with additions or corrections, as appropriate. documented in this encounter Plan of Treatment Not on file documented as of this encounter Procedures Procedure Name Priority Date/Time Associated Diagnosis Comments POC SARS-COV-2 BY MOLECULAR Routine 06/06/2024 12:22 PM CDT Acute cough documented in this encounter Results * POC SARS-COV-2 BY MOLECULAR (06/06/2024 12:22 PM CDT) SARSCOV2 Negative Negative, INVALID PROCEDURE CONTROL Valid 06/06/2024 12:2 2 PM CDT Aura Torre APRN, CNP POINT OF CARE TEST ING (MANUAL) Final Result documented in this encounter Visit Diagnoses Diagnosis Viral upper respiratory tract infection- Primary Acute upper respiratory infections of unspecified site Acute cough documented in this encounter Additional Health Concerns Infection Onset Date Last Indicated Resolved Time COVID - 19 06/06/2024 06/06/2024 06/06/2024 12:3 7 PM CDT documented as of this encounter Care Teams Rides Supervisor Relationship Specialty Start Date End Date Albert Ruby MD [address] [address] PCP - General Family Medicine 12/26/23 documented as of this encounter
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
--- OUTSIDE RECORDS SUMMARY | 2024-08-27 06:54 | XMS_ITS | Encounter Summary ---
Author Organization [facility] Address [address] [place] [address]. [place] [address] Care Team Providers Care Door Builder Name Role Phone Albert Ruby MD Primary Care Provider Tremayne Shi MD Unavailable [phone] Encounter Details Date Type Department Care Team [...] documented as of this encounter Care Teams Door Builder Relationship Specialty Start Date End Date Albert Ruby MD [address] [place] [address] [address] [place] [address] PCP - General FAMILY PRACTICE 05/16/18 Tremayne Shi MD [facility]. [address] [place] [address] EP Senior Dentist CARDIOVASCULAR DISEASE 08/15/18 documented as of this encounter
--- OUTSIDE RECORDS SUMMARY | 2024-08-27 06:54 | XMS_ITS | Encounter Summary ---
Author Organization [facility] Address [address] [place] [address]. [place] [address] Care Team Providers Care Senior Care Provider Name Role Phone Albert Ruby MD Primary Care Provider [phone] Tremayne Shi MD Unavailable [phone] Encounter Details Date Type Department Care Team [...] as of this encounter Care Teams Senior Care Provider Relationship Specialty Start Date End Date Albert Ruby MD [address] [place] [address] PCP - General FAMILY PRACTICE 05/16/18 Tremayne Shi MD [address] [facility] [address] [place], [place] [address] EP Senior Oracle Dba CARDIOVASCULAR DISEASE 08/15/18 documented as of this encounter
--- OUTSIDE RECORDS SUMMARY | 2024-08-27 06:54 | XMS_ITS | Encounter Summary ---
Author Organization [facility] Address [address] [place] [address]. [place], [place] [address] [place] [address] Care Team Providers Care Top Lift And Automatic Window Repairer Name Role Phone Albert Ruby MD Primary Care Provider [phone] Tremayne Shi MD Unavailable [phone] Encounter Details Date Type Department Care Team [...] documented as of this encounter Care Teams Top Lift And Automatic Window Repairer Relationship Specialty Start Date End Date Albert Ruby MD [address] [facility] [address] [place] [address] PCP - General FAMILY PRACTICE 05/16/18 Tremayne Shi MD [address] [place] [address] EP Telecommunications Sales Representative CARDIOVASCULAR DISEASE 08/15/18 documented as of this encounter
--- OUTSIDE RECORDS SUMMARY | 2024-08-27 06:54 | XMS_ITS | Encounter Summary ---
Author Organization [facility] Address [address] [place] [address]. [place], [place] [address] [place] [address] Care Team Providers Care Surgical Assistant Name Role Phone Albert Ruby MD Primary Care Provider [phone] Tremayne Shi MD Unavailable [phone] Reason for Visit * Reason Onset Date Comments Refill Request 04/06/2021 metoprolol Encounter Details Date Type Department Care Team (Late st Contact Info) Description 04/06/2021 Telephone [facility] [facility] THREE [facility], [address] [address] Raven Daley CMA Refill Request [...] medication. The hospitalist told me tocontact my pantograph machine operator to see if he would like me to switch medications. Thank you. documented in this encounter Plan of Treatment Not on file documented as of this encounter Visit Diagnoses Not on filedocumented in this encounter Additional Health Concerns Assessment Noted Time PHQ-9 Depression Total Score: 10 11/13/ 021 8:11 AM CD TECHNICIAN documented as of this encounter Care Teams Surgical Assistant Relationship Specialty Start Date End Date Albert Ruby MD [address] [place] [address] [address] [place] [address] PCP - General FAMILY PRACTICE 05/16/18 [facility] [address] [facility] [place] [address] EP Maintenance Shop Laborer CARDIOVASCULAR DISEASE 08/15/18 documented as of this encounter
--- OUTSIDE RECORDS SUMMARY | 2024-08-27 06:54 | XMS_ITS | Encounter Summary ---
Author Organization [facility] Address [address] [place] [address]. [place] [address] [place] [address] Care Team Providers Care De Icer Kit Assembler Name Role Phone Albert Ruby MD Primary Care Provider [phone] Tremayne Shi MD Unavailable [phone] Reason for Visit * Reason Comments Anxiety wanting to switch to something else, Venlafaxine not orking Encounter Details Date Type Department Care Team (Late st Contact Info) Description 06/17/2021 1:00 PM CDT Office Visit [facility] Family and Sports Medicine - [place] [address] [place] [address] Albert Ruby MD [address] [facility] [address] [place] [address] Anxiety (wanting to switch to something else, [...] Gatherings with Friends and Family: ??? Attends Orthodoxy Services: ??? Active Member of Clubs or [...] documented as of this encounter Care Teams De Icer Kit Assembler Relationship Specialty Start Date End Date Albert Ruby MD [address] [place] [address] [address] [place] [address] PCP - General FAMILY PRACTICE 05/16/18 Tremayne Shi MD [facility]. [address] [place] [address] EP Solution Developer CARDIOVASCULAR DISEASE 08/15/18 documented as of this encounter
--- OUTSIDE RECORDS SUMMARY | 2024-08-27 06:54 | XMS_ITS | Encounter Summary ---
Author Organization [facility] Address [facility] [facility] [place] [address] [place] [address] Care Team Providers Care Business Operations Analyst Name Role Phone Albert Ruby MD Primary Care Provider [phone] Tremayne Shi MD Unavailable [phone] Reason for Referral * Consultation/Treatment (Routine) - Closed Specialty Diagnoses / Procedures Referred By Ines borja Referred To Contact Psychiatry Diagnoses Anxiety and depression Albert Ruby MD [address] [place] [address] Phone: tel: fax: Referral ID Status Reason Start Date Expiration Date V isits Requested Visits Authorized [id number] Closed Specialty Services 02/16/2021 03/18/2022 99 99 Scheduling Instructions I am requesting a referral to a psychiatrist. The psychiatrist is Janett Gonzalez MD [address] [place] [address] Encounter Details Date Type Department Care Team (Late st Contact Info) Description 02/16/2021 Orders Only [facility] Medical Group Family and Sports Medicine - [place] [address] [facility] [place] [address] Albert Ruby MD [address] [facility] [address] [place] [address] Social History Tobacco Use Types Packs/Day Years [...] Depression Total Score: 10 021 8:11 AM CUBING MACHINE TENDER documented as of this encounter Care Teams Business Operations Analyst Relationship Specialty Start Date End Date Albert Ruby MD [address] [place] [address] [address] [place] [address] PCP - General FAMILY PRACTICE 05/16/18 T[facility] MD [facility] [address] [place] [address] EP Waterproofing Mixer CARDIOVASCULAR DISEASE 08/15/18 documented as of this encounter
--- OUTSIDE RECORDS SUMMARY | 2024-08-27 06:54 | XMS_ITS | Encounter Summary ---
Author Organization [facility] Address [address] [place] [address]. [place], [place] [address] [place] [address] Care Team Providers Care Electric Blanket Packer Name Role Phone Albert Ruby MD Primary Care Provider [phone] Tremayne Shi MD Unavailable [phone] Encounter Details Date Type Department Care Team [...] documented as of this encounter Care Teams Electric Blanket Packer Relationship Specialty Start Date End Date Albert Ruby MD [address] [facility] [address] [place] [address] PCP - General FAMILY PRACTICE 05/16/18 Tremayne Shi MD [address] [place] [address] EP Family Centered Specialist CARDIOVASCULAR DISEASE 08/15/18 documented as of this encounter
--- OUTSIDE RECORDS SUMMARY | 2024-08-27 06:54 | XMS_ITS | Encounter Summary ---
Author Organization [facility] Address [address] [place] [address]. [place] [address] [place] [address] Care Team Providers Care Shore Hand Dredge Or Barge Name Role Phone Albert Ruby MD Primary Care Provider [phone] Tremayne Shi MD Unavailable [phone] Reason for Visit * Reason Onset Date Comments Results 11/17/2023 Encounter Details Date Type Department Care Team (Late st Contact Info) Description 11/17/2023 Telephone [facility] Medical Group Multispecialty Care - [facility] [address] [facility] [place] [address] Velasquez Shipman, [address] [facility] [address] [place] [address] Results Social History Tobacco Use Types Packs/Day [...] 9:56 AM CST Patient viewed results via [employer] ----- Message from Velasquez Shipman DO sent at 11/16/2023 1:55 PM DOORSHAKER ----- H. pylori negative. Biopsies negative for microscopic colitis. SHAKER SHAKER documented in this encounter Plan of Treatment Not on file documented as of this encounter Visit Diagnoses Not on filedocumented in this encounter Additional Health Concerns Assessment Noted Time PHQ-9 Depression Total Score: 4 07/07/20 23 8:53 AM CDT documented as of this encounter Care Teams Shore Hand Dredge Or Barge Relationship Specialty Start Date End Date Albert Ruby MD [address] [place] [address] [address] [place] [address] PCP - General FAMILY PRACTICE 05/16/18 Tremayne Shi MD [facility]. [address] [place] [address] EP Round Kiln Drawer CARDIOVASCULAR DISEASE 08/15/18 documented as of this encounter
--- OUTSIDE RECORDS SUMMARY | 2024-08-27 06:54 | XMS_ITS | Clinical Summary ---
Author Organization [facility] Address [address] [place] [address]. [place], [place] [address] [place] [address] Care Team Providers Care Emblem Maker Name Role Phone Albert Ruby MD Primary Care Provider [phone] Tremayne Shi MD Unavailable [phone] Allergies Active Allergy Reactions Criticality Noted Date [...] injection (PEN)Indication s:Obesity, diabetes, and hypertension syndrome ([facility]),Predia betes,Morbid obesity with BMI of 50.0-59.9, adult ([facility]) INJECT 0.25MG SUBCUTANEOUSLY EVERY 7 DAYS 3 [...] HEPATITIS C AB NON-REACT CARRI NON-REACT CARRI [facility] Comment: HCV antibody was non-reactive. There is no laboratory evidence of HCV infection. In most cases, no further action is required. However, if recent HCV exposure is suspected, a test for HCV RNA (test code 37790) is suggested. For additional information please refer to http://education.Socialware/faq/UHK06b5 (This link is being provided for informational/ educational purposes only.) 04/25/2024 1:09 PM CDT 04/25/2024 1:14 PM CDT Narrative [facility] - [facility] - 04/26/2024 11:32 AM CDT FASTING:YES FASTING: YES Resulting Agency Comment Performing Organization Information: ?Site ID: [place] ?Name: [facility] ?Address: [address] [place] [address] ?Director: Yuli Li MD Albert Ruby MD LABORATORY Final Result [email or web address] [email or web address] [address] [place] [address], * (ABNORMAL) HEMOGLOBIN, GLYCOSYLATED (04/25/2024 1:09 PM CDT) HGB A1C 5.7(H) <5.7 % of total Hgb [facility] [place] Comment: For someone without known diabetes, [...] change in test platforms from the Telles Fusion Analyst to the Niurka kulwinder c503 may have shifted HbA1c results compared to historical results. Based on laboratory validation testing conducted at [facility], the Niurka platform relative to the Telles [...] Comment Performing Organization Information: ?Site ID: ?Name: [facility] ?Address: [address] [place] [address] ?Director: Yuli Li Albert Ruby MD LABORATORY Final Result [email or web address] - [facility] [address] [address], * (ABNORMAL) LIPID PANEL (04/25/2024 1:09 PM CDT) CHOLESTEROL 104 <200 mg/dL [facility] HDL 43(L) > OR = 50 mg/dL [facility] TRIGLYCERIDES 67 <150 mg/dL [facility] LDL (CALCULATED) 47 mg/dL (calc) [facility] Comment: Reference range: <100 Desirable range <100 mg/dL for primary prevention; ?? <70 mg/dL for patients with CHD or diabetic patients with > or = 2 CHD risk factors. LDL-C is now calculated using the Kevin-Justice calculation, which is a validated novel method providing better accuracy than the Friedewald equation in the estimation of LDL-C. Kevin SS et al. MAAN. 2013;310(19): 1766-1085 (http://education.Siamosoci/faq/PYU222) CHOL/HDL RATIO 2.4 <5.0 (calc) [facility] NON HDL CHOLESTEROL 61 <130 mg/dL (calc) [facility] Comment: For patients with diabetes plus 1 major ASCVD risk factor, treating to a non-HDL-C goal of <100 mg/dL (LDL-C of <70 mg/dL) is considered a therapeutic option. 04/25/2024 1:09 PM CDT 04/25/2024 1:14 PM CDT Narrative [facility] - 04/26/2024 11:32 AM CDT FASTING:YES FASTING: YES Resulting Agency Comment Performing Organization Information: ?Site ID: [place] ?Name: [facility] ?Address: [address] [place] [address] ?Director: Yuli Li MD us Albert Ruby MD LABORATORY Final Result [facility] [address] [address], from Last 3 Months or Most Recently Relevant to Health Maintenance Insurance [email or web address] Care Teams Emblem Maker Relationship Specialty Start Date End Date Albert Ruby MD [address] [place] [address] [address] [place] [address] PCP - General FAMILY PRACTICE 05/16/18 Tremayne Shi MD [facility]. [address] [place] [address] EP Knocker Out CARDIOVASCULAR DISEASE 08/15/18
--- OUTSIDE RECORDS SUMMARY | 2024-08-27 06:54 | XMS_ITS | Encounter Summary ---
Author Organization [facility] Address [address] [place] [address]. [place], [place] [address] [place] [address] Care Team Providers Care Hitting Coach Name Role Phone Albert Ruby MD Primary Care Provider [phone] Tremayne Shi MD Unavailable [phone] Encounter Details Date Type Department Care Team [...] documented as of this encounter Care Teams Hitting Coach Relationship Specialty Start Date End Date Albert Ruby MD [address] [facility] 200 [place] [address] PCP - General FAMILY PRACTICE 05/16/18 Tremayen Shi MD [address] [place] [address] EP Tower Crane Operator CARDIOVASCULAR DISEASE 08/15/18 documented as of this encounter
--- OUTSIDE RECORDS SUMMARY | 2024-08-27 06:54 | XMS_ITS | Encounter Summary ---
Author Organization [facility] Address [address] [place] [address]. [place], [place] [address] [place] [address] Care Team Providers Care Lockstitch Collar Setter Name Role Phone Albert Ruby MD Primary Care Provider [phone] Tremayne Shi MD Unavailable [phone] Reason for Visit * Reason Comments Follow Up Bp has been elevated Encounter Details Date Type Department Care Team (Late st Contact Info) Description 05/01/2024 9:20 AM CDT Office Visit [facility] Medical Group Family and Sports Medicine - [place] [address] [place] [address] Albert Ruby MD [address] [address] Follow Up (Bp has been elevated) Social [...] were not included. [facility]ty [facility] [place] [facility] [place] Encounter Date: 05/01/2024 Reason for Visit: Daniel is an 23-year-old female here for Follow Up (Bp has been elevated) History of Present Illness: SUBJECTIVE: Daniel [place] is a 23-year-old female who is here for a f/u. Over all doing well, takes medications regularly, no side effects. Patient Care Team: Albert Ruby MD as PCP - General (FAMILY PRACTICE) Tremayne Shi MD as EP Termite Exterminator Helper (CARDIOVASCULAR DISEASE) Health Maintenance Topic Date Due [...] 06/21/2023 TSH 1.082 11/13/2020 TSH 1.870 05/24/2019 [id number] 126 04/25/2024 FT4 1.4 04/25/2024 FT4 1.09 [...] tablet 3. Obesity, diabetes, and hypertension syndrome ([facility]) E11.69 METABOLIC DISEASE semaglutide (OZEMPIC) 2 MG/3ML injection (PEN) E66.9 E11.59 I15.2 4. Prediabetes R73.03 PREDIABETES semaglutide (OZEMPIC) 2 MG/3ML injection (PEN) 5. CRP elevated R79.82 C-REACTIVE PROTEIN ABOVE REFERENCE RANGE 6. Morbid obesity with BMI of 50.0-59.9, adult ([facility] HHS/HCC) E66.01 BODY MASS INDEX 40+ - SEVERELY OBESE semaglutide (OZEMPIC) 2 MG/3ML injection (PEN) Z68.43 Recommendations and Plan: 1. Low folic acid See above for labs, imaging and medications orders. After carefull analysis of presenting symptoms,exam results and co morbidities, we decided on the current plan of care per [facility]. I Discussed Medications and/or therapeutic measures in details. Explained the rational of diagnosis and treatment. Patient/clinical manager home care understands and agrees with the treatment plan. - folic acid (FOLVITE) 1 MG tablet; Take 1 tablet (1 mg total) by mouth daily. Dispense: 90 tablet;Refill: 3 2. Obesity, diabetes, and hypertension syndrome ([facility]) 3. Prediabetes Daniel [place] is a 23-year-old [...] Yes. Insulin: No. Change in medication per [facility] if applicable. They should report to [...] Morbid obesity with BMI of 50.0-59.9, adult ([facility]) Pt has elevated weight with BMI Body [...] meat. . Will get labs as per [employer]. See orders for this visit as documented [...] folic acid Obesity, diabetes, and hypertension syndrome ([facility]) Type II or unspecified type diabetes mellitus without mention of complication, not stated as uncontrolled Prediabetes Other abnormal glucose CRP elevated Elevated C-reactive protein (CRP) Morbid obesity with BMI of 50.0-59.9, adult ([facility]) Morbid obesity documented in this encounter Additional Health Concerns Assessment Noted Time PHQ-9 Depression Total Score: 3 05/01/20 9:25 AM CDT documented as of this encounter Care Teams Lockstitch Collar Setter Relationship Specialty Start Date End Date Albert Ruby MD [address] [place] [address] [address] [facility], [place] [address] PCP - General FAMILY PRACTICE 05/16/18 Tremayne Shi MD [facility]. [address] [place], [place] [address] EP Termite Exterminator Helper CARDIOVASCULAR DISEASE 08/15/18 documented as of this encounter
--- OUTSIDE RECORDS SUMMARY | 2024-08-27 06:54 | XMS_ITS | Encounter Summary ---
Author Organization [facility] Address [address] [place] [address]. [place], [place] [address] [place] [address] Care Team Providers Care Farm Butcher Name Role Phone Albert Ruby MD Primary Care Provider [phone] Tremayne Shi MD Unavailable [phone] Reason for Visit * Reason Onset Date Comments Refill Request 04/07/2021 metoprolol Encounter Details Date Type Department Care Team (Late st Contact Info) Description 04/07/2021 Telephone [facility] THREE [facility], [address] [address] Destiny Roach RN Refill Request [...] Depression Total Score: 10 021 8:11 AM DRY PRESS OPERATOR documented as of this encounter Care Teams Farm Butcher Relationship Specialty Start Date End Date Albert Ruby MD [address] [facility] [address] [place] [address] PCP - General FAMILY PRACTICE 05/16/18 Tremayne Shi MD [facility] [address] [place], [place] [address] EP Pet Caretaker CARDIOVASCULAR DISEASE 08/15/18 documented as of this encounter
--- OUTSIDE RECORDS SUMMARY | 2024-08-27 06:54 | XMS_ITS | Encounter Summary ---
Author Organization [facility] Address [address] [place] [address]. [place], [place] [address] [place] [address] Care Team Providers Care Manager Print Name Role Phone Albert Ruby MD Primary Care Provider [phone] Tremayne Shi MD Unavailable Reason for Referral * Consultation (Routine) - Pending Review Specialty Diagnoses / Procedures Referred By Ines borja Referred To Contact OTOLARYNGOLOGY Diagnoses Snoring Procedures OFFICE/OUTPATIENT NEW LOW MDM 30-44 MINUTES OFFICE/OUTPT VISIT,NEW,LEVL IV OFFICE/OUTPT VISIT,NEW,LEVL V OFFICE/OUTPT VISIT,EST,LEVL III OFFICE/OUTPT VISIT,EST,LEVL IV OFFICE/OUTPT VISIT,EST,LEVL V Albert Ruby MD [address] [place] [address] Phone: tel: fax: [facility], [address] [address] Phone: tel: fax: Referral ID Status Reason Start Date Expiration Date V isits Requested Visits Authorized [id number] Pending Review 11/15/2023 12/14/2024 99 99 Scheduling Instructions Evaluate for sleep study RAL PREARRANGEMENT COUNSELOR Reason for Visit * Reason Onset Date Comments Referral 11/15/2023 Encounter Details Date Type Department Care Team (Late st Contact Info) Description 11/15/2023 MyChart Message Enc [facility] Medical Group Family and Sports Medicine - [place] [address] [place] [address] Albert Ruby MD [address] [facility] N[address] [place] [address] Sleep study Social History Tobacco Use Types [...] on: 11/15/2023 01:05 PM Modules accepted: Orders RAL PREARRANGEMENT COUNSELOR * ANDREW Mccarthy - 11/15/2023 12:59 PM CSTFrom: Laura [place] To: Dr. Albert Ruby Sent: 11/15/2023 12:44 PM FUNERAL PREARRANGEMENT COUNSELOR Subject: Sleep study Hello, I had an egd and they stated I had significant bouts of apnea and suggested I get a sleep study referral. RAL PREARRANGEMENT COUNSELOR documented in this encounter Plan of Treatment [...] as of this encounter Care Teams Manager Print Relationship Specialty Start Date End Date Albert Ruby MD [address] [facility] N[address] [place] [address] PCP - General FAMILY PRACTICE 05/16/18 Tremayne Shi MD [facility]. [address] [place], [place] [address] EP Personnel Psychologist CARDIOVASCULAR DISEASE 08/15/18 documented as of this encounter
--- OUTSIDE RECORDS SUMMARY | 2024-08-27 06:54 | XMS_ITS | Encounter Summary ---
Author Organization [facility] Address [address] [place] [address]. [place], [place] [address] [place] [address] Care Team Providers Care Surface Logging Systems Logger Name Role Phone Albert Ruby MD Primary Care Provider [phone] Tremayne Shi MD Unavailable [phone] Encounter Details Date Type Department Care Team (Late st Contact Info) Description 10/03/2022 MyCSCHEDitt Message Enc [facility] Medical Group Family and Sports Medicine - [place] [address] [place] [address] Albert Ruby MD [address] [address] Depression Medications Social History Tobacco Use Types [...] documented as of this encounter Care Teams Surface Logging Systems Logger Relationship Specialty Start Date End Date Albert Ruby MD [address] [facility] N[address] [place] [address] PCP - General FAMILY PRACTICE 05/16/18 rTemayne Shi MD [facility] [address]nam[address] [facility] [address] EP Product Management Internship CARDIOVASCULAR DISEASE 08/15/18 documented as of this encounter
--- OUTSIDE RECORDS SUMMARY | 2024-08-27 06:54 | XMS_ITS | Encounter Summary ---
Author Organization [facility] Address [address] [place] [address]. [place], [place] [address] [place] [address] Care Team Providers Care Press Supervisor Name Role Phone Albert Ruby MD Primary Care Provider [phone] Tremayne Shi MD Unavailable [phone] Reason for Referral * Consultation (Routine) - Closed Specialty Diagnoses / Procedures Referred By Ines borja Referred To Contact GASTROENTEROLOGY Diagnoses Abdominal pain Procedures OFFICE/OUTPT VISIT,NEW,LEVL III OFFICE/OUTPT VISIT,NEW,LEVL IV OFFICE/OUTPT VISIT,NEW,LEVL V OFFICE/OUTPT VISIT,EST,LEVL III OFFICE/OUTPT VISIT,EST,LEVL IV OFFICE/OUTPT VISIT,EST,LEVL V Albert Ruby MD [address] [place] [address] [address] [place] [address] Phone: tel: fax: [facility] Medical Group Multispecialty Care - [facility] [address] [facility], [address] [place] [address] Phone: tel: fax: Referral ID Status Reason Start Date Expiration Date Visits Re quested Visits Authorized [id number] Closed 08/03/2022 09/03/2023 1 1 CONDUCTOR EQUIPMENT TECHNICIAN Encounter Details Date Type Department Care Team (Late st Contact Info) Description 08/03/2022 MyChart Message Enc [facility] Medical Group Family and Sports Medicine - [place] [address] [place] [address] Albert Ruby MD [address] [place] [address] Referral Social History Tobacco Use Types Packs/Day [...] Dr. Albert Ruby Sent: 08/03/2022 12:09 PM SEMICONDUCTOR EQUIPMENT TECHNICIAN Subject: Referral I am requesting a referral to [facility] for my abdominal pain. Thank you. CONDUCTOR EQUIPMENT TECHNICIAN documented in this encounter Plan of [...] documented as of this encounter Care Teams Press Supervisor Relationship Specialty Start Date End Date Albert Ruby MD [address] [facility] 200 [place] [address] PCP - General FAMILY PRACTICE 05/16/18 Tremayne Shi MD [address] [facility] [address] [place] [address] EP Special Delivery Mail Carrier CARDIOVASCULAR DISEASE 08/15/18 documented as of this encounter
--- OUTSIDE RECORDS SUMMARY | 2024-08-27 06:54 | XMS_ITS | Encounter Summary ---
Author Organization [facility] Address [address] [place] [address]. [place], [place] [address] [place] [address] Care Team Providers Care Gas Roller Operator Name Role Phone Albert Ruby MD Primary Care Provider [phone] Tremayne Shi MD Unavailable [phone] Encounter Details Date Type Department Care Team [...] documented as of this encounter Care Teams Gas Roller Operator Relationship Specialty Start Date End Date Albert Ruby MD [address] [facility] 200 [place] [address] PCP - General FAMILY PRACTICE 05/16/18 Tremayne Shi MD [address] [place] [address] EP Complaint Manager CARDIOVASCULAR DISEASE 08/15/18 documented as of this encounter
--- OUTSIDE RECORDS SUMMARY | 2024-08-27 06:54 | XMS_ITS | Encounter Summary ---
Author Organization [facility] Address [address] [place] [address]. [place], [place] [address] [place] [address] Care Team Providers Care Scheduling Assistant Name Role Phone Albert Ruby MD Primary Care Provider [phone] Tremayne Shi MD Unavailable [phone] Encounter Details Date Type Department Care Team (Late st Contact Info) Description 05/04/2021 MyCCascade Financial Technology Corpt Message Enc [facility] Medical Group Family and Sports Medicine - [place] [address] [place] [address] Albert Ruby MD [address] [address] RE: Question Social History Tobacco Use Types [...] Depression Total Score: 10 021 8:11 AM BELT WORKER documented as of this encounter Care Teams Scheduling Assistant Relationship Specialty Start Date End Date Albert Ruby MD [address] [facility] [address] [place] [address] PCP - General FAMILY PRACTICE 05/16/18 Tremayne Shi MD Three [facility] [address]nam[address] [place] [address] EP Messenger Copy CARDIOVASCULAR DISEASE 08/15/18 documented as of this encounter
--- OUTSIDE RECORDS SUMMARY | 2024-08-27 06:54 | XMS_ITS | Encounter Summary ---
Author Organization [facility] Address [address] [place] [address]. [place] [address] [place] [address] Care Team Providers Care Solar Sales Associate Name Role Phone Albert Brown MD Primary Care Provider [phone] Tremayne Shi MD Unavailable [phone] Reason for Visit * Reason Onset Date Comments Refill Request 05/24/2023 Encounter Details Date Type Department Care Team (Late st Contact Info) Description 05/24/2023 Telephone [facility] Medical Group Family and Sports Medicine - [place] [address] [place] [address] Albert Brown MD 670 [facility] 200 [place] [address] Refill Request Social History Tobacco Use Types [...] like this sent to the following pharmacy: [facility] [address] [place] [address] [address] [facility] 610 [facility] [address] The next office visit: Next visit with [...] documented as of this encounter Care Teams Solar Sales Associate Relationship Specialty Start Date End Date Albert Brown MD [address] [place] [address] [address] [place] [address] PCP - General FAMILY PRACTICE 05/16/18 Tremayne Shi MD [address] [place], [place] [address] EP Corn Husk Baler CARDIOVASCULAR DISEASE 08/15/18 documented as of this encounter
--- OUTSIDE RECORDS SUMMARY | 2024-08-27 06:54 | XMS_ITS | Encounter Summary ---
Author Organization [facility] Address [address] [place] [address]. [place], [place] [address] [place] [address] Care Team Providers Care Cold Roll Catcher Name Role Phone Albert Ruby MD Primary Care Provider [phone] Tremayne Shi MD Unavailable [phone] Reason for Referral * Imaging (Routine) - Closed Specialty Diagnoses / Procedures Referred By Contac t Referred To Contact RADIOLOGY Diagnoses RUQ pain Diarrhea, unspecified type LUQ pain Chronic GERD Procedures CT ABD W Marin Pepper NP [address] [address] Phone: tel: fax: Referral ID Status Reason Start Date Expiration Date Visits Re quested Visits Authorized [id number] Closed 10/05/2023 10/05/2024 1 1 Y OPERATOR Reason for Visit * Imaging (Routine) - Closed Specialty Diagnoses / Procedures Referred By Contac jonh Referred To Contact RADIOLOGY Diagnoses RUQ pain Diarrhea, unspecified type LUQ pain Chronic GERD Procedures CT ABD W Marin Pepper NP [address] [address] Phone: tel: fax: Referral ID Status Reason Start Date Expiration Date Visits Re quested Visits Authorized [id number] Closed 10/05/2023 10/05/2024 1 1 Encounter Details Date Type Department Care Team (Latest Contact Info) Description 10/16/2023 8:01 AM SPRAY OPERATOR - 10/16/2023 11:59 PM [facility] Hospital Encounter [facility] [address] [place] [address] Marin Araujo NP 3 [facility] [address] [place] [address] Discharge Disposition: Home or Self Care (Routine [...] ABD W CON Routine 10/16/2023 8:32 AM SPRAY OPERATOR RUQ pain Diarrhea, unspecified type LUQ pain Chronic GERD documented in this encounter Results * CT ABD W CON (10/16/2023 8:32 AM SPRAY OPERATOR) Anatomical Region Laterality Modality Abdomen Computed Tomogra phy 10/19/2023 9:29 AM SPRAY OPERATOR Impressions 10/19/2023 9:57 AM SPRAY OPERATOR =====IMPRESSION:===== 1. Small sliding hiatal hernia. 2. No acute or other significant localizing abdominal process/findings seen to provide a potential explanation for the patient's symptoms. Ordered By: MARIN ARAUJO Interpreted By: Michelle Sifuentes MD, 10/19/2023 9:29 AM Narrative 10/19/2023 9:57 AM SPRAY OPERATOR Exam: CT abdomen with contrast Exam Date/Time: [...] Mon10/16/23 at 0833 Given 10/16/2023 8:33 AM SPRAY OPERATOR 140 mLs Right Arm documented in this encounter Additional Health Concerns Assessment Noted Time PHQ-9 Depression Total Score: 4 07/07/20 8:53 AM CDT documented as of this encounter Care Teams Cold Roll Catcher Relationship Specialty Start Date End Date Albert Ruby MD [address] [facility] [address] [place], [place] [address] PCP - General FAMILY PRACTICE 05/16/18 Tremayne Shi MD [facility] [address] [facility], [place] [id number] EP Airport Driver CARDIOVASCULAR DISEASE 08/15/18 documented as of this encounter
--- OUTSIDE RECORDS SUMMARY | 2024-08-27 06:54 | XMS_ITS | Encounter Summary ---
Author Organization [facility] Address [address] [place] [address]. [place], [place] [address] [place], [place] [id number] Care Team Providers Care Milk Powder Grinder Name Role Phone Albert Ruby MD Primary Care Provider [phone] Tremayne Shi MD Unavailable [phone] Reason for Referral * Surgical (Routine) - Closed Specialty Diagnoses / Procedures Referred By Contanahy t Referred To Contact GENERAL SURGERY Diagnoses Obesity due to excess calories, unspecified classification, unspecified whether serious comorbidity present Procedures OFFICE/OUTPATIENT NEW LOW MDM 30-44 MINUTES OFFICE/OUTPT VISIT,NEW,LEVL IV OFFICE/OUTPT VISIT,NEW,LEVL V OFFICE/OUTPT VISIT,EST,LEVL III OFFICE/OUTPT VISIT,EST,LEVL IV OFFICE/OUTPT VISIT,EST,LEVL V Albert Ruby MD [address] [place] [address] Phone: tel: fax: Adolph Porter MD [address] [place] [address] [address] [place] [address] Phone: tel: fax: Referral ID Status Reason Start Date Expiration Date V isits Requested Visits Authorized [id number] Closed Specialty Services 11/07/2023 11/07/2024 100 100 Scheduling Instructions Adolph Porter MD [facility] ER PRESS TENDER Reason for Visit * Reason Onset Date Comments Referral 11/07/2023 Encounter Details Date Type Department Care Team (Late st Contact Info) Description 11/07/2023 MyChart Message Enc [facility] Medical Group Family and Sports Medicine - [place] [address] [place] [address] Albert Ruby MD [address] [facility] 200 [place] [address] Weight loss doctor referral request Social History [...] Dr. Albert Ruby Sent: 11/07/2023 2:20 PM RUBBER PRESS TENDER Subject: Weight loss doctor referral request I would like a referral to Adolph Porter MD [facility] weight loss doctor at [facility]. Thanks! ER PRESS TENDER documented in this encounter Plan of Treatment [...] documented as of this encounter Care Teams Milk Powder Grinder Relationship Specialty Start Date End Date Albert Ruby MD [address] [place] [address] 200 [facility] [place] [place] [address] PCP - General FAMILY PRACTICE 05/16/[address] [facility]. [facility] [address] [place] [address] EP Small Battery Plate Assembler CARDIOVASCULAR DISEASE 08/15/18 documented as of this encounter
--- OUTSIDE RECORDS SUMMARY | 2024-08-27 06:54 | XMS_ITS | Encounter Summary ---
Author Organization [facility] Address [address] [place] [address]. [place] [address] [place] [address] Care Team Providers Care Beef Splitter Name Role Phone Albert Ruby MD Primary Care Provider [phone] Tremayne Shi MD Unavailable [phone] Reason for Visit * Reason Onset Date Comments Medication 06/22/2023 Encounter Details Date Type Department Care Team (Late st Contact Info) Description 06/22/2023 Telephone [facility] Medical Group Family and Sports Medicine - [place] [address] [place] [address] Albert Ruby MD 670 [facility] 200 [place] [address] Medication Social History Tobacco Use Types Packs/Day [...] 2:45 PM CDT [facility] [place] per pt request. * Tory Asif - 06/22/2023 12:48 PM CDT Pt would like to script for vitamin D2, ergocalciferol, (DRISDOL) 1.25 mg capsule To be sent to [facility] of [facility]. documented in this encounter Plan of Treatment Not on file documented as of this encounter Visit Diagnoses Diagnosis Vitamin D deficiency Unspecified vitamin D deficiency documented in this encounter Additional Health Concerns Assessment Noted Time PHQ-9 Depression Total Score: 11 022 11:44 AM CDT documented as of this encounter Care Teams Beef Splitter Relationship Specialty Start Date End Date Albert Ruby MD [address] [place], [place] [address]VD [address] [place] [address] PCP - General FAMILY PRACTICE 05/16/18 Tremayne Shi MD [facility] [address] [place] [address] EP And Rescue Fire Fighter Crash Fire CARDIOVASCULAR DISEASE 08/15/18 documented as of this encounter
--- OUTSIDE RECORDS SUMMARY | 2024-08-27 06:54 | XMS_ITS | Encounter Summary ---
Author Organization [facility] Address [address] [place] [address]. [place] [address] [place] [address] Care Team Providers Care Limerock Tower Loader Name Role Phone Albert Ruby MD Primary Care Provider [phone] Tremayne Shi MD Unavailable [phone] Reason for Visit * Reason Onset Date Comments Prior Authorization 05/15/2024 Encounter Details Date Type Department Care Team (Late st Contact Info) Description 05/15/[address] [facility] Medical Group Family and Sports Medicine - [place] [address] [place] [address] Albert Ruby MD 670 [facility] 200 [place] [address] Prior Authorization Social History Tobacco Use Types [...] Diagnoses Diagnosis Obesity, diabetes, and hypertension syndrome ([facility]) Type II or unspecified type diabetes mellitus without mention of complication, not stated as uncontrolled Prediabetes Other abnormal glucose Morbid obesity with BMI of 50.0-59.9, adult ([facility] HHS/HCC) Morbid obesity documented in this encounter Additional Health Concerns Assessment Noted Time PHQ-9 Depression Total Score: 3 05/01/20 24 9:25 AM CDT documented as of this encounter Care Teams Limerock Tower Loader Relationship Specialty Start Date End Date Albert Ruby MD [address] [place], [place] [address]VD [address] [place] [address] PCP - General FAMILY PRACTICE 05/16/18 Tremayne Shi MD [facility] [address] [place] [address] EP Spout Positioner CARDIOVASCULAR DISEASE 08/15/18 documented as of this encounter
--- OUTSIDE RECORDS SUMMARY | 2024-08-27 06:54 | XMS_ITS | Encounter Summary ---
Author Organization [facility] Address [address] [place] [address]. [place], [place] [address] [place] [address] Care Team Providers Care Delicatessen Clerk Name Role Phone Albert Ruby MD Primary Care Provider [phone] Tremayne Shi MD Unavailable [phone] Reason for Referral * Imaging (Routine) - Closed Specialty Diagnoses / Procedures Referred By Ines borja Referred To Contact RADIOLOGY Diagnoses RUQ pain Diarrhea, unspecified type LUQ pain Chronic GERD Procedures CT ABD W CON Marin Araujo NP 3 [facility] [address] [place] [address] Phone: tel: fax: Referral ID Status Reason Start Date Expiration Date Visits Re quested Visits Authorized [id number] Closed 10/05/2023 10/05/2024 1 1 AURANT HOST Reason for Visit * Reason Comments New Patient Consult For Colonoscopy Referral colon s creening (abdominal pain ) * Consultation (Routine) - Closed Specialty Diagnoses / Procedures Referred By Ines borja Referred To Contact GASTROENTEROLOGY Diagnoses Gastroesophageal reflux disease without esophagitis Albert Ruby MD [address] [place] [address] [address] [place] [address] Phone: tel: fax: [facility] Medical [facility] Multispecial[facility] 3 [facility], [address] [place] [address] Phone: tel: fax: Referral ID Status Reason Start Date Expiration Date Visits Re quested Visits Authorized [id number] Closed 06/09/2023 06/09/2024 99 99 Encounter Details Date Type Department Care Team (Latest Contact Info) Description 10/05/2023 1:00 PM RESTAURANT HOST Office Visit [facility] Mult[facility]ial[facility] [address] [facility] [address] [place] [address] Albert Ruby MD [address] [place], [place] [address]VD J[address]ON [address] [place] [address] Marin Araujo NP 3 [facility] [address] [place] [address] New Patient; Consult For Colonoscopy [...] Comments Blood Pressure 121/66 10/05/2023 1:04 PM RESTAURANT HOST Pulse 88 10/05/2023 1:04 PM RESTAURANT HOST Temperature 36.3 ??C (97.3 ??F) 10/05/2023 1:04 PM CS T Respiratory Rate 18 10/05/2023 1:04 PM RESTAURANT HOST Oxygen Saturation 96% 10/05/2023 1:04 PM RESTAURANT HOST Inhaled Oxygen Concentration - - Weight 135.6 kg (299 lb) 10/05/2023 1:04 PM RESTAURANT HOST Height 165.1 cm (5' 5 ) 10/05/2023 1:04 PM RESTAURANT HOST Body Mass Index 49.76 10/05/2023 1:04 PM RESTAURANT HOST documented in this encounter Patient Instructions * Attachments The following attachments cannot be sent through Care Everywhere. * Gallbladder Diet (Burmese) documented in this encounter Progress Notes * Marin Araujo, ELECTROSTATIC PAINTER - 10/05/2023 1:00 PM CST Images from [...] 17.5-3.13-1.6 GM/177ML Solution Marin Araujo NP Gastroenterology AURANT HOST documented in this encounter Plan of Treatment Not on file documented as of this encounter Results * CT ABD W CON (10/16/2023 8:32 AM RESTAURANT HOST) Anatomical Region Laterality Modality Abdomen Computed Tomogra phy 10/19/2023 9:29 AM RESTAURANT HOST Impressions 10/19/2023 9:57 AM RESTAURANT HOST =====IMPRESSION:===== 1. Small sliding hiatal hernia. 2. No acute or other significant localizing abdominal process/findings seen to provide a potential explanation for the patient's symptoms. Ordered By: MARIN ARAUJO Interpreted By: Michelle Sifuentes MD, 10/19/2023 9:29 AM Narrative 10/19/2023 9:57 AM RESTAURANT HOST Exam: CT abdomen with contrast Exam Date/Time: [...] Sifuentes MD, 10/19/2023 9:29 AM Marin Araujo ELECTROSTATIC PAINTER CT Final Resul t documented in this [...] documented as of this encounter Care Teams Delicatessen Clerk Relationship Specialty Start Date End Date Albert Ruby MD [address] [place] [address] PCP - General FAMILY PRACTICE 05/16/18 Tremayne Shi MD Three [facility]. [address] [id number] EP Polishing Machine Operator Helper CARDIOVASCULAR DISEASE 08/15/18 documented as of this encounter
--- OUTSIDE RECORDS SUMMARY | 2024-08-27 06:54 | XMS_ITS | Encounter Summary ---
Author Organization [facility] Address [address] [place] [address]. [place] [address] [place] [address] Care Team Providers Care Project Builder Name Role Phone Albert Ruby MD Primary Care Provider [phone] Tremayne Shi MD Unavailable [phone] Reason for Visit * Reason Comments Physical Annual physical exam and refills Encounter Details Date Type Department Care Team (Late st Contact Info) Description 07/01/2022 10:00 AM CDT Office Visit [facility] Medical Group Family and Sports Medicine - [place] [address] [place] [address] Albert Ruby MD 670 [facility] 200 [place] [address] Physical (Annual physical exam and refills/) Social [...] documented as of this encounter Care Teams Project Builder Relationship Specialty Start Date End Date Albert Ruby MD [address] [place] [address] [address] [place] [address] PCP - General FAMILY PRACTICE 05/16/18 Tremayne Shi MD [address] [place] [address] EP Graphite Grinder CARDIOVASCULAR DISEASE 08/15/18 documented as of this encounter
--- OUTSIDE RECORDS SUMMARY | 2024-08-27 06:54 | XMS_ITS | Encounter Summary ---
Author Organization [facility] Address [address] [place] [address]. [place], [place] [address] [place] [address] Care Team Providers Care Customer Support Professional Name Role Phone Albert Ruby MD Primary Care Provider [phone] Tremayne Shi MD Unavailable [phone] Encounter Details Date Type Department Care Team [...] documented as of this encounter Care Teams Customer Support Professional Relationship Specialty Start Date End Date Albert Ruby MD 670 [facility] 200 [place] [address] PCP - General FAMILY PRACTICE 05/16/18 Tremayne Shi MD [address] [place] [place] [address] EP Customer Support Professional CARDIOVASCULAR DISEASE 08/15/18 documented as of this encounter
--- OUTSIDE RECORDS SUMMARY | 2024-08-27 06:54 | XMS_ITS | Encounter Summary ---
Author Organization [facility] Address [address] [place] [address]. [place], [place] [address] [place] [address] Care Team Providers Care Solution Maker Name Role Phone Vania Brown MD Primary Care Provider [phone] Tremayne Shi MD Unavailable [phone] Reason for Visit * Auth/Cert (Routine) Specialty Diagnoses / Procedures Referred By Ines borja Referred To Contact Diagnoses RUQ pain Diarrhea, unspecified type Chronic GERD chronic GERD,episodic RUQ pain naesea/diarrhea Procedures COLONOSCOPY,DIAGNOSTIC UPPER GI ENDOSCOPY,DIAGNOSIS COLONOSCOPY EGD Eduardo Shipman, DO #3 [facility] [address] [place] [address] Phone: tel: fax: Referral ID Status Reason Start Date Expiration Date Visits Re quested Visits Authorized [id number] 1 1 Encounter Details Date Type Department Care Team (Late st Contact Info) Description 11/15/2023 10:30 AM JEWEL SETTER - 11/15/2023 11:00 AM JEWEL SETTER Surgery [facility] Endo/[place], [place] [address] Eduardo Shipman, DO #3 [facility] [address] [place] [id number] COLONOSCOPY with large cold forcep random biopsies [...] Comments Blood Pressure 122/90 11/15/2023 9:10 AM JEWEL SETTER Pulse 67 11/15/2023 9:15 AM JEWEL SETTER Temperature 36.1 ??C (97 ??F) 11/15/2023 9:10 AM JEWEL SETTER Respiratory Rate 16 11/15/2023 9:15 AM JEWEL SETTER Oxygen Saturation 100% 11/15/2023 9:10 AM JEWEL SETTER Inhaled Oxygen Concentration - - Weight 135.2 kg (298 lb) 11/02/2023 4:47 PM JEWEL SETTER Height 162.6 cm (5' 4 ) 11/02/2023 4:47 PM JEWEL SETTER Body Mass Index 51.15 11/02/2023 4:47 PM JEWEL SETTER documented in this encounter Discharge Instructions * Discharge Instructions* Elle Brown LPN - 11/15/2023 11:59 AM JEWEL SETTER Recommendations: Call 2 weeks for biopsy report. Follow-up with primary physician. Patient has significant sleep apnea observed during procedure. Antireflux regimen reinforced. Continue esomeprazole. OTC famotidine 20/40 mg at bedtime if needed. May benefit from gastric emptying study. Avoid NSAIDs. Benefiber daily. 3X Systems or Florastor per label instructions. Low carbohydrate diet, exercise, and weight loss encouraged due to hepatic steatosis. Transaminases should be checked every 6 months. Follow-up with ALFA Piper in office. L SETTER * Attachments The following attachments cannot be sent through Care Everywhere. * General Anesthesia Discharge Instructions (Mauritian) * Colonoscopy Discharge Instructions (Mauritian) * Upper GI Endoscopy Discharge Instructions (Mauritian) documented in this encounter Medications at Time [...] is in agreement to proceed as planned. L SETTER documented in this encounter OR Notes * [...] explained in detail to the patient/power of attorney general. These were understood, assumed and written consent [...] gastric emptying study. Avoid NSAIDs. Benefiber daily. 3X Systems or Fixationalstor per label instructions. Low carbohydrate diet, exercise, and weight loss encouraged due to hepatic steatosis. Transaminases should be checked every 6 months. Follow-up with ALFA Piper in office. Anes: MAC Complications: No immediate. Quality Indicators: EBL: <5 mL Prep: Good. Procedure: The benefits, risks, complications and alternatives were explained in detail to the patient/power of attorney general. These were understood, assumed and written consent [...] documentation will be obtained. Eduardo Shipman DO L SETTER L SETTER documented in this encounter Plan of Treatment Not on file documented as of this encounter Procedures Procedure Name Priority Date/Time Associated Diagnosis Comments COLONOSCOPY Routine 11/15/2023 11:58 AM JEWEL SETTER EGD Routine 11/15/2023 11:58 AM JEWEL SETTER UPPER GI ENDOSCOPY,BIOPSY 11/15/2023 11:15 AM JEWEL SETTER RUQ pain Diarrhea, unspecified type Chronic GERD COLONOSCOPY WITH BIOPSY 11/15/2023 11:15 AM JEWEL SETTER RUQ pain Diarrhea, unspecified type Chronic GERD PROCEDURE GENERIC 11/15/2023 11: 06 AM JEWEL SETTER PATHOLOGY Routine 11/15/2023 12:00 AM JEWEL SETTER documented in this encounter Results * PROCEDURE GENERIC (11/15/2023 11:06 AM JEWEL SETTER) us Eduardo Shipman DO [facility] Final Result * Pathology (11/15/2023 12:00 AM JEWEL SETTER) PATHOLOGY [facility] ? Department of Laboratory Medicine ?[address] [facility] ?[place] [address] ? , [facility] [id number] ? Pathology Report ? Surgical Pathology Report Name: PRANAY GONZALEZ ?Specimen #: [id number] Age: 1 2000 (Age: 23) ? Location: [facility] Sex: F ?Procedure Date: 11/15/2023 [facility] #: [id number] ?Date Received: 11/15/2023 Date Reported: 11/16/2023 Provider: [...] interpretation, and sign out were performed at [facility], [address] [place] [address]. FINAL DIAGNOSIS: A) STOMACH, BIOPSY: ? - BENIGN GASTRIC MUCOSA. ? - NO HELICOBACTER PYLORI BY H&E. B) COLON, RANDOM BIOPSY: ? - BENIGN COLONIC MUCOSA WITH LYMPHOID AGGREGATES. ? - NO EVIDENCE OF ACUTE OR MICROSCOPIC COLITIS. Electronically Signed Out ? ANTONIETTA VELAZQUEZ MD [facility] TISSUE GASTRIC BIOPSY SPECIMEN / Unknown 11/15/2023 11:29 AM JEWEL SETTER Tissue specimen (specimen) COLON STRUCTURE / Unknown 11/15/2023 11:37 AM JEWEL SETTER us Eduardo Shipman DO PATHOLOGY/CYTOLOGY ORDERABLES F inal Result [facility] [address] [place] [address], [place] [phone] documented in this encounter Visit Diagnoses Diagnosis [...] Pre-Op Continued by Anesthesia 11/15/2023 11:14 AM JEWEL SETTER New Bag 11/15/2023 11:11 AM JEWEL SETTER ondansetron (ZOFRAN) injection 4 mg 4 mg, [...] Recently Administered Medications Times are shown in JEWEL SETTER. Continuous Medication Order 11/13/2023 11/14/2023 11/15/2023 lactated [...] documented as of this encounter Care Teams Solution Maker Relationship Specialty Start Date End Date Vania Brown MD 670 [facility] [address] [place] [address] PCP - General FAMILY PRACTICE 05/16/18 Tremayne Shi MD [address] [facility] [address] [place], [place] [address] EP Watermaster CARDIOVASCULAR DISEASE 08/15/18 documented as of this encounter
--- OUTSIDE RECORDS SUMMARY | 2024-08-27 06:54 | XMS_ITS | Encounter Summary ---
Author Organization [facility] Address [address] [place] [address]. [place] [address] Care Team Providers Care Manpower Development Specialist Manager Name Role Phone Albert Ruby MD Primary Care Provider [phone] Tremayne Shi MD Unavailable [phone] Encounter Details Date Type Department Care Team [...] Depression Total Score: 10 021 8:11 AM NBA PLAYER documented as of this encounter Care Teams Manpower Development Specialist Manager Relationship Specialty Start Date End Date Albert Ruby MD 670 [facility] [address] [place] [address] PCP - General FAMILY PRACTICE 05/16/18 Tremayne Shi MD Three [facility]. [address] [place] [address] EP Bath Design Sales Consultant CARDIOVASCULAR DISEASE 08/15/18 documented as of this encounter
--- OUTSIDE RECORDS SUMMARY | 2024-08-27 06:54 | XMS_ITS | Encounter Summary ---
Author Organization [facility] Address [address] [place] [address]. [place], [place] [address] [place] [address] Care Team Providers Care Drawing Machine Operator Name Role Phone Albert Brown MD Primary Care Provider [phone] Tremayne Shi MD Unavailable [phone] Reason for Visit * Reason Comments Physical Annual Physical Exam Encounter Details Date Type Department Care Team (Late st Contact Info) Description 07/07/2023 9:00 AM CDT Office Visit [facility] Medical Group Family and Sports Medicine - [place] [address] [place] [address] Albert Brown MD 670 [facility] 200 [place] [address] Physical (Annual Physical Exam/) Social History Tobacco [...] Annual Health Maintenance Exam Patient Care Team: lAbert Brown MD as PCP - General (FAMILY PRACTICE) Tremayne Shi MD as EP Upsetting Machine Operator (CARDIOVASCULAR DISEASE) History of Present Illness: Laura [...] (FAMILY PRACTICE) Tremayne Shi MD as EP Upsetting Machine Operator (CARDIOVASCULAR DISEASE) Medications: Current Outpatient Medications Medication [...] as of this encounter Care Teams Drawing Machine Operator Relationship Specialty Start Date End Date Albert Brown MD [address] [place] [address] NNAM[address] [place] [address] PCP - General FAMILY PRACTICE 05/16/18 Tremayne Shi MD [facility]. Nnamdi [address] [place] [address] EP Upsetting Machine Operator CARDIOVASCULAR DISEASE 08/15/18 documented as of this encounter
--- OUTSIDE RECORDS SUMMARY | 2024-08-27 06:54 | XMS_ITS | Encounter Summary ---
Author Organization [facility] Address [address] [place] [address]. [place], [place] [address] [place] [address] Care Team Providers Care Laborer Stores Name Role Phone Albert Ruby MD Primary Care Provider [phone] Tremayne Shi MD Unavailable [phone] Encounter Details Date Type Department Care Team (Late st Contact Info) Description 04/03/2021 MyCBeam Networkst Message Enc [facility] Medical Group Family and Sports Medicine - [place] [address] [place] [address] Albert Ruby MD [address] [address] RE: Referral Request Social History Tobacco Use [...] Depression Total Score: 10 021 8:11 AM GENERATOR REPAIRER documented as of this encounter Care Teams Laborer Stores Relationship Specialty Start Date End Date Albert Ruby MD [address] [facility] [address] [place] [address] PCP - General FAMILY PRACTICE 05/16/18 Tremayne Shi MD Three [facility] Nnamdi [address] [place] [address] EP Photographic Double CARDIOVASCULAR DISEASE 08/15/18 documented as of this encounter
--- OUTSIDE RECORDS SUMMARY | 2024-08-27 06:54 | XMS_ITS | Encounter Summary ---
Author Organization [facility] Address [address] [place] [address]. [place] [address] [place] [address] Care Team Providers Care Machined Parts Metal Sprayer Name Role Phone Albert Ruby MD Primary Care Provider [phone] Tremayne Shi MD Unavailable [phone] Encounter Details Date Type Department Care Team (Late st Contact Info) Description 06/21/2023 Orders Only [facility] Medical Group Family and Sports Medicine - [place] [address] [place] [address] Tana Terry NP 670 [place] [address] Social History Tobacco Use Types Packs/Day Years [...] HEMOGLOBIN, GLYCOSYLATED (06/21/2023 2:31 PM CDT) Pathologist [facility] HGB A1C 5.1 <5.7 % of total Hgb [place] Comment: For the purpose of screening for the presence of diabetes: <5.7% ? Consistent with the absence of diabetes 5.7-6.4% ?Consistent with increased risk for diabetes ?(prediabetes) > or =6.5% ??Consistent with diabetes This assay result is consistent with a decreased risk of diabetes. Currently, no consensus exists regarding use of hemoglobin A1c for diagnosis of diabetes in children. According to [place] Diabetes Association (ADA) guidelines, hemoglobin A1c <7.0% represents optimal control in non- diabetic patients. Different metrics may apply to specific patient populations. Standards of Medical Care in Diabetes(ADA). ?? 06/21/2023 2:31 PM CDT 06/21/2023 2:34 PM CDT Narrative Resulting Agency Comment Performing Organization Information: ?Site ID: ?Name: [facility] ?Address: [facility] [place] [address] ?Director: Yuli Li us Tana Terry NP LABORATORY Final Result [facility] [place] [address] [place] [address], * (ABNORMAL) VITAMIN D, 25 OH TOTAL (06/21/2023 2:31 PM CDT) Pathologist [facility] VITAMIN D 25 HYDROXY TOTAL S/P/B 9(L) 30 - 100 ng/mL [address] [facility] Comment: Vitamin D Status ? 25-OH Vitamin D: Deficiency: ?<20 ng/mL Insufficiency: ? 20 - 29 ng/mL Optimal: ? > or = 30 ng/mL For 25-OH Vitamin D testing on patients on D2-supplementation and patients for whom quantitation of D2 and D3 fractions is required, the QuestAssureD() 25-OH VIT D, (D2,D3), LC/MS/MS is recommended: order code [id number] (patients >2yrs). See Note 1 Note 1 For additional information, please refer to http://education.[employer]/faq/TVF000 (This link is being provided for informational/ educational purposes only.) 06/21/2023 2:31 PM CDT 06/21/2023 2:34 PM CDT Narrative Resulting Agency Comment Performing Organization Information: ?Site ID: HAIM ?Name: [facility] ?Address: [place] [address] ?Director: Jaycob Johnson PhD us Tana Terry NP LABORATORY Final Result Performing Organization Address [facility] de Phone Number [facility] [place] [facility] [address] [facility] [address] [place] [address], * TSH W/REFLEX (06/21/2023 2:31 PM CDT) TSH 2.31 mIU/L [address] [facility] Comment: ?Reference Range ?> or = 20 Years ??0.40-4.50 ? Ranges ?First trimester ?0.26-2.66 ?Second trimester ?? 0.55-2.73 ?Third trimester ?0.43-2.91 06/21/2023 2:31 PM CDT 06/21/2023 2:34 PM CDT Narrative Resulting Agency Comment Performing Organization Information: ?Site ID: HAIM ?Name: [facility] ?Address: [address] [place] [address] ?Director: Jaycob Johnson PhD us Tana Terry NP LABORATORY Final Result Performing Organization Address [facility] Co de Phone Number [facility] - [place] MARY ANNE [address] [facility] [address] [place] [address], * (ABNORMAL) CBC W/DIFF AUTOMATED (06/21/2023 2:31 PM CDT) Pathologist [facility] WBC 10.6 3.8 - 10.8 Thousand/ uL [facility] RBC 4.77 3.80 - 5.10 Million/u L [...] PLT 300 140 - 400 Thousand/ uL [facility] [place] MPV 12.5 7.5 - 12.5 fL [facility] ABS. NEUTROPHILS 6,795 1,500 - 7,800 cells/uL [facility] ABS. LYMPHOCYTES 3,127 850 - 3,900 cells/uL [facility] [place] ABS. MONOCYTES 562 200 - 950 cells/uL [facility] ABS. EOSINOPHILS 95 15 - 500 cells/uL [facility] ABS. BASOPHILS 21 0 - 200 cells/uL [address] [facility] SEG NEUTROPHILS 64.1 % [facility] LYMPHOCYTES 29.5 % [facility] [place] MONOCYTES 5.3 % [facility] EOSINOPHILS 0.9 % [facility] BASOPHILS 0.2 % [facility] [place] 06/21/2023 2:31 PM CDT 06/21/2023 2:34 PM CDT Narrative Resulting Agency Comment Performing Organization Information: ?Site ID: CO ?Name: [facility] ?Address: [address] [place] [address] ?Director: Jaycob Johnson PhD us Tana Terry NP LABORATORY Final Result [facility] [address] [place] [address], * (ABNORMAL) COMPREHENSIVE METABOLIC PANEL (06/21/2023 2:31 PM CDT) [facility] GLUCOSE 105(H) 65 - 99 mg/dL [facility] [[email or web address]] [employer] [facility] Comment: ? Fasting reference interval For someone without known diabetes, a glucose value between 100 and 125 mg/dL is consistent with prediabetes and should be confirmed with a follow-up test. BUN 10 7 - 25 mg/dL [facility] [[email or web address]] [employer] [facility] CREATININE S/P/B 0.82 0.50 - 0.96 mg/dL [facility] [[email or web address]] [employer] [facility] GFR ESTIMATE 103 > OR = 60 mL/min/1. 73m2 [facility] [[email or web address]] [employer] [facility] BUN CREATININE RATIO SEE NOTE: (calc) [facility] [[email or web address]] [employer] [facility] Comment: ?? Not Reported: BUN and Creatinine are within ?? reference range. ? SODIUM S/P/B 138 135 - 146 mmol/L [facility] [[email or web address]] [employer] [facility] POTASSIUM S/P/B 4.0 3.5 - 5.3 mmol/L [facility] [[email or web address]] [employer] [facility] CHLORIDE S/P/B 107 98 - 110 mmol/L [facility] CO2 24 20 - 32 mmol/L [facility] [[email or web address]] [employer] [facility] CALCIUM S/P/B 8.8 8.6 - 10.2 mg/dL [facility] [[email or web address]] [employer] [facility] TOTAL PROTEIN S/P/B 6.8 6.1 - 8.1 g/dL [facility] [[email or web address]] [employer] [facility] ALBUMIN S/P/B 3.6 3.6 - 5.1 g/dL [facility] [[email or web address]] [employer] [facility] GLOBULIN 3.2 1.9 - 3.7 g/dL (calc) [facility] [[email or web address]] [employer] [facility] ALBUMIN/GLOBULI N RATIO 1.1 1.0 - 2.5 (calc) [address] [facility] BILIRUBIN TOTAL S/P/B 0.2 0.2 - 1.2 mg/dL [facility] [[email or web address]] [employer] [facility] ALKALINE PHOSPHATASE S/P/B 82 31 - 125 U/L [facility] [[email or web address]] [employer] [facility] AST 12 10 - 30 U/L [address] [facility] ALT 12 6 - 29 U/L [address] [facility] 06/21/2023 2:31 PM CDT 06/21/2023 2:34 PM CDT Narrative Resulting Agency Comment Performing Organization Information: ?Site ID: [place] ?Name: [facility] ?Address: [address] [address] ?Director: Jaycob Johnson PhD Tana Terry NP LABORATORY Final Result [facility] [address] [place] [address], * LIPID PANEL (06/21/2023 2:31 PM CDT) CHOLESTEROL 124 <200 mg/dL [facility] HDL 60 > OR = 50 mg/dL [facility] TRIGLYCERIDES 89 <150 mg/dL [facility] LDL (CALCULATED) 47 mg/dL (calc) [facility] Comment: Reference range: <100 Desirable range <100 mg/dL for primary prevention; ?? <70 mg/dL for patients with CHD or diabetic patients with > or = 2 CHD risk factors. LDL-C is now calculated using the Amairani calculation, which is a validated novel method providing better accuracy than the Friedewald equation in the estimation of LDL-C. Kevin SS et al. AMAN. 2013;310(19): 1600-8020 (http://education.[employer]/faq/ESL064) CHOL/HDL RATIO 2.1 <5.0 (calc) [facility] NON HDL CHOLESTEROL 64 <130 mg/dL (calc) [facility] Comment: For patients with diabetes plus 1 major ASCVD risk factor, treating to a non-HDL-C goal of <100 mg/dL (LDL-C of <70 mg/dL) is considered a therapeutic option. 06/21/2023 2:31 PM CDT 06/21/2023 2:34 PM CDT Narrative Resulting Agency Comment Performing Organization Information: ?Site ID: [place] ?Name: [facility] ?Address: [address] [place] [address] ?Director: Jaycob Johnson PhD Tana Terry NP LABORATORY Final Result Performing Organization Address City/[facility]/ZIP Co de Phone Number [facility] [address] [place] [address], documented in this encounter Visit Diagnoses Diagnosis Vitamin D deficiency- Primary Unspecified vitamin D deficiency documented in this encounter Additional Health Concerns Assessment Noted Time PHQ-9 Depression Total Score: 11 022 11:44 AM CDT documented as of this encounter Care Teams Machined Parts Metal Sprayer Relationship Specialty Start Date End Date Albert Ruby MD 670 [facility] N[address] [place] [address] PCP - General FAMILY PRACTICE 05/16/18 [facility] Nnamdi [address] [place], [place] [address] EP Spinning Frame Changer CARDIOVASCULAR DISEASE 08/15/18 documented as of this encounter
--- OUTSIDE RECORDS SUMMARY | 2024-08-27 06:54 | XMS_ITS | Encounter Summary ---
Author Organization [facility] Address [address] [place] [address]. [place], [place] [address] [place] [address] Care Team Providers Care Audit Practice Intern Name Role Phone Albert Ruby MD Primary Care Provider [phone] Tremayne Shi MD Unavailable [phone] Reason for Visit * Reason Comments Anxiety 4 week f/u on Insomn ia Encounter Details Date Type Department Care Team (Late st Contact Info) Description 08/11/2023 8:00 AM TAX MANAGER Office Visit [facility] Medical Group Family and Sports Medicine - [place] [address] [place] [address] Albert Ruby MD [address] [address] Anxiety (4 week f/u on Insomnia) Social [...] Comments Blood Pressure 115/79 08/11/2023 8:06 AM TAX MANAGER Pulse 73 08/11/2023 8:06 AM TAX MANAGER Temperature - - Respiratory Rate 20 08/11/2023 8:06 AM TAX MANAGER Oxygen Saturation 97% 08/11/2023 8:06 AM TAX MANAGER Inhaled Oxygen Concentration - - Weight 137 kg (302 lb) 08/11/2023 8:06 AM TAX MANAGER Height 165.1 cm (5' 5 ) 08/11/2023 8:06 AM TAX MANAGER Body Mass Index 50.26 08/11/2023 8:06 AM TAX MANAGER documented in this encounter Progress Notes [...] (FAMILY PRACTICE) Tremayne Shi MD as EP Ward Supervisor (CARDIOVASCULAR DISEASE) Medications: Current Outpatient Medications Medication [...] meat. . Will get labs as per ITC. See orders for this visit as documented [...] Reason ALPRAZolam (XANAX) 0.25 MG tablet Reorder MANAGER documented in this encounter Plan of Treatment Not on file documented as of this encounter Visit Diagnoses Diagnosis Anxiety Anxiety state, unspecified documented in this encounter Additional Health Concerns Assessment Noted Time PHQ-9 Depression Total Score: 4 07/07/20 8:53 AM CDT documented as of this encounter Care Teams Audit Practice Intern Relationship Specialty Start Date End Date Albert Ruby MD [address] [place] [address] [address] [place] [address] PCP - General FAMILY PRACTICE 05/16/18 Tremayne Shi MD [facility]. Nnamdi [address] [place] [address] EP Ward Supervisor CARDIOVASCULAR DISEASE 08/15/18 documented as of this encounter
--- OUTSIDE RECORDS SUMMARY | 2024-08-27 06:54 | XMS_ITS | Encounter Summary ---
Author Organization [facility] Address [address] [place] [address]. [place], [place] [address] [place] [address] Care Team Providers Care Real Estate Officer Name Role Phone Albert Ruby MD Primary Care Provider [phone] Tremayne Shi MD Unavailable Encounter Details Date Type Department Care Team (Late st Contact Info) Description 04/06/2021 Agent Video Intelligence Message Enc [facility], NNA[address] [place], [place] [id number] Tremayne Shi MD Three [facility]. Nnamdi [address] [place] [address] RE: Medication Questions Social History [...] Depression Total Score: 10 021 8:11 AM SIENE MAKER documented as of this encounter Care Teams Real Estate Officer Relationship Specialty Start Date End Date Albert Ruby MD [address] [facility] [address] [place] [address] PCP - General FAMILY PRACTICE 05/16/18 Tremayne Shi MD Three [facility] Nnamdi [address] [facility], [place] [address] EP Ross Furnace Operator CARDIOVASCULAR DISEASE 08/15/18 documented as of this encounter
--- OUTSIDE RECORDS SUMMARY | 2024-08-27 06:54 | XMS_ITS | Encounter Summary ---
Author Organization [facility] Address [address] [place] [address]. [place], [place] [address] [place] [address] Care Team Providers Care Medical Laboratory Technologist Name Role Phone Albert Ruby MD Primary Care Provider [phone] Tremayne Shi MD Unavailable [phone] Encounter Details Date Type Department Care Team [...] documented as of this encounter Care Teams Medical Laboratory Technologist Relationship Specialty Start Date End Date Albert Ruby MD 670 [facility] 200 [place] [address] PCP - General FAMILY PRACTICE 05/16/18 Tremayne Shi MD [place] [address] [place] [address] EP Inside Finisher CARDIOVASCULAR DISEASE 08/15/18 documented as of this encounter
--- OUTSIDE RECORDS SUMMARY | 2024-08-27 06:54 | XMS_ITS | Encounter Summary ---
Author Organization [facility] Address [address] [place] [address]. [place], [place] [address] [place] [address] Care Team Providers Care Dispatcher Service Or Work Name Role Phone Albert Ruby MD Primary Care Provider [phone] Tremayne Shi MD Unavailable [phone] Reason for Visit * Reason Comments Blood Pressure Elevated BP. Monday of this week it was 191/121 she felt dizzy, 171/102 couple hours later. Went to ER. 153/102 in ER. 119/100 before she left the ER. Encounter Details Date Type Department Care Team (Late st Contact Info) Description 05/04/2023 1:40 PM CDT Office Visit [facility] Medical Group Family and Sports Medicine - [place] [address] [place] [address] Tana Terry, SUPERVISOR POLISHING [address] [place] [address] Blood Pressure (Elevated BP. Monday of this [...] * Controlling your blood pressure through lifestyle ([place]) documented in this encounter Progress Notes * Tana Terry NP - 05/04/2023 1:40 PM CDT Images from the original note were not included. Primary and Specialty Care [address], [address] [place] [address] OFFICE VISIT NOTE Encounter Date: 05/05/2023 Chief [...] the day of the encounter. This includes kdvx-ea-liek and dib-zces-zm-face time I provided on the day of [...] documented as of this encounter Care Teams Dispatcher Service Or Work Relationship Specialty Start Date End Date Albert Ruby MD [address] [place] [address] [address] [place] [address] PCP - General FAMILY PRACTICE 05/16/18 Tremayne Shi MD [facility]. Nnamdi [address] [place] [address] EP Garnetter CARDIOVASCULAR DISEASE 08/15/18 documented as of this encounter
--- OUTSIDE RECORDS SUMMARY | 2024-08-27 06:54 | XMS_ITS | Encounter Summary ---
Author Organization [facility] Address [address] [place] [address]. [place], [place] [address] [place] [address] Care Team Providers Care Imaging Scheduler Name Role Phone Albert Ruby MD Primary Care Provider [phone] Tremayne Shi MD Unavailable [phone] Reason for Visit * Reason Comments Image [...] documented as of this encounter Care Teams Imaging Scheduler Relationship Specialty Start Date End Date Albert Ruby MD [address] [facility] [address] [place], [place] [id number] PCP - General FAMILY PRACTICE 05/16/18 Tremayne Shi MD [address] [place], [place] [address] EP Tube Machine Operator Helper CARDIOVASCULAR DISEASE 08/15/18 documented as of this encounter
--- OUTSIDE RECORDS SUMMARY | 2024-08-27 06:54 | XMS_ITS | Encounter Summary ---
Author Organization [facility] Address [address] [place] [address]. [place], [place] [address] [place] [address] Care Team Providers Care Rn Eligibility Name Role Phone Albert Ruby MD Primary Care Provider [phone] Tremayne Shi MD Unavailable [phone] Encounter Details Date Type Department Care Team [...] documented as of this encounter Care Teams Rn Eligibility Relationship Specialty Start Date End Date Albert Ruby MD 670 [facility] 200 [place] [address] PCP - General FAMILY PRACTICE 05/16/18 Tremayne Shi MD [place] [address] [place] [address] EP Director Of Event Sales CARDIOVASCULAR DISEASE 08/15/18 documented as of this encounter
--- OUTSIDE RECORDS SUMMARY | 2024-08-27 06:54 | XMS_ITS | Encounter Summary ---
Author Organization [facility] Address [address] [place] [address]. [place], [place] [address] [place] [address] Care Team Providers Care Retail Chain Store Area Supervisor Name Role Phone Albert Ruby MD Primary Care Provider [phone] Tremayne Shi MD Unavailable [phone] Encounter Details Date Type Department Care Team (Late st Contact Info) Description 12/15/2021 MyCSocialGuidet Message Enc [facility] Medical Group Family and Sports Medicine - [place] [address] [place] [address] Albert Ruby MD [address] [address] Medication refills Social History Tobacco Use Types [...] documented as of this encounter Care Teams Retail Chain Store Area Supervisor Relationship Specialty Start Date End Date Albert Ruby MD [address] [facility] [address] [place] [address] PCP - General FAMILY PRACTICE 05/16/18 Tremayne Shi MD Three [facility] Nnamdi [address] [facility] [place] [address] EP Home Restoration Service Cleaner CARDIOVASCULAR DISEASE 08/15/18 documented as of this encounter
--- OUTSIDE RECORDS SUMMARY | 2024-08-27 06:54 | XMS_ITS | Encounter Summary ---
Author Organization [facility] Address [address] [place] [address]. [place], [place] [address] [place] [address] Care Team Providers Care Valuer Name Role Phone Albert Ruby MD Primary Care Provider [phone] Tremayne Shi MD Unavailable [phone] Reason for Referral * Consultation/Treatment (Routine) - Closed Specialty Diagnoses / Procedures Referred By Ines borja Referred To Contact Diagnoses Gallstone Albert Ruby MD [address] [place] [address] Phone: tel: fax: Zachariah Patiño IV, MD Phone: tel: fax: Referral ID Status Reason Start Date Expiration Date Visits Re quested Visits Authorized [id number] Closed 04/05/2021 05/06/2022 99 99 Scheduling Instructions [facility] general surgery Wilber Kaylyn [address] [place] [address] Gallstones Encounter Details Date Type Department Care Team (Late st Contact Info) Description 04/05/2021 Orders Only [facility] Medical Group Family and Sports Medicine - [place] [address] [place] [address] Albert Ruby MD [address] [place] [address] Social History Tobacco Use Types Packs/Day Years [...] Depression Total Score: 10 021 8:11 AM STRIPPING MACHINE OPERATOR documented as of this encounter Care Teams Valuer Relationship Specialty Start Date End Date Albert Ruby MD 670 [facility] [address] [place] [address] PCP - General FAMILY PRACTICE 05/16/18 Tremayne Shi MD Three [facility] Nnam[address] [place], [place] [address] EP Frontend Engineer CARDIOVASCULAR DISEASE 08/15/18 documented as of this encounter
--- OUTSIDE RECORDS SUMMARY | 2024-08-27 06:54 | XMS_ITS | Encounter Summary ---
Author Organization [facility] Address [facility]. [place], [place] [address] [place] [address] Care Team Providers Care Production Machine Computer Operator Name Role Phone Albert Ruby MD Primary Care Provider [phone] Tremayne Shi MD Unavailable [phone] Encounter Details Date Type Department Care Team (Latest Contact Info) Description 07/04/2022 ItsMyURLst Message Enc [facility] Family and Sports Medicine - [place] [address] [place] [address] Albert Ruby MD [address] [address] Prescription questions Social History Tobacco Use Types [...] I was given on Monday called into [facility] in [place], [place], it is right just my work. Thank you documented in this encounter Plan of Treatment Not on file documented as of this encounter Visit Diagnoses Diagnosis Anxiety Anxiety state, unspecified Palpitations documented in this encounter Additional Health Concerns Assessment Noted Time PHQ-9 Depression Total Score: 11 022 11:44 AM CDT documented as of this encounter Care Teams Production Machine Computer Operator Relationship Specialty Start Date End Date Albert Ruby MD [address] [place] [address] [address] [facility] [place] [address] PCP - General FAMILY PRACTICE 05/16/18 Tremayne Shi MD [facility]. Nnamdi [address] [place] [address] EP Raveler CARDIOVASCULAR DISEASE 08/15/18 documented as of this encounter
--- OUTSIDE RECORDS SUMMARY | 2024-08-27 06:54 | XMS_ITS | Encounter Summary ---
Author Organization [facility] Address [address] [place] [address]. [place], [place] [address] [place] [address] Care Team Providers Care Network Systems Integrator Name Role Phone Albert Ruby MD Primary Care Provider [phone] Tremayne Shi MD Unavailable [phone] Reason for Visit * Auth/Cert (Routine) Specialty Diagnoses / Procedures Referred By Ines borja Referred To Contact Diagnoses RUQ pain Diarrhea, unspecified type Chronic GERD chronic GERD,episodic RUQ pain naesea/diarrhea Procedures COLONOSCOPY,DIAGNOSTIC UPPER GI ENDOSCOPY,DIAGNOSIS COLONOSCOPY EGD Velasquez Shipman, DO #3 [facility] [address] [place] [address] Phone: tel: fax: Referral ID Status Reason Start Date Expiration Date Visits Re quested Visits Authorized [id number] 1 1 Encounter Details Date Type Department Care Team (Late st Contact Info) Description 11/15/2023 11:14 AM LAW OFFICE ASSISTANT Anesthesia Event [facility] [place], [place] [id number] Piotr Martinez MD [employer] [address] [address] Anesthesia Record Procedure Summary Procedure Name Responsible [...] no known notable events for this encounter. OFFICE ASSISTANT * Anesthesia Preprocedure Evaluation - Piotr Martinez [...] patient of whom consent was obtained. . OFFICE ASSISTANT documented in this encounter Plan of Treatment [...] 1149, Anesthesia Intra-Op Given 11/15/2023 11:35 AM LAW OFFICE ASSISTANT 4 puffs lactated ringers infusion at 10 mL/hr, Intravenous, Continuous, Starting on Mon11/15/23 at 0915, Until Mon11/15/23 at 1425, Infuse at TKO rate, Pre-Op Continued by Anesthesia 11/15/2023 11:14 AM LAW OFFICE ASSISTANT New Bag 11/15/2023 11:11 AM LAW OFFICE ASSISTANT lidocaine (PF) (XYLOCAINE) 2 % injection Intravenous, PRN, Starting on Mon11/15/23 at 1128, Until Mon11/15/23 at 1149, Anesthesia Intra-Op Given 11/15/2023 11:28 AM LAW OFFICE ASSISTANT 100 mg propofol (DIPRIVAN) IV bolus Intravenous, PRN, Starting on Mon11/15/23 at 1128, Until Mon11/15/23 at 1149, Anesthesia Intra-Op Rate/Dose Change 11/15/2023 11:30 AM LAW OFFICE ASSISTANT 175 mcg/kg/min 141.96 mL/hr Given 11/15/2023 11:29 AM LAW OFFICE ASSISTANT 50 mg Given 11/15/2023 11:28 AM LAW OFFICE ASSISTANT 100 mg documented in this encounter Additional Health Concerns Assessment Noted Time PHQ-9 Depression Total Score: 4 07/07/20 23 8:53 AM CDT documented as of this encounter Care Teams Network Systems Integrator Relationship Specialty Start Date End Date Albert Ruby MD [address] [place] [address] [address] [place] [address] PCP - General FAMILY PRACTICE 05/16/18 Tremayne Shi MD [facility]. [address]namdi [address] [place] [address] EP Java Web Developer CARDIOVASCULAR DISEASE 08/15/18 documented as of this encounter
--- OUTSIDE RECORDS SUMMARY | 2024-08-27 06:54 | XMS_ITS | Encounter Summary ---
Author Organization [facility] Address [address] [place] [address]. [place], [place] [address] [place] [address] Care Team Providers Care Rehabilitation Assistant Name Role Phone Albert Ruby MD Primary Care Provider [phone] Tremayne Shi MD Unavailable [phone] Encounter Details Date Type Department Care Team (Late st Contact Info) Description 05/23/2023 CoFluent Designt Message Enc [facility] Medical Group Family and Sports Medicine - [place] [address] [place] [address] Tana Dennison, SAP DATA ANALYST [address] [place] [address] Blood pressures Social History Tobacco Use Types [...] documented as of this encounter Care Teams Rehabilitation Assistant Relationship Specialty Start Date End Date Albert Ruby MD [address] [facility] [address] [place], [place] [id number] PCP - General FAMILY PRACTICE 05/16/18 Tremayne Shi MD [facility] [address] [facility], [place] [id number] EP Air Traffic Control Supervisor CARDIOVASCULAR DISEASE 08/15/18 documented as of this encounter
--- OUTSIDE RECORDS SUMMARY | 2024-08-27 06:54 | XMS_ITS | Encounter Summary ---
Author Organization [facility] Address [address] [place] [address]. [place], [place] [address] [place] [address] Care Team Providers Care Head Of Advertising Name Role Phone Albert Ruby MD Primary Care Provider [phone] Tremayne Shi MD Unavailable [phone] Encounter Details Date Type Department Care Team (Late st Contact Info) Description 03/24/2021 MyCSightCallt Message Enc [facility] Medical Group Family and Sports Medicine - [place] [address] [place] [address] Albert Ruby MD [address] [address] RE: Other Social History Tobacco Use Types [...] Depression Total Score: 10 021 8:11 AM AUTOMATIC PILOT MECHANIC documented as of this encounter Care Teams Head Of Advertising Relationship Specialty Start Date End Date Albert Ruby MD [address] [facility] [address] [place] [address] PCP - General FAMILY PRACTICE 05/16/18 Tremayne Shi MD [facility] [place] [facility] Nnamdi [address] [facility] [place] [address] EP Operational Risk Analyst CARDIOVASCULAR DISEASE 08/15/18 documented as of this encounter
--- OUTSIDE RECORDS SUMMARY | 2024-08-27 06:54 | XMS_ITS | Encounter Summary ---
Author Organization [facility] Address [address] [place] [address]. [place] [address] Care Team Providers Care Rfid Developer Name Role Phone Albert Ruby MD Primary Care Provider [phone] Tremayne Shi MD Unavailable [phone] Encounter Details Date Type Department Care Team [...] documented as of this encounter Care Teams Rfid Developer Relationship Specialty Start Date End Date Albert Ruby MD [address] [place] [address] 200 [place] [address] PCP - General FAMILY PRACTICE 05/16/18 Tremayne Shi MD [facility]. [facility] [address] [place] [address] EP Apple Thinner CARDIOVASCULAR DISEASE 08/15/18 documented as of this encounter
--- OUTSIDE RECORDS SUMMARY | 2024-08-27 06:54 | XMS_ITS | Encounter Summary ---
Author Organization [facility] Address [address] [place] [address]. [place], [place] [address] [place] [address] Care Team Providers Care Debate Director Name Role Phone Albert Ruby MD Primary Care Provider [phone] Tremayne Shi MD Unavailable [phone] Reason for Visit * Reason Onset Date Comments Appointment Request 06/30/2021 Encounter Details Date Type Department Care Team (Late st Contact Info) Description 06/30/2021 Pivto Message Enc [facility] THREE [facility], [address] [place] [address] Tremayne Shi MD [facility]. Nnamdi [address] [place] [address] RE: Follow Up/Update Social History [...] patient a voicemail and sent her a Pivto message asking her to contact me to schedule a virtual visit. documented in this encounter Plan of Treatment Not on file documented as of this encounter Visit Diagnoses Not on filedocumented in this encounter Additional Health Concerns Assessment Noted Time PHQ-9 Depression Total Score: 8 06/17/20 21 1:36 PM CDT documented as of this encounter Care Teams Debate Director Relationship Specialty Start Date End Date Albert Ruby MD [address] [place] [address] [address] [facility] [place] [address] PCP - General FAMILY PRACTICE 05/16/18 [facility] [address]namdi [address] [place] [address] EP Coke Handling Supervisor CARDIOVASCULAR DISEASE 08/15/18 documented as of this encounter
--- OUTSIDE RECORDS SUMMARY | 2024-08-27 06:54 | XMS_ITS | Encounter Summary ---
Author Organization [facility] Address [address] [place] [address]. [place], [place] [address] [place] [address] Care Team Providers Care Saw Repairer Name Role Phone Albert Ruby MD Primary Care Provider [phone] Tremayne Shi MD Unavailable [phone] Encounter Details Date Type Department Care Team (Late st Contact Info) Description 04/25/2024 Orders Only [facility] Medical Group Family and Sports Medicine - [place] [address] [place] [address] Albert Ruby MD [address] [address] Social History Tobacco Use Types Packs/Day Years [...] A1C 5.7(H) <5.7 % of total Hgb [place] Comment: For someone without known diabetes, [...] change in test platforms from the Telles Custom Tailor Apprentice to the Niurka kulwinder c503 may have shifted HbA1c results compared to historical results. Based on laboratory validation testing conducted at [facility], the Niurka platform relative to the Telles [...] Performing Organization Information: ?Site ID: [place] ?Name: [facility] ?Address: [address] [place] [address] ?Director: Yuli Li us Albert Ruby MD LABORATORY Final Result [facility] [address] [address] * THYROID STIM HORMONE TSH (04/25/2024 1:09 PM CDT) TSH 1.82 mIU/L [facility] Comment: ?Reference Range ?> or = 20 Years ??0.40-4.50 ? Ranges ?First trimester ?0.26-2.66 ?Second trimester ?? 0.55-2.73 ?Third trimester ?0.43-2.91 04/25/2024 1:09 PM CDT 04/25/2024 1:14 PM CDT Narrative [facility] [place] [facility] - 04/26/2024 11:32 AM CDT FASTING:YES FASTING: YES Resulting Agency Comment Performing Organization Information: ?Site ID: HAIM ?Name: [facility] ?Address: [address] [place] [address] [place] [address] ?Director: Yuli Li MD Albert Ruby MD LABORATORY Final Result Performing Organization Address [facility] Co de Phone Number [facility] [id number] [place] [address], * THYROXINE, FREE (FT4) (04/25/2024 1:09 PM CDT) FREE T4 1.4 0.8 - 1.8 ng/dL [facility] 04/25/2024 1:09 PM CDT 04/25/2024 1:14 PM CDT Narrative [facility] [place] [facility] - 04/26/2024 11:32 AM CDT FASTING:YES FASTING: YES Resulting Agency Comment Performing Organization Information: ?Site ID: HAIM ?Name: [facility] ?Address: [address] [place], [place] [address] [address] ?Director: Yuli Li MD Albert Ruby MD LABORATORY Final Result Performing Organization Address [facility] Co de Phone Number [facility] [id number] [place] [address], * TRIIODOTHYRONINE TOTAL , TT-3 (04/25/2024 1:09 PM CDT) T3 TOTAL 126 76 - 181 ng/dL [facility] 04/25/2024 1:09 PM CDT 04/25/2024 1:14 PM CDT Narrative [facility] [place] [facility] - 04/26/2024 11:32 AM CDT FASTING:YES FASTING: YES Resulting Agency Comment Performing Organization Information: ?Site ID: [place] ?Name: [facility] ?Address: [address] [address] ?Director: Yuli Li MD Albert Ruby MD LABORATORY Final Result [facility] [address] [place] [address] * (ABNORMAL) FOLIC ACID SERUM (04/25/2024 1:09 PM CDT) FOLATE 2.9(L) ng/mL [facility] Comment: ? Reference Range ? Low: ? <3.4 ? Borderline: ?3.4-5.4 ? Normal: ?>5.4 04/25/2024 1:09 PM CDT 04/25/2024 1:14 PM CDT Narrative [facility] - 04/26/2024 11:32 AM CDT FASTING:YES FASTING: YES Resulting Agency Comment Performing Organization Information: ?Site ID: [place] ?Name: [facility] ?Address: [address] [address] ?Director: Yuli Li MD Albert Ruby MD LABORATORY Final Result [facility] [address] [place] [address], * HEPATITIS C ANTIBODY W/RFX TO HCV RNA (04/25/2024 1:09 PM CDT) Pathologist [facility] HEPATITIS C AB NON-REACT CARRI NON-REACT CARRI [facility] Comment: HCV antibody was non-reactive. There is no laboratory evidence of HCV infection. In most cases, no further action is required. However, if recent HCV exposure is suspected, a test for HCV RNA (test code 88413) is suggested. For additional information please refer to http://education.ItsGoinOn/faq/BTG94o0 (This link is being provided for informational/ educational purposes only.) 04/25/2024 1:09 PM CDT 04/25/2024 1:14 PM CDT Narrative [facility] - 04/26/2024 11:32 AM CDT FASTING:YES FASTING: YES Resulting Agency Comment Performing Organization Information: ?Site ID: [place] ?Name: [facility] ?Address: [address] [place] [address] ?Director: Yuli Li MD Albert Ruby MD LABORATORY Final Result [facility] - [place] [facility] [address] [place] [address], * (ABNORMAL) C-REACTIVE PROTEIN (04/25/2024 1:09 PM CDT) [facility] C-REACTIVE PROTEIN 42.3(H) <8.0 mg/L [facility] 04/25/2024 1:09 PM CDT 04/25/2024 1:14 PM CDT Narrative [facility] - 04/26/2024 11:32 AM CDT FASTING:YES FASTING: YES Resulting Agency Comment Performing Organization Information: ?Site ID: [place] ?Name: [facility] ?Address: [address] [address] ?Director: Yuli Li MD Albert Ruby MD LABORATORY Final Result [facility] [place] [address] [address], * (ABNORMAL) CBC W/DIFF AUTOMATED (04/25/2024 1:09 [...] Agency Comment Performing Organization Information: ?Site ID: [place] ?Name: [facility] ?Address: [address] [address] ?Director: Yuli Li MD Albert Ruby MD LABORATORY Final Result [facility] [address] [address], * (ABNORMAL) COMPREHENSIVE METABOLIC PANEL (04/25/2024 1:09 PM CDT) [facility] Signature GLUCOSE 111(H) 65 - 99 mg/dL [facility] Comment: ? Fasting reference interval For someone without known diabetes, a glucose value between 100 and 125 mg/dL is consistent with prediabetes and should be confirmed with a follow-up test. BUN 11 7 - 25 mg/dL [facility] CREATININE S/P/B 0.86 0.50 - 0.96 mg/dL [facility] GFR ESTIMATE 97 > OR = 60 mL/min/1. 73m2 [facility] BUN CREATININE RATIO SEE NOTE: (calc) [facility] Comment: ?? Not Reported: BUN and Creatinine are within ?? reference range. ? SODIUM S/P/B 137 135 - 146 mmol/L [facility] POTASSIUM S/P/B 4.1 3.5 - 5.3 mmol/L [facility] CHLORIDE S/P/B 105 98 - 110 mmol/L [facility] CO2 23 20 - 32 mmol/L [facility] CALCIUM S/P/B 9.1 8.6 - 10.2 mg/dL [facility] TOTAL PROTEIN S/P/B 7.1 6.1 - 8.1 g/dL [facility] ALBUMIN S/P/B 3.8 3.6 - 5.1 g/dL [facility] GLOBULIN 3.3 1.9 - 3.7 g/dL (calc) [facility] ALBUMIN/GLOBULI N RATIO 1.2 1.0 - 2.5 (calc) [facility] BILIRUBIN TOTAL S/P/B 0.2 0.2 - 1.2 mg/dL [facility] ALKALINE PHOSPHATASE S/P/B 81 31 - 125 U/L [facility] AST 17 10 - 30 U/L [facility] ALT 20 6 - 29 U/L [facility] [employer] [facility] 04/25/2024 1:09 PM CDT 04/25/2024 1:14 PM CDT Narrative [facility] [place] - 04/26/2024 11:32 AM CDT FASTING:YES FASTING: YES Resulting Agency Comment Performing Organization Information: ?Site ID: [place] ?Name: [facility] ?Address: [address] [facility] [place] [address] ?Director: Yuli Li MD us Albert Ruby MD LABORATORY Final Result [facility] [place] [facility] [address] [facility] [place] [place] [address], * (ABNORMAL) LIPID PANEL (04/25/2024 1:09 PM CDT) CHOLESTEROL 104 <200 mg/dL [facility] HDL 43(L) > OR = 50 mg/dL [facility] TRIGLYCERIDES 67 <150 mg/dL [facility] LDL (CALCULATED) 47 mg/dL (calc) [facility] Comment: Reference range: <100 Desirable range <100 mg/dL for primary prevention; ?? <70 mg/dL for patients with CHD or diabetic patients with > or = 2 CHD risk factors. LDL-C is now calculated using the Kevin-Justice calculation, which is a validated novel method providing better accuracy than the Friedewald equation in the estimation of LDL-C. Kevin SS et al. AMAN. 2013;310(19): 5992-9840 (http://education.SeeVolution.Priori Data/faq/JKL729) CHOL/HDL RATIO 2.4 <5.0 (calc) [facility] NON HDL CHOLESTEROL 61 <130 mg/dL (calc) [facility] Comment: For patients with diabetes plus 1 major ASCVD risk factor, treating to a non-HDL-C goal of <100 mg/dL (LDL-C of <70 mg/dL) is considered a therapeutic option. 04/25/2024 1:09 PM CDT 04/25/2024 1:14 PM CDT Narrative [facility] - 04/26/2024 11:32 AM CDT FASTING:YES FASTING: YES Resulting Agency Comment Performing Organization Information: ?Site ID: [place] ?Name: [facility] ?Address: [address] [facility] [place] [address] ?Director: Yuli Li MD Albert Ruby MD LABORATORY Final Result [facility] [address] [place] [address], documented in this encounter Visit Diagnoses Not on filedocumented in this encounter Additional Health Concerns Assessment Noted Time PHQ-9 Depression Total Score: 4 07/07/20 23 8:53 AM CDT documented as of this encounter Care Teams Saw Repairer Relationship Specialty Start Date End Date Albert Ruby MD [address] [place] [address] [address] [facility] [place] [address] PCP - General FAMILY PRACTICE 05/16/18 Tremayne Shi MD [address] [place] [address] EP Spring Tester CARDIOVASCULAR DISEASE 08/15/18 documented as of this encounter
--- OUTSIDE RECORDS SUMMARY | 2024-08-27 06:54 | XMS_ITS | Encounter Summary ---
Author Organization [facility] Address [address] [place] [address]. [place] [address] Care Team Providers Care Electrical Installation Inspector Name Role Phone Albert Ruby MD Primary Care Provider [phone] Tremayne Shi MD Unavailable [phone] Encounter Details Date Type Department Care Team [...] documented as of this encounter Care Teams Electrical Installation Inspector Relationship Specialty Start Date End Date Albert Ruby MD [address] [place] [address] PCP - General FAMILY PRACTICE 05/16/18 Tremayne Shi MD [address] [facility] [address] [place] [address] EP Canal Equipment Mechanic CARDIOVASCULAR DISEASE 08/15/18 documented as of this encounter
--- OUTSIDE RECORDS SUMMARY | 2024-08-27 06:54 | XMS_ITS | Encounter Summary ---
Author Organization [facility] Address [address] [place] [address]. [place] [address] Care Team Providers Care Instrumentation And Controls Technician Name Role Phone Albert Ruby MD Primary Care Provider [phone] Tremayne Shi MD Unavailable [phone] Encounter Details Date Type Department Care Team [...] Depression Total Score: 10 021 8:11 AM TOWBOAT CAPTAIN documented as of this encounter Care Teams Instrumentation And Controls Technician Relationship Specialty Start Date End Date Albert Ruby MD [address] [facility] [address] [place] [address] PCP - General FAMILY PRACTICE 05/16/18 Tremayne Shi MD Three [facility]. [address] [place] [address] EP Ferryboat Operator Helper CARDIOVASCULAR DISEASE 08/15/18 documented as of this encounter
--- OUTSIDE RECORDS SUMMARY | 2024-08-27 06:54 | XMS_ITS | Encounter Summary ---
Author Organization [facility] Address [address] [place] [address]. [place], [place] [address] [place] [address] Care Team Providers Care Rasper Machine Operator Name Role Phone Albert Ruby MD Primary Care Provider [phone] Tremayne Shi MD Unavailable [phone] Encounter Details Date Type Department Care Team [...] documented as of this encounter Care Teams Rasper Machine Operator Relationship Specialty Start Date End Date Albert Ruby MD [address] [place] [address] [address] [place], [place] [id number] PCP - General FAMILY PRACTICE 05/16/18 Tremayne Shi MD [facility] [address] [place], [place] [address] EP Clinical Team Lead CARDIOVASCULAR DISEASE 08/15/18 documented as of this encounter
--- OUTSIDE RECORDS SUMMARY | 2024-08-27 06:54 | XMS_ITS | Encounter Summary ---
Author Organization [facility] Address Replaced by [facility]. [place], [place] [address] [place] [address] Care Team Providers Care Glue Mill Operator Name Role Phone Albert Ruby MD Primary Care Provider [phone] Tremayne Shi MD Unavailable [phone] Reason for Referral * Surgical (Routine) - New Request Specialty Diagnoses / Procedures Referred By Ines borja Referred To Contact Diagnoses RUQ pain Diarrhea, unspecified type Chronic GERD Procedures Case request operating room: COLONOSCOPY, EGD Velasquez Shipman DO #3 [facility] [address] [place] [address] Phone: tel: fax: Referral ID Status Reason Start Date Expiration Date V isits Requested Visits Authorized [id number] New Request 10/06/2023 10/06/2024 1 1 ARATIVE SOCIOLOGY PROFESSOR Encounter Details Date Type Department Care Team (Late st Contact Info) Description 10/06/2023 Orders Only [facility] Medical Group Multispecialty Care - [facility] [address] [facility] [address] [place] [id number] Velasquez Shipman DO [address] [facility] [facility] [address] [place] [address] Social History Tobacco Use Types Packs/Day Years [...] documented as of this encounter Care Teams Glue Mill Operator Relationship Specialty Start Date End Date Albert Ruby MD [address] [place] [address] [address] [place] [address] PCP - General FAMILY PRACTICE 05/16/18 Tremayne Shi MD [facility]. [address] [place] [address] EP Neurosurgeon CARDIOVASCULAR DISEASE 08/15/18 documented as of this encounter
--- OUTSIDE RECORDS SUMMARY | 2024-08-27 06:54 | XMS_ITS | Encounter Summary ---
Author Organization [facility] Address [address] [place] [address]. [place], [place] [address] [place] [address] Care Team Providers Care Doctor Of Podiatry Name Role Phone Vania Brown MD Primary Care Provider Tremayne Shi MD Unavailable [phone] Reason for Visit * Auth/Cert (Routine) Specialty Diagnoses / Procedures Referred By Ines borja Referred To Contact Diagnoses RUQ pain Diarrhea, unspecified type Chronic GERD chronic GERD,episodic RUQ pain naesea/diarrhea Procedures COLONOSCOPY,DIAGNOSTIC UPPER GI ENDOSCOPY,DIAGNOSIS COLONOSCOPY EGD Eduardo Shipman, DO #3 [facility] [address] [place] [address] Phone: tel: fax: Referral ID Status Reason Start Date Expiration Date Visits Re quested Visits Authorized [id number] 1 1 Encounter Details Date Type Department Care Team (Latest Contact Info) Description 11/15/2023 8:38 AM [facility] - 11/15/2023 12:24 PM [facility] Hospital Encounter [facility] [place], [place] [address] Eduardo Shipman, DO #3 [facility] [address] [place] [address] Discharge Disposition: Home or Self Care (Routine [...] Comments Blood Pressure 119/84 11/15/2023 12:00 PM BUTTONHOLE FACER Pulse 73 11/15/2023 12:00 PM BUTTONHOLE FACER Temperature 36.9 ??C (98.4 ??F) 11/15/2023 11:[address] Respiratory Rate 16 11/15/2023 12:00 PM BUTTONHOLE FACER Oxygen Saturation 99% 11/15/2023 12:00 PM BUTTONHOLE FACER Inhaled Oxygen Concentration - - Weight 135.2 kg (298 lb) 11/02/2023 4:47 PM BUTTONHOLE FACER Height 162.6 cm (5' 4 ) 11/02/2023 4:47 PM BUTTONHOLE FACER Body Mass Index 51.15 11/02/2023 4:47 PM BUTTONHOLE FACER documented in this encounter Discharge Instructions * Discharge Instructions* Elle Brown LPN - 11/15/2023 11:59 AM BUTTONHOLE FACER Recommendations: Call 2 weeks for biopsy report. Follow-up with primary physician. Patient has significant sleep apnea observed during procedure. Antireflux regimen reinforced. Continue esomeprazole. OTC famotidine 20/40 mg at bedtime if needed. May benefit from gastric emptying study. Avoid NSAIDs. Benefiber daily. Verastem or Florastor per label instructions. Low carbohydrate diet, exercise, and weight loss encouraged due to hepatic steatosis. Transaminases should be checked every 6 months. Follow-up with ALFA Piper in office. ONHOLE FACER * Attachments The following attachments cannot be sent through Care Everywhere. * General Anesthesia Discharge Instructions (Northern Irish) * Colonoscopy Discharge Instructions (Northern Irish) * Upper GI Endoscopy Discharge Instructions (Northern Irish) documented in this encounter Medications at Time [...] is in agreement to proceed as planned. ONHOLE FACER documented in this encounter OR Notes * [...] explained in detail to the patient/power of car head liner installer. These were understood, assumed and written consent [...] gastric emptying study. Avoid NSAIDs. Benefiber daily. Hartman Wright colon health or Florastor per label instructions. Low carbohydrate diet, exercise, and weight loss encouraged due to hepatic steatosis. Transaminases should be checked every 6 months. Follow-up with ALFA Piper in office. Anes: MAC Complications: No immediate. Quality Indicators: EBL: <5 mL Prep: Good. Procedure: The benefits, risks, complications and alternatives were explained in detail to the patient/power of car head liner installer. These were understood, assumed and written consent [...] documentation will be obtained. Eduardo Shipman DO ONHOLE FACER ONHOLE FACER documented in this encounter Plan of Treatment Not on file documented as of this encounter Procedures Procedure Name Priority Date/Time Associated Diagnosis Comments COLONOSCOPY Routine 11/15/2023 11:58 AM BUTTONHOLE FACER EGD Routine 11/15/2023 11:58 AM BUTTONHOLE FACER UPPER GI ENDOSCOPY,BIOPSY 11/15/2023 11:15 AM BUTTONHOLE FACER RUQ pain Diarrhea, unspecified type Chronic GERD COLONOSCOPY WITH BIOPSY 11/15/2023 11:15 AM BUTTONHOLE FACER RUQ pain Diarrhea, unspecified type Chronic GERD PROCEDURE GENERIC 11/15/2023 11: 06 AM BUTTONHOLE FACER PATHOLOGY Routine 11/15/2023 12:00 AM BUTTONHOLE FACER documented in this encounter Results * PROCEDURE GENERIC (11/15/2023 11:06 AM BUTTONHOLE FACER) us Eduardo Shipman DO [facility] Final Result * Pathology (11/15/2023 12:00 AM BUTTONHOLE FACER) PATHOLOGY [facility] ? Department of Laboratory Medicine ?[address] [facility] ?[place] [address] ? , extension [phone] ? Pathology Report ? Surgical Pathology Report Name: PRANAY GONZALEZ ?Specimen #: [id number] Age: 1 2000 (Age: 23) ? Location: [facility] Sex: F ?Procedure Date: 11/15/2023 Hospital #: [id number] ?Date Received: 11/15/2023 Date Reported: 11/16/2023 Provider: [...] interpretation, and sign out were performed at [facility], [address] [place] [address]. FINAL DIAGNOSIS: A) STOMACH, BIOPSY: ? - BENIGN GASTRIC MUCOSA. ? - NO HELICOBACTER PYLORI BY H&E. B) COLON, RANDOM BIOPSY: ? - BENIGN COLONIC MUCOSA WITH LYMPHOID AGGREGATES. ? - NO EVIDENCE OF ACUTE OR MICROSCOPIC COLITIS. Electronically Signed Out ? ANTONIETTA VELAZQUEZ MD [facility] TISSUE GASTRIC BIOPSY SPECIMEN / Unknown 11/15/2023 11:29 AM BUTTONHOLE FACER Tissue specimen (specimen) COLON STRUCTURE / Unknown 11/15/2023 11:37 AM BUTTONHOLE FACER us Eduardo Shipman DO PATHOLOGY/CYTOLOGY ORDERABLES F inal Result [facility] [address] [place] [address], [id number] documented in this encounter Visit Diagnoses Diagnosis [...] Pre-Op Continued by Anesthesia 11/15/2023 11:14 AM BUTTONHOLE FACER New Bag 11/15/2023 11:11 AM BUTTONHOLE FACER ondansetron (ZOFRAN) injection 4 mg 4 mg, [...] Recently Administered Medications Times are shown in BUTTONHOLE FACER. Continuous Medication Order 11/13/2023 11/14/2023 11/15/2023 lactated [...] documented as of this encounter Care Teams Doctor Of Podiatry Relationship Specialty Start Date End Date Vania Brown MD [address] [place] [address] [address] [facility] [place] [address] PCP - General FAMILY PRACTICE 05/16/18 Tremayne Shi MD [facility]. [address] [place] [address] EP Peoplesoft Developer CARDIOVASCULAR DISEASE 08/15/18 documented as of this encounter
--- OUTSIDE RECORDS SUMMARY | 2024-08-27 06:54 | XMS_ITS | Encounter Summary ---
Author Organization [facility] Address [address] [place] [address]. [place] [address] [place] [address] Care Team Providers Care Archeology Faculty Member Name Role Phone Albert Ruby MD Primary Care Provider [phone] Tremayne Shi MD Unavailable [phone] Reason for Visit * Reason Onset Date Comments Advice 04/29/2024 Encounter Details Date Type Department Care Team (Late st Contact Info) Description 04/29/2024 Telephone [facility] Medical Group Family and Sports Medicine - [place] [address] [place] [address] Albert Ruby MD 670 [facility] 200 [place] [address] Advice Social History Tobacco Use Types Packs/Day [...] Name of Caller: Laura Call Back Number: [phone] Symptoms/Complaints: bp 160/90's Duration/Onset: since Monday OTC [...] documented as of this encounter Care Teams Archeology Faculty Member Relationship Specialty Start Date End Date Albert Ruby MD [address] [place] [address] 200 [place] [address] PCP - General FAMILY PRACTICE 05/16/18 Tremayne Shi MD [facility]. [address] [place] [address] EP Architectural Model Maker CARDIOVASCULAR DISEASE 08/15/18 documented as of this encounter
--- OUTSIDE RECORDS SUMMARY | 2024-08-27 06:54 | XMS_ITS | Encounter Summary ---
Author Organization [facility] Address [address] [place] [address]. [place], [place] [address] [place] [address] Care Team Providers Care Android Ios Developer Name Role Phone Albert Ruby MD Primary Care Provider [phone] Tremayne Shi MD Unavailable [phone] Encounter Details Date Type Department Care Team (Late st Contact Info) Description 02/16/2021 [place] Message Enc [facility] Medical Group Family and Sports Medicine - [place] [address] [place] [address] Albert Ruby MD [address] [address] RE: Referral Request Social History Tobacco Use [...] Depression Total Score: 10 021 8:11 AM ART THERAPY SPECIALIST documented as of this encounter Care Teams Android Ios Developer Relationship Specialty Start Date End Date Albert Ruby MD [address] [facility] [address] [place] [address] PCP - General FAMILY PRACTICE 05/16/18 Tremayne Shi MD [facility] [address] [place] [address] EP Ordnance Engineering Technician CARDIOVASCULAR DISEASE 08/15/18 documented as of this encounter
--- OUTSIDE RECORDS SUMMARY | 2024-08-27 06:54 | XMS_ITS | Encounter Summary ---
Author Organization [facility] Address [address] [place] [address]. [place] [address] [place] [address] Care Team Providers Care Furniture Shampooer Name Role Phone Albert Brown MD Primary Care Provider [phone] Tremayne Shi MD Unavailable [phone] Reason for Visit * Reason Onset Date Comments Medication 05/09/2024 Encounter Details Date Type Department Care Team (Late st Contact Info) Description 05/09/2024 Telephone [facility] Medical Group Family and Sports Medicine - [place] [address] [place] [address] Albert Brown MD 670 [facility] 200 [place] [address] Medication Social History Tobacco Use Types Packs/Day [...] like this sent to the following pharmacy: [facility] [phone] The next office visit: Next visit with ALBERT BROWN in FAMILY PRACTICE is on: 06/05/2024 in [facility] The last office visit: Last visit with ALBERT BROWN in FAMILY PRACTICE was on: 05/01/2024 in [facility] documented in this encounter Plan of Treatment Not on file documented as of this encounter Visit Diagnoses Diagnosis Obesity, diabetes, and hypertension syndrome ([facility]/HCC) Type II or unspecified type diabetes mellitus without mention of complication, not stated as uncontrolled Prediabetes Other abnormal glucose Morbid obesity with BMI of 50.0-59.9, adult ([facility] HHS/HCC) Morbid obesity documented in this encounter Additional Health Concerns Assessment Noted Time PHQ-9 Depression Total Score: 3 05/01/20 24 9:25 AM CDT documented as of this encounter Care Teams Furniture Shampooer Relationship Specialty Start Date End Date Albert Brown MD [address] [place] [address] [address] [place] [address] PCP - General FAMILY PRACTICE 05/16/18 Tremayne Shi MD [facility]. [address] [place] [address] EP Mainframe Programmer CARDIOVASCULAR DISEASE 08/15/18 documented as of this encounter
--- OUTSIDE RECORDS SUMMARY | 2024-08-27 06:54 | XMS_ITS | Encounter Summary ---
Author Organization [facility] Address [facility]. [place], [place] [address] [place] [address] Care Team Providers Care Corner Former Name Role Phone Albert Ruby MD Primary Care Provider [phone] Tremayne Shi MD Unavailable [phone] Reason for Referral * Consultation (Routine) - Closed Specialty Diagnoses / Procedures Referred By Ines borja Referred To Contact GASTROENTEROLOGY Diagnoses Gastroesophageal reflux disease without esophagitis Albert Ruby MD [address] [facility] [address] [place] [address] Phone: tel: fax: [facility] Multispecialty Care - [facility] [address] [facility] [address] [place] [address] Phone: tel: fax: Referral ID Status Reason Start Date Expiration Date Visits Re quested Visits Authorized [id number] Closed 06/09/2023 06/09/2024 99 99 Encounter Details Date Type Department Care Team (Late st Contact Info) Description 06/09/2023 MyChart Message Enc [facility] Medical Group Family and Sports Medicine - [place] [address] [place] [address] Albert Ruby MD [address] [place] [address] Referral for GI Social History Tobacco Use [...] documented as of this encounter Care Teams Corner Former Relationship Specialty Start Date End Date Albert Ruby MD [address] [facility] [address] [place] [address] PCP - General FAMILY PRACTICE 05/16/18 Tremayne Shi MD Three [facility]. [address] [id number] EP Marketing Pr Intern CARDIOVASCULAR DISEASE 08/15/18 documented as of this encounter
--- OUTSIDE RECORDS SUMMARY | 2024-08-27 06:54 | XMS_ITS | Encounter Summary ---
Author Organization [facility] Address [address] [place] [address]. [place] [address] [place] [address] Care Team Providers Care Timber Sprinkler Name Role Phone Albert Ruby MD Primary Care Provider [phone] Tremayne Shi MD Unavailable [phone] Reason for Visit * Reason Onset Date Comments Refill Request 07/01/2022 Encounter Details Date Type Department Care Team (Late st Contact Info) Description 07/01/2022 Telephone [facility] Medical Group Family and Sports Medicine - [place] [address] [place] [address] Albert Ruby MD [address] [facility] 200 [place] [address] Refill Request Social History Tobacco Use Types [...] called & requested rx be sent to [facility] [phone] Please call patient with any questions [phone] documented in this encounter Plan of Treatment Not on file documented as of this encounter Visit Diagnoses Diagnosis Anxiety Anxiety state, unspecified Palpitations documented in this encounter Additional Health Concerns Assessment Noted Time PHQ-9 Depression Total Score: 11 022 11:44 AM CDT documented as of this encounter Care Teams Timber Sprinkler Relationship Specialty Start Date End Date Albert Ruby MD [address] [place] [address] [address] [facility] [address] PCP - General FAMILY PRACTICE 05/16/18 Tremay[facility] Shi MD [facility] [address] [place] [address] EP Commissary Manager CARDIOVASCULAR DISEASE 08/15/18 documented as of this encounter
--- OUTSIDE RECORDS SUMMARY | 2024-08-27 06:54 | XMS_ITS | Encounter Summary ---
Author Organization [facility] Address [address] [place] [address]. [place], [place] [address] [place] [address] Care Team Providers Care Makeup Sales Advisor Name Role Phone Albert Ruby MD Primary Care Provider [phone] Tremayne Shi MD Unavailable [phone] Reason for Visit * Reason Onset Date Comments Prior Authorization 10/20/2023 Colonoscopy- [id number] Encounter Details Date Type Department Care Team (Late st Contact Info) Description 10/20/2023 Telephone [facility] Medical Group Multispecialty Care - [facility] 3 [facility], [address] [place] [address] Velasquez Shipman, [address] [facility] [address] [place] [address] Prior Authorization (Colonoscopy-84241/EGD- 76427) Social History Tobacco Use Types Packs/Day Years [...] informed that no PA is required for colonoscopy(80129) and EGD (07657) scheduled on 11/15/2023. Also checked [facility] BCBS and carelon stated no PA was required. E WINDER documented in this encounter Plan of Treatment Not on file documented as of this encounter Visit Diagnoses Not on filedocumented in this encounter Additional Health Concerns Assessment Noted Time PHQ-9 Depression Total Score: 4 07/07/20 23 8:53 AM CDT documented as of this encounter Care Teams Makeup Sales Advisor Relationship Specialty Start Date End Date Albert Ruby MD [address] [place] [address] [address] [facility] [place] [address] PCP - General FAMILY PRACTICE 05/16/18 Tremayne Shi MD Three [facility]. [address] [place] [address] EP Investigation Clerk CARDIOVASCULAR DISEASE 08/15/18 documented as of this encounter
--- OUTSIDE RECORDS SUMMARY | 2024-08-27 06:55 | XMS_ITS | Encounter Summary ---
Author Organization [facility] Address [address] [place] [address]. [place], [place] [address] [place] [address] Care Team Providers Care Help Desk Support Name Role Phone Albert Ruby MD Primary Care Provider [phone] Encounter Details Date Type Department Care Team (Latest Contact Info) Description 07/17/2018 Scan [facility] Medical Group Andreas Alanis MD Social History [...] on filedocumented in this encounter Care Teams Help Desk Support Relationship Specialty Start Date End Date Albert Ruby MD [address] [place] [address] PCP - General FAMILY PRACTICE 05/16/18 documented as of this encounter
--- OUTSIDE RECORDS SUMMARY | 2024-08-27 06:55 | XMS_ITS | Encounter Summary ---
Author Organization [facility] Address [address] [place] [address]. [place], [place] [address] [place] [address] Care Team Providers Care Outside Installer Apprentice Name Role Phone Albert Ruby MD Primary Care Provider [phone] Tremayne Shi MD Unavailable [phone] Reason for Referral * Imaging (Routine) - Closed Specialty Diagnoses / Procedures Referred By Contac t Referred To Contact RADIOLOGY Diagnoses Gall bladder disease Procedures NM HEPATOBILIARY SCAN W/GB EJECTION FRACTION Albert Ruby MD [address] [employer] [address] [place] [address] Phone: tel: fax: Referral ID Status Reason Start Date Expiration Date Visits Re quested Visits Authorized [id number] Closed 05/25/2020 11/22/2020 1 1 ING MACHINE TOOL SETTER Reason for Visit * Imaging (Routine) - Closed Specialty Diagnoses / Procedures Referred By Ines borja Referred To Contact RADIOLOGY Diagnoses Gall bladder disease Procedures NM HEPATOBILIARY SCAN W/GB EJECTION FRACTION Albert Ruby MD [address] [place] [address] Phone: tel: fax: Referral ID Status Reason Start Date Expiration Date Visits Re quested Visits Authorized [id number] Closed 05/25/2020 11/22/2020 1 1 Encounter Details Date Type Department Care Team (Latest Contact Info) Description 08/03/2020 7:59 AM LOADING MACHINE TOOL SETTER - 08/03/2020 11:59 PM LOADING MACHINE TOOL SETTER Hospital Encounter [facility] Nuclear [place] [address] Albert Ruby MD [address]70 [facility] 200 [place] [address] Discharge Disposition: Home or Self Care (Routine [...] COVID-19? No / Unsure 08/02/2020 8:32 PM LOADING MACHINE TOOL SETTER documented as of this encounter Medications at [...] W/GB EJECTION FRACTION Routine 08/03/2020 10:27 AM LOADING MACHINE TOOL SETTER Gall bladder disease documented in this encounter Results * NM HEPATOBILIARY SCAN W/GB EJECTION FRACTION (08/03/2020 10:27 AM LOADING MACHINE TOOL SETTER) Anatomical Region Laterality Modality Abdomen Nuclear Medicine 08/03/2020 10:5 6 AM LOADING MACHINE TOOL SETTER Impressions 08/03/2020 11:01 AM LOADING MACHINE TOOL SETTER IMPRESSION: ?? 1. ??Normal contractile response of the gallbladder to a fat-containing liquid meal. 2. ??Normal biliary imaging study. Narrative 08/03/2020 11:01 AM LOADING MACHINE TOOL SETTER EXAMINATION: ??HEPATOBILIARY SCINTIGRAPHY (WITH GALLBLADDER EJECTION FRACTION) [...] Mon08/03/20 at 1028 Given 08/03/2020 10:28 AM LOADING MACHINE TOOL SETTER 5 millicuries Right Arm documented in this encounter Additional Health Concerns Assessment Noted Time PHQ-9 Depression Total Score: 9 08/05/20 19 9:19 AM LOADING MACHINE TOOL SETTER documented as of this encounter Care Teams Outside Installer Apprentice Relationship Specialty Start Date End Date Albert Ruby MD [address] [place] [address] 200 [place] [address] PCP - General FAMILY PRACTICE 05/16/18 [facility]rem[facility] Shi [facility] [address] [place], [place] [id number] EP Manager Strategy & Account CARDIOVASCULAR DISEASE 08/15/18 documented as of this encounter
--- OUTSIDE RECORDS SUMMARY | 2024-08-27 06:55 | XMS_ITS | Encounter Summary ---
Author Organization [facility] Address [address] [place] [address]. [place], [place] [address] [place] [address] Care Team Providers Care Candy Cooker Helper Name Role Phone Albert Brown MD Primary Care Provider [phone] Tremayne Shi MD Unavailable [phone] Reason for Visit * Reason Comments Tachycardia establish care Encounter Details Date Type Department Care Team (Late st Contact Info) Description 08/23/2018 10:30 AM MAINTENANCE EQUIPMENT OPERATOR Office Visit [facility] at [facility], [facility] [address] [place] [address] Tremayne Shi MD [facility]. [facility] [address] [place] [address] Tachycardia (establish care ) Social [...] Comments Blood Pressure 126/80 08/23/2018 10:41 AM MAINTENANCE EQUIPMENT OPERATOR Pulse 116 08/23/2018 10:41 AM MAINTENANCE EQUIPMENT OPERATOR Temperature - - Respiratory Rate - - Oxygen Saturation 99% 08/23/2018 10:41 AM MAINTENANCE EQUIPMENT OPERATOR Inhaled Oxygen Concentration - - Weight 114.3 kg (252 lb) 08/23/2018 10:41 AM MAINTENANCE EQUIPMENT OPERATOR Height 162.6 cm (5' 4 ) 08/23/2018 10:41 AM MAINTENANCE EQUIPMENT OPERATOR Body Mass Index 43.26 08/23/2018 10:41 AM MAINTENANCE EQUIPMENT OPERATOR Body Mass Index Percentile 99.50% 08/23/2018 10: 41 AM MAINTENANCE EQUIPMENT OPERATOR Growth Chart: [facility] (Girls, 2- 20 Years) documented in this encounter Patient Instructions * Patient Instructions* Shirley Cortes - 08/23/2018 10:30 AM MAINTENANCE EQUIPMENT OPERATOR Images from the original note were not included. Patient Education Patient Education Tachycardia The Basics Written by the doctors and editors at [facility] What is tachycardia???--?? Tachycardia [...] process is complete. This topic retrieved from MailPix on: Sep 14, 2017. Topic 50049 Version 8.0 Release: 25.6.2-122 - C26.3 ?2018??[employer]. and/or its affiliates.??All rights reserved. figure 1: Person having an ECG This drawing shows a man having an ECG (also called an electrocardiogram or EKG). He has patches, called electrodes, stuck onto his chest, arms, and legs. Wires run from the electrodes to the ECG machine. An ECG measures the electrical activity in the heart. Graphic 25719 Version 2.0 Consumer Information Use and Disclaimer [...] that is right for you.The use of MailPix content is governed by the MailPix Terms of Use. ??2018 [employer]. All rights reserved. Copyright ?2018??A[employer]ary. and/or its affiliates.??All rights reserved. TENANCE EQUIPMENT OPERATOR documented in this encounter Progress Notes * Tremayne Shi MD - 08/23/2018 10:30 AM CST Images from the original note were not included. [place], [place] [address] Cardiac Electrophysiology History and Physical Examination Patient name: Laura Finley Referring Provider: Ezio Primary Cake Winder: SHANIKA Tan Primary Care Provider: ALBERT BROWN MD Reason for referral: Palpitations Chief Complaint: Palpitations History of Present Illness Laura Finley is a 17-year-old female with a history of obesity, syncope referred for evaluation of palpitations. She was previously seen in [place] by Dr. Ramirez for the same issue. [...] poorly. She wore a prior Hol[place] in [place] which her average heart rate was 89. [...] with metoprolol, also could consider loop for termite treater helper symptom monitoring if recurrent presyncope/syncope. Follow up in one month before she returns to college in [place] to re-assess symptoms. History Review of Systems [...] Most symptoms correlated with sinus rhythm. Tremayne Shi MD [facility] Cardiac Electrophysiology ; ext. [phone] Pager: [phone] 08/23/2018 10:43 AM TENANCE EQUIPMENT OPERATOR documented in this encounter Plan of [...] type documented in this encounter Care Teams Candy Cooker Helper Relationship Specialty Start Date End Date Albert Brown MD [address] [place] [address] [address] [place] [address] PCP - General FAMILY PRACTICE 05/16/18 Tremayne Shi MD [facility] [place] [address] EP Cake Winder CARDIOVASCULAR DISEASE 08/15/18 documented as of this encounter
--- OUTSIDE RECORDS SUMMARY | 2024-08-27 06:55 | XMS_ITS | Encounter Summary ---
Author Organization [facility] Address [address] [place] [address]. [place] [address] Care Team Providers Care Insurance Salesman Name Role Phone Albert Ruby MD Primary Care Provider [phone] Tremayne Shi MD Unavailable [phone] Encounter Details Date Type Department Care Team [...] Total Score: 9 08/05/20 19 9:19 AM DOCUMENT CONTROL MANAGER documented as of this encounter Care Teams Insurance Salesman Relationship Specialty Start Date End Date Albert Ruby MD [address] [place] [address] PCP - General FAMILY PRACTICE 05/16/18 Tremayne Shi MD [address] [place] [address] EP Applied Exercise Physiologist CARDIOVASCULAR DISEASE 08/15/18 documented as of this encounter
--- OUTSIDE RECORDS SUMMARY | 2024-08-27 06:55 | XMS_ITS | Encounter Summary ---
Author Organization [facility] Address [address] [place] [address]. [place], [place] [address] [place] [address] Care Team Providers Care Roof Foreman Name Role Phone Albert Ruby MD Primary Care Provider [phone] Reason for Visit * Reason Onset Date Comments Results 06/18/2018 Holter Encounter Details Date Type Department Care Team (Late st Contact Info) Description 06/18/2018 [facility] [address] [place] [address] Rimma Ramirez MD Results (Holter) [...] on filedocumented in this encounter Care Teams Roof Foreman Relationship Specialty Start Date End Date Albert Ruby MD [address] [address] PCP - General FAMILY PRACTICE 05/16/18 documented as of this encounter
--- OUTSIDE RECORDS SUMMARY | 2024-08-27 06:55 | XMS_ITS | Encounter Summary ---
Author Organization [facility] Address [address] [place] [address]. [place], [place] [address] [place] [address] Care Team Providers Care Shoe Stitcher Odd Name Role Phone Vania Brown MD Primary Care Provider [phone] Izaguirre MD Unavailable [phone] Reason for Visit * Reason Comments Tachycardia 2 mo folow up Palpitations Encounter Details Date Type Department Care Team (Late st Contact Info) Description 08/06/2019 10:00 AM OPEN HEARTH FURNACE OPERATOR Office Visit [facility] at [facility], [facility] [address] [place] [address] Bailey Izaguirre MD [facility]. [facility] [address] [place], [place] [phone] Tachycardia (2 mo folow up); Palpitations Social [...] Comments Blood Pressure 128/80 08/06/2019 9:42 AM OPEN HEARTH FURNACE OPERATOR Pulse 85 08/06/2019 9:42 AM OPEN HEARTH FURNACE OPERATOR Temperature - - Respiratory Rate - - Oxygen Saturation 99% 08/06/2019 9:42 AM OPEN HEARTH FURNACE OPERATOR Inhaled Oxygen Concentration - - Weight 116.1 kg (256 lb) 08/06/2019 9:42 AM OPEN HEARTH FURNACE OPERATOR Height 162.6 cm (5' 4 ) 08/06/2019 9:42 AM OPEN HEARTH FURNACE OPERATOR Body Mass Index 43.94 08/06/2019 9:42 AM OPEN HEARTH FURNACE OPERATOR documented in this encounter Patient Instructions * Patient Instructions* Shirley Cortes - 08/06/2019 10:00 AM OPEN HEARTH FURNACE OPERATOR Images from the original note were [...] process is complete. This topic retrieved from Aircuity on: Apr 24, 2019. Topic 24935 Version 12.0 Release: 27.3.2 - C27.227 ?2019??Voter [employer]ity. and/or its affiliates.??All rights reserved. figure 1: Person having an ECG This drawing shows a man having an ECG (also called an electrocardiogram or EKG). He has patches, called electrodes, stuck onto his chest, arms, and legs. Wires run from the electrodes to the ECG machine. An ECG measures the electrical activity in the heart. Graphic 28816 Version 2.0 Consumer Information Use and Disclaimer [...] that is right for you.The use of A[employer]uity content is governed by the Aircuity Terms of Use. ??2019 [employer]. All rights reserved. Copyright ?2019??[employer]. and/or its affiliates.??All rights reserved. HEARTH FURNACE OPERATOR documented in this encounter Progress Notes * Bailey Izaguirre MD - 08/06/2019 10:00 AM CST Images from the original note were not included. [place], [place] [address] Cardiac Electrophysiology Outpatient Progress Note Patient name: [...] [facility] ; ext. [phone] Pager: [phone] 08/06/2019 10:04 AM HEARTH FURNACE OPERATOR documented in this encounter Plan of Treatment Not on file documented as of this encounter Procedures Procedure Name Priority Date/Time Associated Diagnosis Comments ELECTROCARDIOGRAM (NON MIDMARK ACQUIRED) Routine 08/06/2019 9:46 AM OPEN HEARTH FURNACE OPERATOR Inappropriate sinus node tachycardia documented in this encounter Results * ELECTROCARDIOGRAM (08/06/2019 9:46 AM OPEN HEARTH FURNACE OPERATOR) 08/06/2019 9:46 AM OPEN HEARTH FURNACE OPERATOR Narrative [facility] - 08/06/2019 10:33 PM OPEN HEARTH FURNACE OPERATOR ?[facility], O? [place] ? Test Date: ?2019-08-06 Pat Name: ? PRANAY GONZALEZ ?Department: ? Room: ? Gender: ? Female ? Fuel Cell Battery Technician: ?? rk : ?2000 ? Requested By: BAILEY IZAGUIRRE Order Number: [id number] ?Reading MD: ?? Bailey Jose Guadalupe ? Measurements Intervals ?Leupp ? Rate: ? 87 ? P: ?9 ME: ? 141 ?QRS: ?42 QRSD: ? 101 ?T: ?-23 QT: ? 352 ? QTc: ?425 ? Interpretive Statements SINUS RHYTHM NONSPECIFIC T-WAVE ABNORMALITY HEARTH FURNACE OPERATOR Procedure Note Bailey Izaguirre MD - 08/06/2019 [facility], O? [facility] Test Date: 2019-08-06 Pat Name: PRANAY GONZALEZ Department: Room: Gender: Female Fuel Cell Battery Technician: jesus : 2000 Requested By: BAILEY IZAGUIRRE Order Number: [id number] Reading MD: Bailey Izaguirre Measurements Intervals Leupp Rate: 87 P: 9 ME: 141 QRS: 42 QRSD: 101 T: -23 QT: 352 QTc: 425 Interpretive Statements SINUS RHYTHM NONSPECIFIC T-WAVE ABNORMALITY HEARTH FURNACE OPERATOR us Bailey Izaguirre MD PROCEDURES-ORDERABLE NO SUDHA RGE Final Result Performing Organization Address City/State/[facility] Co de Phone Number [facility] [address] [place] [address] documented in this encounter Visit Diagnoses Diagnosis Inappropriate sinus node tachycardia (CMS/HCC HHS/HCC)- Primary Other specified cardiac dysrhythmias Vasovagal syncope Syncope and collapse documented in this encounter Additional Health Concerns Assessment Noted Time PHQ-9 Depression Total Score: 9 08/05/20 19 9:19 AM OPEN HEARTH FURNACE OPERATOR documented as of this encounter Care Teams Shoe Stitcher Odd Relationship Specialty Start Date End Date Vania Brown MD [address] [facility] [address] [place] [address] PCP - General FAMILY PRACTICE 05/16/18 Bailey Izaguirre MD Three [facility] [place], [place] [address] EP Padded Products Finisher CARDIOVASCULAR DISEASE 08/15/18 documented as of this encounter
--- OUTSIDE RECORDS SUMMARY | 2024-08-27 06:55 | XMS_ITS | Encounter Summary ---
Author Organization [facility] Address [address] [place] [address]. [place], [place] [address] [place] [address] Care Team Providers Care Hydraulic Governor Assembler Name Role Phone Albert Brown MD Primary Care Provider [phone] Tremayne Shi MD Unavailable [phone] Reason for Visit * Reason Comments Syncope needs refills Palpitations Encounter Details Date Type Department Care Team (Late st Contact Info) Description 05/19/2020 10:30 AM CDT Office Visit [facility] at [facility], [facility] [address] [place], [place] [phone] Tremayne Shi MD [facility]. [facility] [address] [place], [place] [phone] Syncope (needs refills ); Palpitations Social History [...] COVID-19? No / Unsure 08/02/2020 8:32 PM HYDROGENATION STILL OPERATOR documented as of this encounter Last Filed [...] or heartburn Where can I learn more? [employer] http://familydoctor.org/familydoctor/en/diseases-conditions/heart-palpitations/c cspjh-zfnf-oxecjci.html Better Health Channel https://www.betterhealth.[place].gov.au/health/conditionsandtreatments/heart-arrhyth glpr-vqv-evbkiabyxiti NHS Choices http://www.nhs.uk/conditions/Heart-palpitations/Pages/Introduction.aspx Last Reviewed Date 2019-12-05 [...] right for you. Copyright Copyright ?? 2020 MongoHQ. and its affiliates and/or licensors. All rights reserved. documented in this encounter Progress Notes * Tremayne Shi MD - 05/19/2020 10:30 AM CDT Images from the original note were not included. [place], [place] [address] Cardiac Electrophysiology Outpatient Progress Note Patient name: [...] this therapy. Recently seen in ED in [place] on 05/12/20 for tachycardia. Assessment and Plan [...] 1 L/min Physical Exam: In general, Mrs. Finely laying on the examination table in no [...] and function EKG: ST Tremayne Shi MD [facility] Cardiac Electrophysiology ; ext. [phone] Pager: [phone] 05/19/2020 10:55 AM OGENATION STILL OPERATOR documented in this encounter Plan of Treatment Not on file documented as of this encounter Visit Diagnoses Diagnosis Inappropriate sinus tachycardia ([facility]/HCC [facility]/HCC)- Primary Other specified cardiac dysrhythmias Palpitations documented in this encounter Additional Health Concerns Assessment Noted Time PHQ-9 Depression Total Score: 9 08/05/20 19 9:19 AM HYDROGENATION STILL OPERATOR documented as of this encounter Care Teams Hydraulic Governor Assembler Relationship Specialty Start Date End Date Albert Brown MD [address] [facility] [address] [place] [address] PCP - General FAMILY PRACTICE 05/16/18 Tremayne Shi MD [facility]. [facility] [address] [place] [address] EP Fringe Maker CARDIOVASCULAR DISEASE 08/15/18 documented as of this encounter
--- OUTSIDE RECORDS SUMMARY | 2024-08-27 06:55 | XMS_ITS | Encounter Summary ---
Author Organization [facility] Address [address] [place] [address]. [place], [place] [address] [place] [address] Care Team Providers Care Global Supply Chain Vice President Name Role Phone Albert Brown MD Primary Care Provider [phone] Tremayne Shi MD Unavailable [phone] Reason for Visit * Reason Comments Dizziness 3 wk f/u Tachycardia Encounter Details Date Type Department Care Team (Late st Contact Info) Description 09/13/2018 9:30 AM BUSHWALKING GUIDE Office Visit [facility] at [facility], [facility] [address] [place] [address] Tremayne Shi MD [facility]. [facility] [address] [place], [place] [phone] Dizziness (3 wk f/u); Tachycardia Social History [...] Comments Blood Pressure 140/84 09/13/2018 9:17 AM BUSHWALKING GUIDE Pulse 136 09/13/2018 9:17 AM BUSHWALKING GUIDE Temperature - - Respiratory Rate - - Oxygen Saturation 98% 09/13/2018 9:17 AM BUSHWALKING GUIDE Inhaled Oxygen Concentration - - Weight 117.5 kg (259 lb) 09/13/2018 9:17 AM BUSHWALKING GUIDE Height 162.6 cm (5' 4 ) 09/13/2018 9:17 AM BUSHWALKING GUIDE Body Mass Index 44.46 09/13/2018 9:17 AM BUSHWALKING GUIDE documented in this encounter Patient Instructions * Patient Instructions* Shirley Cortes - 09/13/2018 9:30 AM BUSHWALKING GUIDE Images from the original note were not included. Patient Education Patient Education Tachycardia The Basics Written by the doctors and editors at [facility] What is tachycardia???--?? Tachycardia is [...] process is complete. This topic retrieved from GeoGRAFI on: Jun 22, 2018. Topic 06833 Version 10.0 Release: 26.4.7 - C26.268 ?2018??[employer]. and/or its affiliates.??All rights reserved. figure 1: Person having an ECG This drawing shows a man having an ECG (also called an electrocardiogram or EKG). He has patches, called electrodes, stuck onto his chest, arms, and legs. Wires run from the electrodes to the ECG machine. An ECG measures the electrical activity in the heart. Graphic 45902 Version 2.0 Consumer Information Use and Disclaimer [...] that is right for you.The use of GeoGRAFI content is governed by the GeoG[employer]FI Terms of Use. ??2018 [employer]. All rights reserved. Copyright ?2018??[employer]. and/or its affiliates.??All rights reserved. WALKING GUIDE documented in this encounter Progress Notes * Tremayne Shi MD - 09/13/2018 9:30 AM CST Images from the original note were not included. [place], [place] [address] Cardiac Electrophysiology Outpatient Progress Note Patient name: Laura Finley Primary Care Provider: ALBERT BROWN MD Reason for referral: palpitations/syncope Chief Complaint: Palpitations History of Present Illness Laura Finley is a 18-year-old female with a history of obesity, syncope referred for evaluation of palpitations. She was seen by me initially in clinic on 08/23/18. 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 [place] [address] EP Bookmaker'S Clerk CARDIOVASCULAR DISEASE 08/15/18 documented as of this encounter
--- OUTSIDE RECORDS SUMMARY | 2024-08-27 06:55 | XMS_ITS | Encounter Summary ---
Author Organization [facility] Address [address] [place] [address]. [place], [place] [address] [place] [address] Care Team Providers Care Scrap Baller Name Role Phone Albert Ruby MD Primary Care Provider [phone] Tremayne Shi MD Unavailable [phone] Reason for Visit * Reason Onset Date Comments Orders 06/04/2019 Corlanor non for mulary per Dr. Shi start Diltiazem XT 180 QD Encounter Details Date Type Department Care Team (Late st Contact Info) Description 06/04/2019 Telephone [facility] at [facility], [facility] [address] [place] [address] Tremayne Shi MD [facility]. [address] [place] [address] Orders (Corlanor non formulary per [...] on filedocumented in this encounter Care Teams Scrap Baller Relationship Specialty Start Date End Date Albert Ruby MD [address] [place] [address] PCP - General FAMILY PRACTICE 05/16/18 Tremayne Shi MD Three [facility]. [facility] [address] [place] [address] EP Coil Winder Repair CARDIOVASCULAR DISEASE 08/15/18 documented as of this encounter
--- OUTSIDE RECORDS SUMMARY | 2024-08-27 06:55 | XMS_ITS | Encounter Summary ---
Author Organization [facility] Address [address] [place] [address]. [place] [address] [place] [address] Care Team Providers Care Finance Lecturer Name Role Phone Albert Ruby MD Primary Care Provider [phone] Tremayne Shi MD Unavailable [phone] Reason for Visit * Reason Onset Date Comments Pre-visit Gap Closure 05/14/2020 Encounter Details Date Type Department Care Team (Late st Contact Info) Description 05/14/[address] [facility] - [place] [address] [place] [address] Albert Ruby MD [address] [facility] [address] [place] [address] Pre-visit Gap Closure Social History Tobacco Use [...] Standard Work Program. My direct extension is [phone]. You can also reach me at: [phone] (HERON) OR [phone] (SHANICE) documented in this encounter Plan of Treatment Not on file documented as of this encounter Visit Diagnoses Not on filedocumented in this encounter Additional Health Concerns Assessment Noted Time PHQ-9 Depression Total Score: 9 08/05/20 19 9:19 AM CITY CONTROLLER documented as of this encounter Care Teams Finance Lecturer Relationship Specialty Start Date End Date Albert Ruby MD [address] [facility] [address] [place], [place] [address] PCP - General FAMILY PRACTICE 05/16/18 Tremayne Shi MD [facility] [address] [place], [place] [address] EP Developing Machine Operator CARDIOVASCULAR DISEASE 08/15/18 documented as of this encounter
--- OUTSIDE RECORDS SUMMARY | 2024-08-27 06:55 | XMS_ITS | Encounter Summary ---
Author Organization [facility] Address [address] [place] [address]. [place], [place] [address] [place] [address] Care Team Providers Care Fashion Marketer Name Role Phone Albert Ruby MD Primary Care Provider [phone] Tremayne Shi MD Unavailable [phone] Encounter Details Date Type Department Care Team (Late st Contact Info) Description 05/21/2020 Scan [facility] at [facility], [address] [address] Scanned, Documents Social History Tobacco Use Types [...] Total Score: 9 08/05/20 19 9:19 AM LAWN CARE WORKER documented as of this encounter Care Teams Fashion Marketer Relationship Specialty Start Date End Date Albert Ruby MD [address] [facility] [address] [place] [address] PCP - General FAMILY PRACTICE 05/16/18 Tremayne Shi MD [facility] [address] [place], [place] [address] EP Risk Manager CARDIOVASCULAR DISEASE 08/15/18 documented as of this encounter
--- OUTSIDE RECORDS SUMMARY | 2024-08-27 06:55 | XMS_ITS | Encounter Summary ---
Author Organization [facility] Address [address] [place] [address]. [place], [place] [address] [place] [address] Care Team Providers Care Emergency Communications Operator Name Role Phone Albert Brown MD Primary Care Provider [phone] Tremayne Shi MD Unavailable [phone] Reason for Visit * Reason Comments Physical wants to be on oral control Encounter Details Date Type Department Care Team (Late st Contact Info) Description 01/30/2019 9:40 AM CDT Office Visit [facility] Family and Sports Medicine - [place] [address] [place] [address] Albert Brown MD 670 [facility] 200 [place] [address] Physical (wants to be on oral control) [...] were not included. Primary and Specialty Care [place] Chief Complaint:: Physical (wants to be on [...] file Gets together: Not on file Attends uatsdin service: Not on file Active member of [...] management documented in this encounter Care Teams Emergency Communications Operator Relationship Specialty Start Date End Date Albert Brown MD [address] [place] [address] [address] [facility] [place] [address] PCP - General FAMILY PRACTICE 05/16/18 Tremayne Shi MD [facility]. [address] [place], [place] [id number] EP Transportation Engineer CARDIOVASCULAR DISEASE 08/15/18 documented as of this encounter
--- OUTSIDE RECORDS SUMMARY | 2024-08-27 06:55 | XMS_ITS | Encounter Summary ---
Author Organization [facility] Address [address] [place] [address]. [place], [place] [address] [place] [address] Care Team Providers Care Dredge Captain Name Role Phone Albert Ruby MD Primary Care Provider [phone] Tremayne Shi MD Unavailable [phone] Encounter Details Date Type Department Care Team (Late st Contact Info) Description 11/16/2020 Orders Only [facility] [place] [address] Carrington Murray MD Social History Tobacco Use [...] COVID-19? No / Unsure 11/17/2020 10:06 AM ERP DEVELOPER documented as of this encounter Plan of Treatment Not on file documented as of this encounter Visit Diagnoses Not on filedocumented in this encounter Additional Health Concerns Assessment Noted Time PHQ-9 Depression Total Score: 10 11/13/ 021 8:11 AM ERP DEVELOPER documented as of this encounter Care Teams Dredge Captain Relationship Specialty Start Date End Date Albert Ruby MD [address] [facility] [address] [place] [address] PCP - General FAMILY PRACTICE 05/16/18 Tremayne Shi MD [facility] [address] [place], [place] [id number] EP Weather Strip Mechanic CARDIOVASCULAR DISEASE 08/15/18 documented as of this encounter
--- OUTSIDE RECORDS SUMMARY | 2024-08-27 06:55 | XMS_ITS | Encounter Summary ---
Author Organization [facility] Address [address] [place] [address]. [place], [place] [address] [place] [address] Care Team Providers Care Valve Inserter Name Role Phone Albert Brown MD Primary Care Provider [phone] Tremayne Shi MD Unavailable [phone] Reason for Referral * Imaging (Routine) - Closed Specialty Diagnoses / Procedures Referred By Ines borja Referred To Contact RADIOLOGY Diagnoses Gall bladder disease Procedures NM HEPATOBILIARY SCAN W/GB EJECTION FRACTION Albert Brown MD [address] [place] [address] Phone: tel: fax: Referral ID Status Reason Start Date Expiration Date Visits Re quested Visits Authorized [id number] Closed 05/25/2020 11/22/2020 1 1 Reason for Visit * Reason Comments Abdominal Pain GERD and acid issues Back Pain Encounter Details Date Type Department Care Team (Late st Contact Info) Description 05/20/2020 8:40 AM CDT Office Visit [facility] Medical Group Family and Sports Medicine - [place] [address] [place] [address] Albert Brown MD [address] [place] [address] Abdominal Pain (GERD and acid issues); Back [...] were not included. Primary and Specialty Care [place] Chief Complaint:: Abdominal Pain (GERD and acid [...] file Gets together: Not on file Attends adventist service: Not on file Active member of [...] SCAN W/GB EJECTION FRACTION (08/03/2020 10:27 AM MOLD MAKER HELPER) Anatomical Region Laterality Modality Abdomen Nuclear Medicine 08/03/2020 10:5 6 AM MOLD MAKER HELPER Impressions 08/03/2020 11:01 AM MOLD MAKER HELPER IMPRESSION: ?? 1. ??Normal contractile response of the gallbladder to a fat-containing liquid meal. 2. ??Normal biliary imaging study. Narrative 08/03/2020 11:01 AM MOLD MAKER HELPER EXAMINATION: ??HEPATOBILIARY SCINTIGRAPHY (WITH GALLBLADDER EJECTION FRACTION) [...] Total Score: 9 08/05/20 19 9:19 AM MOLD MAKER HELPER documented as of this encounter Care Teams Valve Inserter Relationship Specialty Start Date End Date Albert Brown MD [address] [place] [address] [address] [place] [address] PCP - General FAMILY PRACTICE 05/16/18 Tremayne Shi MD [facility]. [address] [place] [address] EP Printed Circuit Board Designer CARDIOVASCULAR DISEASE 08/15/18 documented as of this encounter
--- OUTSIDE RECORDS SUMMARY | 2024-08-27 06:55 | XMS_ITS | Encounter Summary ---
Author Organization [facility] Address [facility]. [place], [place] [address] [place] [address] Care Team Providers Care Tetryl Nitrator Operator Name Role Phone Albert Ruby MD Primary Care Provider [phone] Encounter Details Date Type Department Care Team (Late st Contact Info) Description 05/21/2018 Abstract [facility] [address] [place] [address] Rimma Ramirez MD Social History Tobacco Use [...] on filedocumented in this encounter Care Teams Tetryl Nitrator Operator Relationship Specialty Start Date End Date Albert Ruby MD [address] [place] [address] PCP - General FAMILY PRACTICE 05/16/18 documented as of this encounter
--- OUTSIDE RECORDS SUMMARY | 2024-08-27 06:55 | XMS_ITS | Encounter Summary ---
Author Organization [facility] Address [address] [place] [address]. [place], [place] [address] [place] [address] Care Team Providers Care Junior Technical Writer Name Role Phone Albert Ruby MD Primary Care Provider [phone] Tremayne Shi MD Unavailable [phone] Reason for Visit * Reason Onset Date Comments Appointment Reminder 12/02/2019 LMOM Encounter Details Date Type Department Care Team (Late st Contact Info) Description 12/02/2019 Telephone [facility] at [address] [address] Luis Alberto Orosco RMA Appointment [...] Total Score: 9 08/05/20 19 9:19 AM GOLD MINER BLASTING documented as of this encounter Care Teams Junior Technical Writer Relationship Specialty Start Date End Date Albert Ruby MD [address] [place] [address] [address] [place] [address] PCP - General FAMILY PRACTICE 05/16/18 Tremayne Shi MD Three [facility]. [address] [place], [place] [address] EP Filler And Trimmer CARDIOVASCULAR DISEASE 08/15/18 documented as of this encounter
--- OUTSIDE RECORDS SUMMARY | 2024-08-27 06:55 | XMS_ITS | Encounter Summary ---
Author Organization [facility] Address [address] [place] [address]. [place], [place] [address] [place] [address] Care Team Providers Care Medical Editor Name Role Phone Albert Ruby MD Primary Care Provider [phone] Tremayne Shi MD Unavailable [phone] Reason for Visit * Reason Onset Date Comments Appointment Request 04/30/2020 Encounter Details Date Type Department Care Team (Late st Contact Info) Description 04/30/2020 [employer] Message [facility] at [facility], [facility] [address] [place] [address] Tremayne Shi MD [facility]. [facility] [address] [place] [address] Social History Tobacco Use Types [...] Total Score: 9 08/05/20 19 9:19 AM PIPE FITTER GAS PIPE documented as of this encounter Care Teams Medical Editor Relationship Specialty Start Date End Date Albert Ruby MD [address] [facility] [address] [place] [address] PCP - General FAMILY PRACTICE 05/16/18 Tremayne Shi MD [address] [place] [address] EP Statistical Machine Mechanic CARDIOVASCULAR DISEASE 08/15/18 documented as of this encounter
--- OUTSIDE RECORDS SUMMARY | 2024-08-27 06:55 | XMS_ITS | Encounter Summary ---
Author Organization [facility] Address [address] [place] [address]. [place] [address] [place] [address] Care Team Providers Care Farm Service Consultant Name Role Phone Unavailable Primary Care Provider Unavailabl e Encounter Details Date Type Department Care Team (Late st Contact Info) Description 11/24/[address] [facility] Family Medicine - [place] [address] [facility], [address] [place] [address] Albert Ruby MD [address] [place] [address] 200 [place] [address] Social History Tobacco Use Types Packs/Day Years [...] BY MOUTH EVERY NIGHT AT BEDTIME; Therapy: [id number] to (Evaluate:16Sep2017) Requested for: 17Aug2017; Last Rx:[id number] Ordered 2. ARIPiprazole 2 MG Oral Tablet; TAKE 1 TABLET DAILY DIRECTED; Therapy: 02Aug2017 to (Evaluate:16Sep2018) Requested for: 21Sep2017; Last Rx:21Sep2017 Ordered 3. Citalopram Hydrobromide 20 MG Oral Tablet; TAKE 1 TABLET BY MOUTH EVERY DAY; Therapy: [id number] to (Evaluate:[id number]) Requested for: 02Oct2017; Last Rx:02Oct2017 Ordered 4. Montelukast Sodium 10 MG Oral Tablet; TAKE 1 TABLET DAILY; Therapy: [id number] to (Evaluate:22Jul2017); Last Rx:[id number] Ordered 5. ZyrTEC Allergy 10 MG Oral Tablet; TAKE 1 TABLET DAILY DIRECTED; Therapy: [id number] to (Evaluate:20Sep2017); Last Rx:[id number] Ordered Allergies 1. No Known Drug Allergies [...] (premenstrual syndrome); HORACIO = N; Sent To: [facility] [address] Discussion/Summary A&P 1- PMS: Started Naprosyn f/u prn Signatures Electronically signed by : Albert Ruby M.D.; Nov 24 2017 10:48AM [place] (Author) documented in this encounter Plan of Treatment Not on file documented as of this encounter Visit Diagnoses Not on filedocumented in this encounter
--- OUTSIDE RECORDS SUMMARY | 2024-08-27 06:55 | XMS_ITS | Encounter Summary ---
Author Organization [facility] Address [address] [place] [address]. [place], [place] [address] [place] [address] Care Team Providers Care Employment Law Specialist Name Role Phone Albert Ruby MD Primary Care Provider + Tremayne Shi MD Unavailable [phone] Encounter Details Date Type Department Care Team (Late st Contact Info) Description 06/04/2019 Orders Only [facility] at [facility], [address] [place] [address] Elisha Chavarria LPN Social History [...] on filedocumented in this encounter Care Teams Employment Law Specialist Relationship Specialty Start Date End Date Albert Ruby MD [address] [facility] [address] [place] [address] PCP - General FAMILY PRACTICE 05/16/18 Tremayne Shi MD [address] [address] EP Sinker Puller CARDIOVASCULAR DISEASE 08/15/18 documented as of this encounter
--- OUTSIDE RECORDS SUMMARY | 2024-08-27 06:55 | XMS_ITS | Encounter Summary ---
Author Organization [facility] Address [address] [place] [address]. [place] [address] [place] [address] Care Team Providers Care Supervisor Maintenance And Custodians Name Role Phone Albert Brown MD Primary Care Provider [phone] Tremayne Shi MD Unavailable [phone] Reason for Visit * Reason Onset Date Comments Medication Request 11/04/2019 Encounter Details Date Type Department Care Team (Late st Contact Info) Description 11/04/2019 Telephone [facility] Medical Group Family and Sports Medicine - [place] [address] [place] [address] Albert Brown MD 670 [facility] 200 [place] [address] Medication Request Social History Tobacco Use Types [...] on: 11/05/2019 02:18 PM Modules accepted: Orders H WORKER * Jaida Bermudez - 11/05/2019 11:31 AM CST Alprazolam medication request should be 0.5 MG dose Citalopram is not needed. Please remove! Refill request Laura neri patient of ALBERT BROWN MD requests a refill of Venlafaxine XR 37.5 MG 24 hr capsule The patient would like this sent to the following pharmacy: [id number] [address] The next office visit: Next visit with ALBERT BROWN in FAMILY PRACTICE is on: No match found The last office visit: Last visit with ALBERT BROWN in FAMILY PRACTICE was on: 08/05/2019 in [facility] [place] [facility] SM H WORKER * Elisha Sylvester - 11/04/2019 4:04 PM CST Alprazolam .25 mg 120 quantity 2x daily Citalopram 20mg 60 quantity 1x daily Requesting 2 month supply, as patient is switching insurance. Would like to be sure she has enough during the switch. [facility] WORKER documented in this encounter Plan of Treatment Not on file documented as of this encounter Visit Diagnoses Diagnosis Anxiety Anxiety state, unspecified documented in this encounter Additional Health Concerns Assessment Noted Time PHQ-9 Depression Total Score: 9 08/05/20 19 9:19 AM DITCH WORKER documented as of this encounter Care Teams Supervisor Maintenance And Custodians Relationship Specialty Start Date End Date Albert Brown MD [facility] 200 [place] [address] PCP - General FAMILY PRACTICE 05/16/18 Tremayne Shi MD Three [facility]. [facility] [address] [place] [address] EP Lan Manager CARDIOVASCULAR DISEASE 08/15/18 documented as of this encounter
--- OUTSIDE RECORDS SUMMARY | 2024-08-27 06:55 | XMS_ITS | Encounter Summary ---
Author Organization [facility] Address [address] [place] [address]. [place] [address] Care Team Providers Care Press Tender Incendiary Grenade Name Role Phone Albert Ruby MD Primary Care Provider [phone] Tremayne Shi MD Unavailable [phone] Encounter Details Date Type Department Care Team [...] Total Score: 9 08/05/20 19 9:19 AM DIRECTOR OF MATERNITY SERVICES documented as of this encounter Care Teams Press Tender Incendiary Grenade Relationship Specialty Start Date End Date Albert Ruby MD [address] [facility] [place] [address] PCP - General FAMILY PRACTICE 05/16/18 Tremayne Shi MD [address] [place] [address] EP Canine Enforcement Officer CARDIOVASCULAR DISEASE 08/15/18 documented as of this encounter
--- OUTSIDE RECORDS SUMMARY | 2024-08-27 06:55 | XMS_ITS | Encounter Summary ---
Author Organization [facility] Address [address] [place] [address]. [place], [place] [address] [place] [address] Care Team Providers Care Eyeglass Maker Name Role Phone Albert Ruby MD Primary Care Provider [phone] Tremayne Shi MD Unavailable [phone] Reason for Visit * Reason Onset Date Comments Prior Authorization 09/18/2018 [facility] or Authorization for Corlanor 5mg has been Denied. Encounter Details Date Type Department Care Team (Late st Contact Info) Description 09/18/2018 Telephone [facility] at [facility], [facility] [address] [place] [address] Tremayne Shi MD [facility]. [facility] [address] [place] [address] Prior Authorization ([facility] Prior Authorization for Corlanor 5mg has been [...] 09/25/2018 9:44 AM CST Appeal faxed to [facility]. E TENDER * MARGARITA Hutchison - 09/19/2018 9:48 AM CST It needs to go to [facility] Appeals Corridinator Include her name, date of , member number ([id number]). They are going to want to know why you think they should change the decision and medical information to support the request. I will need it printed and signed. Thank you E TENDER * Tremayne Shi MD - 09/19/2018 9:03 AM CST Let appeal the denial. I honestly don't think she is going to see benefit from propranolol if metoprolol was not effective. Please let me know who I need to write a letter to. Thanks E TENDER * MARGARITA Hutchison - 09/18/2018 4:[address] Shi, Prior Auth for Corlanor 5mg has been DENIED. Denial states: Corlanor 5mg tabler is not a covered benefit on the 2019 [facility] Medicaid Formulary. [facility] will cover Propranolol tablets without prior authorization. Do you want to switch her to something else or do you want to appeal this denial? Please adviseNate E TENDER documented in this encounter Plan of Treatment Not on file documented as of this encounter Visit Diagnoses Not on filedocumented in this encounter Care Teams Eyeglass Maker Relationship Specialty Start Date End Date Albert Ruby MD [address] [facility] 200 [place], [place] [address] PCP - General FAMILY PRACTICE 05/16/18 Tremayne Shi MD [facility]. [facility] [address] [place], [place] [address] EP Bank Guard CARDIOVASCULAR DISEASE 08/15/18 documented as of this encounter
--- OUTSIDE RECORDS SUMMARY | 2024-08-27 06:55 | XMS_ITS | Encounter Summary ---
Author Organization [facility] Address [address] [place] [address]. [place] [address] Care Team Providers Care Warehouse Shipping Supervisor Name Role Phone Unavailable Primary Care Provider Unavailabl e Encounter Details Date Type Department Care Team (Latest Contact Info) Description 03/02/2018 Abstract [facility] Medical Group Social History Tobacco [...]
--- OUTSIDE RECORDS SUMMARY | 2024-08-27 06:55 | XMS_ITS | Encounter Summary ---
Author Organization [facility] Address [address] [place] [address]. [place] [address] Care Team Providers Care Health Researcher Name Role Phone Albert Ruby MD Primary Care Provider [phone] Tremayne Shi MD Unavailable [phone] Encounter Details Date Type Department Care Team [...] Total Score: 9 08/05/20 19 9:19 AM DIGESTION OPERATOR documented as of this encounter Care Teams Health Researcher Relationship Specialty Start Date End Date Albert Ruby MD [address] [place] [address] PCP - General FAMILY PRACTICE 05/16/18 Tremayne Shi MD [address] [place] [address] EP Director Retail Brand Development CARDIOVASCULAR DISEASE 08/15/18 documented as of this encounter
--- OUTSIDE RECORDS SUMMARY | 2024-08-27 06:55 | XMS_ITS | Encounter Summary ---
Author Organization [facility] Address [address] [place] [address]. [place] [address] [place] [address] Care Team Providers Care Commercial Counsel Name Role Phone Albert Ruby MD Primary Care Provider [phone] Tremayne Shi MD Unavailable [phone] Reason for Visit * Reason Comments Physical Annual physical exam Encounter Details Date Type Department Care Team (Late st Contact Info) Description 11/13/2020 8:00 AM HOME ENERGY INSPECTOR Office Visit [facility] Family and Sports Medicine - [place] [address] [place] [address] Albert Ruby MD 6[address] [facility] [address] [place] [address] Physical (Annual physical exam) Social History Tobacco [...] COVID-19? No / Unsure 11/13/2020 7:54 AM HOME ENERGY INSPECTOR documented as of this encounter Last Filed Vital Signs Vital Sign Reading Time Taken Comments Blood Pressure 124/80 11/13/2020 8:07 AM HOME ENERGY INSPECTOR Pulse 91 11/13/2020 8:07 AM HOME ENERGY INSPECTOR Temperature 36.4 ??C (97.5 ??F) 11/13/2020 8:07 AM CS T Respiratory Rate 17 11/13/2020 8:07 AM HOME ENERGY INSPECTOR Oxygen Saturation 99% 11/13/2020 8:07 AM HOME ENERGY INSPECTOR Inhaled Oxygen Concentration - - Weight 121.1 kg (267 lb) 11/13/2020 8:07 AM HOME ENERGY INSPECTOR Height 165.1 cm (5' 5 ) 11/13/2020 8:07 AM HOME ENERGY INSPECTOR Body Mass Index 44.43 11/13/2020 8:07 AM HOME ENERGY INSPECTOR documented in this encounter Progress Notes * Amber Jackson CMA - 11/13/2020 8:00 AM CSTAddended by: AMBER JACKSON on: 11/13/2020 08:40 AM Modules accepted: Orders ENERGY INSPECTOR * Amber Jackson CMA - 11/13/2020 8:00 AM CSTAddended by: AMBER JACKSON on: 11/13/2020 08:40 AM Modules accepted: Orders ENERGY INSPECTOR * Juliana Ny - 11/13/2020 8:00 AM [...] file Gets together: Not on file Attends congregational service: Not on file Active member of [...] Albert Ruby MD at 11/13/2020 10:53 AM HOME ENERGY INSPECTOR ENERGY INSPECTOR ENERGY INSPECTOR documented in this encounter Plan of Treatment Not on file documented as of this encounter Procedures Procedure Name Priority Date/Time Associated Diagnosis Comments TSH W/REFLEX Routine 11/13/2020 8:40 AM HOME ENERGY INSPECTOR Annual physical exam HEMOGLOBIN, GLYCOSYLATED Routine 11/13/2020 8:40 AM HOME ENERGY INSPECTOR Annual physical exam COMPREHENSIVE METABOLIC PANEL Routine 11/13/2020 8:40 AM HOME ENERGY INSPECTOR Annual physical exam LIPID PANEL Routine 11/13/2020 8:40 AM HOME ENERGY INSPECTOR Annual physical exam CBC W/DIFF AUTOMATED Routine 11/13/2020 8:40 AM HOME ENERGY INSPECTOR Annual physical exam VENIPUNC ARM DRAW Routine 11/13/2020 8:3 2 AM HOME ENERGY INSPECTOR Annual physical exam documented in this encounter Results * TSH W/REFLEX (11/13/2020 8:40 AM HOME ENERGY INSPECTOR) TSH 1.082 0.358 - 3.740 uIU/ML 11/13/2020 7:54 PM HOME ENERGY INSPECTOR [facility] 11/13/2020 8:40 AM HOME ENERGY INSPECTOR us Albert Ruby MD LABORATORY Final Result -[facility] [address] [place] [address], * LIPID PANEL (11/13/2020 8:40 AM HOME ENERGY INSPECTOR) CHOLESTEROL 120 MG/DL 11/13/2020 7:54 PM [facility] Comment:DESIRABLE: <200 TRIGLYCERIDES 32 MG/DL 11/13/2020 7:54 PM [facility] Comment:<150 NORMAL HDL 52 >49 MG/DL 11/13/2020 7:54 PM [facility] LDL-C 62 MG/DL 11/13/2020 7:54 PM [facility] Comment:<100 OPTIMAL VLDL CALCULATION 6 MG/DL 11/14/19 7:54 PM [facility] Comment:REFERENCE RANGE NOT ESTABLISHED CHOL/HDL RATIO 2.3 11/13/2020 7:54 PM [facility] Comment:REFERENCE RANGE NOT ESTABLISHED LD-1/LD-2 RATIO 1.2 7:54 PM [facility] Comment:REFERENCE RANGE NOT ESTABLISHED NON HDL CHOLESTEROL 68 MG/DL 11/13/2020 7:54 PM [facility] Comment:REFERENCE RANGE NOT ESTABLISHED 11/13/2020 8:40 AM HOME ENERGY INSPECTOR Albert Ruby MD LABORATORY Final Result [facility] [address] [place] [address], * HEMOGLOBIN, GLYCOSYLATED (11/13/2020 8:40 AM HOME ENERGY INSPECTOR) HGB A1C 5.0 3.80 - 5.60 % 11/14/2020 9:32 AM HOME ENERGY INSPECTOR [facility] ESTIMATED AVG GLUCOSE 97 74 - 106 MG/DL 11/14/2020 9:32 AM HOME ENERGY INSPECTOR [facility] 11/13/2020 8:40 AM HOME ENERGY INSPECTOR us Albert Ruby MD LABORATORY Final Result [facility] [address] [place] [address], * (ABNORMAL) CBC W/DIFF AUTOMATED (11/13/2020 8:40 AM HOME ENERGY INSPECTOR) WBC 14.6(H) 4.0 - 10.8 x10'3/uL 11/13/2020 7:49 PM HOME ENERGY INSPECTOR [facility] RBC 4.85 4.10 - 5.40 x10'6/uL 11/13/2020 7:49 PM HOME ENERGY INSPECTOR [facility] HGB 11.8(L) 12.0 - 16.0 G/DL 11/13/2020 7:49 PM [facility] HCT 38.0 36.0 - 47.0 % 11/13/2020 7:49 PM HOME ENERGY INSPECTOR [facility] MCV 78.4 78.0 - 100.0 FL 11/13/2020 7:49 PM [facility] MCH 24.3(L) 27.0 - 31.0 PG 11/13/2020 7:49 PM [facility] MCHC 31.1(L) 33.0 - 36.0 G/DL 11/13/2020 7:49 PM [facility] RDW 16.5(H) 11.5 - 14.5 % 11/13/2020 7:49 PM [facility] PLT 365(H) 150 - 350 x10'3/uL 11/13/2020 7:49 PM [facility] MPV 12.8(H) 7.4 - 10.4 FL 11/13/2020 7:49 PM [facility] DIFFERENTIAL TYPE AUTOMATED DIFFERENTIAL 11/13/2020 7:50 PM [facility] NEUTROPHILS % 62.5 % 11/13/2020 7:50 PM HOME ENERGY INSPECTOR [facility] LYMPHOCYTES % 30.4 % 11/13/2020 7:50 PM HOME ENERGY INSPECTOR [facility] MONOCYTES % 5.7 % 11/13/2020 7:50 PM HOME ENERGY INSPECTOR [facility] EOSINOPHILS % 1.2 % 11/13/2020 7:50 PM HOME ENERGY INSPECTOR [facility] BASOPHILS % 0.2 % 11/13/2020 7:50 PM HOME ENERGY INSPECTOR [facility] ABS. NEUTROPHILS 9.10(H) 1.60 - 8.30 x10'3/uL 11/13/2020 7:50 PM HOME ENERGY INSPECTOR [facility] ABS. LYMPHOCYTES 4.43 0.80 - 4.70 x10'3/uL 11/13/2020 7:50 PM [facility] ABS. MONOCYTES 0.83 0.00 - 1.50 x10'3/uL 11/13/2020 7:50 PM HOME ENERGY INSPECTOR [facility] ABS. EOSINOPHILS 0.18 0.00 - 0.40 x10'3/uL 11/13/2020 7:50 PM HOME ENERGY INSPECTOR [facility] ABS. BASOPHILS 0.03 0.00 - 0.20 x10'3/uL 11/13/2020 7:50 PM [facility] 11/13/2020 8:40 AM HOME ENERGY INSPECTOR Albert Ruby MD LABORATORY Final Result [facility] [address] [place] [address], * (ABNORMAL) COMPREHENSIVE METABOLIC PANEL (11/13/2020 8:40 AM HOME ENERGY INSPECTOR) [facility] SODIUM S/P/B 147(H) 136 - 145 MMOL/L 11/13/2020 7:54 PM HOME ENERGY INSPECTOR [facility] POTASSIUM S/P/B 4.0 3.5 - 5.1 MMOL/L 11/13/2020 7:54 PM [facility] CHLORIDE S/P/B 108(H) 98 - 107 MMOL/L 11/13/2020 7:54 PM [facility] CO2 23.6 21 - 32 MMOL/L 11/13/2020 7:54 PM [facility] GLUCOSE 76 70 - 99 MG/DL 11/13/2020 7:54 PM [facility] BUN 9 6 - 24 MG/DL 11/13/2020 7:54 PM [facility] CREATININE S/P/B 0.79 0.55 - 1.02 MG/DL 11/13/2020 7:54 PM [facility] CALCIUM S/P/B 9.2 8.4 - 10.5 MG/DL 11/13/2020 7:54 PM [facility] BILIRUBIN TOTAL S/P/B 0.3 0.2 - 1.0 MG/DL 11/13/2020 7:54 PM [facility] ALKALINE PHOSPHATASE S/P/B 112 52 - 144 U/L 11/13/2020 7:54 PM [facility] AST 16 15 - 37 U/L 11/13/2020 7:54 PM [facility] ALT 26 14 - 59 U/L 11/13/2020 7:54 PM [facility] TOTAL PROTEIN S/P/B 7.9 6.4 - 8.2 G/DL 11/13/2020 7:54 PM [facility] ALBUMIN S/P/B 3.9 3.4 - 5.0 G/DL 11/13/2020 7:54 PM [facility] ANION GAP 15.4(H) 5 - 15 MMOL/L 11/13/2020 7:54 PM [facility] Comment:REFERENCE RANGE NOT ESTABLISHED OSMOLALITY (CALC) 301 MOSM/KG 11/13/2020 7:54 PM HOME ENERGY INSPECTOR [facility] Comment:REFERENCE RANGE NOT ESTABLISHED EGFR NON-AFR. AMER. >90 >90 ML/MIN/1 .73 M2 11/13/2020 7:54 PM HOME ENERGY INSPECTOR [facility] EGFR AFR. AMER. >90 >90 ML/MIN/1 .73 M2 11/13/2020 7:54 PM HOME ENERGY INSPECTOR [facility] GFR NOTES THE ESTIMATED GFR IS CALCULATED USING THE 2009 CKD-EPI EQUATION. THE FOLLOWING CATEGORIES FOR GRADING RENAL FUNCTION ARE RECOMMENDED BY THE INTERNATIONAL SOCIETY OF NEPHROLOGY (KDIGO 2012 CLINICAL PRACTICE GUIDELINE). 11/13/2020 7:54 PM HOME ENERGY INSPECTOR [facility] Comment: G1,NORMAL OR HIGH: >89 ml/min/1.73 m2 G2,MILDLY DECREASED: 60-89 ml/min/1.73 m2 G3A,MILDLY TO MODERATELY DECREASED: 45-59 ml/min/1.73 m2 G3B,MODERATELY TO SEVERELY DECREASED: 30-44 ml/min/1.73 m2 G4,SEVERELY DECREASED: 15-29 ml/min/1.73 m2 G5,KIDNEY FAILURE: <15 ml/min/1.73 m2 11/13/2020 8:40 AM HOME ENERGY INSPECTOR Albert Ruby MD LABORATORY Final Result [facility] [address] [place] [address], documented in this encounter Visit Diagnoses Diagnosis Annual physical exam- Primary Routine general medical examination at a health care facility PMS (premenstrual syndrome) Premenstrual tension syndromes Gastroesophageal reflux disease without esophagitis Esophageal reflux Anxiety Anxiety state, unspecified Tachycardia Tachycardia, unspecified documented in this encounter Additional Health Concerns Assessment Noted Time PHQ-9 Depression Total Score: 10 021 8:11 AM HOME ENERGY INSPECTOR documented as of this encounter Care Teams Commercial Counsel Relationship Specialty Start Date End Date Albert Ruby MD [address] [facility] [address] [place], [place] [id number] PCP - General FAMILY PRACTICE 05/16/18 Tremayne Shi MD [place]. [facility] [address] [place], [place] [id number] EP Blade Sharpener CARDIOVASCULAR DISEASE 08/15/18 documented as of this encounter
--- OUTSIDE RECORDS SUMMARY | 2024-08-27 06:55 | XMS_ITS | Encounter Summary ---
Author Organization [facility] Address [address] [place] [address]. [place], [place] [address] [place] [address] Care Team Providers Care Motel Maid Name Role Phone Albert Ruby MD Primary Care Provider [phone] Tremayne Shi MD Unavailable [phone] Reason for Visit * Reason Onset Date Comments Medication 06/12/2019 Encounter Details Date Type Department Care Team (Late st Contact Info) Description 06/12/2019 Telephone [facility] at [address] [address] Karen Pina, sole molding machine operator Social History Tobacco Use Types Packs/Day Years [...] for Diltiazem 180mg daily was sent to [facility] in [place]. The patient states that she needs the Rx to go to [facility] in [place]. I informed the patient that I will send a new Rx. The patient verbalized understanding and had no further questions. Rx sent to [facility]. documented in this encounter Plan of Treatment Not on file documented as of this encounter Visit Diagnoses Not on filedocumented in this encounter Care Teams Motel Maid Relationship Specialty Start Date End Date Albert Ruby MD [address] [place], [place] [address]VD [address] [facility] [place] [address] PCP - General FAMILY PRACTICE 05/16/18 [facility] [address] [place] [address] EP Senior Director CARDIOVASCULAR DISEASE 08/15/18 documented as of this encounter
--- OUTSIDE RECORDS SUMMARY | 2024-08-27 06:55 | XMS_ITS | Encounter Summary ---
Author Organization [facility] Address [address] [place] [address]. [place], [place] [address] [place] [address] Care Team Providers Care Java Web Architect Name Role Phone Albert Ruby MD Primary Care Provider [phone] Tremayne hSi MD Unavailable [phone] Reason for Visit * Reason Onset Date Comments Concerns 09/05/2018 Encounter Details Date Type Department Care Team (Late st Contact Info) Description 09/05/2018 Telephone [employer] [facility] at [address] [address] Karen Pina RN Concerns Social [...] patientverbalized understanding and had no further questions. DESIGNER * Tremayne Shi MD - 09/05/2018 11:44 AM CST I agree with that plan. She will see me in clinic next week in follow up. Thanks. DESIGNER * Karen Pina RN - 09/05/2018 10:52 [...] no further questions. Message to Dr. Shi. DESIGNER documented in this encounter Plan of Treatment Not on file documented as of this encounter Visit Diagnoses Not on filedocumented in this encounter Care Teams Java Web Architect Relationship Specialty Start Date End Date Albert Ruby MD [address] [place] [address] [address] [place] [address] PCP - General FAMILY PRACTICE 05/16/18 Tremayne [facility] MD [facility] [address] [place] [address] EP Habilitation Assistant CARDIOVASCULAR DISEASE 08/15/18 documented as of this encounter
--- OUTSIDE RECORDS SUMMARY | 2024-08-27 06:55 | XMS_ITS | Encounter Summary ---
Author Organization [facility] Address [address] [place] [address]. [place] [address] [place] [address] Care Team Providers Care Printed Circuit Boards Stripper Etcher Name Role Phone Albert Ruby MD Primary Care Provider [phone] Tremayne Shi MD Unavailable [phone] Reason for Visit * Reason Onset Date Comments Other 01/31/2019 Encounter Details Date Type Department Care Team (Late st Contact Info) Description 01/31/2019 Telephone [facility] Family and Sports Medicine - [place] [address] [place] [address] Albert Ruby MD [address]70 [facility] [address] [place] [address] Other Social History Tobacco Use Types Packs/Day [...] management documented in this encounter Care Teams Printed Circuit Boards Stripper Etcher Relationship Specialty Start Date End Date Albert Ruby MD [address] [place] [address] [address] [place] [address] PCP - General FAMILY PRACTICE 05/16/18 [facility] MD [facility] [address] [place] [address] EP Application Support Consultant CARDIOVASCULAR DISEASE 08/15/18 documented as of this encounter
--- OUTSIDE RECORDS SUMMARY | 2024-08-27 06:55 | XMS_ITS | Encounter Summary ---
Author Organization [facility] Address [address] [place] [address]. [place] [address] Care Team Providers Care Housing And Residence Life Director Name Role Phone Albert Ruby MD Primary Care Provider [phone] Tremayne Shi MD Unavailable [phone] Encounter Details Date Type Department Care Team [...] COVID-19? No / Unsure 11/17/2020 10:06 AM FARMHAND documented as of this encounter Plan of Treatment Not on file documented as of this encounter Visit Diagnoses Not on filedocumented in this encounter Additional Health Concerns Assessment Noted Time PHQ-9 Depression Total Score: 10 021 8:11 AM FARMHAND documented as of this encounter Care Teams Housing And Residence Life Director Relationship Specialty Start Date End Date Albert Ruby MD [address] [place] [address] [address] [place] [address] PCP - General FAMILY PRACTICE 05/16/18 Tremayne Shi MD [facility]. [facility] [address] [place] [address] EP Wafer Production Worker CARDIOVASCULAR DISEASE 08/15/18 documented as of this encounter
--- OUTSIDE RECORDS SUMMARY | 2024-08-27 06:55 | XMS_ITS | Encounter Summary ---
Author Organization [facility] Address [address] [place] [address]. [place] [address] [place] [address] Care Team Providers Care Corpsman Name Role Phone Albert Ruby MD Primary Care Provider [phone] Tremayne Shi MD Unavailable [phone] Reason for Visit * Reason Onset Date Comments Referral Request 04/22/2020 Encounter Details Date Type Department Care Team (Late st Contact Info) Description 04/22/2020 Telephone [facility] Family and Sports Medicine - [place] [address] [place] [address] Albert Ruby MD 670 [facility] [address] [place] [address] Referral Request Social History Tobacco Use Types [...] Total Score: 9 08/05/20 19 9:19 AM GRINDER SETUP OPERATOR documented as of this encounter Care Teams Corpsman Relationship Specialty Start Date End Date Albert Ruby MD [address] [place] [address] [address] [place] [address] PCP - General FAMILY PRACTICE 05/16/18 Tremayne Shi MD [facility] [address] [place], [place] [address] EP Costume Specialist CARDIOVASCULAR DISEASE 08/15/18 documented as of this encounter
--- OUTSIDE RECORDS SUMMARY | 2024-08-27 06:55 | XMS_ITS | Encounter Summary ---
Author Organization [facility] Address [address] [place] [address]. [place], [place] [address] [place] [address] Care Team Providers Care Cellophane Tester Name Role Phone Albert Ruby MD Primary Care Provider [phone] Tremayne Izaguirre MD Unavailable [phone] Reason for Visit * Reason Onset Date Comments Concerns 04/18/2019 Encounter Details Date Type Department Care Team (Late st Contact Info) Description 04/18/2019 Telephone [facility] at [address] [address] Karen Pina, RN Concerns Social [...] had no further questions. Message to the alumni secretary. * Karen Pina RN - 04/18/2019 3:02 PM CDT I received a phone call from the patient stating that her HR has been 130s for the past two hours; current reading on [employer] Watch 126. The patient states that she [...] on filedocumented in this encounter Care Teams Cellophane Tester Relationship Specialty Start Date End Date Albert Ruby MD [address] [place] [address] [address] [place] [address] PCP - General FAMILY PRACTICE 05/16/18 Tremayne Izaguirre MD [facility]. [facility] [address] [place], [place] [address] EP Machine Puller Over CARDIOVASCULAR DISEASE 08/15/18 documented as of this encounter
--- OUTSIDE RECORDS SUMMARY | 2024-08-27 06:55 | XMS_ITS | Encounter Summary ---
Author Organization [facility] Address [address] [place] [address]. [place], [place] [address] [place] [address] Care Team Providers Care Independent Living Instructor Name Role Phone Albert Ruby MD Primary Care Provider [phone] Tremayne Shi MD Unavailable [phone] Reason for Referral * Imaging (Routine) - Closed Specialty Diagnoses / Procedures Referred By Ines borja Referred To Contact RADIOLOGY Diagnoses Gall bladder disease Procedures US ABD LIMITED Albert Ruby MD [address] [place] [address] Phone: tel:[phone] fax: Referral ID Status Reason Start Date Expiration Date Visits Re quested Visits Authorized [id number] Closed 02/21/2020 03/22/2021 1 1 Reason for Visit * Imaging (Routine) - Closed Specialty Diagnoses / Procedures Referred By Ines borja Referred To Contact RADIOLOGY Diagnoses Gall bladder disease Procedures US ABD LIMITED Albert Ruby MD [address] [place] [address] Phone: tel: fax: Referral ID Status Reason Start Date Expiration Date Visits Re quested Visits Authorized [id number] Closed 02/21/2020 03/22/2021 1 1 Encounter Details Date Type Department Care Team (Latest Contact Info) Description 02/27/2020 8:19 AM CDT - 02/27/2020 11:59 PM CDT Hospital Encounter [facility] [place] [address] Albert Ruby MD [address] [facility] [address] [place] [address] Discharge Disposition: Home or Self Care (Routine [...] 9 08/05/20 19 9:19 AM DIRECTOR OF ONCOLOGY documented as of this encounter Care Teams Independent Living Instructor Relationship Specialty Start Date End Date Albert Ruby MD [address] [place] [address] [address] [place] [address] PCP - General FAMILY PRACTICE 05/16/18 Tremayne Shi MD [facility]. [address] [place], [place] [address] EP Resident Caregiver CARDIOVASCULAR DISEASE 08/15/18 documented as of this encounter
--- OUTSIDE RECORDS SUMMARY | 2024-08-27 06:55 | XMS_ITS | Encounter Summary ---
Author Organization [facility] Address [address] [place] [address]. [place] [address] [place] [address] Care Team Providers Care Machine Feeder Raw Stock Name Role Phone Albert Ruby MD Primary Care Provider [phone] Tremayne Shi MD Unavailable [phone] Reason for Visit * Reason Onset Date Comments Referral 12/31/2020 Encounter Details Date Type Department Care Team (Late st Contact Info) Description 12/31/2020 Telephone [facility] Family and Sports Medicine - [place] [address] [place] [address] Albert Ruby MD [address]70 [facility] 200 [place] [address] Referral Social History Tobacco Use Types Packs/Day [...] name: Dr. Velasquez Sellers Address/ Phone/ Fax: [address] [place] [address] Appointment date: Does not have appointment yet. Diagnosis/ Problem: Upper abdominal pain documented in this encounter Plan of Treatment Not on file documented as of this encounter Visit Diagnoses Not on filedocumented in this encounter Additional Health Concerns Assessment Noted Time PHQ-9 Depression Total Score: 10 021 8:11 AM AGENCY SALES DEVELOPMENT ASSOCIATE documented as of this encounter Care Teams Machine Feeder Raw Stock Relationship Specialty Start Date End Date Albert Ruby MD [address] [place] [address] [address] [place] [address] PCP - General FAMILY PRACTICE 05/16/18 Tremayne Shi MD [facility]. [address] [place] [address] EP Electroplating Technician CARDIOVASCULAR DISEASE 08/15/18 documented as of this encounter
--- OUTSIDE RECORDS SUMMARY | 2024-08-27 06:55 | XMS_ITS | Encounter Summary ---
Author Organization [facility] Address [address] [place] [address]. [place], [place] [address] [place] [address] Care Team Providers Care Carver And Checkerer Specials Name Role Phone Albert Ruby MD Primary Care Provider [phone] Tremayne Shi MD Unavailable [phone] Reason for Visit * Reason Onset Date Comments Results 11/25/2020 Encounter Details Date Type Department Care Team (Late st Contact Info) Description 11/25/[address] [address] Karen Pina, RN Results Social [...] COVID-19? No / Unsure 11/17/2020 10:06 AM GAME TESTER documented as of this encounter Progress Notes [...] Depression Total Score: 10 021 8:11 AM GAME TESTER documented as of this encounter Care Teams Carver And Checkerer Specials Relationship Specialty Start Date End Date Albert Ruby MD [address] [address] PCP - General FAMILY PRACTICE 05/16/18 Tremayne Shi MD [address] [address] EP Manager Simulation CARDIOVASCULAR DISEASE 08/15/18 documented as of this encounter
--- OUTSIDE RECORDS SUMMARY | 2024-08-27 06:55 | XMS_ITS | Encounter Summary ---
Author Organization [facility] Address [address] [place] [address]. [place], [place] [address] [place] [address] Care Team Providers Care Reinstatement Clerk Name Role Phone Albert Ruby MD Primary Care Provider [phone] Tremayne Shi MD Unavailable [phone] Reason for Visit * Reason Onset Date Comments Prior Authorization 09/27/2018 [place] or Auth for Corlanor 5mg has been APPROVED from 09-26-18 through 12-25-18. Encounter Details Date Type Department Care Team (Late st Contact Info) Description 09/27/2018 Telephone [facility] at [facility], [facility] [address] [place] [address] Tremayne Shi MD [facility]. [facility] [address] [place] [address] Prior Authorization ([place] Prior Auth for Corlanor 5mg has been [...] MARGARITA Hutchison - 09/27/2018 8:25 AM CST [place] Prior Auth for Corlanor 5mg has been APPROVED from 09-26-18 through 12-25-18. [employer] MEDIA ASSOCIATE documented in this encounter Plan of Treatment Not on file documented as of this encounter Visit Diagnoses Not on filedocumented in this encounter Care Teams Reinstatement Clerk Relationship Specialty Start Date End Date Albert Ruby MD [address] [place] [address] [address] [facility], [place] [id number] PCP - General FAMILY PRACTICE 05/16/18 [facility]remayne Shi MD [facility] [address] [place], [place] [address] EP Principal Programmer CARDIOVASCULAR DISEASE 08/15/18 documented as of this encounter
--- OUTSIDE RECORDS SUMMARY | 2024-08-27 06:55 | XMS_ITS | Encounter Summary ---
Author Organization [facility] Address [facility]. [place], [place] [address] [place] [address] Care Team Providers Care Audio Visual Equipment Rental Clerk Name Role Phone Albert Brown MD Primary Care Provider [phone] Tremayne Shi MD Unavailable [phone] Reason for Referral * Imaging (Routine) - Closed Specialty Diagnoses / Procedures Referred By Ines borja Referred To Contact RADIOLOGY Diagnoses Gall bladder disease Procedures US ABD LIMITED Albert Brown MD [address] [employer] N[address] [facility] [place] [address] Phone: tel: fax: Referral ID Status Reason Start Date Expiration Date Visits Re quested Visits Authorized [id number] Closed 02/21/2020 03/22/2021 1 1 Reason for Visit * Reason Comments Abdominal Pain RUQ pain and bloatin g Encounter Details Date Type Department Care Team (Late st Contact Info) Description 02/21/2020 10:40 AM CDT Office Visit [facility] - [place] [address] [place] [address] Albert Brown MD [address] [place] [address] Abdominal Pain (RUQ pain and bloating) Social [...] were not included. Primary and Specialty Care [place] Chief Complaint:: Abdominal Pain (RUQ pain and [...] file Gets together: Not on file Attends confucianism service: Not on file Active member of [...] and agrees with the treatment plan ALBERT RBOWN MD 02/21/2020 documented in this encounter Plan [...] Total Score: 9 08/05/20 19 9:19 AM CURTAIN WORKER documented as of this encounter Care Teams Audio Visual Equipment Rental Clerk Relationship Specialty Start Date End Date Albert Brown MD [address] [place] [address] [address] [place] [address] PCP - General FAMILY PRACTICE 05/16/18 [facility] [address] [place] [address] CARDIOVASCULAR DISEASE 08/15/18 documented as of this encounter
--- OUTSIDE RECORDS SUMMARY | 2024-08-27 06:55 | XMS_ITS | Encounter Summary ---
Author Organization [facility] Address [address] [place] [address]. [place] [address] Care Team Providers Care Assistance Representative Name Role Phone Albert Ruby MD Primary Care Provider [phone] Tremayne Shi MD Unavailable [phone] Encounter Details Date Type Department Care Team [...] COVID-19? No / Unsure 08/02/2020 8:32 PM TERMINAL MANAGER documented as of this encounter Plan of Treatment Not on file documented as of this encounter Visit Diagnoses Not on filedocumented in this encounter Additional Health Concerns Assessment Noted Time PHQ-9 Depression Total Score: 9 08/05/20 19 9:19 AM TERMINAL MANAGER documented as of this encounter Care Teams Assistance Representative Relationship Specialty Start Date End Date Albert Ruby MD [address] [facility] [address] [place] [address] PCP - General FAMILY PRACTICE 05/16/18 Tremayne Shi MD [address] [place] [address] EP Assistant Real Estate Manager CARDIOVASCULAR DISEASE 08/15/18 documented as of this encounter
--- OUTSIDE RECORDS SUMMARY | 2024-08-27 06:55 | XMS_ITS | Encounter Summary ---
Author Organization [facility] Address [address] [place] [address]. [place] [address] Care Team Providers Care Permit Review Assistant Name Role Phone Albert Ruby MD Primary Care Provider [phone] Tremayne Shi MD Unavailable [phone] Encounter Details Date Type Department Care Team [...] Total Score: 9 08/05/20 19 9:19 AM HEALTH INSURANCE SPECIALIST documented as of this encounter Care Teams Permit Review Assistant Relationship Specialty Start Date End Date Albert Ruby MD [address] [place] [address] PCP - General FAMILY PRACTICE 05/16/18 Tremayne Shi MD [address] [place] [address] EP Food Service Employee CARDIOVASCULAR DISEASE 08/15/18 documented as of this encounter
--- OUTSIDE RECORDS SUMMARY | 2024-08-27 06:55 | XMS_ITS | Encounter Summary ---
Author Organization [facility] Address [address] [place] [address]. [place] [address] Care Team Providers Care Piler Name Role Phone Albert Ruby MD Primary Care Provider [phone] Tremayne Shi MD Unavailable [phone] Encounter Details Date Type Department Care Team [...] COVID-19? No / Unsure 08/02/2020 8:32 PM COMMUNITY RELATIONS DIRECTOR documented as of this encounter Plan of Treatment Not on file documented as of this encounter Visit Diagnoses Not on filedocumented in this encounter Additional Health Concerns Assessment Noted Time PHQ-9 Depression Total Score: 9 08/05/20 19 9:19 AM COMMUNITY RELATIONS DIRECTOR documented as of this encounter Care Teams Piler Relationship Specialty Start Date End Date Albert Ruby MD [address] [facility] [place] [address] PCP - General FAMILY PRACTICE 05/16/18 Tremayne Shi MD [address] [place] [address] EP Egg Processor CARDIOVASCULAR DISEASE 08/15/18 documented as of this encounter
--- OUTSIDE RECORDS SUMMARY | 2024-08-27 06:55 | XMS_ITS | Encounter Summary ---
Author Organization [facility] Address [address] [place] [address]. [place] [address] [place] [address] Care Team Providers Care Quality Project Manager Name Role Phone Unavailable Primary Care Provider Unavailabl e Encounter Details Date Type Department Care Team (Late st Contact Info) Description 02/28/2018 Abstract [facility] Family Medicine - [place] [address] [facility], [address] [place] [address] Tana Dennison NP [address] [place] [address] Social History Tobacco Use Types Packs/Day Years [...] BY MOUTH EVERY NIGHT AT BEDTIME; Therapy: [id number] to (Evaluate:16Sep2017) Requested for: [id number]; Last Rx:[id number] Ordered 2. Citalopram Hydrobromide 20 MG Oral Tablet; TAKE 1 TABLET BY MOUTH EVERY DAY; Therapy: 53Yvh2817 to (Evaluate:96Tgw4307) Requested for: 02Oct2017; Last Rx:02Oct2017 Ordered 3. Naproxen 500 MG Oral Tablet; TAKE 1 TABLET EVERY 12 HOURS NEEDED; Therapy: 24Nov2017 to (Evaluate:74Zzn0049) Requested for: 24Nov2017; Last Rx:24Nov2017 Ordered 4. ZyrTEC Allergy 10 MG Oral Tablet; TAKE 1 TABLET DAILY DIRECTED; Therapy: 24Cmw6839 to (Evaluate:20Sep2017); Last Rx:[id number] Ordered Allergies 1. No Known Drug Allergies [...] Allergic rhinitis;HORACIO = N; Verified Transmission to [facility] [address]; Last Updated By: [facility];02/28/2018 12:23:58 PM Anxiety 2. Citalopram Hydrobromide 20 MG Oral Tablet; TAKE 1 TABLET BY MOUTH EVERY DAY Rx By: Tana Dennison; Dispense: 30 Days ; #:30 Tablet; Refill: 6; For: Anxiety; HORACIO = N; Verified Transmission to [facility] [address] 3. Avoid alcoholic beverages.; Status:Complete; Done: 02Mar2018 [...] Office; Status:Complete; Done: 28Feb2018 12:38PM Performed:In Office; Due:50Zze2797;Ordered; For: control counseling; Ordered By:Tana Dennison; Insomnia 10. Amitriptyline HCl - 25 MG Oral Tablet; TAKE 1 TABLET BY MOUTH EVERY NIGHT AT BEDTIME Rx By: Tana Dnenison; Dispense: 0 Days ; #:30 Tablet; Refill: 5; For: Insomnia; HORACIO = N; Verified Transmission to [facility]; Last Updated By: HildaZuldi; 02/28/2018 12:24:00 PM Signatures Electronically signed by : Tana Dennison NP; Mar 02 2018 12:19PM STEM DRYER MAINTAINER (Author) * Tana Dennison NP - 02/28/2018 [...] Allergic rhinitis;HORACIO = N; Verified Transmission to [facility]; Last Updated By: [employer] [facility];02/28/2018 12:23:58 PM 2. Citalopram Hydrobromide 20 MG Oral Tablet; TAKE 1 TABLET BY MOUTH EVERY DAY Rx By: Tana Dennison; Dispense: 30 Days ; #:30 Tablet; Refill: 6; For: Health Maintenance; HORACIO = N; Verified Transmission to [facility] [address]; Last Updated By: [employer]; 02/28/2018 12:23:59 PM 3. *Urine Test In Office; Status:Resulted - Requires Verification; Done: 28Feb2018 12:38PM Performed:In Office; Due:[id number]; Last Updated By:Izabela Wray; 02/28/2018 12:38:33 PM;Ordered; [...] Insomnia; HORACIO = N; Verified Transmission to [facility] [address]; Last Updated By: [facility]; 02/28/2018 12:24:00 PM Signatures Electronically signed by : Izabela Wray MA; Feb 28 2018 2:07PM STEM DRYER MAINTAINER (Author) documented in this encounter Plan of [...] needed at this time us Tana Dennison RAILCAR BRAKE OPERATOR URINE ORDERABLES Final Result [facility] TO EPIC CONVERSION documented in this encounter Visit Diagnoses Not on filedocumented in this encounter
--- OUTSIDE RECORDS SUMMARY | 2024-08-27 06:55 | XMS_ITS | Encounter Summary ---
Author Organization [facility] Address [facility]. [place], [place] [address] [place] [address] Care Team Providers Care Information Receptionist Name Role Phone Albert Ruby MD Primary Care Provider [phone] Tremayne Shi MD Unavailable [phone] Reason for Referral * Imaging (Emergency) - Closed Specialty Diagnoses / Procedures Referred By Ines borja Referred To Contact RADIOLOGY Procedures CT ABD+PEL W CON Ebenezer Wright MD [address] [place] [address] Phone: tel: fax: Referral ID Status Reason Start Date Expiration Date Visits Re quested Visits Authorized [id number] Closed 04/10/2020 05/11/2021 1 1 Reason for Visit * Reason Comments Abdominal Pain Vomiting Fever 9 Weeks To 74 Years Encounter Details Date Type Department Care Team (Late st Contact Info) Description 04/10/2020 7:53 PM CDT - 04/11/2020 12:40 AM CDT Emergency [facility] Emergency Room [place], [place] [id number] Ebenezer Wright MD [address] [place], [place] [address] Abdominal Pain; Vomiting; Fever 9 Weeks To [...] care by your primary care physician or audit consultant. Your medication list was reviewed prior [...] such as many narcotic drug combinations and okjj-lwf-nirrsvf cold medicines. Your feedback is important to us. Please fill out the survey you will get in the mail. We need yourinput to give you the best care possible! With your feedback we??ll know where we need to focus ourefforts to provide very good service to our patients! * Attachments The following attachments cannot be sent through Care Everywhere. * Lymphadenitis Discharge Instructions (Bhutanese) * Nausea and Vomiting Discharge Instructions, Adult (Bhutanese) * High Blood Pressure Discharge Instructions (Bhutanese) * Tachycardia Discharge Instructions (Bhutanese) documented in this encounter Medications at Time [...] End Date Taking? Authorizing Provider amoxicillin-clavulanate (AUGMENTIN) 398-125 MG tablet Take 1 tablet (875 mg [...] ECG [address] [facility] [address] [place] [address] Test Date: 2020-04-10 Pat Name: PRANAY GONZALEZ Department: Room: [id number] Gender: Female Geography Teacher: dori : 2000 Requested By: EBENEZER WRIGHT Order Number: [id number] Reading MD: Measurements Intervals [place] Rate: 94 P: 6 AK: 120 QRS: 12 QRSD: 98 T: -8 [...] COLOR (U) LIGHT YELLOW TRANSPARENCY CLEAR Specific [place] (U) 1.025 1.001 - 1.030 U PH [...] ABD+PEL W CON Final Result by User, [id number] (04/10 7727) EXAMINATION: ABDOMEN PELVIS CT WITH CONTRAST CLINICAL [...] ovaries: Unremarkable. No free fluid in the mvahqvojsixb-zx-gom. Bone window imaging: Degenerative intervertebral disc space [...] SPEC DESCRIPTION BLOOD 04/10/2020 10:[address] [facility] SPECIAL REQUESTS NO SPECIAL REQUEST 04/10/2020 10:[address] [facility] CULTURE RESULT NO GROWTH 5 DAYS 04/15/2020 12:[address] [facility] BLOOD SPECIMEN OBTAINED FOR BLOOD CULTURE / Unknown 04/10/2020 10:49 PM CDT 04/10/2020 10:57 PM CDT us Ebenezer Wright MD MICROBIOLOGY - GENERAL ORDERABL ES Final Result Performing Organization Address [facility] Co de Phone Number [facility] [address] [place] [address], * CULTURE, BACTERIA, BLOOD (04/10/2020 10:49 PM CDT) SPEC DESCRIPTION BLOOD 04/10/2020 10:[address] [facility] SPECIAL REQUESTS NO SPECIAL REQUEST 04/10/2020 10:[address] [facility] CULTURE RESULT NO GROWTH 5 DAYS 04/15/2020 12:[address] [facility] BLOOD SPECIMEN OBTAINED FOR BLOOD CULTURE / Unknown 04/10/2020 10:49 PM CDT 04/10/2020 10:57 PM CDT us Ebenezer Wright MD MICROBIOLOGY - GENERAL ORDERABL ES Final Result Performing Organization Address [facility] de Phone Number [facility] [address] [place] [address], * TROPONIN, QUANT (04/10/2020 10:49 PM CDT) TROPONIN I <0.015 <0.045 ng/mL. 04/10/2020 11:[address] [facility] Comment: HIGH DOSES OF BIOTIN MAY INTERFERE WITH THIS TEST RESULT. CORRELATION TO CLINICAL HISTORY AND PRESENTATION RECOMMENDED. 04/10/2020 10:4 9 PM CDT us Ebenezer Wright MD LABORATORY Final Result Performing Organization Address City/[facility] Co de Phone Number [facility] [address] [place] [address], * LACTIC ACID (04/10/2020 10:49 PM CDT) LACTIC ACID VENOUS 0.9 0.4 - 2.0 MMOL/L 04/10/2020 11:18 PM CDT [facility] 04/10/2020 10:4 9 PM CDT Ebenezer Wright MD LABORATORY Final Result Performing Organization Address [facility] Co de Phone Number [facility] [address] [place] [address], * ECG 12 lead (04/10/2020 10:31 PM CDT) 04/10/2020 10:3 1 PM CDT Narrative [facility] ([facility] - 04/11/2020 12:12 PM CDT ?[place] ? [address] [facility] [place] ? Test Date: ?2020-04-10 Pat Name: ? PRANAY GONZALEZ ?Department: ? Room: ? [id number] Gender: ? Female ? Geography Teacher: ?? kg : ?2000 ? Requested By: EBENEZER WRIGHT Order Number: [id number] ? Reading : ?? Loy Rangel ? Measurements Intervals ?[place] ? Rate: ? 94 ? P: ?6 AK: ? 120 ?QRS: ?12 QRSD: ? 98 ? T: ?-8 QT: ? 339 ? QTc: ?426 ? Interpretive Statements SINUS RHYTHM NONSPECIFIC T-WAVE ABNORMALITY Compared to ECG 08/06/2019 09:46:26 No significant changes Other ischemic changes, not STEMI Ebenezer Wright M.D. CRITICAL ALERT ISSUED ON 04-10-2020 22:34:14 Procedure Note Loy Rangel MD - 04/11/[address] Test Date: 2020-04-10 Pat Name: PRANAY GONZALEZ Department: Room: [id number] Gender: Female Geography Teacher: dori : 2000 Requested By: EBENEZER WRIGHT Order Number: [id number] Reading MD: Loy Rangel Measurements Intervals [place] Rate: 94 P: 6 AK: 120 QRS: 12 QRSD: 98 T: -8 QT: 339 QTc: 426 Interpretive Statements SINUS RHYTHM NONSPECIFIC T-WAVE ABNORMALITY Compared to ECG 08/06/2019 09:46:26 No significant changes Other ischemic changes, not STEMI Ebenezer Wright M.D. CRITICAL ALERT ISSUED ON 04-10-2020 22:34:14 Ebenezer Wright MD ECG ORDERABLES Final Result Performing Organization Address City/State/[facility] Co de Phone Number [facility] ([facility] RAD * POCT urine (04/10/2020 8:00 PM CDT) URINE HCG TEST negative NEGATIVE Internal Control performed as Expected? yes VALID Ebenezer Wright MD POINT OF CARE TEST ORDERABLES F inal Result * CULTURE URINE (04/10/2020 7:58 PM CDT) SPEC DESCRIPTION URINE CLEAN CATCH 04/10/2020 8:[address] [facility] SPECIAL REQUESTS NO SPECIAL REQUEST 04/10/2020 8:[address] [facility] CULTURE RESULT POLYMICROBIAL GROWTH CONSISTENT WITH NORMAL GENITAL NOVA. ?? SUSCEPTIBILITIES NOT ROUTINELY PERFORMED. 04/12/2020 9:[address] [facility] URINE SPECIMEN OBTAINED BY CLEAN CATCH PROCEDURE / Unknown 04/10/2020 7:58 PM CDT 04/10/2020 8:19 PM CDT us Ebenezer Wright MD MICROBIOLOGY - GENERAL ORDERABL ES Final Result [facility] [address] [place] [address], [place] [phone] * (ABNORMAL) URINALYSIS (04/10/2020 7:58 PM CDT) SPECIMEN TYPE URINE CLEAN CATCH 04/10/2020 7:[address] [facility] COLOR (U) LIGHT YELLOW 04/10/2020 8:[address] [facility] TRANSPARENCY CLEAR 04/10/2020 8:[address] [facility] SPECIFIC GRAVITY (U) 1.025 1.001 - 1.030 04/10/2020 8:[address] [facility] U PH 5.5 5.0 - 9.0 04/10/2020 8:[address] [facility] LEUKOCYTES (U) 25(A) NEGATIVE 04/10/2020 8:[address] [facility] NITRITES NEGATIVE NEGATIVE 04/10/2020 8:[address] [facility] PROTEIN (U) NEGATIVE <30 MG/DL 04/10/2020 8:[address] [facility] URINE GLUCOSE NORMAL NORMAL MG/DL 04/10/2020 8:[address] [facility] KETONES MG/DL (U) NEGATIVE NEGATIVE MG/DL 04/10/2020 8:[address] [facility] UROBILINOGEN NORMAL NORMAL MG/DL 04/10/2020 8:[address] [facility] BILIRUBIN (U) NEGATIVE NEGATIVE MG/DL 04/10/2020 8:[address] [facility] BLOOD (U) 3+(A) NEGATIVE 04/10/2020 8:[address] [facility] CULTURE & SENSITIVITY INDICATED? SPECIMEN SETUP FOR CULTURE 04/10/2020 8:[address] [facility] MUCUS FEW /LPF 04/10/2020 8:[address] [facility] WBC/HPF 4 <6 /HPF 04/10/2020 8:[address] [facility] RBC/HPF 3 <6 /HPF 04/10/2020 8:[address] [facility] SQUAMOUS EPITHELIALS FEW /HPF 04/10/2020 8:[address] [facility] URINE SPECIMEN OBTAINED BY CLEAN CATCH PROCEDURE / Unknown 04/10/2020 7:58 PM CDT us Ebenezer Wright MD URINE ORDERABLES Final Result Performing Organization Address City/[facility]/ZIP Co de Phone Number [facility] [address] [place] [address], [place] [phone] * (ABNORMAL) LIPASE (04/10/2020 7:55 PM CDT) LIPASE 68(L) 73 - 393 UNITS/L 04/10/2020 9:[address] [facility] 04/10/2020 7:55 PM CDT us Ebenezer Wright MD LABORATORY Final Result [facility] [address] [place] [address], [place] [phone] * (ABNORMAL) COMPREHENSIVE METABOLIC PANEL (04/10/2020 7:55 PM CDT) GLUCOSE 102(H) 70 - 99 MG/DL 04/10/2020 9:[address] [facility] BUN 10 7 - 18 MG/DL 04/10/2020 9:[address] [facility] CREATININE S/P/B 0.96 0.55 - 1.02 MG/DL 04/10/2020 9:[address] [facility] SODIUM S/P/B 139 136 - 145 MMOL/L 04/10/2020 9:[address] [facility] POTASSIUM S/P/B 3.8 3.5 - 5.1 MMOL/L 04/10/2020 9:[address] [facility] CHLORIDE S/P/B 109(H) 100 - 108 MMOL/L 04/10/2020 9:[address] [facility] CO2 22.5 21 - 32 MMOL/L 04/10/2020 9:01 PM [facility] CALCIUM S/P/B 9.0 8.5 - 10.1 MG/DL 04/10/2020 9:[address] [facility] BILIRUBIN TOTAL S/P/B 0.2 0.2 - 1.2 MG/DL 04/10/2020 9:01 PM [facility] Comment: THIS ASSAY IS NOT RECOMMENDED FOR PATIENTS UNDERGOING TREATMENT WITH ELTROMBOPAG DUE TO THE POTENTIAL FOR FALSELY ELEVATED RESULTS. TOTAL PROTEIN S/P/B 8.1 6.4 - 8.2 G/DL 04/10/2020 9:[address] [facility] ALBUMIN S/P/B 3.4 3.4 - 5.0 G/DL 04/10/2020 9:[address] [facility] AST 16 15 - 37 U/L 04/10/2020 9:01 PM [facility] ALT 29 14 - 55 U/L 04/10/2020 9:01 PM [facility] ALKALINE PHOSPHATASE S/P/B 105 50 - 136 U/L 04/10/2020 9:[address] [facility] ANION GAP 7.5 5 - 15 MMOL/L 04/10/2020 9:[address] [facility] BUN CREATININE RATIO 10.4 6 - 26 04/10/2020 9:[address] [facility] A/G RATIO 0.7(L) 1.0 - 2.0 RATIO 04/10/2020 9:[address] [facility] EGFR NON-AFR. AMER. 85(L) >90 ML/MIN/1.7 3 M2 04/10/2020 9:[address] [facility] EGFR AFR. AMER. >90 >90 ML/MIN/1.7 3 M2 04/10/2020 9:[address] [facility] Comment: NOTE: eGFR is not calculated for patients <18 years of age. This is an estimated GFR (CKD EPI) and should not be used for calculating drug doses. 04/10/2020 7:55 PM CDT Ebenezer Wright MD LABORATORY Final Result [facility] [address] [place] [address], [place] [phone] * (ABNORMAL) CBC W/DIFF AUTOMATED (04/10/2020 7:55 PM CDT) WBC 13.7(H) 4.5 - 13.0 x10'3/uL 04/10/2020 8:[address] [facility] RBC 4.89 4.20 - 5.40 x10'6/uL 04/10/2020 8:[address] [facility] HGB 11.9(L) 12.0 - 16.0 G/DL 04/10/2020 8:[address] [facility] HCT 37.4(L) 38.0 - 48.0 % 04/10/2020 8:[address] [facility] MCV 76.5(L) 81.0 - 99.0 FL 04/10/2020 8:[address] [facility] MCH 24.3(L) 27.0 - 31.0 PG 04/10/2020 8:[address] [facility] MCHC 31.8(L) 32.0 - 36.0 G/DL 04/10/2020 8:[address] [facility] RDW 15.5(H) 11.5 - 14.5 % 04/10/2020 8:[address] [facility] PLT 373 130 - 400 x10'3/uL 04/10/2020 8:[address] [facility] MPV 12.6(H) 9.3 - 12.2 FL 04/10/2020 8:[address] [facility] DIFFERENTIAL TYPE AUTOMATED DIFFERENTIAL 04/10/2020 8:[address] [facility] NEUTROPHILS % 63.2 % 04/10/2020 8:[address] [facility] LYMPHOCYTES % 29.6 % 04/10/2020 8:[address] [facility] MONOCYTES % 5.7 % 04/10/2020 8:[address] [facility] EOSINOPHILS 0.9 % 04/10/2020 8:[address] [facility] BASOPHILS 0.1 % 04/10/2020 8:[address] [facility] IMMATURE GRANS % 0.5 % 04/10/20 20 8:[address] [facility] ABS. NEUTROPHILS TOTAL 8.65(H) 1.80 - 8.00 x10'3/uL 04/10/2020 8:[address] [facility] ABS. LYMPHOCYTES 4.05 1.20 - 5.20 x10'3/uL 04/10/2020 8:[address] [facility] ABS. MONOCYTES 0.78 0.24 - 0.86 x10'3/uL 04/10/2020 8:[address] [facility] ABS. EOSINOPHILS 0.13 0.04 - 0.36 x10'3/uL 04/10/2020 8:[address] [facility] ABS. BASOPHILS 0.02 0.01 - 0.08 x10'3/uL 04/10/2020 8:[address] [facility] ABS. IMMATURE GRANULOCYTES 0.07 0.00 - 0.49 x10'3/uL 04/10/2020 8:[address] [facility] 04/10/2020 7:55 PM CDT Ebenezer Wright MD LABORATORY Final Result [facility] [address] [place] [address], [place] [phone] documented in this encounter Visit Diagnoses Diagnosis [...] Total Score: 9 08/05/20 19 9:19 AM HUB CUTTER APPRENTICE documented as of this encounter Care Teams Information Receptionist Relationship Specialty Start Date End Date Albert Ruby MD [address] [place] [address] 200 [facility] [place] [address] PCP - General FAMILY PRACTICE 05/16/18 Tremayne Shi MD [facility]. [facility] [address] [place] [address] EP Glass Furnace Tender CARDIOVASCULAR DISEASE 08/15/18 documented as of this encounter
--- OUTSIDE RECORDS SUMMARY | 2024-08-27 06:55 | XMS_ITS | Encounter Summary ---
Author Organization [facility] Address [address] [place] [address]. [place], [place] [address] [place] [address] Care Team Providers Care Meat Processor Name Role Phone Albert Brown MD Primary Care Provider [phone] Reason for Referral * Imaging (Routine) - Closed Specialty Diagnoses / Procedures Referred By Contac t Referred To Contact CARDIOLOGY DIAGNOSTICS Diagnoses Syncope, unspecified syncope type Palpitations Procedures Holter Monitor 48 Hr Rimma Ramirez MD [facility] [address] [place] [address] Phone: tel: fax: Referral ID Status Reason Start Date Expiration Date Visits Re quested Visits Authorized [id number] Closed 05/29/2018 06/29/2019 1 1 Reason for Visit * Reason Comments Consult Encounter Details Date Type Department Care Team (Late st Contact Info) Description 05/29/2018 11:15 AM CDT Office Visit [facility] [address] [place] [address] Rimma Ramirez MD Consult Social [...] 05/29/2018 11: 27 AM CDT Growth Chart: [facility] (Girls, 2- 20 Years) documented in this encounter Patient Instructions * Patient Instructions* Geoff Gonzalez RN - 05/29/2018 11:15 AM CDT Future Appointments Date Time Provider Department Center 06/08/2018 3:30 PM [facility] ON 06-08-18, ARRIVE AT 1:45 FOR A [...] unspecified documented in this encounter Care Teams Meat Processor Relationship Specialty Start Date End Date Albert Brown MD [address] [address] PCP - General FAMILY PRACTICE 05/16/18 documented as of this encounter
--- OUTSIDE RECORDS SUMMARY | 2024-08-27 06:55 | XMS_ITS | Encounter Summary ---
Author Organization [facility] Address [address] [place] [address]. 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 Holter applied successfully with good computer tracing. Patient was given instructions to continue with normal daily activities. They are not to ride alaMapMyFitnessn mower, use a chain saw or do [...] on filedocumented in this encounter Care Teams Meter Inspector Relationship Specialty Start Date End Date Albert Ruby MD [address] [address] PCP - General FAMILY PRACTICE 05/16/18 documented as of this encounter
--- OUTSIDE RECORDS SUMMARY | 2024-08-27 06:55 | XMS_ITS | Encounter Summary ---
Author Organization [facility] Address [address] [place] [address]. [place], [place] [address] [place] [address] Care Team Providers Care Manager Print Name Role Phone Vania Brown MD Primary Care Provider [phone] Bailey Izaguirre MD Unavailable [phone] Reason for Referral * Imaging (Routine) - Closed Specialty Diagnoses / Procedures Referred By Contac t Referred To Contact Diagnoses Inappropriate sinus node tachycardia ([facility]) Procedures CLINIC - HOLTER MONITOR - ECG UP TO 48 HRS,COMPLETE Bailey Izaguirre MD [facility]. [facility] [address] [place] [address] Phone: tel: fax: Bailey Izaguirre MD [facility]. [facility] [address] [place] [address] Phone: tel: fax: Referral ID Status Reason Start Date Expiration Date Visits Re quested Visits Authorized [id number] Closed 11/17/2020 12/18/2021 1 1 ONARY NURSE PRACTITIONER Reason for Visit * Reason Comments Palpitations 6 month check Syncope Encounter Details Date Type Department Care Team (Late st Contact Info) Description 11/17/2020 10:30 AM PULMONARY NURSE PRACTITIONER Office Visit [facility] [address] [place] [address] Bailey Izaguirre MD [address] [id number] Palpitations (6 month check ); Syncope Social [...] COVID-19? No / Unsure 11/17/2020 10:06 AM PULMONARY NURSE PRACTITIONER documented as of this encounter Last Filed Vital Signs Vital Sign Reading Time Taken Comments Blood Pressure 160/90 11/17/2020 10:09 AM PULMONARY NURSE PRACTITIONER Pulse 132 11/17/2020 10:09 AM PULMONARY NURSE PRACTITIONER Temperature - - Respiratory Rate - - Oxygen Saturation 100% 11/17/2020 10:09 AM PULMONARY NURSE PRACTITIONER Inhaled Oxygen Concentration - - Weight 121.6 kg (268 lb) 11/17/2020 10:09 AM PULMONARY NURSE PRACTITIONER Height 165.1 cm (5' 5 ) 11/17/2020 10:09 AM PULMONARY NURSE PRACTITIONER Body Mass Index 44.6 11/17/2020 10:09 AM PULMONARY NURSE PRACTITIONER documented in this encounter Patient Instructions * Patient Instructions* Tracy Guy - 11/17/2020 10:30 AM PULMONARY NURSE PRACTITIONER Patient Education Patient Education Tachycardia Discharge Instructions [...] Check with your doctor before taking any zfen-jpp-aalxrda drugs, nutritional supplements, or cold and allergy [...] You should avoid alcohol, energy drinks, and ltzy-zmv-yfbeiee stimulants. ?? Learn to manage stress. Use [...] or stroke. Where can I learn more? [employer] http://www.heart.org/HEARTORG/Conditions/Arrhythmia/AboutArrhythmia/Tachycardia- Srhs-Mcdcm-Mtin_VBT_833638_Tputfuc.jsp#.DTFiw1paYSQ Better Health Channel https://www.betterhealth.[place].gov.au/health/conditionsandtreatments/heart-arrhyth pvhh-xno-zvcmusfykohn Last Reviewed Date 2018-07-02 Consumer Information Use [...] right for you. Copyright Copyright ?? 2020 [employer]. and its affiliates and/or licensors. All rights reserved. ONARY NURSE PRACTITIONER documented in this encounter Progress Notes * Bailey Izaguirre MD - 11/17/2020 10:30 AM CST Images from the original note were not included. [place], [place] [address] Cardiac Electrophysiology Outpatient Progress Note Patient name: [...] function EKG: Sinus tachycardia Bailey Izaguirre MD [facility] Cardiac Electrophysiology ; ext. [phone] Pager: [phone] 11/18/2020 10:10 AM documented in this encounter Plan of Treatment Not on file documented as of this encounter Procedures Procedure Name Priority Date/Time Associated Diagnosis Comments ELECTROCARDIOGRAM (NON MIDMARK ACQUIRED) Routine 11/17/2020 10:17 AM PULMONARY NURSE PRACTITIONER Inappropriate sinus node tachycardia documented in this encounter Results * ELECTROCARDIOGRAM (11/17/2020 10:17 AM PULMONARY NURSE PRACTITIONER) 11/17/2020 10:1 7 AM PULMONARY NURSE PRACTITIONER Narrative [facility] - 11/17/2020 4:25 PM PULMONARY NURSE PRACTITIONER ?[facility], O? [place] ? Test Date: ?2020-11-17 Pat Name: ? PRANAY LISA ?Department: ? Room: ? Gender: ? Female ? Director Property: ?? : ?2000 ? Requested By: BAILEY GARCIAHION Order Number: [id number] ?Reading MD: ?? Bailey Hushion ? Measurements Intervals ?[place] ? Rate: ? 112 ?P: ?72 GA: ? 131 ?QRS: ?72 QRSD: ? 94 ? T: ?-8 QT: ? 282 ? QTc: ?386 ? Interpretive Statements SINUS TACHYCARDIA NONSPECIFIC ST & T-WAVE ABNORMALITY ONARY NURSE PRACTITIONER Procedure Note Bailey Izaguirre MD - 11/17/2020 [facility]? [facility] Test Date: 2020-11-17 Pat Name: PRANAY GONZALEZ Department: Room: Gender: Female Director Property: : 2000 Requested By: BAILEY IZAGUIRRE Order Number: [id number] Reading MD: Bailey Izaguirre Measurements Intervals [place] Rate: 112 P: 72 GA: 131 QRS: 72 QRSD: 94 T: -8 QT: 282 QTc: 386 Interpretive Statements SINUS TACHYCARDIA NONSPECIFIC ST & T-WAVE ABNORMALITY ONARY NURSE PRACTITIONER us Bailey Izaguirre MD PROCEDURES-ORDERABLE NO SUDHA RGE Final Result Performing Organization Address City/[facility]/ZIP Co de Phone Number [facility] * [...] Depression Total Score: 10 021 8:11 AM PULMONARY NURSE PRACTITIONER documented as of this encounter Care Teams Manager Print Relationship Specialty Start Date End Date Vania Brown MD [address] [facility] [address] [place] [address] PCP - General FAMILY PRACTICE 05/16/18 Bailey Izaguirre MD [facility]. [facility] [address] [place] [address] EP Bus Analyst CARDIOVASCULAR DISEASE 08/15/18 documented as of this encounter
--- OUTSIDE RECORDS SUMMARY | 2024-08-27 06:55 | XMS_ITS | Encounter Summary ---
Author Organization [facility] Address [facility]6 [facility]. [place], [place] [address] [place] [address] Care Team Providers Care Publishing Agent Name Role Phone Albert Ruby MD Primary Care Provider [phone] Tremayne Shi MD Unavailable [phone] Reason for Referral * Consultation (Routine) - Closed Specialty Diagnoses / Procedures Referred By Contanahy borja Referred To Contact GASTROENTEROLOGY Diagnoses Upper abdominal pain Albert Ruby MD [address] [place] [address] Phone: tel: fax: Abhishek Sellers MD [address] [place] [address] Phone: tel: fax: Referral ID Status Reason Start Date Expiration Date Visits Re quested Visits Authorized [id number] Closed 12/31/2020 01/30/2022 100 100 Scheduling Instructions ?? Daniel Finley 2000 is requesting a referral to the following provider. ?? Specialty: GI Specialist name: Dr. Velasquez Sellers Address/ Phone/ Fax: [phone] [place] [address] Appointment date: Does not have appointment yet. Diagnosis/ Problem: Upper abdominal pain Encounter Details Date Type Department Care Team (Late st Contact Info) Description 12/31/2020 Orders Only [facility] Medical Group Family and Sports Medicine - [place] [address] [place] [address] Albert Ruby MD [address] [facility] [address] [place] [address] Social History Tobacco Use Types Packs/Day Years [...] Depression Total Score: 10 021 8:11 AM SURVEYOR OIL WELL DIRECTIONAL documented as of this encounter Care Teams Publishing Agent Relationship Specialty Start Date End Date Albert Ruby MD [address] [facility] [address] [place] [address] PCP - General FAMILY PRACTICE 05/16/18 Tremayne Shi MD Three [facility]. [address] [place] [address] EP Pharmacist Manager CARDIOVASCULAR DISEASE 08/15/18 documented as of this encounter
--- OUTSIDE RECORDS SUMMARY | 2024-08-27 06:55 | XMS_ITS | Encounter Summary ---
Author Organization [facility] Address [address] [place] [address]. [place] [id number] Care Team Providers Care Electrotype Caster Name Role Phone Albert Ruby MD Primary Care Provider [phone] Reason for Visit * Reason Onset Date Comments Information 05/21/2018 need to verify S SN# and address - possible duplicate acct Encounter Details Date Type Department Care Team (Late st Contact Info) Description 05/21/2018 Telephone [facility] [address] [place] [address] Rimma Ramirez MD Information (need [...] SSN# and address. Possible duplicate acct in Psychiatric with documented in this encounter Plan of Treatment Not on file documented as of this encounter Visit Diagnoses Not on filedocumented in this encounter Care Teams Electrotype Caster Relationship Specialty Start Date End Date Albert Ruby MD [address] [address] PCP - General FAMILY PRACTICE 05/16/18 documented as of this encounter
--- OUTSIDE RECORDS SUMMARY | 2024-08-27 06:55 | XMS_ITS | Encounter Summary ---
Author Organization [facility] Address [address] [place] [address]. [place], [place] [address] [place] [address] Care Team Providers Care Embryology Professor Name Role Phone Albert Ruby MD Primary Care Provider [phone] Tremayne Shi MD Unavailable [phone] Encounter Details Date Type Department Care Team (Late st Contact Info) Description 04/21/2020 AddMyBestt Message Enc [facility] Medical Group Family and Sports Medicine - [place] [address] [place] [address] Albert Ruby MD [address] [address] RE: Question Social History Tobacco Use Types [...] Total Score: 9 08/05/20 19 9:19 AM CLUB CONCIERGE documented as of this encounter Care Teams Embryology Professor Relationship Specialty Start Date End Date Albert Ruby MD [address] [place] [address] [address] [place], [place] [address] PCP - General FAMILY PRACTICE 05/16/18 Tremayne Shi MD [facility]. [address] [place], [place] [id number] EP Supervisor Wood Room CARDIOVASCULAR DISEASE 08/15/18 documented as of this encounter
--- OUTSIDE RECORDS SUMMARY | 2024-08-27 06:55 | XMS_ITS | Encounter Summary ---
Author Organization [facility] Address [facility]6 [facility]. [place], [place] [address] [place] [address] Care Team Providers Care Woodworking Shop Hand Name Role Phone Albert Ruby MD Primary Care Provider [phone] Tremayne Shi MD Unavailable [phone] Encounter Details Date Type Department Care Team (Latest Contact Info) Description 05/24/2019 7:41 PM CDT - 05/24/2019 11:59 PM CDT Hospital Encounter [facility] [place], [place] [address] Albert Ruby MD [address] [place] [address] [address] [place] [address] Discharge Disposition: Home or Self Care (Routine [...] - 13.0 x10'3/uL 05/24/2019 9:22 PM CDT [facility] RBC 4.76 4.20 - 5.40 x10'6/uL 05/24/2019 9:22 PM CDT [facility] HGB 11.9(L) 12.0 - 16.0 G/DL 05/24/2019 9:22 PM CDT [facility] HCT 39.2 38.0 - 48.0 % 05/24/2019 9:22 PM CDT [facility] MCV 82.4 81.0 - 99.0 FL 05/24/2019 9:22 PM CDT [facility] MCH 25.0(L) 27.0 - 31.0 PG 05/24/2019 9:22 PM CDT [facility] MCHC 30.4(L) 32.0 - 36.0 G/DL 05/24/2019 9:22 PM CDT [facility] RDW 15.5(H) 11.5 - 14.5 % 05/24/2019 9:22 PM CDT [facility] PLT 365 130 - 400 x10'3/uL 05/24/2019 9:22 PM CDT [facility] MPV 12.4(H) 9.3 - 12.2 FL 05/24/2019 9:22 PM CDT [facility] DIFFERENTIAL TYPE AUTOMATED DIFFERENTIAL 05/24/2019 9:22 PM CDT [facility] NEUTROPHILS % 59.1 % 05/24/2019 9:22 PM CDT [facility] LYMPHOCYTES % 33.1 % 05/24/2019 9:22 PM CDT [facility] MONOCYTES % 6.0 % 05/24/2019 9:22 PM CDT [facility] EOSINOPHILS 1.4 % 05/24/2019 9:22 PM CDT [facility] BASOPHILS 0.2 % 05/24/2019 9:22 PM CDT [facility] IMMATURE GRANS % 0.2 % 05/24/20 19 9:22 PM CDT [facility] ABS. NEUTROPHILS TOTAL 6.06 1.80 - 8.00 x10'3/uL 05/24/2019 9:22 PM CDT [facility] ABS. LYMPHOCYTES 3.40 1.20 - 5.20 x10'3/uL 05/24/2019 9:22 PM CDT [facility] ABS. MONOCYTES 0.62 0.24 - 0.86 x10'3/uL 05/24/2019 9:22 PM CDT [facility] ABS. EOSINOPHILS 0.14 0.04 - 0.36 x10'3/uL 05/24/2019 9:22 PM CDT [facility] ABS. BASOPHILS 0.02 0.01 - 0.08 x10'3/uL 05/24/2019 9:[address] [facility] ABS. IMMATURE GRANULOCYTES 0.02 0.00 - 0.49 x10'3/uL 05/24/2019 9:22 PM T [facility] 05/24/2019 10:2 0 AM CDT Albert Ruby MD LABORATORY Final Result [facility] [address] [place] [address], [place] [phone] * HEMOGLOBIN, GLYCOSYLATED (05/24/2019 10:20 AM CDT) HGB A1C 5.2 4.2 - 6.3 % 05/24/2019 10:50 PM CDT [facility] Comment: ADA GUIDELINES 2010 5.7 TO 6.4% INCREASED RISK OF DIABETES > OR = 6.5% CONSISTENT WITH DIABETES ESTIMATED AVG GLUCOSE 103 mg/dL 05/24/2019 10:50 PM CDT [facility] 05/24/2019 10:2 0 AM CDT Albert Ruby MD LABORATORY Final Result [facility] [address] [place] [address], [place] [phone] * LIPID PANEL (05/24/2019 10:20 AM CDT) CHOLESTEROL 146 <200 MG/DL 05/24/2019 9:38 PM CDT [facility] TRIGLYCERIDES 83 <150 MG/DL 05/24/2019 9:38 PM CDT [facility] HDL 71 >40.0 MG/DL 05/24/2019 9:38 PM CDT [facility] LDL (CALCULATED) 58 <100 MG/DL 05/24/20 19 9:38 PM CDT [facility] NON HDL CHOLESTEROL 75 <130 MG/DL 05/24 9:38 PM CDT [facility] CHOL/HDL RATIO 2.1 0.0 - 4.5 05/24/2019 9:38 PM CDT [facility] VLDL CALCULATION 17 5 - 55 MG/DL 05/24/2019 9:38 PM CDT [facility] LIPID INTERPRETATION 05/24/2019 9:38 PM CDT [facility] Comment: NIH CONCENSUS REPORT RECOMMENDATIONS: [...] MD LABORATORY Final Result Performing Organization Address [facility] Co de Phone Number [facility] [address] [place] [address], * TSH W/REFLEX (05/24/2019 10:20 AM CDT) TSH 1.870 0.358 - 3.74 uIU/ML 05/24/2019 9:38 PM CDT [facility] Comment: HIGH DOSES OF BIOTIN MAY INTERFERE WITH THIS TEST RESULT. CORRELATION TO CLINICAL HISTORY AND PRESENTATION RECOMMENDED. FREE T4 NOT INDICATED 05/24/2019 10:2 0 AM CDT Albert Ruby MD LABORATORY Final Result Performing Organization Address [facility] Co de Phone Number [facility] [address] [place] [address], * THYROXINE, FREE (FT4) (05/24/2019 10:20 AM CDT) FREE T4 1.09 0.76 - 1.46 NG/DL 05/24/2019 9:38 PM CDT [facility] 05/24/2019 10:2 0 AM CDT Albert Ruby MD LABORATORY Final Result Performing Organization Address City/[facility] Co de Phone Number [facility] [address] [place] [address], * (ABNORMAL) COMPREHENSIVE METABOLIC PANEL (05/24/2019 10:20 AM CDT) [facility] GLUCOSE 76 70 - 99 MG/DL 05/24/2019 9:38 PM CDT [facility] BUN 12 7 - 18 MG/DL 05/24/2019 9:38 PM CDT [facility] CREATININE S/P/B 0.80 0.55 - 1.02 MG/DL 05/24/2019 9:38 PM CDT [facility] SODIUM S/P/B 141 136 - 145 MMOL/L 05/24/2019 9:38 PM CDT [facility] POTASSIUM S/P/B 4.5 3.5 - 5.1 MMOL/L 05/24/2019 9:38 PM CDT [facility] CHLORIDE S/P/B 107 100 - 108 MMOL/L 05/24/2019 9:38 PM CDT [facility] CO2 25.5 21 - 32 MMOL/L 05/24/2019 9:38 PM CDT [facility] CALCIUM S/P/B 9.2 8.5 - 10.1 MG/DL 05/24/2019 9:38 PM T [facility] BILIRUBIN TOTAL S/P/B 0.4 0.2 - 1.1 MG/DL 05/24/2019 9:38 PM T [facility] TOTAL PROTEIN S/P/B 7.3 6.4 - 8.2 G/DL 05/24/2019 9:38 PM T [facility] ALBUMIN S/P/B 3.5 3.4 - 5.0 G/DL 05/24/2019 9:38 PM T [facility] AST 8(L) 15 - 37 U/L 05/24/2019 9:38 PM CDT [facility] ALT 16 14 - 55 U/L 05/24/2019 9:38 PM CDT [facility] ALKALINE PHOSPHATASE S/P/B 86 50 - 136 U/L 05/24/2019 9:38 PM CDT [facility] ANION GAP 8.5 5 - 15 MMOL/L 05/24/2019 9:38 PM CDT [facility] BUN CREATININE RATIO 15.0 6 - 26 05/24/2019 9:38 PM CDT [facility] A/G RATIO 0.9(L) 1.0 - 2.0 RATIO 05/24/2019 9:38 PM CDT [facility] EGFR NON-AFR. AMER. >90 >90 ML/MIN/1.7 3 M2 05/24/2019 9:38 PM CDT [facility] EGFR AFR. AMER. >90 >90 ML/MIN/1.7 3 M2 05/24/2019 9:38 PM CDT [facility] Comment: NOTE: eGFR is not calculated for patients <18 years of age. This is an estimated GFR (CKD EPI) and should not be used for calculating drug doses. 05/24/2019 10:2 0 AM CDT Albert Ruby MD LABORATORY Final Result [facility] [address] [place] [address], documented in this encounter Visit Diagnoses Diagnosis Palpitations Tachycardia Tachycardia, unspecified Anxiety Anxiety state, unspecified Obesity due to excess calories, unspecified classification, unspecified whether serious comorbidity present documented in this encounter Care Teams Woodworking Shop Hand Relationship Specialty Start Date End Date Albert Ruby MD [address] [place] [address] PCP - General FAMILY PRACTICE 05/16/18 Tremayne Shi MD Three [facility]. [place] [address] [place] [address] EP Master Lay Out Specialist CARDIOVASCULAR DISEASE 08/15/18 documented as of this encounter
--- OUTSIDE RECORDS SUMMARY | 2024-08-27 06:55 | XMS_ITS | Encounter Summary ---
Author Organization [facility] Address [address] [place] [address]. [place] [address] [place] [address] Care Team Providers Care Game Warden Name Role Phone Unavailable Primary Care Provider Unavailabl e Encounter Details Date Type Department Care Team (Late st Contact Info) Description 04/11/2018 Abstract [facility] Medical Group Family Medicine - [place] [address] [facility], [address] [place] [address] Elisha Mccall APNP [address] [place] [address] Social History Tobacco Use Types Packs/Day Years [...] BY MOUTH EVERY NIGHT AT BEDTIME; Therapy: 69Ybp3830 to (Last Rx:28Feb2018) Requested for: 28Feb2018 Ordered 2. Citalopram Hydrobromide 20 MG Oral Tablet; TAKE 1 TABLET BY MOUTH EVERY DAY; Therapy: 01Uxd4309 to (Evaluate:26Sep2018) Requested for: 02Mar2018; Last Rx:28Feb2018 Ordered 3. Naproxen 500 MG Oral Tablet; TAKE 1 TABLET EVERY 12 HOURS NEEDED; Therapy: 24Nov2017 to (Evaluate:10Ibq9616) Requested for: 24Nov2017; Last Rx:24Nov2017 Ordered 4. ZyrTEC Allergy 10 MG Oral Tablet; TAKE 1 TABLET DAILY DIRECTED; Therapy: 26Ajw7198 to (Evaluate:46Uzt1628) Requested for: 28Feb2018; Last Rx:28Feb2018 Ordered Allergies [...] disease); HORACIO = N; Verified Transmission to [facility] [address]31; Last Updated By: Meghan Stevens; 04/11/2018 11:34:01 AM 2. Avoid alcoholic beverages.; Status:Complete; Done: 12Apr2018 08:06AM Ordered; For:GERD (gastroesophageal reflux disease); Ordered By:Elisha Mccall; 3. Call if: Breathing starts to have a wheeze or whistling sound.; Status:Complete; Done: 47Kty2130 08:06AM Ordered; For:GERD (gastroesophageal reflux disease); Ordered By:Elisha Mccall; 4. Avoid foods and beverages that contain caffeine.; Status:Complete; Done: 71Vvp1553 08:06AM Ordered; For:GERD (gastroesophageal reflux disease); Ordered By:Elisha Mccall; 5. Call if: Your voice is becoming hoarse, or scratchy sounding.; Status:Complete; Done: 50Djg1431 08:06AM Ordered; For:GERD (gastroesophageal reflux disease); Ordered By:Elisha Mccall; 6. Do not eat anything for at least 2 hours before going to bed.; Status:Complete; Done: 38Bhk7028 08:06AM Ordered; For:GERD (gastroesophageal reflux disease); Ordered By:Elisha Mccall; 7. Call 461 if: You experience a new kind of chest pain (angina) or pressure.; Status:Complete; Done: 85Ivd0921 08:06AM Ordered; For:GERD (gastroesophageal reflux disease); Ordered By:Elisha Mccall; 8. Do not take aspirin or anti-inflammatory medicines.; Status:Complete; Done: 76Xyt8215 08:06AM Ordered; For:GERD (gastroesophageal reflux disease); Ordered By:Elisha Mccall; 9. Seek Immediate Medical Attention if: You are vomiting any blood or material that looks black, or like coffee grounds.; Status:Complete; Done: 52Buz6579 08:06AM Ordered; For:GERD (gastroesophageal reflux disease); Ordered By:Elisha Mccall; 10. Eat small frequent meals.; Status:Complete; Done: 37Jor8769 08:06AM Ordered; For:GERD (gastroesophageal reflux disease); Ordered By:Elisha Mccall; 11. Seek Immediate Medical Attention if: You see any blood in the stool.; Status:Complete; Done: 90Pwp8545 08:06AM Ordered; For:GERD (gastroesophageal reflux disease); Ordered By:Elisha Mccall; 12. Regular aerobic exercise can help reduce stress.; Status:Complete; Done: 97Rla9393 08:06AM Ordered; For:GERD (gastroesophageal reflux disease); Ordered By:Elisha Mccall; 13. Several things can be done to help treat and prevent your gastric reflux.; Status:Complete; Done: 90Lrk0413 08:06AM Ordered; For:GERD (gastroesophageal reflux disease); Ordered By:Elisha Mccall; 14. We recommend that you bring your body mass index down to 25.; Status:Complete; Done: 64Igj4209 08:06AM Ordered; For:GERD (gastroesophageal reflux disease); Ordered By:Elisha Mccall; Insomnia 15. Amitriptyline HCl - 50 MG Oral Tablet; TAKE 1 TABLET AT BEDTIME Rx By: Elisha Mccall; Dispense: 90 Days ; #:90 Tablet; Refill: 3; For: Insomnia; HORACIO = N; Verified Transmission to [employer] Last Updated By: cookdinner; 04/11/2018 11:29:44 AM Migraine 16. SUMAtriptan Succinate 100 MG Oral Tablet; TAKE 1 TABLET FOR MIGRAINE RELIEF. MAY REPEAT 2 HOURS LATER. MAXIMUM 200MG/DAY Rx By: Elisha Mccall; Dispense: 10 Days ; #:30 Tablet; Refill: 2; For: Migraine; HORACIO = N; Verified Transmission to [employer] Last Updated By: cookdinner; 04/11/2018 11:29:43 AM 17. Be sure to get at least 8 hours of sleep every night.; Status:Complete; Done: 18Zgc9322 08:07AM Ordered; For:Migraine; Ordered By:Elisha Mccall; 18. Changes in your diet may help you prevent migraine headaches.; Status:Complete; Done: 82Ghy3626 08:07AM Ordered; For:Migraine; Ordered By:Elisha Mccall; 19. Decreasing the stress in your life may help your condition improve.; Status:Complete; Done: 97Mnh1802 08:07AM Ordered; For:Migraine; Ordered By:Elisha Mccall; 20. Keep a diary of when your symptoms occur.; Status:Complete; Done: 77Hju5032 08:07AM Ordered; For:Migraine; Ordered By:Elisha Mccall; Discussion/Summary Toradol shot given in office. Start Sumatriptan prn. Get plenty of rest, drink plenty of water. Increased Amitriptyline for Headache prevention. Start Omeprazole daily for GERD symptoms, avoid eatingbefore bed, avoid caffeine, citrus, tomato based products and spicy foods. F/U if not improving. Signatures Electronically signed by : Elisha Mccall APN; Apr 12 2018 8:09AM PMO LEAD (Author) * Generic Conversion MD Zeke - [...] disease); HORACIO = N; Verified Transmission to [employer] Last Updated By: Ouroboros; 04/11/2018 11:34:01 AM 2. Amitriptyline HCl - 50 MG Oral Tablet; TAKE 1 TABLET AT BEDTIME Rx By: Elisha Mccall; Dispense: 90 Days ; #:90 Tablet; Refill: 3; For: Insomnia; HORACIO = N; Verified Transmission to [employer] Last Updated By: cookdinner; 04/11/2018 11:29:44 AM 3. SUMAtriptan Succinate 100 MG Oral Tablet; TAKE 1 TABLET FOR MIGRAINE RELIEF. MAY REPEAT 2 HOURS LATER. MAXIMUM 200MG/DAY Rx By: Elisha Mccall; Dispense: 10 Days ; #:30 Tablet; Refill: 2; For: Migraine; HORACIO = N; Verified Transmission to [employer] Last Updated By: cookdinner; 04/11/2018 11:29:43 AM 4. Ketorolac Tromethamine 30 [...] December Ashley, ; Apr 11 2018 11:48AM PMO LEAD (Author) documented in this encounter Plan of Treatment Not on file documented as of this encounter Visit Diagnoses Not on filedocumented in this encounter
--- OUTSIDE RECORDS SUMMARY | 2024-08-27 06:55 | XMS_ITS | Encounter Summary ---
Author Organization [facility] Address [address] [place] [address]. [place], [place] [address] [place] [address] Care Team Providers Care Lead Electrical Controls Engineer Name Role Phone Vania Ruby MD Primary Care Provider [phone] Bailey Izaguirre MD Unavailable [phone] Reason for Visit * Reason Comments Tachycardia feeling lightheaded Encounter Details Date Type Department Care Team (Late st Contact Info) Description 05/23/2019 10:30 AM CDT Office Visit [facility] at [facility], [facility] [address] [place], [place] [id number] Bailey Izaguirre MD [facility]. [address] [place], [place] [id number] Tachycardia (feeling lightheaded ) Social History Tobacco [...] Written by the doctors and editors at [facility] What is tachycardia???--?? Tachycardia is [...] process is complete. This topic retrieved from [employer] on: January 30, 2019. Topic 84201 Version 12.0 Release: 27.2.3 - C27.145 ?2019??[employer]. and/or its affiliates.??All rights reserved. figure 1: Person having an ECG This drawing shows a man having an ECG (also called an electrocardiogram or EKG). He has patches, called electrodes, stuck onto his chest, arms, and legs. Wires run from the electrodes to the ECG machine. An ECG measures the electrical activity in the heart. Graphic 69188 Version 2.0 Consumer Information Use and Disclaimer [...] that is right for you.The use of [employer] content is governed by the [employer] Terms of Use. ??2019 [employer]. All rights reserved. Copyright ?2019??[employer]. and/or its affiliates.??All rights reserved. documented in this encounter Progress Notes * Vega Daley CMA - 05/23/2019 10:30 AM CDTAddended by: VEGA DALEY on: 05/23/2019 11:25 AM Modules accepted: Orders * Bailey Izaguirre MD - 05/23/2019 10:30 AM CDT Images from the original note were not included. [place], [place] [address] Cardiac Electrophysiology Outpatient Progress Note Patient name: [...] [facility] Card[facility] ; ext. [phone] Pager: [phone] 05/23/2019 10:52 AM documented in this encounter [...] 05/23/2019 10:51 AM CDT ?[facility] ? Test Date: ?2019-05-23 Pat Name: ? PRANAY BEARDENER ?Department: ? Room: ? Gender: ? Female ? Consumer Marketing Specialist: ?? rk : ?2000 ? Requested By: BAILEY IZAGUIRRE Order Number: [id number] ?Reading : ?? Bailey Izaguirre ? Measurements Intervals ?[place] ? Rate: ? 112 ?P: ?49 WA: ? 125 ?QRS: ?34 QRSD: ? 94 ? T: ?-11 QT: ? 332 ? QTc: ?454 ? Interpretive Statements SINUS TACHYCARDIA NONSPECIFIC T-WAVE ABNORMALITY ABNORMAL RHYTHM ECG Procedure Note Bailey Izaguirre MD - 05/23/2019 [facility] Test Date: 2019-05-23 Pat Name: PRANAY LISA Department: Room: Gender: Female Consumer Marketing Specialist: jesus : 2000 Requested By: BAILEY IZAGUIRRE Order Number: [id number] Reading MD: Bailey Izaguirre Measurements Intervals [place] Rate: 112 P: 49 WA: 125 QRS: 34 QRSD: 94 T: -11 QT: 332 QTc: 454 Interpretive Statements SINUS TACHYCARDIA NONSPECIFIC T-WAVE ABNORMALITY ABNORMAL RHYTHM ECG us Bailey Izaguirre MD PROCEDURES-ORDERABLE NO SUDHA RGE Final Result [facility] [address] [place] [address] documented in this encounter Visit Diagnoses Diagnosis 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 [address] [place], [place] [phone] EP Independent Living Instructor CARDIOVASCULAR DISEASE 08/15/18 documented as of this encounter
--- OUTSIDE RECORDS SUMMARY | 2024-08-27 06:55 | XMS_ITS | Encounter Summary ---
Author Organization [facility] Address [address] [place] [address]. [place] [address] Care Team Providers Care Special Education Science Teacher Name Role Phone Unavailable Primary Care Provider Unavailabl e Encounter Details Date Type Department Care Team (Latest Contact Info) Description 01/11/2018 Abstract [facility] Medical Group Social History Tobacco Use [...] Erika Hu MA; Jan 11 2018 9:45AM AIR SUPPORT OPERATIONS OPERATOR (Author) documented in this encounter Plan of Treatment Not on file documented as of this encounter Visit Diagnoses Not on filedocumented in this encounter
--- OUTSIDE RECORDS SUMMARY | 2024-08-27 06:55 | XMS_ITS | Encounter Summary ---
Author Organization [facility] Address [address] [place] [address]. [place] [address] [place] [address] Care Team Providers Care Biological Lab Technician Name Role Phone Albert Ruby MD Primary Care Provider [phone] Tremayne Shi MD Unavailable [phone] Reason for Visit * Reason Onset Date Comments Refill Request 10/15/2018 Citalopram refil l Encounter Details Date Type Department Care Team (Late st Contact Info) Description 10/15/2018 Telephone [facility] Family and Sports Medicine - [place] [address] [place] [address] Albert Ruby MD 670 [facility] 200 [place] [address] Refill Request (Citalopram refill) Social History Tobacco [...] on: 10/15/2018 10:20 AM Modules accepted: Orders FEEDER * Tory Asif - 10/15/2018 9:45 AM CST Need refill of Citalopram 20 mg sent to [facility] on [facility] in [facility]. Pt was last seen in April but is away at school and will not be in the area for a few more months. If she needs to be seen for this refill or if there are any questions please call pat Gurrola at [phone]. FEEDER documented in this encounter Plan of Treatment Not on file documented as of this encounter Visit Diagnoses Diagnosis Depression Depressive disorder, not elsewhere classified documented in this encounter Care Teams Biological Lab Technician Relationship Specialty Start Date End Date Albert Ruby MD [address] [place] [address] NNAMDI 200 [facility] [place] [address] PCP - General FAMILY PRACTICE 05/16/18 [facility] MD [facility] [address] [place] [address] EP Dry Boss CARDIOVASCULAR DISEASE 08/15/18 documented as of this encounter
--- OUTSIDE RECORDS SUMMARY | 2024-08-27 06:55 | XMS_ITS | Encounter Summary ---
Author Organization [facility] Address [address] [place] [address]. [place], [place] [address] [place] [address] Care Team Providers Care Automatic Mold Sander Name Role Phone Albert Brown MD Primary Care Provider [phone] Tremayne Shi MD Unavailable [phone] Reason for Visit * Reason Comments Anxiety Citalopram not worki ng Depression Follow Up needs routine labs Encounter Details Date Type Department Care Team (Late st Contact Info) Description 05/24/2019 9:40 AM CDT Office Visit [facility] Group Family and Sports Medicine - [place] [address] [place] [address] Albert Brown MD 670 [facility] 200 [place] [address] Anxiety (Citalopram not working); Depression; Follow Up [...] were not included. Primary and Specialty Care [place] Chief Complaint:: Anxiety (Citalopram not working); Depression; [...] file Gets together: Not on file Attends holiness service: Not on file Active member of [...] - 1.46 NG/DL 05/24/2019 9:38 PM CDT [facility] 05/24/2019 10:2 0 AM CDT Albert Brown MD LABORATORY Final Result Performing Organization Address City/[facility]/ZIP Co de Phone Number [facility] [address] [place] [address], [place] [phone] * TSH W/REFLEX (05/24/2019 10:20 AM CDT) Pathologist [facility] TSH 1.870 0.358 - 3.74 uIU/ML 05/24/2019 9:38 PM CDT [facility] Comment: HIGH DOSES OF BIOTIN MAY INTERFERE WITH THIS TEST RESULT. CORRELATION TO CLINICAL HISTORY AND PRESENTATION RECOMMENDED. FREE T4 NOT INDICATED 05/24/2019 10:2 0 AM CDT us Albert Brown MD LABORATORY Final Result Performing Organization Address [facility] Co de Phone Number [facility] [address] [place] [address], [place] [phone] * LIPID PANEL (05/24/2019 10:20 AM CDT) CHOLESTEROL 146 <200 MG/DL 05/24/2019 9:38 PM CDT [facility] TRIGLYCERIDES 83 <150 MG/DL 05/24/2019 9:38 PM CDT [facility] HDL 71 >40.0 MG/DL 05/24/2019 9:38 PM CDT [facility] LDL (CALCULATED) 58 <100 MG/DL 05/24/20 19 9:38 PM CDT [facility] NON HDL CHOLESTEROL 75 <130 MG/DL 05/24 9:38 PM T [facility] CHOL/HDL RATIO 2.1 0.0 - 4.5 05/24/2019 9:38 PM T [facility] VLDL CALCULATION 17 5 - 55 MG/DL 05/24/2019 9:38 PM [facility] LIPID INTERPRETATION 05/24/2019 9:38 PM T [facility] Comment: [facility] CONCENSUS REPORT RECOMMENDATIONS: ?ADULT ?CHILD ??LOW [...] Final Result Performing Organization Address [facility] Co de Phone Number [facility] [address] [place] [address], * HEMOGLOBIN, GLYCOSYLATED (05/24/2019 10:20 AM CDT) HGB A1C 5.2 4.2 - 6.3 % 05/24/2019 10:50 PM CDT [facility] Comment: ADA GUIDELINES 2010 5.7 TO 6.4% INCREASED RISK OF DIABETES > OR = 6.5% CONSISTENT WITH DIABETES ESTIMATED AVG GLUCOSE 103 mg/dL 05/24/2019 10:50 PM CDT [facility] 05/24/2019 10:2 0 AM CDT Albert Brown MD LABORATORY Final Result Performing Organization Address [facility] de Phone Number [facility] [address] [place] [address], * (ABNORMAL) CBC W/DIFF AUTOMATED (05/24/2019 10:20 AM CDT) WBC 10.3 4.5 - 13.0 x10'3/uL 05/24/2019 9:22 PM CDT [facility] RBC 4.76 4.20 - 5.40 x10'6/uL 05/24/2019 9:22 PM CDT [facility] HGB 11.9(L) 12.0 - 16.0 G/DL 05/24/2019 9:22 PM CDT [facility] HCT 39.2 38.0 - 48.0 % 05/24/2019 9:22 PM CDT [facility] MCV 82.4 81.0 - 99.0 FL 05/24/2019 9:22 PM CDT [facility] MCH 25.0(L) 27.0 - 31.0 PG 05/24/2019 9:22 PM CDT [facility] MCHC 30.4(L) 32.0 - 36.0 G/DL 05/24/2019 9:22 PM CDT [facility] RDW 15.5(H) 11.5 - 14.5 % 05/24/2019 9:22 PM CDT [facility] PLT 365 130 - 400 x10'3/uL 05/24/2019 9:22 PM CDT [facility] MPV 12.4(H) 9.3 - 12.2 FL 05/24/2019 9:22 PM CDT [facility] DIFFERENTIAL TYPE AUTOMATED DIFFERENTIAL 05/24/2019 9:22 PM CDT [facility] NEUTROPHILS % 59.1 % 05/24/2019 9:22 PM CDT [facility] LYMPHOCYTES % 33.1 % 05/24/2019 9:22 PM CDT [facility] MONOCYTES % 6.0 % 05/24/2019 9:22 PM CDT [facility] EOSINOPHILS 1.4 % 05/24/2019 9:22 PM CDT [facility] BASOPHILS 0.2 % 05/24/2019 9:22 PM CDT [facility] IMMATURE GRANS % 0.2 % 05/24/20 9:22 PM CDT [facility] ABS. NEUTROPHILS TOTAL 6.06 1.80 - 8.00 x10'3/uL 05/24/2019 9:22 PM CDT [facility] ABS. LYMPHOCYTES 3.40 1.20 - 5.20 x10'3/uL 05/24/2019 9:22 PM CDT [facility] ABS. MONOCYTES 0.62 0.24 - 0.86 x10'3/uL 05/24/2019 9:22 PM CDT [facility] ABS. EOSINOPHILS 0.14 0.04 - 0.36 x10'3/uL 05/24/2019 9:22 PM CDT [facility] ABS. BASOPHILS 0.02 0.01 - 0.08 x10'3/uL 05/24/2019 9:22 PM CDT [facility] ABS. IMMATURE GRANULOCYTES 0.02 0.00 - 0.49 x10'3/uL 05/24/2019 9:22 PM CDT [facility] 05/24/2019 10:2 0 AM CDT Albert Brown MD LABORATORY Final Result [facility] [address] [place] [address], [place] [phone] * (ABNORMAL) COMPREHENSIVE METABOLIC PANEL (05/24/2019 10:20 AM CDT) [facility] GLUCOSE 76 70 - 99 MG/DL 05/24/2019 9:38 PM CDT [facility] BUN 12 7 - 18 MG/DL 05/24/2019 9:38 PM CDT [facility] CREATININE S/P/B 0.80 0.55 - 1.02 MG/DL 05/24/2019 9:38 PM CDT [facility] SODIUM S/P/B 141 136 - 145 MMOL/L 05/24/2019 9:38 PM T [facility] POTASSIUM S/P/B 4.5 3.5 - 5.1 MMOL/L 05/24/2019 9:38 PM T [facility] CHLORIDE S/P/B 107 100 - 108 MMOL/L 05/24/2019 9:38 PM T [facility] CO2 25.5 21 - 32 MMOL/L 05/24/2019 9:38 PM T [facility] CALCIUM S/P/B 9.2 8.5 - 10.1 MG/DL 05/24/2019 9:38 PM T [facility] BILIRUBIN TOTAL S/P/B 0.4 0.2 - 1.1 MG/DL 05/24/2019 9:38 PM T [facility] TOTAL PROTEIN S/P/B 7.3 6.4 - 8.2 G/DL 05/24/2019 9:38 PM T [facility] ALBUMIN S/P/B 3.5 3.4 - 5.0 G/DL 05/24/2019 9:38 PM T [facility] AST 8(L) 15 - 37 U/L 05/24/2019 9:38 PM T [facility] ALT 16 14 - 55 U/L 05/24/2019 9:38 PM T [facility] ALKALINE PHOSPHATASE S/P/B 86 50 - 136 U/L 05/24/2019 9:38 PM T [facility] ANION GAP 8.5 5 - 15 MMOL/L 05/24/2019 9:38 PM T [facility] BUN CREATININE RATIO 15.0 6 - 26 05/24/2019 9:38 PM T [facility] A/G RATIO 0.9(L) 1.0 - 2.0 RATIO 05/24/2019 9:38 PM CDT [facility] EGFR NON-AFR. AMER. >90 >90 ML/MIN/1.7 3 M2 05/24/2019 9:38 PM CDT [facility] EGFR AFR. AMER. >90 >90 ML/MIN/1.7 3 M2 05/24/2019 9:38 PM CDT [facility] Comment: NOTE: eGFR is not calculated for patients <18 years of age. This is an estimated GFR (CKD EPI) and should not be used for calculating drug doses. 05/24/2019 10:2 0 AM CDT us Albert Brown MD LABORATORY Final Result [facility] [address] [place] [address], documented in this encounter Visit Diagnoses Diagnosis Palpitations- Primary Tachycardia Tachycardia, unspecified Anxiety Anxiety state, unspecified Obesity due to excess calories, unspecified classification, unspecified whether serious comorbidity present documented in this encounter Care Teams Automatic Mold Sander Relationship Specialty Start Date End Date Albert Brown MD [address] [place] [address] N[address] [place] [address] PCP - General FAMILY PRACTICE 05/16/18 Tremayne Shi MD [facility] Nnamdi [address] [place] [address] EP Barrel Roller CARDIOVASCULAR DISEASE 08/15/18 documented as of this encounter
--- OUTSIDE RECORDS SUMMARY | 2024-08-27 06:55 | XMS_ITS | Encounter Summary ---
Author Organization [facility] Address [address] [place] [address]. [place] [address] [place] [address] Care Team Providers Care Creel Operator Name Role Phone Albert Brown MD Primary Care Provider [phone] Tremayne Shi MD Unavailable [phone] Reason for Visit * Reason Comments Anxiety meds working well Encounter Details Date Type Department Care Team (Late st Contact Info) Description 08/05/2019 9:00 AM VICE PRESIDENT OF COMMUNICATIONS Office Visit [facility] Medical Group Family and Sports Medicine - [place] [address] [place] [address] Albert Brown MD 670 [facility] 200 [place] [address] Anxiety (meds working well) Social History Tobacco [...] Comments Blood Pressure 120/60 08/05/2019 9:15 AM VICE PRESIDENT OF COMMUNICATIONS Pulse 89 08/05/2019 9:15 AM VICE PRESIDENT OF COMMUNICATIONS Temperature - - Respiratory Rate - - Oxygen Saturation 98% 08/05/2019 9:15 AM VICE PRESIDENT OF COMMUNICATIONS Inhaled Oxygen Concentration - - Weight 115.2 kg (254 lb) 08/05/2019 9:15 AM VICE PRESIDENT OF COMMUNICATIONS Height 162.6 cm (5' 4 ) 08/05/2019 9:15 AM VICE PRESIDENT OF COMMUNICATIONS Body Mass Index 43.6 08/05/2019 9:15 AM VICE PRESIDENT OF COMMUNICATIONS documented in this encounter Progress Notes * [...] file Gets together: Not on file Attends episcopal service: Not on file Active member of [...] 150-35 MCG/24HR packet ALBERT BROWN MD 08/05/2019 PRESIDENT OF COMMUNICATIONS documented in this encounter Plan of Treatment Not on file documented as of this encounter Visit Diagnoses Diagnosis Anxiety- Primary Anxiety state, unspecified documented in this encounter Additional Health Concerns Assessment Noted Time PHQ-9 Depression Total Score: 9 08/05/20 19 9:19 AM VICE PRESIDENT OF COMMUNICATIONS documented as of this encounter Care Teams Creel Operator Relationship Specialty Start Date End Date Albert Brown MD [address] [place] [address] NNA[address] [place] [address] PCP - General FAMILY PRACTICE 05/16/18 Tremayne Shi MD [facility]. Nnamdi [address] [place] [address] [address] Manager CARDIOVASCULAR DISEASE 08/15/18 documented as of this encounter
--- OUTSIDE RECORDS SUMMARY | 2024-08-27 06:55 | XMS_ITS | Encounter Summary ---
Author Organization [facility] Address [address] [place] [address]. [place], [place] [address] [place] [address] Care Team Providers Care Software Configuration Engineer Name Role Phone Albert Ruby MD Primary Care Provider [phone] Encounter Details Date Type Department Care Team (Late st Contact Info) Description 06/08/2018 [facility] [address] [place] [address] Scanned, Documents Social History Tobacco [...] Palpitations documented in this encounter Care Teams Software Configuration Engineer Relationship Specialty Start Date End Date Albert Ruby MD [address] [address] PCP - General FAMILY PRACTICE 05/16/18 documented as of this encounter
--- OUTSIDE RECORDS SUMMARY | 2024-08-27 06:55 | XMS_ITS | Encounter Summary ---
Author Organization [facility] Address [address] [place] [address]. [place], [place] [address] [place] [address] Care Team Providers Care Aircraft Part Assembler Name Role Phone Albert Ruby MD Primary Care Provider [phone] Tremayne Shi MD Unavailable [phone] Encounter Details Date Type Department Care Team (Late st Contact Info) Description 09/29/2020 [employer] Message Enc [facility] Medical Group Family and Sports Medicine - [place] [address] [place] [address] Albert Ruby MD [address] [address] RE: Question Social History Tobacco Use Types [...] Total Score: 9 08/05/20 19 9:19 AM CLOTH TESTER documented as of this encounter Care Teams Aircraft Part Assembler Relationship Specialty Start Date End Date Albert Ruby MD 670 [facility] NNAMDI [address] [place] [address] PCP - General FAMILY PRACTICE 05/16/18 Tremayne Shi MD [facility] Nnamdi [address] [place], [place] [address] EP Onsite Health Coach CARDIOVASCULAR DISEASE 08/15/18 documented as of this encounter
--- OUTSIDE RECORDS SUMMARY | 2024-08-27 06:55 | XMS_ITS | Encounter Summary ---
Author Organization [facility] Address [address] [place] [address]. [place] [address] Care Team Providers Care Picu Nurse Name Role Phone Albert Ruby MD Primary Care Provider [phone] Tremayne Shi MD Unavailable Encounter Details Date [...] COVID-19? No / Unsure 11/13/2020 7:54 AM WOUND/OSTOMY NURSE documented as of this encounter Plan of Treatment Not on file documented as of this encounter Visit Diagnoses Not on filedocumented in this encounter Additional Health Concerns Assessment Noted Time PHQ-9 Depression Total Score: 10 021 8:11 AM WOUND/OSTOMY NURSE documented as of this encounter Care Teams Picu Nurse Relationship Specialty Start Date End Date Albert Ruby MD [address] [place] [address] 200 [place] [address] PCP - General FAMILY PRACTICE 05/16/18 Tremayne Shi MD [facility] [address] [place] [address] EP Angle Furnaceman CARDIOVASCULAR DISEASE 08/15/18 documented as of this encounter
--- OUTSIDE RECORDS SUMMARY | 2024-08-27 06:55 | XMS_ITS | Encounter Summary ---
Author Organization [facility] Address [address] [place] [address]. [place] [address] [place] [address] Care Team Providers Care Extractor Operator Solvent Process Name Role Phone Albert Ruby MD Primary Care Provider [phone] Tremayne Shi MD Unavailable [phone] Reason for Visit * Reason Onset Date Comments Medication Problem 10/28/2019 resend script Encounter Details Date Type Department Care Team (Late st Contact Info) Description 10/28/2019 Telephone [facility] Medical Group Family and Sports Medicine - [place] [address] [place] [address] Albert Ruby MD 670 [facility] 200 [place] [address] Medication Problem (resend script) Social History Tobacco [...] 0.25mg script was sent to [facility] in [place] but needed to be sent to [facility] in [place]. Please resend. INSPECTOR documented in this encounter Plan of Treatment Not on file documented as of this encounter Visit Diagnoses Not on filedocumented in this encounter Additional Health Concerns Assessment Noted Time PHQ-9 Depression Total Score: 9 08/05/20 19 9:19 AM TRAM INSPECTOR documented as of this encounter Care Teams Extractor Operator Solvent Process Relationship Specialty Start Date End Date Albert Ruby MD [address] [place] [address] NNAMDI [address] [facility] [address] PCP - General FAMILY PRACTICE 05/16/18 Tremayne Shi MD [facility] Nnamdi [address] [place], [place] [address] EP Manager Trading CARDIOVASCULAR DISEASE 08/15/18 documented as of this encounter
--- OUTSIDE RECORDS SUMMARY | 2024-08-27 06:55 | XMS_ITS | Encounter Summary ---
Author Organization [facility] Address [address] [place] [address]. [place], [place] [address] [place] [address] Care Team Providers Care Report Analyst Name Role Phone Albert Ruby MD Primary Care Provider [phone] Encounter Details Date Type Department Care Team (Late st Contact Info) Description 06/08/2018 Orders Only [facility] [address] [place] [address] Rimma Ramirez MD Social History [...] on filedocumented in this encounter Care Teams Report Analyst Relationship Specialty Start Date End Date Albert Ruby MD [address] [address] PCP - General FAMILY PRACTICE 05/16/18 documented as of this encounter
--- OUTSIDE RECORDS SUMMARY | 2024-08-27 06:56 | XMS_ITS | Encounter Summary ---
Author Organization [facility] Address [address] [place] [address]. [place] [address] [place] [address] Care Team Providers Care Job Service Specialist Name Role Phone Unavailable Primary Care Provider Unavailabl e Encounter Details Date Type Department Care Team (Late st Contact Info) Description 08/02/2017 Abstract [facility] Family Medicine - [place] [address] [facility], [address] [place] [address] Albert Ruby MD [address] [place] [address] 200 [place] [address] Social History Tobacco Use Types Packs/Day Years [...] Comments Blood Pressure 140/88 08/02/2017 1:16 PM GREENS LABORER Pulse - - Temperature - - Respiratory Rate - - Oxygen Saturation - - Inhaled Oxygen Concentration - - Weight 109.3 kg (241 lb) 08/02/2017 1:16 PM GREENS LABORER Height 165.1 cm (5' 5 ) 08/02/2017 1:16 PM GREENS LABORER Body Mass Index 40.1 08/02/2017 1:16 PM GREENS LABORER Body Mass Index Percentile 99.17% 08/02/2017 1:1 6 PM GREENS LABORER Growth Chart: CDC (Girls, 2- 20 Years) [...] MOUTH EVERY DAY Requested for: 12May2017; Last Rx:[id number] Ordered 2. HydrOXYzine HCl - 25 MG Oral Tablet; TAKE 1 TABLET BY MOUTH EVERY 4 TO 6 HOURS NEEDED; Therapy: [id number] to (Evaluate:18Jul2017) Requested for: 03Jul2017; Last Rx:[id number] Ordered 3. HydrOXYzine Pamoate 25 MG Oral Capsule; TAKE 1 CAPSULE BY MOUTH AT NIGHT NEEDED FOR SLEEP; Therapy: 55Sli3005 to (Evaluate:22Jun2017) Requested for: [id number]; Last Rx:[id number] Ordered 4. HydrOXYzine Pamoate CAPS; Therapy: (Recorded:[id number]) to Recorded 5. Montelukast Sodium 10 MG Oral Tablet; TAKE 1 TABLET DAILY; Therapy: 65Ymo2879 to (Evaluate:22Jul2017); Last Rx:[id number] Ordered 6. ZyrTEC Allergy 10 MG Oral Tablet; TAKE 1 TABLET DAILY DIRECTED; Therapy: [id number] to (Evaluate:20Sep2017); Last Rx:[id number] Ordered Allergies 1. No Known Drug Allergies [...] For: Anxiety; HORACIO = N; Sent To: [facility] [address] Discussion/Summary A&P 1- Anxiety: stable. continue current care f/u 1 month Signatures Electronically signed by : Albert Ruby M.D.; Aug 02 2017 1:35PM GREENS LABORER (Author) documented in this encounter Plan of Treatment Not on file documented as of this encounter Visit Diagnoses Not on filedocumented in this encounter
--- OUTSIDE RECORDS SUMMARY | 2024-08-27 06:56 | XMS_ITS | Encounter Summary ---
Author Organization [facility] Address [address] [place] [address]. [place] [address] Care Team Providers Care Seat Builder Name Role Phone Unavailable Primary Care Provider Unavailabl e Encounter Details Date Type Department Care Team (Latest Contact Info) Description 01/30/2017 Abstract [facility] Medical Group Social History Tobacco Use [...]
--- OUTSIDE RECORDS SUMMARY | 2024-08-27 06:56 | XMS_ITS | Encounter Summary ---
Author Organization [facility] Address [address] [place] [address]. [place] [address] Care Team Providers Care Bioinformatics Research Technician Name Role Phone Unavailable Primary Care Provider Unavailabl e Encounter Details Date Type Department Care Team (Latest Contact Info) Description 08/11/2017 Abstract [facility] Medical Group Social History Tobacco Use [...]
--- OUTSIDE RECORDS SUMMARY | 2024-08-27 06:56 | XMS_ITS | Encounter Summary ---
Author Organization [facility] Address [address] [place] [address]. [place] [address] Care Team Providers Care Electric Range Servicer Name Role Phone Unavailable Primary Care Provider Unavailabl e Encounter Details Date Type Department Care Team (Latest Contact Info) Description 2017 Abstract [facility] Medical Group Social History Tobacco Use Types [...]
--- OUTSIDE RECORDS SUMMARY | 2024-08-27 06:56 | XMS_ITS | Encounter Summary ---
Author Organization [facility] Address [address] [place] [address]. [place] [address] Care Team Providers Care Neighborhood Conservation Officer Name Role Phone Unavailable Primary Care Provider Unavailabl e Encounter Details Date Type Department Care Team (Latest Contact Info) Description 08/07/2017 Abstract [facility] Medical Group Social History Tobacco [...]
--- OUTSIDE RECORDS SUMMARY | 2024-08-27 06:56 | XMS_ITS | Encounter Summary ---
Author Organization [facility] Address [address] [place] [address]. [place], [place] [address] [place] [address] Care Team Providers Care Compliance Vice President Name Role Phone Albert Ruby MD Primary Care Provider [phone] Tremayne Shi MD Unavailable [phone] Encounter Details Date Type Department Care Team (Late st Contact Info) Description 12/01/2007 Abstract [facility] Emergency Room [address] [place] [address] Ramon Anthony MD [address] [place] [address] Social History Tobacco Use Types [...] on filedocumented in this encounter Care Teams Compliance Vice President Relationship Specialty Start Date End Date Albert Ruby MD 670 [facility] 200 [place] [address] PCP - General FAMILY PRACTICE 05/16/18 Tremayne Shi MD Three [facility]. [address] [address] EP Eligibility And Occupancy Interviewer CARDIOVASCULAR DISEASE 08/15/18 documented as of this encounter
--- OUTSIDE RECORDS SUMMARY | 2024-08-27 06:56 | XMS_ITS | Encounter Summary ---
Author Organization [facility] Address [address] [place] [address]. [place] [address] [place] [address] Care Team Providers Care Acid Tank Cleaner Name Role Phone Unavailable Primary Care Provider Unavailabl e Encounter Details Date Type Department Care Team (Late st Contact Info) Description 01/23/2017 Abstract [facility] Medical Group Family Medicine - [place] [address] [facility], [address] [place] [address] Albert Ruby MD [address] [place] [address] 200 [place] [address] Social History Tobacco Use Types Packs/Day Years [...] Albert Ruby M.D.; Jan 23 2017 10:00AM JOURNEYMAN CARPENTER (Author) documented in this encounter Plan of Treatment Not on file documented as of this encounter Visit Diagnoses Not on filedocumented in this encounter
--- OUTSIDE RECORDS SUMMARY | 2024-08-27 07:00 | XMS_ITS | Clinical Summary ---
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
--- OUTSIDE RECORDS SUMMARY | 2024-08-27 07:00 | XMS_ITS | Encounter Summary ---
Author Organization [facility] Healthcare Address [address] [place] [address] Care Team Providers Care Comfort Advisor Name Role Phone Unknown, Notinfile Primary Care Provider Unavail able Reason for Visit * Reason Comments Abdominal Pain Encounter Details Date Type Department Care Team (Late st Contact Info) Description 09/21/2021 4:16 PM REGIONAL ECONOMIST - 09/21/2021 8:40 PM REGIONAL ECONOMIST Emergency [facility] Emergency Department [address] [place] [id number] [place] [id number] [address] Radha Mendes MD [address] [place] [address] Abdominal pain (Primary Dx) Discharge Disposition: Discharge to home or self care Social History Tobacco Use Types Packs/Day Years Used Date Smoking Tobacco: Never Smokeless Tobacco: Never Comments No Sex and Gender Information Value Date Recorded Sex Assigned at Not on file Legal Sex Female 5:31 AM REGIONAL ECONOMIST Gender Identity Not on file Sexual Orientation Not on file documented as of this encounter Last Filed Vital Signs Vital Sign Reading Time Taken Comments Blood Pressure 110/67 09/21/2021 8:00 PM REGIONAL ECONOMIST Pulse 68 09/21/2021 8:00 PM REGIONAL ECONOMIST Temperature 36.7 ??C (98.1 ??F) 09/21/2021 1:10 PM CS T Respiratory Rate 18 09/21/2021 8:00 PM REGIONAL ECONOMIST Oxygen Saturation 99% 09/21/2021 8:00 PM REGIONAL ECONOMIST Inhaled Oxygen Concentration - - Weight 104.3 kg (230 lb) 09/21/2021 1:10 PM REGIONAL ECONOMIST Height 167.6 cm (5' 6 ) 09/21/2021 1:10 PM REGIONAL ECONOMIST Body Mass Index 37.12 09/21/2021 1:10 PM REGIONAL ECONOMIST documented in this encounter Discharge Diagnoses Diagnosis Left upper quadrant pain - LEFT UPPER QUADRANT PAIN Abdominal pain, left upper quadrant Left lower quadrant pain - LEFT LOWER QUADRANT PAIN Abdominal pain, left lower quadrant documented in this encounter Discharge Instructions * Attachments The following attachments cannot be sent through Care Everywhere. * Abdominal Pain, Unknown Cause, (Female) (Nigerien) * Symptoms With Uncertain Cause (Nigerien) documented in this encounter Medications at Time [...] tendency for uric acid stone formation. Source: [facility].Last revised 09-21-2017 CBC WITH AUTO DIFFERENTIAL - [...] 0.5 Basophil pct 0.[address] [facility] ONLY - Normal Rapid [...] (230 lb) SpO2 100% BMI 37.12 kg/m?? [facility] ED Course as of 09/21/211831 Time: 09/21 1546 Comment: Hiv negative By: Tamanna Hong NP This examination was transcribed using the [employer] voice recognition system without human datapower developer. In an effort to expedite patient care, this report has not been adjusted for typographical, grammatical, and syntax by a trained medical billing specialist. Close outpatient follow-up with a low threshold to return has been mandated , concerning symptoms have been emphasized in detail, and this patient expresses understanding AC Stewart MD, am the SOLO provider for this patient. Any documentation and charting performed by [facility] on and this medical record is solely for triage purposes only Signed out to Clinical Impression: Abdominal pain Ac Price MD 09/21/211831 ONAL ECONOMIST * Jeni Khan RN - 09/21/2021 1:11 PM CST Pt reports upper LUQ radiating to her back that began this morning. Pt also reports nausea/vomiting/diarrhea. Hx IBS. ONAL ECONOMIST documented in this encounter Miscellaneous Notes * ED Re-evaluation Note - Radha Mendes MD - 09/21/2021 8:27 PM REGIONAL ECONOMIST ED Re-evaluation Took over care pending CT scan. Discussed the CT findings with the patient. Patient with discharge home with medication. Close follow-up PCP recommended for further evaluation and treatment. Radha Mendes MD 09/21/212027 ONAL ECONOMIST * ED Triage Provider Note - Tamanna Hong NP - 09/21/2021 3:35 PM REGIONAL ECONOMIST Pt luq radiating to back for 2 days, worse today. Also with n/v/d. Denies blood in stool. Denies body aches fever chills. ONAL ECONOMIST documented in this encounter Plan of Treatment Not on file documented as of this encounter Procedures Procedure Name Priority Date/Time Associated Diagnosis Comments CT ABDOMEN PELVIS W CONTRAST ED 09/21/2021 5:56 PM REGIONAL ECONOMIST POCT RAPID HIV ANTIBODY COMMUNITY SCREENING-DAMARIS ELIGIBLE Routine 09/21/2021 5:12 PM REGIONAL ECONOMIST POCT HCG, URINE Routine 09/21/2021 5:00 PM REGIONAL ECONOMIST EGFR STAT 09/21/2021 4:38 PM REGIONAL ECONOMIST DIFFERENTIAL AUTO STAT 09/21/2021 4:3 8 PM REGIONAL ECONOMIST CBC WITH AUTO DIFFERENTIAL STAT 09/21/2021 4:38 PM REGIONAL ECONOMIST LIPASE STAT 09/21/2021 4:38 PM REGIONAL ECONOMIST AMYLASE STAT 09/21/2021 4:38 PM REGIONAL ECONOMIST COMPREHENSIVE METABOLIC PANEL STAT 09/21/2021 4:38 PM REGIONAL ECONOMIST URINALYSIS AND REFLEX TO MICROSCOPIC AND CULTURE STAT 09/21/2021 3:28 PM REGIONAL ECONOMIST documented in this encounter Results * CT Abdomen Pelvis W Contrast (09/21/2021 5:56 PM REGIONAL ECONOMIST) Anatomical Region Laterality Modality Body N/A Computed Tomogra phy 09/21/2021 6:42 PM REGIONAL ECONOMIST Impressions 09/21/2021 6:42 PM REGIONAL ECONOMIST No acute abdominal findings Electronically signed by: Prasad Vang M.D. Narrative 09/21/2021 6:42 PM REGIONAL ECONOMIST EXAMINATION: CT ABDOMEN AND PELVIS WITH IV [...] by: Prasad Vang M.D. Ac Price MD [facility] PROCEDURES Final Result * POCT rapid HIV (09/21/2021 5:12 PM REGIONAL ECONOMIST) [facility] Rapid HIV, POC Negative Negative Lot Number [id number] QC Control Line Acceptable Blood specimen (specimen) 09/21/2021 5:12 PM REGIONAL ECONOMIST Ac Price MD POINT OF CARE TEST ORDERABLES Final Result * POCT hCG, urine (09/21/2021 5:00 PM REGIONAL ECONOMIST) Pathologist [facility] HCG, ur, POC Negative Lot Number [id number] QC Backgroud Clear Acceptable QC Control Line Acceptable Urine 09/21/2021 5:00 PM REGIONAL ECONOMIST Tamanna Kelsey Hong NP POINT OF CARE TEST ORDE RABLES Final Result * eGFR (09/21/2021 4:38 PM REGIONAL ECONOMIST) Pathologist [facility] eGFR 114 mL/min/1. 73 m2 MORE JHAVERI [...] was last reviewed 2021. Testing performed by: [facility], [facility], [place] [address] Blood 09/21/2021 4:38 PM REGIONAL ECONOMIST 09/21/2021 4:47 PM REGIONAL ECONOMIST us Tamanna Cole Hal LEARNING SUPPORT SERVICES DIRECTOR LAB BLOOD ORDERABLES Fi nal Result [facility] [address] [address] Department [place] [address] * (ABNORMAL) Differential, auto (09/21/2021 4:38 PM REGIONAL ECONOMIST) Neutrophil abs 8.6(H) 1.7 - 6.5 K/cumm CERNER Comment:Testing performed by : [facility], [facility] [place] [address] Imm gran abs 0.0 0.0 - 0.1 K/cumm CERNER Comment:Testing performed by : [facility] [place] [address] Lymphocyte abs 3.4(H) 0.8 - 3.3 K/cumm CERNER Comment:Testing performed by : [address] [place] [address] Monocyte abs 0.7 0.2 - 0.8 K/cumm CERNER Comment:Testing performed by : [address] [address] Eosinophil abs 0.1 0.0 - 0.5 K/cumm CERNER Comment:Testing performed by : [place] [address] [place] [address] Basophil abs 0.0 0.0 - 0.1 K/cumm CERNER Comment:Testing performed by : [address] [place] [address] Neutrophil pct 67.1 % CERNER Comment: Interpretive Data Percent cell count reference ranges are not reported, since discordance with absolute values may lead to misinterpretation of CBC data. Current Interpretive Data was last revised on 2017. Testing performed by: [address] [address] Imm gran pct 0.2 % CERNER Comment: Interpretive Data Percent cell count reference ranges are not reported, since discordance with absolute values may lead to misinterpretation of CBC data. Current Interpretive Data was last revised on 2017. Testing performed by: [address] [place] [address] Lymphocyte pct 26.3 % [facility] Comment: Interpretive Data Percent cell count reference ranges are not reported, since discordance with absolute values may lead to misinterpretation of CBC data. Current Interpretive Data was last revised on 2017. Testing performed by: [facility], [address] [address] Monocyte pct 5.7 % [facility] Comment: Interpretive Data Percent cell count reference ranges are not reported, since discordance with absolute values may lead to misinterpretation of CBC data. Current Interpretive Data was last revised on 2017. Testing performed by: [facility], [address] [address] Eosinophil pct 0.5 % [facility] Comment: Interpretive Data Percent cell count reference ranges are not reported, since discordance with absolute values may lead to misinterpretation of CBC data. Current Interpretive Data was last revised on 2017. Testing performed by: [facility], [facility] [place] [address] Basophil pct 0.2 % [facility] Comment: Interpretive Data Percent cell count reference ranges are not reported, since discordance with absolute values may lead to misinterpretation of CBC data. Current Interpretive Data was last revised on 2017. Testing performed by: [facility], [place] [address] Blood 09/21/2021 4:38 PM REGIONAL ECONOMIST 09/21/2021 4:47 PM REGIONAL ECONOMIST Tamanna Hong LEARNING SUPPORT SERVICES DIRECTOR LAB BLOOD ORDERABLES Fi nal Result [place] [address] [address] Department [place] [address] * Lipase (09/21/2021 4:38 PM REGIONAL ECONOMIST) Lipase 16 10 - 99 Units/L MORE JHAVERI Comment:Testing performed by : [facility], [place] [address] Blood 09/21/2021 4:38 PM REGIONAL ECONOMIST 09/21/2021 4:47 PM REGIONAL ECONOMIST [facility] LEARNING SUPPORT SERVICES DIRECTOR LAB BLOOD ORDERABLES Fi nal Result Performing Organization Address [facility] Co de Phone Number [facility] [address] [address] [facility] [place] [address] * (ABNORMAL) Amylase (09/21/2021 4:38 PM REGIONAL ECONOMIST) Amylase 29(L) 30 - 99 Units/L CERNER CH Comment:Testing performed by : [address], [place] [address] Blood 09/21/2021 4:38 PM REGIONAL ECONOMIST 09/21/2021 4:47 PM REGIONAL ECONOMIST [facility] LAB BLOOD ORDERABLES Fi nal Result Performing Organization Address [facility] de Phone Number [facility] [address] [address] [facility] [place] [address] * (ABNORMAL) Comprehensive metabolic panel (09/21/2021 4:38 PM REGIONAL ECONOMIST) Pathologist [facility] Sodium 132(L) 135 - 145 mmol/L CERNER CH Comment:Testing performed by : [address], [place] [address] Potassium, pl 4.1 3.3 - 4.9 mmol/L CERNER CH Comment:Testing performed by : [address], [place] [address] Chloride 99 97 - 110 mmol/L CERNER CH Comment:Testing performed by : [address], [place] [address] CO2 24 22 - 32 mmol/L CERNER CH Comment:Testing performed by : [facility] [address], [place] [address] Anion gap 9 2 - 15 mmol/L CERNER CH Comment:Testing performed by : [facility] [address], [place] [address] BUN 10 8 - 25 mg/dL CERNER CH Comment:Testing performed by : [facility] [address], [place] [address] Creatinine 0.76 0.60 - 1.10 mg/dL CERNER CH Comment:Testing performed by : [facility] [address], [place] [address] Glucose 88 70 [...] was last revised 2017. Testing performed by: [facility] [address], [place] [address] Calcium 9.7 8.5 - 10.3 mg/dL CERNER Comment:Testing performed by : [facility] [address], [place] [address] Bilirubin, total 0.2 0.1 - 1.2 mg/dL CERNER Comment:Testing performed by : [facility] [address], [place] [address] Protein, pl 8.2 6.5 - 8.5 g/dL CERNER Comment:Testing performed by : [facility] [address], [place] [address] Albumin 4.3 3.5 - 5.0 g/dL CERNER Comment:Testing performed by : [facility] [address], [place] [address] Alk phos 135(H) 40 - 130 Units/L CERNER Comment:Testing performed by : [facility] [address], [place] [address] ALT 22 7 - 45 Units/L CERNER Comment:Testing performed by : [facility] [address], [place] [address] AST 18 10 - 45 Units/L CERNER Comment:Testing performed by : [facility] [place] [address] Blood 09/21/2021 4:38 PM REGIONAL ECONOMIST 09/21/2021 4:47 PM REGIONAL ECONOMIST us Tamanna Hong NP LAB BLOOD ORDERABLES Fi nal Result [facility] [address] Department [place] [address] * (ABNORMAL) CBC with auto differential (09/21/2021 4:38 PM REGIONAL ECONOMIST) [facility] WBC 12.8(H) 3.8 - 9.9 K/cumm CERNER CH Comment:Testing performed by : [facility] [address], [place] [address] Hgb 12.0 11.9 - 15.5 g/dL CERNER CH Comment:Testing performed by : [facility] [address], [place] [address] Hct 38.3 35.6 - 45.5 % CERNER CH Comment:Testing performed by : [facility] [address], [place] [address] Plt 364 150 - 400 K/cumm CERNER CH Comment:Testing performed by : [facility] [address], [place] [address] MPV 12.1 9.1 - 12.3 fL CERNER CH Comment:Testing performed by : [facility] [address], [place] [address] RBC 4.97 3.90 - 5.20 M/cumm CERNER CH Comment:Testing performed by : [facility] [address], [place] [address] MCV 77.1(L) 81.3 - 96.4 fL CERNER CH Comment:Testing performed by : [facility] [address], [place] [address] MCH 24.1(L) 27.1 - 33.3 pg CERNER CH Comment:Testing performed by : [facility] [address], [place] [address] MCHC 31.3(L) 32.3 - 35.7 g/dL CERNER CH Comment:Testing performed by : [facility] [address], [place] [address] RDW CV 14.6 11.1 - 14.9 % CERNER CH Comment:Testing performed by : [facility] [address], [place] [address] RDW SD 40.5 35.7 - 48.1 fL CERNER CH Comment:Testing performed by : [facility] [address], [place] [address] Blood 09/21/2021 4:38 PM REGIONAL ECONOMIST 09/21/2021 4:47 PM REGIONAL ECONOMIST us Tamanna Cole Hong LEARNING SUPPORT SERVICES DIRECTOR LAB BLOOD ORDERABLES Fi nal Result [facility] [address] [address] Department [place] [address] * (ABNORMAL) Urinalysis reflex to microscopic and culture Urine (09/21/2021 3:28 PM REGIONAL ECONOMIST) Color, ur Yellow Yellow CERNER CH Comment:Testing performed by : [facility], [place] [address] Clarity, ur Cloudy(A) Clear CERNER CH Comment:Testing performed by : [facility], [place] [address] Specific gravity, ur 1.019 1.003 - 1.030 CERNER CH Comment:Testing performed by : [facility], [place] [address] pH, urine 6.0 CERNER CH Comment:Testing performed by : [facility], [place] [address] Protein, ur ql Negative Negative CERNER CH Comment:Testing performed by : [facility], [place] [address] Glucose, ur ql Negative Negative CERNER CH Comment:Testing performed by : [facility], [address] [place] [address] Ketones, ur Negative Negative CERNER CH Comment:Testing performed by : [facility] [address], [place] [address] Bilirubin, ur Negative Negative CERNER CH Comment:Testing performed by : [facility] [address], [place] [address] Blood, ur Negative Negative CERNER CH Comment:Testing performed by : [facility], [address] [address] Urobilinogen, ur <2.0 <2.0 mg/dL CERNER CH Comment:Testing performed by : [facility] [address], [place] [address] Nitrite, ur Negative Negative CERNER CH Comment:Testing performed by : [facility] [address], [place] [address] Leukocyte esterase, ur Negative Negative CERNER CH Comment:Testing performed by : [facility] [address], [place] [address] UA reflex comment Reflex conditions for microscopic UA and culture not met. MORE JHAVERI Comment:Testing performed by : [facility], [address] [place] [address] Urine 09/21/2021 3:28 PM REGIONAL ECONOMIST 09/21/2021 3:36 PM REGIONAL ECONOMIST Narrative MORE JHAVERI - 09/21/2021 3:43 PM REGIONAL ECONOMIST ?? Urine pH is affected by diet, medications, systemic acid-base disturbances, and renal tubular function. ??pH may affect urinary stone formation. ??For example, urine pH below 6.0 may help reduce the tendency for calcium phosphate stones and pH greater than 6.0 may reduce the tendency for uric acid stone formation. Source: [employer]. Last revised 09-21-2017 us Tamanna Hong NP LAB MICROBIOLOGY - GENE RAL ORDERABLES Final Result [place] [address] [address] Department [place] [address] documented in this encounter Visit [...] 1 dose Contrast Given 09/21/2021 5:46 PM REGIONAL ECONOMIST 94 mL ketorolac (TORADOL) 30 mg/mL (1 mL) injection 30 mg 30 mg, intravenous, Once, On Mon09/21/21 at 1721, For 1 dose, For Adult IV push, administer over 15 seconds Given 09/21/2021 5:25 PM REGIONAL ECONOMIST 30 mg documented in this encounter Active and Recently Administered Medications Times are shown in REGIONAL ECONOMIST. Scheduled Medication Order 09/19/2021 09/20/2021 09/21/2021 ketorolac [...] 09/21/2021 documented in this encounter Care Teams Comfort Advisor Relationship Specialty Start Date End Date Unknown, Notinfile PCP - General 09/21/21 05/01/23 documented as of this encounter
--- OUTSIDE RECORDS SUMMARY | 2024-08-27 07:00 | XMS_ITS | Encounter Summary ---
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 Gender Identity Not on file Sexual Orientation [...] CDT) 05/02/2023 12:5 7 PM CDT Narrative [facility] - 05/02/2023 3:43 PM CDT Vent Rate: 91 bpm RR Interval: 654 msec NV Interval: 136 msec QRS Duration: 94 msec QT Interval: 336 msec QTC Interval: 385 msec P-R-T Willow: 11 - 10 - -19 degrees SINUS [...] Rojo MD ECG ORDERABLES Fin al Result [facility] documented in this encounter Visit Diagnoses Not on filedocumented in this encounter Care Teams Email Engineer Relationship Specialty Start Date End Date Unknown, Notinfile PCP - General 05/02/23 documented as of this encounter
--- OUTSIDE RECORDS SUMMARY | 2024-08-27 07:00 | XMS_ITS | Encounter Summary ---
Author Organization [facility] Healthcare Address [address] [place] [address] Care Team Providers Care Veterinarian Helper Name Role Phone Unknown, Notinfile Primary Care Provider Unavail able Encounter Details Date Type Department Care Team (Late st Contact Info) Description 09/23/2021 6:35 PM MANAGER [facility] Lab [address] [address] Social History Tobacco Use Types Packs/Day Years Used Date Smoking Tobacco: Never Smokeless Tobacco: Never Comments No Sex and Gender Information Value Date Recorded Sex Assigned at Not on file Legal Sex Female 5:31 AM MANAGER MULTIMEDIA Gender Identity Not on file Sexual Orientation Not on file documented as of this encounter Plan of Treatment Not on file documented as of this encounter Procedures Procedure Name Priority Date/Time Associated Diagnosis Comments VARICELLA ZOSTER ANTIBODY, IGG Routine 09/23/2021 11:52 AM MANAGER MULTIMEDIA documented in this encounter Results * Varicella Zoster IgG antibody Blood (09/23/2021 11:52 AM MANAGER MULTIMEDIA) VZV IgG Nonreactive Nonreactive [facility] Comment:No IgG antibodies sp ecific to Varicella Zoster virus detected.?? Patient is presumed not to have had a previous exposure to Varicella Zoster through??infection or vaccination. ?? Blood 09/23/2021 11:5 2 AM MANAGER MULTIMEDIA 09/23/2021 6:32 PM MANAGER M[employer]IMEDIA Sly Garner IV, MD LAB MICROBIOLO GY - GENERAL ORDERABLES Final Result MORE [facility] [place] [address] documented in this encounter Visit Diagnoses Not on filedocumented in this encounter Care Teams Veterinarian Helper Relationship Specialty Start Date End Date Unknown, Notinfile PCP - General 09/21/21 05/01/23 documented as of this encounter
--- OUTSIDE RECORDS SUMMARY | 2024-08-27 07:00 | XMS_ITS | Encounter Summary ---
Author Organization [facility] Care Team Providers Care Cook Relief Name Role Phone Unavailable Primary Care Provider Unavailabl e Encounter Details Date Type Department Care Team (Late st Contact Info) Description 11/14/2015 - 12/15/2015 11:59 PM CDT Hospital Encounter [facility] [place] [address] [address] Social History Tobacco Use Types Packs/Day Years Used Date Smoking Tobacco: Never Assessed Comments Unknown Sex and Gender Information Value Date Recorded Sex Assigned at Not on file Legal Sex Female 5:31 AM REGULATOR OPERATOR Gender Identity Not on file Sexual Orientation Not on file documented as of this encounter Plan of Treatment Not on file documented as of this encounter Visit Diagnoses Not on filedocumented in this encounter
--- OUTSIDE RECORDS SUMMARY | 2024-08-27 07:00 | XMS_ITS | Encounter Summary ---
Author Organization [facility] Facility Care Team Providers Care Door Repairman Name Role Phone Unavailable Primary Care Provider Unavailabl e Encounter Details Date Type Department Care Team (Latest Contact Info) Description 06/27/2015 10:49 AM CDT - 06/27/2015 11:59 PM CDT Hospital Encounter [facility] [place] [address] [place] [address] Pain in right ankle; Other specified retained foreign body fragments Social History Tobacco Use Types Packs/Day Years Used Date Smoking Tobacco: Never Assessed Comments Unknown Sex and Gender Information Value Date Recorded Sex Assigned at Not on file Legal 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 ACC# ??Date Time ??Exam [id number] Jun 27, 2015 10:40:00 [id number] ANKLE 2 VIEWS UNILATERAL R EXAMINATION: ?? [...] This document has been electronically signed by: ELEK PEACOCK M.D. on Jun 27 2015 ??1:19P Procedure Note Provider, MD Chelly - 01/14/2017 Dougie HART M.D. FINAL REPORT The radiology attending physician has personally reviewed this study, and has reviewed and/or edited this written report and agrees with it. ACC# Date Time Exam [id number] Jun 27, 2015 10:40:00 [id number] ANKLE 2 VIEWS UNILATERAL R EXAMINATION: Right [...]
--- OUTSIDE RECORDS SUMMARY | 2024-08-27 07:00 | XMS_ITS | Encounter Summary ---
Author Organization [facility] Healthcare Address [address] [place] [address] Care Team Providers Care Flarer Name Role Phone Unavailable Primary Care Provider Unavailabl e Encounter Details Date Type Department Care Team (Latest Contact Info) Description 12/30/2013 10:00 AM CDT Hospital Encounter [facility] OP Joseph Slade MD [address] [place] [address] Body mass index, pediatric, greater than or equal to 95th percentile for age Social History Tobacco Use Types Packs/Day Years Used Date Smoking Tobacco: Never Assessed Comments Unknown Sex and Gender Information Value Date Recorded Sex Assigned at Not on file Legal 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 Use caution when comparing results from different methodologies and/or manufacturers. METHOD: [employer] Chemiluminescent technology TEST INFORMATION: Vitamin D, 25 Hydroxy This assay accurately quantifies the sum of vitamin D3, 25-hydroxy and vitamin D2, 25-hydroxy. REFERENCE RANGES: ?Deficiency: ? < 20 ng/mL ?Insufficiency: ? 20-29 ng/mL ?Optimum level: ?30-100 ng/mL ?Possible toxicity: ?>100 ng/mL No pediatric reference range established. 12/30/2013 10:2 0 AM CDT 12/30/2013 10:27 AM CDT Narrative [facility] HISTORICAL RESULTS - 12/30/2013 11:04 AM CDT FASTING 12HRS us Joseph Slade MD LAB BLOOD ORDERABLES Final Re sult [facility] HISTORICAL RESULTS * Hemoglobin A1c (12/30/2013 10:20 AM CDT) Pathologist [facility] Hemoglobin A1c % 5.8 4.8 - 5.9 % 12/30/2013 12:32 PM CDT [facility] HISTORICAL RESULTS Comment: As of 2010 Method: ??ESTER Sondra 6000 using turbidometric inhibition immunoassay procedure. Results obtained are comparable to results obtained using previous methodology (HPLC). [place] [employer] recommends that the goal of therapy should be an A1C hemoglobin of <7%. Reevaluate the treatment regimen in patients with an A1C >8%. 12/30/2013 10:2 0 AM CDT 12/30/2013 10:27 AM [facility] - 12/30/2013 12:32 PM CDT FASTING 12HRS Joseph Slade MD LAB BLOOD ORDERABLES Final Re sult Performing Organization Address [facility] Co de Phone Number [facility] HISTORICAL RESULTS * ALT (12/30/2013 10:20 AM CDT) ALT 26 0 - 33 U/L 12/30/2013 10:57 AM CDT [facility] HISTORICAL RESULTS 12/30/2013 10:2 0 AM CDT 12/30/2013 10:27 AM CDT [facility] HISTORICAL RESULTS - 12/30/2013 10:57 AM CDT FASTING 12HRS Joseph Slade MD LAB BLOOD ORDERABLES Final Re sult Performing Organization Address [facility] de Phone Number [facility] HISTORICAL RESULTS * AST (12/30/2013 10:20 AM CDT) AST 16 15 - 50 U/L 12/30/2013 10:57 AM CDT [facility] HISTORICAL RESULTS 12/30/2013 10:2 0 AM CDT 12/30/2013 10:27 AM CDT [facility] HISTORICAL RESULTS - 12/30/2013 10:57 AM CDT FASTING 12HRS Joseph Slade MD LAB BLOOD ORDERABLES Final Re sult Performing Organization Address [facility] de Phone Number [facility] HISTORICAL RESULTS * Lipid panel (12/30/2013 10:20 AM CDT) Triglycerides 52 0 - 199 mg/dL 12/30/2013 10:57 AM CDT [facility] HISTORICAL RESULTS Comment:12 hr pc highly sher mmended for Triglyceride Cholesterol 112 0 - 199 mg/dL 12/30/2013 10:57 AM CDT [facility] HISTORICAL RESULTS Comment: Borderline: ??200-239 High Risk: ?? >239 HDL Cholesterol 48 40 - 60 mg/dL 12/30/2013 10:57 AM CDT [facility] HISTORICAL RESULTS Comment: Major Risk ?< 40 mg/dL Moderate Risk ?40-60 mg/dL Negative Risk ?? > 60 mg/dL LDL Cholesterol, Calc 54 0 - 130 mg/dL 12/30/2013 10:57 AM CDT [facility] HISTORICAL RESULTS Comment:High Risk > 159 mg/d L Cholesterol/HDL Ratio 2.3 Comment: Cholesterol / HDL Ratio 3.5:1 or less is desirable. Cholesterol / HDL Ratio greater than 5:1 is considered higher risk for developing heart disease. 

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
--- OUTSIDE RECORDS SUMMARY | 2024-08-27 07:00 | XMS_ITS | Referral Summary ---
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
--- OUTSIDE RECORDS SUMMARY | 2024-08-27 07:01 | XMS_ITS | Encounter Summary ---
Author Organization [facility] Address [address] [facility] [facility] [place] [address] Phone Care Team Providers Care Bush Hog Operator Name Role Phone Albert Ruby MD Primary Care Provider [phone] Reason for Visit * Reason Onset Date Comments Appointment 12/26/2023 Encounter Details Date Type Department Care Team (Late st Contact Info) Description 12/26/2023 Telephone [facility] - Family Medicine [facility] [address] [place] [address] Prema Carlos, MANAGER DATABASE ADMINISTRATION, BOOT REPAIRER [address] [place] [address] Appointment Social History Tobacco Use Types Packs/Day [...] no, she was only supposed to see manager site her PCP put in a referral for [...] on filedocumented in this encounter Care Teams Bush Hog Operator Relationship Specialty Start Date End Date Albert Ruby MD [address] [address] PCP - General Family Medicine 12/26/23 documented as of this encounter
--- OUTSIDE RECORDS SUMMARY | 2024-08-27 07:01 | XMS_ITS | Encounter Summary ---
Author Organization [facility] Address [address] [place] [address] Phone Care Team Providers Care Account Management Specialist Name Role Phone Albert Ruby MD Primary Care Provider [phone] Reason for Visit * Reason Comments Migraine Encounter Details Date Type Department Care Team (Latest Contact Info) Description 05/07/2024 9:55 AM CDT Urgent Care Visit [facility] [place] [address] [place] [address] Aura Torre, INDUSTRIAL TRUCK MECHANIC, BILLING CONTROL CLERK [address] [place] [address] Other migraine without status migrainosus, [...] this encounter Patient Instructions * Patient Instructions* Arua Torre APRN, CNP - 05/07/2024 9:55 AM CDT Continue with excedrin as discussed per package directions Discussed red flag signs of when to seek emergency medical care. If symptoms persist follow up with pcp * Attachments The following attachments cannot be sent through Care Everywhere. * General Headache Without Cause Rfoc-ad-Fcbp (Arabic) documented in this encounter Progress Notes * [...] is a 23 y.o. female in the [facility] today for headache for 2 days. [...] Ventrogluteal documented in this encounter Care Teams Account Management Specialist Relationship Specialty Start Date End Date Albert Ruby MD [address] [address] PCP - General Family Medicine 12/26/23 documented as of this encounter
--- OUTSIDE RECORDS SUMMARY | 2024-08-27 07:01 | XMS_ITS | Encounter Summary ---
Author Organization [facility] Address [address] [place] [address] Care Team Providers Care Needleworker Name Role Phone Bailey Hastings MD Primary Care Provider [phone] Reason for Visit * Reason Comments Fever st,lethargic x 2 day s. Fever up to 101. Meds:Mucinex Encounter Details Date Type Department Care Team (Late st Contact Info) Description 01/21/2013 11:30 AM CDT Office Visit [facility] [place] [address] [place] [address] [address] [place] [phone] Bailey Hastings MD [address] [facility] [address] [place] [address] Sore throat (Primary Dx); Strep throat Social History Tobacco Use Types Packs/Day Years Used Date Smoking Tobacco: Never Assessed Alcohol Use Standard Drinks/Week Comments No 0 (1 standard drink = 0.6 oz pur e alcohol) Sex and Gender Information Value Date Recorded Sex Assigned at Not on file Gender Identity Not on file Sexual Orientation Not on file documented as of this encounter Last Filed Vital Signs Vital Sign Reading Time Taken Comments Blood Pressure 106/60 01/21/2013 11:21 AM CDT Pulse - - Temperature 37.4 ??C (99.3 ??F) 01/21/2013 11:21 AM C DT Respiratory Rate - - Oxygen Saturation - - Inhaled Oxygen Concentration - - Weight 80.7 kg (178 lb) 01/21/2013 11:21 AM CDT Height 158.8 cm (5' 2.5 ) 01/21/2013 11:21 AM CD T Body Mass Index 32.04 01/21/2013 11:21 AM CDT Body Mass Index Percentile 98.34% 01/21/2013 11: 21 AM CDT Growth Chart: [facility] (Girls, 2- 20 Years) documented in this encounter Progress Notes * Bailey Hastings MD - 01/21/2013 11:45 AM CDT Sore throat, chills, and low grade fever. Friend at school had strep dx at end of last week +cough, congestion BP 106/60 Temp(Src) 99.3 ??F (37.4 ??C) (Tympanic) Ht 62.5 (158.8 cm) Wt 80.74 kg (178 lb) BMI 32.02 kg/m2 Alert, No acute distress, non-toxic appearing Ears-clear tm's bilaterally Throat-+2-3 tonsils, mild erythema +enlarged LN's in neck bilaterally Nose-no rhinorhea Chest-clear to auscultation bilaterally Heart-regular rate and rhythm , no murmur Skin- no rash (462) Sore throat - Plan: POC RAPID STREP A, amoxicillin (AMOXIL) 875 mg Oral tablet (034.0) Strep throat - Plan: POC RAPID STREP A, amoxicillin (AMOXIL) 875 mg Oral tablet * Christina Carlson - 01/21/2013 11:40 AM CDT Results for orders placed in visit on 01/21/13 POC RAPID STREP A Result Value Range RAPID STREP Positive (*) Negative documented in this encounter Plan of Treatment Not on file documented as of this encounter Procedures Procedure Name Priority Date/Time Associated Diagnosis Comments POC RAPID STREP A ANTIGEN Routine 01/21/2013 11:40 AM CDT Sore throat Strep throat documented in this encounter Results * (ABNORMAL) POC RAPID STREP A (01/21/2013 11:40 AM CDT) RAPID STREP Positive(A ) Negative [facility] Specimen from throat (specimen) 01/21/2013 11:40 AM CDT Bailey Hastings MD POINT OF CARE TESTI [facility] documented in this encounter Visit Diagnoses Diagnosis Sore throat- Primary Acute pharyngitis Strep throat Streptococcal sore throat documented in this encounter Care Teams Needleworker Relationship Specialty Start Date End Date Bailey Hastings MD PCP - General 10/29/08 12/09/15 documented as of this encounter
--- OUTSIDE RECORDS SUMMARY | 2024-08-27 07:01 | XMS_ITS | Encounter Summary ---
Author Organization [facility] Address [address] [place] [address] Care Team Providers Care Ride Operator Name Role Phone Bailey Hastings MD Primary Care Provider Reason for Visit * Reason Comments Vomiting Started vomiting thi s morning. Also with a fever, has been 101.2. Med:None Encounter Details Date Type Department Care Team (Late st Contact Info) Description 09/29/2011 9:30 AM MILLED LUMBER GRADER Office Visit [facility] [place] [address] [place] [address] [address] [place] [address] Grace Velázquez, FREIGHT SEPARATOR [address] [facility] [address] [place] [address] Pharyngitis (Primary Dx); Vomiting Social History Tobacco Use Types Packs/Day Years [...] Sign Reading Time Taken Comments Blood Pressure 114/66 09/29/2011 9:46 AM MILLED LUMBER GRADER Pulse - - Temperature 36.9 ??C (98.4 ??F) 09/29/2011 9:46 AM CS T Respiratory Rate - - Oxygen Saturation - - Inhaled Oxygen Concentration - - Weight 69.4 kg (153 lb) 09/29/2011 9:46 AM MILLED LUMBER GRADER Height 149.9 cm (4' 11 ) 09/29/2011 9:46 AM MILLED LUMBER GRADER Body Mass Index 30.9 09/29/2011 9:46 AM MILLED LUMBER GRADER Body Mass Index Percentile 98.63% 09/29/2011 9:4 6 AM MILLED LUMBER GRADER Growth Chart: [facility] (Girls, 2- 20 Years) documented in this encounter Progress Notes * Grace Velázquez NP - 09/29/2011 9:48 AM CST Chief Complaint Patient presents with ??? Vomiting Started vomiting this morning. Also with a fever, has been 101.2. Med:None HPI: Patient woke with vomiting and fever today. Temp up to 101.2 when she first woke this AM. Patient has been able to keep some gatorade down. No diarrhea. C/o slight sore throat today. No cough orrunny nose. No headache. O: General: Appears tired, well nourished Eyes: Clear Ears: Both T.M.'s clear Nose: Clear Throat: No erythema Neck: No swollen or tender nodes Lungs: CTA Skin: No rash A: Pharyngitis/Vomiting, likely viral P: Rapid strep: Negative. Send throat culture to confirm. Recommended tylenol prn fever. Counseled regarding slow oral rehydration with gatorade or powerade. Supportive care, normal progression and call back reviewed. Follow up with throat culture results and prn. ED LUMBER GRADER documented in this encounter Plan of Treatment Not on file documented as of this encounter Procedures Procedure Name Priority Date/Time Associated Diagnosis Comments POC RAPID STREP A ANTIGEN Routine 09/29/2011 9:57 AM MILLED LUMBER GRADER Pharyngitis documented in this encounter Results * STREPTOCOCCUS GROUP A CULTURE (09/29/2011 5:07 PM MILLED LUMBER GRADER) FINAL MICRO REPORT No Group A, C, or G beta Streptococcus isolated. [facility] [employer] [facility] Specimen of unknown material (specimen) SPECIMEN FROM THROAT / Unknown 09/29/2011 5:07 PM MILLED LUMBER GRADER 09/29/2011 6:39 PM MILLED LUMBER GRADER Comment:THROAT Grace Velázquez NP MICROBIOLOGY - NUIL ORDERABLES [facility] CLIA# [id number] [address] [place] [address] * POC RAPID STREP A (09/29/2011 9:57 AM MILLED LUMBER GRADER) RAPID STREP Negative [facility] Specimen from throat (specimen) Grace Velázquez FREIGHT SEPARATOR POINT OF CARE [facility] documented in this encounter Visit Diagnoses Diagnosis Pharyngitis- Primary Acute pharyngitis Vomiting Vomiting alone documented in this encounter Care Teams Ride Operator Relationship Specialty Start Date End Date Bailey Hastings MD PCP - General 10/29/08 12/09/15 documented as of this encounter
--- OUTSIDE RECORDS SUMMARY | 2024-08-27 07:01 | XMS_ITS | Encounter Summary ---
Author Organization [facility] Address [address] [place] [address] Care Team Providers Care Cdl Dedicated Truck Driver Name Role Phone Bailey Hastings MD Primary Care Provider [phone] Reason for Visit * Reason Comments Well Child 12 year Encounter Details Date Type Department Care Team (Late st Contact Info) Description 05/01/2013 9:00 AM CDT Office Visit [facility] [place] [id number] [place] [address] [address] [place] [address] Bailey Hastings MD [address] [facility] [address] [place] [address] Well child check (Primary Dx); Obesity Social History Tobacco Use Types Packs/Day Years [...] Sign Reading Time Taken Comments Blood Pressure 102/60 05/01/2013 8:30 AM CDT Pulse 74 05/01/2013 8:30 AM CDT Temperature - - Respiratory Rate - - Oxygen Saturation - - Inhaled Oxygen Concentration - - Weight 88.5 kg (195 lb) 05/01/2013 8:30 AM CDT Height 157.5 cm (5' 2 ) 05/01/2013 8:30 AM CDT Body Mass Index 35.67 05/01/2013 8:30 AM CDT Body Mass Index Percentile 99.39% 05/01/2013 8:3 0 AM CDT Growth Chart: CDC (Girls, 2- 20 Years) documented in this encounter Progress Notes * Bailey Hastings MD - 05/01/2013 8:55 AM CDT Subjective: History was provided by the patient, mother. Laura Finley is a 12 y.o. female who presents for this well exam visit. Patient Active Problem List Diagnosis Date Noted ??? Abdominal pain 01/13/2011 ??? Allergic rhinitis 01/06/2011 ??? Achrochordon 01/05/2010 Current Outpatient Prescriptions on File Prior to Visit Medication Sig Dispense Refill ??? albuterol 90 mcg/Actuation Inhalation HFAA inhaler Take 2 Puffs by inhalation every 6 hours as needed for Other (See Comment) (cough). 17 Gram 0 ??? lansoprazole (PREVACID SOLUTAB) 30 mg Oral TbLD Take 1 Tab by mouth daily before breakfast. 30 Tab 1 No current facility-administered medications on file prior to visit. Allergies Allergen Reactions ??? Apple Juice Nausea and Vomiting Past Medical History Diagnosis Date ??? Asthma ??? Bowel disease ??? Allergy season allergies ??? GI problem abd pain RL side Past Surgical History Procedure Laterality Date ??? Pt denies relevant surgical history Family History Problem Relation Age of Onset ??? Healthy Father ??? Healthy Mother ??? Healthy Sister History Substance Use Topics ??? Smoking status: Not on file ??? Smokeless tobacco: Not on file ??? Alcohol Use: No Current Issues: Current concerns include weight gain. Concerns regarding hearing or vision? no Review of Nutrition Balanced diet? yes; will eat some fruits/veggies but lots of fast food Drinks milk? yes; Social Screening: School: [employer] Sports/Activities: none Making appropriate grades in school? yes Difficulties with peer interaction? no Concerns regarding behavior with peers? no Adequate sleep? yes - about 7-8 hours Work: no Work issues:no If applicable: Menses: regular every 28-30 days Adol Behaviors: Denies alcohol, cigarettes and sexual activity Sports Physical: Any history of Concussion, Syncopal Episodes, Palpitations, or Trouble breathing in Sports? no Objective: Filed Vitals: 05/01/13 0830 BP: 102/60 Pulse: 74 Height: 62 (157.5 cm) Weight: 88.451 kg (195 lb) Wt Readings from Last 3 Encounters: 05/01/13 88.451 kg (195 lb) (99.07%*) 01/21/13 80.74 kg (178 lb) (98.41%*) 10/30/12 79.833 kg (176 lb) (98.50%*) * Growth percentiles are based on CDC 2-20 Years data. Ht Readings from Last 3 Encounters: 05/01/13 62 (157.5 cm) (38.32%*) 01/21/13 62.5 (158.8 cm) (51.07%*) 10/30/12 62.5 (158.8 cm) (56.24%*) * Growth percentiles are based on CDC 2-20 Years data. Body mass index is 35.66 kg/(m^2). 99%ile based on CDC 2-20 Years BMI-for-age data. 99%ile based on CDC 2-20 Years vysexl-ews-jud data. 38%ile based on CDC 2-20 Years xogjwzc-gwn-wcr data. Growth parameters are noted and are not appropriate for age. Objective: General: active, alert, in no distress, social Skin: dry, normal - no rash and well perfused Head normal appearance, normal palate, normal cephalic, atraumatic and normal oropharynx Oral cavity: No perioral or gingival cyanosis or lesions. Tongue is normal in appearance., normal mucosa Eyes: normal corneal light reflex, pupils equal and reactive, sclerae white Ears: Normal TMs bilaterally Nose nares patent and septum midline Neck: Supple, no masses, no thyromegaly Lungs: breath sounds equal, clear to auscultation bilaterally, no retractions, no stridor, normal respiratory effort Heart: regular rate and rhythm, S1, S2 normal, no murmur, click, rub or gallop Abdomen: Soft, non-tender. Bowel sounds normal. No masses, no organomegaly. : examination not indicated Female stage 4 - coarse, curly, abundant, but amount less than in adult stage 4 - areola and papilla form secondary mound Extremities: extremities normal, atraumatic, no cyanosis or edema, intact distal pulses, moves all extremities equally, no edema, normal strength, normal tone Back inspection of back is normal (straight without defect) Neuro: alert, oriented, normal speech, no focal findings or movement disorder noted, neck supple without rigidity, cranial nerves II through XII intact, DTR's normal and symmetric, motor and sensory grossly normal bilaterally, normal muscle tone, no tremors, strength 5/5 Assessment: Healthy exam Other Diag: (V20.2) Well child check - Plan: HPV VACCINE 3 DOSE IM, TDAP VACCINE >7 YO IM (278.00) Obesity - Plan: LIPID PANEL, COMPREHENSIVE METABOLIC PANEL, TSH Plan: 1. Anticipatory guidance: Adequate Sleep, Physical Activity, Athletic Conditioning, Fluids, Body Changes, Sexual Feelings, Abstinence, How to Say NO, Control, STD's, Safer Sex, Condum Use, Drugs, Alcohol, Tobacco (chew), Smoke-Free Environment (diet pills, steroids), Handle Anger, Conflict Resolution, Peer Pressure, Peer Refusal, Protective Sports Gear (helmets, mouthguards, gear), Seat Belts, Speed, Limits, Helmet Use, See Dentist and Three Meals with Nutritious Snacks (healthy food choices), Iron, Calcium, Sugar, Fat If BMI 85% or greater, discussed diet and exercise with patient and parent 2. Laboratory screening a. Hyperlipidemia screening: :Severe obesity (BMI > 95%) 3. Immunizations today: see immunization orders in EHR No History of previous adverse reactions to immunizations Guardisil/HPV: #2 given and tdap 4. Assess teeth development and oral hygiene - teeth cleaning 5. PPD: not indicated 6. See EMR for orders, medications, patient instructions, referrals, and follow-up. 7. Teen depression scale score 0. Discussed with patient. documented in this encounter Miscellaneous Notes * Patient Instructions - Merlyn Goff - 05/01/2013 8:48 AM CDT Middle Adolescence Development 13 to 18 years 05/01/2013 BP 102/60 Pulse 74 Ht 62 (157.5 cm) Wt 88.451 kg (195 lb) BMI 35.66 kg/m2 Body mass index is 35.66 kg/(m^2). 99%ile based on CDC 2-20 Years BMI-for-age data. 99%ile based on CDC 2-20 Years gilnyk-aav-qff data. 38%ile based on CDC 2-20 Years pzztzat-hmy-acq data. DESCRIPTION An increased importance and role of the peer group generally characterize middle adolescence. The teen struggles between independence and dependence when thinking about life goals. PHYSICAL DEVELOPMENT Physical growth and development may vary among this age group. The teen will: ?? Experience most changes associated with puberty ?? Have a great focus on body image - Teens give attention to weight, clothing, cosmetics and fashion trends - Teens with slower physical development may demonstrate significant concern - Teens with a different appearance due to injury or illness (acne) may continue to focus on body image. EMOTIONAL AND IDENTITY DEVELOPMENT The teen???s emotions fluctuate between the dependence of a child and the independence of an adult.Teens may: ?? Experience extreme changes in feelings ?? Not consider the feelings of others ?? Be unwilling to accept consequences of their behaviors - ???Rules don???t apply to me? Be able to recognize their own strengths and weaknesses ?? Begin to think about life goals. SOCIAL DEVELOPMENT Teens focus a great deal on socialization. The teen may: ?? Allow a peer group to assume a major role and have a strong influence on behavior ?? Have an extreme focus on being accepted and belonging to a group ?? Become more involved with teams and in clubs. NUTRITION A proper diet plays a very important role because of rapid growth during these years. The followingtips may help: ?? Fat intake should come from healthier foods such as cheese or yogurt ?? Try to limit junk food and fast food meals ?? Keep the household supply of junk food such as candy, cookies and potato chips to a minimum ?? Stock up on low-fat, healthy items for snacks such as fruit, raw vegetables, whole grain crackers and yogurt ?? Include raw or cooked fruits and/or vegetables, for the many important vitamins and minerals they contain. Children at this age require about 1,200-1,500 mg of calcium. If your child does not like milk, here's a few non-dairy foods rich in calcium. [place] orange juice, calcium fortified 8oz = 300mg Omid [place] with calcium 3vz=694mc Aunt Jihan's Whole Grain Waffles, frozen 2=559to Kudos Whole Grain Bar 1=596pc [place] Instant Breakfast bar 8=577hb SAFETY Everyone should wear seat belts at all times when in a vehicle. Accidents pose the greatest threat to the life and health of your teenager. More teens of injuries than all other diseases combined. Yet, most major injuries can be prevented. It is best to keep all firearms out of your home. If you must have a gun, keep it unloaded and in alocked place with a trigger lock separate from the ammunition. Your child faces a greater likelihood of being shot by himself, a friend or a family member than by an intruder. Talk to your child about guns in school and on your streets. Find out if your child???s friends carry guns. SPORTS SAFETY Often teens play in one or more sports during these years. Be sure your child uses the proper protective equipment for the sport. Encourage your teen to wear a helmet while riding a bicycle or while rollerblading. Participating in these activities at dusk or after dark is very dangerous. SEX, DRUGS, ALCOHOL, SMOKING Discussions about sex, drugs, alcohol and smoking with your child are extremely important. Your teen may experience pressure from friends to engage in these activities. When discussing them, try to understand your child???s feelings and viewpoints. Provide him or her with access to accurate and appropriate information. INDEPENDENCE - DEPENDENCE STRUGGLE ?? Some teens may reject parental and family value systems in favor of those held by their peer group ?? Conflicts usually center on curfews, chores and expected role in family. ADVICE FOR PARENTS ?? Establish fair, understandable rules about chores, watching television, outside activities, homework and bedtime ?? Communicate with your teen ?? Show interest in your teen???s daily activities ?? Show affection ?? Understand the importance of serving as a parental role model ?? Encourage age-appropriate independence and self-responsibility ?? Know your teen???s whereabouts at all times. Dosage Chart Acetaminophen (Children's Tylenol??) Weight Infant's Suspension 160 mg per teaspoon (5mL) Children's Suspension 160 mg per teaspoon (5mL) Chewable Tablets (80 mg tablets) Jeremy Strength (160 mg tablets / capsules) 6 - 11 lbs. 1.25 mL 12 - 17 lbs. 2.5 mL ?? teaspoon (2.5 mL) 18 - 23 lbs. 3.75 mL ?? teaspoon (3.75 mL) 24 - 35 lbs. 5 mL 1 teaspoon (5 mL) 2 tablets 1 tablet 36 - 47 lbs. 1 ?? teaspoons 3 tablets 1 ?? tablets 48 - 59 lbs. 2 teaspoons 4 tablets 2 tablets 60 - 71 lbs. 2 ?? teaspoons 5 tablets 2 ?? tablets 72 - 95 lbs. 3 teaspoons 6 tablets 3 tablets Over 95 lbs. 4 teaspoons 8 tablets 4 tablets 96 lbs. and over - May use 2 regular strength (325 mg) adult tablets / capsules. Dosage Chart Children's Ibuprofen (Motrin/Advil) (Do NOT use below the age of 6 Months) AGE WEIGHT Pediatric Drops 50mg per 1.25mL Children???s Suspension 100mg per teaspoon (5mL) Chewable tablets LOW FEVER (Less than 102??F ) HIGH FEVER (More than 102??F ) LOW FEVER (Less than 102??F) HIGH FEVER (More than 102??F) 50 mg 100 mg 6 - 11 months 13 - 17 lbs. 0.625 mL 1.25 mL ?? tsp ?? tsp 12 -23 months 18 - 23 lbs. 1.25 mL 2.5 mL ?? tsp 1 tsp 2 1 2 - 3 years 24 - 35 lbs. 2.5 mL ?? tsp 1 ?? tsp 3 1.5 4 - 5 years 36 - 47 lbs. 1 tsp 2 tsp 4 2 6 - 8 years 48 - 59 lbs. 1 ?? tsp 2 ?? tsp 5 2.5 9 - 10 years 60 - 74 lbs. 1 ?? tsp 3 tsp 6 3 11 - 12 years 75 - 95 lbs. 2 tsp 4 tsp 7 3.5 Over 12 years Over 95 lbs. 2 ?? tsp 4 ?? tsp 8 4 One dose may be given every 6 to 8 hours as needed. Do not exceed 4 doses per 24 hours. Over 95 lbs. - May use 1 or 2 regular ibuprofen tablets. Do not use aspirin in children during viral illnesses because of association with Sheryl's syndrome. documented in this encounter Plan of Treatment Not on file documented as of this encounter Visit Diagnoses Diagnosis Well child check- Primary Routine or child health check Obesity Obesity, unspecified documented in this encounter Care Teams Cdl Dedicated Truck Driver Relationship Specialty Start Date End Date Bailey Hastings MD PCP - General 10/29/08 12/09/15 documented as of this encounter
--- OUTSIDE RECORDS SUMMARY | 2024-08-27 07:01 | XMS_ITS | Encounter Summary ---
Author Organization [facility] Address [address] [place] [address] Care Team Providers Care Internal Control Specialist Name Role Phone Bailey Hastings MD Primary Care Provider Reason for Visit * Reason Onset Date Comments Information 07/01/2013 Encounter Details Date Type Department Care Team (Late st Contact Info) Description 07/01/2013 Telephone [facility] Pediatrics [place] [id number] [place] [address] [address] [place] [address] Bailey Hastings MD [address] [facility] [address] [place] [phone] Information Social History Tobacco Use Types Packs/Day Years Used Date Smoking Tobacco: Never Assessed Alcohol Use Standard Drinks/Week Comments No 0 (1 standard drink = 0.6 oz pur e alcohol) Sex and Gender Information Value Date Recorded Sex Assigned at Not on file Gender Identity Not on file Sexual Orientation Not on file documented as of this encounter Miscellaneous Notes * Telephone Encounter - Komal Lara - 07/01/2013 10:21 AM CDT Pt was admitted for ankle fracture, she will be going home today. documented in this encounter Plan of Treatment Not on file documented as of this encounter Visit Diagnoses Not on filedocumented in this encounter Care Teams Internal Control Specialist Relationship Specialty Start Date End Date Bailey Hastings MD PCP - General 10/29/08 3 documented as of this encounter
--- OUTSIDE RECORDS SUMMARY | 2024-08-27 07:01 | XMS_ITS | Encounter Summary ---
Author Organization [facility] Address [address] [place]: Epic Prelude ADT [place] [address] Care Team Providers Care Pin Worker Name Role Phone Magda Gregorio DO Primary Care Provider [phone] Encounter Details Date Type Department Care Team (Latest Contact Info) Description 10/14/2022 Travel Social History Tobacco Use Types Packs/Day Years Used Date Smoking Tobacco: Never Smokeless Tobacco: Never Alcohol Use Standard Drinks/Week Comments No 0 (1 standard drink = 0.6 oz pur e alcohol) Sex and Gender Information Value Date Recorded Sex Assigned at Not on file Gender Identity Not on file Sexual Orientation Not on file COVID-19 Exposure Response Date Recorded In the last 10 days, have yo u been in contact with someone who was confirmed or suspected to have Coronavirus/COVID-19? No / Unsure 10/14/2022 10:25 AM INSULATION BOARD BACK TENDER documented as of this encounter Plan of Treatment Not on file documented as of this encounter Visit Diagnoses Not on filedocumented in this encounter Care Teams Pin Worker Relationship Specialty [place] [address] [facility] [address] [place] [address] PCP - General Internal Medicine 10/14/22 documented as of this encounter
--- OUTSIDE RECORDS SUMMARY | 2024-08-27 07:01 | XMS_ITS | Encounter Summary ---
Author Organization [facility] Address [address] [place] [address] Care Team Providers Care Sales Special Agent Name Role Phone Bailey Hastings MD Primary Care Provider Reason for Visit * Reason Onset Date Comments Erroneous encounter-disregard 10/10/2011 Encounter Details Date Type Department Care Team (Late st Contact Info) Description 10/10/2011 Telephone [facility] Pediatrics [place] [address] [place] [address] [address] [place] [address] Bailey Hastings MD [address] [facility] [address] [place] [address] Erroneous encounter-disregard Social History Tobacco Use Types Packs/Day Years [...] on filedocumented in this encounter Care Teams Sales Special Agent Relationship Specialty Start Date End Date Bailey Hastings MD PCP - General 10/29/08 12/09/15 documented as of this encounter
--- OUTSIDE RECORDS SUMMARY | 2024-08-27 07:01 | XMS_ITS | Encounter Summary ---
Author Organization [facility] Address [address] [place] [address] Care Team Providers Care Aviation Electrician Name Role Phone Bailey Hastings MD Primary Care Provider Encounter Details Date Type Department Care Team (Late st Contact Info) Description 11/05/2013 Abstract [facility] [place] [address] [place] [address] [address] [place] [phone] Bailey Hastings MD [address] [facility] [address] [place] [address] Social History Tobacco Use Types Packs/Day Years [...] on filedocumented in this encounter Care Teams Aviation Electrician Relationship Specialty Start Date End Date Bailey Hastings MD PCP - General 10/29/08 12/09/15 documented as of this encounter
--- OUTSIDE RECORDS SUMMARY | 2024-08-27 07:01 | XMS_ITS | Encounter Summary ---
Author Organization [facility] Address [address] [place] [address] Care Team Providers Care Belly Roller Name Role Phone Bailey Hastings MD Primary Care Provider Reason for Visit * Reason Comments Vomiting Stomach pain and Vom ited 3 to 4x yesterday and twice today. No fever. MEDS: none Encounter Details Date Type Department Care Team (Late st Contact Info) Description 10/10/2011 10:15 AM AGRONOMY TECHNICIAN Office Visit [facility] Pediatrics [address] [place] [address] Bailey Hastings MD [address] [facility] [address] [place] [address] Gastroenteritis (Primary Dx) Social History Tobacco Use Types Packs/Day Years [...] Sign Reading Time Taken Comments Blood Pressure 110/60 10/10/2011 10:16 AM AGRONOMY TECHNICIAN Pulse - - Temperature 36.7 ??C (98 ??F) 10/10/2011 10:16 AM AGRONOMY TECHNICIAN Respiratory Rate - - Oxygen Saturation - - Inhaled Oxygen Concentration - - Weight 68.9 kg (152 lb) 10/10/2011 10:16 AM AGRONOMY TECHNICIAN Height 153.7 cm (5' 0.5 ) 10/10/2011 10:16 AM CS T Body Mass Index 29.2 10/10/2011 10:16 AM AGRONOMY TECHNICIAN Body Mass Index Percentile 97.76% 10/10/2011 10: 16 AM AGRONOMY TECHNICIAN Growth Chart: CDC (Girls, 2- 20 Years) documented in this encounter Progress Notes * Bailey Hastings MD - 10/10/2011 10:41 AM CST SUBJECTIVE: Laura Finley is a 11 y.o. female brought by mother with complaints of abdominal pain, vomiting for 2 days. Parent's observations of the patient at home are normal activity, mood and playfulness, normal appetite and normal fluid intake. Pertinent negatives: no observed bloody diarrhea, bloody stools, fever OBJECTIVE: Physical exam reveals the patient appears well. Hydration status: well hydrated. Abdomen: abdomen is soft without significant tenderness, masses, organomegaly or guarding. ASSESSMENT: Viral Gastroenteritis PLAN: I have recommended small amounts clear fluids frequently, soups, juices, water and advance diet as tolerated. Return office visit if symptoms persist or worsen; I have alerted the parents to observe carefully for complications and to call if high fever, increased dehydration, reduced urine output, marked lethargy, abdominal pain, blood in stool or vomit. NOMY TECHNICIAN documented in this encounter Plan of Treatment Not on file documented as of this encounter Visit Diagnoses Diagnosis Gastroenteritis- Primary Other and unspecified noninfectious gastroenteritis and colitis documented in this encounter Care Teams Belly Roller Relationship Specialty Start Date End Date Bailey Hastings MD PCP - General 10/29/08 12/09/15 documented as of this encounter
--- OUTSIDE RECORDS SUMMARY | 2024-08-27 07:01 | XMS_ITS | Encounter Summary ---
Author Organization [facility] Address [address] [place] [address] Care Team Providers Care Special Education Instructor Name Role Phone Bailey Hastings MD Primary Care Provider Encounter Details Date Type Department Care Team (Late st Contact Info) Description 07/16/2013 Abstract [facility]s [place] [id number] [place] [address] [address] [place] [phone] Bailey Hastings MD [address] [facility] [address] [place] [address] Social History Tobacco Use Types [...] on filedocumented in this encounter Care Teams Special Education Instructor Relationship Specialty Start Date End Date Bailey Hastings MD PCP - General 10/29/08 3 documented as of this encounter
--- OUTSIDE RECORDS SUMMARY | 2024-08-27 07:01 | XMS_ITS | Encounter Summary ---
Author Organization [facility] Address [address] [place] [address] Care Team Providers Care Roller Skates Assembler Name Role Phone Bailey Hastings MD Primary Care Provider Encounter Details Date Type Department Care Team (Late st Contact Info) Description 08/10/2013 Abstract [facility] Pediatrics [place] [address] [place] [address] [address] [place] [phone] Bailey Hastings MD [address] [facility] [address] [place] [address] Social History Tobacco Use Types [...] Associated Diagnosis Comments XR ANKLE 3+ VW RIGHT Routine 08/07/2013 documented in this encounter Results * XR ANKLE 3+ VW RIGHT (08/07/2013) Anatomical Region Laterality Modality Ankle / Foot Other German Charles MD DIAGNOSTIC IMAGING O RDERABLES documented in this encounter Visit Diagnoses Not on filedocumented in this encounter Care Teams Roller Skates Assembler Relationship Specialty Start Date End Date Bailey Hastings MD PCP - General 10/29/08 3 documented as of this encounter
--- OUTSIDE RECORDS SUMMARY | 2024-08-27 07:01 | XMS_ITS | Encounter Summary ---
Author Organization [facility] Address [address] [place] [address] Care Team Providers Care Installer Name Role Phone Bailey Hastings MD Primary Care Provider Encounter Details Date Type Department Care Team (Late st Contact Info) Description 11/05/2013 Abstract [facility] Pediatrics [place] [address] [place] [address] [address] [place] [phone] Bailey Hastings MD [address] [facility] [address] [place] [address] Social History Tobacco Use Types [...] on filedocumented in this encounter Care Teams Installer Relationship Specialty Start Date End Date Bailey Hastings MD PCP - General 10/29/08 12/09/15 documented as of this encounter
--- OUTSIDE RECORDS SUMMARY | 2024-08-27 07:01 | XMS_ITS | Encounter Summary ---
Author Organization [facility] Address [address] [place] [address] Care Team Providers Care Chest Pain Coordinator Name Role Phone Magda Gregorio DO Primary Care Provider [phone] Reason for Visit * Reason Comments Establish Care rib sawyer Encounter Details Date Type Department Care Team (Late st Contact Info) Description 10/14/2022 11:00 AM DIRECTOR PHYSICAL Office Visit [facility] Primary Care - [place] [address] [address] [place]da [place] [id number] [place] [address] Encounter for routine adult health examination without abnormal findings (Primary Dx) Social History Tobacco Use Types [...] Coronavirus/COVID-19? No / Unsure 10/14/2022 10:25 AM DIRECTOR PHYSICAL documented as of this encounter Last Filed Vital Signs Vital Sign Reading Time Taken Comments Blood Pressure 118/74 10/14/2022 10:43 AM DIRECTOR PHYSICAL Pulse 75 10/14/2022 10:43 AM DIRECTOR PHYSICAL Temperature 36.9 ??C (98.4 ??F) 10/14/2022 10:[address] Respiratory Rate - - Oxygen Saturation 99% 10/14/2022 10:43 AM DIRECTOR PHYSICAL Inhaled Oxygen Concentration - - Weight 125.2 kg (276 lb) 10/14/2022 10:43 AM DIRECTOR PHYSICAL Height 167.6 cm (5' 6 ) 10/14/2022 10:43 AM DIRECTOR PHYSICAL Body Mass Index 44.55 10/14/2022 10:43 AM DIRECTOR PHYSICAL documented in this encounter Progress Notes * JgMagda DO - 10/14/2022 11:00 AM CST Internal Medicine Outpatient History & Physical HPI: Laura Finley is a 22 y.o. female who presents to [facility]. What do you like to be called? Michelle Who do you live with? 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 Was down to 250, was on keto but going through break up. States all women in her family are big so she will never ASTHMA- childhood. Hasn't used inhaler in over 10 years GEORGE/DEPR- been on effexor for 5 years. Abilify made her exhausted. No dx besides anx/depr. Celexa- on for 7 years and just stopped working. +self harm and suicide, remote. No current SI. She has the same xanax rx for 6 months. More depr than anxiety. Does therapy monthly, working well. SVT- on BB following cards, working well. Per pt- she occ gets heart scans and CXR to make sure there is no blood clot; brea of a blood clot and she has the same SVT that she does. 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 Vaccinations: -pneumonia 22: n/a -HPV: ages [age]: had all 3 per pt -tdap: due -flu : Discussed STD risk/prevention/screening: no recent pap Screened for abuse: negative Past Medical History: Past Medical History: Diagnosis Date Allergy season allergies Asthma Bowel disease GI problem abd pain RL side Surgical History: Past Surgical History: Procedure Laterality Date PT DENIES RELEVANT SURGICAL HISTORY Family History: Family History Problem Relation Name Age of Onset Healthy Father Healthy Mother Healthy Sister Diabetes Maternal Grandmother Other Maternal Grandmother of PE Other Maternal Grandfather of PE Diabetes Maternal Aunt Colon Cancer Neg Hx Breast Cancer Neg Hx Social History: Social History Tobacco Use Smoking status: Never Smokeless tobacco: Never Substance Use Topics Alcohol use: No ] Medications: Current Outpatient Medications on File Prior to Visit Medication Sig Dispense Refill metoprolol succinate (TOPROL XL) 50 mg Extended Release 24 hour tablet Take 1 Tablet by mouth daily. ALPRAZolam (XANAX) 0.25 mg tablet Take 0.25 mg by mouth 1 time daily as needed. lansoprazole (PREVACID SOLUTAB) 30 mg Oral TbLD Take 1 Tab by mouth daily before breakfast. 30 Tab 1 [DISCONTINUED] ARIPiprazole (ABILIFY) 5 mg tablet Take 5 mg by mouth daily. [DISCONTINUED] venlafaxine (EFFEXOR XR) 75 mg Extended Release 24 hour capsule Take 1 Capsule by mouth daily. [DISCONTINUED] albuterol 90 mcg/Actuation Inhalation HFAA inhaler Take 2 Puffs by inhalation every 6 hours as needed for Other (See Comment) (cough). (Patient not taking: Reported on 10/14/2022) 17 Gram 0 No current facility-administered medications on file prior to visit. Allergies: Allergies Allergen Reactions Apple Juice Nausea and Vomiting Objective: BP 118/74 (BP Location: Left arm, Patient Position (BP): Sitting, BP Cuff Size: Adult) Pulse 75 Temp 98.4 ??F (36.9 ??C) (Temporal) Ht 5' 6 (1.676 m) Wt 125.2 kg (276 lb) SpO2 99% BMI 44.55 kg/m?? General appearance alert, cooperative, no distress, appears stated age Head Normocephalic, without obvious abnormality, atraumatic Ears Normal external exam. Hearing grossly intact. TMs clear bilaterally. Neck symmetrical Lungs Clear to auscultation bilaterally, no wheezes or rales Heart Regular rate and rhythm, S1, S2 normal, no murmur, click, rub or gallop Abdomen Soft, non-tender. No masses, No organomegaly Extremities Extremities normal, atraumatic, no cyanosis or edema Skin Skin color, texture, turgor normal. No rashes or lesions Neurologic CN II-XII grossly normal, moves all extremities symmetrically No ble edema Assessment and Plan: Laura was seen today for establish care. Diagnoses and all orders for this visit: Encounter for routine adult health examination without abnormal findings Other orders - sertraline (Zoloft) 25 mg tablet; Take 1 Tablet (25 mg) by mouth daily. After 2 weeks may increase to 2 tablets (50mg) by mouth daily. Sister and father are bipolar. She knows what to look for, no problem with prior 3 ssris. I've explained to her that drugs of the SSRI class can have side effects such as sexual dysfunction, GI symptoms, headache, nausea and rarely suicidal thoughts. These medications are generally effective at alleviating symptoms of anxiety and/or depression. Let me know if significant side effects dooccur. Return to clinic 1 mo video f/u for sertraline Magda Gregorio DO CTOR PHYSICAL documented in this encounter Miscellaneous Notes * Patient Instructions - Magda Gregorio DO - 10/14/2022 11:58 AM CST COVID BOOSTERS You can receive the Bivalent booster at the sites listed below. [facility], [facility] vaccine clinic (at [place]), [facility], [facility]. Urgent Appointments are often available- ask to speak to the [facility] office to schedule or send a [employer] Message WEB SITES FOR RELIABLE MEDICAL INFORMATION -[facility]: [email or web address] -[facility]: [email or web address] AFTER HOURS AND WEEKENDS - [facility] now has a 24-hour medical team of nurses and doctors to help you outside of typical office hours. Call the office number or [phone], and you will be transferred directly to a member of our after hours care team who can discuss any symptom or new concern that develops when our office is closed. Get the tdap vaccine (AKA tetanus shot) at the [facility] or at any pharmacy. Call your insurance to see where it is cheapest. In a crisis or just need to talk? National Suicide Prevention Lifeline: Suicide and Crisis Lifeline: call or text 143 to connect with a counselor Behavioral Health Response: call them if feeling depressed, dealing with a crisis, need to talk to someone to or thoughts of suicide [phone] [facility] also has counselors on staff to help as well. Just need to talk? Text HOME to 948105 to connect with a Crisis Counselor. BLOOD DONATIONS ARE ALWAYS NEEDED! Call [facility] at [phone] or go to the [employer] web site [employer] CTOR PHYSICAL documented in this encounter Plan of Treatment Not on file documented as of this encounter Visit Diagnoses Diagnosis Encounter for routine adult health examination without abnormal findings- Primary documented in this encounter Care Teams Chest Pain Coordinator Relationship Specialty [place] [address] [address] PCP - General Internal Medicine 10/14/22 documented as of this encounter
--- OUTSIDE RECORDS SUMMARY | 2024-08-27 07:01 | XMS_ITS | Encounter Summary ---
Author Organization [facility] Address [address] [place] [address] Care Team Providers Care Licensed Clinician Name Role Phone Bailey Hastings MD Primary Care Provider Encounter Details Date Type Department Care Team (Late st Contact Info) Description 07/09/2013 Abstract [facility] [place] [id number] [place] [address] [address] [place] [phone] Bailey Hastings MD [address] [facility] [address] [place] [address] Social History Tobacco Use Types [...] on filedocumented in this encounter Care Teams Licensed Clinician Relationship Specialty Start Date End Date Bailey Hastings MD PCP - General 10/29/08 12/09/15 documented as of this encounter
--- OUTSIDE RECORDS SUMMARY | 2024-08-27 07:01 | XMS_ITS | Encounter Summary ---
Author Organization [facility] Address [address] [place] [address] Care Team Providers Care Manager Java Name Role Phone Bailey Hastings MD Primary Care Provider [phone] Encounter Details Date Type Department Care Team (Late st Contact Info) Description 07/17/2013 Abstract [facility] [place] [address] [place] [address] [address] [place] [phone] Bailey Hastings MD [address] [facility] [address] [place] [address] Social History Tobacco Use Types [...] on filedocumented in this encounter Care Teams Manager Java Relationship Specialty Start Date End Date Bailey Hastings MD PCP - General 10/29/08 3 documented as of this encounter
--- OUTSIDE RECORDS SUMMARY | 2024-08-27 07:01 | XMS_ITS | Encounter Summary ---
Author Organization [facility] Address [address] [place] [address] Care Team Providers Care Wet Room Worker Name Role Phone Magda Gregorio DO Primary Care Provider [phone] Encounter Details Date Type Department Care Team (Late st Contact Info) Description 03/12/2024 External Device Data STL ABSTRACTION Provider, Abstract NO ADDRESS ON FILE Social History Tobacco Use Types Packs/Day Years [...] on filedocumented in this encounter Care Teams Wet Room Worker Relationship Specialty [place] [address] [facility] [address] [place] [address] PCP - General Internal Medicine 10/14/22 documented as of this encounter
--- OUTSIDE RECORDS SUMMARY | 2024-08-27 07:01 | XMS_ITS | Encounter Summary ---
Author Organization [facility] Address [address] [place] [address] Care Team Providers Care Actuarial Clerk Name Role Phone Bailey Hastings MD Primary Care Provider [phone] Reason for Visit * Reason Comments Sore Throat cough, x2-3 days, no known fever, no meds given Encounter Details Date Type Department Care Team (Late st Contact Info) Description 10/30/2012 10:30 AM CERTIFIED OPHTHALMIC TECHNOLOGIST Office Visit [facility] [place] [id number] [place] [address] [address] [place] [phone] Bailey Hastings MD [address] [facility] [address] [place] [address] Sore throat (Primary Dx); Cough Social History Tobacco Use Types Packs/Day Years [...] Sign Reading Time Taken Comments Blood Pressure 120/64 10/30/2012 10:08 AM CERTIFIED OPHTHALMIC TECHNOLOGIST Pulse - - Temperature 37 ??C (98.6 ??F) 10/30/2012 10:08 AM CERTIFIED OPHTHALMIC TECHNOLOGIST Respiratory Rate - - Oxygen Saturation - - Inhaled Oxygen Concentration - - Weight 79.8 kg (176 lb) 10/30/2012 10:08 AM CERTIFIED OPHTHALMIC TECHNOLOGIST Height 158.8 cm (5' 2.5 ) 10/30/2012 10:08 AM CS T Body Mass Index 31.68 10/30/2012 10:08 AM CERTIFIED OPHTHALMIC TECHNOLOGIST Body Mass Index Percentile 98.31% 10/30/2012 10: 08 AM CERTIFIED OPHTHALMIC TECHNOLOGIST Growth Chart: CDC (Girls, 2- 20 Years) documented in this encounter Progress Notes * Bailey Hastings MD - 10/30/2012 11:36 AM CST sore throat, low grade fever, + cough. . Symptoms for about 2 days BP 120/64 Temp(Src) 98.6 ??F (37 ??C) (Tympanic) Ht 62.5 (158.8 cm) Wt 79.833 kg (176 lb) BMI 31.68 kg/m2 Alert, No acute distress, non-toxic appearing Ears-clear tm's bilaterally Throat-clear, no tonsillar swelling, exudate Nose-no rhinorhea Chest-clear to auscultation bilaterally Heart-regular rate and rhythm , no murmur Skin- no rash 1. Sore throat (462) POC RAPID STREP A 2. Cough (786.2) promethazine-codeine (PHENERGAN WITH CODEINE) 6.25-10 mg/5 mL Oral solution If symptoms more than 7 days would consider ordering abx IFIED OPHTHALMIC TECHNOLOGIST * Merlyn Goff - 10/30/2012 10:25 AM CST Results for orders placed in visit on 10/30/12 POC RAPID STREP A Component Value Range RAPID STREP Negative Negative IFIED OPHTHALMIC TECHNOLOGIST documented in this encounter Plan of Treatment Not on file documented as of this encounter Procedures Procedure Name Priority Date/Time Associated Diagnosis Comments POC RAPID STREP A ANTIGEN Routine 10/30/2012 10:25 AM CERTIFIED OPHTHALMIC TECHNOLOGIST Sore throat documented in this encounter Results * POC RAPID STREP A (10/30/2012 10:25 AM CERTIFIED OPHTHALMIC TECHNOLOGIST) RAPID STREP Negative Negative [facility] Specimen from throat (specimen) Bailey Hastings MD POINT OF CARE TESTI [facility] documented in this encounter Visit Diagnoses Diagnosis Sore throat- Primary Acute pharyngitis Cough documented in this encounter Care Teams Actuarial Clerk Relationship Specialty Start Date End Date Bialey Hastings MD PCP - General 10/29/08 12/09/15 documented as of this encounter
--- OUTSIDE RECORDS SUMMARY | 2024-08-27 07:01 | XMS_ITS | Encounter Summary ---
Author Organization [facility] Address [address] [place] [address] Care Team Providers Care Heat Treat Furnace Operator Name Role Phone Bailey Hastings MD Primary Care Provider Encounter Details Date Type Department Care Team (Late st Contact Info) Description 12/20/2011 Abstract [facility] [place] [phone] [place] [address] [address] [place] [phone] Bailey Hastings MD [address] [facility] [address] [place] [address] Social History Tobacco Use Types [...] on filedocumented in this encounter Care Teams Heat Treat Furnace Operator Relationship Specialty Start Date End Date Bailey Hastings MD PCP - General 10/29/08 3 documented as of this encounter
--- OUTSIDE RECORDS SUMMARY | 2024-08-27 07:01 | XMS_ITS | Encounter Summary ---
Author Organization [facility] Address [address] [place] [address] Care Team Providers Care Body And Fender Worker Name Role Phone Magda Gregorio DO Primary Care Provider [phone] Encounter Details Date Type Department Care Team (Late st Contact Info) Description 10/27/2023 External Device Data STL ABSTRACTION Provider, Abstract [...] on filedocumented in this encounter Care Teams Body And Fender Worker Relationship Specialty [place] [address] [facility] [address] [place] [address] PCP - General Internal Medicine 10/14/22 documented as of this encounter
--- OUTSIDE RECORDS SUMMARY | 2024-08-27 07:01 | XMS_ITS | Encounter Summary ---
Author Organization [facility] Address [address] [place] [address] Care Team Providers Care Finish Rolls Operator Name Role Phone Bailey Hastings MD Primary Care Provider Reason for Visit * Reason Onset Date Comments Cough 11/22/2011 Encounter Details Date Type Department Care Team (Late st Contact Info) Description 11/22/2011 Telephone [facility] [place] [id number] [place] [address] [address] [place] [address] Bailey Hastings MD [address] [facility] [address] [place] [address] Cough Social History Tobacco Use Types Packs/Day [...] encounter Miscellaneous Notes * Telephone Encounter - Kiah Bonilla - 11/22/2011 11:10 AM CDT Informed mom of recommendation to try the Delsym 2tsp every 12 hours and if not improvement or feels she may need a steroid for her asthma we would need to see daniel in the office for an appointment. Mom understands and agrees. * Telephone Encounter - Bailey Hastings MD - 11/22/2011 10:05 AM CDT She can try delsym 2 tsp every 12 hours. If she needs anything stronger or mom thinks she needs a steroid for the asthma she will need an appointment * Telephone Encounter - Kiah Bonilla - 11/22/2011 9:36 AM CDT Mom calls because daniel started coughing 2 days ago, alot of clear nasal drainage, she is takingher Singulair and using her Albuterol MDI as directed, but will cough so much she vomits, no fever is present and she is alert and otherwise well. Mom questions what she can give her OTC and not bring her into the office. MA unsure of recommendation as she does use preventative asthma medication already. documented in this encounter Plan of Treatment Not on file documented as of this encounter Visit Diagnoses Not on filedocumented in this encounter Care Teams Finish Rolls Operator Relationship Specialty Start Date End Date Bailey Hastings MD PCP - General 10/29/08 12/09/15 documented as of this encounter
--- OUTSIDE RECORDS SUMMARY | 2024-08-27 07:01 | XMS_ITS | Encounter Summary ---
Author Organization [employer] Care Team Providers Care Test Equipment Mechanic Name Role Phone Albert Ruby MD Primary Care Provider [phone] Encounter Details Date Type Department Care Team [...] on filedocumented in this encounter Care Teams Test Equipment Mechanic Relationship Specialty Start Date End Date Albert Ruby MD [address] [address] PCP - General Family Medicine 12/26/23 documented as of this encounter
--- OUTSIDE RECORDS SUMMARY | 2024-08-27 07:01 | XMS_ITS | Encounter Summary ---
Author Organization [facility] Address [address] [place] [address] Care Team Providers Care Baggagemaster Name Role Phone Bailey Hastings MD Primary Care Provider Reason for Visit * Reason Comments Sore Throat ST beginning this am . Low grade fever beginning last PM. Stomach pain and congestion beginning 06/08. Vomited 2x on 06/08. MEDS: none Encounter Details Date Type Department Care Team (Late st Contact Info) Description 06/11/2012 2:15 PM CDT Office Visit [facility] [place] [phone] Maddy Gandhi, ALFA [phone] [place], [place] [phone] Pharyngitis (Primary Dx); Cough Social History Tobacco Use [...] Sign Reading Time Taken Comments Blood Pressure 110/62 06/11/2012 2:06 PM CDT Pulse - - Temperature 36.8 ??C (98.3 ??F) 06/11/2012 2:06 PM CD T Respiratory Rate - - Oxygen Saturation - - Inhaled Oxygen Concentration - - Weight 77.1 kg (170 lb) 06/11/2012 2:06 PM CDT Height 154.9 cm (5' 1 ) 06/11/2012 2:06 PM CDT Body Mass Index 32.12 06/11/2012 2:06 PM CDT Body Mass Index Percentile 98.72% 06/11/2012 2:0 6 PM CDT Growth Chart: [facility] (Girls, 2- 20 Years) documented in this encounter Progress Notes * Zoraida Ashford - 06/11/2012 2:23 PM CDT Results for orders placed in visit on 06/11/12 POC RAPID STREP A Component Value Range RAPID STREP Negative NEG * Maddy Gandhi NP - 06/11/2012 2:07 PM CDT Chief Complaint Patient presents with ??? Sore Throat ST beginning this am. Low grade fever beginning last PM. Stomach pain and congestion beginning 06/08. Vomited 2x on 06/08. MEDS: none Laura Finley is an 11 y.o. female who presents with sore throat today. Fever x 2 days. Stuffy and runny nose. Low grade fever x 2 days. History was provided by the father, parent. BP 110/62 Temp(Src) 98.3 ??F (36.8 ??C) (Tympanic) Ht 61 (154.9 cm) Wt 77.111 kg (170 lb) BMI 32.12 kg/m2 Alert, No acute distress, non-toxic appearing Ears- Clear tm's bilaterally Throat- sl erythematous without tonsillar swelling or exudate Nose- congested with clear rhinorrhea Chest- clear to auscultation bilaterally Heart- regular rate and rhythm , no murmur Abdomen- soft, non-tender and non-distended Skin- no rash Assessment 1. Pharyngitis (462) POC RAPID STREP A, STREPTOCOCCUS GROUP A CULTURE 2. Cough (786.2) albuterol (PROVENTIL,VENTOLIN) 90 mcg/Actuation Inhalation HFAA Plan: RST - neg Culture pending Needed refill for Albuterol Inhaler Symptomatic treatment: Motrin and Tylenol as needed for pain or fever. Call or return to clinic prn if these symptoms worsen or fail to improve. documented in this encounter Plan of Treatment Not on file documented as of this encounter Procedures Procedure Name Priority Date/Time Associated Diagnosis Comments POC RAPID STREP A ANTIGEN Routine 06/11/2012 Pharyngitis documented in this encounter Results * STREPTOCOCCUS GROUP A CULTURE (06/11/2012 5:36 PM CDT) FINAL MICRO REPORT No Group A, C, or G beta Streptococcus isolated. [facility] Specimen of unknown material (specimen) SPECIMEN FROM THROAT / Unknown 06/11/2012 5:36 PM CDT 06/11/2012 5:59 PM CDT Comment:THROAT Maddy Gandhi RESEARCH ASSOCIATE QUALITY CONTROL QC MICROBIOLOGY - GENERAL ORDERABLES [facility] CLIA# [id number] [address] [place] [address] * POC RAPID STREP A (06/11/2012) RAPID STREP Negative NEG [facility] OFFICE [facility] Specimen from throat (specimen) Maddy Gandhi RESEARCH ASSOCIATE QUALITY CONTROL QC POINT OF CARE TESTING [facility] OFF[facility] documented in this encounter Visit Diagnoses Diagnosis Pharyngitis- Primary Acute pharyngitis Cough documented in this encounter Care Teams Baggagemaster Relationship Specialty Start Date End Date Bailey Hastings MD PCP - General 10/29/08 3 documented as of this encounter
--- OUTSIDE RECORDS SUMMARY | 2024-08-27 07:01 | XMS_ITS | Encounter Summary ---
Author Organization [facility] Address [address] [place] [address] Care Team Providers Care Wood Type Cutter Name Role Phone Bailey Hastings MD Primary Care Provider Encounter Details Date Type Department Care Team (Late st Contact Info) Description 02/26/2014 Abstract [facility] [place] [id number] [place] [address] [address] [place] [phone] Bailey Hastings MD [address] [facility] [address] [place] [address] Social History Tobacco Use Types [...] on filedocumented in this encounter Care Teams Wood Type Cutter Relationship Specialty Start Date End Date Bailey Hastings MD PCP - General 10/29/08 12/09/15 documented as of this encounter
--- OUTSIDE RECORDS SUMMARY | 2024-08-27 07:01 | XMS_ITS | Encounter Summary ---
Author Organization [facility] Address [address] [place] [address] Care Team Providers Care Entry Examiner Name Role Phone Magda Gregorio DO Primary Care Provider [phone] Encounter Details Date Type Department Care Team (Late st Contact Info) Description 05/07/2024 External Device Data STL ABSTRACTION Provider, Abstract [...] on filedocumented in this encounter Care Teams Entry Examiner Relationship Specialty Start [place] [address] [facility] [address] [place] [address] PCP - General Internal Medicine 10/14/22 documented as of this encounter
--- OUTSIDE RECORDS SUMMARY | 2024-08-27 07:01 | XMS_ITS | Encounter Summary ---
Author Organization [facility] Address [address] [place] [address] Care Team Providers Care Precision Farming Specialist Name Role Phone Bailey Hastings MD Primary Care Provider Encounter Details Date Type Department Care Team (Late st Contact Info) Description 08/26/2013 Orders Only [facility] Pediatrics [place] [id number] [place] [address] [address] [place] [phone] Bailey Hastings MD [address] [facility] [address] [place] [address] Social History Tobacco Use Types [...] Comments XR ANKLE 3+ VW RIGHT Routine 08/23/2013 documented in this encounter Results * XR ANKLE 3+ VW RIGHT (08/23/2013) Anatomical Region Laterality Modality Ankle / Foot Other Bailey Hastings MD DIAGNOSTIC IMAGING ORDERABLES documented in this encounter Visit Diagnoses Not on filedocumented in this encounter Care Teams Precision Farming Specialist Relationship Specialty Start Date End Date Bailey Hastings MD PCP - General 10/29/08 3 documented as of this encounter
--- OUTSIDE RECORDS SUMMARY | 2024-08-27 07:01 | XMS_ITS | Encounter Summary ---
Author Organization [facility] Address [address] [place] [address] Care Team Providers Care Parimutuel Clerk Name Role Phone Magda Gregorio DO Primary Care Provider [phone] Encounter Details Date Type Department Care Team (Late st Contact Info) Description 05/14/2024 External Device Data STL ABSTRACTION Provider, Abstract [...] on filedocumented in this encounter Care Teams Parimutuel Clerk Relationship Specialty [place] [address] [facility] [address] [place] [address] PCP - General Internal Medicine 10/14/22 documented as of this encounter
--- OUTSIDE RECORDS SUMMARY | 2024-08-27 07:01 | XMS_ITS | Encounter Summary ---
Author Organization [facility] Address [address] [place] [address] Care Team Providers Care Superintendent Oil Field Drilling Name Role Phone Bailey Hastings MD Primary Care Provider [phone] Reason for Visit * Reason Onset Date Comments Medication Refill 09/16/2011 Encounter Details Date Type Department Care Team (Late st Contact Info) Description 09/16/2011 Telephone [facility] Pediatrics [place] [address] [place] [address] 110 [place] [address] Bailey Hastings MD [address] [facility] 216 [place] [phone] Medication Refill Social History Tobacco Use Types Packs/Day Years [...] as of this encounter Visit Diagnoses Diagnosis Cough- Primary documented in this encounter Care Teams Superintendent Oil Field Drilling Relationship Specialty Start Date End Date Bailey Hastings MD PCP - General 10/29/08 12/09/15 documented as of this encounter
--- OUTSIDE RECORDS SUMMARY | 2024-08-27 07:01 | XMS_ITS | Encounter Summary ---
Author Organization [email or web address] Care Team Providers Care Manager Managing Name Role Phone Albert Ruby MD Primary Care Provider [phone] Encounter Details Date Type Department Care Team [...] filedocumented in this encounter Care Teams Manager Managing Relationship Specialty Start Date End Date Albert Ruby MD [address] [address] PCP - General Family Medicine 12/26/23 documented as of this encounter
--- OUTSIDE RECORDS SUMMARY | 2024-08-27 07:01 | XMS_ITS | Encounter Summary ---
Author Organization [facility] Care Team Providers Care First Aid Nurse Name Role Phone Albert Ruby MD Primary Care Provider [phone] Encounter Details Date Type Department Care Team [...] documented as of this encounter Care Teams First Aid Nurse Relationship Specialty Start Date End Date Albert Ruby MD [address] [address] PCP - General Family Medicine 12/26/23 documented as of this encounter
--- OUTSIDE RECORDS SUMMARY | 2024-08-27 07:01 | XMS_ITS | Encounter Summary ---
Author Organization [facility] Address [address] [place] [address] Care Team Providers Care Educational Program Director Name Role Phone Bailey Hastings MD Primary Care Provider [phone] Encounter Details Date Type Department Care Team (Late st Contact Info) Description 08/28/[address] [facility] Pediatrics [place] [address] [place] [address] 110 [place] [phone] Bailey Hastings MD [address] [facility] [address] [place] [address] Social History Tobacco Use Types [...] on filedocumented in this encounter Care Teams Educational Program Director Relationship Specialty Start Date End Date Bailey Hastings MD PCP - General 10/29/08 12/09/15 documented as of this encounter
--- OUTSIDE RECORDS SUMMARY | 2024-08-27 07:01 | XMS_ITS | Encounter Summary ---
Author Organization [facility] Address [address] [place] [address] Care Team Providers Care Photographer Name Role Phone Bailey Hastings MD Primary Care Provider Reason for Visit * Reason Onset Date Comments Medication Refill 09/07/2012 Encounter Details Date Type Department Care Team (Late st Contact Info) Description 09/07/2012 Refill [facility] Pediatrics [place] [address] [place] [address] 110 [place] [phone] Bailey Hastings MD [address] [facility] 216 [place] [address] Cough (Primary Dx) Social History Tobacco Use Types [...] Primary documented in this encounter Care Teams Photographer Relationship Specialty Start Date End Date Bailey Hastings MD PCP - General 10/29/08 3 documented as of this encounter
--- OUTSIDE RECORDS SUMMARY | 2024-08-27 07:01 | XMS_ITS | Encounter Summary ---
Author Organization [facility] Address [address] [place] [address] Care Team Providers Care Internet Marketing Director Name Role Phone Bailey Hastings MD Primary Care Provider Reason for Visit * Reason Onset Date Comments Medication Refill 01/18/2012 Encounter Details Date Type Department Care Team (Late st Contact Info) Description 01/18/2012 Telephone [facility] Pediatrics [place] [address] [place] [address] 110 [place] [address] Bailey Hastings MD [address] [facility] 216 [place] [address] Medication Refill Social History Tobacco Use Types [...] * Telephone Encounter - Kiah Bonilla - 01/18/2012 9:16 AM CDT Mom calls to request a refill on the Ibuprofen 600mg. Per fine to refill this medication today. Refill sent to Jessica in [facility]. documented in this encounter Plan of Treatment Not on file documented as of this encounter Visit Diagnoses Diagnosis Headache(784.0)- Primary Headache documented in this encounter Care Teams Internet Marketing Director Relationship Specialty Start Date End Date Bailey Hastings MD PCP - General 10/29/08 12/09/15 documented as of this encounter
--- OUTSIDE RECORDS SUMMARY | 2024-08-27 07:01 | XMS_ITS | Encounter Summary ---
Author Organization [facility] Address [address] [place] [address] Care Team Providers Care Oncology Rn Name Role Phone Magda Gregorio DO Primary Care Provider [phone] Encounter Details Date Type Department Care Team (Late st Contact Info) Description 08/25/2023 External Device Data STL ABSTRACTION Provider, Abstract [...] on filedocumented in this encounter Care Teams Oncology Rn Relationship Specialty [place] [address] [facility] [address] [place] [address] PCP - General Internal Medicine 10/14/22 documented as of this encounter
--- OUTSIDE RECORDS SUMMARY | 2024-08-27 07:01 | XMS_ITS | Encounter Summary ---
Author Organization [facility] Address [address] [place] [address] Care Team Providers Care Commercial Cleaner Name Role Phone Magda Gregorio DO Primary Care Provider [phone] Encounter Details Date Type Department Care Team (Late st Contact Info) Description 05/08/2024 External Device Data STL ABSTRACTION Provider, Abstract [...] on filedocumented in this encounter Care Teams Commercial Cleaner Relationship Specialty [place] [address] [facility] [address] [place] [address] PCP - General Internal Medicine 10/14/22 documented as of this encounter
--- OUTSIDE RECORDS SUMMARY | 2024-08-27 07:01 | XMS_ITS | Encounter Summary ---
Author Organization [facility] Address [address] [place] [address] Care Team Providers Care Solar Sales Advisor Name Role Phone Bailey Hastings MD Primary Care Provider Encounter Details Date Type Department Care Team (Late st Contact Info) Description 07/03/2013 Abstract [facility] Pediatrics [place] [address] [place] [address] 110 [place] [phone] Bailey Hastings MD [address] [facility] [address] [place] [address] Social History Tobacco Use Types [...] on filedocumented in this encounter Care Teams Solar Sales Advisor Relationship Specialty Start Date End Date Bailey Hastings MD PCP - General 10/29/08 12/09/15 documented as of this encounter
--- OUTSIDE RECORDS SUMMARY | 2024-08-27 07:01 | XMS_ITS | Encounter Summary ---
Author Organization [facility] Address [address] [place] [address] Care Team Providers Care Senior Electrical Designer Name Role Phone Bailey Hastings MD Primary Care Provider [phone] Encounter Details Date Type Department Care Team (Late st Contact Info) Description 10/23/2013 Abstract [facility] Pediatrics [place] [address] [place] [address] 110 [place] [phone] Bailey Hastings MD [address] [facility] 216 [place] [address] Social History Tobacco Use Types [...] on filedocumented in this encounter Care Teams Senior Electrical Designer Relationship Specialty Start Date End Date Bailey Hastings MD PCP - General 10/29/08 3 documented as of this encounter
--- OUTSIDE RECORDS SUMMARY | 2024-08-27 07:01 | XMS_ITS | Encounter Summary ---
Author Organization [employer] Address [address] [place] [address] Care Team Providers Care Psych Np Name Role Phone Bailey Hastings MD Primary Care Provider Encounter Details Date Type Department Care Team (Latest Contact Info) Description 06/11/2012 5:36 PM CDT - 06/11/2012 11:59 PM CDT Hospital Encounter [facility] Laboratory Support Services [facility] [address] [place] [facility] [place] [address] Maddy Gandhi, ALFA [address] [place] [place] [facility] [address] [address] Pharyngitis Discharge Disposition: Home or Self Care Social History Tobacco Use Types Packs/Day Years Used Date Smoking Tobacco: Never Assessed Alcohol Use Standard Drinks/Week Comments No 0 (1 standard drink = 0.6 oz pur e alcohol) Sex and Gender Information Value Date Recorded Sex Assigned at Not on file Gender Identity Not on file Sexual Orientation Not on file documented as of this encounter Medications at Time of Discharge Medication Sig Dispensed Refills Start Date End Date lansoprazole (PREVACID SOLUTAB) 30 mg Oral TbLDIndications:Abdomin al pain, other specified site,Nausea Take 1 Tab by mouth daily before breakfast. 30 Tab 1 01/17/2011 albuterol (PROVENTIL,VENTOLIN) 90 mcg/Actuation Inhalation HFAAIndications:Cough Take 2 Puffs by inhalation every 6 hours as needed for Other (See Comment) (cough). 17 Gram 0 06/11/2012 09/26/2012 montelukast (SINGULAIR) 10 mg Oral tabletIndications:Cough Take 1 Tab by mouth daily for 30 days. 30 Tab 4 09/16/2011 09/07/2012 documented as of this encounter Plan of Treatment Not on file documented as of this encounter Procedures Procedure Name Priority Date/Time Associated Diagnosis Comments STREPTOCOCCUS GROUP A CULTURE Routine 06/11/2012 5:36 PM CDT Pharyngitis documented in this encounter Results * STREPTOCOCCUS GROUP A CULTURE (06/11/2012 5:36 PM CDT) FINAL MICRO REPORT No Group A, C, or G beta Streptococcus isolated. [facility] Specimen of unknown material (specimen) SPECIMEN FROM THROAT / Unknown 06/11/2012 5:36 PM CDT 06/11/2012 5:59 PM CDT Comment:THROAT Maddy Gandhi FLAT LOCKER MICROBIOLOGY - GENERAL ORDERABLES [facility] CLIA# [id number] [address] [place] [address] documented in this encounter Visit Diagnoses Diagnosis Pharyngitis Acute pharyngitis documented in this encounter Care Teams Psych Np Relationship Specialty Start Date End Date Bailey Hastings MD PCP - General 10/29/08 12/09/15 documented as of this encounter
--- OUTSIDE RECORDS SUMMARY | 2024-08-27 07:01 | XMS_ITS | Encounter Summary ---
Author Organization [facility] Address [address] [place] [address] Care Team Providers Care Hat Forming Machine Operator Name Role Phone Magda Gregorio DO Primary Care Provider [phone] Encounter Details Date Type Department Care Team (Late st Contact Info) Description 10/30/2023 External Device Data STL ABSTRACTION Provider, Abstract [...] on filedocumented in this encounter Care Teams Hat Forming Machine Operator Relationship Specialty [place] [address] [facility] [address] [place] [address] PCP - General Internal Medicine 10/14/22 documented as of this encounter
--- OUTSIDE RECORDS SUMMARY | 2024-08-27 07:01 | XMS_ITS | Encounter Summary ---
Author Organization [facility] Address [address] [place] [address] Care Team Providers Care Production Administrative Assistant Name Role Phone Bailey Hastings MD Primary Care Provider Encounter Details Date Type Department Care Team (Late st Contact Info) Description 07/02/2013 Abstract [facility] Pediatrics [place] [address] [place] [address] 110 [place] [phone] Bailey Hastings MD [address] [facility] [address] [place] [address] Social History Tobacco Use Types [...] on filedocumented in this encounter Care Teams Production Administrative Assistant Relationship Specialty Start Date End Date Bailey Hastings MD PCP - General 10/29/08 12/09/15 documented as of this encounter
--- OUTSIDE RECORDS SUMMARY | 2024-08-27 07:01 | XMS_ITS | Encounter Summary ---
Author Organization [facility] Address [address] [place] [address] Care Team Providers Care Tourist Adviser Name Role Phone Bailye Hastings MD Primary Care Provider Reason for Visit * Reason Onset Date Comments Other 08/13/2013 Encounter Details Date Type Department Care Team (Late st Contact Info) Description 08/13/2013 Telephone [facility] Pediatrics [place] [address] [place] [address] 110 [place] [address] Bailey Hastings MD [address] [facility] 216 [place] [address] Other Social History Tobacco Use Types Packs/Day [...] encounter Miscellaneous Notes * Telephone Encounter - Joana Iniguez Sophie - 08/13/2013 10:03 AM CST Dad called to say he could not make the 10:30 appointment time he had scheduled. I offered 11:00 this morning he is not sure when his 's doctors office opened he stated. I told him I didn't understand because the reason he couldn't make the 10:30 was because of traffic. He kept repeating it depended upon what time his 's doctors office opened up. We then got disconnected. I called him back after talking to Dr. Hastings and explained that he did need to come at 10:30 since it was 9:55 when he called to say he was stuck in traffic but also waiting for his 's Yvonne's office to open upor 11:00 this morning or afternoon was very busy if not he should go to the urgent care or reschedule for tomorrow. His reply was you called to tell me this and I yes said yes sir. I said if you feelyour children need to be seen to today you need to take them to a urgent care for treatment if not Dr. Hastings can see them in the morning for you. The patient hung up the phone. AGE PORTER documented in this encounter Plan of Treatment Not on file documented as of this encounter Visit Diagnoses Not on filedocumented in this encounter Care Teams Tourist Adviser Relationship Specialty Start Date End Date Bailey Hastnigs MD PCP - General 10/29/08 12/09/15 documented as of this encounter
--- OUTSIDE RECORDS SUMMARY | 2024-08-27 07:01 | XMS_ITS | Clinical Summary ---
Author Organization [facility] Address [address] [address] Phone Care Team Providers Care Aquatics Coordinator Name Role Phone Albert Ruby MD Primary Care Provider [phone] Allergies Active Allergy Reactions Criticality Noted Date [...] [facility] [address] [place] [address] Aura Torre APRN, FELICITAS Viral [...] 06/06/2024 12:2 2 PM CDT Aura Torre WEB ANALYST, HOSPITAL NURSE POINT OF CARE TEST ING (MANUAL) Final Result from Last 3 Months Insurance [facility] Care Teams Aquatics Coordinator Relationship Specialty Start Date End Date Albert Ruby MD [address] [address] PCP - General Family Medicine 12/26/23
--- OUTSIDE RECORDS SUMMARY | 2024-08-27 07:01 | XMS_ITS | Encounter Summary ---
Author Organization [facility] Address [address] [place] [address] Care Team Providers Care Roll Up Machine Operator Name Role Phone Magda Gregorio DO Primary Care Provider [phone] Encounter Details Date Type Department Care Team [...] on filedocumented in this encounter Care Teams Roll Up Machine Operator Relationship Specialty Start [place] [address] [facility] [address] [place] [address] PCP - General Internal Medicine 10/14/22 documented as of this encounter
--- OUTSIDE RECORDS SUMMARY | 2024-08-27 07:01 | XMS_ITS | Encounter Summary ---
Author Organization [facility] Address [address] [place] [address] Phone Care Team Providers Care Traffic Officer Name Role Phone Albert Ruby MD Primary Care Provider [phone] Reason for Visit * Reason Comments Cough Encounter Details Date Type Department Care Team (Latest Contact Info) Description 06/06/2024 12:25 PM CDT Urgent Care Visit [facility] [address] [place] [address] Aura Torre, JASPER, PHLEBOTOMIST SUPERVISOR/INSTRUCTOR [address] [place] [address] Viral upper respiratory tract infection [...] through Care Everywhere. * Viral Respiratory Infection [id number] (Russian) documented in this encounter Progress Notes * Jay Armando - 06/06/2024 12:25 PM CDT Laura complains of Cough, headache, and congestion. PT states symptoms started yesterday and have worsened since onset. 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 Pt [...] Neurological: Positive for headaches. * Aura Torre, CASING IN LINE SETTER, PHLEBOTOMIST SUPERVISOR/INSTRUCTOR - 06/06/2024 12:25 PM CDT HPI: Laura Finley is a 23 y.o. female in the [facility] care today for body aches and congestion. She denies fever and chills. She has had some ear pain but denies sore throat. She has had headachesbut denies a cough. 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
--- OUTSIDE RECORDS SUMMARY | 2024-08-27 07:01 | XMS_ITS | Encounter Summary ---
Author Organization [facility] Address [address] [place] [address] Care Team Providers Care Singing Messenger Name Role Phone Bailey Hastings MD Primary Care Provider Reason for Visit * Reason Onset Date Comments Fever 09/15/2011 Encounter Details Date Type Department Care Team (Late st Contact Info) Description 09/15/2011 Telephone [facility] Pediatrics [place] [address] [place] [address] 110 [place] [address] Bailey Hastings MD [address] [facility] [address] [place] [address] Fever Social History Tobacco Use Types Packs/Day Years Used Date Smoking Tobacco: Never Assessed Alcohol Use Standard Drinks/Week Comments No 0 (1 standard drink = 0.6 oz pur e alcohol) Sex and Gender Information Value Date Recorded Sex Assigned at Not on file Gender Identity Not on file Sexual Orientation Not on file documented as of this encounter Miscellaneous Notes * Telephone Encounter - Beronica Pate - 09/15/2011 9:11 AM CST Laura started vomiting this am. She has vomited 1 times in the last 24 hours. Diarrhea: no Blood in emesis: no Urine Output: normal Activity level today: Fine until she started vomiting Abdominal pain today: no The parents were educated on general signs and symptoms of dehydration including: Dry mouth, absenttears, depression of the soft spot (in infants), decreased urination, inability to drink adequate amounts of fluid, or vomiting is persistent beyond 24 hours. RIDER documented in this encounter Plan of Treatment Not on file documented as of this encounter Visit Diagnoses Not on filedocumented in this encounter Care Teams Singing Messenger Relationship Specialty Start Date End Date Bailey Hastings MD PCP - General 10/29/08 12/09/15 documented as of this encounter
--- OUTSIDE RECORDS SUMMARY | 2024-08-27 07:01 | XMS_ITS | Encounter Summary ---
Author Organization [facility] Address [address] [place] [address] Care Team Providers Care Embedded Developer Name Role Phone Magda Gregorio DO Primary Care Provider [phone] Encounter Details Date Type Department Care Team (Late st Contact Info) Description 12/26/2023 External Device Data STL ABSTRACTION Provider, Abstract [...] on filedocumented in this encounter Care Teams Embedded Developer Relationship Specialty Start [place] [address] [facility] [address] [place] [address] PCP - General Internal Medicine 10/14/22 documented as of this encounter
--- OUTSIDE RECORDS SUMMARY | 2024-08-27 07:01 | XMS_ITS | Encounter Summary ---
Author Organization [facility] Address [address] [place] [address] Care Team Providers Care Flanging Roll Operator Name Role Phone Magda Gregorio DO Primary Care Provider [phone] Reason for Visit * Reason Onset Date Comments Red Flag / high blood pressure,headache 05/02/20 23 Encounter Details Date Type Department Care Team (Late st Contact Info) Description 05/02/2023 Telephone [facility] - [facility] [address] [address] [place] [address] [address] Red Flag / high blood pressure,headache Social History Tobacco Use Types Packs/Day Years [...] encounter Miscellaneous Notes * Telephone Encounter - Laura Conteh RN - 05/02/2023 4:26 PM CDT Per patient she is having headache, lightheaded, BP 168/102 and 174/108, chest pain and tightness, nausea and vomiting. She is at the ER but it has been a 6 hour wait so they are trying to leave and be seen in the office. Advised that the ER is the proper place for her current symptoms and BP and they can try a different ER. Our next available opening is next week and we do not recommend that shewait that long given what is going on. Patient and mother said okay. * Telephone Encounter - Jessica Brown - 05/02/2023 4:18 PM CDT The caller has been advised they will be transferred to a clinical coworker as they have presented the following information that may require further consultation or possible emergency action. Caller: Laura Finley Reason for Triage: Patient said blood pressure high,and she is lightheaded this started today Call back number: [phone] (home) Home Phone Work Phone documented in this encounter Plan of Treatment Not on file documented as of this encounter Visit Diagnoses Not on filedocumented in this encounter Care Teams Flanging Roll Operator Relationship Specialty [place] [address] [facility] [address] [place] [id number] PCP - General Internal Medicine 10/14/22 documented as of this encounter
--- OUTSIDE RECORDS SUMMARY | 2024-08-27 07:01 | XMS_ITS | Encounter Summary ---
Author Organization [facility] Address [address] [place] [address] Care Team Providers Care Curator Of Collections Name Role Phone Bailey Hastings MD Primary Care Provider Reason for Visit * Reason Comments Fever low grade temp 99, b ginger aches, sore throat, stomach pain xyesterday, cough, congestion Meds: See List, Nyquil, Ibuprofen Encounter Details Date Type Department Care Team (Late st Contact Info) Description 09/26/2012 12:45 PM DOUGH MOLDER HAND Office Visit [facility] [address] [place] [phone] Bailey Hastings MD [address] [facility] [address] [place] [address] Influenza A; Sore throat; Cough Social History Tobacco Use Types Packs/Day [...] Sign Reading Time Taken Comments Blood Pressure - - Pulse - - Temperature 36.7 ??C (98.1 ??F) 09/26/2012 12:[address] Respiratory Rate - - Oxygen Saturation - - Inhaled Oxygen Concentration - - Weight 79.8 kg (176 lb) 09/26/2012 12:40 PM DOUGH MOLDER HAND Height - - Body Mass Index - - documented in this encounter Progress Notes * Lani Florentino - 09/26/2012 1:02 PM CST Results for orders placed in visit on 09/26/12 POC INFLUENZA A AND B Component Value Range POC INFLUENZA A AG POSITIVE POC INFLUENZA B AG NEGATIVE H MOLDER HAND * Bailey Hastings MD - 09/26/2012 12:55 PM CST Sore throat, no fever, cough abdominal pain, no vomiting. For 2 days Temp(Src) 98.1 ??F (36.7 ??C) (Tympanic) Wt 79.833 kg (176 lb) Alert, No acute distress, non-toxic appearing Ears-clear tm's bilaterally Throat-clear, no tonsillar swelling, exudate Nose-no rhinorhea Chest-clear to auscultation bilaterally Heart-regular rate and rhythm , no murmur Skin- no rash Flu a + tamiflu ordered Refilled albuterol H MOLDER HAND documented in this encounter Plan of Treatment Not on file documented as of this encounter Procedures Procedure Name Priority Date/Time Associated Diagnosis Comments POC INFLUENZA A AND B ANTIGEN Routine 09/26/2012 1:02 PM DOUGH MOLDER HAND Sore throat Cough documented in this encounter Results * (ABNORMAL) POC INFLUENZA A AND B (09/26/2012 1:02 PM DOUGH MOLDER HAND) INFLUENZA A AG POC POSITIVE [facility] INFLUENZA B AG POC NEGATIVE [facility] Nasopharyngeal Bailey Hastings MD POINT OF CARE TESTI [facility] documented in this encounter Visit Diagnoses Diagnosis Influenza A Influenza with other respiratory manifestations Sore throat Acute pharyngitis Cough documented in this encounter Care Teams Curator Of Collections Relationship Specialty Start Date End Date Bailey Hastings MD PCP - General 10/29/08 12/09/15 documented as of this encounter
--- OUTSIDE RECORDS SUMMARY | 2024-08-27 07:01 | XMS_ITS | Encounter Summary ---
Author Organization [facility] Address [address] [place] [address] Care Team Providers Care Licensed Weigher Name Role Phone Bailey Hastings MD Primary Care Provider Encounter Details Date Type Department Care Team (Late st Contact Info) Description 09/29/2011 5:07 PM ARTS ADMINISTRATOR OR MANAGER - 09/29/2011 11:59 PM ARTS ADMINISTRATOR OR MANAGER Hospital Encounter [facility] Support [facility] [address] [place] [address] Grace Velázquez, GRANTS ANALYST [address] [facility] [address] [place] [address] Pharyngitis Discharge Disposition: Home or Self Care [...] Date lansoprazole (PREVACID SOLUTAB) 30 mg Oral TbLDIndications:Abdominal pain, other specified site,Nausea Take 1 Tab by mouth daily before breakfast. 30 Tab 1 01/17/2011 montelukast (SINGULAIR) 10 mg Oral tabletIndications:Cough Take 1 Tab by mouth daily for 30 days. 30 Tab 4 09/16/2011 09/07/2012 documented as of this encounter Plan of Treatment Not on file documented as of this encounter Procedures Procedure Name Priority Date/Time Associated Diagnosis Comments STREPTOCOCCUS GROUP A CULTURE Routine 09/29/2011 5:07 PM ARTS ADMINISTRATOR OR MANAGER Pharyngitis documented in this encounter Results * STREPTOCOCCUS GROUP A CULTURE (09/29/2011 5:07 PM ARTS ADMINISTRATOR OR MANAGER) FINAL MICRO REPORT No Group A, C, or G beta Streptococcus isolated. [facility] Specimen of unknown material (specimen) SPECIMEN FROM THROAT / Unknown 09/29/2011 5:07 PM ARTS ADMINISTRATOR OR MANAGER 09/29/2011 6:39 PM ARTS ADMINISTRATOR OR MANAGER Comment:THROAT Graec Velázquez NP MICROBIOLOGY - [facility] ORDERABLES [facility] CLIA# [id number] [address] [place] [address] documented in this encounter Visit Diagnoses Diagnosis Pharyngitis Acute pharyngitis documented in this encounter Care Teams Licensed Weigher Relationship Specialty Start Date End Date Bailey Hastings MD PCP - General 10/29/08 12/09/15 documented as of this encounter
--- OUTSIDE RECORDS SUMMARY | 2024-08-27 07:01 | XMS_ITS | Clinical Summary ---
Author Organization [facility] Address [address] [place] [address] Care Team Providers Care Fuel Technician Name Role Phone Magda Gregorio DO Primary Care Provider [phone] Allergies Active Allergy Reactions Criticality Noted Date Comments Apple Juice Nausea and Vomiting Low 01/05/2010 Medications Medication Sig Dispensed Refills Start Date End Date Status lansoprazole (PREVACID SOLUTAB) 30 mg Oral TbLDIndications:Abdom inal pain, other specified site,Nausea Take 1 Tab by mouth daily before breakfast. 30 Tab 1 01/17/2011 Active ALPRAZolam (XANAX) 0.25 mg tablet Take 0.25 mg by mouth 1 time daily as needed. 07/05/2022 Active metoprolol succinate (TOPROL XL) 50 mg Extended Release 24 hour tablet Take 1 Tablet (50 mg) by mouth daily. 90 Tablet 1 11/25/2022 Active sertraline (Zoloft) 50 mg tablet Take 1 Tablet (50 mg) by mouth daily. 90 Tablet 1 11/25/2022 Active Active Problems Problem Noted Date Diagnosed Date Gastroesophageal reflux disease without esophagi tis 05/20/2020 Gall bladder disease 02/21/2020 Palpitations 05/29/2018 Syncope 05/29/2018 Tachycardia 05/29/2018 Migraine 04/11/2018 Obesity 03/02/2018 PMS (premenstrual syndrome) 11/24/2017 Anxiety 08/02/2017 Insomnia 01/23/2017 Fracture of tibia, distal, right, closed 013 Allergic rhinitis 01/06/2011 Restless legs syndrome (RLS) 11/04/2010 Achrochordon 01/05/2010 Resolved Problems Problem Noted Date Diagnosed Date Resolved Date Abdominal pain 01/13/2011 05/01/2013 Immunizations Name Administration Dates Next Due (BEXSERO)(10-25 YR) MENINGOC OCCAL RECOMBIANT PROTEIN AND OUTER MEMBRANE VESICLE VACCINE, SEROGROUP B MENB-4C, 2 DOSE IM 08/02/2017,04/19/2017 (GARDASIL)(9-45 YRS) HUMAN PAPILLOMAVIRUS VACCINE, TYPES 6, 11, 16, 18, QUADRIVALENT (4VHPV), 3 DOSE, IM 08/22/2011 (HAVRIX/VAQTA)(12 MO-18 YRS) HEPATITIS A VACCINE 0.5 ML PED/ADOL 2 DOSE, IM 08/22/2011,10/29/2008 (INFANRIX)(6 WKS-6 YRS) DIPT HERIA, TETANUS TOXOIDS, AND ACCELLULAR PERTUSSIS VACCINE (DTAP), 0.5 ML IM 04/18/2005,03/26/2001,03/17/2000,01/17,1999 (IPOL)(6 WKS AND UP) POLIOVI LOAN VACCINE, INACTIVATED (IPV), 3 DOSE, SUBCUT OR IM 04/18/2005,03/26/2001,01/13/2000,12/05 (KINRIX/QUADRACEL)(4 - 6 YRS ) DIPHTHERIA, TETANUS TOXOIDS AND ACELLULAR PERTUSSIS VACCINE, POLIO, INACTIVATED (DTAP-IPV) (PF) IM 04/18/2005,03/26/2001,01/18/2000,12/05 (M-M-R II/PRIORIX)(12 MO UP) MEASLES, MUMPS AND RUBELLA VIRUS VACCINE, 0.5 ML IM/SUBCUT 04/15/2005,12/22/2000 (MENACTRA)(9 MO-55 YR) MENIN GOCOCCAL POLYSACCHARIDE A, C, Y AND W-135 DIPTHERIA TOXOID CONJUGATE VACCINE, (PF), 0.5ML, IM 04/19/2017 (PFIZER)(12 YR UP) COVID-19 VACCINE - EMERGENCY USE AUTHORIZATION, MRNA, [id number](PF) 30 MCG/0.3 ML IM SUSP 05/13/2021,02/23/2021 (PROQUAD)(12 MOS-12 YRS)WANDER LES, MUMPS, RUBELLA, AND VARICELLA VIRUS VACCINE. 0.5 ML, SUBCUT 04/15/2005,12/22/2000 (RECOMBIVAX HB/ENGERIX-B)(0- 19 YRS) HEPATITIS B VACCINE 5 MCG/0.5 ML OR 10 MCG/0.5 ML PED OR ADOL 3 DOSE (PF), IM 12/22/2000,07/03/2000,04/17/2000,03/17 (VARIVAX)(12 MOS UP)VARICELL A VIRUS VACCINE (PF) 0.5 ML, SUB CUT 12/22/2000 DTaP, Unspecified Formulation 04/18/2005 ,03/26/2001,03/17/2000,01/17,1999 HIB, Unspecified Formulation 03/26/2001, 12/22/2000,03/17/2000,01/17,1999 HPV Vaccine 3 Dose IM VFC 05/01/2013 HPV, Unspecified Formulation 05/01/2013,08/22/20 11 Hepatitis B Vaccine 03/26/2001,07/03/2000,1999 Hepatitis B Vaccine, Unspeci fied Formulation 03/26/2001,01/13/2000 History of Chickenpox 09/11/2006 Influenza Vaccine Split 3+ Yrs IM 07/25/2011 Influenza Vaccine Split 3+ Yrs IM VFC 06/16/2010 Influenza Virus Vaccine, Spl it Virus (Incl. Purified Surface antigen)-retired CODE 06/16/2010 Influenza, Unspecified Formulation 05/12/2020,,06/16/2010 Meningococcal A Conjugate Vaccine IM 08/22/2011 Meningococcal MCV4, Unspecif ied Formulation 04/19/2017 Pneumococcal 7-valent conjug ate vaccine IM 03/26/2001,07/03/2000,01/18/2000 Poliovirus Vaccine Live Oral 04/18/2005 Tdap Vaccine > 7 Yo IM VFC 05/01/2013 Family History Medical History Relation Name Comments Healthy Father Diabetes Maternal Aunt Other Maternal Grandfather of PE Diabetes Maternal Grandmother Other Maternal Grandmother of PE Healthy Mother Healthy Sister Breast Cancer Neg Hx Colon Cancer Neg Hx Relation Name Status Comments Father Alive Maternal Aunt Alive Maternal Grandfather Maternal Grandmother Mother Alive Sister Alive Social History Tobacco Use Types Packs/Day Years [...] Comments Blood Pressure 118/74 10/14/2022 10:43 AM ASSISTANT TO THE PRESIDENT Pulse 75 10/14/2022 10:43 AM ASSISTANT TO THE PRESIDENT Temperature 36.9 ??C (98.4 ??F) 10/14/2022 10:[address] Respiratory Rate 20 01/21/2011 9:13 AM CDT Oxygen Saturation 99% 10/14/2022 10:43 AM ASSISTANT TO THE PRESIDENT Inhaled Oxygen Concentration - - Weight 125.2 kg (276 lb) 10/14/2022 10:43 AM ASSISTANT TO THE PRESIDENT Height 167.6 cm (5' 6 ) 10/14/2022 10:43 AM ASSISTANT TO THE PRESIDENT Body Mass Index 44.55 10/14/2022 10:43 AM ASSISTANT TO THE PRESIDENT Plan of Treatment Health Maintenance Due Date Last Done Comments DTAP/TDAP/TD VACCINES (3 - Td or Tdap) 05/01/2023 05/01/2013, 04/18/2005, 04/18/2005, Additional history exists Preventative Visit- Commercial 09/11/2023 10/14/2022, 07/01/2022, 11/13/2020, Additional history exists INFLUENZA VACCINE (#1) 2024 , 07/25/2011, 06/16/2010 COVID-19 Vaccine ( season) 2024 05/13/2021, 02/23/2021 CERVICAL CANCER SCREENING 09/08/2025 09/08/2022 HEPATITIS B VACCINES Completed 03/26/2001, 03/26/2001, 12/22/2000, Additional history exists PNEUMOCOCCAL VACCINE 0-64 YEARS Aged Out 03/26/2001, 07/03/2000, 01/18/2000 No longer eligible based on patient's age to complete this topic HPV VACCINES Completed 05/01/2013, 04/12, 08/22/2011, Additional history exists Advance Directives For more information, please contact: [phone] * Full Code (Latest Code Status on File) Date Activated Date Inactivated Comments 01/21/2011 8:00 AM 01/21/2011 11:52 AM Care Teams Fuel Technician Relationship Specialty Start [place] [address] [facility] [address] [place] [phone] PCP - General Internal Medicine 10/14/22
--- OUTSIDE RECORDS SUMMARY | 2024-08-27 07:02 | XMS_ITS | Encounter Summary ---
Author Organization [employer] [facility] Address [address] [place] [address] Care Team Providers Care Continuum Of Care Manager Name Role Phone Bailey Hastings MD Primary Care Provider Reason for Referral * Outpatient Services (Routine) - Closed Specialty Diagnoses / Procedures Referred By Contac t Referred To Contact Ultrasound Diagnoses Abdominal pain, other specified site Procedures US GALLBLADDER Grace Velázquez NP [address] [address] Referral ID Status Reason Start Date Expiration Date Visits Re quested Visits Authorized [id number] Closed 01/13/2011 07/12/2011 1 1 Reason for Visit * Reason Comments Abdominal Pain Sharp stabbing pain on the right side of her abs, seen in ER last pm (normal CT, increased white cells). Vomiting, no fever. Meds: Zofran Encounter Details Date Type Department Care Team (Late st Contact Info) Description 01/13/2011 2:45 PM CDT Office Visit [facility] [address] [facility] [place] [address] Grace Velázquez NP [address] [facility] [address] [place] [address] Abdominal pain, other specified site (Primary Dx) Social History Tobacco Use Types Packs/Day Years Used Date Smoking Tobacco: Never Assessed Sex and Gender Information Value Date Recorded Sex Assigned at Not on file Gender Identity Not on file Sexual Orientation Not on file documented as of this encounter Last Filed Vital Signs Vital Sign Reading Time Taken Comments Blood Pressure 100/62 01/13/2011 2:47 PM CDT Pulse - - Temperature 37.4 ??C (99.4 ??F) 01/13/2011 2:47 PM CD T Respiratory Rate - - Oxygen Saturation - - Inhaled Oxygen Concentration - - Weight 59 kg (130 lb) 01/13/2011 2:47 PM CDT Height 149.9 cm (4' 11 ) 01/13/2011 2:47 PM CDT Body Mass Index 26.26 01/13/2011 2:47 PM CDT Body Mass Index Percentile 96.42% 01/13/2011 2:4 7 PM CDT Growth Chart: [facility] (Girls, 2- 20 Years) documented in this encounter Progress Notes * Grace Velázquez NP - 01/13/2011 2:50 PM CDT Chief Complaint Patient presents with ??? Abdominal Pain Sharp stabbing pain on the right side of her abs, seen in ER last pm (normal CT, increased white cells). Vomiting, no fever. Meds: Zofran HPI: Patient complaining of abdominal pain on the right side since yesterday afternoon. Mom took her to [facility] ER last night because the pain was so severe. Patient was given Toradol for the pain, but did not get any relief. Patient did vomit after she was given Toradol. Also complaining of headache after she vomited. Headache off and on since then. CT scan was normal. CBC showed slightly elevated WBC's. All other labs were within normal limits. Patient is having nausea and vomiting off and on, mom attributes to pain. Diarrhea x 1 yesterday, x 2 today. No blood or mucus in stool. No fever. Poor sleep last night due to pain. O: General: alert, bent forward and splinting right side Eyes: Clear Ears: Bilateral T.M.'s clear Nose: Clear Throat: No erythema Neck: No swollen or tender nodes Lungs: CTA Abdomen: Soft, guarding right upper and lower quadrant. Pain with palpation to right upper and lower quadrant. Bowel sounds normal. Skin: No rash A: Abdominal pain P: Discussed patient with Dr. Cornejo. Reviewed CT scan and lab results from ER. Dr. Cornejo recommended re checking labs. CBC, CRP, CMP, lipase and amylase levels to be checked. Gall bladder ultrasound scheduled for tomorrow AM. Counseled mom she can try mylanta or maalox 1 TBSP every 6 hours to see if that relieves any of the pain. To follow up with ultrasound and lab results in the AM. ER parameters reviewed. Mom comfortable with plan. documented in this encounter Plan of Treatment Not on file documented as of this encounter Procedures Procedure Name Priority Date/Time Associated Diagnosis Comments US GALLBLADDER Routine 01/14/2011 8:36 AM CDT Abdominal pain, other specified site documented in this encounter Results * US GALLBLADDER (01/14/2011 8:36 AM CDT) Anatomical Region Laterality Modality Abdomen Ultrasound 01/14/2011 8:21 AM CDT Impressions 01/14/2011 8:41 AM CDT IMPRESSION: Negative exam Narrative 01/14/2011 8:41 AM CDT ULTRASOUND OF THE ABDOMEN LIMITED HISTORY: ??Abdominal Pain. FINDINGS: Multiple transverse, longitudinal and oblique images of the right upper quadrant were obtained. The liver has a normal size, contour and echotexture. There is no duct dilatation, fluid collection or mass. The pancreas is partially seen and the body and head appear normal. The gallbladder appears normal without evidence of gallstones, gallbladder wall thickening or pericholecystic fluid. The common bile duct has a normal caliber and there is no evidence of intrahepatic ductal dilatation. There is no evidence of ascites or fluid in Pabon's pouch. Procedure Note Oralia Villalba MD - 01/14/2011 ULTRASOUND OF THE ABDOMEN LIMITED HISTORY: Abdominal Pain. FINDINGS: Multiple transverse, longitudinal and oblique images of the right upper quadrant were obtained. The liver has a normal size, contour and echotexture. There is no duct dilatation, fluid collection or mass. The pancreas is partially seen and the body and head appear normal. The gallbladder appears normal without evidence of gallstones, gallbladder wall thickening or pericholecystic fluid. The common bile duct has a normal caliber and there is no evidence of intrahepatic ductal dilatation. There is no evidence of ascites or fluid in Pabon's pouch. IMPRESSION IMPRESSION: Negative exam Grace Cecilio Eber GRIMM US ORDERABLES * COMPREHENSIVE METABOLIC PANEL (01/13/2011 3:51 PM CDT) SODIUM 140 135 - 145 mmol/L [facility] POTASSIUM 4.0 3.5 - 4.9 mmol/L [facility] CHLORIDE 105 96 - 108 mmol/L [facility] CO2 25 22 - 30 mmol/L [facility] CALCIUM 9.5 8.8 - 10.8 mg/dL [facility] BUN 9 6 - 20 mg/dL [facility] CREATININE 0.52 0.44 - 0.68 mg/dL [facility] GLUCOSE 82 60 - 110 mg/dL [facility] TOTAL PROTEIN 7.3 6.3 - 8.6 g/dL [facility] ALBUMIN 4.2 3.8 - 5.4 g/dL [facility] BILIRUBIN TOTAL 0.2 0.2 - 1.0 mg/dL [facility] ALKALINE PHOSPHATASE 264 35 - 300 U/L [facility] AST 19 12 - 32 U/L [facility] ALT 27 0 - 31 U/L [facility] GFR, N/A:MDRD equation validated for pts. >18 yrs. >=60 mL/min/1 .7 sq meter [facility] GFR N/A:MDRD equation validated for pts. >18 yrs. >=60 mL/min/1 .7 sq meter [facility] Comment: GFR is calculated using the IDMS-Traceable Modification of Diet in Renal Disease (MDRD) Study formula and is only valid for patients 18 years or older. Further interpretative information is available in the Laboratory Services Policy Manual on the [facility] Intranet at: [email or web address].[email or web address]/ Blood specimen (specimen) 01/13/2011 3:51 PM CDT 01/13/2011 5:10 PM CDT Grace Velázquez NP CHEMISTRY ORDERAB LES Performing Organization Address [facility] [address] [facility] Co de Phone Number [facility] CLIA# [id number] [address] [place] [address] * LIPASE (01/13/2011 3:51 PM CDT) LIPASE 16 13 - 60 U/L [facility] Blood specimen (specimen) 01/13/2011 3:51 PM CDT 01/13/2011 5:10 PM CDT Grace Velázquez NP CHEMISTRY ORDERAB LES Performing Organization Address [facility] [address]/[facility] Co de Phone Number [facility] CLIA# [id number] [address] [place] [address] * AMYLASE (01/13/2011 3:51 PM CDT) AMYLASE 30 28 - 100 U/L [facility] Blood specimen (specimen) 01/13/2011 3:51 PM CDT 01/13/2011 5:10 PM CDT Grace Velázquez NP CHEMISTRY ORDERAB LES Performing Organization Address [facility] [address]/[facility] Co de Phone Number [facility] CLIA# [id number] [address] [place] [address] * C-REACTIVE PROTEIN (01/13/2011 3:51 PM CDT) CRP 0.8 0.0 - 0.8 mg/dL [facility] Blood specimen (specimen) 01/13/2011 3:51 PM CDT 01/13/2011 5:10 PM CDT Grace Velázquez INTERVENTION NURSE CHEMISTRY ORDERAB LES [facility] CLIA# [id number] [address] [place], [place] [address] * (ABNORMAL) CBC WITH DIFFERENTIAL, PEDIATRIC (01/13/2011 3:51 PM CDT) NRBC 0 <=0 /100 WBC [facility] WBC 13.2 4.5 - 13.5 K/uL [facility] RBC 4.48 4.00 - 5.20 M/uL [facility] HEMOGLOBIN 11.6 11.5 - 15.5 g/dL [facility] HEMATOCRIT 35.9 35.0 - 45.0 % [facility] MCV 80.1 77.0 - 95.0 fL [facility] MCH 25.9 24.0 - 30.0 pg [facility] MCHC 32.3 30.0 - 36.0 % [facility] PLATELETS 412(H) 140 - 350 K/uL [facility] MPV 11.6 9.3 - 12.4 fL [facility] RDW 14.3 11.5 - 14.5 % [facility] RDW-STDEV 41.3 37.1 - 48.7 fL [facility] NEUTROPHILS, SEG 59 36 - 74 % [facility] LYMPHOCYTES 35 18 - 53 % [facility] MONOCYTES 5 2 - 13 % [facility] EOSINOPHILS 1(L) 2 - 12 % [facility] BASOPHILS 0 0 - 3 % [facility] PLATELET EST. Consistent w/ count Normal [facility] NEUTROPHIL ABSOLUTE 7.79 K/uL [facility] LYMPHOCYTE ABSOLUTE 4.62 K/uL [facility] MONOCYTE ABSOLUTE 0.66 K/uL [facility] EOSINOPHIL ABSOLUTE 0.13 K/uL [facility] BASOPHILS ABSOLUTE 0.00 K/uL [facility] RBC MORPHOLOGY Normal Normal [facility] Blood specimen (specimen) 01/13/2011 3:51 PM CDT 01/13/2011 5:10 PM CDT Grace Velázquez NP HEMATOLOGY ORDERA BLES [facility] CLIA# [id number] [address] [place] [address] documented in this encounter Visit Diagnoses Diagnosis Abdominal pain, other specified site- Primary Abdominal pain, other specified site documented in this encounter Care Teams Continuum Of Care Manager Relationship Specialty Start Date End Date Bailey Hastings MD PCP - General 10/29/08 12/09/15 documented as of this encounter
--- OUTSIDE RECORDS SUMMARY | 2024-08-27 07:02 | XMS_ITS | Encounter Summary ---
Author Organization [employer] Address [address] [place] [address] Care Team Providers Care Furniture Cleaner Name Role Phone Bailey Hastings MD Primary Care Provider Encounter Details Date Type Department Care Team (Late st Contact Info) Description 12/22/2009 Abstract [facility] [address] [place] [address] Bailey Hastings MD [address] [facility] [address] [place] [address] Social History Tobacco Use Types [...] on filedocumented in this encounter Care Teams Furniture Cleaner Relationship Specialty Start Date End Date Bailey Hastings MD PCP - General 10/29/08 3 documented as of this encounter
--- OUTSIDE RECORDS SUMMARY | 2024-08-27 07:02 | XMS_ITS | Encounter Summary ---
Author Organization [facility] Address [address] [place] [address] Care Team Providers Care Associate Field Service Engineer Name Role Phone Bailey Hastings MD Primary Care Provider Reason for Visit * Reason Onset Date Comments Medication Refill 02/17/2011 Encounter Details Date Type Department Care Team (Late st Contact Info) Description 02/17/2011 Refill [facility] [place] [address] [place] [address] [address] [place] [address] Bailey Hastings MD [address] [facility] [address] [place] [address] Social History Tobacco Use Types [...] on filedocumented in this encounter Care Teams Associate Field Service Engineer Relationship Specialty Start Date End Date Bailey Hastings MD PCP - General 10/29/08 12/09/15 documented as of this encounter
--- OUTSIDE RECORDS SUMMARY | 2024-08-27 07:02 | XMS_ITS | Encounter Summary ---
Author Organization [employer] Address [address] [place] [address] Care Team Providers Care Senior Java Web Application Developer Name Role Phone Bailey Hastings MD Primary Care Provider Encounter Details Date Type Department Care Team (Late st Contact Info) Description 11/10/2009 5:12 PM POLICE LIEUTENANT - 11/10/2009 11:59 PM POLICE LIEUTENANT Hospital Encounter [facility] Support Services [facility] [employer] [address] [place] [address] Bailey Hastings MD [address] [facility] [place] [address] [place] [address] Discharge Disposition: Home or Self Care Social History Tobacco Use Types Packs/Day Years Used Date Smoking Tobacco: Never Assessed Sex and Gender Information Value Date Recorded Sex Assigned at Not on file Gender Identity Not on file Sexual Orientation Not on file documented as of this encounter Medications at Time of Discharge Medication Sig Dispensed Refills Start Date End Date albuterol (PROVENTIL,VENTOLIN) 90 mcg/Actuation Inhalation HFAAIndications:Cough Take 2 Puffs by inhalation every 6 hours as needed for Other (See Comment). cough 1 Inhaler 1 11/10/2009 01/29/2010 montelukast (SINGULAIR) 5 mg Oral ChewIndications:Asthma with acute exacerbation,Allergic rhinitis, cause unspecified Take 1 Tab by mouth nightly as needed. 30 Tab 5 11/09/2009 08/10/2010 PRILOSEC POIndications:Abdomina l pain Take by mouth. 02/23/2011 documented as of this encounter Plan of Treatment Not on file documented as of this encounter Procedures Procedure Name Priority Date/Time Associated Diagnosis Comments STREPTOCOCCUS GROUP A CULTURE Routine 11/10/2009 10:15 AM POLICE LIEUTENANT Acute Pharyngitis documented in this encounter Results * STREPTOCOCCUS GROUP A CULTURE (11/10/2009 10:15 AM POLICE LIEUTENANT) PRELIMINARY REPORT Pending [facility] FINAL REPORT No Group A, C, or G beta Streptococcus isolated. [facility] SPECIMEN FROM THROAT / Unknown 11/10/2009 10:15 AM POLICE LIEUTENANT 11/10/2009 6:54 PM POLICE LIE[employer]ENANT Bailey Hastings MD MICROBIOLOGY - [facility] ORDERABLES [facility] CLIA# [id number] [address] [place] [address] documented in this encounter Visit Diagnoses Diagnosis Acute pharyngitis documented in this encounter Care Teams Senior Java Web Application Developer Relationship Specialty Start Date End Date Bailey Hastings MD PCP - General 10/29/08 12/09/15 documented as of this encounter
--- OUTSIDE RECORDS SUMMARY | 2024-08-27 07:02 | XMS_ITS | Encounter Summary ---
Author Organization [facility] Address [address] [place] [address] Care Team Providers Care Java Development Manager Name Role Phone Bailey Hastings MD Primary Care Provider Encounter Details Date Type Department Care Team (Late st Contact Info) Description 06/02/2011 Orders Only [facility] [place] [address] [facility] [address] [place] [phone] Grace Velázquez NP [address] [facility] [address] [place] [address] Social History Tobacco Use Types Packs/Day Years Used Date Smoking Tobacco: Never Assessed Alcohol Use Standard Drinks/Week Comments No 0 (1 standard drink = 0.6 oz pur e alcohol) Sex and Gender Information Value Date Recorded Sex Assigned at Not on file Gender Identity Not on file Sexual Orientation Not on file documented as of this encounter Progress Notes * Grace Velázquez NP - 06/02/2011 9:32 AM CDT Scabies exposure, has been in the home of the family. Counseled will treat. documented in this encounter Plan of Treatment Not on file documented as of this encounter Visit Diagnoses Not on filedocumented in this encounter Care Teams Java Development Manager Relationship Specialty Start Date End Date Bailey Hastings MD PCP - General 10/29/08 12/09/15 documented as of this encounter
--- OUTSIDE RECORDS SUMMARY | 2024-08-27 07:02 | XMS_ITS | Encounter Summary ---
Author Organization [employer] Address [address] [place] [address] Care Team Providers Care Podiatrist Orthopedic Name Role Phone Bailey Hastings MD Primary Care Provider Encounter Details Date Type Department Care Team (Late st Contact Info) Description 06/07/2011 5:52 PM CDT - 06/07/2011 11:59 PM CDT Hospital Encounter [facility] Support Services [facility] [employer] [address] [place] [address] Bailey Hastings MD [address] [facility] [address] [place] [address] Discharge Disposition: Home or Self [...] 1 01/17/2011 montelukast (SINGULAIR) 10 mg Oral tablet Take 10 mg by mouth daily at bedtime. 09/16/2011 montelukast (SINGULAIR) 10 mg Oral tabletIndications:Cough Take 1 Tab by mouth daily for 30 days. 30 Tab 4 08/10/2010 09/16/2011 documented as of this encounter Plan of Treatment Not on file documented as of this encounter Procedures Procedure Name Priority Date/Time Associated Diagnosis Comments STREPTOCOCCUS GROUP A CULTURE Routine 06/07/2011 5:52 PM CDT Acute pharyngitis Cough documented in this encounter Results * STREPTOCOCCUS GROUP A CULTURE (06/07/2011 5:52 PM CDT) FINAL MICRO REPORT No Group A, C, or G beta Streptococcus isolated. [facility] Specimen of unknown material (specimen) SPECIMEN FROM THROAT / Unknown 06/07/2011 5:52 PM CDT 06/07/2011 6:04 PM CDT Comment:THROAT Bailey Hastings MD MICROBIOLOGY - [facility] ORDERABLES [facility]# [id number] [address] [place] [address] documented in this encounter Visit Diagnoses Diagnosis Acute pharyngitis Cough documented in this encounter Care Teams Podiatrist Orthopedic Relationship Specialty Start Date End Date Bailey Hastings MD PCP - General 10/29/08 12/09/15 documented as of this encounter
--- OUTSIDE RECORDS SUMMARY | 2024-08-27 07:02 | XMS_ITS | Encounter Summary ---
Author Organization [employer] Address [address] [place] [address] Care Team Providers Care Spring Maker Name Role Phone Bailey Hastings MD Primary Care Provider Reason for Visit * Reason Onset Date Comments Vomiting 01/27/2011 Encounter Details Date Type Department Care Team (Late st Contact Info) Description 01/27/2011 Telephone [facility] [address] [facility] [place] [address] Bailey Hastings MD [address] [facility] [address] [place] [address] Vomiting Social History Tobacco Use Types Packs/Day [...] encounter Miscellaneous Notes * Telephone Encounter - Grace Velázquez NP - 01/27/2011 11:57 AM CDT LM to call office. * Telephone Encounter - Gianluca Medina - 01/27/2011 11:38 AM CDT Mom called stating she took pt to [facility] earlier this morning, got done with appointment around 11:00 am. Pt had not ate anything until after taking nuclear? medication prescribed by [facility], in order to see the gallbladder. Pt ate after this was done, vomited [address], mom does not know if this could be a bad reaction from the medication or because she was nauseas from not eating. Tried to call back that doctor, office is closed now. Mom wants to know if this is normal or should she come in. documented in this encounter Plan of Treatment Not on file documented as of this encounter Visit Diagnoses Not on filedocumented in this encounter Care Teams Spring Maker Relationship Specialty Start Date End Date Bailey Hastings MD PCP - General 10/29/08 12/09/15 documented as of this encounter
--- OUTSIDE RECORDS SUMMARY | 2024-08-27 07:02 | XMS_ITS | Encounter Summary ---
Author Organization [employer] Address [address] [place] [address] Care Team Providers Care Microelectronics Assembler Name Role Phone Bailey Hastings MD Primary Care Provider Reason for Visit * Reason Onset Date Comments Sore Throat 10/23/2010 Encounter Details Date Type Department Care Team (Late st Contact Info) Description 10/23/2010 Telephone [facility] [address] [facility] [place] [address] Bailey Hastings MD [address] [facility] [address] [place] [phone] Sore Throat Social History Tobacco Use Types Packs/Day Years Used Date Smoking Tobacco: Never Assessed Sex and Gender Information Value Date Recorded Sex Assigned at Not on file Gender Identity Not on file Sexual Orientation Not on file documented as of this encounter Miscellaneous Notes * Telephone Encounter - Bailey Hastings MD - 10/23/2010 10:40 AM PULVERIZER MILL OPERATOR [employer] ordered ERIZER MILL OPERATOR documented in this encounter Plan of Treatment Not on file documented as of this encounter Visit Diagnoses Diagnosis Pharyngitis- Primary Acute pharyngitis documented in this encounter Care Teams Microelectronics Assembler Relationship Specialty Start Date End Date Bailey Hastings MD PCP - General 10/29/08 3 documented as of this encounter
--- OUTSIDE RECORDS SUMMARY | 2024-08-27 07:02 | XMS_ITS | Encounter Summary ---
Author Organization [facility] Address [address] [place] [address] Care Team Providers Care Tenant Relations Coordinator Name Role Phone Bailey Hastings MD Primary Care Provider Reason for Visit * Reason Comments Immunization/Injection rt arm red at inj ection site-hep A and Menactra given in rt arm Encounter Details Date Type Department Care Team (Late st Contact Info) Description 08/25/2011 10:00 AM LOSS PREVENTION OPERATIONS MANAGER Office Visit [facility] Pediatrics [address] [place] [phone] Bailey Hastings MD [address] [facility] [address] [place] [address] Immunization reaction (Primary Dx) Social History Tobacco Use Types [...] Reading Time Taken Comments Blood Pressure 114/66 08/25/2011 9:47 AM LOSS PREVENTION OPERATIONS MANAGER Pulse - - Temperature 36.8 ??C (98.2 ??F) 08/25/2011 9:47 AM CS T Respiratory Rate - - Oxygen Saturation - - Inhaled Oxygen Concentration - - Weight 67.1 kg (148 lb) 08/25/2011 9:47 AM LOSS PREVENTION OPERATIONS MANAGER Height 149.9 cm (4' 11 ) 08/25/2011 9:47 AM LOSS PREVENTION OPERATIONS MANAGER Body Mass Index 29.89 08/25/2011 9:47 AM LOSS PREVENTION OPERATIONS MANAGER Body Mass Index Percentile 98.23% 08/25/2011 9:4 7 AM LOSS PREVENTION OPERATIONS MANAGER Growth Chart: CDC (Girls, 2- 20 Years) documented in this encounter Progress Notes * Bailey Hastings MD - 08/25/2011 10:02 AM CST Shots Monday-menactra and hep a, complains of pain and swelling 3cm local reaction right upper arm 1. Normal local reaction to shot. Ice, motrin/naprosyn PREVENTION OPERATIONS MANAGER documented in this encounter Miscellaneous Notes * Patient Instructions - Bailey Hastings MD - 08/25/2011 10:02 AM LOSS PREVENTION OPERATIONS MANAGER Apply ice to area and can use ibuprofen and tylenol PREVENTION OPERATIONS MANAGER documented in this encounter Plan of Treatment Not on file documented as of this encounter Visit Diagnoses Diagnosis Immunization reaction- Primary Other serum reaction due to vaccination documented in this encounter Care Teams Tenant Relations Coordinator Relationship Specialty Start Date End Date Bailey Hastings MD PCP - General 10/29/08 12/09/15 documented as of this encounter
--- OUTSIDE RECORDS SUMMARY | 2024-08-27 07:02 | XMS_ITS | Encounter Summary ---
Author Organization [facility] Address [address] [place] [address] Care Team Providers Care Retail Cosmetics Sales Beauty Advisor Name Role Phone Bailey Hastings MD Primary Care Provider Reason for Referral * Outpatient Services (Routine) - Closed Specialty Diagnoses / Procedures Referred By Contac t Referred To Contact Diagnoses Abdominal pain, other specified site Nausea Procedures NM HEPATOBIL W EJECT FRACTION Adiel Manuel MD [id number] [place] [address] Referral ID Status Reason Start Date Expiration Date Visits Re quested Visits Authorized [id number] Closed 01/18/2011 07/17/2011 1 1 Reason for Visit * Outpatient Services (Routine) - Closed Specialty Diagnoses / Procedures Referred By Contanahy t Referred To Contact Nuclear Medicine Diagnoses Abdominal pain, other specified site Procedures NM HEPATOBIL W EJECT FRACTION [facility] Test Scheduling [address] [address] Referral ID Status Reason Start Date Expiration Date Visits Re quested Visits Authorized [id number] Closed 01/17/2011 07/16/2011 1 1 Encounter Details Date Type Department Care Team (Latest Contact Info) Description 01/27/2011 8:41 AM CDT - 01/27/2011 11:59 PM CDT Hospital Encounter [facility] Nuclear Medicine [facility] [address] [place] [address] Adiel Manuel MD [id number] [place] [address] Discharge Disposition: Home or Self Care Social [...] Pressure - - Pulse - - Temperature - - Respiratory Rate - - Oxygen Saturation - - Inhaled Oxygen Concentration - - Weight 58.5 kg (129 lb) 01/27/2011 8:58 AM CDT Height - - Body Mass Index - - documented in this encounter Medications at Time [...] 30 days. 30 Tab 4 08/10/2010 09/16/2011 PRILOSEC POIndications:Abdominal pain Take by mouth. 02/23/2011 documented as of this encounter Miscellaneous Notes * Scanned Form - Stl Scanning, Him - 01/31/2011 3:04 PM CDT documented in this encounter Plan of Treatment Not on file documented as of this encounter Procedures Procedure Name Priority Date/Time Associated Diagnosis Comments NM HEPATOBIL W PHARM INTERV Routine 01/27/2011 10:45 AM CDT Abdominal pain, other specified site Nausea documented in this encounter Results * NM HEPATOBIL W EJECT FRACTION (01/27/2011 10:45 AM CDT) Anatomical Region Laterality Modality Abdomen Nuclear Medicine 01/27/2011 8:57 AM CDT Impressions 01/27/2011 1:22 PM CDT IMPRESSION: 1. Normal hepatobiliary study with CCK challenge. 2. No evidence for acute or chronic cholecystitis. Narrative 01/27/2011 1:22 PM CDT HEPATOBILIARY STUDY WITH CCK CHALLENGE HISTORY: 10 year old female with right-sided abdominal pain over the past week. PROCEDURE: After injection with 5.4 mCi of [id number], the patient's abdomen was imaged dynamically in the anterior planar view at 1 minute per frame for 42 minutes. Subsequently, the patient was then injected with 1.2 ug of Cholecystokinin over 30 minutes; dynamic imaging was continued during that time. FINDINGS: On the pre CCK images, hepatic tracer uptake is prompt and normal. The gallbladder begins to fill with activity by 12 minutes, and the common bile duct is visualized by 7 minutes. Tracer activity is present within the duodenal sweep by 7 minutes. There are no findings on this phase of the study compatible with acute cholecystitis or biliary ductal obstruction. On the post CCK images, there is prompt emptying of tracer activity from the gallbladder. The gallbladder ejection fraction is calculated to be 65%, a normal value. There are no findings on this portion of the study compatible with chronic or acalculous cholecystitis. Procedure Note Jay Harrison DO - 01/27/2011 HEPATOBILIARY STUDY WITH CCK CHALLENGE HISTORY: 10 year old female with right-sided abdominal pain over the past week. PROCEDURE: After injection with 5.4 mCi of [id number], the patient's abdomen was imaged dynamically in the anterior planar view at 1 minute per frame for 42 minutes. Subsequently, the patient was then injected with 1.2 ug of Cholecystokinin over 30 minutes; dynamic imaging was continued during that time. FINDINGS: On the pre CCK images, hepatic tracer uptake is prompt and normal. The gallbladder begins to fill with activity by 12 minutes, and the common bile duct is visualized by 7 minutes. Tracer activity is present within the duodenal sweep by 7 minutes. There are no findings on this phase of the study compatible with acute cholecystitis or biliary ductal obstruction. On the post CCK images, there is prompt emptying of tracer activity from the gallbladder. The gallbladder ejection fraction is calculated to be 65%, a normal value. There are no findings on this portion of the study compatible with chronic or acalculous cholecystitis. IMPRESSION IMPRESSION: 1. Normal hepatobiliary study with CCK challenge. 2. No evidence for acute or chronic cholecystitis. Adiel Manuel MD NM ORDERABLES documented in this encounter Visit Diagnoses Diagnosis Abdominal pain, other specified site Nausea Nausea alone documented in this encounter Administered Medications Inactive Administered Medications - up to 3 most recent administrations Medication Order MAR Action Action Date Dose Rate Site sincalide (KINEVAC) injection 1.2 mcg 1.2 mcg (0.02 mcg/kg ? 58.5 kg), IV, ONE TIME ONLY, 1 dose, On Radha 01/27/11 at 0900, Routine Given 01/27/2011 10:11 AM CDT 1.2 mcg documented in this encounter Care Teams Retail Cosmetics Sales Beauty Advisor Relationship Specialty Start Date End Date Bailey Hastings MD PCP - General 10/29/08 12/09/15 documented as of this encounter
--- OUTSIDE RECORDS SUMMARY | 2024-08-27 07:02 | XMS_ITS | Encounter Summary ---
Author Organization [facility] Address [address] [place] [address] Care Team Providers Care Family Service Assistant Name Role Phone Bailey Hastings MD Primary Care Provider [phone] Reason for Visit * Reason Comments Well Child 10 year Encounter Details Date Type Department Care Team (Late st Contact Info) Description 08/22/2011 3:30 PM WOOD HEEL FLAP INSERTER Office Visit [facility] Pediatrics [place] [address] [facility] [address] [place] [address] Bailey Hastings MD [address] [facility] [address] [place] [address] Well child check (Primary Dx); Overweight Social History Tobacco Use Types Packs/Day Years [...] Reading Time Taken Comments Blood Pressure 114/66 08/22/2011 3:17 PM WOOD HEEL FLAP INSERTER Pulse 84 08/22/2011 3:17 PM WOOD HEEL FLAP INSERTER Temperature - - Respiratory Rate - - Oxygen Saturation - - Inhaled Oxygen Concentration - - Weight 67.1 kg (148 lb) 08/22/2011 3:17 PM WOOD HEEL FLAP INSERTER Height 148.6 cm (4' 10.5 ) 08/22/2011 3:17 PM CS T Body Mass Index 30.41 08/22/2011 3:17 PM WOOD HEEL FLAP INSERTER Body Mass Index Percentile 98.48% 08/22/2011 3:1 7 PM WOOD HEEL FLAP INSERTER Growth Chart: CDC (Girls, 2- 20 Years) documented in this encounter Progress Notes * Bailey Hastings MD - 08/22/2011 3:47 PM CST Subjective: History was provided by the mother. Laura Finley is a 10 y.o. female who presents for this well child visit. Current Issues: Current concerns include weight. Laura Finley is in 6th grade at [employer]. Current grades are good. Homework is good. Behavior in class and socially is good. Behavior at home is good. Sports/Activities: none Review of Nutrition: Balanced diet? yes; eats snacks and soda Drinks milk? yes. Eats 1-2 servings of fruits or vegetables per day. . Social Screening: Concerns regarding behavior with peers? no Secondhand smoke exposure? Yes, mom just made dad go outside when he smokes but grandparents smoke inside Helmet wear: no bike Seatbelt use: yes Regular dental visits? yes Objective: Filed Vitals: 08/22/11 1517 BP: 114/66 Pulse: 84 Height: 58.5 (148.6 cm) Weight: 67.132 kg (148 lb) Body mass index is 30.41 kg/(m^2). 98.60% of growth percentile based on BMI-for-age. 97.61% of growth percentile based on avyahq-wed-tdw. 38.36% of growth percentile based on [id number]-[id number]-[id number]. Growth parameters are noted and are not appropriate for age. General: active, alert, cooperative, no distress, social Gait: normal Skin: dry, normal - no rash and well perfused Head normal appearance, normal palate, normal cephalic, atraumatic and normal oropharynx Oral cavity: No perioral or gingival cyanosis or lesions. Tongue is normal in appearance. Eyes: normal corneal light reflex, pupils equal and reactive, red reflex normal bilaterally, sclerae white Ears: normal bilateral Nose nares patent Neck: Supple, no masses Lungs: clear to auscultation bilaterally, normal respiratory effort Heart: regular rate and rhythm, S1, S2 normal, no murmur, click, rub or gallop Abdomen: soft, non-tender. Bowel sounds normal. No masses, no organomegaly : normal female, juan 1 breasts, pubic hair Extremities: extremities normal, atraumatic, no cyanosis or edema, intact distal pulses, no edema, redness or tenderness in the calves or thighs Pulses Normal upper and lower extremity pulses Back back muscles are normal Neuro: alert, oriented, normal speech, no focal findings or movement disorder noted, neck supple without rigidity, cranial nerves II through XII intact, DTR's normal and symmetric, motor and sensory grossly normal bilaterally, normal muscle tone, no tremors, strength 5/5 Assessment: 1. Well child check (V20.2) HPV VACCINE 3 DOSE IM, HEPATITIS A VACCINE PED ADOL IM 2 DOSE, MENINGOCOCCAL CONJUG VACCINE IM 2. Overweight (278.02) Plan: 1. Anticipatory guidance: Adequate Sleep, Physical Activity, [place] Teeth, Family Meals and Smoke detector, carbon monoxide detector, car seat/booster, Bike helmet, Feeding/nutrition, smoke free environment, safety proofing house/poisons, strangers, school If BMI was 85 % or greater, discussed diet and exercise with patient and parent 2. Laboratory screening a. PPD: no family member working with homeless , prisoners or in health care, no family members with TB: b. Hyperlipidemia screening: :no family hx of HD less then 55, no family member with increased cholesterol, if weight continues to increase will do labs 3. Immunizations today: menactra, hpv hep a 4. Hearing screening: please see visit summary for results of screening 5. Vision: please see visit summary for results of screening 6. Dental issues or referral: To dentist once every 6 mo 7. Follow-up visit in 1 year. May return to office earlier if needed. HEEL FLAP INSERTER documented in this encounter Miscellaneous Notes * Patient Instructions - Lani Florentino - 08/22/2011 3:40 PM CST Preadolescent Development 9 to 12 years 08/22/2011 BP 114/66 Pulse 84 Ht 58.5 (148.6 cm) Wt 67.132 kg (148 lb) BMI 30.41 kg/m2 Body mass index is 30.41 kg/(m^2). 98.60% of growth percentile based on BMI-for-age. 97.61% of growth percentile based on bpuaho-uak-blm. 38.36% of growth percentile based on eyseeao-ftt-esj. PHYSICAL DEVELOPMENT Physical growth and development varies considerably among this age group. These children may: ?? Have an appetite that fluctuates sharply ?? Be energetic and high-spirited ?? Favor active, highly charged games and sports ?? Want to excel in sports and recreational skills ?? Develop a greater interest in clothing and appearance ?? Have a curiosity about drugs, alcohol and tobacco. Changes due to puberty can occur as early as age 8 in girls and age 9 in boys. Discuss any questions concerning these physical changes with your physician or nurse practitioner. EMOTIONAL DEVELOPMENT The preteen???s emotions fluctuate between the dependence of a child and the independence of an adult. These children may: ?? Become increasingly self-conscious ?? Experience sudden dramatic emotional changes associated with puberty. SOCIAL DEVELOPMENT These children focus a great deal on socialization. They: ?? Want to talk, dress and act like their friends ?? May sit and talk for long periods of time with friends ?? May give in to peer pressure more readily ?? Want parental assistance, but may resist offers of it ?? Are critical of parents ?? Are very aware of the opposite sex. NUTRITION A proper diet plays a very important role because of rapid growth during these years. The followingtips may help: ?? Fat intake should come from healthier foods such as cheese or yogurt. Try to limit junk food andfast food meals ?? Keep the household supply of junk food such as candy, cookies and potato chips to a minimum ?? Stock up on low-fat, healthy items for snacks such as fruit, raw vegetables, whole grain crackers and yogurt ?? Include raw or cooked fruits and/or vegetables at meals even when school age children act disinterested. Their tastes are constantly changing. These foods can supply your child with important vitamins and minerals. ?? Children at this age need 800-1200 mg of calcium per day. ?? For kids who won't drink milk, here's a few nondairy foods, rich in calcium Children at this age require about 1,200-1,500 mg of calcium. If your child does not like milk, here's a few non-dairy foods rich in calcium. [place] orange juice, calcium fortified 8oz = 300mg Omid [place] with calcium 4nd=256ng Aunt Jihan's Whole Grain Waffles, frozen 4=233ay Kudos Whole Grain Bar 2=556bz [place] Instant Breakfast bar 7=654fy SAFETY All children should wear seat belts at all times when in a vehicle. Accidents pose the greatest threat to the life and health of your child. More school age children of injuries than all other diseases combined. Yet, you can prevent most major injuries. It is best to keep all firearms [...] your child???s friends carry guns. SPORTS SAFETY Your child may play one or more sports during these years. Be sure your child uses the proper protective equipment for the sport. Make sure your child wears a helmet while riding a bicycle or while rollerblading. Participating inthese activities at dusk or after dark is very dangerous. SEX, DRUGS, ALCOHOL, SMOKING Discussions about sex, drugs, alcohol and smoking with your child are extremely important. Your child may experience pressure from friends to engage in these activities. When discussing them, try to understand your child???s feelings and viewpoints. Provide him or her with access to accurate and appropriate information. ADVICE FOR PARENTS ?? Establish fair, understandable rules about chores, watching television, outside activities, homework and bedtime ?? Communicate with your child ?? Show interest in your child???s daily activities ?? Show affection. This will contribute to your child???s self-esteem ?? Understand the importance of serving as a parental role model ?? Encourage age-appropriate independence and self-responsibility ?? Know your child???s whereabouts at all times. Dosage Chart Acetaminophen (Children's Tylenol??) Weight 's Suspension 160 mg per teaspoon (5mL) Children's [...] illnesses because of association with Sheryl's syndrome. HEEL FLAP INSERTER documented in this encounter Plan of Treatment Not on file documented as of this encounter Visit Diagnoses Diagnosis Well child check- Primary Routine infant or child health check Overweight(278.02) Overweight documented in this encounter Care Teams Family Service Assistant Relationship Specialty Start Date End Date Bailey Hastings MD PCP - General 10/29/08 12/09/15 documented as of this encounter
--- OUTSIDE RECORDS SUMMARY | 2024-08-27 07:02 | XMS_ITS | Encounter Summary ---
Author Organization [facility] Address [address] [place] [address] Care Team Providers Care Health Sciences Dean Name Role Phone Bailey Hastings MD Primary Care Provider Reason for Visit * Reason Comments Sore Throat Sorethroat-started y /Alot of nasal drainage/Headache-today No Fever Meds-tylenol Encounter Details Date Type Department Care Team (Late st Contact Info) Description 07/25/2011 11:15 AM ADMINISTRATIVE APPEALS TRIBUNAL MEMBER Office Visit [facility] Pediatrics [address] [phone] Bailey Hastings MD [address] [facility] [address] [place] [address] Acute pharyngitis (Primary Dx); URI (upper respiratory infection); Need for influenza vaccination Social History Tobacco Use Types Packs/Day Years [...] Sign Reading Time Taken Comments Blood Pressure 100/60 07/25/2011 11:11 AM ADMINISTRATIVE APPEALS TRIBUNAL MEMBER Pulse - - Temperature 36.9 ??C (98.5 ??F) 07/25/2011 11:[address] Respiratory Rate - - Oxygen Saturation - - Inhaled Oxygen Concentration - - Weight 66.2 kg (146 lb) 07/25/2011 11:11 AM ADMINISTRATIVE APPEALS TRIBUNAL MEMBER Height 152.4 cm (5') 07/25/2011 11:11 AM ADMINISTRATIVE APPEALS TRIBUNAL MEMBER Body Mass Index 28.51 07/25/2011 11:11 AM ADMINISTRATIVE APPEALS TRIBUNAL MEMBER Body Mass Index Percentile 97.51% 07/25/2011 11: 11 AM ADMINISTRATIVE APPEALS TRIBUNAL MEMBER Growth Chart: [facility] (Girls, 2- 20 Years) documented in this encounter Progress Notes * Bailey Hastings MD - 07/25/2011 11:29 AM CST Cough and congestion for two days, sore throat last night. No fever. Sister sick with a cold BP 100/60 Temp(Src) 98.5 ??F (36.9 ??C) (Tympanic) Ht 60 (152.4 cm) Wt 66.225 kg (146 lb) BMI 28.51 kg/m2 Alert, No acute distress, non-toxic appearing Ears-clear tm's bilaterally Throat-clear, no tonsillar swelling, exudate Nose-no rhinorhea Chest-clear to auscultation bilaterally Heart-regular rate and rhythm , no murmur Skin- no rash 1. Acute pharyngitis POC RAPID STREP A 2. URI (upper respiratory infection) 3. Need for influenza vaccination INFLUENZA VACCINE SPLIT 3+YRS IM Gave samples of dimetapp cold and allergy-3 tsp q6 hours prn NISTRATIVE APPEALS TRIBUNAL MEMBER * Kiah Bonilla - 07/25/2011 11:29 AM CST Results for orders placed in visit on 07/25/11 POC RAPID STREP A Component Value Range RAPID STREP Negative NEG NISTRATIVE APPEALS TRIBUNAL MEMBER documented in this encounter Plan of Treatment Not on file documented as of this encounter Procedures Procedure Name Priority Date/Time Associated Diagnosis Comments POC RAPID STREP A ANTIGEN Routine 07/25/2011 Acute pharyngitis documented in this encounter Results * POC RAPID STREP A (07/25/2011) RAPID STREP Negative [facility] Specimen from throat (specimen) Bailey Hastings MD POINT OF CARE TESTI [facility] documented in this encounter Visit Diagnoses Diagnosis Acute pharyngitis- Primary URI (upper respiratory infection) Acute upper respiratory infections of unspecified site Need for influenza vaccination Need for prophylactic vaccination and inoculation against influenza documented in this encounter Care Teams Health Sciences Dean Relationship Specialty Start Date End Date Bailey Hastings MD PCP - General 10/29/08 12/09/15 documented as of this encounter
--- OUTSIDE RECORDS SUMMARY | 2024-08-27 07:02 | XMS_ITS | Encounter Summary ---
Author Organization [facility] Address [address] [place] [address] Care Team Providers Care Accountant Assistant Name Role Phone Bailey Hastings MD Primary Care Provider Reason for Visit * Outpatient Services (Routine) - Closed Specialty Diagnoses / Procedures Referred By Contac t Referred To Contact Ultrasound Diagnoses Abdominal pain, other specified site Procedures US GALLBLADDER Grace Velázquez NP [address] [address] Referral ID Status Reason Start Date Expiration Date Visits Re quested Visits Authorized [id number] Closed 01/13/2011 07/12/2011 1 1 Encounter Details Date Type Department Care Team (Late st Contact Info) Description 01/14/2011 8:12 AM CDT - 01/14/2011 11:59 PM CDT Hospital Encounter [facility] Ultrasound [address] [place] [address] Grace Velázquez NP [address] [address] Bailey Hastings MD [address] [address] Discharge Disposition: Home or Self Care Social History Tobacco Use Types Packs/Day Years Used Date Smoking Tobacco: Never Assessed Sex and Gender Information Value Date Recorded Sex Assigned at Not on file Gender Identity Not on file Sexual Orientation Not on file documented as of this encounter Medications at Time of Discharge Medication Sig Dispensed Refills Start Date End Date amoxicillin (AMOXIL) 500 mg Oral Tab Take 1 Tab by mouth every 12 hours for 10 days. 20 Tab 0 01/06/2011 01/16/2011 montelukast (SINGULAIR) 10 mg Oral tablet Take [...] Pabon's pouch. IMPRESSION IMPRESSION: Negative exam Grace Velázquez MARKETING AND DEVELOPMENT COORDINATOR US ORDERABLES documented in this encounter Visit Diagnoses Not on filedocumented in this encounter Care Teams Accountant Assistant Relationship Specialty Start Date End Date Bailey Hastings MD PCP - General 10/29/08 12/09/15 documented as of this encounter
--- OUTSIDE RECORDS SUMMARY | 2024-08-27 07:02 | XMS_ITS | Encounter Summary ---
Author Organization [employer] Address [address] [place] [address] Care Team Providers Care Structural Biologist Name Role Phone Bailey Hastings MD Primary Care Provider [phone] Reason for Visit * Reason Comments Nasal Injury fell face first onto couch yest Encounter Details Date Type Department Care Team (Late st Contact Info) Description 07/12/2010 1:15 PM CDT Office Visit [facility] [address] [place] [address] Bailey Hastings MD [address] [place] [address] Fall; Face pain Social History Tobacco Use Types Packs/Day Years Used Date Smoking Tobacco: Never Assessed Sex and Gender Information Value Date Recorded Sex Assigned at Not on file Gender Identity Not on file Sexual Orientation Not on file documented as of this encounter Last Filed Vital Signs Vital Sign Reading Time Taken Comments Blood Pressure - - Pulse - - Temperature 36.2 ??C (97.1 ??F) 07/12/2010 1:15 PM CD T Respiratory Rate - - Oxygen Saturation - - Inhaled Oxygen Concentration - - Weight 54 kg (119 lb) 07/12/2010 1:15 PM CDT Height - - Body Mass Index - - documented in this encounter Progress Notes * Bailey Hastings MD - 07/12/2010 1:30 PM CDT Tripped and hit face on floor. Hard to breath out of nose. Hurts on bridge of nose. +intermittent nosebleed since last night Alert, no distress ?raccoon eyes forming vs. Eye make up under eyes from halloween Minimal nasal bridge swelling, but tender Boggy turbinates bilaterally, septum midline, dry blood clot left side Encounter Diagnoses 1. Fall (E888.9C) XR NASAL BONES 2. Face pain (784.0AH) XR NASAL BONES documented in this encounter Plan of Treatment Not on file documented as of this encounter Results * XR NASAL BONES (07/12/2010 2:18 PM CDT) Anatomical Region Laterality Modality Head Computed Radiogr aphy 07/12/2010 2:15 PM CDT Impressions 07/12/2010 4:16 PM CDT IMPRESSION: Negative exam Narrative 07/12/2010 4:16 PM CDT EXAM: ?? XR NASAL BONES ?Jul 12, 2010 4:04:07 PM HISTORY: Injury, pain FINDINGS: ?? There is no evidence of fracture. The paranasal sinuses are clear. Procedure Note Oralia Villalba MD - 07/12/2010 EXAM: XR NASAL BONES Jul 12, 2010 4:04:07 PM HISTORY: Injury, pain FINDINGS: There is no evidence of fracture. The paranasal sinuses are clear. IMPRESSION IMPRESSION: Negative exam Bailey Hastings MD DIAGNOSTIC IMAGING ORDERABLES documented in this encounter Visit Diagnoses Diagnosis Fall Unspecified fall Face pain Headache Fall Unspecified fall Face pain Headache documented in this encounter Care Teams Structural Biologist Relationship Specialty Start Date End Date Bailey Hastings MD PCP - General 10/29/08 12/09/15 documented as of this encounter
--- OUTSIDE RECORDS SUMMARY | 2024-08-27 07:02 | XMS_ITS | Encounter Summary ---
Author Organization [facility] Address [address] [place] [address] Care Team Providers Care Golf Ball Marker Name Role Phone Bailey Hastings MD Primary Care Provider [phone] Reason for Visit * Reason Onset Date Comments Medication Refill 04/05/2011 Encounter Details Date Type Department Care Team (Late st Contact Info) Description 04/05/2011 Telephone [facility] [place] [address] [place] [address] [address] [place] [address] Bailey Hastings MD [address] [facility] [address] [place] [address] Medication Refill Social History Tobacco [...] encounter Miscellaneous Notes * Telephone Encounter - Christina Carlson - 04/05/2011 11:48 AM CDT Mom called Rx that was written yesterday was not E-prescribed. It was No Print and it needed to be sent to pharm. Rx is now sent to pharm. documented in this encounter Plan of Treatment Not on file documented as of this encounter Visit Diagnoses Diagnosis Cough- Primary documented in this encounter Care Teams Golf Ball Marker Relationship Specialty Start Date End Date Bailey Hastings MD PCP - General 2/18/09 3/30/16 documented as of this encounter
--- OUTSIDE RECORDS SUMMARY | 2024-08-27 07:02 | XMS_ITS | Encounter Summary ---
Author Organization [facility] Address [address] [place] [address] Care Team Providers Care Website Designer Name Role Phone Bailey Hastings MD Primary Care Provider Encounter Details Date Type Department Care Team (Latest Contact Info) Description 10/22/2009 9:19 PM SENIOR CLIENT ADVISOR - 10/22/2009 11:59 PM SENIOR CLIENT ADVISOR Hospital Encounter [facility] Support Services [facility] [employer] [address] [place] [address] Zohra Uribe, NUSRAT NO ADDRESS ON FILE Discharge Disposition: Home or Self Care Social History Tobacco Use Types Packs/Day Years Used Date Smoking Tobacco: Never Assessed Sex and Gender Information Value Date Recorded Sex Assigned at Not on file Gender Identity Not on file Sexual Orientation Not on file documented as of this encounter Medications at Time of Discharge Medication Sig Dispensed Refills Start Date End Date cetirizine (CHILDREN'S ZYRTEC ALLERGY) 1 mg/mL Oral Soln Take 10 mL by mouth daily. 120 mL 0 10/08/2009 11/09/2009 PRILOSEC POIndications:Abdominal pain Take by mouth. 02/23/2011 documented as of this encounter Plan of Treatment Not on file documented as of this encounter Procedures Procedure Name Priority Date/Time Associated Diagnosis Comments STREPTOCOCCUS GROUP A CULTURE Routine 10/22/2009 9:24 AM SENIOR CLIENT ADVISOR Acute Pharyngitis documented in this encounter Results * STREPTOCOCCUS GROUP A CULTURE (10/22/2009 9:24 AM SENIOR CLIENT ADVISOR) PRELIMINARY REPORT Pending [facility] FINAL REPORT No Group A, C, or G beta Streptococcus isolated. [facility] SPECIMEN FROM THROAT / Unknown 10/22/2009 9:24 AM SENIOR CLIENT ADVISOR 10/22/2009 10:27 PM SENIOR CLIENT ADVISOR Zohra SILVERIO MICROBIOLOGY - G ENERAL ORDERABLES Performing Organization Address City/State/[facility] Co de Phone Number [facility] CLIA# [id number] [address] [place] [place] [address] documented in this encounter Visit Diagnoses Diagnosis Acute pharyngitis documented in this encounter Care Teams Website Designer Relationship Specialty Start Date End Date Bailey Hastings MD PCP - General 10/29/08 12/09/15 documented as of this encounter
--- OUTSIDE RECORDS SUMMARY | 2024-08-27 07:02 | XMS_ITS | Encounter Summary ---
Author Organization [facility] Address [address] [place] [address] Care Team Providers Care Emergency Vehicle Technician Name Role Phone Bailey Hastings MD Primary Care Provider Encounter Details Date Type Department Care Team (Late st Contact Info) Description 02/12/2010 Abstract [facility] [address] [address] Thaddeus Reynolds MD NO ADDRESS ON FILE Social History Tobacco [...] on filedocumented in this encounter Care Teams Emergency Vehicle Technician Relationship Specialty Start Date End Date Bailey Hastings MD PCP - General 10/29/08 3 documented as of this encounter
--- OUTSIDE RECORDS SUMMARY | 2024-08-27 07:02 | XMS_ITS | Encounter Summary ---
Author Organization [employer] Address [address] [place] [address] Care Team Providers Care Technical Director Name Role Phone Bailey Hastings MD Primary Care Provider Reason for Visit * Reason Comments Sore Throat started last evening /headache No Fever Meds-See medication list Encounter Details Date Type Department Care Team (Late st Contact Info) Description 10/21/2010 8:45 AM J2EE ENGINEER Office Visit [facility] [address] [place] [address] Zohra Uribe CPNP NO ADDRESS ON FILE Acute pharyngitis (Primary Dx) Social History Tobacco Use Types Packs/Day Years Used Date Smoking Tobacco: Never Assessed Sex and Gender Information Value Date Recorded Sex Assigned at Not on file Gender Identity Not on file Sexual Orientation Not on file documented as of this encounter Last Filed Vital Signs Vital Sign Reading Time Taken Comments Blood Pressure 104/66 10/21/2010 8:36 AM J2EE ENGINEER Pulse - - Temperature 36.4 ??C (97.6 ??F) 10/21/2010 8:36 AM CS T Respiratory Rate - - Oxygen Saturation - - Inhaled Oxygen Concentration - - Weight 54.9 kg (121 lb) 10/21/2010 8:36 AM J2EE ENGINEER Height 143.5 cm (4' 8.5 ) 10/21/2010 8:36 AM J2EE ENGINEER Body Mass Index 26.65 10/21/2010 8:36 AM J2EE ENGINEER Body Mass Index Percentile 96.93% 10/21/2010 8:3 6 AM J2EE ENGINEER Growth Chart: [facility] (Girls, 2- 20 Years) documented in this encounter Progress Notes * Zohra Uribe NP - 10/21/2010 8:49 AM CST SUBJECT: Chief Complaint Patient presents with ??? Sore Throat started last evening/headache No Fever Meds-See medication list Pt. Presents with c/o sore throat since late last noc. No fever. Scant nasal drainage, symptoms present X 1 days. Woke up intermittently last noc. Drinking well, Appetite sl decreased. Worst complaint today sore throat. OBJECTIVE: She appears well, vital signs are as noted. Ears are normal. Throat and pharynx normal. Neck supple. No adenopathy in the neck. Nose is minimally congested. Mucus membrane pink. The chest is clear, without wheezes or rales. Skin exam shows no rash. Child appears well hydrated and appropriate. ASSESSMENT: Encounter Diagnoses 1. Acute pharyngitis (462) POC RAPID STREP A, STREPTOCOCCUS GROUP A CULTURE PLAN: Call or return to Clinic if no improvement. Counseled on normal progression and symptomatic treatment. Mom comfortable with plan. J2EE ENGINEER * Kiah Bonilla - 10/21/2010 8:48 AM CST Results for orders placed in visit on 10/21/10 POC RAPID STREP A Component Value Range ? ? RAPID STREP Negative > NEG J2EE ENGINEER documented in this encounter Plan of Treatment Not on file documented as of this encounter Procedures Procedure Name Priority Date/Time Associated Diagnosis Comments POC RAPID STREP A ANTIGEN Routine 10/21/2010 Acute pharyngitis documented in this encounter Results * (ABNORMAL) STREPTOCOCCUS GROUP A CULTURE (10/21/2010 4:21 PM J2EE ENGINEER) FINAL MICRO REPORT Moderate growth Streptococcus Group C(A) [facility] Specimen of unknown material (specimen) SPECIMEN FROM THROAT / Unknown 10/21/2010 4:21 PM J2EE ENGINEER 10/21/2010 4:50 PM J2EE ENGINEER Comment:THROAT Zohra SILVERIO MICROBIOLOGY - G ENERAL ORDERABLES [facility] CLIA# [id number] [address] [place] [address] * POC RAPID STREP A (10/21/2010) RAPID STREP Negative [facility] Specimen from throat (specimen) Zohra Uribe CPNP POINT OF CARE TE [facility] documented in this encounter Visit Diagnoses Diagnosis Acute pharyngitis- Primary documented in this encounter Care Teams Technical Director Relationship Specialty Start Date End Date Bailey Hastings MD PCP - General 10/29/08 12/09/15 documented as of this encounter
--- OUTSIDE RECORDS SUMMARY | 2024-08-27 07:02 | XMS_ITS | Encounter Summary ---
Author Organization [employer] Address [address] [place] [address] Care Team Providers Care Wind Operations Manager Name Role Phone Bailey Hastings MD Primary Care Provider Encounter Details Date Type Department Care Team (Late st Contact Info) Description 06/16/2010 2:30 PM CDT Immunization [facility] [address] [place] [address] Hrnped, Flunurse Need for prophylactic vaccination and inoculation against influenza (Primary Dx) Social History Tobacco Use Types Packs/Day Years Used Date Smoking Tobacco: Never Assessed Sex and Gender Information Value Date Recorded Sex Assigned at Not on file Gender Identity Not on file Sexual Orientation Not on file documented as of this encounter Plan of Treatment Not on file documented as of this encounter Visit Diagnoses Diagnosis Need for prophylactic vaccination and inoculation against influenza- Primary documented in this encounter Care Teams Wind Operations Manager Relationship Specialty Start Date End Date Bailey Hastings MD PCP - General 10/29/08 12/09/15 documented as of this encounter
--- OUTSIDE RECORDS SUMMARY | 2024-08-27 07:02 | XMS_ITS | Encounter Summary ---
Author Organization [employer] Address [address] [place] [address] Care Team Providers Care Senior Cytogenetics Laboratory Director Name Role Phone Bailey Hastings MD Primary Care Provider Encounter Details Date Type Department Care Team (Latest Contact Info) Description 10/21/2010 4:15 PM GLUTEN SETTLING TENDER - 10/21/2010 11:59 PM GLUTEN SETTLING TENDER Hospital Encounter [facility] Support Services [facility] [employer] [address] [place] [address] Zohra Uribe, NUSRAT NO ADDRESS ON FILE [...] Sig Dispensed Refills Start Date End Date montelukast (SINGULAIR) 10 mg Oral tablet Take 10 mg by mouth daily at bedtime. 09/16/2011 montelukast (SINGULAIR) 10 mg Oral tabletIndications:Coug h Take 1 Tab by mouth daily for 30 days. 30 Tab 4 08/10/2010 09/16/2011 albuterol (PROVENTIL,VENTOLIN) 90 mcg/Actuation Inhalation HFAAIndications:Cough Take 2 Puffs by inhalation every 6 hours as needed for Other (See Comment) (cough). 1 Inhaler 1 08/10/2010 01/06/2011 PRILOSEC POIndications:Abdomina l pain Take by mouth. 02/23/2011 documented as of this encounter Plan of Treatment Not on file documented as of this encounter Procedures Procedure Name Priority Date/Time Associated Diagnosis Comments STREPTOCOCCUS GROUP A CULTURE Routine 10/21/2010 4:21 PM GLUTEN SETTLING TENDER Acute pharyngitis documented in this encounter Results * (ABNORMAL) STREPTOCOCCUS GROUP A CULTURE (10/21/2010 4:21 PM GLUTEN SETTLING TENDER) FINAL MICRO REPORT Moderate growth Streptococcus Group C(A) [facility] Specimen of unknown material (specimen) SPECIMEN FROM THROAT / Unknown 10/21/2010 4:21 PM GLUTEN SETTLING TENDER 10/21/2010 4:50 PM GLUTEN SETTLING TENDER Comment:THROAT Zohra SILVERIO MICROBIOLOGY - G ENERAL ORDERABLES [facility] CLIA# [id number] [address] [place] [address] documented in this encounter Visit Diagnoses Diagnosis Acute pharyngitis documented in this encounter Care Teams Senior Cytogenetics Laboratory Director Relationship Specialty Start Date End Date Bailey Hastings MD PCP - General 10/29/08 3 documented as of this encounter
--- OUTSIDE RECORDS SUMMARY | 2024-08-27 07:02 | XMS_ITS | Encounter Summary ---
Author Organization [employer] Address [address] [place] [address] Care Team Providers Care Headliner Installer Name Role Phone Bailey Hastings MD Primary Care Provider [phone] Reason for Visit * Reason Onset Date Comments Thrush 11/17/2009 Encounter Details Date Type Department Care Team (Late st Contact Info) Description 11/17/2009 Telephone [facility] [address] [place] [address] Bailey Hastings MD [address] [facility] [facility] [address] [place] [address] Thrush Social History Tobacco Use Types Packs/Day Years Used Date Smoking Tobacco: Never Assessed Sex and Gender Information Value Date Recorded Sex Assigned at Not on file Gender Identity Not on file Sexual Orientation Not on file documented as of this encounter Miscellaneous Notes * Telephone Encounter - Wilma Urbano - 11/17/2009 8:38 AM CST MOM NOTIFIED ICAL AIDE * Telephone Encounter - Bailey Hastings MD - 11/17/2009 8:24 AM CLERICAL AIDE Please ask her to swish mouth out with water after using inhaler ICAL AIDE * Telephone Encounter - Wilma Urbano - 11/17/2009 8:21 AM CST MOM STATES THAT PT WAS IN ABOUT A WEEK AGO AND STARTED ON AN INHALER. MOM STATES THAT THE PT HAS THRUSH AND WOULD LIKE A RX CALLED OUT. ICAL AIDE documented in this encounter Plan of Treatment Not on file documented as of this encounter Visit Diagnoses Diagnosis Thrush- Primary Candidiasis of mouth documented in this encounter Care Teams Headliner Installer Relationship Specialty Start Date End Date Bailey Hastings MD PCP - General 10/29/08 12/09/15 documented as of this encounter
--- OUTSIDE RECORDS SUMMARY | 2024-08-27 07:02 | XMS_ITS | Encounter Summary ---
Author Organization [email or web address] Address [address] [place] [address] Care Team Providers Care Wet Roaster Name Role Phone Bailey Hastings MD Primary Care Provider Reason for Visit * Reason Onset Date Comments Erroneous encounter-disregard 05/08/2010 Encounter Details Date Type Department Care Team ([facility] st Contact Info) Description 05/08/2010 Telephone [facility] [address] [facility] [address] [place] [address] Grace Velázquez, SUPERVISOR CAR INSTALLATIONS [address] [facility] [address] [place] [address] Erroneous encounter-disregard Social History Tobacco [...] filedocumented in this encounter Care Teams Wet Roaster Relationship Specialty Start Date End Date Bailey Hastings MD PCP - General 10/29/08 12/09/15 documented as of this encounter
--- OUTSIDE RECORDS SUMMARY | 2024-08-27 07:02 | XMS_ITS | Encounter Summary ---
Author Organization [facility] Address [address] [place] [address] Care Team Providers Care Welt Butter Hand Name Role Phone Bailey Hastings MD Primary Care Provider [phone] Reason for Visit * Reason Comments Abdominal Pain pt with right lower quadrant pain starting last night, seen at [facility] with negative appy work up and no UTI per mother. pt to be scheduled for US of GB but pain increasing radiating to upper right quadrant and back. pt limping and guarding into triage. Encounter Details Date Type Department Care Team (Late st Contact Info) Description 01/13/2011 6:30 PM CDT - 01/13/2011 10:28 PM CDT Emergency [facility] Emergency Department [address] [place] [address] George Rousseau MD [address] [place] [address] Abdominal pain Discharge Disposition: Home or Self Care Social History Tobacco Use Types Packs/Day Years Used Date Smoking Tobacco: Never Assessed Sex and Gender Information Value Date Recorded Sex Assigned at Not on file Gender Identity Not on file Sexual Orientation Not on file documented as of this encounter Last Filed Vital Signs Vital Sign Reading Time Taken Comments Blood Pressure 116/79 01/13/2011 10:12 PM CDT Pulse 72 01/13/2011 10:12 PM CDT Temperature 36.9 ??C (98.4 ??F) 01/13/2011 5:31 PM CD T Respiratory Rate 20 01/13/2011 10:1 2 PM CDT Oxygen Saturation 98% 01/13/2011 10: 12 PM CDT Inhaled Oxygen Concentration - - Weight 59.7 kg (131 lb 11.2 oz) 01/13/2011 5:31 PM CDT Height - - Body Mass Index 26.6 01/13/2011 2:47 PM CDT Body Mass Index Percentile 96.68% 01/13/2011 5:3 1 PM CDT Growth Chart: [facility] (Girls, 2- 20 Years) documented in this encounter Discharge Instructions * Discharge Instructions* George Rousseau MD - 01/13/2011 10:19 PM CDT Pepcid 20 mg once a day. May obtain over the counter Maalox 10 cc twice a day for 3 days * Attachments The following attachments cannot be sent through Care Everywhere. * ABDOMINAL PAIN: AFTER YOUR CHILD'S VISIT ([place]) documented in this encounter Medications at Time [...] mouth. 02/23/2011 documented as of this encounter ED Notes * [facility], [facility] - 01/14/2011 10:18 AM CDT * Chayito Priest RN - 01/13/2011 10:[address] Rousseau at bedside for discharge. Pt ambulatory out with family no distress noted. * Chayito Priest RN - 01/13/2011 10:12 PM CDT Pt resting on cart reports decrease in pain after medications administered. VS as charted. Parents and pt updated on plan and delays * Chayito Priest RN - 01/13/2011 9:15 PM CDT Pt c/o increased abd pain with uncomfortable feeling. Dr. Rousseau updated on pt status. See meds given. * Chayito Priest RN - 01/13/2011 8:34 PM CDT Pt resting on cart reports a decrease in pain since medication given. IVF continues to run with ease on pump. See VS * González Torre CCLS - 01/13/2011 8:31 PM CDT Certified Relay Checker (CCLS), González Torre, met the patient and family and introduced Child Life Services. The patient appeared to be calm and age- appropriate. CCLS prepared the patient for IV start procedure using age- appropriate medical play. The patient was calm during the conversation and verbalized understanding, stating that she had an IV last night. Child Life interventions of preparation, support, distraction, and normalization of the environment were explained and offered to the patient and family. Instructions for contacting Child Life were given. Child Life will be available to support the patient and family during stay to promote positive coping during hospitalization. For questions contact MELINDA Rice, CCLS * George Rousseau MD - 01/13/2011 7:17 PM CDT HISTORY OF PRESENT ILLNESS Laura Finley, a 10 y.o. female presents to the ED with a Chief Complaint of Abdominal Pain Patient is a 10 y.o. female presenting with abdominal pain. The history is provided by the mother, the father and the patient. Abdominal Pain The current episode started yesterday. The pain is present in the RUQ and RLQ. The pain radiates tothe back. The problem occurs constantly. The quality of the pain is described as aching and burning. The pain is moderate. Nothing relieves the symptoms. The symptoms are aggravated by eating and an upright position. Associated symptoms include nausea and vomiting (x 2-3 times ). Pertinent negatives include no diarrhea, no fever, no congestion, no cough, no constipation, no dysuria and no rash. There were no sick contacts. Recently, medical care has been given by the PCP and at another facility([facility]). Services received include tests performed (CT, Toradol). REVIEW OF SYSTEMS Review of Systems Constitutional: Negative for fever and malaise/fatigue. HENT: Negative for congestion. Eyes: Negative for redness. Respiratory: Negative for cough, sputum production, shortness of breath and wheezing. Gastrointestinal: Positive for nausea, vomiting (x 2-3 times ) and abdominal pain. Negative for diarrhea, constipation, blood in stool and melena. Some funny taste in mouth when lying flat Genitourinary: Negative for dysuria. Musculoskeletal: Negative. Skin: Negative for rash. PAST MEDICAL HISTORY REVIEWED Past Medical History Diagnosis Date ??? Diabetes ??? Asthma ??? Bowel disease No past surgical history on file. FH: gallbladder problems History Social History Main Topics ??? Smoking status: Not on file ??? Smokeless tobacco: Not on file ??? Alcohol Use: Not on file ??? Drug Use: Not on file ??? Sexually Active: Not on file ALLERGIES Apple juice HOME MEDICATIONS Patient's Home Medications New Prescriptions for this Encounter Current Home Medications AMOXICILLIN (AMOXIL) 500 MG ORAL TAB Take 1 Tab by mouth every 12 hours for 10 days. MONTELUKAST (SINGULAIR) 10 MG ORAL TABLET Take 10 mg by mouth daily at bedtime. PRILOSEC PO Take by mouth. Medications Modified during this Encounter Medications Discontinued during this Encounter PHYSICAL EXAM Initial Vitals BP 01/13/11 1731 121/66 mmHg Pulse 01/13/11 1731 75 Resp 01/13/11 1731 18 Temp 01/13/11 1731 98.4 ??F (36.9 ??C) Temp src 01/13/11 1731 Oral SpO2 01/13/11 1731 99 % Physical Exam Nursing note and vitals reviewed. Constitutional: She is active. No distress. HENT: Head: Atraumatic. Right Ear: Tympanic membrane normal. Left Ear: Tympanic membrane normal. Nose: Nose normal. No nasal discharge. Mouth/Throat: Mucous membranes are moist. No dental caries. No tonsillar exudate. Oropharynx is clear. Pharynx is normal. Eyes: Conjunctivae and extraocular motions are normal. Pupils are equal, round, and reactive to light. Neck: Normal range of motion. Neck supple. Cardiovascular: Normal rate, regular rhythm, S1 normal and S2 normal. No murmur heard. Pulmonary/Chest: Effort normal and breath sounds normal. There is normal air entry. No respiratory distress. Air movement is not decreased. She exhibits no retraction. Abdominal: Soft. Bowel sounds are normal. She exhibits no distension and no mass. Tenderness (RUQ tenderness and some epigastric tenderness) is present. She has no rebound and no guarding. No hernia. Neg obturator, neg psoas, neg heel tap Musculoskeletal: Normal range of motion. Neurological: She is alert. Skin: Skin is warm. Capillary refill takes less than 3 seconds. No petechiae, no purpura and no rash noted. No pallor. MDM Coding Reviewed: nursing note and vitals Previous procedures: talked with [facility] ED: motion artifact but normal appendix and small ovarian follicles. Interpretation: labs and x-ray DIAGNOSTICS LAB: Results for orders placed during the hospital encounter of 01/13/11 (from the past 24 hour(s)) URINALYSIS WITH REFLEX CULTURE Component Value Range ??? URINE CULTURE ORDER Culture ordered URINALYSIS WITH MICROSCOPIC Component Value Range ??? COLOR UA Pale Yellow ??? CLARITY UA Clear Clear ??? SPECIFIC GRAVITY UA 1.013 1.001-1.035 ??? PH UA 5.0 5.0-8.0 ??? LEUKOCYTE ESTERASE UA Trace (*) Negative ??? NITRITE UA Negative Negative ??? PROTEIN UA Negative Negative ??? GLUCOSE UA Negative Negative ??? KETONES UA Negative Negative ? ? UROBILINOGEN UA <1 <=1 (mg/dL) ??? BILIRUBIN UA Negative Negative ??? BLOOD UA Negative Negative ??? WBC UA 1 0-5 (/HPF) ? ? RBC UA <1 0-4 (/HPF) ??? EPITHELIAL CELLS, URINE 0-2 (/HPF) CBC WITH DIFFERENTIAL, PEDIATRIC Component Value Range ? ? NRBC 0 <=0 (/100 WBC) ??? WBC 15.7 (*) 4.5-13.5 (K/uL) ??? RBC 4.58 4.00-5.20 (M/uL) ??? HEMOGLOBIN 11.8 11.5-15.5 (g/dL) ??? HEMATOCRIT 36.2 35.0-45.0 (%) ??? MCV 79.0 77.0-95.0 (fL) ??? MCH 25.8 24.0-30.0 (pg) ??? MCHC 32.6 30.0-36.0 (%) ??? PLATELETS 367 (*) 140-350 (K/uL) ??? MPV 11.4 9.3-12.4 (fL) ??? RDW 14.1 11.5-14.5 (%) ??? RDW-STDEV 40.2 37.1-48.7 (fL) ??? NEUTROPHILS, SEG 59 36-74 (%) ??? LYMPHOCYTES 36 18-53 (%) ??? MONOCYTES 3 2-13 (%) ??? EOSINOPHILS 2 2-12 (%) ??? BASOPHILS 0 0-3 (%) ??? PLATELET EST. Consistent w/ count Normal ??? NEUTROPHIL ABSOLUTE 9.26 (K/uL) ??? LYMPHOCYTE ABSOLUTE 5.65 (K/uL) ??? MONOCYTE ABSOLUTE 0.47 (K/uL) ??? EOSINOPHIL ABSOLUTE 0.31 (K/uL) ??? BASOPHILS ABSOLUTE 0.00 (K/uL) ??? ANISOCYTOSIS Slight ??? REVIEWED ON SMEAR Plt reviewed COMPREHENSIVE METABOLIC PANEL Component Value Range ??? SODIUM 141 135-145 (mmol/L) ??? POTASSIUM 4.4 3.5-4.9 (mmol/L) ??? CHLORIDE 106 96-108 (mmol/L) ??? CO2 23 22-30 (mmol/L) ??? CALCIUM 10.0 8.8-10.8 (mg/dL) ??? BUN 8 6-20 (mg/dL) ??? CREATININE 0.53 0.44-0.68 (mg/dL) ??? GLUCOSE 78 60-110 (mg/dL) ??? TOTAL PROTEIN 7.5 6.3-8.6 (g/dL) ??? ALBUMIN 4.3 3.8-5.4 (g/dL) ??? BILIRUBIN TOTAL 0.2 0.2-1.0 (mg/dL) ??? ALKALINE PHOSPHATASE 264 35-300 (U/L) ??? AST 29 12-32 (U/L) ??? ALT 33 (*) 0-31 (U/L) ? ? GFR, N/A:MDRD equation validated for pts.>18 yrs. >=60 (mL/min/1.7 sq meter) ? ? GFR N/A:MDRD equation validated for pts.>18 yrs. >=60 (mL/min/1.7 sq meter) AMYLASE Component Value Range ??? AMYLASE 31 28-100 (U/L) LIPASE Component Value Range ??? LIPASE 14 13-60 (U/L) C-REACTIVE PROTEIN Component Value Range ??? CRP 0.8 0.0-0.8 (mg/dL) SEDIMENTATION RATE Component Value Range ??? ESR (SEDIMENTATION RATE) 27 (*) 0-20 (mm/hr) GGT Component Value Range ??? GGT 12 4-22 (U/L) RADIOLOGY: XR ABDOMEN W DECUB AND OR ERECT (Results Pending) EKG: PROCEDURES 10:24 PM Much improved after GI cocktail and IV Pepcid. NAD and doing well. MEDICAL DECISION MAKING AND PLAN OF CARE Last vitals BP 116/79 Pulse 72 Temp(Src) 98.4 ??F (36.9 ??C) (Oral) Resp 20 Wt 59.739 kg SpO2 98% CLINICAL IMPRESSION Encounter Diagnoses Code Name Primary? 789.00AP Abdominal pain Consider GERD in the differential. Will have gallbladder ultrasound in the am for further workup.. Pepcid OTC daily and Maalox prn. Advised to return if worsens. See PMD in the am. Advised to return if worsens. CASE DISCUSSED With Dr Moya PATIENT COUNSELING Diagnostics reviewed and questions answered. Diagnosis, treatment options and plan of care discussed with understanding verbalized. DISPOSITION, EDUCATION AND MEDICATION RECONCILIATION Medications reconciled. See after visit summary for patient education on discharged patients. * Stephanie Javed RN - 01/13/2011 6:33 PM CDT Pt presents to ED with complaints of abd pain. Pt started yesterday with abd pain and taken to [facility] last night. Pt was taken to PCP today and has a scheduled ultrasound of the gallbladder tomorrow at 0800. PCP told pt if pain worsened to come here. Father states pt does have an elevated WBC. Mom denies running any fevers. Pt complains of RUQ that radiates to the LUQ. Pt complaining of R sided back pain in the flank area. Pt states it feels like someone is stabbing her. Pt parents state she has not been eating very well. Pt states last BM was earlier today and running. Pt states it was normal in color. Pt is tender on palpation to RUQ and LUQ. Bowel sounds are decreased in RUQ and LUQ. Pt is guarding abd and in pain. Pt rates pain at a 9 on 0-10 scale. Pt is resting in bed with Mom and Dad at bedside. Pt has been nauseated and vomiting. documented in this encounter Plan of Treatment Not on file documented as of this encounter Procedures Procedure Name Priority Date/Time Associated Diagnosis Comments CBC WITH DIFFERENTIAL, PEDIATRIC Stat 01/13/2011 7:53 PM CDT SEDIMENTATION RATE Stat 01/13/2011 7: 53 PM CDT C-REACTIVE PROTEIN Stat 01/13/2011 7: 53 PM CDT LIPASE Stat 01/13/2011 7:53 PM CDT GGT Stat 01/13/2011 7:53 PM CDT AMYLASE Stat 01/13/2011 7:53 PM CDT COMPREHENSIVE METABOLIC PANEL Stat 01/13/2011 7:53 PM CDT URINALYSIS WITH REFLEX CULTURE Stat 01/13/2011 7:35 PM CDT URINALYSIS WITH MICROSCOPIC Stat 01/13/2011 7:35 PM CDT URINE CULTURE Stat 01/13/2011 7:35 PM CDT XR ABDOMEN W DECUB AND OR ERECT 2 VW Stat 01/13/2011 7:32 PM CDT documented in this encounter Results * GGT (01/13/2011 7:53 PM CDT) GGT 12 4 - 22 U/L [facility] Blood specimen (specimen) 01/13/2011 7:53 PM CDT 01/13/2011 8:01 PM CDT George Rousseau MD CHEMISTRY ORDERABLE S Performing Organization Address [facility] Co de Phone Number [facility] CLIA# [id number] [address] [place] [address] * (ABNORMAL) SEDIMENTATION RATE (01/13/2011 7:53 PM CDT) ESR (SEDIMENTATION RATE) 27(H) 0 - 20 mm/hr [facility] Blood specimen (specimen) 01/13/2011 7:53 PM CDT 01/13/2011 8:01 PM CDT George Rousseau MD HEMATOLOGY ORDERABL ES Performing Organization Address [facility] Co de Phone Number [facility] CLIA# [id number] [address] [place] [address] * C-REACTIVE PROTEIN (01/13/2011 7:53 PM CDT) CRP 0.8 0.0 - 0.8 mg/dL [facility] Blood specimen (specimen) 01/13/2011 7:53 PM CDT 01/13/2011 8:01 PM CDT George Rousseau MD CHEMISTRY ORDERABLE S Performing Organization Address City/[facility]/ZIP Co de Phone Number [facility] CLIA# [id number] [address] [place] [address] * LIPASE (01/13/2011 7:53 PM CDT) LIPASE 14 13 - 60 U/L [facility] Blood specimen (specimen) 01/13/2011 7:53 PM CDT 01/13/2011 8:01 PM CDT George Rousseau MD CHEMISTRY ORDERABLE S Performing Organization Address [facility] Co de Phone Number [facility] CLIA# [id number] [address] [place], [place] [address] * AMYLASE (01/13/2011 7:53 PM CDT) AMYLASE 31 28 - 100 U/L [facility] Blood specimen (specimen) 01/13/2011 7:53 PM CDT 01/13/2011 8:01 PM CDT George Rousseau MD CHEMISTRY ORDERABLE S Performing Organization Address [facility] Co de Phone Number [facility] CLIA# [id number] [address] [place], [place] [address] * (ABNORMAL) COMPREHENSIVE METABOLIC PANEL (01/13/2011 7:53 PM CDT) SODIUM 141 135 - 145 mmol/L [facility] POTASSIUM 4.4 3.5 - 4.9 mmol/L [facility] Comment:Slight hemolysis pre sent. Result may be falsely elevated. CHLORIDE 106 96 - 108 mmol/L [facility] CO2 23 22 - 30 mmol/L [facility] CALCIUM 10.0 8.8 - 10.8 mg/dL [facility] BUN 8 6 - 20 mg/dL [facility] CREATININE 0.53 0.44 - 0.68 mg/dL [facility] GLUCOSE 78 60 - 110 mg/dL [facility] TOTAL PROTEIN 7.5 6.3 - 8.6 g/dL [facility] ALBUMIN 4.3 3.8 - 5.4 g/dL [facility] BILIRUBIN TOTAL 0.2 0.2 - 1.0 mg/dL [facility] ALKALINE PHOSPHATASE 264 35 - 300 U/L [facility] AST 29 12 - 32 U/L [facility] Comment:Hemolyzed: Result ma y be falsely elevated. ALT 33(H) 0 - 31 U/L [facility] GFR, N/A:MDRD equation validated for pts.>18 yrs. >=60 mL/min/1 .7 sq meter [facility] GFR N/A:MDRD equation validated for pts.>18 yrs. >=60 mL/min/1 .7 sq meter [facility] Comment: GFR is calculated using the IDMS-Traceable Modification of Diet in Renal Disease (MDRD) Study formula and is only valid for patients 18 years or older. Further interpretative information is available in the Laboratory Services Policy Manual on the [facility] Intranet at: [email or web address]/ Blood specimen (specimen) 01/13/2011 7:53 PM CDT 01/13/2011 8:01 PM CDT George Rousseau MD CHEMISTRY ORDERABLE S [facility] CLIA# [id number] [address] [place] [address] * (ABNORMAL) CBC WITH DIFFERENTIAL, PEDIATRIC (01/13/2011 7:53 PM CDT) NRBC 0 <=0 /100 WBC [facility] WBC 15.7(H) 4.5 - 13.5 K/uL [facility] RBC 4.58 4.00 - 5.20 M/uL [facility] HEMOGLOBIN 11.8 11.5 - 15.5 g/dL [facility] HEMATOCRIT 36.2 35.0 - 45.0 % [facility] MCV 79.0 77.0 - 95.0 fL [facility] MCH 25.8 24.0 - 30.0 pg [facility] MCHC 32.6 30.0 - 36.0 % [facility] PLATELETS 367(H) 140 - 350 K/uL [facility] MPV 11.4 9.3 - 12.4 fL [facility] RDW 14.1 11.5 - 14.5 % [facility] RDW-STDEV 40.2 37.1 - 48.7 fL [facility] NEUTROPHILS, SEG 59 36 - 74 % [facility] LYMPHOCYTES 36 18 - 53 % [facility] MONOCYTES 3 2 - 13 % [facility] EOSINOPHILS 2 2 - 12 % [facility] BASOPHILS 0 0 - 3 % [facility] PLATELET EST. Consistent w/ count Normal [facility] NEUTROPHIL ABSOLUTE 9.26 K/uL [facility] LYMPHOCYTE ABSOLUTE 5.65 K/uL [facility] MONOCYTE ABSOLUTE 0.47 K/uL [facility] EOSINOPHIL ABSOLUTE 0.31 K/uL [facility] BASOPHILS ABSOLUTE 0.00 K/uL [facility] ANISOCYTOSIS Slight [facility] REVIEWED ON SMEAR Plt reviewed [facility] Blood specimen (specimen) 01/13/2011 7:53 PM CDT 01/13/2011 8:01 PM CDT George Rousseau MD HEMATOLOGY ORDERABL ES Performing Organization Address City/[facility]/ZIP Co de Phone Number [facility] CLIA# [id number] [address] [facility] [place] [address] * URINE CULTURE (01/13/2011 7:35 PM CDT) FINAL MICRO REPORT Polymicrobial growth present consistent with urethral brendon and/or colonizing bacteria. [facility] 01/13/2011 7:35 PM CDT 01/13/2011 8:46 PM CDT Comment:URINE VOIDED George Rousseau MD MICROBIOLOGY - GENE RAL ORDERABLES Performing Organization Address City/[facility]/ZIP Co de Phone Number [facility] CLIA# [id number] [address] [place], [place] [address] * (ABNORMAL) URINALYSIS WITH MICROSCOPIC (01/13/2011 7:35 PM CDT) COLOR UA Pale Yellow [facility] CLARITY UA Clear Clear [facility] SPECIFIC GRAVITY UA 1.013 1.001 - 1.035 [facility] PH UA 5.0 5.0 - 8.0 [facility] LEUKOCYTE ESTERASE UA Trace(A) Negative [facility] NITRITE UA Negative Negative [facility] PROTEIN UA Negative Negative [facility] GLUCOSE UA Negative Negative [facility] KETONES UA Negative Negative [facility] UROBILINOGEN UA <1 <=1 mg/dL [facility] BILIRUBIN UA Negative Negative [facility] BLOOD UA Negative Negative [facility] WBC UA 1 0 - 5 /HPF [facility] RBC UA <1 0 - 4 /HPF [facility] EPITHELIAL CELLS, URINE 0-2 /HPF [facility] 01/13/2011 7:35 PM CDT 01/13/2011 8:01 PM CDT Comment:URINE VOIDED George Rousseau MD URINE ORDERABLES Performing Organization Address [facility] Co de Phone Number [facility] CLIA# [id number] [address] [address] * URINALYSIS WITH REFLEX CULTURE (01/13/2011 7:35 PM CDT) URINE CULTURE ORDER Culture ordered [facility] Comment: Criteria for a reflex culture include one or more of the following: ??Abnormal nitrite, leukocyte esterase, WBCs or RBCs. ??Lack of qualifying criteria does not exclude the possiblity of a urinary tract infection. ??Dilute urine, drug interference, etc. may decrease the sensitivity of the criteria analytes. Urine, clean catch 01/13/2011 7:35 PM CDT 01/13/2011 8:01 PM CDT Comment:URINE VOIDED George Rousseau MD URINE ORDERABLES Performing Organization Address City/[facility]/ZIP Co de Phone Number [facility] CLIA# [id number] [address] [address] * XR ABDOMEN W DECUB AND OR ERECT (01/13/2011 7:32 PM CDT) Anatomical Region Laterality Modality Abdomen Computed Radiogr aphy 01/13/2011 7:27 PM CDT Impressions 01/14/2011 7:36 AM CDT IMPRESSION: Normal abdominal exam. Narrative 01/14/2011 7:36 AM CDT OBSTRUCTION SERIES, 2 VIEWS HISTORY: ??Abdominal Pain FINDINGS: ??The bowel gas pattern is normal. There is no free intraperitoneal air. There is no evidence of obstruction. ??No abnormal calcifications are seen. ?? Procedure Note Oralia Villalba MD - 01/14/2011 OBSTRUCTION SERIES, 2 VIEWS HISTORY: Abdominal Pain FINDINGS: The bowel gas pattern is normal. There is no free intraperitoneal air. There is no evidence of obstruction. No abnormal calcifications are seen. IMPRESSION IMPRESSION: Normal abdominal exam. George Rousseau MD DIAGNOSTIC IMAGING ORDERABLES documented in this encounter Visit Diagnoses Diagnosis Abdominal pain Abdominal pain, unspecified site documented in this encounter Administered Medications Inactive Administered Medications - up to 3 most recent administrations Medication Order MAR Action Action Date Dose Rate Site aluminum-magnesium hydroxide 200-200 mg/5 mL oral suspension 15 mL 15 mL, Oral, ONE TIME ONLY, 1 dose, On Radha 01/13/11 at 1930, Routine Given 01/13/2011 7:44 PM CDT 15 mL famotidine PF (PEPCID) 20 mg/2 mL injection 20 mg 20 mg, IV, ONE TIME ONLY, 1 dose, On Radha 01/13/11 at 1930, Routine Given 01/13/2011 7:51 PM CDT 20 mg GI cocktail oral suspension 30 mL 30 mL, Oral, ONE TIME ONLY, 1 dose, On Radha 01/13/11 at 2114, Routine Given 01/13/2011 9:21 PM CDT 30 mL ondansetron (ZOFRAN) 4 mg/2 mL injection 4 mg 4 mg, IV, ONE TIME ONLY, 1 dose, On Radha 01/13/11 at 1930, Routine Given 01/13/2011 7:51 PM CDT 4 mg SODIUM CHLORIDE 0.9 % IV 1 dose, Starting on Radha 01/13/11 at 1936, Until Radha 01/13/11 at 194, Cem PHILLIP: Cabinet Override Given 01/13/2011 7:45 PM CDT sodium chloride 0.9% bolus solution 750 mL 750 mL, IV, ONE TIME ONLY, 1 dose, On Radha 01/13/11 at 1930, at 750 mL/hr, Administer over 60 Minutes, Routine Given 01/13/2011 7:52 PM CDT 750 mL 750 mL/hr documented in this encounter Active and Recently Administered Medications Times are shown in CDT. Scheduled Medication Order 01/11/2011 01/12/2011 01/13/2011 aluminum-magnesium hydroxide 200-200 mg/5 mL oral suspension 15 mL (COMPLETED) 15 mL, Oral, ONE TIME ONLY, 1 dose, On Radha 01/13/11 at 1930, Routine 194 (Given - Provid er: Chayito Priest RN) famotidine PF (PEPCID) 20 mg/2 mL injection 20 mg (COMPLETED) 20 mg, IV, ONE TIME ONLY, 1 dose, On Radha 01/13/11 at 1930, Routine 1950 (Given - Provid er: Chayito Priest RN) GI cocktail oral suspension 30 mL (COMPLETED) 30 mL, Oral, ONE TIME ONLY, 1 dose, On Radha 01/13/11 at 2114, Routine 2120 (Given - Provid er: Chayito Priest RN) ondansetron (ZOFRAN) 4 mg/2 mL injection 4 mg (COMPLETED) 4 mg, IV, ONE TIME ONLY, 1 dose, On Radha 01/13/11 at 1930, Routine 1950 (Given - Provid er: Chayito Priest RN) sodium chloride 0.9% bolus solution 750 mL (COMPLETED) 750 mL, IV, ONE TIME ONLY, 1 dose, On Radha 01/13/11 at 1930, at 750 mL/hr, Administer over 60 Minutes, Routine 1951 (Given - Provid er: Chayito Priest RN) No Frequency Medication Order 01/11/2011 01/12/2011 01/13/2011 SODIUM CHLORIDE 0.9 % IV (COMPLETED) 1 dose, Starting on Radha 01/13/11 at 1936, Until Radha 01/13/11 at 194Cem OMNICELL: Cabinet Override 1944 (Given - Provid er: Chayito Priest RN - Comment: used to dilute pepcid) documented in this encounter Care Teams Welt Butter Hand Relationship Specialty Start Date End Date Bailey Hastings MD PCP - General 10/29/08 12/09/15 documented as of this encounter
--- OUTSIDE RECORDS SUMMARY | 2024-08-27 07:02 | XMS_ITS | Encounter Summary ---
Author Organization [employer] Address [address] [place] [address] Care Team Providers Care Custom Stock Maker Name Role Phone Bailey Hastings MD Primary Care Provider [phone] Reason for Visit * Reason Comments Headache headache and fever - started yesterday/vomiting Meds-Tylenol Encounter Details Date Type Department Care Team (Late st Contact Info) Description 11/16/2010 9:15 AM CORRUGATOR Office Visit [facility] [address] [facility] [place] [address] Bailey Hastings MD [address] [facility] [address] [place] [address] Fever; Vomiting Social History Tobacco Use Types Packs/Day Years Used Date Smoking Tobacco: Never Assessed Sex and Gender Information Value Date Recorded Sex Assigned at Not on file Gender Identity Not on file Sexual Orientation Not on file documented as of this encounter Last Filed Vital Signs Vital Sign Reading Time Taken Comments Blood Pressure 120/68 11/16/2010 9:20 AM CORRUGATOR Pulse - - Temperature 37.2 ??C (98.9 ??F) 11/16/2010 9:20 AM CS T Respiratory Rate - - Oxygen Saturation - - Inhaled Oxygen Concentration - - Weight 56.8 kg (125 lb 4 oz) 11/16/2010 9:20 AM CORRUGATOR Height 146.1 cm (4' 9.5 ) 11/16/2010 9:20 AM CORRUGATOR Body Mass Index 26.63 11/16/2010 9:20 AM CORRUGATOR Body Mass Index Percentile 96.85% 11/16/2010 9:2 0 AM CORRUGATOR Growth Chart: CDC (Girls, 2- 20 Years) documented in this encounter Progress Notes * Kiah Bonilla - 11/16/2010 9:47 AM CST Results for orders placed in visit on 11/16/10 POC INFLUENZA A AND B Component Value Range ??? POC INFLUENZA A Negative ??? POC INFLUENZA B Negative UGATOR * Bailey Hastings MD - 11/16/2010 9:41 AM CST Fever, headache, mild sore throat for about 2 days. Temp to 102 range. Mild cough Sister with same symptoms. Has vomited a few times. Keeping down liquids better than solids BP 120/68 Temp(Src) 98.9 ??F (37.2 ??C) (Tympanic) Ht 57.5 (146.1 cm) Wt 56.813 kg (125 lb 4oz) BMI 26.63 kg/m2 Alert, No acute distress, non-toxic appearing Ears-clear tm's bilaterally Throat-clear, no tonsillar swelling, exudate Nose-no rhinorhea Chest-clear to auscultation bilaterally Heart-regular rate and rhythm , no murmur Skin- no rash +enlarged lymph nodes in neck-mild Encounter Diagnoses 1. Fever (780.60BV) POC INFLUENZA A AND B 2. Vomiting (787.03B) ondansetron (ZOFRAN ODT) 4 mg Oral TbDL UGATOR documented in this encounter Plan of Treatment Not on file documented as of this encounter Procedures Procedure Name Priority Date/Time Associated Diagnosis Comments POC INFLUENZA A AND B ANTIGEN Routine 11/16/2010 Fever documented in this encounter Results * POC INFLUENZA A AND B (11/16/2010) INFLUENZA A AG POC Negative [facility] INFLUENZA B AG POC Negative [facility] Nasopharyngeal Bailey Hastings MD POINT OF CARE TESTI NG [facility] documented in this encounter Visit Diagnoses Diagnosis Fever Fever, unspecified Vomiting Vomiting alone documented in this encounter Care Teams Custom Stock Maker Relationship Specialty Start Date End Date Bailey Hastings MD PCP - General 10/29/08 12/09/15 documented as of this encounter
--- OUTSIDE RECORDS SUMMARY | 2024-08-27 07:02 | XMS_ITS | Encounter Summary ---
Author Organization [employer] Address [address] [place] [address] Care Team Providers Care Cognos Name Role Phone Bailey Hastings MD Primary Care Provider Encounter Details Date Type Department Care Team (Late st Contact Info) Description 01/17/2011 Abstract [facility] [address] [facility] [place] [address] Bailey Hastings MD [address] [facility] [address] [place] [address] Social History Tobacco Use Types [...] on filedocumented in this encounter Care Teams Cognos Relationship Specialty Start Date End Date Bailey Hastings MD PCP - General 10/29/08 3 documented as of this encounter
--- OUTSIDE RECORDS SUMMARY | 2024-08-27 07:02 | XMS_ITS | Encounter Summary ---
Author Organization [facility] Address [address] [place] [address] Care Team Providers Care Financial Consultant Name Role Phone Bailey Hastings MD Primary Care Provider Reason for Visit * Reason Comments Sore Throat Fever up to 100, cou gh, low appetite, and ST as of last night. Meds: Tylenol. No other sx's. Encounter Details Date Type Department Care Team (Late st Contact Info) Description 05/18/2011 9:45 AM CDT Office Visit [facility] [address] [place] [id number] Bailey Hastings MD [address] [facility] [address] [place] [address] Acute pharyngitis (Primary Dx); URI (upper respiratory infection) Social History Tobacco Use Types Packs/Day Years [...] Sign Reading Time Taken Comments Blood Pressure 122/62 05/18/2011 9:57 AM CDT Pulse - - Temperature 37.1 ??C (98.7 ??F) 05/18/2011 9:57 AM CD T Respiratory Rate - - Oxygen Saturation - - Inhaled Oxygen Concentration - - Weight 66.2 kg (146 lb) 05/18/2011 9:57 AM CDT Height 151.1 cm (4' 11.5 ) 05/18/2011 9:57 AM CD T Body Mass Index 28.99 05/18/2011 9:57 AM CDT Body Mass Index Percentile 97.95% 05/18/2011 9:5 7 AM CDT Growth Chart: [facility] (Girls, 2- 20 Years) documented in this encounter Progress Notes * Gianluca Medina - 05/18/2011 10:13 AM CDT Results for orders placed in visit on 05/18/11 POC RAPID STREP A Component Value Range ? ? RAPID STREP Negative > NEG * Bailey Hastings MD - 05/18/2011 10:10 AM CDT History was provided by the patient, father. SUBJECTIVE: 10 y.o. female with sore throat. Symptoms began 1 day ago and are controlled since thattime. No history of rheumatic fever. Other symptoms: coryza, congestion, sore throat and cough described as harsh Exam/Objective: BP 122/62 Temp(Src) 98.7 ??F (37.1 ??C) (Tympanic) Ht 59.5 (151.1 cm) Wt 66.225 kg (146 lb) BMI 28.99 kg/m2 Alert, No acute distress, non-toxic appearing Ears-clear tm's bilaterally Throat-+postnasal drainage Mild lymphadenopathy Nose-no rhinorhea Chest-clear to auscultation bilaterally Heart-regular rate and rhythm , no murmur Abdomen-soft, non-tender and non-distended Skin- no rash Assessment: pharyngitis, viral Plan: Appropriate medications prescribed (see orders section and AVS). Appropriate patient instructions provided (see detailed AVS). Follow-up as I have indicated. Medications and options explained to include common side effects. Understanding of medications, course, diagnosis, and expectations expressed by patient/guardian. documented in this encounter Plan of Treatment Not on file documented as of this encounter Procedures Procedure Name Priority Date/Time Associated Diagnosis Comments POC RAPID STREP A ANTIGEN Routine 05/18/2011 Acute pharyngitis documented in this encounter Results * STREPTOCOCCUS GROUP A CULTURE (05/18/2011 10:19 PM CDT) FINAL MICRO REPORT No Group A, C, or G beta Streptococcus isolated. [facility] Specimen of unknown material (specimen) SPECIMEN FROM THROAT / Unknown 05/18/2011 10:19 PM CDT 05/18/2011 10:25 PM CDT Comment:THROAT Bailey Hastings MD MICROBIOLOGY - GENE RAL ORDERABLES Performing Organization Address [facility] Co de Phone Number [facility] CLIA# [id number] [address] [facility] [facility] [address] * POC RAPID STREP A (05/18/2011) RAPID STREP Negative NEG [facility] Specimen from throat (specimen) Bailey Hastings MD POINT OF CARE TESTI NG Performing Organization Address [facility] Co de Phone Number [facility] documented in this encounter Visit Diagnoses Diagnosis Acute pharyngitis- Primary URI (upper respiratory infection) Acute upper respiratory infections of unspecified site documented in this encounter Care Teams Financial Consultant Relationship Specialty Start Date End Date Bailey Hastings MD PCP - General 10/29/08 12/09/15 documented as of this encounter
--- OUTSIDE RECORDS SUMMARY | 2024-08-27 07:02 | XMS_ITS | Encounter Summary ---
Author Organization [employer] Address [address] [place] [address] Care Team Providers Care Senior Mainframe Developer Name Role Phone Bailey Hastings MD Primary Care Provider [phone] Encounter Details Date Type Department Care Team (Late st Contact Info) Description 02/09/2010 Abstract [facility] [address] [facility] [place] [address] Bailey Hastings MD [address] [facility] [address] [place] [address] Social History Tobacco Use Types [...] filedocumented in this encounter Care Teams Senior Mainframe Developer Relationship Specialty Start Date End Date Bailey Hastings MD PCP - General 10/29/08 3 documented as of this encounter
--- OUTSIDE RECORDS SUMMARY | 2024-08-27 07:02 | XMS_ITS | Encounter Summary ---
Author Organization [employer] Address [address] [place] [address] Care Team Providers Care Farmworker Bulbs Name Role Phone Bailey Hastings MD Primary Care Provider [phone] Reason for Visit * Reason Comments Asthma went to 2 weeks a go-dx with asthma(having asthma attack) and given an albuterol inhlaer---needs refill Encounter Details Date Type Department Care Team (Late st Contact Info) Description 11/09/2009 8:45 AM SALES SERVICE REPRESENTATIVE [facility] [address] [facility]. [address] [place] [address] Bailey Hastings MD [address] [facility] [address] [place] [address] Asthma with Acute Exacerbation; Allergic Rhinitis, Cause Unspecified Social History Tobacco Use Types Packs/Day Years [...] - Inhaled Oxygen Concentration - - Weight 49 kg (108 lb) 11/09/2009 8:50 AM SALES SERVICE REPRESENTATIVE Height 139.7 cm (4' 7 ) 11/09/2009 8:50 AM SALES SERVICE REPRESENTATIVE Body Mass Index 25.1 11/09/2009 8:50 AM SALES SERVICE REPRESENTATIVE Body Mass Index Percentile 96.70% 11/09/2009 8:5 0 AM SALES SERVICE REPRESENTATIVE Growth Chart: CDC (Girls, 2- 20 Years) documented in this encounter Progress Notes * Bailey Hastings MD - 11/09/2009 8:59 AM CST Urgent care visit two weeks ago. Given cough med and inhaler. Using about every other day. No history of asthma, but coughing and allergies in the spring. remodeling at home. Mom with asthma. Patient with seasonal allergies in spring. No waking up at night coughing. No smokers in the home. Alert, no distress Boggy nasal turbinates Chest-clear Throat-clear Tm's normal 1. Mild intermittent asthma, seasonal allergies-trial of singulair. If still with symptoms mom to call and we will try inhaled steroid. S SERVICE REPRESENTATIVE documented in this encounter Plan of Treatment Not on file documented as of this encounter Visit Diagnoses Diagnosis Asthma with acute exacerbation Unspecified asthma, with exacerbation Allergic rhinitis, cause unspecified documented in this encounter Care Teams Farmworker Bulbs Relationship Specialty Start Date End Date Bailey Hastings MD PCP - General 10/29/08 12/09/15 documented as of this encounter
--- OUTSIDE RECORDS SUMMARY | 2024-08-27 07:02 | XMS_ITS | Encounter Summary ---
Author Organization [employer] Address [address] [place] [address] Care Team Providers Care Pig Sticker Name Role Phone Bailey Hastings MD Primary Care Provider Reason for Visit * Reason Comments Cough chest pain, sore thr oat, stomachache, mouth was sore monday,no fever, sx 2days, med:none Encounter Details Date Type Department Care Team (Late st Contact Info) Description 08/10/2010 10:45 AM CORN HUSKER [facility] [address] [facility] [place] [address] Bailey Hastings MD [address] [facility] [address] [place] [address] Cough (Primary Dx) Social History [...] Pressure - - Pulse - - Temperature 37.2 ??C (98.9 ??F) 08/10/2010 10:[address] Respiratory Rate - - Oxygen Saturation - - Inhaled Oxygen Concentration - - Weight 54.9 kg (121 lb) 08/10/2010 10:51 AM CORN HUSKER Height - - Body Mass Index - - documented in this encounter Progress Notes * Bailey Hastings MD - 08/10/2010 11:02 AM CST Cough and some chest pain for 2-3 days. No fever. +runny nose. No vomiting or diarrhea. Used albuterol once yesterday Alert, no distress Chest-clear but not a good respiratory effort Mouth-moist +postnasal drainage in throat Skin-no rash Normal tm's Encounter Diagnoses 1. Cough (786.2) promethazine-codeine (PHENERGAN WITH CODEINE) 6.25-10 mg/5 mL Oral solution, montelukast (SINGULAIR) 10 mg Oral tablet, albuterol (PROVENTIL,VENTOLIN) 90 mcg/Actuation Inhalation HFAA HUSKER documented in this encounter Plan of Treatment Not on file documented as of this encounter Visit Diagnoses Diagnosis Cough- Primary documented in this encounter Care Teams Pig Sticker Relationship Specialty Start Date End Date Bailey Hastings MD PCP - General 10/29/08 12/09/15 documented as of this encounter
--- OUTSIDE RECORDS SUMMARY | 2024-08-27 07:02 | XMS_ITS | Encounter Summary ---
Author Organization [facility] Address [address] [place] [address] Care Team Providers Care Nut Feeder Name Role Phone Bailey Hastings MD Primary Care Provider Encounter Details Date Type Department Care Team (Late st Contact Info) Description 01/19/2011 Abstract [facility] [address] [facility] [address] [address] Adiel Manuel MD [address] [facility] [address] [place] [address] Social History Tobacco Use Types Packs/Day Years Used Date Smoking Tobacco: Never Assessed Sex and Gender Information Value Date Recorded Sex Assigned at Not on file Gender Identity Not on file Sexual Orientation Not on file documented as of this encounter Plan of Treatment Not on file documented as of this encounter Visit Diagnoses Not on filedocumented in this encounter Care Teams Nut Feeder Relationship Specialty Start Date End Date Bailey Hastings MD PCP - General 10/29/08 3 documented as of this encounter
--- OUTSIDE RECORDS SUMMARY | 2024-08-27 07:02 | XMS_ITS | Encounter Summary ---
Author Organization [employer] Address [address] [place] [address] Care Team Providers Care Welder Repair Name Role Phone Bailey Hastings MD Primary Care Provider Reason for Visit * Reason Comments Sore Throat Sore throat x2days, slight cough, Meds: None. No other sx's. Encounter Details Date Type Department Care Team (Late st Contact Info) Description 12/02/2010 9:15 AM CDT Office Visit [facility] [address] [facility] [place] [address] Grace Velázquez, CATERING STAFF MEMBER [address] [facility] [address] [place] [address] Acute pharyngitis (Primary Dx) Social History Tobacco Use Types Packs/Day Years Used Date Smoking Tobacco: Never Assessed Sex and Gender Information Value Date Recorded Sex Assigned at Not on file Gender Identity Not on file Sexual Orientation Not on file documented as of this encounter Last Filed Vital Signs Vital Sign Reading Time Taken Comments Blood Pressure 120/68 12/02/2010 8:59 AM CDT Pulse - - Temperature 36.1 ??C (97 ??F) 12/02/2010 8:59 AM CDT Respiratory Rate - - Oxygen Saturation - - Inhaled Oxygen Concentration - - Weight 59 kg (130 lb) 12/02/2010 8:59 AM CDT Height 146.1 cm (4' 9.5 ) 12/02/2010 8:59 AM CDT Body Mass Index 27.64 12/02/2010 8:59 AM CDT Body Mass Index Percentile 97.51% 12/02/2010 8:5 9 AM CDT Growth Chart: CDC (Girls, 2- 20 Years) documented in this encounter Progress Notes * Grace Velázquez NP - 12/02/2010 9:15 AM CDT Chief Complaint Patient presents with ??? Sore Throat Sore throat x2days, slight cough, Meds: None. No other sx's. HPI: Sore throat started about 2 days ago. Also with cough off and on, mom thinks could be allergy or asthma related. No fever. Complaining of headache today, stomach ache off and on x 2 days. No fever. O: Eyes: Clear Ears: Both T.M.'s clear Nose: Pale mucosa, no drainage Throat: No erythema, tonsils normal appearing Neck: Tender AC nodes, no swelling Lungs: CTA, no wheeze A: Pharyngitis, likely viral P: Rapid strep: Negative. Send throat culture. Recommended ibuprofen 400 mg every 6 hours prn pain.Supportive care, normal progression and call back reviewed. * Gianluca Medina - 12/02/2010 9:10 AM CDT Results for orders placed in visit on 12/02/10 POC RAPID STREP A Component Value Range ? ? RAPID STREP Negative > NEG documented in this encounter Plan of Treatment Not on file documented as of this encounter Procedures Procedure Name Priority Date/Time Associated Diagnosis Comments POC RAPID STREP A ANTIGEN Routine 12/02/2010 Acute pharyngitis documented in this encounter Results * STREPTOCOCCUS GROUP A CULTURE (12/02/2010 4:14 PM CDT) FINAL MICRO REPORT No Group A, C, or G beta Streptococcus isolated. [facility] Specimen of unknown material (specimen) SPECIMEN FROM THROAT / Unknown 12/02/2010 4:14 PM CDT 12/02/2010 4:20 PM CDT Comment:THROAT Grace Velázquez NP MICROBIOLOGY - GE NERAL ORDERABLES [facility] CLIA# [id number] Carlie5 Severiano CORRIGAN [address] [address] * POC RAPID STREP A (12/02/2010) RAPID STREP Negative NEG [facility] Specimen from throat (specimen) Grace Velázquez NP POINT OF CARE LORENZA TING Performing Organization Address City/[facility]/ZIP Co de Phone Number [facility] documented in this encounter Visit Diagnoses Diagnosis Acute pharyngitis- Primary documented in this encounter Care Teams Welder Repair Relationship Specialty Start Date End Date Bailey Hastings MD PCP - General 10/29/08 12/09/15 documented as of this encounter
--- OUTSIDE RECORDS SUMMARY | 2024-08-27 07:02 | XMS_ITS | Encounter Summary ---
Author Organization [employer] Address [address] [place] [address] Care Team Providers Care Gasket Inspector Name Role Phone Bailey Hastings MD Primary Care Provider Reason for Visit * Reason Onset Date Comments Medication Refill 01/29/2010 Encounter Details Date Type Department Care Team (Late st Contact Info) Description 01/29/2010 Refill [facility] [address] [facility] [place] [address] Bailey Hastings MD [address] [facility] [address] [place] [address] Cough (Primary Dx) Social History [...] Primary documented in this encounter Care Teams Gasket Inspector Relationship Specialty Start Date End Date Bailey Hastings MD PCP - General 10/29/08 3 documented as of this encounter
--- OUTSIDE RECORDS SUMMARY | 2024-08-27 07:02 | XMS_ITS | Encounter Summary ---
Author Organization [employer] Address [address] [place] [address] Care Team Providers Care Stiff Leg Derrick Operator Name Role Phone Bailey Hastings MD Primary Care Provider Encounter Details Date Type Department Care Team (Late st Contact Info) Description 07/06/2011 4:51 PM CDT - 07/06/2011 11:59 PM CDT Hospital Encounter [facility] Laboratory Support Services [employer] [address] [place] [address] Bailey Hastings MD [address] [facility] [address] [place] [address] Pharyngitis Discharge Disposition: Home or [...] Diagnosis Comments STREPTOCOCCUS GROUP A CULTURE Routine 07/06/2011 4:51 PM CDT Pharyngitis documented in this encounter Results * STREPTOCOCCUS GROUP A CULTURE (07/06/2011 4:51 PM CDT) FINAL MICRO REPORT No Group A, C, or G beta Streptococcus isolated. [facility] Specimen of unknown material (specimen) SPECIMEN FROM THROAT / Unknown 07/06/2011 4:51 PM CDT 07/06/2011 5:14 PM CDT Comment:THROAT Bailey Hastings MD MICROBIOLOGY - [facility] ORDERABLES [facility]# [id number] [address] [place] [address] documented in this encounter Visit Diagnoses Diagnosis Pharyngitis Acute pharyngitis documented in this encounter Care Teams Stiff Leg Derrick Operator Relationship Specialty Start Date End Date Bailey Hastings MD PCP - General 10/29/08 3 documented as of this encounter
--- OUTSIDE RECORDS SUMMARY | 2024-08-27 07:02 | XMS_ITS | Encounter Summary ---
Author Organization [facility] Address [address] [place] [address] Care Team Providers Care Hotel Housekeeper Name Role Phone Bailey Hastings MD Primary Care Provider [phone] Reason for Visit * Reason Comments Fever Fever started last n ight, has been up to 101. Also with vomiting that started last night. Also with sore throat and headache. Med:Motrin Encounter Details Date Type Department Care Team (Late st Contact Info) Description 07/06/2011 11:00 AM CDT Office Visit [facility] Pediatric[facility] [address] [place] [phone] Bailey Hastings MD [address] [facility] [address] [place] [address] Pharyngitis (Primary Dx); Vomiting Social [...] Sign Reading Time Taken Comments Blood Pressure 110/68 07/06/2011 11:05 AM CDT Pulse - - Temperature 36.9 ??C (98.4 ??F) 07/06/2011 11:05 AM C DT Respiratory Rate - - Oxygen Saturation - - Inhaled Oxygen Concentration - - Weight 67.1 kg (148 lb) 07/06/2011 11:05 AM CDT Height 151.1 cm (4' 11.5 ) 07/06/2011 11:05 AM C DT Body Mass Index 29.39 07/06/2011 11:05 AM CDT Body Mass Index Percentile 98.06% 07/06/2011 11: 05 AM CDT Growth Chart: [facility] (Girls, 2- 20 Years) documented in this encounter Progress Notes * Bailey Hastings MD - 07/06/2011 11:24 AM CDT Sore throat, congestion and vomiting since last night. No fever. Started last night. Vomited twice overnight. +nausea. BP 110/68 Temp(Src) 98.4 ??F (36.9 ??C) (Tympanic) Ht 59.5 (151.1 cm) Wt 67.132 kg (148 lb) BMI 29.39 kg/m2 Alert, No acute distress, non-toxic appearing Ears-clear tm's bilaterally Throat-clear, no tonsillar swelling, exudate Nose-no rhinorhea Chest-clear to auscultation bilaterally Heart-regular rate and rhythm , no murmur Skin- no rash Encounter Diagnoses 1. Pharyngitis (462Y) POC RAPID STREP A, STREPTOCOCCUS GROUP A CULTURE 2. Vomiting (787.03B) ondansetron (ZOFRAN ODT) 4 mg Oral TbDL documented in this encounter Plan of Treatment Not on file documented as of this encounter Procedures Procedure Name Priority Date/Time Associated Diagnosis Comments POC RAPID STREP A ANTIGEN Routine 07/06/2011 11:16 AM CDT Pharyngitis documented in this encounter Results * STREPTOCOCCUS GROUP A CULTURE (07/06/2011 4:51 PM CDT) FINAL MICRO REPORT No Group A, C, or G beta Streptococcus isolated. [facility] Specimen of unknown material (specimen) SPECIMEN FROM THROAT / Unknown 07/06/2011 4:51 PM CDT 07/06/2011 5:14 PM CDT Comment:THROAT Bailey Hastings MD MICROBIOLOGY - [facility] ORDERABLES [facility] LABORATORY [facility] CLIA# [id number] [address] [place] [address] * POC RAPID STREP A (07/06/2011 11:16 AM CDT) RAPID STREP Negative [facility] Specimen from throat (specimen) Bailey Hastings MD POINT OF CARE TESTI [facility] documented in this encounter Visit Diagnoses Diagnosis Pharyngitis- Primary Acute pharyngitis Vomiting Vomiting alone documented in this encounter Care Teams Hotel Housekeeper Relationship Specialty Start Date End Date Bailey Hastings MD PCP - General 10/29/08 12/09/15 documented as of this encounter
--- OUTSIDE RECORDS SUMMARY | 2024-08-27 07:02 | XMS_ITS | Encounter Summary ---
Author Organization [employer] Address [address] [place] [address] Care Team Providers Care Manager Decision Support Name Role Phone Bailey Hastings MD Primary Care Provider Reason for Visit * Reason Comments Ear Pain Bilateral ear pain x 2 days, no fever, no other symptoms. Meds: None Encounter Details Date Type Department Care Team (Late st Contact Info) Description 01/06/2011 4:30 PM CDT Office Visit [facility] [address] [facility] [place] [address] Elle Cornejo MD [address] [facility] [address] [place] [address] Otitis media; Allergic rhinitis; URI (upper respiratory infection) Social History Tobacco Use Types Packs/Day Years Used Date Smoking Tobacco: Never Assessed Sex and Gender Information Value Date Recorded Sex Assigned at Not on file Gender Identity Not on file Sexual Orientation Not on file documented as of this encounter Last Filed Vital Signs Vital Sign Reading Time Taken Comments Blood Pressure 102/64 01/06/2011 4:23 PM CDT Pulse - - Temperature 37.2 ??C (99 ??F) 01/06/2011 4:23 PM CDT Respiratory Rate - - Oxygen Saturation - - Inhaled Oxygen Concentration - - Weight 59.2 kg (130 lb 8 oz) 01/06/2011 4:23 PM CDT Height 149.9 cm (4' 11 ) 01/06/2011 4:23 PM CDT Body Mass Index 26.36 01/06/2011 4:23 PM CDT Body Mass Index Percentile 96.51% 01/06/2011 4:2 3 PM CDT Growth Chart: CDC (Girls, 2- 20 Years) documented in this encounter Progress Notes * Elle Kim MD - 01/06/2011 4:32 PM CDT SUBJECTIVE: Laura Finley is a 10 y.o. female who complains of congestion, sneezing, productive cough and bilateral ear pain for last few days. She denies a history of fevers and does not a history of asthma. Appetite is good and fluid intake is good. OBJECTIVE:BP 102/64 Temp(Src) 99 ??F (37.2 ??C) (Tympanic) Ht 59 (149.9 cm) Wt 59.194 kg (130 lb 8 oz) BMI 26.36 kg/m2 She appears well, vital signs are as noted. Ears normal on right, left - red/dull. Throat and pharynx normal. Neck supple. No adenopathy in the neck. Nose is congested. Sinuses non tender. The chest is clear, without wheezes or rales. Skin exam shows no rash. ASSESSMENT: viral upper respiratory illness and otitis media Allergic rhinitis PLAN: claritin po qday, cont. singulair Amoxil bid x 10 days Symptomatic therapy suggested: push fluids, rest and use vaporizer or mist prn. Saline nose spray with suctioning as needed. . Call or return to clinic prn if these symptoms worsen or fail to improveafter 10-14 days. documented in this encounter Plan of Treatment Not on file documented as of this encounter Visit Diagnoses Diagnosis Otitis media Unspecified otitis media Allergic rhinitis Allergic rhinitis, cause unspecified URI (upper respiratory infection) Acute upper respiratory infections of unspecified site documented in this encounter Care Teams Manager Decision Support Relationship Specialty Start Date End Date Bailey Hastings MD PCP - General 10/29/08 12/09/15 documented as of this encounter
--- OUTSIDE RECORDS SUMMARY | 2024-08-27 07:02 | XMS_ITS | Encounter Summary ---
Author Organization [email or web address] Address [address] [place] [address] Care Team Providers Care Feeder/Folder Name Role Phone Bailey Hastings MD Primary Care Provider Encounter Details Date Type Department Care Team (Late st Contact Info) Description 05/06/2010 5:35 PM CDT - 05/06/2010 11:59 PM CDT Hospital Encounter [facility] Laboratory Support Services [facility] [employer] [address] [place] [address] Grace Velázquez, QUARRYING MANAGER [address] [facility] [address] [place] [address] Pharyngitis Discharge Disposition: Home or [...] Other (See Comment) (cough). 1 Inhaler 1 01/29/2010 08/10/2010 montelukast (SINGULAIR) 5 mg Oral ChewIndications:Asthma with acute exacerbation,Allergic rhinitis, cause unspecified Take 1 Tab by mouth nightly as needed. 30 Tab 5 11/09/2009 08/10/2010 PRILOSEC POIndications:Abdomina l pain Take by mouth. 02/23/2011 documented as of this encounter Plan of Treatment Not on file documented as of this encounter Procedures Procedure Name Priority Date/Time Associated Diagnosis Comments STREPTOCOCCUS GROUP A CULTURE Routine 05/06/2010 1:47 PM CDT Pharyngitis documented in this encounter Results * STREPTOCOCCUS GROUP A CULTURE (05/06/2010 1:47 PM CDT) FINAL MICRO REPORT No Group A, C, or G beta Streptococcus isolated. [facility] Specimen of unknown material (specimen) SPECIMEN FROM THROAT / Unknown 05/06/2010 1:47 PM CDT 05/06/2010 5:43 PM CDT Comment:THROAT Grace Velázquez NP MICROBIOLOGY - [place]ER[place] ORDERABLES [facility] CLIA# [id number] [address] [place] [address] documented in this encounter Visit Diagnoses Diagnosis Pharyngitis Acute pharyngitis documented in this encounter Care Teams Feeder/Folder Relationship Specialty Start Date End Date Bailey Hastings MD PCP - General 10/29/08 12/09/15 documented as of this encounter
--- OUTSIDE RECORDS SUMMARY | 2024-08-27 07:02 | XMS_ITS | Encounter Summary ---
Author Organization [facility] Address [address] [place] [address] Care Team Providers Care Tissue Technologist Name Role Phone Bailey Hastings MD Primary Care Provider Encounter Details Date Type Department Care Team (Latest Contact Info) Description 02/01/2011 11:19 AM CDT - 02/01/2011 11:59 PM T Hospital Encounter [facility] Laboratory Services [address] [place] [address] Adiel Manuel MD [address] [facility] [address] [place] [address] Discharge Disposition: Home or Self Care [...] Procedure Name Priority Date/Time Associated Diagnosis Comments PROTIME-INR Routine 02/01/2011 11:21 AM CDT Abdominal pain, other specified site Nausea COMPREHENSIVE METABOLIC PANEL Routine 02/01/2011 11:21 AM CDT Abdominal pain, other specified site Nausea documented in this encounter Results * PROTIME-INR (02/01/2011 11:21 AM CDT) PROTIME 13.9 12.7 - 15.1 Seconds [facility] INR 1.0 0.9 - 1.1 [facility] Comment: INR Therapeutic Range: Adult: ?? 2.0 - 3.0 for pulmonary embolism or prophylaxis against venous ?thrombosis or systemic embolization. 2.0 - 3.0 for patients with tissue heart valves. 2.5 - 3.5 for patients with mechanical heart valves or post RI. Pediatric ??(12 years and under): 1.5 - 3.0 Although the target range in children is not well established, ?INR values of 1.5 - 3.0 are recommended for most patients. ?Higher values have been used in children with prosthetic ?cardiac valves and hereditary clotting disorders. (<3 days) therapeutic ranges have not been established. Blood specimen (specimen) 02/01/2011 11:21 AM CDT 02/01/2011 11:57 AM CDT Adiel Manuel MD HEMATOLOGY ORDERABLE S [facility] CLIA# [id number] [address] [place] [address] * (ABNORMAL) COMPREHENSIVE METABOLIC PANEL (02/01/2011 11:21 AM CDT) SODIUM 137 135 - 145 mmol/L [facility] POTASSIUM 3.9 3.5 - 4.9 mmol/L [facility] CHLORIDE 105 96 - 108 mmol/L [facility] CO2 24 22 - 30 mmol/L [facility] CALCIUM 9.6 8.8 - 10.8 mg/dL [facility] BUN 16 6 - 20 mg/dL [facility] CREATININE 0.53 0.44 - 0.68 mg/dL [facility] GLUCOSE 132(H) 60 - 110 mg/dL [facility] TOTAL PROTEIN 7.4 6.3 - 8.6 g/dL [facility] ALBUMIN 4.4 3.8 - 5.4 g/dL [facility] BILIRUBIN TOTAL 0.1(L) 0.2 - 1.0 mg/dL [facility] ALKALINE PHOSPHATASE 259 35 - 300 U/L [facility] AST 20 12 - 32 U/L [facility] ALT 31 0 - 31 U/L [facility] GFR, N/A:MDRD equation validated for pts. >18 yrs. >=60 mL/min/1 .7 sq meter [facility] GFR N/A:MDRD equation validated for pts. >18 yrs. >=60 mL/min/1 .7 sq meter [facility] Comment: GFR is calculated using the IDMS-Traceable Modification of Diet in Renal Disease (MDRD) Study formula and is only valid for patients 18 years or older. Further interpretative information is available in the Laboratory Services Policy Manual on the [facility] Intranet at: [email or web address]-intranet.[facility]/ Blood specimen (specimen) 02/01/2011 11:21 AM CDT 02/01/2011 11:57 AM CDT Adiel Manuel MD CHEMISTRY ORDERABLES [facility] CLIA# [id number] [address] [place] [address] documented in this encounter Visit Diagnoses Diagnosis Abdominal pain, other specified site Nausea Nausea alone documented in this encounter Care Teams Tissue Technologist Relationship Specialty Start Date End Date Bailey Hastings MD PCP - General 10/29/08 12/09/15 documented as of this encounter
--- OUTSIDE RECORDS SUMMARY | 2024-08-27 07:02 | XMS_ITS | Encounter Summary ---
Author Organization [facility] Address [address] [place] [address] Care Team Providers Care Freight Loader Name Role Phone Bailey Hastings MD Primary Care Provider Reason for Visit * Reason Onset Date Comments Results 01/25/2011 Encounter Details Date Type Department Care Team (Late st Contact Info) Description 01/25/2011 Telephone [facility] [address] [facility] [address] [address] Adiel Manuel MD [address] [facility] [address] [place] [address] Results Social History Tobacco Use Types Packs/Day [...] encounter Miscellaneous Notes * Telephone Encounter - Destiny Bonilla - 01/25/2011 1:45 PM CDT Mom called for bx results, per AN GERD and some allergy cells. Continue prevacid, f/u in 1 month. If sx continue will refer to allergy. Mom aware documented in this encounter Plan of Treatment Not on file documented as of this encounter Visit Diagnoses Not on filedocumented in this encounter Care Teams Freight Loader Relationship Specialty Start Date End Date Bailey Hastings MD PCP - General 10/29/08 12/09/15 documented as of this encounter
--- OUTSIDE RECORDS SUMMARY | 2024-08-27 07:02 | XMS_ITS | Encounter Summary ---
Author Organization [facility] Address [address] [place] [address] Care Team Providers Care Blocker Metal Base Name Role Phone Bailey Hastings MD Primary Care Provider Reason for Visit * Reason Onset Date Comments Head Lice 05/26/2011 Encounter Details Date Type Department Care Team (Late st Contact Info) Description 05/26/2011 Telephone [facility] [place] [id number] [place] [address] [address] [place] [address] Bailey Hastings MD [address] [facility] [address] [place] [address] Head Lice Social History Tobacco Use Types Packs/Day Years [...] * Telephone Encounter - Kiah Bonilla - 05/26/2011 2:27 PM CDT Dad calls stating that the girls have been exposed to head lice recently and now have very itchy scalps and he knows they have lice even though he has not visualized any live bugs or nits. Dad questions RX for lice therapy. Counseled dad on head lice treatment and cleaning up bedding etc. Dad is comfortable with the information given, care and call back parameters. documented in this encounter Plan of Treatment Not on file documented as of this encounter Visit Diagnoses Not on filedocumented in this encounter Care Teams Blocker Metal Base Relationship Specialty Start Date End Date Bailey Hastings MD PCP - General 10/29/08 12/09/15 documented as of this encounter
--- OUTSIDE RECORDS SUMMARY | 2024-08-27 07:02 | XMS_ITS | Encounter Summary ---
Author Organization [facility] Address [address] [place] [address] Care Team Providers Care Remote Ruby On Rails Developer Name Role Phone Bailey Hastings MD Primary Care Provider Reason for Visit * Reason Comments Advice Only skin tags bilateral underarms Encounter Details Date Type Department Care Team (Late st Contact Info) Description 01/05/2010 4:00 PM CDT Office Visit [facility] [address] [facility] [address] [address] Elva Manning MD NO ADDRESS ON FILE Achrochordon (Primary Dx) Social History Tobacco Use Types Packs/Day Years Used Date Smoking Tobacco: Never Assessed Sex and Gender Information Value Date Recorded Sex Assigned at Not on file Gender Identity Not on file Sexual Orientation Not on file documented as of this encounter Progress Notes * Elva Manning MD - 01/05/2010 4:31 PM CDT CC: Laura is a 9 y.o. female, accompanied by parents, who is seen for skin tags of both under arms. HPI: The tags were not present at . They appeared with the onset of puberty. There has been itching and some pain . There is a family history of skin tags in an older distant relative. She has tolerated dental work with local anesthesia. ROS: Outpatient prescriptions marked as taking for the 01/05/10 encounter (Office Visit) with ELVA MANNING Medication Sig Dispense Refill ??? inhalational spacing device (AEROCHAMBER MAX WITH FLOW-VU) Misc Inha by Misc.(Non-Drug; Combo Route) route. 1 Device 0 ??? albuterol (PROVENTIL,VENTOLIN) 90 mcg/Actuation Inhalation HFAA Take 2 Puffs by inhalation every 6 hours as needed for Other (See Comment). cough 1 Inhaler 1 ??? montelukast (SINGULAIR) 5 mg Oral Chew Take 1 Tab by mouth nightly as needed. 30 Tab 5 ??? PRILOSEC PO Take by mouth. She is allergic to apple juice. All additional items on the pediatric problem list, completed by mother, are negative except: asthma, strawberry birthmark. Residence: lives with their family. PE: On examination, she is moderately obese with age-appropriate affect. There are a bilateral axillary pedunculated tags without sinus tract, exudate or inflammation: right axilla - 1 tag ([id number]);left axilla - 3 tags ([id number], [id number], [id number]) Imp: Bilateral axillary acrochordons Plan: I have explained the difference between skin tags and warts, per parental request. Because of the history, physical exam and location, I recommend excision of the tag as an outpatient under local anesthesia due to patient???s age. I have discussed the risks and complications of surgery, among which are reaction to anesthesia, excessive bleeding, infection, unsightly scar, and permanent deformity. The parents understand and wish to proceed with excision pending clarification of insurance benefits. They are aware this might not be considered medically necessary and in such case a cost estimate will be sent to them. Follow-up: as needed. documented in this encounter Plan of Treatment Not on file documented as of this encounter Visit Diagnoses Diagnosis Achrochordon- Primary Unspecified hypertrophic and atrophic condition of skin documented in this encounter Care Teams Remote Ruby On Rails Developer Relationship Specialty Start Date End Date Bailey Hastings MD PCP - General 10/29/08 12/09/15 documented as of this encounter
--- OUTSIDE RECORDS SUMMARY | 2024-08-27 07:02 | XMS_ITS | Encounter Summary ---
Author Organization [employer] Address [address] [place] [address] Care Team Providers Care Audio Visual Aide Name Role Phone Bailey Hastings MD Primary Care Provider Reason for Visit * Reason Comments Headache since this am-nurse sent her home from [facility] med: allie Encounter Details Date Type Department Care Team (Late st Contact Info) Description 05/06/2010 1:30 PM CDT Office Visit [facility] [address] [facility] [place] [address] Grace Velázquez NP [address] [facility] [address] [place] [address] Pharyngitis (Primary Dx) Social History Tobacco Use Types Packs/Day Years Used Date Smoking Tobacco: Never Assessed Sex and Gender Information Value Date Recorded Sex Assigned at Not on file Gender Identity Not on file Sexual Orientation Not on file documented as of this encounter Last Filed Vital Signs Vital Sign Reading Time Taken Comments Blood Pressure - - Pulse - - Temperature 37.3 ??C (99.2 ??F) 05/06/2010 1:31 PM CD T Respiratory Rate - - Oxygen Saturation - - Inhaled Oxygen Concentration - - Weight 53.1 kg (117 lb) 05/06/2010 1:31 PM CDT Height - - Body Mass Index - - documented in this encounter Progress Notes * Grace Velázquez NP - 05/06/2010 1:35 PM CDT Chief Complaint Patient presents with ??? Headache since this am-nurse sent her home from school med: allie HPI: Patient woke up with headache this AM. Also complaining of sore throat and stomach ache. No cough or runny nose. No nausea or vomiting. No fever. Mom gave patient one aleve this AM. O: Eyes: Clear Ears: Both T.M.'s clear Nose: Clear Throat: No erythema Neck: Tender AC nodes, mobile, not enlarged Lungs: CTA Skin: no rash A: Pharyngitis P: Rapid strep: Negative. Send throat culture. Counseled mom likely viral illness. Supportive care,normal progression and call back reviewed. documented in this encounter Plan of Treatment Not on file documented as of this encounter Procedures Procedure Name Priority Date/Time Associated Diagnosis Comments POC RAPID STREP A ANTIGEN Routine 05/06/2010 1:47 PM CDT Pharyngitis documented in this encounter Results * STREPTOCOCCUS GROUP A CULTURE (05/06/2010 1:47 PM CDT) FINAL MICRO REPORT No Group A, C, or G beta Streptococcus isolated. [facility] Specimen of unknown material (specimen) SPECIMEN FROM THROAT / Unknown 05/06/2010 1:47 PM CDT 05/06/2010 5:43 PM CDT Comment:THROAT Grace Velázquez NP MICROBIOLOGY - GE NERAL ORDERABLES [facility] CLIA# [id number] [address] [place] [address] * POC RAPID STREP A (05/06/2010 1:47 PM CDT) RAPID STREP NEGATIVE [facility] Specimen from throat (specimen) 05/06/2010 1:47 PM CDT Grace Velázquez NP POINT OF CARE [facility] documented in this encounter Visit Diagnoses Diagnosis Pharyngitis- Primary Acute pharyngitis documented in this encounter Care Teams Audio Visual Aide Relationship Specialty Start Date End Date Bailey Hastings MD PCP - General 10/29/08 12/09/15 documented as of this encounter
--- OUTSIDE RECORDS SUMMARY | 2024-08-27 07:02 | XMS_ITS | Encounter Summary ---
Author Organization [facility] Address [address] [place] [address] Care Team Providers Care Information Manager Name Role Phone Bailey Hastings MD Primary Care Provider Reason for Visit * Reason Onset Date Comments Medication Refill 04/04/2011 Encounter Details Date Type Department Care Team (Late st Contact Info) Description 04/04/2011 Refill [facility] [place] [id number] [place] [address] [address] [place] [address] Bailey Hastings MD [address] [facility] [address] [place] [address] Cough (Primary Dx) Social History [...] Primary documented in this encounter Care Teams Information Manager Relationship Specialty Start Date End Date Bailey Hastings MD PCP - General 10/29/08 3 documented as of this encounter
--- OUTSIDE RECORDS SUMMARY | 2024-08-27 07:02 | XMS_ITS | Encounter Summary ---
Author Organization [employer] Address [address] [place] [address] Care Team Providers Care Manager Testing Name Role Phone Bailey Hastings MD Primary Care Provider Reason for Visit * Reason Onset Date Comments Restless Legs 09/29/2010 Encounter Details Date Type Department Care Team (Late st Contact Info) Description 09/29/2010 Telephone [facility] [address] [facility] [place] [address] Bailey Hastings MD [address] [facility] [address] [place] [address] Restless Legs Social History Tobacco Use Types Packs/Day Years Used Date Smoking Tobacco: Never Assessed Sex and Gender Information Value Date Recorded Sex Assigned at Not on file Gender Identity Not on file Sexual Orientation Not on file documented as of this encounter Miscellaneous Notes * Telephone Encounter - Bailey Hastings MD - 09/29/2010 4:32 PM COMPOSITE LAMINATOR Left message no answer. Could be restless legs, but i don't treat from this office b/c rare in kids. Would make appt with hans may[place] dr. At [facility]. She usually wants a ferritin leveldone beforehand. May need recquisition for that or for consult. Can call and talk to Lilli in our office whose daughter sees Dr. Castro for restless legs. OSITE LAMINATOR * Telephone Encounter - Christina Carlson - 09/29/2010 4:12 PM CST Mom called pt states the past few nights pt's legs have been very restless and seems like she is peddling a bike. Mom would like to speak with you to see if there is anything she can do for this or if you think she needs to be seen. OSITE LAMINATOR documented in this encounter Plan of Treatment Not on file documented as of this encounter Visit Diagnoses Not on filedocumented in this encounter Care Teams Manager Testing Relationship Specialty Start Date End Date Bailey Hastings MD PCP - General 10/29/08 12/09/15 documented as of this encounter
--- OUTSIDE RECORDS SUMMARY | 2024-08-27 07:02 | XMS_ITS | Encounter Summary ---
Author Organization [facility] Address [address] [place] [address] Care Team Providers Care Clerical Order Filler Name Role Phone Bailey Hastings MD Primary Care Provider Reason for Referral * Outpatient Services (Routine) - Closed Specialty Diagnoses / Procedures Referred By Inse borja Referred To Contact Diagnoses Abdominal pain, other specified site Nausea Procedures EGD Adiel Manuel MD [id number] [place] [address] Referral ID Status Reason Start Date Expiration Date Visits Re quested Visits Authorized [id number] Closed 01/18/2011 07/17/2011 1 1 * Outpatient Services (Routine) - Closed Specialty Diagnoses / Procedures Referred By Ines borja Referred To Contact Diagnoses Abdominal pain, other specified site Nausea Procedures NM HEPATOBIL W EJECT FRACTION Adiel Manuel MD [address] [facility] [address] [place] [address] Referral ID Status Reason Start Date Expiration Date Visits Re quested Visits Authorized [id number] Closed 01/18/2011 07/17/2011 1 1 Reason for Visit * Reason Comments Abdominal Pain Nausea Encounter Details Date Type Department Care Team (Late st Contact Info) Description 01/17/2011 2:00 PM CDT Office Visit [facility] [address] [facility] [address] [address] Adiel Manuel MD [address] [facility] [address] [place] [phone] Abdominal pain, other specified site; Nausea Social History Tobacco Use Types Packs/Day Years [...] Concentration - - Weight 59 kg (130 lb 1.1 oz) 01/17/2011 1:22 PM CDT Height 146 cm (4' 9.48 ) 01/17/2011 1:22 PM CDT Body Mass Index 27.68 01/17/2011 1:22 PM CDT Body Mass Index Percentile 97.42% 01/17/2011 1:2 2 PM CDT Growth Chart: [facility] (Girls, 2- 20 Years) documented in this encounter Progress Notes * Adiel Manuel MD - 01/17/2011 1:55 PM CDT HISTORY OF PRESENT ILLNESS Laura Finley, a 10 y.o. female. Abdominal Pain The current episode started more than 2 weeks ago. The pain is present in the epigastrium and periumbilical region. The pain radiates to the epigastrium and periumbilical region. The problem occurs intermittently. The problem has not changed since onset. The quality of the pain is described as cramping and burning. The pain is moderate. The symptoms are relieved by remaining still. The symptoms are aggravated by eating, coughing and an upright position. Associated symptoms include anorexia, sore throat, diarrhea, nausea, vomiting, headaches and constipation. Pertinent negatives include no fever and no rash. Recent Medical Care: has been to [facility] ED- CT and US abdomen-ve. Nausea The current episode started more than 2 weeks ago. The problem occurs intermittently. The problem has been gradually worsening. The problem is moderate. The symptoms are relieved by one or more prescription drugs (Zofran helps). Associated symptoms include abdominal pain, constipation, diarrhea, julia sea, vomiting, headaches and sore throat. Pertinent negatives include no fever, no muscle aches, noneck pain and no rash. FH- Gallbladder and pUD REVIEW OF SYSTEMS Review of Systems Constitutional: Negative for fever. HENT: Positive for sore throat. Negative for neck pain. Gastrointestinal: Positive for nausea, vomiting, abdominal pain, diarrhea and constipation. Points strongly to RUQ with pain Skin: Negative for rash. Neurological: Positive for headaches. PHYSICAL EXAM Ht 4' 9.48 (1.46 m) Wt 130 lb 1.1 oz (59 kg) BMI 27.68 kg/m2 Physical Exam Eyes: Pupils are equal, round, and reactive to light. Neck: Normal range of motion. Cardiovascular: Regular rhythm. Pulmonary/Chest: Effort normal. Abdominal: Soft. Bowel sounds are normal. Tenderness (RUQ) is present. Musculoskeletal: Normal range of motion. Neurological: She is alert. Skin: Skin is warm. ASSESSMENT and PLAN: Encounter Diagnoses 1. Abdominal pain, other specified site (789.09) NM HEPATOBIL W EJECT FRACTION, EGD, lansoprazole (PREVACID SOLUTAB) 30 mg Oral TbLD, COMPREHENSIVE METABOLIC PANEL, PROTIME-INR 2. Nausea (787.02A) NM HEPATOBIL W EJECT FRACTION, EGD, lansoprazole (PREVACID SOLUTAB) 30 mg Oral TbLD, COMPREHENSIVE METABOLIC PANEL, PROTIME-INR Agree with PMD pain localized to RUQ hints to a hepatobiliary system. Has very minscule transaminitis- will have to follow trend ? NAFLD vs. Other. Check the above and follow. Thank you for your kind consult, and please do not hesitate to call me with any further concerns. documented in this encounter Plan of Treatment Not on file documented as of this encounter Results * PROTIME-INR (02/01/2011 11:21 AM CDT) PROTIME 13.9 12.7 - 15.1 Seconds [facility] INR 1.0 0.9 - 1.1 [facility] Comment: INR Therapeutic Range: Adult: ?? 2.0 - 3.0 for pulmonary embolism or prophylaxis against venous ?thrombosis or systemic embolization. 2.0 - 3.0 for patients with tissue heart valves. 2.5 - 3.5 for patients with mechanical heart valves or post IL. Pediatric ??(12 years and under): 1.5 - [...] CDT Adiel Manuel MD HEMATOLOGY ORDERABLE S [facility] CLIA# [id number] [address] [place] [address] * (ABNORMAL) COMPREHENSIVE METABOLIC PANEL (02/01/2011 11:21 AM CDT) SODIUM 137 135 - 145 mmol/L [facility] POTASSIUM 3.9 3.5 - 4.9 mmol/L [facility] CHLORIDE 105 96 - 108 mmol/L [facility] CO2 24 22 - 30 mmol/L [facility] CALCIUM 9.6 8.8 - 10.8 mg/dL [facility] BUN 16 6 - 20 mg/dL [facility] CREATININE 0.53 0.44 - 0.68 mg/dL [facility] GLUCOSE 132(H) 60 - 110 mg/dL [facility] TOTAL PROTEIN 7.4 6.3 - 8.6 g/dL [facility] ALBUMIN 4.4 3.8 - 5.4 g/dL [facility] BILIRUBIN TOTAL 0.1(L) 0.2 - 1.0 mg/dL [facility] ALKALINE PHOSPHATASE 259 35 - 300 U/L [facility] AST 20 12 - 32 U/L [facility] ALT 31 0 - 31 U/L [facility] GFR, N/A:MDRD equation validated for pts. >18 yrs. >=60 mL/min/1 .7 sq meter [facility] GFR N/A:MDRD equation validated for pts. >18 yrs. >=60 mL/min/1 .7 sq meter [facility] Comment: GFR is calculated using the IDMS-Traceable Modification of Diet in Renal Disease (MDRD) Study formula and is only valid for patients 18 years or older. Further interpretative information is available in the Laboratory Services Policy Manual on the [facility] Intranet at: [email or web address] Blood specimen (specimen) 02/01/2011 11:21 AM CDT 02/01/2011 11:57 AM CDT Adiel Manuel MD CHEMISTRY ORDERABLES [facility] CLIA# [id number] [address] [facility] [place] [address] * NM HEPATOBIL W EJECT FRACTION (01/27/2011 [...] PROCEDURE: After injection with 5.4 mCi of [id number], the patient's abdomen was imaged dynamically in [...] PROCEDURE: After injection with 5.4 mCi of [id number], the patient's abdomen was imaged dynamically in [...] pain, other specified site Nausea Nausea alone Abdominal pain, other specified site Nausea Nausea alone Abdominal pain, other specified site Nausea Nausea alone documented in this encounter Care Teams Clerical Order Filler Relationship Specialty Start Date End Date Bailey Hastings MD PCP - General 10/29/08 12/09/15 documented as of this encounter
--- OUTSIDE RECORDS SUMMARY | 2024-08-27 07:02 | XMS_ITS | Encounter Summary ---
Author Organization [employer] Address [address] [place] [address] Care Team Providers Care Nutrition Educator Name Role Phone Bailey Hastings MD Primary Care Provider Reason for Visit * Reason Comments Abdominal Pain complains of right s brie pain-alot of stress in life lately/vomited this morning/wheezing-started last night No fever Meds-See Medication List Encounter Details Date Type Department Care Team (Late st Contact Info) Description 11/10/2009 9:45 AM ANODIC TREATER Office Visit [facility] [address] [facility] [place] [address] Bailey Hastings MD [address] [facility] [address] [place] [address] Cough (Primary Dx); Acute Pharyngitis Social History Tobacco Use Types Packs/Day Years Used Date Smoking Tobacco: Never Assessed Sex and Gender Information Value Date Recorded Sex Assigned at Not on file Gender Identity Not on file Sexual Orientation Not on file documented as of this encounter Last Filed Vital Signs Vital Sign Reading Time Taken Comments Blood Pressure - - Pulse - - Temperature 37.4 ??C (99.4 ??F) 11/10/2009 9:41 AM CS T Respiratory Rate - - Oxygen Saturation - - Inhaled Oxygen Concentration - - Weight 49 kg (108 lb) 11/10/2009 9:41 AM ANODIC TREATER Height - - Body Mass Index 25.1 11/09/2009 8:50 AM ANODIC TREATER Body Mass Index Percentile 96.70% 11/10/2009 9:4 1 AM ANODIC TREATER Growth Chart: CDC (Girls, 2- 20 Years) documented in this encounter Progress Notes * Kiah Bonilla - 11/10/2009 10:41 AM CSTAddended by: KIAH BONILLA on: 11/10/2009 Modules accepted: Orders IC TREATER * Kiah Bonilla - 11/10/2009 10:23 AM CST Results for orders placed in visit on 11/10/09 POC RAPID STREP A Component Value Range ??? RAPID STREP NEGATIVE NEG- IC TREATER * Bailey Hastings MD - 11/10/2009 10:11 AM CST Stomach hurts and vomited this a.m. Wheezing last night. No diarrhea. No fever. Just taking singulair, no inhaler at home. Temp(Src) 99.4 ??F (37.4 ??C) (Tympanic) Wt 48.988 kg (108 lb) Alert, No acute distress, non-toxic appearing Ears-clear tm's bilaterally Throat-clear, no tonsillar swelling, exudate Nose-no rhinorhea Chest-clear to auscultation bilaterally Heart-regular rate and rhythm , no murmur Skin- no rash 1. Wheezing-history of, at urgent care, and cough-refill inhaler with aerochamber, continue singulair and call in 2-3 days if not better and will try steroid course. 2. Abdominal pain-will follow. IC TREATER documented in this encounter Plan of Treatment Not on file documented as of this encounter Procedures Procedure Name Priority Date/Time Associated Diagnosis Comments POC RAPID STREP A ANTIGEN Routine 11/10/2009 Acute Pharyngitis documented in this encounter Results * STREPTOCOCCUS GROUP A CULTURE (11/10/2009 10:15 AM ANODIC TREATER) PRELIMINARY REPORT Pending [facility] FINAL REPORT No Group A, C, or G beta Streptococcus isolated. [facility] SPECIMEN FROM THROAT / Unknown 11/10/2009 10:15 AM ANODIC TREATER 11/10/2009 6:54 PM ANODIC TREATER Bailey Hastings MD MICROBIOLOGY - GENE RAL ORDERABLES [facility] CLIA# [id number] [address] [place] [address] * POC RAPID STREP A (11/10/2009) RAPID STREP NEGATIVE NEG PHYSICIA [facility] Specimen from throat (specimen) Bailey Hastings MD POINT OF CARE TESTI NG Performing Organization Address City/[facility]/ZIP Co de Phone Number [facility] documented in this encounter Visit Diagnoses Diagnosis Cough- Primary Acute pharyngitis documented in this encounter Care Teams Nutrition Educator Relationship Specialty Start Date End Date Bailey Hastings MD PCP - General 10/29/08 12/09/15 documented as of this encounter
--- OUTSIDE RECORDS SUMMARY | 2024-08-27 07:02 | XMS_ITS | Encounter Summary ---
Author Organization [employer] Address [address] [place] [address] Care Team Providers Care Tobacco Prevention Health Educator Name Role Phone Bailey Hastings MD Primary Care Provider [phone] Reason for Visit * Reason Comments Vomiting Vomiting x3days, 10 minutes after eating, about 3x's a day. DEL ANGEL as of yesterday. No other sx's. Meds: None. Encounter Details Date Type Department Care Team (Late st Contact Info) Description 12/22/2010 8:45 AM CDT Office Visit [facility] [address] [facility] [place] [address] Bailey Hastings MD [address] [facility] [address] [place] [address] Irritable bowel; Anxiety; Vomiting Social History Tobacco Use Types Packs/Day Years Used Date Smoking Tobacco: Never Assessed Sex and Gender Information Value Date Recorded Sex Assigned at Not on file Gender Identity Not on file Sexual Orientation Not on file documented as of this encounter Last Filed Vital Signs Vital Sign Reading Time Taken Comments Blood Pressure 122/58 12/22/2010 8:51 AM CDT Pulse - - Temperature 37 ??C (98.6 ??F) 12/22/2010 8:51 AM CDT Respiratory Rate - - Oxygen Saturation - - Inhaled Oxygen Concentration - - Weight 59.2 kg (130 lb 8 oz) 12/22/2010 8:51 AM CDT Height 149.9 cm (4' 11 ) 12/22/2010 8:51 AM CDT Body Mass Index 26.36 12/22/2010 8:51 AM CDT Body Mass Index Percentile 96.55% 12/22/2010 8:5 1 AM CDT Growth Chart: [facility] (Girls, 2- 20 Years) documented in this encounter Progress Notes * Bailey Hastings MD - 12/22/2010 9:19 AM CDT Per dad, Laura has always had a nervous stomach and had gerd as an . Also admits to parents she is stressed at times, usually about school. Pain is often better over the summer. This most recent episode started about 3 days ago with vomiting about 3 times per day. One day vomited more times than this, but was better yesterday on a bland diet. Denies constipation. Avoids milk products. No diarrhea or fever. Did have a headache yesterday. Alert, no distress Chest-clear Throat-clear Abdomen-some periumbilical and right sided tenderness, but no guarding or rebound tenderness 1. Abdominal pain/vomiting-likely in part due to stress/anxiety, ?irritable bowel. Will order zofran for vomiting and levsin for spasms. If not improved consider counselor for anxiety documented in this encounter Miscellaneous Notes * Patient Instructions - Bailey Hastings MD - 12/22/2010 9:04 AM CDT Please call if severe abdominal pain documented in this encounter Plan of Treatment Not on file documented as of this encounter Visit Diagnoses Diagnosis Irritable bowel Irritable bowel syndrome Anxiety Anxiety state, unspecified Vomiting Vomiting alone documented in this encounter Care Teams Tobacco Prevention Health Educator Relationship Specialty Start Date End Date Bailey Hastings MD PCP - General 10/29/08 12/09/15 documented as of this encounter
--- OUTSIDE RECORDS SUMMARY | 2024-08-27 07:02 | XMS_ITS | Encounter Summary ---
Author Organization [employer] [facility] Address [address] [place] [address] Care Team Providers Care Fleet Service Clerk Name Role Phone Bailey Hastings MD Primary Care Provider Encounter Details Date Type Department Care Team (Late st Contact Info) Description 07/12/2010 1:49 PM CDT - 07/12/2010 11:59 PM CDT Hospital Encounter [facility] [id number] [phone] [address] [facility] [address] [place] [address] Bailey Hastings MD [address] [facility] [address] [place] [address] Discharge Disposition: Home or Self [...] Name Priority Date/Time Associated Diagnosis Comments XR NASAL BONES Routine 07/12/2010 2:18 PM CDT Fall Face pain documented in this encounter Results * XR NASAL BONES [...] Diagnosis Fall Unspecified fall Face pain Headache documented in this encounter Care Teams Fleet Service Clerk Relationship Specialty Start Date End Date Bailey Hastings MD PCP - General 10/29/08 12/09/15 documented as of this encounter
--- OUTSIDE RECORDS SUMMARY | 2024-08-27 07:02 | XMS_ITS | Encounter Summary ---
Author Organization [employer] Address [address] [place] [address] Care Team Providers Care Compensation Advisor Name Role Phone Bailey Hastings MD Primary Care Provider Reason for Visit * Reason Comments Ear Pain L JAW AND EAR HURTS, SX 2-3 DAYS, NO FEVER, NO COLD SX, REG MEDS Encounter Details Date Type Department Care Team (Late st Contact Info) Description 12/07/2009 9:45 AM CDT Office Visit [facility] [address] [facility] [place] [address] Bailey Hastings MD [address] [facility] [address] [place] [address] Dental Abscess; Skin Tags Social History Tobacco Use Types Packs/Day Years Used Date Smoking Tobacco: Never Assessed Sex and Gender Information Value Date Recorded Sex Assigned at Not on file Gender Identity Not on file Sexual Orientation Not on file documented as of this encounter Last Filed Vital Signs Vital Sign Reading Time Taken Comments Blood Pressure - - Pulse - - Temperature 37.3 ??C (99.2 ??F) 12/07/2009 9:57 AM CD T Respiratory Rate - - Oxygen Saturation - - Inhaled Oxygen Concentration - - Weight 49.9 kg (110 lb) 12/07/2009 9:57 AM CDT Height - - Body Mass Index - - documented in this encounter Progress Notes * Bailey Hastings MD - 12/07/2009 10:05 AM CDT Bubble on gum , left ear pain, no fever. And some blisters on feet. Get red around toenails. Scrubs and uses tinactin. Skin tages in arm pit. Wants derm referral. Has dental appt tomorrow 3mm tender lump under left molar A few small skin colored skin tags left axilla Normal tm's Throat clear 1. Dental abscess-penicillin 2. Skin tags-non emergent referral to derm for removal-letter written documented in this encounter Plan of Treatment Not on file documented as of this encounter Visit Diagnoses Diagnosis Dental abscess Periapical abscess without sinus Skin tags Unspecified hypertrophic and atrophic condition of skin documented in this encounter Care Teams Compensation Advisor Relationship Specialty Start Date End Date Bailey Hastings MD PCP - General 10/29/08 12/09/15 documented as of this encounter
--- OUTSIDE RECORDS SUMMARY | 2024-08-27 07:02 | XMS_ITS | Encounter Summary ---
Author Organization [employer] Address [address] [place] [address] Care Team Providers Care Hand Brim Ironer Name Role Phone Bailey Hastings MD Primary Care Provider Encounter Details Date Type Department Care Team (Late st Contact Info) Description 06/08/2010 Abstract [facility] [address] [facility] [place] [address] Bailey Hastings MD [address] [facility] [address] [place] [address] Social History Tobacco Use Types [...] on filedocumented in this encounter Care Teams Hand Brim Ironer Relationship Specialty Start Date End Date Bailey Hastings MD PCP - General 10/29/08 3 documented as of this encounter
--- OUTSIDE RECORDS SUMMARY | 2024-08-27 07:02 | XMS_ITS | Encounter Summary ---
Author Organization [facility] Address [address] [place] [address] Care Team Providers Care Principal Biostatistician Name Role Phone Bailey Hastings MD Primary Care Provider Reason for Visit * Reason Comments Migraine started last night, vomited x1 this am, nose bleed this am, no fever, med: none Encounter Details Date Type Department Care Team (Late st Contact Info) Description 08/16/2011 10:00 AM HEMODIALYSIS PATIENT CARE SPECIALIST Office Visit [facility] [place] [address] [place] [address] [address] [place] [address] Bailey Hastings MD [address] [facility] [address] [place] [address] Headache; Vomiting Social History Tobacco Use Types Packs/Day [...] Sign Reading Time Taken Comments Blood Pressure 128/60 08/16/2011 9:55 AM HEMODIALYSIS PATIENT CARE SPECIALIST Pulse - - Temperature 37 ??C (98.6 ??F) 08/16/2011 9:55 AM HEMODIALYSIS PATIENT CARE SPECIALIST Respiratory Rate - - Oxygen Saturation - - Inhaled Oxygen Concentration - - Weight 68.5 kg (151 lb) 08/16/2011 9:55 AM HEMODIALYSIS PATIENT CARE SPECIALIST Height - - Body Mass Index - - documented in this encounter Progress Notes * Bailey Hastings MD - 08/16/2011 10:09 AM CST Headache yesterday and this morning. Vomited twice. Didn't take anything for headache yet this morning. Mild congestion. Has headaches usually weekly. No sore throat, no fever. Dad wonders if this could be anxiety also. This and the recurrent abdominal pain could be a manifestation of anxiety. Per dad sees a counselor. Thinks it is going okay. They have started introducing the idea of possible medication for anxiety BP 128/60 Temp(Src) 98.6 ??F (37 ??C) (Tympanic) Wt 68.493 kg (151 lb) Alert, No acute distress, non-toxic appearing Ears-clear tm's bilaterally Throat-clear, no tonsillar swelling, exudate Nose-no rhinorhea Chest-clear to auscultation bilaterally Heart-regular rate and rhythm , no murmur Skin- no rash 1. Headache (784.0) ibuprofen (MOTRIN) 600 mg Oral tablet 2. Vomiting (787.03) ondansetron (ZOFRAN ODT) 4 mg Oral TbDL 3. Anxiety?-if counselor would think Laura would require medication would refer to [facility] DIALYSIS PATIENT CARE SPECIALIST documented in this encounter Plan of Treatment Not on file documented as of this encounter Visit Diagnoses Diagnosis Headache(784.0) Headache Vomiting Vomiting alone documented in this encounter Care Teams Principal Biostatistician Relationship Specialty Start Date End Date Bailey Hastings MD PCP - General 10/29/08 12/09/15 documented as of this encounter
--- OUTSIDE RECORDS SUMMARY | 2024-08-27 07:02 | XMS_ITS | Encounter Summary ---
Author Organization [facility] Address [address] [place] [address] Care Team Providers Care Chip Applying Machine Tender Name Role Phone Bailey Hastings MD Primary Care Provider [phone] Reason for Visit * Reason Comments Shaking Complains of feeling shakey-x2 days/checked blood sugar with [employer]'s Glucometer and reading were 140-2 times and 150 last night No Fever Encounter Details Date Type Department Care Team (Late st Contact Info) Description 02/23/2011 2:30 PM CDT Office Visit [facility] [address] Office [place] [phone] Maddy Gandhi, ALFA [id number] [place] [address] [address] Sary (Primary Dx) Social History Tobacco Use Types [...] Reading Time Taken Comments Blood Pressure 118/74 02/23/2011 2:32 PM CDT Pulse - - Temperature 36.9 ??C (98.4 ??F) 02/23/2011 2:32 PM CD T Respiratory Rate - - Oxygen Saturation - - Inhaled Oxygen Concentration - - Weight 61.7 kg (136 lb) 02/23/2011 2:32 PM CDT Height 147.3 cm (4' 10 ) 02/23/2011 2:32 PM CDT Body Mass Index 28.42 02/23/2011 2:32 PM CDT Body Mass Index Percentile 97.80% 02/23/2011 2:3 2 PM CDT Growth Chart: [facility] (Girls, 2- 20 Years) documented in this encounter Progress Notes * Maddy Gandhi NP - 02/23/2011 2:39 PM CDT Chief Complaint Patient presents with ??? Shaking Complains of feeling shakey-x2 days/checked blood sugar with [employer]'s Glucometer and reading were 140-2 times and 150 last night No Fever Laura Finley is an 10 y.o. female who presents with c/o of shaky feelings. Mom concerns about diabetes. Has been check blood sugars at home 140 this morning without breakfast. Last evening BS 150 at 4 hours after eating. No recent history of weight loss, but increase thirst. Long history of stomach issues - IBS. History was provided by the mother, parent. BP 118/74 Temp(Src) 98.4 ??F (36.9 ??C) (Tympanic) Ht 58 (147.3 cm) Wt 61.689 kg (136 lb) BMI 28.42 kg/m2 Alert, No acute distress, non-toxic appearing Neuro: A&O x 3. Follow directions. PERRLA. Fundi -benign. Cran Nerves II-VII intact. Equal muscle strengths in all extermities. Rhomberg- neg. No shaking of extremities noted. Steady gait. Ears- Clear tm's bilaterally Throat- clear, no tonsillar swelling, exudate Nose- no rhinorrhea Chest- clear to auscultation bilaterally Heart- regular rate and rhythm , no murmur Abdomen- soft, non-tender and non-distended Skin- no rash Assessment Encounter Diagnoses 1. Sary (781.0AB) r/o hyperglycemia - diabetes Plan: Reassurance given. Discussed s/s of diabetes. Discussed getting Hbg A1c. Parents want to wait and monitor blood surgars at home for 1-2 weeks. Discussed increased excerise. Follow with GI: RE IBS medications. Call or return to clinic prn if these symptoms worsen or fail to improve. documented in this encounter Plan of Treatment Not on file documented as of this encounter Visit Diagnoses Diagnosis Shaky- Primary Abnormal involuntary movements documented in this encounter Care Teams Chip Applying Machine Tender Relationship Specialty Start Date End Date Bailey Hastings MD PCP - General 10/29/08 12/09/15 documented as of this encounter
--- OUTSIDE RECORDS SUMMARY | 2024-08-27 07:02 | XMS_ITS | Encounter Summary ---
Author Organization [facility] Address [address] [place] [address] Care Team Providers Care Deputy Head Name Role Phone Bailey Hastings MD Primary Care Provider Reason for Visit * Reason Onset Date Comments Acne 02/16/2011 Encounter Details Date Type Department Care Team (Late st Contact Info) Description 02/16/2011 Telephone [facility] [place] [id number] [place] [address] [address] [place] [address] Bailey Hastings MD [address] [facility] [address] [place] [address] Acne Social History Tobacco Use Types Packs/Day Years Used Date Smoking Tobacco: Never Assessed Alcohol Use Standard Drinks/Week Comments No 0 (1 standard drink = 0.6 oz pur e alcohol) Sex and Gender Information Value Date Recorded Sex Assigned at Not on file Gender Identity Not on file Sexual Orientation Not on file documented as of this encounter Miscellaneous Notes * Telephone Encounter - Gianluca Medina - 02/16/2011 1:25 PM CDT Mom picking up samples. * Telephone Encounter - Gianluca Medina - 02/16/2011 1:12 PM CDT Mom called stating pt has been with acne very bad lately, would like to know if she could have prescription for the Epiduo. If not should she make appt to be seen. documented in this encounter Plan of Treatment Not on file documented as of this encounter Visit Diagnoses Not on filedocumented in this encounter Care Teams Deputy Head Relationship Specialty Start Date End Date Bailey Hastings MD PCP - General 10/29/08 12/09/15 documented as of this encounter
--- OUTSIDE RECORDS SUMMARY | 2024-08-27 07:02 | XMS_ITS | Encounter Summary ---
Author Organization [employer] Address [address] [place] [address] Care Team Providers Care Family Coach Name Role Phone Bailey Hastings MD Primary Care Provider [phone] Encounter Details Date Type Department Care Team (Late st Contact Info) Description 12/02/2010 4:08 PM CDT - 12/02/2010 11:59 PM CDT Hospital Encounter [facility] [address] [place] [address] Grace Velázquez, INFORMATION SERVICES TECH [address] [facility] [address] [place] [address] Acute pharyngitis Discharge Disposition: Home or Self Care Social History Tobacco Use Types Packs/Day Years Used Date Smoking Tobacco: Never Assessed Sex and Gender Information Value Date Recorded Sex Assigned at Not on file Gender Identity Not on file Sexual Orientation Not on file documented as of this encounter Medications at Time of Discharge Medication Sig Dispensed Refills Start Date End Date ondansetron (ZOFRAN ODT) 4 mg Oral TbDLIndications:Vomiti ng Place 1 Tab under tongue every 6 hours as needed for Nausea. 10 Tab 0 11/16/2010 12/22/2010 montelukast (SINGULAIR) 10 mg Oral tablet Take [...] Diagnosis Comments STREPTOCOCCUS GROUP A CULTURE Routine 12/02/2010 4:14 PM CDT Acute pharyngitis documented in this encounter Results * STREPTOCOCCUS GROUP A CULTURE (12/02/2010 4:14 PM CDT) FINAL MICRO REPORT No Group A, C, or G beta Streptococcus isolated. [facility] Specimen of unknown material (specimen) SPECIMEN FROM THROAT / Unknown 12/02/2010 4:14 PM CDT 12/02/2010 4:20 PM CDT Comment:THROAT Grace Velázquez INFORMATION SERVICES TECH MICROBIOLOGY - [facility] ORDERABLES Performing Organization Address City/State/[facility] Co de Phone Number [facility] CLIA# [id number] [address] [place] [address] documented in this encounter Visit Diagnoses Diagnosis Acute pharyngitis documented in this encounter Care Teams Family Coach Relationship Specialty Start Date End Date Bailey Hastings MD PCP - General 10/29/08 12/09/15 documented as of this encounter
--- OUTSIDE RECORDS SUMMARY | 2024-08-27 07:02 | XMS_ITS | Encounter Summary ---
Author Organization [facility] Address [address] [place] [address] Care Team Providers Care Licensed Veterinary Technician Name Role Phone Bailey Hastings MD Primary Care Provider Reason for Visit * Reason Comments Abdominal Pain Obesity Constipation Encounter Details Date Type Department Care Team (Late st Contact Info) Description 02/01/2011 10:45 AM CDT Office Visit [facility] [address] [facility] [address] [address] Adiel Manuel MD [address] [facility] [address] [place] [id number] Abdominal pain, other specified site; Constipated; Obese Social History Tobacco Use Types Packs/Day Years [...] Sign Reading Time Taken Comments Blood Pressure 119/76 02/01/2011 10:49 AM CDT Pulse 90 02/01/2011 10:49 AM CDT Temperature - - Respiratory Rate - - Oxygen Saturation - - Inhaled Oxygen Concentration - - Weight 59.4 kg (130 lb 15.3 oz) 011 10:49 AM CDT Height 146 cm (4' 9.48 ) 02/01/2011 10: 49 AM CDT Body Mass Index 27.87 02/01/2011 10:49 AM CDT Body Mass Index Percentile 97.51% 02/01 10:49 AM CDT Growth Chart: [facility] (Girls, 2- 20 Years) documented in this encounter Progress Notes * Adiel Manuel MD - 02/01/2011 11:11 AM CDT Laura Finley is a 10 y.o. female Still with off and on pain in ruq upin qiesutioninng does have harder stools and when has not had BM, the pains seem to be worse Tried miralax- no help- made worse BP 119/76 Pulse 90 Ht 4' 9.48 (1.46 m) Wt 130 lb 15.3 oz (59.4 kg) BMI 27.87 kg/m2 Abdo: soft tender RUq RLQ no masees, owever obese young lady with difficult exam, CVA- NT Chest: CTAB CVS:RRR Encounter Diagnoses Name Primary? Abdominal pain, other specified site ??? Constipated ??? Obese Attemp clean out and softening and f/u 3 weeks, if lower pain and tenderness persist - Colonoscopy to evaluate further At f/u re check labs- esr and cmp At risk for NAFLD- REC intevention for weight Thank you for your kind consult, and please do not hesitate to call me with any further concerns. documented in this encounter Plan of Treatment Not on file documented as of this encounter Visit Diagnoses Diagnosis Abdominal pain, other specified site Constipated Unspecified constipation Obese Obesity, unspecified documented in this encounter Care Teams Licensed Veterinary Technician Relationship Specialty Start Date End Date Bailey Hastings MD PCP - General 10/29/08 12/09/15 documented as of this encounter
--- OUTSIDE RECORDS SUMMARY | 2024-08-27 07:02 | XMS_ITS | Encounter Summary ---
Author Organization [facility] Address [address] [place] [address] Care Team Providers Care Keno Attendant Name Role Phone Bailey Hastings MD Primary Care Provider [phone] Reason for Visit * Reason Onset Date Comments Results 02/15/2011 Encounter Details Date Type Department Care Team (Late st Contact Info) Description 02/15/2011 Telephone [facility] [address] [facility] [address] [address] Adiel Shelley MD [address] [facility] [address] [place] [id number] Results Social History Tobacco Use Types Packs/Day [...] encounter Miscellaneous Notes * Telephone Encounter - Karen Severino - 02/15/2011 2:34 PM CDT MOM CALLS TODAY FOR LAB RESULTS. PER DR SHELLEY, LABS ARE NORMAL, IF PAIN CONTINUES SHE WILL NEED FURTHER WORK UP. MOM AWARE AND UNDERSTANDS. documented in this encounter Plan of Treatment Not on file documented as of this encounter Visit Diagnoses Not on filedocumented in this encounter Care Teams Keno Attendant Relationship Specialty Start Date End Date Bailey Hastings MD PCP - General 10/29/08 12/09/15 documented as of this encounter
--- OUTSIDE RECORDS SUMMARY | 2024-08-27 07:02 | XMS_ITS | Encounter Summary ---
Author Organization [employer] Address [address] [place] [address] Care Team Providers Care Bridge Operator Slip Name Role Phone Bailey Hastings MD Primary Care Provider Encounter Details Date Type Department Care Team (Late st Contact Info) Description 01/15/2011 Abstract [facility] [address] [facility] [place] [address] Bailey Hastings MD [address] [facility] [address] [place] [address] Social History Tobacco Use Types [...] on filedocumented in this encounter Care Teams Bridge Operator Slip Relationship Specialty Start Date End Date Bailey Hastings MD PCP - General 10/29/08 3 documented as of this encounter
--- OUTSIDE RECORDS SUMMARY | 2024-08-27 07:02 | XMS_ITS | Encounter Summary ---
Author Organization [facility] Address [address] [place] [address] Care Team Providers Care Head Of Product Name Role Phone Bailey Hastings MD Primary Care Provider Reason for Visit * Outpatient Services (Routine) - Closed Specialty Diagnoses / Procedures Referred By Contac t Referred To Contact Diagnoses Abdominal pain, other specified site Nausea Procedures EGD Adiel Shelley MD [address] [facility] [address] [place] [address] Referral ID Status Reason Start Date Expiration Date Visits Re quested Visits Authorized [id number] Closed 01/18/2011 07/17/2011 1 1 Encounter Details Date Type Department Care Team (Latest Contact Info) Description 01/21/2011 7:42 AM CDT - 01/21/2011 9:16 AM CDT Hospital Encounter [facility] Pediatric Sedation [address] [place] [address] Adiel Shelley MD [id number] [place] [address] Discharge Disposition: Home or Self [...] Sign Reading Time Taken Comments Blood Pressure 120/79 01/21/2011 9:13 AM CDT Pulse 71 01/21/2011 9:13 AM CDT Temperature 36.2 ??C (97.2 ??F) 01/21/2011 8:53 AM CD T Respiratory Rate 20 01/21/2011 9:13 AM CDT Oxygen Saturation 100% 01/21/2011 9:13 AM CDT Inhaled Oxygen Concentration - - Weight 58.5 kg (129 lb) 01/21/2011 7:47 AM CDT Height - - Body Mass Index 27.45 01/17/2011 1:22 PM CDT Body Mass Index Percentile 97.26% 01/21/2011 7:4 7 AM CDT Growth Chart: [facility] (Girls, 2- 20 Years) documented in this encounter Discharge Instructions * Discharge Instructions* Gisel Elizabeth RN - 01/21/2011 8:57 AM CDT If your child should experience: Severe abdominal pain, chest pain, fever, chills, shortness of breath, inability to swallow, abnormal bleeding or any other concerns following your procedure. Call their physician or come to the Emergency Department. Please follow these instructions: 1. During your child's procedure your child may have received sedation. Some of the side effects ofthe medicine (s) may last for several hours and may be groggy, dizzy or irritable. Your child's balance may also be unsteady - play and activities should be supervised.Your child should rest at home for the remainder of the day. Your child should NOT drive or perform any activities that require a completely alert mind during this recovery period. 2. If your child had a colonoscopy, expect bowel habits to return to normal in 2-3 days. 3. If your child had an upper endoscopy, they may have a sore throat. They may try gargling with warm water or use Chloraseptic lozenges as needed. Once your child is fully alert and feel they can swallow without difficulty, they may have a light meal. Your child may then progress on to their usualdiet, unless otherwise instructed by your child's physician. 4. This includes your child's current and historical medications prescribed by their physician (s).Your child should continue current medications and add any newly prescribed during this visit. If you have questions, please call the physician who prescribed the medication. I have received a copy of the Discharge instructions provided with the After Visit Summary, and understand the plan of care. Patient or Responsible Libertarian Signature Date/Time RN Signature Date/Time documented in this encounter Medications at Time [...] mouth. 02/23/2011 documented as of this encounter Progress Notes * Folrence Barker - 01/21/2011 11:56 AM CDT Child Life services introduced to patient and family. Pt and Family verbalized an understanding of services. Pt is resting comfortably in bed - talkative and states that she is in no pain at this visit and loves to color animal pictures. Pt received comfort/diversion items appropriate to age. Oriented to snack areas to enjoy after test is complete. Pt and family informed of ways to contact Child Life for any needs that arise during their stay in the Test and Treatment Unit. Child Life will continue to follow during stay, to promote positive coping during hospital visit. CITLALLI Teague Time Study Statistician [facility] Test and Treatment * Rissa Oliveira RN - 01/20/2011 11:40 AM CDT Left message on recorder. Instructions given for arrival, parking and npo times for procedure scheduled 01-21-2011. documented in this encounter H&P Notes * Adiel Shelley MD - 01/21/2011 8:37 AM CDT I have reviewed the last H&P and examined the patient today and there are no changes to the office visit documented in this encounter Procedure Notes * Stl Scanning, [facility] - 01/25/2011 8:11 AM CDTAssociated Order(s): PROCEDURE PHOTOGRAPHS documented in this encounter OR Notes * OR Anesthesia - Stl Scanning, [facility] - 01/24/2011 7:57 AM CDT * OR Anesthesia - Susy Jacinto MD - 01/21/2011 9:22 AM CDT Phase II Postanesthesia Evaluation Including [facility] Modified Riya Score Patient seen and evaluated: RESPIRATORY FUNCTION: Respiration: able to breath and cough freely (01/21/11910) [2=able to breathe and cough freely, 1=dyspnea, limited breathing or tachypnea, 0=apnea or mechanicventilator] O2 Saturation: able to maintain O2 saturation greater than 92% on room air (01/21/11910) [2=able to maintain O2 saturation greater than 92% on room air, 1=needs O2 inhalation to maintain O2 saturation greater than 90%, 0=O2 saturation less than 90% even with O2 supplement] Resp: 20 (01/21/11912)SpO2: 100 % (01/21/11912) CARDIOVASCULAR FUNCTION: BP: 120/79 mmHg (01/21/11912) Circulation: BP within 20% of preanesthetic level (01/21/11910) [2=BP within 20% of preanesthetic level, 1=BP within 20-49% of preanesthetic level, 0=BP within 50%of preanesthetic level] MENTAL STATUS, NEURO, ACTIVITY: Consciousness: fully awake (01/21/11910) [2=fully awake, 1=arousable on calling, 0=not responding] Activity: able to move 4 extremities voluntarily or on command (01/21/11910) [2=able to move 4 extremities voluntarily or on command, 1=able to move 2 extremities voluntarily or on command, 0=unable to move extremities voluntarily or on command] Ambulation: able to stand up and walk straight, on ordered bedrest, or performing at patient's prior level of function (01/21/11910) [2=able to stand up and walk straight, on ordered bedrest, or performing at patient's prior level of function, 1=vertigo when erect, 0=dizziness when supine] TEMPERATURE: Temp: 97.2 ??F (36.2 ??C) (01/21/11 08) PAIN: Pain Rating: Rest: 6 (01/21/11753) Presence of Pain: complains of pain/discomfort (01/21/11753) Pain: pain free (01/21/11910) [2=pain free, 1=pain handled by oral medication, 0=pain requiring parenteral medication] NAUSEA AND VOMITING: Fasting/Feeding: able to drink fluids, ice chips or NPO (01/21/11910) [2=able to drink fluids, ice chips or NPO, 1=nauseated, 0=nausea and vomiting] POSTOPERATIVE HYDRATION: Intake/Output Summary (Last 24 hours) at 01/21/11922 Last data filed at 01/21/11911 Gross per 24 hour Intake 160 ml Output 0 ml Net 160 ml Urine Output: unable to void but comfortable (01/21/11910) [2=has voided, adequate urine output per device, or not applicable, 1=unable to void but comfortable, 0=unable to void and uncomfortable] WOUND: Dressing: dry and clean or not applicable (01/21/11910) [2=dry and clean or not aplicable, 1=wet, marked and not increasing, 0=growing area of wetness] [facility] Modified Riya Score: Score: 19 (01/21/11910) COMMENTS: No apparent Anesthesia related complications Susy Jacinto MD 01/21/2011 9:23 AM * Operative Report - Adiel Shelley MD - 01/21/2011 8:50 AM CDT Pranay Gonzalez 2000 CSN:[id number] 01/21/2011 Endoscopic Gastroduodenoscopy Procedure Note Referring Physician: Bailey Hastings MD Procedure: Endoscopic Gastroduodenoscopy with biopsy Indications: GERD and Epigastric pain, very localized RUQ ? Duodenal ulcer Sedation: per anesthesia . Procedure Details Informed consent was obtained for the procedure. The procedure and its risks,benefits, alternativesindications were discussed. Risks include but are not limited to bleeding perforation , aspiration and medical problems related to sedation. The Olympus gastroscope was inserted into the mouth and advanced under direct vision to second portion of the duodenum. A careful inspection was made as the gastroscope was withdrawn, including a retroflexed view of the proximal stomach; findings and interventions are described below. Appropriate photodocumentation was obtained. Findings: The mucuosa in the esophagus, stomach and small bowel appeared grossly normal without erythema, edema or change in vasculature . Complications: None; patient tolerated the procedure well. Impression: -Normal upper endoscopy, with no endoscopic evidence of neoplasia or mucosal abnormality., normal appearing upper endoscopy Recommendations: -Continue acid suppression., -Await pathology., -HIDA in 72 hours Adiel Shelley MD CC: Bailey Hastings MD * OR Anesthesia - Susy Jacinto MD - 01/21/2011 7:24 AM CDT Pediatric Pre-Anesthesia Evaluation - Long Form 01/21/2011 7:24 AM Name: Pranay Gonzalez Age: 10 y.o. Sex: female CSN: [id number] Procedure: EGD Surgeons/Assistants:Dr. Shelley Allergies Allergen Reactions ??? Apple Juice Nausea and Vomiting (Not in a hospital admission) Current outpatient prescriptions Medication Sig Dispense Refill ??? lansoprazole (PREVACID SOLUTAB) 30 mg Oral TbLD Take 1 Tab by mouth daily before breakfast. 30 Tab 1 ??? montelukast (SINGULAIR) 10 mg Oral tablet Take 10 mg by mouth daily at bedtime. ??? PRILOSEC PO Take by mouth. Patient Active Problem List Diagnoses Date Noted ??? Abdominal pain [789.00AP] 01/13/2011 ??? Allergic rhinitis [477.9AD] 01/06/2011 ??? Achrochordon [701.9T] 01/05/2010 Past Medical History Diagnosis Date ??? Diabetes ??? Asthma ??? Bowel disease No past surgical history on file. History Substance Use Topics ??? Smoking status: Not on file ??? Smokeless tobacco: Not on file ??? Alcohol Use: Not on file No family history on file. Previous Anesthesia Problems/Concerns: No anesthesia history - fam hx neg for MH History of PONV No Review of Systems Cardiovascular:Negative for SOB, irregular heart beats, diaphoresis, cyanosis or syncope. No known congenital heart disease. Respiratory: asthma, uses singulair daily, rescue inhaler about once weekly Gastroenterology: abd pain and nausea Other: obesity PHYSICAL EXAM There were no vitals taken for this visit. Weight: Height: Ht Readings from Last 1 Encounters: 01/17/11 57.48 (146 cm) (47.52%) BMI: There is no height or weight on file to calculate BMI. Airway: Normal facies/normal mandible, no known cervical instability.; Lungs: clear to auscultation bilaterally, normal respiratory effort Heart: regular rate and rhythm, without murmur/click,gallop/rub. Neuro: No obvious abnormality Vascular Access: Peripheral Line LABS Lab Results Component Value Date WBC 15.7* 01/13/2011 HEMOGLOBIN 11.8 01/13/2011 HEMATOCRIT 36.2 01/13/2011 PLATELETS 367* 01/13/2011 MCV 79.0 01/13/2011 Lab Results Component Value Date SODIUM 141 01/13/2011 POTASSIUM 4.4 01/13/2011 CHLORIDE 106 01/13/2011 CO2 23 01/13/2011 CALCIUM 10.0 01/13/2011 BUN 8 01/13/2011 CREATININE 0.53 01/13/2011 GLUCOSE 78 01/13/2011 No results found for this basename: INR, PT, PROTIMEPOC No results found for this basename: HCGURPOC, HCGQUALUR, HCGQUAL, HCGQUANT, HCGINTACT No results found for this basename: glucpoc EKG: EKG not indicated today. Other Studies/Considerations: None Postop pain management discussed yes Smoking/Tobacco Counseling: None Recommendations: None ASA Physical Status: ASA 2 - Patient with mild systemic disease with no functional limitations I have seen and examined this patient and confirm that all data is current and accurate. Yes Choice of Anesthesia/Anesthesia Plan: Proceed and General I have discussed the anesthetic options and the risks/benefits with the patient/family. Questions have been solicited and answered. Yes Susy Jacinto MD documented in this encounter Miscellaneous Notes * Scanned Form - Stl Scanning, [facility] - 01/24/2011 7:57 AM CDT * Scanned Form - Stl Scanning, [facility] - 01/24/2011 7:57 AM CDT * Patient Instructions - Stl Scanning, [facility] - 01/24/2011 7:57 AM CDT documented in this encounter Plan of Treatment Not on file documented as of this encounter Procedures Procedure Name Priority Date/Time Associated Diagnosis Comments PROCEDURE PHOTOGRAPHS 01/25/2011 8:11 AM CDT PATHOLOGY Routine 01/21/2011 10:29 AM CDT documented in this encounter Results * PROCEDURE PHOTOGRAPHS (01/25/2011 8:11 AM CDT) Narrative Transcriptions Stl Scanning, [facility] - 01/25/2011 8:11 AM CDT Provider Scanning PROCEDURE/MINOR SURG ICAL ORDERABLES * PATHOLOGY (01/21/2011 10:29 AM CDT) SURGICAL PATHOLOGY ?[facility] ?[address] ? [place], [place] ??[address] ? Patient: ??PRANAY GONZALEZ ? : ??2000 ? Procedure Date: ??01/21/2011 ? Accession Date: ??01/21/2011 ? Case No: ??[id number] ? Ordering Dr: ??ADIEL SHELLEY ? Case type SW is performed by [facility], [address], ? [place], [place] ??[address]; all other case types are performed by [facility] ? [facility], [address] [place], [place] ??[address] ?SURGICAL PATHOLOGY & NON-GYNECOLOGIC CYTOPATHOLOGY REPORT ? DIAGNOSIS ? SMALL INTESTINE, BIOPSY: ? - RARE STROMAL NEUTROPHILS (SEE MICROSCOPIC DESCRIPTION). ? STOMACH, BIOPSY: ? - CHRONIC GASTRITIS, MODERATE. ? ESOPHAGUS, BIOPSY: ? - VERY MILD ESOPHAGITIS, ASSOCIATED WITH RARE INTRAEPITHELIAL ? EOSINOPHILS (SEE MICROSCOPIC DESCRIPTION). ? Specimen Description: ? (1) Small bowel; (2) gastric; (3) esophagus. ? Operative Procedure: ? Esophagogastroduodenos copy. ? Patient Information/History/Di agnosis: ? (1) Small bowel Bx. Rule out sprue (chronic diarrhea and/or Fe-deficiency ? anemia); (2) Gastritis and rule out H. pylori infection; (3) rule out ? eosinophilic esophagitis. ? Gross: ? Three containers are received labeled Pranay Gonzalez. The first specimen ? is received in a container labeled small bowel. It consists of two pieces ? of herrera tissue each measuring less than 0.1 cm in greatest dimension. The ? specimen is submitted entirely labeled A1. ? The second specimen is received in a container labeled gastric biopsy ? stomach. It consists of a single piece of herrera tissue measuring 0.3 x 0.2 x ? 0.2 cm. The specimen is submitted entirely labeled B1. ? The third specimen is received in a container labeled esophagus. It ? consists of two pieces of translucent herrera tissue each measuring 0.1 cm in ? greatest dimension. The specimen is submitted entirely labeled C1. ? COLETTE/JOSE A 01.21.2011 12:14 pm ? Microscopic: ? Received are slides labeled [id number], Pranay Gonzalez. ? Sections of small bowel contain two poorly oriented pieces of small ? intestinal mucosa, showing rare stromal neutrophils. Intraepithelial and ? lamina propria inflammation otherwise do not appear significantly ? increased. Foveolar metaplasia and granulomas are not identified. ? Unequivocal villous blunting is also not noted. The finding of rare stromal ? neutrophils is of uncertain, if any, clinical significance. Clinical ? correlation is recommended. ? Sections of gastric contain a single piece of antral-type mucosa, showing ? moderate superficial chronic inflammation, scattered loosely formed ? lymphoid aggregates and moderate regenerative epithelial changes. Acute ? inflammation is inconspicuous. Intestinal (goblet cell) metaplasia is not ? identified. Organisms morphologically characteristic of Helicobacter pylori ? are also not appreciated on routine or on immunohistochemical stained ? sections. ? Sections of esophagus contain two pieces of squamous mucosa, showing very ? mild basal cell hyperplasia and spongiosis. Rare intraepithelial ? eosinophils are present, which do not exceed 1 per high-power field. These ? findings are non-specific. The intraepithelial eosinophil count does not ? quantitatively meet diagnostic criteria for eosinophilic esophagitis. Given ? the eosinophilic esophagitis is a patchy process, re-sampling may be of ? value if clinical suspicion persists. Alternatively, the above changes can ? be seen in gastroesophageal reflux disease. Clinical correlation is ? recommended. ? Note on use of immunocytochemistry reagents: This test was developed and ? its performance characteristic determined by [facility], Department of Laboratory Medicine. It has not been cleared or ? approved by the U.S. Food and Drug Administration. The FDA has determined ? that such clearance or approval is not necessary. The test is used for ? clinical purpose. It should not be regarded as investigational or for ? research. This laboratory is certified to perform high complexity clinical ? testing. ? STM/TMZ 01.24.2011 11:07 am ? Staging Form: ? No. ? ELECTRONIC SIGNATURE FOR MARIKA WOODRUFF M.D.- 01/25/11 09:[address] [facility] 01/21/2011 10:2 9 AM CDT Adiel Shelley MD PATHOLOGY/CYTOLOGY O RDERADANIEL Performing Organization Address City/State/[facility] Co de Phone Number [facility] CLIA# [id number] [address] [place] [address] documented in this encounter Visit Diagnoses Diagnosis Abdominal pain, other specified site Nausea Nausea alone documented in this encounter Active and Recently Administered Medications Care Teams Head Of Product Relationship Specialty Start Date End Date Bailey Hastings MD PCP - General 10/29/08 12/09/15 documented as of this encounter
--- OUTSIDE RECORDS SUMMARY | 2024-08-27 07:02 | XMS_ITS | Encounter Summary ---
Author Organization [facility] Address [address] [place] [address] Care Team Providers Care Soft Iron Inspector Name Role Phone Bailey Hastings MD Primary Care Provider Reason for Visit * Reason Comments Upper Respiratory Symptoms x 24hr, no fe radha, not much energy,went to er for sore throat last night, dx sore throat, med: ibuprofen Encounter Details Date Type Department Care Team (Late st Contact Info) Description 06/07/2011 10:30 AM CDT Office Visit [facility] [address] [id number] Bailey Hastings MD [address] [facility] [address] [place] [address] Acute pharyngitis (Primary Dx); Cough Social History Tobacco Use [...] Reading Time Taken Comments Blood Pressure 110/68 06/07/2011 10:23 AM CDT Pulse - - Temperature 37.1 ??C (98.8 ??F) 06/07/2011 10:23 AM C DT Respiratory Rate - - Oxygen Saturation - - Inhaled Oxygen Concentration - - Weight 66.2 kg (146 lb) 06/07/2011 10:23 AM CDT Height - - Body Mass Index - - documented in this encounter Progress Notes * Bailey Hastings MD - 06/07/2011 10:40 AM CDT Sore throat and cough. Sib sick with similar. No temperature. Poor energy level. Not wheezing. Takes singulair BP 110/68 Temp(Src) 98.8 ??F (37.1 ??C) (Tympanic) Wt 66.225 kg (146 lb) Alert, No acute distress, non-toxic appearing Ears-clear tm's bilaterally Throat-clear, no tonsillar swelling, exudate Nose-no rhinorhea Chest-clear to auscultation bilaterally Heart-regular rate and rhythm , no murmur Skin- no rash Cough-phenergan with codeine since keeping her awake at night * Komal Lara - 06/07/2011 10:37 AM CDT Results for orders placed in visit on 06/07/11 POC RAPID STREP A Component Value Range ? ? RAPID STREP Negative > NEG documented in this encounter Plan of Treatment Not on file documented as of this encounter Procedures Procedure Name Priority Date/Time Associated Diagnosis Comments POC RAPID STREP A ANTIGEN Routine 06/07/2011 Acute pharyngitis Cough documented in this encounter Results * STREPTOCOCCUS GROUP A CULTURE (06/07/2011 5:52 PM CDT) FINAL MICRO REPORT No Group A, C, or G beta Streptococcus isolated. [facility] Specimen of unknown material (specimen) SPECIMEN FROM THROAT / Unknown 06/07/2011 5:52 PM CDT 06/07/2011 6:04 PM CDT Comment:THROAT Bailey Hastings MD MICROBIOLOGY - [facility] ORDERABLES [facility] CLIA# [id number] [address] [place] [address] * POC RAPID STREP A (06/07/2011) RAPID STREP Negative NEG PHYSICIA [facility] OFFICE [facility] Specimen from throat (specimen) Bailey Hastings MD POINT OF CARE TESTI [facility] documented in this encounter Visit Diagnoses Diagnosis Acute pharyngitis- Primary Cough documented in this encounter Care Teams Soft Iron Inspector Relationship Specialty Start Date End Date Bailey Hastings MD PCP - General 10/29/08 3 documented as of this encounter
--- OUTSIDE RECORDS SUMMARY | 2024-08-27 07:02 | XMS_ITS | Encounter Summary ---
Author Organization [facility] [facility] Address [address] [place] [address] Care Team Providers Care Tallow Pumper Name Role Phone Baliey Hastings MD Primary Care Provider Encounter Details Date Type Department Care Team (Late st Contact Info) Description 01/13/2011 3:34 PM CDT - 01/13/2011 11:59 PM CDT Hospital Encounter [facility] Laboratory Services Yolanda Saucedo [id number] [address] [facility] [address] [place] [address] Grace Velázquez, ALFA [address] [facility] [address] [place] [address] Discharge Disposition: Home or Self [...] Associated Diagnosis Comments CBC WITH DIFFERENTIAL, PEDIATRIC Routine 01/13/2011 3:51 PM CDT Abdominal pain, other specified site C-REACTIVE PROTEIN Routine 01/13/2011 3: 51 PM CDT Abdominal pain, other specified site LIPASE Routine 01/13/2011 3:51 PM CDT Abdominal pain, other specified site AMYLASE Routine 01/13/2011 3:51 PM CDT Abdominal pain, other specified site COMPREHENSIVE METABOLIC PANEL Routine 01/13/2011 3:51 PM CDT Abdominal pain, other specified site documented in this encounter Results * COMPREHENSIVE METABOLIC PANEL (01/13/2011 3:51 PM CDT) SODIUM 140 135 - 145 mmol/L [facility] POTASSIUM 4.0 3.5 - 4.9 mmol/L [facility] CHLORIDE 105 96 - 108 mmol/L [facility] CO2 25 22 - 30 mmol/L [facility] CALCIUM 9.5 8.8 - 10.8 mg/dL [facility] BUN 9 6 - 20 mg/dL [facility] CREATININE 0.52 0.44 - 0.68 mg/dL [facility] GLUCOSE 82 60 - 110 mg/dL [facility] TOTAL PROTEIN 7.3 6.3 - 8.6 g/dL [facility] ALBUMIN 4.2 3.8 - 5.4 g/dL [facility] BILIRUBIN TOTAL 0.2 0.2 - 1.0 mg/dL [facility] ALKALINE PHOSPHATASE 264 35 - 300 U/L [facility] AST 19 12 - 32 U/L [facility] ALT 27 0 - 31 U/L [facility] GFR, N/A:MDRD equation validated for pts. >18 yrs. >=60 mL/min/1 .7 sq meter [facility] GFR N/A:MDRD equation validated for pts. >18 yrs. >=60 mL/min/1 .7 sq meter [facility] Comment: GFR is calculated using the IDMS-Traceable Modification of Diet in Renal Disease (MDRD) Study formula and is only valid for patients 18 years or older. Further interpretative information is available in the Laboratory Services Policy Manual on the [facility] Intranet at: http://[facility]-intranet.[facility]/ Blood specimen (specimen) 01/13/2011 3:51 PM CDT 01/13/2011 5:10 PM CDT Grace Velázquez NP CHEMISTRY ORDERAB LES Performing Organization Address [facility] Co de Phone Number [facility] CLIA# [id number] [address] [facility] [address] [place] [address] * LIPASE (01/13/2011 3:51 PM CDT) LIPASE 16 13 - 60 U/L [facility] Blood specimen (specimen) 01/13/2011 3:51 PM CDT 01/13/2011 5:10 PM CDT Grace Velázquez NP CHEMISTRY ORDERAB LES Performing Organization Address City/[facility]/ZIP Co de Phone Number [facility] CLIA# [id number] [address] [facility] [place] [address] * AMYLASE (01/13/2011 3:51 PM CDT) AMYLASE 30 28 - 100 U/L [facility] Blood specimen (specimen) 01/13/2011 3:51 PM CDT 01/13/2011 5:10 PM CDT Grace Cecilio Ianiri BIZTALK CONSULTANT CHEMISTRY ORDERAB LES Performing Organization Address City/[facility]/ZIP Co de Phone Number [facility] CLIA# [id number] [address] [place], [place] [address] * C-REACTIVE PROTEIN (01/13/2011 3:51 PM CDT) [facility] CRP 0.8 0.0 - 0.8 mg/dL [facility] Blood specimen (specimen) 01/13/2011 3:51 PM CDT 01/13/2011 5:10 PM CDT Grace Espananilesh BIZTALK CONSULTANT CHEMISTRY ORDERAB LES Performing Organization Address City/[facility]/ZIP Co de Phone Number [facility] CLIA# [id number] [address] [place] [address] * (ABNORMAL) CBC WITH DIFFERENTIAL, PEDIATRIC (01/13/2011 3:51 PM CDT) [facility] NRBC 0 <=0 /100 WBC [facility] WBC 13.2 4.5 - 13.5 K/uL [facility] RBC 4.48 4.00 - 5.20 M/uL [facility] HEMOGLOBIN 11.6 11.5 - 15.5 g/dL [facility] HEMATOCRIT 35.9 35.0 - 45.0 % [facility] MCV 80.1 77.0 - 95.0 fL [facility] MCH 25.9 24.0 - 30.0 pg [facility] MCHC 32.3 30.0 - 36.0 % [facility] PLATELETS 412(H) 140 - 350 K/uL [facility] MPV 11.6 9.3 - 12.4 fL [facility] RDW 14.3 11.5 - 14.5 % [facility] RDW-STDEV 41.3 37.1 - 48.7 fL [facility] NEUTROPHILS, SEG 59 36 - 74 % [facility] LYMPHOCYTES 35 18 - 53 % [facility] MONOCYTES 5 2 - 13 % [facility] EOSINOPHILS 1(L) 2 - 12 % [facility] BASOPHILS 0 0 - 3 % [facility] PLATELET EST. Consistent w/ count Normal [facility] NEUTROPHIL ABSOLUTE 7.79 K/uL [facility] LYMPHOCYTE ABSOLUTE 4.62 K/uL [facility] MONOCYTE ABSOLUTE 0.66 K/uL [facility] EOSINOPHIL ABSOLUTE 0.13 K/uL [facility] BASOPHILS ABSOLUTE 0.00 K/uL [facility] RBC MORPHOLOGY Normal Normal [facility] Blood specimen (specimen) 01/13/2011 3:51 PM CDT 01/13/2011 5:10 PM CDT Grace Velázquez BIZTALK CONSULTANT HEMATOLOGY ORDERA BLES [facility] CLIA# [id number] [address] [place] [address] documented in this encounter Visit Diagnoses Diagnosis Abdominal pain, other specified site documented in this encounter Care Teams Tallow Pumper Relationship Specialty Start Date End Date Bailey Hastings MD PCP - General 10/29/08 12/09/15 documented as of this encounter
--- OUTSIDE RECORDS SUMMARY | 2024-08-27 07:02 | XMS_ITS | Encounter Summary ---
Author Organization [facility] Address [address] [place] [address] Care Team Providers Care Electrical And Instrument Mechanic Name Role Phone Bailey Hastings MD Primary Care Provider Reason for Visit * Reason Onset Date Comments Erroneous encounter-disregard 02/15/2011 Encounter Details Date Type Department Care Team (Late st Contact Info) Description 02/15/2011 Refill [facility] [address] [facility] [address] [address] Adiel Manuel MD [address] [facility] [address] [place] [id number] Social History Tobacco Use Types Packs/Day Years [...] on filedocumented in this encounter Care Teams Electrical And Instrument Mechanic Relationship Specialty Start Date End Date Bailey Hastings MD PCP - General 10/29/08 3 documented as of this encounter
--- OUTSIDE RECORDS SUMMARY | 2024-08-27 07:03 | XMS_ITS | Encounter Summary ---
Author Organization [employer] Address [address] [place] [address] Care Team Providers Care Digital Ad Trafficker Name Role Phone Bailey Hastings MD Primary Care Provider Encounter Details Date Type Department Care Team (Late st Contact Info) Description 10/16/2009 Abstract [facility] [address] [facility] [place] [address] Bailey Hastings MD [address] [facility] [address] [place] [address] Social History Tobacco Use Types [...] on filedocumented in this encounter Care Teams Digital Ad Trafficker Relationship Specialty Start Date End Date Bailey Hastings MD PCP - General 10/29/08 3 documented as of this encounter
--- OUTSIDE RECORDS SUMMARY | 2024-08-27 07:03 | XMS_ITS | Encounter Summary ---
Author Organization [facility] Address [address] [place] [address] Care Team Providers Care Portable Power Tool Repairer Name Role Phone Magda Gregorio DO Primary Care Provider [phone] Encounter Details Date Type Department Care Team (Late st Contact Info) Description 02/05/2009 Outpatient Historical [facility] Bailey Arana MD [address] [facility] [address] [place] [address] Abdominal Pain, Unspecified Site Social History Tobacco Use Types Packs/Day Years Used Date Smoking Tobacco: Never Assessed Sex and Gender Information Value Date Recorded Sex Assigned at Not on file Gender Identity Not on file Sexual Orientation Not on file documented as of this encounter Plan of Treatment Not on file documented as of this encounter Procedures Procedure Name Priority Date/Time Associated Diagnosis Comments US ABDOMEN LIMITED Timed Study 02/05/2009 9: 30 AM CDT documented in this encounter Results * US ABDOMEN LIMITED (02/05/2009 9:30 AM CDT) Anatomical Region Laterality Modality Abdomen Other 02/05/2009 9:30 AM CDT Narrative 02/05/2009 1:02 PM CDT ? [facility] ? [address] ?[place] ??[address] ?Admit Date: 02/05/2009 ?LISA, PRANAY ?Sex: F ?Admit Prov: BAILEY ARANA ? Date: 2000 ?Primary Care Prov: BAILEY ARANA ?CMRN: [id number] ?[facility]: [facility] ? SSN: ? IMAGING SERVICES ?Ordering Prov: N/A ? Accession Number: [id number] ?Interpretation ? Examination: Ultrasound Abdomen Limited (Gallbladder and Liver) ? Clinical History: Abdominal pain. ? Findings: The liver is normal in size and echotexture without biliary ? dilation or distinct mass. The common hepatic duct measures 3 mm. ??The main ? portal vein is patent with hepatopetal blood flow. ??The hepatic veins are ? also patent. ? The gallbladder is normal in appearance without gallstones, gallbladder ? wall thickening, or pericholecystic fluid. The visualized portion of the ? pancreas is unremarkable. ? Impression: Normal ultrasound of the liver, gallbladder, pancreas, and ? biliary tree. ? . ? Dictated by: ??Eneida PAUL ? 02/05/2009 10:53 ? Electronically signed by: ??Eneida PAUL ? 02/05/2009 10:53 Procedure Note Everton Paul MD - 02/05/2009 [facility] [address] [place], [place] [address] Admit Date: 02/05/2009 PRANAY FINLEY Sex: F Admit Prov: BAILEY ARANA Date: 2000 Primary Care Prov: BAILEY ARANA CMRN: [id number] Room: REPLACED BY [facility] SSN: IMAGING SERVICES Ordering Prov: N/A Interpretation Examination: Ultrasound Abdomen Limited (Gallbladder and Liver) Clinical History: Abdominal pain. Findings: The liver is normal in size and echotexture withoutbiliary dilation or distinct mass. The common hepatic duct measures 3 mm.The main portal vein is patent with hepatopetal blood flow. The hepatic veinsare also patent. The gallbladder is normal in appearance without gallstones,gallbladder wall thickening, or pericholecystic fluid. The visualized portion ofthe pancreas is unremarkable. Impression: Normal ultrasound of the liver, gallbladder, pancreas,and biliary tree. . Dictated by: Eneida PAUL 02/05/2009 10:53 Electronically signed by: Eneida PAUL 02/05/2009 10:53 Bailey Arana MD ORDERABLES documented in this encounter Visit Diagnoses Diagnosis Abdominal pain, unspecified site documented in this encounter Care Teams Portable Power Tool Repairer Relationship Specialty [place] [address] [facility] [address] [place] [address] PCP - General Internal Medicine 10/14/22 documented as of this encounter
--- OUTSIDE RECORDS SUMMARY | 2024-08-27 07:03 | XMS_ITS | Encounter Summary ---
Author Organization [employer] Address [address] [place] [address] Care Team Providers Care Objects Conservator Name Role Phone Bailey Hastings MD Primary Care Provider Reason for Visit * Reason Comments Well Child CHECK MOLES UNDER AR M Encounter Details Date Type Department Care Team (Late st Contact Info) Description 10/29/2008 8:30 AM HISTOLOGIC TECHNICIAN Office Visit [facility] [address] [facility] [place] [address] Bailey Hastings MD [address] [facility] [address] [place] [address] Well Child Check (Primary Dx) Social History Tobacco Use Types Packs/Day Years Used Date Smoking Tobacco: Never Assessed Sex and Gender Information Value Date Recorded Sex Assigned at Not on file Gender Identity Not on file Sexual Orientation Not on file documented as of this encounter Last Filed Vital Signs Vital Sign Reading Time Taken Comments Blood Pressure 82/48 10/29/2008 8:30 AM HISTOLOGIC TECHNICIAN Pulse - - Temperature - - Respiratory Rate - - Oxygen Saturation - - Inhaled Oxygen Concentration - - Weight 41.3 kg (91 lb) 10/29/2008 8:30 AM HISTOLOGIC TECHNICIAN Height 132.1 cm (4' 4 ) 10/29/2008 8:30 AM HISTOLOGIC TECHNICIAN Body Mass Index 23.66 10/29/2008 8:30 AM HISTOLOGIC TECHNICIAN Body Mass Index Percentile 96.63% 10/29/2008 8:3 0 AM HISTOLOGIC TECHNICIAN Growth Chart: CDC (Girls, 2- 20 Years) documented in this encounter Progress Notes * Bailey Hastings MD - 10/29/2008 8:44 AM CST Subjective: History was provided by the father. Pranay Gonzalez is a 8 y.o. female who presents for this well child visit. Has some headaches, doesn't miss school. Hasn't had eyes checked. Current Issues: Current concerns include history of reflux as an infant-now treated with mylanta. Had chicken pox. Does patient sleep well? yes Review of Nutrition: Balanced diet? yes; eats meat, fruits and veggies Drinks milk? yes. Eats 2 servings of fruits or vegetables per day. Favorite food is watermelon. Social Screening: Difficulties with peer interaction? no Secondhand smoke exposure? no Concerns with school readiness?no School: Attends [employer]. Grade level=3rd. School performance is described as good. Sports and Activities: wants to play sports this summer. Objective: Filed Vitals: 10/29/2008 8:30 AM BP: 82/48 Height: 52 (132.1 cm) Weight: 41.277 kg (91 lb) Last 3 Encounter Wt Readings: Date Wt 10/29/2008 41.277 kg (91 lb) (93.91%) Last 3 Encounter Ht Readings: Date Ht 10/29/2008 52 (132.1 cm) (40.75%) Body mass index is 23.66 kg/(m^2). 97.25% of growth percentile based on BMI-for-age. 93.91% of growth percentile based on ggncri-ddt-xgr. 40.62% of growth percentile based on lnuvpnh-sbt-xcz. Growth parameters are noted and are appropriate for age. General: active, alert, cooperative, no distress, social Gait: normal Skin: dry, normal - no rash and well perfused, 4-5 molluscum left axilla, two in right Head normal appearance, normal palate, normal cephalic, [...] normal. No masses, no organomegaly : normal female Extremities: extremities normal, atraumatic, no cyanosis or [...] tone, no tremors, strength 5/5 Assessment: Healthy exam. Plan: 1. Anticipatory guidance: Adequate Sleep, Physical Activity, [place] Teeth, Encourage Expression, Healthy Meals and Snacks (Fruits, Vegetables, Grains, etc.) and Smoke detector, carbon monoxide detector, car seat/booster, Bike helmet, Feeding/nutrition, smoke free environment, safety proofing house/poisons, strangers, school 2. Laboratory screening a. PPD: no family member working with homeless , prisoners or in health care, no family members with TB: b. Hyperlipidemia screening: :screening not indicated at this visit and no family hx of HD less then 55, no family member with increased cholesterol 3. Immunizations today:please see the orders associated with this visit. History of previous adverse reactions to immunizations: no. 4. Hearing screening: please see visit summary for results of screening 5. Vision: please see visit summary for results of screening 6. Dental issues or referral:To dentist once every 6 mo. Encouraged to brush teeth every morning and evening. 7. Follow-up visit in one to two years. May return to office earlier if needed. 8. Headaches-have eyes checked. Keep headache diarrhea. 9. Molluscum-reassurance given as to benign nature. OLOGIC TECHNICIAN documented in this encounter Miscellaneous Notes * Patient Instructions - AidaCarol - 10/29/2008 8:50 AM CST Preadolescent Development 9 to 12 years 10/29/2008 BP 82/48 Ht 52 (132.1 cm) Wt 41.277 kg (91 lb) Body mass index is 23.66 kg/(m^2). 97.25% of growth percentile based on BMI-for-age. 93.91% of growth percentile based on mgnapw-lpr-jxo. 40.62% of growth percentile based on fqeapci-ihx-ajn. PHYSICAL DEVELOPMENT Physical growth and development varies considerably among this age group. These children may: ?? Have an appetite that fluctuates sharply Be energetic and high-spirited Favor active, highly charged games and sports Want to excel in sports and recreational skills Develop a greater interest in clothing and appearance Have a curiosity about drugs, alcohol and [...] These children may: ?? Become increasingly self-conscious Experience sudden dramatic emotional changes associated with puberty. SOCIAL DEVELOPMENT These children focus a great deal on socialization. They: ?? Want to talk, dress and act like their friends May sit and talk for long periods of time with friends May give in to peer pressure more readily Want parental assistance, but may resist offers of it Are critical of parents Are very aware of the opposite sex. NUTRITION A proper diet plays a very important role because of rapid growth during these years. The followingtips may help: ?? Fat intake should come from healthier foods such as cheese or yogurt. Try to limit junk food andfast food meals Keep the household supply of junk food such as candy, cookies and potato chips to a minimum Stock up on low-fat, healthy items for snacks such as fruit, raw vegetables, whole grain crackers and yogurt Include raw or cooked fruits and/or vegetables at meals even when school age children act disinterested. Their tastes are constantly changing. These foods can supply your child with important vitamins and minerals. SAFETY All children should wear seat belts [...] watching television, outside activities, homework and bedtime Communicate with your child Show interest in your child???s daily activities Show affection. This will contribute to your child???s self-esteem Understand the importance of serving as a parental role model Encourage age-appropriate independence and self-responsibility Know your child???s whereabouts at all times. Dosage Chart Acetaminophen (Children's Tylenol??) Weight Infant Drops 80 mg per dropperful (0.8mL) Children's Suspension 160 mg per teaspoon (5mL) Chewable Tablets (80 mg tablets) Jeremy Strength (160 mg tablets / capsules) 6 - 11 lbs. 0.4 mL (?? dropper) 12 - 17 lbs. 0.8 mL (1 dropper) ?? teaspoon 18 - 23 lbs. 1.2 mL (1?? droppers) ?? teaspoon 24 - 35 lbs. 1.6mL (2 droppers) 1 teaspoon 2 tablets 1 tablet / capsule 36 - 47 lbs. 1 ?? teaspoons 3 tablets 1 ?? tablets / capsules 48 - 59 lbs. 2 teaspoons 4 tablets 2 tablets / capsules 60 - 71 lbs. 2 ?? teaspoons 5 tablets 2 ?? tablets / capsules 72 - 95 lbs. 3 teaspoons 6 tablets 3 tablets / capsules Over 95 lbs. 4 teaspoons 8 tablets 4 tablets / capsules 96 lbs. and over - May use 2 regular strength (325 mg) adult tablets / capsules. Do not use aspirin in children during viral illnesses because of association with Sheryl's syndrome. Dosage Chart Children's Ibuprofen (Motrin/Advil) (Do NOT use below the age of 6 Months) AGE WEIGHT Pediatric Drops 50mg per 1.25mL Children???s Suspension 100mg per teaspoon (5mL) Chewable tablets LOW FEVER (More than 102??F - oral) HIGH FEVER (More than 102??F - oral) LOW FEVER (Less than 102??F - oral) HIGH FEVER (More than 102??F - oral) 50 mg 100 mg 6 - 11 months 13 - 17 lbs. 0.625 mL 1.25 mL ?? tsp ?? tsp 12 - 23 months 18 - 23 lbs. 1.25 mL [...] illnesses because of association with Sheryl's syndrome. [address] [address] [address] Joey Uribe,NUSRAT Velázquez,[employer] PRANAY GONZALEZ 2000 Immunization status: up to date and documented. Immunization History Administered Date(s) Administered ? ? DtaP Vaccine < 7 YO IM 1999, 01/18/2000, 03/26/2001, 04/18/2005 ??? Hepatitis A Vaccine Ped Adol IM 2 Dose 10/29/2008 ??? Hepatitis B Vaccine 01/13/2000, 07/03/2000, 03/26/2001 ??? MMR Vaccine SQ 12/22/2000, 04/15/2005 ??? Poliovirus IPV 1999, 01/13/2000, 03/26/2001, 04/18/2005 ??? Varicella Vaccine Live SQ 12/22/2000 Blood pressure 82/48, height 52 (132.1 cm), weight 41.277 kg (91 lb). THE ABOVE NAMED PATIENT WAS EXAMINED ON 10/29/2008 AND WAS FOUND TO BE IN GOOD PHYSICAL CONDITION AND MAY PARTICIPATE IN ALL ACTIVITIES INCLUDING SCHOOL ATHLETICS. COMMENTS: No primary provider on file. OLOGIC TECHNICIAN documented in this encounter Plan of Treatment Not on file documented as of this encounter Visit Diagnoses Diagnosis Well child check- Primary Routine infant or child health check documented in this encounter Care Teams Objects Conservator Relationship Specialty Start Date End Date Bailey Hastings MD PCP - General 10/29/08 12/09/15 documented as of this encounter
--- OUTSIDE RECORDS SUMMARY | 2024-08-27 07:03 | XMS_ITS | Encounter Summary ---
Author Organization [facility] Address [address] [place] [address] Care Team Providers Care Senior Operator Name Role Phone Bailey Hastings MD Primary Care Provider Encounter Details Date Type Department Care Team (Late st Contact Info) Description 07/17/2009 7:25 PM FIRE COORDINATOR - 07/17/2009 11:59 PM FIRE COORDINATOR Hospital Encounter [facility] Laboratory Support Services [facility] [employer] [address] [place] [address] Bailey Hastings MD [address] [facility] [address] [place] [address] Discharge Disposition: Home or Self [...] End Date amoxicillin (AMOXIL) 500 mg Oral TabIndications:Acute pharyngitis Take 1 Tab by mouth 3 times daily for 10 days. 30 Tab 0 07/17/2009 07/27/2009 PRILOSEC POIndications:Abdominal pain Take by mouth. 02/23/2011 documented as of this encounter Plan of Treatment Not on file documented as of this encounter Procedures Procedure Name Priority Date/Time Associated Diagnosis Comments STREPTOCOCCUS GROUP A CULTURE Routine 07/17/2009 10:15 AM FIRE COORDINATOR Acute Pharyngitis documented in this encounter Results * STREPTOCOCCUS GROUP A CULTURE (07/17/2009 10:15 AM FIRE COORDINATOR) PRELIMINARY REPORT Pending [facility] FINAL REPORT No Group A, C, or G beta Streptococcus isolated. [facility] SPECIMEN FROM THROAT / Unknown 07/17/2009 10:15 AM FIRE COORDINATOR 07/17/2009 9:43 PM FIRE COORDINATOR Bailey Hastings MD MICROBIOLOGY - [facility] ORDERABLES [facility] CLIA# [id number] [address] [place] [address] documented in this encounter Visit Diagnoses Diagnosis Acute pharyngitis documented in this encounter Care Teams Senior Operator Relationship Specialty Start Date End Date Bailey Hastings MD PCP - General 10/29/08 3 documented as of this encounter
--- OUTSIDE RECORDS SUMMARY | 2024-08-27 07:03 | XMS_ITS | Encounter Summary ---
Author Organization [facility] Address [address] [place] [address] Care Team Providers Care Air Conditioning Sheet Metal Installer Name Role Phone Bailey Hastings MD Primary Care Provider Encounter Details Date Type Department Care Team (Late st Contact Info) Description 10/05/2009 8:07 AM ADULT CARE PROVIDER - 10/05/2009 11:59 PM ADULT CARE PROVIDER Hospital Encounter [facility] Laboratory Services Yolanda Saucedo [phone] [facility] [address] [place] [address] Bailey Hastings MD [address] [facility] [address] [place] [address] Discharge Disposition: Home or Self Care Social History Tobacco Use Types Packs/Day Years Used Date Smoking Tobacco: Never Assessed Sex and Gender Information Value Date Recorded Sex Assigned at Not on file Gender Identity Not on file Sexual Orientation Not on file documented as of this encounter Medications at Time of Discharge Medication Sig Dispensed Refills Start Date End Date cefadroxil (DURICEF) 500 mg Oral capsuleIndications:Ingrow n toenail Take 1 Cap by mouth every 12 hours for 7 days. 14 Cap 0 10/02/2009 10/09/2009 PRILOSEC POIndications:Abdominal pain Take by mouth. 02/23/2011 documented as of this encounter Plan of Treatment Not on file documented as of this encounter Procedures Procedure Name Priority Date/Time Associated Diagnosis Comments GLUCOSE FASTING Routine 10/05/2009 8:21 AM ADULT CARE PROVIDER Polyuria documented in this encounter Results * GLUCOSE FASTING (10/05/2009 8:21 AM ADULT CARE PROVIDER) GLUCOSE FASTING 86 60 - 99 mg/dL [facility] Blood specimen (specimen) 10/05/2009 8:21 AM ADULT CARE PROVIDER 10/05/2009 2:08 PM ADULT CARE PROVIDER Bailey Hastings MD CHEMISTRY ORDERABLE S [facility] CLIA# [id number] [address] [place] [address] documented in this encounter Visit Diagnoses Diagnosis Polyuria documented in this encounter Care Teams Air Conditioning Sheet Metal Installer Relationship Specialty Start Date End Date Bailey Hastings MD PCP - General 10/29/08 12/09/15 documented as of this encounter
--- OUTSIDE RECORDS SUMMARY | 2024-08-27 07:03 | XMS_ITS | Encounter Summary ---
Author Organization [facility] Address [address] [place] [address] Care Team Providers Care Concrete Paver Name Role Phone Bailey Hastings MD Primary Care Provider Reason for Visit * Reason Onset Date Comments Results 02/06/2009 Encounter Details Date Type Department Care Team (Late st Contact Info) Description 02/06/2009 Telephone [facility] [employer] [facility] [address] [facility] [place] [address] Bailey Hastings MD [address] [facility] [place] [phone] Results Social History Tobacco Use Types Packs/Day Years Used Date Smoking Tobacco: Never Assessed Sex and Gender Information Value Date Recorded Sex Assigned at Not on file Gender Identity Not on file Sexual Orientation Not on file documented as of this encounter Miscellaneous Notes * Telephone Encounter - Bailey Hastings MD - 02/06/2009 9:11 AM CDT Called with results. Left a message for parent to call office back for results of gallbladder, liver ultrasound. documented in this encounter Plan of Treatment Not on file documented as of this encounter Visit Diagnoses Not on filedocumented in this encounter Care Teams Concrete Paver Relationship Specialty Start Date End Date Bailey Hastings MD PCP - General 10/29/08 12/09/15 documented as of this encounter
--- OUTSIDE RECORDS SUMMARY | 2024-08-27 07:03 | XMS_ITS | Encounter Summary ---
Author Organization [facility] Address [address] [place] [address] Care Team Providers Care Attendant Sales Name Role Phone Bailey Hastings MD Primary Care Provider Reason for Visit * Reason Comments Nail Problem LEFT GREAT TOENAIL L OOKS INFECTED, NOTICED ABOUT A WEEK AGO. ALOT OF DRAINAGE FROM AREA. SORE TO TOUCH, HARD TO WALK. MED:EPSON SALT SOAKS Encounter Details Date Type Department Care Team (Late st Contact Info) Description 10/02/2009 12:45 PM TRAVEL ASSISTANT [facility] [employer] [facility] [address] [facility] [place] [address] Bailey Hastings MD [address] [facility] [address] [place] [address] Ingrown Toenail; Polyuria Social History Tobacco Use Types Packs/Day Years [...] - Inhaled Oxygen Concentration - - Weight 48.5 kg (107 lb) 10/02/2009 12:39 PM TRAVEL ASSISTANT Height - - Body Mass Index - - documented in this encounter Progress Notes * Bailey Hastings MD - 10/02/2009 12:59 PM CST Left ingrown toenail, draining and painful. No fever. Wears well fitting shoes. Also athletes foot comes frequently Drinking a lot and urinating a lot. Left inner edge of toenail with swelling, tenderness and crusting Encounter Diagnoses Code Name Primary? Qualifier ??? 703.0B Ingrown Toenail Plan: CEFADROXIL 500 MG CAP ??? 788.42 Polyuria Plan: GLUCOSE FASTING EL ASSISTANT documented in this encounter Plan of Treatment Not on file documented as of this encounter Results * GLUCOSE FASTING (10/05/2009 8:21 AM TRAVEL ASSISTANT) GLUCOSE FASTING 86 60 - 99 mg/dL [facility] Blood specimen (specimen) 10/05/2009 8:21 AM TRAVEL ASSISTANT 10/05/2009 2:08 PM TRAVEL ASSISTANT Bailey Hastings MD CHEMISTRY ORDERABLE S [facility] CLIA# [id number] [address] [place] [address] documented in this encounter Visit Diagnoses Diagnosis Ingrown toenail Ingrowing nail Polyuria documented in this encounter Care Teams Attendant Sales Relationship Specialty Start Date End Date Bailey Hastings MD PCP - General 10/29/08 12/09/15 documented as of this encounter
--- OUTSIDE RECORDS SUMMARY | 2024-08-27 07:03 | XMS_ITS | Encounter Summary ---
Author Organization [employer] Address [address] [place] [address] Care Team Providers Care Rail Equipment Operator Name Role Phone Bailey Hastings MD Primary Care Provider Encounter Details Date Type Department Care Team (Late st Contact Info) Description 02/04/2009 Orders Only [facility] [employer] [facility] [address] [facility] [address] [place] [address] Provider, Historical Social History Tobacco Use Types Packs/Day Years Used Date Smoking Tobacco: Never Assessed Sex and Gender Information Value Date Recorded Sex Assigned at Not on file Gender Identity Not on file Sexual Orientation Not on file documented as of this encounter Plan of Treatment Not on file documented as of this encounter Visit Diagnoses Not on filedocumented in this encounter Care Teams Rail Equipment Operator Relationship Specialty Start Date End Date Bailey Hastings MD PCP - General 10/29/08 12/09/15 documented as of this encounter
--- OUTSIDE RECORDS SUMMARY | 2024-08-27 07:03 | XMS_ITS | Encounter Summary ---
Author Organization [employer] Address [address] [place] [address] Care Team Providers Care Social Service Manager Name Role Phone Bailey Hastings MD Primary Care Provider Encounter Details Date Type Department Care Team (Late st Contact Info) Description 02/06/2009 Abstract [facility] [employer] [facility] [address] [facility] [place] [address] Bailey Hastings MD [address] [facility] [address] [place] [address] Social History Tobacco Use Types [...] on filedocumented in this encounter Care Teams Social Service Manager Relationship Specialty Start Date End Date Bailey Hastings MD PCP - General 10/29/08 3 documented as of this encounter
--- OUTSIDE RECORDS SUMMARY | 2024-08-27 07:03 | XMS_ITS | Encounter Summary ---
Author Organization [employer] Address [address] [place] [address] Care Team Providers Care Malt House Kiln Operator Name Role Phone Bailey Hastings MD Primary Care Provider Reason for Visit * Reason Comments Sore Throat since yesterday morn ing/cough-since yesterday also/no fever Encounter Details Date Type Department Care Team (Late st Contact Info) Description 01/21/2009 9:30 AM CDT Office Visit [facility] [employer] [facility] [address] [facility] [place] [address] Zohra Uribe CPNP NO ADDRESS ON FILE Acute Pharyngitis (Primary Dx) Social History Tobacco Use Types Packs/Day Years Used Date Smoking Tobacco: Never Assessed Sex and Gender Information Value Date Recorded Sex Assigned at Not on file Gender Identity Not on file Sexual Orientation Not on file documented as of this encounter Last Filed Vital Signs Vital Sign Reading Time Taken Comments Blood Pressure - - Pulse - - Temperature 36.9 ??C (98.5 ??F) 01/21/2009 9:29 AM CD T Respiratory Rate - - Oxygen Saturation - - Inhaled Oxygen Concentration - - Weight 43.7 kg (96 lb 4 oz) 01/21/2009 9:29 AM C DT Height - - Body Mass Index - - documented in this encounter Progress Notes * Zohra Uribe NP - 01/21/2009 9:57 AM CDT Subject: Pt. Presents with c/o sore throat started yesterday, some nasal drainage, symptoms presentX 1 days. Drinking well, Appetite decreased. Worst complaint today sore throat. OBJECTIVE: She appears well, vital signs are as noted. Ears are normal. Throat and pharynx normal. Neck supple. No adenopathy in the neck. Nose is mildly congested. Mucus membrane reddened. The chest is clear, without wheezes or rales. Skin exam shows no rash. Child appears well hydrated and appropriate. ASSESSMENT: Encounter Diagnoses Code Name Primary? Qualifier ??? 462 Acute Pharyngitis Yes Plan: POC RAPID STREP A, STREPTOCOCCUS GROUP A CULTURE . PLAN: Return to Clinic Parent and/or patient is instructed to call or return if increasing difficulty breathing, worseningcough or fever or increased fussiness, pain or irritability. * 01/21/2009 9:39 AM CDT Results for orders placed in visit on 01/21/2009 POC RAPID STREP A Component Value Range ??? RAPID STREP Negative NEG- documented in this encounter Plan of Treatment Not on file documented as of this encounter Procedures Procedure Name Priority Date/Time Associated Diagnosis Comments STREPTOCOCCUS GROUP A CULTURE Routine 01/21/2009 5:19 PM CDT Acute Pharyngitis POC RAPID STREP A ANTIGEN Routine 01/21/2009 Acute Pharyngitis documented in this encounter Results * STREPTOCOCCUS GROUP A CULTURE (01/21/2009 5:19 PM CDT) PRELIMINARY REPORT Pending [facility] FINAL REPORT ? No Group A, C, or G beta Streptococcus isolated. ? [facility] Specimen from throat (specimen) SPECIMEN FROM THROAT / Unknown 01/21/2009 5:19 PM CDT 01/21/2009 7:29 PM CDT Zohra Uribe CPNP MICROBIOLOGY - G ENERAL ORDERABLES INTERFACE SYSTEM Refer to clinic/hospital department [facility] CLIA# [id number] [address] [place] [place] [address] * POC RAPID STREP A (01/21/2009) RAPID STREP Negative NEG [facility] Specimen from throat (specimen) Zohra Uribe CPNP POINT OF CARE TE [facility] documented in this encounter Visit Diagnoses Diagnosis Acute pharyngitis- Primary documented in this encounter Care Teams Malt House Kiln Operator Relationship Specialty Start Date End Date Bailey Hastings MD PCP - General 10/29/08 12/09/15 documented as of this encounter
--- OUTSIDE RECORDS SUMMARY | 2024-08-27 07:03 | XMS_ITS | Encounter Summary ---
Author Organization [employer] Address [address] [place] [address] Care Team Providers Care Md Psychiatry Name Role Phone Bailey Hastings MD Primary Care Provider Reason for Visit * Reason Onset Date Comments Other 11/17/2008 FLU SYMPTOMS Encounter Details Date Type Department Care Team (Late st Contact Info) Description 11/17/2008 Telephone [facility] [employer] [employer] [facility] [address] [facility] [place] [address] Bailey Hastings MD [address] [facility] [address] [place] [address] Other (FLU SYMPTOMS) Social History Tobacco Use Types Packs/Day Years Used Date Smoking Tobacco: Never Assessed Sex and Gender Information Value Date Recorded Sex Assigned at Not on file Gender Identity Not on file Sexual Orientation Not on file documented as of this encounter Miscellaneous Notes * Telephone Encounter - Bailey Hastings MD - 11/17/2008 4:32 PM CDT Ordered tamiflu, one tablet bid for 5 days for her to [facility]. * Telephone Encounter - 11/17/2008 4:18 PM CDT MOM CALLS BECAUSE SISTER WAS SEEN TODAY AND DIAGNOSED WITH THE FLU AND NOW PRANAY HAS FLU SX ALSOMOM STATES THAT YOU SAID YOU WOULD CALL OUT TAMIFLU FOR HER. SHE SAID WE COULD SEND IT TO [facility] [place] (THE PHARMACY IN THE SYSTEM) documented in this encounter Plan of Treatment Not on file documented as of this encounter Visit Diagnoses Diagnosis Influenza- Primary Influenza with other respiratory manifestations documented in this encounter Care Teams Md Psychiatry Relationship Specialty Start Date End Date Bailey Hastings MD PCP - General 10/29/08 12/09/15 documented as of this encounter
--- OUTSIDE RECORDS SUMMARY | 2024-08-27 07:03 | XMS_ITS | Encounter Summary ---
Author Organization [employer] Address [address] [place] [address] Care Team Providers Care Residential Program Director Name Role Phone Bailey Hastings MD Primary Care Provider Reason for Visit * Reason Comments Cough deep cough, sore thr oat- am, headache-4 days med: duricef Encounter Details Date Type Department Care Team (Late st Contact Info) Description 10/08/2009 9:30 AM ALL ROUND BUTCHER Office Visit [facility] [employer] [facility] [address] [facility] [place] [address] Grace Velázquez NP [address] [facility] [address] [place] [address] Acute Pharyngitis (Primary Dx) Social History Tobacco Use Types Packs/Day Years Used Date Smoking Tobacco: Never Assessed Sex and Gender Information Value Date Recorded Sex Assigned at Not on file Gender Identity Not on file Sexual Orientation Not on file documented as of this encounter Last Filed Vital Signs Vital Sign Reading Time Taken Comments Blood Pressure - - Pulse - - Temperature 37 ??C (98.6 ??F) 10/08/2009 9:20 AM ALL ROUND BUTCHER Respiratory Rate - - Oxygen Saturation - - Inhaled Oxygen Concentration - - Weight 49.2 kg (108 lb 8 oz) 10/08/2009 9:20 AM ALL ROUND BUTCHER Height - - Body Mass Index - - documented in this encounter Progress Notes * Grace Velázquez NP - 10/08/2009 9:42 AM CST Chief Complaint Patient presents with ??? Cough deep cough, sore throat- am, headache-4 days med: duricef HPI: Cough since 10/05 or 10/06, sometimes throws up with coughing. Woke this AM with headache and sore throat. No fever. On duricef for infected ingrown toenail, much better per mom. O: General: Alert, well nourished Eyes: Clear Ears: Both T.M.'s clear Nose: Mild congestion, clear drainage Throat: No erythema, drainage Neck: Tender AC nodes, not enlarged, mobile Lungs: CTA A: Pharyngitis, likely viral P: Rapid strep: Negative. No need to send culture since patient is currently on antibiotics. Counseled to complete duricef as prescribed. Counseled likely viral illness. Supportive care, normal progression and call back reviewed. Dehistine not covered by insurance. RX zyrtec 10 ml po daily for cough. ROUND BUTCHER documented in this encounter Plan of Treatment Not on file documented as of this encounter Procedures Procedure Name Priority Date/Time Associated Diagnosis Comments POC RAPID STREP A ANTIGEN Routine 10/08/2009 9:37 AM ALL ROUND BUTCHER Acute Pharyngitis documented in this encounter Results * POC RAPID STREP A (10/08/2009 9:37 AM ALL ROUND BUTCHER) RAPID STREP NEG [facility]G [facility] Specimen from throat (specimen) 10/08/2009 9:37 AM ALL ROUND BUTCHER Grace Velázquez NP POINT OF CARE [facility] Organization Address City/State/ZIP Co de Phone Number [facility] documented in this encounter Visit Diagnoses Diagnosis Acute pharyngitis- Primary documented in this encounter Care Teams Residential Program Director Relationship Specialty Start Date End Date Bailey Hastings MD PCP - General 10/29/08 12/09/15 documented as of this encounter
--- OUTSIDE RECORDS SUMMARY | 2024-08-27 07:03 | XMS_ITS | Encounter Summary ---
Author Organization [employer] Address [address] [place] [address] Care Team Providers Care Family Dentist Name Role Phone Bailey Hastings MD Primary Care Provider Reason for Visit * Reason Comments Fever xlast night stomach pain, sore throat Meds: None Encounter Details Date Type Department Care Team (Late st Contact Info) Description 10/22/2009 9:00 AM GENERAL MAINTENANCE ENGINEER Office Visit [facility] [employer] [employer] [facility] [address] [facility] [place] [address] Zohra Uribe CPNP NO ADDRESS ON FILE Acute Pharyngitis (Primary Dx); Viral Illness Social History Tobacco Use Types Packs/Day Years Used Date Smoking Tobacco: Never Assessed Sex and Gender Information Value Date Recorded Sex Assigned at Not on file Gender Identity Not on file Sexual Orientation Not on file documented as of this encounter Last Filed Vital Signs Vital Sign Reading Time Taken Comments Blood Pressure - - Pulse - - Temperature 36.9 ??C (98.4 ??F) 10/22/2009 9:03 AM CS T Respiratory Rate - - Oxygen Saturation - - Inhaled Oxygen Concentration - - Weight 49.9 kg (110 lb) 10/22/2009 9:03 AM GENERAL MAINTENANCE ENGINEER Height - - Body Mass Index - - documented in this encounter Progress Notes * Светлана Garg - 10/22/2009 9:25 AM CST Results for orders placed in visit on 10/22/09 POC RAPID STREP A Component Value Range ??? RAPID STREP negative NEG- RAL MAINTENANCE ENGINEER * Zohra Uribe NP - 10/22/2009 9:15 AM CST SUBJECT: Pt. Presents with c/o low grade fever, stomach pain @ umbilicus described as achy, sore throat. Feels better this am. Normal stool this am. No nasal drainage, symptoms present X 1 day. Drinking fair,Appetite decreased. Worst complaint today stomach ache. OBJECTIVE: She appears well, vital signs are as noted. Ears are normal. Throat and pharynx normal. Neck supple. No adenopathy in the neck. Nose is not congested. Mucus membrane pink. The chest is clear, withoutwheezes or rales. Abdomen soft and non distended. No discomfort with palpation. Able to jump up anddown. Skin exam shows no rash. Child appears well hydrated and appropriate. ASSESSMENT: Encounter Diagnoses Code Name Primary? Qualifier ??? 462 Acute Pharyngitis Yes Plan: POC RAPID STREP A, STREPTOCOCCUS GROUP A CULTURE ??? 079.99AQ Viral Illness PLAN: Return to Clinic Counseled on normal progression and symptomatic treatment. I If stomach pain worsens to return call to office. Counseled on mild diet. Mom comfortable. RAL MAINTENANCE ENGINEER documented in this encounter Plan of Treatment Not on file documented as of this encounter Procedures Procedure Name Priority Date/Time Associated Diagnosis Comments POC RAPID STREP A ANTIGEN Routine 10/22/2009 9:23 AM GENERAL MAINTENANCE ENGINEER Acute Pharyngitis documented in this encounter Results * STREPTOCOCCUS GROUP A CULTURE (10/22/2009 9:24 AM GENERAL MAINTENANCE ENGINEER) PRELIMINARY REPORT Pending [facility] FINAL REPORT No Group A, C, or G beta Streptococcus isolated. [facility] SPECIMEN FROM THROAT / Unknown 10/22/2009 9:24 AM GENERAL MAINTENANCE ENGINEER 10/22/2009 10:27 PM GENERAL MAINTENANCE ENGINEER Zohra SILVERIO MICROBIOLOGY - G ENERAL ORDERABLES [facility] CLIA# [id number] [address] [place] [address] * POC RAPID STREP A (10/22/2009 9:23 AM GENERAL MAINTENANCE ENGINEER) RAPID STREP negative NEG [facility] Specimen from throat (specimen) Zohra Uribe CPNP POINT OF CARE TE [facility] documented in this encounter Visit Diagnoses Diagnosis Acute pharyngitis- Primary Viral illness Unspecified viral infection, in conditions classified elsewhere and of unspecified site documented in this encounter Care Teams Family Dentist Relationship Specialty Start Date End Date Bailey Hastings MD PCP - General 10/29/08 12/09/15 documented as of this encounter
--- OUTSIDE RECORDS SUMMARY | 2024-08-27 07:03 | XMS_ITS | Encounter Summary ---
Author Organization [employer] Address [address] [place] [address] Care Team Providers Care Web Systems Developer Name Role Phone Bailey Hastings MD Primary Care Provider [phone] Reason for Visit * Reason Comments Abdominal Pain started yesterday wi th the pain-had a BM yesterday-just doesn't feel well-complains of pain to her right side/no fever Encounter Details Date Type Department Care Team (Late st Contact Info) Description 06/09/2009 9:15 AM CDT Office Visit [facility] [employer] [facility] [address] [facility] [place] [address] Bailey Hastings MD [address] [facility] [address] [place] [address] Abdominal Pain, Other Specified Site (Primary Dx) Social History Tobacco Use Types Packs/Day Years Used Date Smoking Tobacco: Never Assessed Sex and Gender Information Value Date Recorded Sex Assigned at Not on file Gender Identity Not on file Sexual Orientation Not on file documented as of this encounter Last Filed Vital Signs Vital Sign Reading Time Taken Comments Blood Pressure - - Pulse - - Temperature 37.4 ??C (99.3 ??F) 06/09/2009 8:52 AM CD T Respiratory Rate - - Oxygen Saturation - - Inhaled Oxygen Concentration - - Weight 47.2 kg (104 lb) 06/09/2009 8:52 AM CDT Height - - Body Mass Index - - documented in this encounter Progress Notes * Bailey Hastings MD - 06/09/2009 9:06 AM CDT Abdominal pain for 1 day. Hadn't pooped in 2 days. History of constipation in the past. Giving miralax every other day. Usually good results. No vomiting or diarrhea. Has a low grade temp this a.m. No sore throat, fever. Temp(Src) 99.3 ??F (37.4 ??C) (Tympanic) Wt 47.174 kg (104 lb) Alert, No acute distress, non-toxic appearing Ears-clear tm's bilaterally Throat-clear, no tonsillar swelling, exudate Nose-no rhinorhea Chest-clear to auscultation bilaterally Heart-regular rate and rhythm , no murmur Skin- no rash Abdomen-soft, non-tender and non-distended 1. Abdominal pain with history of constipation-try to do miralax every day. If still with pain in acouple of days send for KUB documented in this encounter Plan of Treatment Not on file documented as of this encounter Visit Diagnoses Diagnosis Abdominal pain, other specified site- Primary documented in this encounter Care Teams Web Systems Developer Relationship Specialty Start Date End Date Bailey Hastings MD PCP - General 10/29/08 12/09/15 documented as of this encounter
--- OUTSIDE RECORDS SUMMARY | 2024-08-27 07:03 | XMS_ITS | Encounter Summary ---
Author Organization [employer] Address [address] [address] Care Team Providers Care Research And Development Manager Name Role Phone Bailey Hastings MD Primary Care Provider Reason for Visit * Reason Comments Sore Throat HEADACHE ONSET YEST- SIB DX WITH POSITIVE STREP YEST Encounter Details Date Type Department Care Team (Late st Contact Info) Description 07/17/2009 9:45 AM SURGICAL SALES REPRESENTATIVE Office Visit [facility] [address] [place] [address] Bailey Hastings MD [address] [facility] [address] [place] [address] Acute Pharyngitis (Primary Dx) Social [...] Pressure - - Pulse - - Temperature 37.1 ??C (98.7 ??F) 07/17/2009 9:33 AM CS T Respiratory Rate - - Oxygen Saturation - - Inhaled Oxygen Concentration - - Weight 48.1 kg (106 lb) 07/17/2009 9:33 AM SURGICAL SALES REPRESENTATIVE Height - - Body Mass Index - - documented in this encounter Progress Notes * Bailey Hastings MD - 07/17/2009 9:57 AM CST Sore throat for one days, fever and headache. Sister seen here in office with +strep. No cough, cold symptoms. Temp(Src) 98.7 ??F (37.1 ??C) (Tympanic) Wt 48.081 kg (106 lb) Alert, No acute distress, non-toxic appearing Ears-clear tm's bilaterally Throat-+2 tonsils, red Nose-no rhinorhea Chest-clear to auscultation bilaterally Heart-regular rate and rhythm , no murmur Skin- no rash 1. Pharyngitis-strep screen negative but suspicious because sister with strep and not many uri symptoms. Will treat till culture back. ICAL SALES REPRESENTATIVE * Lani Florentino - 07/17/2009 9:46 AM CST Results for orders placed in visit on 07/17/09 POC RAPID STREP A Component Value Range ??? RAPID STREP NEGATIVE NEG- ICAL SALES REPRESENTATIVE documented in this encounter Plan of Treatment Not on file documented as of this encounter Procedures Procedure Name Priority Date/Time Associated Diagnosis Comments POC RAPID STREP A ANTIGEN Routine 07/17/2009 9:46 AM SURGICAL SALES REPRESENTATIVE Acute Pharyngitis documented in this encounter Results * STREPTOCOCCUS GROUP A CULTURE (07/17/2009 10:15 AM SURGICAL SALES REPRESENTATIVE) PRELIMINARY REPORT Pending [facility] FINAL REPORT No Group A, C, or G beta Streptococcus isolated. [facility] SPECIMEN FROM THROAT / Unknown 07/17/2009 10:15 AM SURGICAL SALES REPRESENTATIVE 07/17/2009 9:43 PM SURGICAL SALES REPRESENTATIVE Bailey Hastings MD MICROBIOLOGY - [facility] ORDERABLES [facility] CLIA# [id number] [address] [place] [address] * POC RAPID STREP A (07/17/2009 9:46 AM SURGICAL SALES REPRESENTATIVE) RAPID STREP NEGATIVE NEG [facility] Specimen from throat (specimen) Bailey Hastings MD POINT OF CARE TESTI [facility] documented in this encounter Visit Diagnoses Diagnosis Acute pharyngitis- Primary documented in this encounter Care Teams Research And Development Manager Relationship Specialty Start Date End Date Bailey Hastings MD PCP - General 10/29/08 12/09/15 documented as of this encounter
--- OUTSIDE RECORDS SUMMARY | 2024-08-27 07:03 | XMS_ITS | Encounter Summary ---
Author Organization [employer] Address [address] [place] [address] Care Team Providers Care Automatic Grinder Operator Name Role Phone Bailey Hastings MD Primary Care Provider Reason for Visit * Reason Comments Abdominal Pain R UPPER SIDE UNDER B REAST BONE, ? IMPACTED STOOL PER [facility], GAVE TORADOL IN ER FOR PAIN Encounter Details Date Type Department Care Team (Late st Contact Info) Description 02/03/2009 1:30 PM CDT Office Visit [facility] [address] [place] [address] Bailey Hastings MD [address] [facility] [address] [place] [address] Abdominal Pain (Primary Dx) Social History Tobacco Use Types [...] - - Temperature 37.4 ??C (99.4 ??F) 02/03/2009 1:41 PM CD T Respiratory Rate - - Oxygen Saturation - - Inhaled Oxygen Concentration - - Weight 43.5 kg (96 lb) 02/03/2009 1:41 PM CDT Height - - Body Mass Index - - documented in this encounter Progress Notes * Bailey Hastings MD - 02/03/2009 2:01 PM CDT Abdominal pain since this a.m. Sharp right upper quadrant pain. feels like someone is stabbing her. no vomiting or diarrhea. Mom worried because she had her gall bladder taken out at 19 years old. Given toradol in er. Pain slightly better. I spoke with Dr. Andersen in [facility]. Noted to have a fair amount of stool on an xray. labs were negative. Mom would like liver/gallbladder xray. No jaundice noted. Also mom notes no history of constipation in the past. Has been having normal stools 1-2 times per day. Alert, no distress Chest -clear Throat clear Abdomen-right upper quadrant tenderness, soft, non rigid, no guarding No jaundice 1. Right upper quadrant pain-likely from constipation but mom feels very strongly she needs a gall bladder ultrasound. Will order toradol for pain and gallbladder xray. documented in this encounter Plan of Treatment Not on file documented as of this encounter Visit Diagnoses Diagnosis Abdominal pain- Primary Abdominal pain, unspecified site documented in this encounter Care Teams Automatic Grinder Operator Relationship Specialty Start Date End Date Bailey Hastings MD PCP - General 10/29/08 12/09/15 documented as of this encounter
== END 2024-08-23 20:27 | disposition home or self-care (01) ==
PROVIDERS: Emergency Provider Family Medicine; PCP Family Medicine Sports Medicine
DX: K52.9 Noninfective gastroenteritis and colitis, unspecified (principal)
CPT/HCPCS: 36415; 74177; 80053; 81003; 81025; 83690; 85025; 99284; Q9967

== ENCOUNTER 2025-01-01 14:49 | Emergency (ER) | payer OTHER, BC, SELFPAY ==
[2025-01-01 14:56] VITALS: BP 122/60; PULSE 84; RESP 16; TEMP 36.5; O2SAT 99
--- NOTE | 2025-01-01 14:58 | ED_ITS ---
HPI - URI/Sore Throat General Chief Complaint: Upper Respiratory Infection Stated Complaint: Sore Throat/Nasal Congestion Time Seen by Provider: 01/01/25 15:11 History of Present Illness HPI Narrative: 24-year-old female presented for complaint of sore throat, nasal congestion and ear fullness. Onset yesterday. Denies cough, shortness of breath, wheezing nausea, vomiting, fevers or lethargy. Not taking anything. Currently 22 weeks gestation. Related Data Home Medications ?Medication ?Instructions ?Recorded ?Confirmed ?Last Taken ?Type metoprolol succinate 100 mg 150 mg PO DAILY 08/23/24 01/01/25 08/23/24 History tablet,extended release 24 hr esomeprazole magnesium 20 mg 20 mg PO DAILY 01/01/25 01/01/25 Unknown History capsule,delayed release (Nexium 24HR) nifedipine 30 mg tablet,extended mg PO 01/01/25 Unknown History release 24 hr sertraline 50 mg tablet mg 01/01/25 Unknown History Allergies Allergy/AdvReac Type Severity Reaction Status Date / Time No Known Allergies Allergy Verified 01/01/25 15:06 Review of Systems Review of Systems: [facility] Past Medical History Medical History SVT (supraventricular tachycardia) Surgical History Surgical History History of arthroplasty of right ankle Social History Social History Smoking status: Never smoker Alcohol intake: current Substance use: never Exam Narrative: GENERAL: well-appearing, no acute distress. EYES: conjunctivae clear ENT: Mucous membranes moist. TM pearly tidwell with normal light reflex bilaterally; no tragal tenderness. Oropharynx not erythematous without lesions. Tonsils not enlarged and without exudate. No drooling, no hoarseness, no trismus, uvula midline. No tripod positioning, hot potato voice, or soft palate swelling. NECK: Supple. No lymphadenopathy CHEST: Clear to auscultation, breath sounds equal. No respiratory distress, speaks in full sentences. HEART: Regular rate and rhythm. No murmur heard. SKIN: Warm, dry, no rash. NEURO: Alert and oriented x3. Course Course Emergency Course: Patient is aware of diagnosis, understands and agrees to treatment plan. Anticipatory guidance given. Patient agrees to follow-up as directed and is aware of reasons to seek care at the emergency department. Portions of this record may have been created with voice recognition software Level of Care: Express Care Visit MDM - URI/Sore Throat MDM Narrative Medical decision making narrative: neg strep result reviewed with pt. Advise supportive treatments. Patient is appropriate for outpatient treatment and follow-up. Differential Diagnosis Differential diagnosis: Likely upper respiratory infection, viral infection and pharyngitis Discharge Plan Discharge Clinical Impression: Upper respiratory infection Patient Disposition: Home Condition: Stable Instructions: Antibiotic Form, Upper Respiratory Infection (ED) Additional Instructions: Rapid strep swab was negative today You will be notified in a few days if the culture comes back positive for strep, and appropriate antibiotics will be called in at that time. if symptoms are due to a viral illness, it is not treated with antibiotics. Viral symptoms can be present for up to 10-14 days. Recommendations: Flonase spray and Zyrtec for sinus congestion Tylenol every 8 hours as needed for pain/fever Soft foods, cool liquids, warm tea. Gargle with warm saltwater twice a day. Chloraseptic spray and throat lozenges. Rest and stay hydrated. --Follow up with your PCP and Obgyn. --Go to the ER immediately if you cannot swallow your saliva, trouble breathing/wheezing, throat swelling, pain is persistent and severe Patient Language: [place] Korean Prescriptions: No Action metoprolol succinate 100 mg tablet extended release 24 hr 150 mg PO DAILY nifedipine 30 mg tablet extended release 24hr PO sertraline 50 mg tablet esomeprazole magnesium [Nexium 24HR] 20 mg capsule,delayed release(DR/EC) 20 mg PO DAILY Follow-up/Referrals: Flori,Albert Martinez MD [Primary Care Provider] - Stand Alone Forms: Work/School Release IP Time of Disposition: 15:19
[2025-01-01 15:14] LABS: EDSTREPNEGPOS1 Negative (Negative)
--- OUTSIDE RECORDS SUMMARY | 2025-01-01 16:53 | XMS_ITS | Encounter Summary ---
Author Organization [facility] Address [address] [place] [address] Care Team Providers Care Machine Setup Operator Name Role Phone Albert Ruby MD Primary Care Provider [phone] Tremayne Shi MD Unavailable [phone] Encounter Details Date Type Department Care Team (Late st Contact Info) Description 12/15/2021 [employer] Message Enc [facility] Family [facility] - [place] [address] [place] [address] Albert Ruby MD [address] [address] Medication refills Social History Tobacco Use Types [...] Information Value Date Recorded Sex Assigned at Female 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. [address] [place] [address] EP Director Of Physical Security CARDIOVASCULAR DISEASE 08/15/18 documented as of this encounter
--- OUTSIDE RECORDS SUMMARY | 2025-01-01 16:53 | XMS_ITS | Clinical Summary ---
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 Gender Identity Not on file Sexual Orientation Not on file Obstetrics History Last Filed Vital Signs Vital Sign Reading Time Taken Comments Blood Pressure 148/103 05/02/2023 12:55 PM CDT Pulse 106 05/02/2023 12:55 PM CDT Temperature 37 C (98.6 F) 05/02/2023 12:55 PM CDT Respiratory Rate 18 [...] 04/18/2005, Additional history exists Covid-19 Vaccine (3 - 2023-2 5 season) 2024 05/13/2021, 02/23/2021 Influenza Vaccine (#1) 2024 , 06/05/2020, 05/12/2020, Additional history exists Hepatitis B Screening Completed 03/26/2001 , 03/26/2001, 12/22/2000, Additional history exists Pneumococcal vaccine <65 Completed 001, 07/03/2000, 01/18/2000 Varicella Vaccines Completed 04/15/2005, 0 12/22/2000, 12/22/2000 HPV Vaccines Completed 05/01/2013, 04/12, 08/22/2011, Additional history exists Insurance [facility] Lust have it! CHOICE BLUE ACC CHOICE [facility] ACCESS CHOICE [employer] OPEN ACCESS Care Teams Dungeon Master Relationship Specialty Start Date End Date Unknown, Notinfile PCP - General 05/02/23
--- OUTSIDE RECORDS SUMMARY | 2025-01-01 16:53 | XMS_ITS | Encounter Summary ---
Author Organization [facility] Address [address] [place] [address] Care Team Providers Care Outpatient Coder Name Role Phone Albert Ruby MD Primary Care Provider [phone] Tremayne Shi MD Unavailable [phone] Reason for Visit * Reason Onset Date Comments Appointment Request 06/30/2021 Encounter Details Date Type Department Care Team (Late st Contact Info) Description 06/30/2021 [employer] Message Enc [facility] [address] [place] [address] Tremayne Shi MD [facility]. 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 documented in this encounter Plan of Treatment Not on file documented as of this encounter Visit Diagnoses Not on filedocumented in this encounter Additional Health Concerns Infection Onset Date Last Indicated Resolved Time COVID-19 Rule Out 10/02/2024 10/02/2024 10/02/2024 10:45 AM GAME FARM HELPER Assessment Noted Time PHQ-9 Depression Total Score: 8 06/17/20 21 1:36 PM CDT documented as of this encounter Care Teams Outpatient Coder Relationship Specialty Start Date End Date Albert Ruby MD [address] [place] [address] PCP - General FAMILY PRACTICE 05/16/18 Tremayne Shi MD [address] [place], [place] [address] EP Low Pressure Firer CARDIOVASCULAR DISEASE 08/15/18 documented as of this encounter
--- OUTSIDE RECORDS SUMMARY | 2025-01-01 16:53 | XMS_ITS | Encounter Summary ---
Author Organization [facility] Address [address] [place] [address] Care Team Providers Care Chargeback Specialist Name Role Phone Magda Gregorio DO Primary Care Provider [phone] Encounter Details Date Type Department Care Team (Late st Contact Info) Description 02/05/2009 Outpatient Historical [facility] Bailey Arana MD [address] 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 Findings: The liver is normal in size and echotexture without biliary dilation or distinct mass. The common hepatic duct measures 3 mm. The main portal vein is patent with hepatopetal blood flow. The hepatic veins are also patent. The gallbladder is normal in appearance without gallstones, gallbladder wall thickening, or pericholecystic fluid. The visualized portion of the pancreas is unremarkable. Impression: Normal ultrasound of the liver, gallbladder, pancreas, and biliary tree. . Dictated by: Eneida PAUL 02/05/2009 10:53 Electronically signed by: Eneida PAUL 02/05/2009 10:53 Procedure Note Everton Paul MD - 02/05/2009 [address] [place], [place] [address] Admit Date: 02/05/2009 PRANAY GONZALEZ Sex: F Admit Prov: BAILEY ARANA Date: 2000 Primary Care Prov: BAILEY ARANA CMRN: [id number] Room: [facility] SSN: IMAGING SERVICES Ordering Prov: N/A Interpretation [...] PAUL 02/05/2009 10:53 Bailey Arana MD ORDERABLES Final Resul t documented in this encounter Visit Diagnoses Diagnosis Abdominal pain, unspecified site documented in this encounter Care Teams Chargeback Specialist Relationship Specialty [place] [address] [facility] [address] [place] [address] PCP - General Internal Medicine 10/14/22 documented as of this encounter
--- OUTSIDE RECORDS SUMMARY | 2025-01-01 16:53 | XMS_ITS | Data Portability ---
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 Pt sees Dr. Ruby as PCP. [email or web address] Not available 01/12/2024 20:29:32 Plan of Treatment Reminders Order Date Submit Date Provider Last Modified By Organization Details Last Modified Time Details Appointments None recorded. Lab HIV 1 + 2, meaningfu l use set 2023 024 [facility], [address] [place] [address], [place] [address], [place], [address], 4 06:19:29 RPR (rapid plasma reagin), serum 2023 024 [facility], [address] [place] [address], [address], [place], [address], 4 06:19:28 HBsAg (hepatiti s B surface Ag), EIA, serum 2023 024 [facility], [address] [place] [address], [facility] [address], [place], [address], 4 06:19:27 Hepatitis C IgG Ab, qual, serum 2023 024 [facility], [address] [facility], [address], [place], [address], 4 06:19:27 vaginal pathogens panel, BORIS+probe , vaginal fluid 2023 [facility], [address], [place], [address], 4 06:17:53 cytology report, thin prep, smear or scraping, cervical or vaginal 2023 024 [facility], [address], [place], [address], 4 11:10:00 Referral None recorded. Procedures removal, implantab le contracep tive (PROC) 2023 024 steve Sweeney MD, [address] [facility] , [address], [place], [address], 4 09:11:16 insertion , implantab le contracep tive (PROC) 2023 024 MARIELA-830 Debra Dow MD, 4 [facility] , [address], [place], [address], 4 02:31:57 Surgeries None recorded. Imaging None recorded. Medication Orders Tri-Lo-Mi li 0.18 mg/0.215 mg/0.25 mg-0.025 mg tablet 2023 024 [facility], [address] [facility], [place], [address], 4 16:38:57 Nexplanon 68 mg subdermal implant 2023 024 steve Not available 11:29:15 Patient TargetsNo targets recorded. Patient Instructions Encounter Date Encounter Id Patient Instructions Last Modified By Organization Details Last Modified Time 01/10/2024 [id number] Attending Physician Addendum I did not personally see or examine the patient with the resident. I was physically present to provide indirect supervision through entire encounter. I have reviewed the documentation and agree with the history, physical findings, work-up, and medical decision making as recorded. Chayito Solares MD [email or web address] Not available 01/22/2024 15:55:37 02/29/2024 [id number] On the date of this encounter, I was immediately available to assist the resident/fellow in the care of the patient, and have reviewed and agree with the resident s findings and plan of care. MD Venecia [email or web address] Not available 02/29/2024 15:23:06 07/26/2024 [id number] Attending Physician Attestation I was physically present during the entire procedure and provided direct supervision throughout procedure duration. I personally saw and examined the patient with the resident. I have reviewed the documentation and agree with the history, physical findings, work-up, and medical decision making as recorded. Kaleb Brown MD [email or web address] Not available 07/30/2024 13:01:10 Reason for Referral None Reported. Results Created Date Observation Date Name Description Value Unit Range Abnormal Flag Note LastModifiedBy Organization Detail LastModifiedTime 01/10/20 24 01/11/2024 INTER PRETA TION: interpretati on: Commen t Not infec adeline with HCV unles s early or acute infec tion is suspe cted (whic h may be delay ed in an immun ocomp romis ed indiv idual ), or other evide nce exist s to indic ate HCV infec tion. Not Available [facility] ([facility]) [address] [facility], [place], [address], 01/11/2024 06:19:26 01/10/2001/11/2024 HCV ANTIB CHESTER RFX TO QUANT PCR HCV Ab Non Reacti ve nonrea ctive Not Available [facility] ([facility]) [address] [facility], [place], [address], 01/11/2024 06:19:27 01/10/2001/11/2024 HBSAG SCREE N HBsAg screen Negati ve negati ve Not Available [facility] ([facility]) [address] [facility], [place], [address], 01/11/2024 06:19:27 01/10/20 24 01/11/2024 RPR, RFX QN RPR/C ONFIR M TP RPR Non Reacti ve nonrea ctive Not Available [facility] ([facility]) [address] [place], [address], 01/11/2024 06:19:28 01/10/20 24 01/11/2024 HIV AB/P2 4 AG WITH REFLE X HIV Ab/P24 Ag screen Non Reacti ve nonrea ctive HIV Negat carri HIV-1 /HIV- 2 antib odies and HIV-1 p24 antig en were NOT detec adeline. There is no labor atory evide nce of HIV infec tion. Not Available [facility] ([facility]) [address] [facility], [place], [address], 01/11/2024 06:19:29 01/10/20 24 01/11/2024 NUA B VAGIN ITIS PLUS (VG+) atopobium vaginae High - 2 score abnormal Not Available [facility] ([facility]) [address] [place], [address], 01/12/2024 06:17:53 01/10/20 24 01/11/2024 NUSWA B VAGIN ITIS PLUS (VG+) bvab 2 High - 2 score abnormal Not Available [facility] ([facility]) [address] [place], [address], 01/12/2024 06:17:53 01/10/20 24 01/11/2024 NUSWA B VAGIN ITIS PLUS (VG+) megasphaera 1 High - 2 score abnormal Calcu late total score by kaitlyn ware the 3 indiv idual bacte rial vagin osis (BV) marke r score s toget her. Total score is inter prete d as follo ws: Total score 0-1: Indic ates the absen ce of BV. Total score 2: Indet ermin ate for BV. Addit ional clini kate data shoul d be evalu ated to estab gianni a diagn osis. Total score 3-6: Indic ates the prese nce of BV. This test was devel oped and its perfo rmanc e landon cteri stics deter mined by [facility]. It has not been clear ed or appro olamide by the Food and Drug Admin istra tion. Not Available [facility] ([facility]) [address] [place], [address], 01/12/2024 06:17:53 01/10/2001/11/2024 NUSWA B VAGIN ITIS PLUS (VG+) tammi albicans, BORIS Negati ve negati ve Not Available [facility] ([facility]) [address] [place], [address], 01/12/2024 06:17:53 01/10/20 24 01/11/2024 NUSWA B VAGIN ITIS PLUS (VG+) tammi glabrata, BORIS Negati ve negati ve Not Available [facility] ([facility]) [address] [place], [address], 01/12/2024 06:17:53 01/10/20 24 01/12/2024 NUSWA B VAGIN ITIS PLUS (VG+) trich vag by BORIS Negati ve negati ve Not Available [facility] ([facility]) [address] [place], [address], 01/12/2024 06:17:53 01/10/20 24 01/12/2024 NUSWA B VAGIN ITIS PLUS (VG+) chlamydia trachomatis, BORIS Negati ve negati ve Not Available [facility] ([facility]) [address] [place], [address], 01/12/2024 06:17:53 01/10/20 24 01/12/2024 NUSWA B VAGIN ITIS PLUS (VG+) neisseria gonorrhoeae, BORIS Negati ve negati ve Not Available [facility] ([facility]) [address] [place], [address], 01/12/2024 06:17:53 01/10/20 24 01/11/2024 IGP,C TNG,A PTIMA HPV,R FX16/ 18,45 HPV aptima Negati ve negati ve This nucle ic acid ampli ficat ion test detec ts fourt een high- risk HPV types (16,1 8,31, 33,35 ,39,4 5,51, 52,56 ,58,5 9,66, 68) witho ut diffe renti ation . Not Available [facility] ([facility]) [address] [place], [address], 01/15/2024 11:10:00 01/10/20 24 01/11/2024 IGP,C TNG,A PTIMA HPV,R FX16/ 18,45 chlamydia, nuc. acid amp Negati ve negati ve Not Available [facility] ([facility]) [address] [place], [address], 01/15/2024 11:10:00 01/10/20 24 01/11/2024 IGP,C TNG,A PTIMA HPV,R FX16/ 18,45 gonococcus, nuc. acid amp Negati ve negati ve Not Available [facility] ([facility]) [address] [place], [address], 01/15/2024 11:10:00 01/10/20 24 01/15/2024 IGP,C TNG,A PTIMA HPV,R FX16/ 18,45 diagnosis: Commen t NEGAT CARRI FOR INTRA EPITH ELIAL LESIO N OR MALIG TODD . Not Available [facility] ([facility]) [address] [place], [address], 01/15/2024 11:10:00 01/10/20 24 01/15/2024 IGP,C TNG,A PTIMA HPV,R FX16/ 18,45 specimen adequacy: Maeve borja Satis facto ry for evalu ation . Endoc ervic al and/o r squam ous metap lasti c cells (endo cervi kate compo nent) are prese nt. Not Available [facility] ([facility]) [address] [place], [address], 01/15/2024 11:10:00 01/10/20 24 01/15/2024 IGP,C TNG,A PTIMA HPV,R FX16/ 18,45 clinician provided ICD10: Maeve borja Z11.3 Z12.4 Not Available [facility] ([facility]) [address] [place], [address], 01/15/2024 11:10:00 01/10/20 24 01/15/2024 IGP,C TNG,A PTIMA HPV,R FX16/ 18,45 performed by: Maeve Mancilla th, Cytot vinay borja (ASCP ) Not Available [facility] ([facility]) [address] [place], [address], 01/15/2024 11:10:00 01/10/20 24 01/15/2024 IGP,C TNG,A PTIMA HPV,R FX16/ 18,45 . . Not Available [facility] ([facility]) [address] [place], [address], 01/15/2024 11:10:00 01/10/20 24 01/15/2024 IGP,C TNG,A PTIMA HPV,R FX16/ 18,45 note: Maeve borja The Pap smear is a scree berlin test desandrew martinid to aid in the detec tion of victoria ligna nt and malig nant condi tions of the uteri ne cervi x. It is not a diagn ostic proce dure and shoul d not be used as the sole means of detec ting cervi kate cance r. Both false -posi tive and false -nega tive repor ts do occur . Not Available [facility] ([facility]) [address] [facility], [place], [address], 01/15/2024 11:10:00 01/10/20 24 01/15/2024 IGP,C TNG,A PTIMA HPV,R FX16/ 18,45 test methodology: Commen t This liqui d based ThinP rep(R ) pap test was scree tiffany with the use of an image guide d systmedardo m. Not Available [facility] ([facility]) [address] [facility], [place], [address], 01/15/2024 11:10:00 01/10/20 24 01/15/2024 IGP,C TNG,A PTIMA HPV,R FX16/ 18,45 HPV genotype reflex Commen t Crite chilo not met, HPV Genot ype not perfo rmed. Not Available [facility] ([facility]) [address] [facility], [place], [address], 01/15/2024 11:10:00 Result Notes None recorded. Problems Name Problem SNOMED Code Status Onset Date Resolution Date Notes Provider Name and Address Organization Details Recorded Time [facility] Active 2023 Nexplanon placement on 02/29/24 DEBRA DOW MD Attn: Accountin g[address] [place], [address], [facility] 4 15:06:18 Problem Notes None recorded. Procedures Surgical History Date Name Laterality Status Provider Name and Address Organization Details Recorded Time 4 Control Implant Removal completed LESLY MEJIA MD Attn: [address]ing[address] [place], [address], [facility] 07/26/2024 16:39:51 Control Implant Insertion completed DEBRA DOW MD Attn: [address]ing[address] [place], [address], [place] [facility] 02/29/2024 09:55:29 Imaging Results None recorded. Procedure Notes None recorded. Medical Equipment None Reported. Allergies No known drug allergies Medications Name Sig Start Date Stop Date Status Note LastModified by Organization Details LastModified Time amoxicilli n 500 mg capsule TAKE 1 CAPSULE BY MOUTH THREE TIMES DAILY UNTIL GONE 01/09 completed Not Available Not Available Not Available benzonatat e 200 mg capsule TAKE 1 CAPSULE BY MOUTH EVERY 8 HOURS NEEDED FOR COUGH 01/09 completed Not Available Not Available Not Available metoprolol succinate ER 50 mg tablet,ext ended release 24 hr 01/09 completed Not Available Not Available Not Available metoprolol succinate ER 100 mg tablet,ext ended release 24 hr TAKE 1 TABLET BY MOUTH ONCE DAILY active Not Available Not Available No t Available metronidaz ole 500 mg tablet Take 1 tablet every 12 hours by oral route for 7 days. 07/26 completed Pt states she is no longer using Not Available Not Available Not Available clonidine HCl 0.2 mg tablet TAKE 1 TABLET BY MOUTH IN THE EVENING 01/09 completed Not Available Not Available Not Available alprazolam 0.25 mg tablet TAKE 1 TABLET BY MOUTH NIGHTLY NEEDED FOR SLEEP active pt states she is no longer using Not Available Not Available Not Available hydrochlor othiazide 12.5 mg capsule TAKE 1 TO 2 CAPSULES BY MOUTH ONCE DAILY EVERY MORNING DIRECTED active Not Available Not Available No t Available folic acid 1 mg tablet TAKE 1 TABLET BY MOUTH ONCE DAILY active Not Available Not Available No t Available ergocalcif lorna (vitamin D2) 1,250 mcg (50,000 unit) capsule TAKE 1 CAPSULE BY MOUTH ONCE EVERY 7 DAYS active Not Available Not Available No t Available albuterol sulfate HFA 90 mcg/actuat ion aerosol inhaler INHALE 2 PUFFS BY MOUTH EVERY 4 TO 6 HOURS NEEDED FOR SHORTNES S OF BREATH active Not Available Not Available No t Available cefdinir 300 mg capsule TAKE 1 CAPSULE BY MOUTH TWICE DAILY FOR 5 DAYS 01/09 completed Not Available Not Available Not Available sertraline 50 mg tablet TAKE 1 TABLET BY MOUTH ONCE DAILY active Not Available Not Available No t Available medroxypro gesterone 150 mg/mL intramuscu lar syringe INJECT 1ML INTRAMUS CULARY EVERY 3 MONTHS DIRECTED 01/09 completed Not Available Not Available Not Available cholestyra mine (with sugar) 4 gram powder for susp in a packet DISSOLVE & TAKE 1 PACKET BY MOUTH TWICE DAILY WITH MEALS 01/09 completed Not Available Not Available Not Available sodium,pot assium,mag sulfates 17.5 gram-3.13 gram-1.6 gram oral soln TAKE 177 ML BY MOUTH EVERY 12 HOURS PER GI INSTRUCT IONS 01/09 completed Not Available Not Available Not Available Nexplanon 68 mg subdermal implant Inject 1 implant by subcutan eous route. 2023 active Not Available Not Available Not Avai lable Tri-Lo-Mil i 0.18 mg/0.215 mg/0.25 mg-0.025 mg tablet Take 1 tablet every day by oral route. 2023 active Not Available Not Available Not Avai lable Ozempic 0.25 mg or 0.5 mg (2 mg/3 mL) subcutaneo us pen injector INJECT 0.25MG SUBCUTAN EOUSLY EVERY 7 DAYS active Not Available Not Available No t Available Vitals Date Recorded Body height Body mass index (BMI) Body weight Body temperature Heart rate Respiratory rate Systolic blood pressure Diastolic blood pressure Provider Name and Address Organization Details Last Updated DateTime 4 162.56 cm 51.2 kg/m2 645612. 58 g 98.3 [degF] 80 /min 18 /min 112 mm[Hg] 77 mm[Hg] Karlene Buckner MA [place] [facility] 4 08:50:30 Date Recorded Body height Body mass index (BMI) Body weight Heart rate Body temperature Respiratory rate Systolic blood pressure Diastolic blood pressure Provider Name and Address Organization Details Last Updated DateTime 4 162.56 cm 51.2 kg/m2 238062. 28 g 80 /min 98.3 [degF] 18 /min 129 mm[Hg] 87 mm[Hg] Karlene Buckner MA [place] [facility] 4 09:14:31 Date Recorded Body height Body mass index (BMI) Body weight Body temperature Respiratory rate Heart rate Systolic blood pressure Diastolic blood pressure Provider Name and Address Organization Details Last Updated DateTime 4 162.56 cm 50.3 kg/m2 354709. 91 g 97.3 [degF] 16 /min 83 /min 125 mm[Hg] 88 mm[Hg] Tom Cameron MA [place] - [facility] 11:42:41 Social History Question Answer Notes LastModified by Organizat ion Details LastModified Time Tobacco Smoking Status Never Smoker Karlene Buckner MA null, [place] - [facility] 01/10/2024 08:52:12 What Was The Date Of Your Most Recent Tobacco Screening? 07/26/2024 Information not available 07/26/2024 Has Tobacco Cessation Counseling Been Provided? Yes [email or web address] Information not available 01/10/2024 On What Date Was Tobacco Cessation Counseling Provided? 07/26/2024 Information not available 07/26/2024 Sex: Female Functional Status None recorded. Mental Status None recorded. Family History Nothing Reported. Medical History No medical history recorded. Gynecological History Statement/Question Response Menses Monthly N Date of LMP 02/10/2024 LMP Approximate Obstetrics History GPAL:G 0 P 0 0 0 0 Immunizations Vaccine Type Date Status Note Provider Nam e and Address Organization Details Recorded Time Influenza, split virus, quadrivalent, preservative 0 completed Norma [place] RN null, [place] [facility] 01/15/2024 15:44:16 Hib, unspecified formulation 0 tommy [place] RN [place] [facility] 01/15/2024 15:44:16 Hib, unspecified formulation 1 completed Norma [place] [facility] 01/15/2024 15:44:16 Hib, unspecified formulation 0 completed Norma [place] [facility] 01/15/2024 15:44:16 Hib, unspecified formulation 0 tommy [place] [facility] 01/15/2024 15:44:16 Hib, unspecified formulation 1 tommy [place] [facility] 01/15/2024 15:44:16 meningococcal B, OMV 7 completed Norma [place] [facility] 01/15/2024 15:44:16 meningococcal B, OMV 7 completed Norma [place] [facility] 01/15/2024 15:44:16 IPV 0 completed Norma [place] [facility] 01/15/2024 15:44:16 IPV 0 completed Norma [place] [facility] 01/15/2024 15:44:16 IPV 1 completed Norma [place] [facility] 01/15/2024 15:44:16 meningococcal, unknown serogroups 1 completed Norma [place] [facility] 01/15/2024 15:44:16 MMR 1 completed Norma [place] [facility] 01/15/2024 15:44:16 MMR 5 completed Norma [place] [facility] 01/15/2024 15:44:16 COVID-19, mRNA, LNP-S, PF, 30 mcg/0.3 mL dose 1 completed ANDREI Rhodes, [place] [facility] 01/15/2024 15:44:16 pneumococcal conjugate PCV 7 0 completed Norma [place] [facility] 01/15/2024 15:44:16 pneumococcal conjugate PCV 7 1 completed Norma [place] [facility] 01/15/2024 15:44:16 pneumococcal conjugate PCV 7 0 completed Norma [place] [facility] 01/15/2024 15:44:16 influenza, unspecified formulation 0 completed Norma [place] [facility] 01/15/2024 15:44:16 Tdap 3 completed Norma [place] [facility] 01/15/2024 15:44:16 varicella 1 completed Norma [place] [facility] 01/15/2024 15:44:16 Hep B, unspecified formulation 0 completed Norma [place] [facility] 01/15/2024 15:44:16 Hep B, unspecified formulation 1 completed Norma [place] [facility] 01/15/2024 15:44:16 polio, unspecified formulation 5 completed Norma [place] [facility] 01/15/2024 15:44:16 HPV, quadrivalent 3 completed Norma [place] [facility] 01/15/2024 15:44:16 HPV, quadrivalent 1 completed Norma [place] [facility] 01/15/2024 15:44:16 Hep B, adolescent or pediatric 1 completed Norma [place] [facility] 01/15/2024 15:44:16 Hep B, adolescent or pediatric 0 completed Norma [place] [facility] 01/15/2024 15:44:16 Hep B, adolescent or pediatric 0 completed Norma [place] [facility] 01/15/2024 15:44:16 Hep B, adolescent or pediatric 0 completed Norma [place] [facility] 01/15/2024 15:44:16 meningococcal MCV4P 7 completed Norma [place] [facility] 01/15/2024 15:44:16 DTaP 0 completed Norm[place] [facility] 01/15/2024 15:44:16 DTaP 0 completed Norm[place] [facility] 01/15/2024 15:44:16 DTaP 0 completed Norm[place] [facility] 01/15/2024 15:44:16 DTaP 1 completed Norma Scott RN null, [place] [facility] 01/15/2024 15:44:16 DTaP, unspecified formulation 5 completed Norma Scott RN null, [place] [facility] 01/15/2024 15:44:16 Past Encounters Encounter ID Performer Location Encounter Start Date Encounter Closed Date Diagnosis/Indication Diagnosis SNOMED-CT Code Diagnosis ICD10 Code Diagnosis Note [id number] MD Rachel Clark 14 IM [address] [facility] [place] [address] 01/10/2024 08:30:04 01/24/2024 09:53:46 Venereal disease screening 204104566 Z11.3 Screening for malignant neoplasm of cervix 039882800 Z12.4 Contracept ion care management 404475450 Z30.9 Patient currently on Tri-Lo.Wou ld like to have Nexplanon- Schedule pt for Nexplanon in Procedure clinic-Con tinue OCP until nexplanon inserted [id number] MD Rachel Young 14 IM [address] [facility] [place] [address] 02/29/2024 09:07:00 03/04/2024 15:55:07 Contraception care management 607689397 Z30.9 Nexplanon insertion completed without complicati on.Horizontal Resaw Operator ed on STD transmissi on and prevention , condom use and prevention [id number] MD Rachel VELOZ 14 IM [address] [facility] [place] [address] 07/26/2024 11:31:01 08/06/2024 12:24:22 Contraception care management 113614965 Z30.9 Nexplanon removed today due to potential side effect of hair loss. Prior OCP restarted. Follow-up with regular PCP to make sure she is tolerating OCP also to discuss hair loss concerns. Removal of subcutaneous contraceptive 583819164 Z30.46 Health Concerns Section Related Observation LastModified by Organization Detai ls LastModified Time None Recorded Concern Status LastModified by Organization Details LastModified Time None Recorded Advance Directives Directive None Recorded Payers Encounter Date Sequence Insurance Name Policy Number Policy Brunson Covered Member ID Brunson Member ID Guarantor Name 01/10/2024 2 [place] [id number] 5 Izabela Arce [id number] Laura Tushar 01/10/2024 1 [employer] BENEFITS (PPO) Laura Tushar [id number] Laura Tushar 02/29/2024 2 [place] [id number] 5 Izabela Arce [id number] Laura Tushar 02/29/2024 1 [employer]ENEFITS (PPO) Laura Tushar [id number] Laura Tushar 07/26/2024 2 [place] [id number] 5 Izabela Arce [id number] Laura Tushar 07/26/2024 1 [employer]ENEFITS (PPO) Laura Tushar [id number] Laura Tushar Notes Date Note Type Note Provider Name and Address Organization Details Recorded Time 01/10/2024 text/html Laura is a 23 y/o F presenting to the clinic to 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 Pt sees Dr. Ruby as PCP. control pill, Aax-nf-ekiddsro, causing breakthrough bleeding every other week. She has been on the Tri-Lo for about 6 months.LMP - 01/04/2024, Usually lasts 7 days.Quite a bit of spotting in between since starting OCPs. Previously had nexplanon. which she tolerated well. Since taking out the Nexplanon, which had , she had tried the Depo shot - gained 50 lbs. Never had a pap. Pt has no other complaints at this time denying headache, fever, chills, cough, chest pain, palpitations, abdominal discomfort, nausea, vomiting, diarrhea, constipation, increase in urination frequency/dysuria. 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 No concerns today. Maliha Mejia MD Attn: [address] [place], [address], [facility] 02/29/2024 15:23:21 07/26/2024 text/html 23-year-old fema le here in procedure clinic for Nexplanon removal. States she would like Nexplanon removed as she has been having hair loss since placement of the Nexplanon and would like to have it removed so she can restart her OCP. KALEB BROWN MD Attn: Accounting[address] [facility], [place], [address], [facility] 07/30/2024 13:01:28 OBGyn Episode No OBEpisode recorded.
--- OUTSIDE RECORDS SUMMARY | 2025-01-01 16:53 | XMS_ITS | Encounter Summary ---
Author Organization [facility] Address [address] [place] [address] Care Team Providers Care Vacuum Caster Name Role Phone Albert Ruby MD Primary Care Provider [phone] Tremayne Shi MD Unavailable [phone] Encounter Details Date Type Department Care Team (Late st Contact Info) Description 02/16/2021 Sompharmaceuticalst Message Enc [facility] Medical Group Family and Sports Medicine - [place] [address] [place] [address] Albert Ruby MD [address] [address] RE: Referral Request Social History Tobacco Use [...] Sex Assigned at Female 10/02/2024 10:48 AM WRAPPER CASER Legal Sex Female 4:55 PM CDT Gender [...] Rule Out 10/02/2024 10/02/2024 10/02/2024 10:45 AM WRAPPER CASER Assessment Noted Time PHQ-9 Depression Total Score: 10 11/13/ 021 8:11 AM WRAPPER CASER documented as of this encounter Care Teams Vacuum Caster Relationship Specialty Start Date End Date Albert Ruby MD [address] [place] [address] [address] [place] [address] PCP - General FAMILY PRACTICE 05/16/18 Tremayne Shi MD [facility]. 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
--- OUTSIDE RECORDS SUMMARY | 2025-01-01 16:53 | XMS_ITS | Encounter Summary ---
Author Organization [facility] Health Address [address] [facility] [place] [address] Care Team Providers Care Raker Buffing Wheel Name Role Phone Albert Ruby MD Primary Care Provider [phone] Reason for Visit * Reason Onset Date Comments MEDICATION REFILL 11/19/2024 Encounter Details Date Type Department Care Team (Late st Contact Info) Description 11/19/2024 Refill [facility] - ANGER CONTROL COUNSELOR [address] [facility] [address] [place] [address] Rufino Platt MD [address] [facility] [address] [place], [place] [id number] MEDICATION REFILL Social History Tobacco Use Types Packs/Day Years Used Date Smoking Tobacco: Never Alcohol Use Standard Drinks/Week Comments No 0 (1 standard drink = 0.6 oz pur e alcohol) Education Answer Date Recorded What is the highest level of school you have completed or the highest degree you have received? 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 & W/E Not on file Not on file Not on file documented as of this encounter Miscellaneous Notes * Telephone Encounter - Michelle Sin RN - 11/26/2024 8:03 AM CDT Rescheduling appt 12/06 documented in this encounter Plan of Treatment Upcoming Encounters Date Type Department Care Team (Late st Contact Info) Description 01/14/2025 1:00 PM CDT Procedure visit [facility] - ANGER CONTROL COUNSELOR [address] [place] [address] 01/14/2025 2:00 PM CDT [facility] - ANGER CONTROL COUNSELOR [address] [place] [address] documented as of this encounter Visit Diagnoses Not on filedocumented in this encounter Care Teams Raker Buffing Wheel Relationship Specialty Start Date End Date Albert Ruby MD [address] [id number] PCP - General Family Medicine 11/08/24 documented as of this encounter
--- OUTSIDE RECORDS SUMMARY | 2025-01-01 16:53 | XMS_ITS | Encounter Summary ---
Author Organization [facility] Address [address] [place] [address] Care Team Providers Care Lead Oracle Developer Name Role Phone Albert Ruby MD Primary Care Provider [phone] Tremayne Shi MD Unavailable [phone] Encounter Details Date Type Department Care Team (Late st Contact Info) Description 03/24/2021 Adyent Message Enc [facility] Medical [facility] Family and Sports Medicine - [place] [address] [place] [address] Albert Ruby MD [address] [address] RE: Other Social History Tobacco Use Types [...] Sex Assigned at Female 10/02/2024 10:48 AM DRY WALL FINISHER Legal Sex Female 4:55 PM CDT Gender [...] Rule Out 10/02/2024 10/02/2024 10/02/2024 10:45 AM DRY WALL FINISHER Assessment Noted Time PHQ-9 Depression Total Score: 10 11/13/ 021 8:11 AM DRY WALL FINISHER documented as of this encounter Care Teams Lead Oracle Developer Relationship Specialty Start Date End Date Albert Ruby MD [address] [place] [address] [address] [facility] [place] [address] PCP - General FAMILY PRACTICE 05/16/18 Tremayne Shi MD [facility]. [address] [place] [address] EP Margarine Maker CARDIOVASCULAR DISEASE 08/15/18 documented as of this encounter
--- OUTSIDE RECORDS SUMMARY | 2025-01-01 16:53 | XMS_ITS | Encounter Summary ---
Author Organization [facility] Address [address] [place] [address] Care Team Providers Care Manager Emergency Department Name Role Phone Albert Ruby MD Primary Care Provider [phone] Tremayne Shi MD Unavailable [phone] Encounter Details Date Type Department Care Team (Late st Contact Info) Description 04/06/2021 Musical Sneakers Message Enc [facility] [address] [place] [address] Tremayne Shi MD [facility]. [facility] [address] [place] [address] RE: Medication Questions Social History [...] Sex Assigned at Female 10/02/2024 10:48 AM MANAGER MOTOR Legal Sex Female 4:55 PM CDT Gender [...] Rule Out 10/02/2024 10/02/2024 10/02/2024 10:45 AM MANAGER MOTOR Assessment Noted Time PHQ-9 Depression Total Score: 10 021 8:11 AM MANAGER MOTOR documented as of this encounter Care Teams Manager Emergency Department Relationship Specialty Start Date End Date Albert Ruby MD [address] [place] [address] [address] [place] [address] PCP - General FAMILY PRACTICE 05/16/18 Tremayne Shi MD [facility]. [address] [place] [address] EP Tree Feller Operator CARDIOVASCULAR DISEASE 08/15/18 documented as of this encounter
--- OUTSIDE RECORDS SUMMARY | 2025-01-01 16:53 | XMS_ITS | Referral Summary ---
Author Organization [facility] Address [address] [place] [address] Care Team Providers Care Health Inspector Food Name Role Phone Unknown, Notinfile Primary Care [...] on file Legal Sex Female 5:31 AM ENVIRONMENTAL DIRECTOR Gender Identity Not on file Sexual Orientation [...] ACCESS CHOICE [employer] OPEN ACCESS Care Teams Health Inspector Food Relationship Specialty Start Date End Date Unknown, Notinfile PCP - General 05/02/23
--- OUTSIDE RECORDS SUMMARY | 2025-01-01 16:53 | XMS_ITS | Data Portability ---
Author Organization [facility] [place] Address [address] [place] [address] Assessment Encounter Date Assessment Date Assessment LastModified by Organization Details LastModified Time 12/18/2019 12/18/2019 Nexplanon Insertion Not available 12/18/2019 11:55:38 Plan of Treatment Reminders Order Date Submit Date Provider Last Modified By Organization Details Last Modified Time Details Appointments None recorded . Lab pregnanc y test, urine 2022 023 [facility], [facility] [address], [place], [address], 3 16:31:35 Referral None recorded . Procedures None recorded . Surgeries None recorded . Imaging None recorded . Medication Orders Depo-Pro vera 150 mg/mL intramus cular syringe 2022 023 [facility] [address] [place], [address], 3 16:59:16 metronid azole 0.75 % (37.5 mg/5 gram) vaginal gel [address] [facility] [address] [place], [address], 3 16:27:45 Depo-Pro vera 150 mg/mL intramus cular syringe [address] [facility] [address] [place], [address], 3 17:34:52 Patient TargetsNo targets recorded. Patient Instructions Encounter Date Encounter Id Patient Instructions Last Modified By Organization Details Last Modified Time 12/18/2019 [id number] surgical trays* [id number] Not availa ble 12/28/2019 00:08:59 Post-procedure instructions [...] was confi rmed by an addit ional brandon ner. FINAL DIAGN OSIS: Negat theresa for [...] may decre ase, but will not elimi kutr, false negat theresa resul ts. A negat [...] as clini kathy wong nted. Not Available [facility] (Lab) [address] [facility], [place], [address], 09/14/2022 12:18:32 09/08/20 22 09/08/2022 CT/GC (LORRAINE) , THINP REP VIAL chlamydia trachomatis, PCR Negati ve negati ve Not Available [facility] (Lab) [address] [facility], [place], [address], 09/14/2022 12:18:32 09/08/20 22 09/08/2022 CT/GC (LORRAINE) , THINP REP VIAL neisseria gonorrhoeae, PCR Negati ve negati ve Not Available [facility] (Lab) [address], [place], [address], 09/14/2022 12:18:32 09/08/20 22 09/08/2022 TRICH OMONA S VAGIN FLORINDA (RRNA ) trichomonas vaginalis ribosomal RNA (rrna) Negati ve negati ve Not Available [facility] (Lab) [address], [place], [address], 09/14/2022 12:18:33 09/16/19 23 09/16/2022 pregn courtney test, urine HCG negati ve Not Available [place] [address], [place], [address], 09/16/2022 16:31:27 Result Notes None recorded. Problems Name Problem SNOMED Code Status Onset Date Resolution Date Notes Provider Name and Address Organization Details Recorded Time Pain in female genitalia Active 2019 Dysmenorrhe a;Recorded Elsewhere: No Location : [facility] Sour ce: EHR Chronic : N Practice ID: [id number] Billab le Time: 09:00:00 AM Not Available [facility] 0 16:14:24 Education Active 2019 Encounter for other general counseling and advice on contracepti on;Recorded Elsewhere: No Location : [facility] Sour ce: EHR Chronic : N Practice ID: [id number] Billab le Time: 09:00:00 AM Not Available [facility] 0 16:14:24 Problem Notes None recorded. Procedures Surgical History Date Name Laterality Status Provider Name and Address Organization Details Recorded Time 3 Control Implant Removal completed ARI Hidalgo- [address], [place], [address], [facility] 09/16/2022 17:07:24 0 Control Implant Insertion completed ARI Hidalgo-K[facility] [address], [place], [address], [facility] 12/18/2019 11:29:26 repair of tendo achilles completed [facility] 12/18/2019 10:57:41 procedure on ankle completed [facility] 12/18/2019 10:58:45 Imaging Results None recorded. [...] ed Elsewher e: Yes Loca tion: [facility] M odify By: ernesto meng DateTime : [...] ed Elsewher e: Yes Loca tion: [facility] M odify By: jennifermat Russell [email or web address] DateTime : 12/17/19 09:00:00 AM Not [...] mimi (28) 0.18 mg(7)/0.2 15 mg(7)/0.2 5 mg(7)-0.0 35 mg tablet 03/18 completed Not Available Not [...] Updated DateTime 09/08/2022 165.1 cm 45.1 kg/m2 334626.5 3 g 124 mm[Hg] 86 mm[Hg] [facility] 2 15:24:55 Date Recorded Body height Body mass index (BMI) Body weight Systolic blood pressure Diastolic blood pressure Provider Name and Address Organization Details Last Updated DateTime 09/14/2022 165.1 cm 45.1 kg/m2 945945.5 3 g 124 mm[Hg] 84 mm[Hg] [facility] 3 15:58:47 Date Recorded Body height Body mass index (BMI) Body weight Provider Name and Address Organization Details Last Updated DateTime 09/16/2022 165.1 cm 45.1 kg/m2 346831.[address] [facility] 09/16/2022 16:28:33 Date Recorded Systolic blood pressure Diastolic blood pressure Provider Name and Address Organization Details Last Updated DateTime 09/16/2022 122 mm[Hg] 80 mm[Hg] Lashell Blount, [facility]- [address], [place], [address], [facility] 09/16/2022 17:06:55 Date Recorded Body height Body mass index (BMI) Percentile per age and sex Body mass index (BMI) Body weight Systolic blood pressure Diastolic blood pressure Provider Name and Address Organization Details Last Updated DateTime 0 2011.68 cm 1 % 0.3 kg/m2 227000. 2 g 137 mm[Hg] 82 mm[Hg] Karolina Payne [facility] 0 11:08:56 Social History Question Answer Notes LastModified by [employer] ion Details LastModified Time Tobacco Smoking Status Never Smoker Lucrecia Ramos [place], [facility] 09/14/2022 15:18:47 What Is Your Level [...] have difficulty walking or climbing stairs? No [email or web address] Information not available 09/14/2022 Are you able to walk? YESWOREST Information not available 09/08/2022 Are you able to care for yourself? Yes [email or web address] Information not available 09/14/2022 Do you have difficulty dressing or bathing? No [email or web address] Information not available 09/14/2022 What is your [...] SNOMED-CT Code Diagnosis ICD10 Code Diagnosis Note 166 Lashell Blount [facility] [address],[place] [address] 12/18/2019 10:45:29 12/19/2019 13:01:22 Insertion of subcutaneous contraceptive 082351019 Z30.9 Irregular periods 884088 07 N92.6 [id number] Missy Stahl [facility] [address],[facility] [address] 09/08/2022 15:13:45 09/08/2022 16:37:57 Gynecologic examination 61459764 Z01.419 Z11.3 Z11.8 Take Calcium with Vitamin D 1200mg daily if not receiving in daily diet. It is strongly advised to have an annual flu shot and up can obtain at most pharmacies . If you have not had a TDap shot in the last 10 years you should obtain one as well. Discussed with patient & provided with informatio n regarding Gardisil vaccine to prevent the 4 strains for HPV that cause cervical cancer if under age 26. Encourage safe sexual practices, to use condoms and limit partners if not already in a monogamous relationsh ip. Do monthly self breast exams. Have mammogram yearly or every other year depending on family history. BRCA testing is now available for patients with strong genetic history of female cancer. If interested contact the office. Engage in daily exercise of low impact aerobic exercise 45-60 minutes 4-5 times weekly. Avoid tobacco and illicit drugs as well as using moderation with alcohol intake less than 1-2 8 oz beverages daily. This lifestyle behavior pattern will lead to less health conditions and longer life span. If BMI greater than 25 weight watchers or dietary consult advised. Patient received above instructio ns, and questions have been answered. If you have any questions please call or respond to this email. Patient was made aware of the patient portal and may obtain a paper copy of today's plan if desired. WWEMedical hx : SVT, follows with cardiology / anemiaBC - Nexplanon. Periods are irregular since nexplanon was inserted on 12/18/2019. Desires another method. Not a candidate for estrogen containing BC.All methods discussedD esires Mirena IUD She has been counseled on all of the r/b/a of placement of an intrauteri ne device that include but are not limited to uterine perforatio n, injury to cervix, vagina, bladder, and bowel.Risk s of bleeding due to injury or increased irregular bleeding due to progestin effect of the device. Risks of infection would be increased within the first 21 days of placement with concommita nt cervicitis . She understand s that the device will need to be removed in this instance due to increased risk of Pelvic inflammato ry disease. Patient is aware she is at higher risk for STD and if contracted she could lose her fertility. Pt is aware that if occurs that she should contact office immediatel y to rule out ectopic which could be life threatenin g. IUD will also need to be removed and this could cause miscarriag e. Patient also informed that in the event her strings are absent or embedded at the time of removal she may need to have the IUD surgically removed.Pr imary pap done todaySTI testing added to papRTC for nexplanon removal and IUD insertion Contracept ion care management 538007193 Z30.9 [id number] ARI Matson [place] [address] [address] 09/14/2022 15:18:24 09/14/2022 18:41:00 Vaginitis 49528098 N76.0 Treatment sent for BV noted on papR/B of medication discussed and accepted by patient Contracept ion care management 441253741 Z30.9 All BC methods discussed in-depthNo t a candidate for estrogen containing BCDoes not want to continue with nexplanonD oes not want IUDWould not remember to take pillsDesir es DMPA, was on this previous and did wellWe discussed DMPA, including risk of bone loss and weight gain. Discussed current BMI of 45 and risk for further weight gain. Given hx of SVT, discussed risk associated with weight gain and DMPA use. Given all risk, patient would still like to move forward with DMPAStress ed importance of regular exercise, healthy eating, and encouraged weight lossPatien t should notify cardiologi st of DMPA useRx sentRT for nexplanon removal and depo injection Depo-Prove ra is a female hormonal method of control. It s very effective in preventing . Depo-Prove ra contains a synthetic (man-made) form of the hormone progestero ne, called depo medroxypro gesterone acetate (DMPA). The Depo-Prove ra injection gives 3 months protectio n against . You should get one injection every 3 months (13 weeks) to get the best protection against . It s safe to get your injection up to 3 weeks earlier if you can t get your next injection in exactly 13 weeks. This will need to be given between 1-7 of next menstrual cycle. Condoms or other secondary BC method is advised for at least the first 4wks. Possible SE's include: Mood changes, AUB, Dizziness, H/A's, bloating, loss of menstrual cycle, weight gain approx 5#'s every year for the first 3yrs. Does not prevent against STD's. Typical use only 6 out of every 100 women will become . Perfect use only 1 out of every 100 women will become . It is recommende d for Depo to be initiated at least 2yrs after you have started your menstrual cycle to protect bone health as there is a risk of bone density loss. This is usually reversible once this medication is stopped. While on this medication recommend increasing calcium in diet & taking calcium 1300mg-180 0mg daily along with padilla D daily to prevent bone loss along with regular exercise. There is less of a risk of bone loss after age 18yo. After 3-5yrs use it may be recommende d to complete a dexa scan. This can be discussed with your healthcare provider. Time spent in visit is a total of 30 mins with at least 50% of visit consisting of counseling and review of plan of care. [id number] ARI Hidalgo-[facility] [address] [address] 09/16/2022 16:09:52 09/16/2022 17:23:57 Screening procedure 34338439 Z13.9 Contraception care 28615 5005 Z30.40 Depo administer ed today after removal of nexplnaonI nstructed on when to return for next injection. Removal of subcutaneous contraceptive 991608713 Z30.46 Removal site was cleansed with betadine and 3cc of lidocaine used for anesthesia . Device was removed in normal fashion without difficulty . Steri stips and pressure bandage placed. Health Concerns Section Related Observation LastModified by Organization Detai ls LastModified Time None Recorded Concern Status LastModified by Organization Details LastModified Time None Recorded Advance Directives Directive None Recorded Payers Encounter Date Sequence Insurance Name Policy Number Policy Brunson Covered Member ID Brunson Member ID Guarantor Name 12/18/2019 1 [facility] - DOS PRIOR TO 2021 (MEDICAID REPLACEMENT - HMO) Laura Tushar [id number] Laura Tushar 09/08/2022 1 [place] [id number] 5 Laura Tushar [id number] Laura Tushar 09/14/2022 1 [place] [id number] Laura Tushar [id number] Laura Tushar 09/16/2022 1 [place] [id number] 5 Laura Tushar [id number] Laura Tushar Notes Date Note Type [...] infection or hypersensitivity at the insertion site ARI Hidalgo- [address], [place], [address], [facility] 12/18/2019 13:21:36 09/08/2022 text/html Annual GYNReport [...] age 39 ARI Matson [address], [place], [address], [facility] 09/08/2022 16:03:19 09/14/2022 text/html 22yo [id number] for BC consultShe has nexplanon currently, was considering nexplanon removal with IUD insertion but no longer desires IUD.Would like something that does not have to be taken dailyDoes not like unpredictable bleeding with nexplanonRecent STI testing (-)Recent pap WNL, possible BV Medical hx : SVT, follows with cardiology / anemia ARI Matson [address], [place], [address], [facility] 09/14/2022 17:57:06 09/16/2022 text/html Here today for nexplanon removal & switching to Depo. ARI Hidalgo- [address], [place], [address], [facility] 09/16/2022 17:08:59 OBGyn Episode No OBEpisode recorded.
--- OUTSIDE RECORDS SUMMARY | 2025-01-01 16:53 | XMS_ITS | Encounter Summary ---
Author Organization [facility] Address [address] [place] [address] Care Team Providers Care Gold Charmer Name Role Phone Albert Ruby MD Primary Care Provider [phone] Tremayne Shi MD Unavailable [phone] Encounter Details Date Type Department Care Team (Late st Contact Info) Description 05/04/2021 Odilot Message Enc [facility] Medical Group Family and Sports Medicine - [place] [address] [place] [address] Albert Ruby MD [address] [address] RE: Question Social History Tobacco Use Types [...] Sex Assigned at Female 10/02/2024 10:48 AM ENVIRONMENTAL ADVISER Legal Sex Female 4:55 PM CDT Gender [...] Rule Out 10/02/2024 10/02/2024 10/02/2024 10:45 AM ENVIRONMENTAL ADVISER Assessment Noted Time PHQ-9 Depression Total Score: 10 11/13/ 021 8:11 AM ENVIRONMENTAL ADVISER documented as of this encounter Care Teams Gold Charmer Relationship Specialty Start Date End Date Albert Ruby MD [address] [place] [address] [address] [place] [address] PCP - General FAMILY PRACTICE 05/16/18 Tremayne Shi MD [facility]. [address] [place] [address] EP Well Flow Operator CARDIOVASCULAR DISEASE 08/15/18 documented as of this encounter
--- OUTSIDE RECORDS SUMMARY | 2025-01-01 16:53 | XMS_ITS | Clinical Summary ---
Author Organization [facility] Address [address] [place] [address] Care Team Providers Care Field Applications Specialist Name Role Phone Magda Gregorio DO Primary Care Provider [phone] Allergies Active Allergy Reactions Criticality Noted Date Comments Apple Juice Nausea and Vomiting Low 01/05/2010 Medications lansoprazole (PREVACID SOLUTAB) 30 mg Oral TbLDIndications: Abdominal pain, other specified site,Nausea Take 1 Tab [...] Restless legs syndrome (RLS) 11/04/2010 Achrochordon 01/05/2010 Estimated Date of Delivery Comme nts Yes 05/16/2025 Resolved Problems Problem Noted Date Diagnosed Date Resolved Date Abdominal pain 01/13/2011 05/01/2013 Encounters Date Type Department Care Team Description 12/24/2024 External Device Data [facility] ABSTRACTION Provider, Abstract 11/27/2024 External Device Data [facility] ABSTRACTION Provider, Abstract 11/22/2024 Chart Note [facility] - [facility] [place] [address] [place] [address] Michelle Curran RN 11/22/2024 Telephone [facility] [place] [facility] [address] [place] [address] Pantera Rey MD No Show 10/24/2024 Abstract [facility] - [facility] [place] [address], [place] [address] Michelle Curran RN 10/24/2024 Orders Only [facility] Maternal and Ground [facility] [address] [place] [address] [place] [address] Anastasiya Mendoza, ALFA Supraventricular tachycardia (Primary Dx); Morbid obesity with BMI of 50.0-59.9, adult (CMS/[facility]); Essential hypertension affecting in first trimester; Asthma, unspecified asthma severity, unspecified whether complicated, unspecified whether persistent from Last 3 Months Immunizations Immunization Administration Dates Next Due (BEXSERO)(10-25 YR) MENINGOC [...] COVID-19 VACCINE - EMERGENCY USE AUTHORIZATION, MRNA, [id number](PF) 30 MCG/0.3 ML IM SUSP 05/13/2021,02/23/2021 (PROQUAD)(12 [...] drink = 0.6 oz pur e alcohol) Estimated Date of Delivery Comme nts Yes 05/16/2025 Sex and Gender Information Value Date Recorded Sex Assigned at Not on file Legal Sex Female 5:41 AM AQUATIC FACILITY MANAGER Gender Identity Not on file Sexual Orientation Not on file Last Filed Vital Signs Vital Sign Reading Time Taken Comments Blood Pressure 118/74 10/14/2022 10:43 AM AQUATIC FACILITY MANAGER Pulse 75 10/14/2022 10:43 AM AQUATIC FACILITY MANAGER Temperature 36.9 C (98.4 F) 10/14/2022 10:43 AM AQUATIC FACILITY MANAGER Respiratory Rate 20 01/21/2011 9:13 AM CDT Oxygen Saturation 99% 10/14/2022 10:43 AM AQUATIC FACILITY MANAGER Inhaled Oxygen Concentration - - Weight 125.2 kg (276 lb) 10/14/2022 10:43 AM AQUATIC FACILITY MANAGER Height 167.6 cm (5' 6 ) 10/14/2022 10:43 AM AQUATIC FACILITY MANAGER Body Mass Index 44.55 10/14/2022 10:43 AM AQUATIC FACILITY MANAGER Plan of Treatment Health Maintenance Due Date Last Done Comments HPV/Cotest (-) 2020 DTAP/TDAP/TD VACCINES (3 - T d or Tdap) 05/01/2023 05/01/2013, 04/18/2005, 04/18/2005, Additional history exists INFLUENZA VACCINE (#1) 2024 , 06/05/2020, 07/25/2011, Additional history exists COVID-19 Vaccine (2023-2 5 season) 2024 05/13/2021, 02/23/2021 CERVICAL CANCER SCREENING 12/02/2026 PAP SMEAR 12/02/2026 12/03/2023, 09/08/2022 HEPATITIS B VACCINES Completed 03/26/2001, 03/26/2001, 12/22/2000, Additional history exists HPV VACCINES Completed 05/01/2013, 04/12, 08/22/2011, Additional history exists Preventative Visit- Commercial Completed 0 10/22/2024, 07/07/2023, 10/14/2022, Additional history exists RSV VACCINE (60+ or ) (No Doses Required) Completed Insurance [facility] Advance Directives For more information, please contact: [phone] * Full Code (Latest Code Status on File) Date Activated Date Inactivated Comments 01/21/2011 8:00 AM 01/21/2011 11:52 AM Care Teams Field Applications Specialist Relationship Specialty [place] [address] [facility] [address] [place] [address] PCP - General Internal Medicine 10/14/22
--- OUTSIDE RECORDS SUMMARY | 2025-01-01 16:53 | XMS_ITS | Encounter Summary ---
Author Organization [facility] Address [address] [place] [address] Care Team Providers Care Hand Tire Trimmer Name Role Phone Albert Ruby MD Primary Care Provider [phone] Tremayne Shi MD Unavailable [phone] Encounter Details Date Type Department Care Team (Late st Contact Info) Description 04/03/2021 [employer] Alertt Message Enc [facility] Family and Sports Medicine - [place] [address] [place] [address] Albert Ruby MD [address] [address] RE: Referral Request Social History Tobacco Use [...] Sex Assigned at Female 10/02/2024 10:48 AM CHIEF DIETITIAN Legal Sex Female 4:55 PM CDT Gender [...] Rule Out 10/02/2024 10/02/2024 10/02/2024 10:45 AM CHIEF DIETITIAN Assessment Noted Time PHQ-9 Depression Total Score: 10 11/13/ 021 8:11 AM CHIEF DIETITIAN documented as of this encounter Care Teams Hand Tire Trimmer Relationship Specialty Start Date End Date Albert Ruby MD [address] [place] [address] [address] [place] [address] PCP - General FAMILY PRACTICE 05/16/18 Tremayne Shi MD [facility]. [address] [place] [address] EP Insurance Law Specialist CARDIOVASCULAR DISEASE 08/15/18 documented as of this encounter
--- OUTSIDE RECORDS SUMMARY | 2025-01-01 16:53 | XMS_ITS | Encounter Summary ---
Author Organization [facility] Address [address] [place] [address] Care Team Providers Care Metal Wire Technician Name Role Phone Albert Ruby MD Primary Care Provider [phone] Tremayne Shi MD Unavailable [phone] Encounter Details Date Type Department Care Team (Late st Contact Info) Description 09/29/2020 [employer] Message Enc [facility] Family and Sports Medicine - [place] [address] [place] [address] Albert Ruby MD [address] [address] RE: Question Social History Tobacco Use Types [...] Sex Assigned at Female 10/02/2024 10:48 AM QUILTING SUPERVISOR Legal Sex Female 4:55 PM CDT Gender [...] Rule Out 10/02/2024 10/02/2024 10/02/2024 10:45 AM QUILTING SUPERVISOR Assessment Noted Time PHQ-9 Depression Total Score: 9 08/05/20 19 9:19 AM QUILTING SUPERVISOR documented as of this encounter Care Teams Metal Wire Technician Relationship Specialty Start Date End Date Albert Ruby MD [address] [facility] [address] [place] [address] PCP - General FAMILY PRACTICE 05/16/18 Tremayne Shi MD [facility]. [facility] [address] [place] [address] EP Club Waiter/Waitress CARDIOVASCULAR DISEASE 08/15/18 documented as of this encounter
--- OUTSIDE RECORDS SUMMARY | 2025-01-01 16:54 | XMS_ITS | Clinical Summary ---
Author Organization [facility] Address [id number] [address] Phone Care Team Providers Care Yeast Maker Name Role Phone Albert Ruby MD Primary Care Provider [phone] Allergies Active Allergy Reactions Criticality Noted Date [...] Active Active Problems No known active problems Social History Tobacco Use Types Packs/Day Years [...] 99 06/06/2024 12:17 PM CDT Temperature 36.6 C (97.9 F) 06/06/2024 12:17 PM CDT Respiratory Rate 20 06/06/2024 12:1 [...] Pap Smear 2020 Influenza Immunization (#1) 2024 07/09/2022, 06/05/2020, 05/12/2020, Additional history exists SARS-COV-2 Immunization [...] on patient's age to complete this topic Insurance [facility] Care Teams Yeast Maker Relationship Specialty Start Date End Date Albert Ruby MD [address] [address] PCP - General Family Medicine 12/26/23
--- OUTSIDE RECORDS SUMMARY | 2025-01-01 16:54 | XMS_ITS | Data Portability ---
Author Organization [employer] , [facility] Address [address] [place] [address] Assessment Encounter Date Assessment Date Assessment LastModified by Organization Details LastModified Time 10/22/2024 10/22/2024 Pt comes in today for a New/First OB visit. Gestation: 10w 4d EDC by US 05/16/25 -- PMH: HTN, Asthma, Morbid obesity BMI 51.3, SVT -- Previous OB History: First -- Mom/Sisters with hx of Pre-Eclampsia: Mother -- History of Genital HSV: Denies -- Genetic Questions in OB Episode Done POC -- NOB labs done today -- PAP Up to Date -- Low dose aspirin recommended -- Pre- BMI: 51 -- [employer] Genetic testing collected today. -- Transfer to [facility] [email or web address] Not available 10/22/2024 11:53:02 Plan of Treatment Reminders Order Date Submit Date Provider Last Modified By Organization Details Last Modified Time Details Appointments None recorded. Lab CMP, serum or plasma 2024 025 Muzui Adan, [address] [place], [address], 5 11:38:25 protein:cre atinine ratio, urine 2024 025 [employer], [address] [place], [address], 5 11:38:24 uric acid, serum or plasma 2024 025 [facility], [address] [facility], [place], [address], 5 08:09:12 TSH, serum, reflex free T4 2024 025 [facility] [employer] [facility], [address] [place], [address], 5 11:43:24 hemoglobin A1c, QN, blood 2024 025 [facility], [address] [place], [address], 5 13:02:00 abo group + rh type, blood 2024 025 [facility], [address] [place], [address], 5 08:09:16 CBC w/ auto diff 2024 025 [facility], [address] [place] [address], [address], 5 15:32:57 CT + NG DNA, PCR, unspecified specimen 2024 025 [facility], [address] [place] [address], [address], 5 09:02:58 drug of abuse panel, urine 2024 025 [facility], [address] [place] [address], [address], 5 12:04:16 obstetric screen + HIV, serum or blood 2024 025 [facility], [address] [place], [address], 5 12:25:32 measles igg Ab, serum 2024 025 [facility], [address] [place], [address], 5 08:09:14 culture, urine 2024 025 [facility], [address] [place], [address], 5 08:09:16 varicella-z bennett igg Ab screen, serum 2024 025 [facility], [address] [place], [address], 5 08:09:13 hemoglobino nano profile, blood 2024 025 [facility], [address] [place], [address], 5 08:09:13 antibody screen, serum or plasma 2024 025 [facility], [address] [place], [address], 5 08:09:15 beta-HCG, quantitativ e, serum or plasma 2023 024 [facility] Adan, [address] [place], [address], 4 10:47:36 beta-HCG, quantitativ e, serum or plasma 2023 024 6 [facility], [address] [place], [address], 5 16:39:31 Referral None recorded. Procedures None recorded. Surgeries None recorded. Imaging US, obstetric, transvagina l 2024 025 REBEKA Not available 5 14:22:47 US, obstetric, transvagina l 2024 025 RE[facility]KA Not available 5 12:53:54 US, transvagina l 2024 025 RE[facility]KA Not available 5 22:05:04 US, transvagina l 2023 024 RE[facility]KA Not available 07:34:20 Medication Orders Adult Low Dose Aspirin 81 mg tablet,malik yed release 2024 025 [facility] [address] [place], [address], 11:42:59 ondansetron 4 mg disintegrat ing tablet 2024 025 [facility] [address] [place], [address], 5 19:01:56 Pepcid 20 mg tablet 2024 025 [facility] [address] [place], [address], 19:01:56 Patient TargetsNo targets recorded. Patient Instructions Encounter Date Encounter Id Patient Instructions Last Modified By Organization Details Last Modified Time 09/24/2024 [id number] [facility] OB Booklet [email or web address] Not available 09/24/2024 10:26:14 Reason for Referral None Reported. Results Created Date Observation Date Name Description Value Unit Range Abnormal Flag Note LastModifiedBy Organization Detail LastModifiedTime 09/06/2009/07/2024 HCG, TOTAL , QUANT HCG, total, quant 121 mIU/m L <5 high Refer ence Range s are for femal es aged 18 years - Adult Nonpr egnan t or preme nopau kevin <5 Postm enopa usal <10 Value s from diffe rent assay metho ds may vary. The use of this assay to monit or or to diagn ose patie nts with cance r or any other condi tion unrel ated to pregn courtney has not been valid ated by the rinkuf actur er of this assay . Not Available [facility] [address] [place], [address], 09/07/2024 10:47:36 09/07/20 24 09/10/2024 HCG, TOTAL , QUANT HCG, total, quant 498 mIU/m L <5 high Refer ence Range s are for femal es aged 18 years - Adult Nonpr egnan t or preme nopau kevin <5 Postm enopa usal <10 Value s from diffe rent assay metho ds may vary. The use of this assay to monit or or to diagn ose patie nts with cance r or any other condi tion unrel ated to pregn courtney has not been valid ated by the rinku actur er of this assay . Not Available [address], [address], 09/10/2024 12:55:44 10/22/19 25 10/23/2024 PROT/ CREAT - U RANDO M protein, urine 7.7 mg/dL <11.9 normal Not Available [address], [address], 10/23/2024 11:38:24 10/22/19 25 10/23/2024 PROT/ CREAT - U RANDO M creatinine, urine 116 mg/dL 20 - 275 normal Not Available [address], [address], 10/23/2024 11:38:24 10/22/19 25 10/23/2024 PROT/ CREAT - U RANDO M protein/crea tinine ratio, random urine 0.066 mg/mg _crea t 0.024 - 0.184 normal Not Available [address], [address], 10/23/2024 11:38:24 10/22/19 25 10/23/2024 COMPR EHENS CARRI METAB OLIC PANEL sodium 140 mmol/ L 136 - 145 normal Not Available [address], [address], 10/23/2024 11:38:25 10/22/19 25 10/23/2024 COMPR EHENS CARRI METAB OLIC PANEL potassium 4.5 mmol/ L 3.5 - 5.1 normal Not Available [address], [address], 10/23/2024 11:38:25 10/22/19 25 10/23/2024 COMPR EHENS CARRI METAB OLIC PANEL chloride 103 mmol/ L 98 - 107 normal Not Available [address], [address], 10/23/2024 11:38:25 10/22/19 25 10/23/2024 COMPR EHENS CARRI METAB OLIC PANEL glucose 80 mg/dL 74 - 106 normal Not Available [address], [address], 10/23/2024 11:38:25 10/22/19 25 10/23/2024 COMPR EHENS CARRI METAB OLIC PANEL carbon dioxide 27 mmol/ L 20 - 32 normal Not Available [address], [address], 10/23/2024 11:38:25 10/22/19 25 10/23/2024 COMPR EHENS CARRI METAB OLIC PANEL calcium 9.9 mg/dL 8.5 - 10.1 normal Not Available [address], [address], 10/23/2024 11:38:25 10/22/19 25 10/23/2024 COMPR EHENS CARRI METAB OLIC PANEL creatinine 0.83 mg/dL 0.60 - 1.00 normal Not Available [address], [address], 10/23/2024 11:38:25 10/22/19 25 10/23/2024 COMPR EHENS CARRI METAB OLIC PANEL eGFR 100 mL/mi n/1.7 3m2 >60 normal The eGFR is based on the CKD-E PI 2020 equat ion. To calcu late the new eGFR from a previ ous Creat inine or Cysta brittany C resul t, go to https ://ishmael clark.o isatu/pr ofess ional s/kdo qi/gf r_cal culat or Not Available [address], [address], 10/23/2024 11:38:25 10/22/19 25 10/23/2024 COMPR EHENS CARRI METAB OLIC PANEL AST 13 U/L 15 - 37 low Not Available [address], [address], 10/23/2024 11:38:25 10/22/19 25 10/23/2024 COMPR EHENS CARRI METAB OLIC PANEL ALT 24 U/L 14 - 59 normal Not Available [address], [address], 10/23/2024 11:38:25 10/22/19 25 10/23/2024 COMPR EHENS CARRI METAB OLIC PANEL alk phos 80 U/L 46 - 116 normal Not Available [address], [address], 10/23/2024 11:38:25 10/22/19 25 10/23/2024 COMPR EHENS CARRI METAB OLIC PANEL albumin 3.4 g/dL 3.4 - 5.0 low Not Available [address], [address], 10/23/2024 11:38:25 10/22/19 25 10/23/2024 COMPR EHENS CARRI METAB OLIC PANEL protein, total 7.2 g/dL 6.4 - 8.2 normal Not Available [address], [address], 10/23/2024 11:38:25 10/22/19 25 10/23/2024 COMPR EHENS CARRI METAB OLIC PANEL bilirubin, total 0.1 mg/dL 0.2 - 1.0 low Not Available [address], [address], 10/23/2024 11:38:25 10/22/19 25 10/23/2024 COMPR EHENS CARRI METAB OLIC PANEL urea nitrogen (BUN) 8 mg/dL 7 - 18 normal Not Available [address], [place], [address], 10/23/2024 11:38:25 10/22/19 25 10/23/2024 TSH W/ REFLE X TO FREE, T4 TSH 1.51 mIU/L 0.55 - 4.78 normal Refer ence Range Femal e aged 18-Ad ult: 0.55- 4.78 Pregn courtney Refer ence Range s First Trime ster 0.26- 2.66 Secon d Trime ster 0.55- 2.73 Third Trime ster 0.43- 2.91 Not Available [facility] [address] [place], [address], 10/23/2024 11:43:24 10/22/19 25 10/23/2024 DRUG ABUSE PANEL 7 W/CON FIRM amphetamines Negati ve negati ve normal Not Available [facility] [address] [place] [address], [address], 10/23/2024 12:04:16 10/22/19 25 10/23/2024 DRUG ABUSE PANEL 7 W/CON FIRM barbiturates Negati ve negati ve normal Not Available [facility] [address] [place] [address], [address], 10/23/2024 12:04:16 10/22/19 25 10/23/2024 DRUG ABUSE PANEL 7 W/CON FIRM benzodiazepi nadya Negati ve negati ve normal Not Available [facility] [address] [place] [address], [address], 10/23/2024 12:04:16 10/22/19 25 10/23/2024 DRUG ABUSE PANEL 7 W/CON FIRM cocaine metabolites Negati ve negati ve normal Not Available [facility] [address] [place] [address], [address], 10/23/2024 12:04:16 10/22/19 25 10/23/2024 DRUG ABUSE PANEL 7 W/CON FIRM cannabinoids Negati ve negati ve normal Not Available [facility] [address] [place] [address], [address], 10/23/2024 12:04:16 10/22/19 25 10/23/2024 DRUG ABUSE PANEL 7 W/CON FIRM methadone Negati ve negati ve normal Not Available [facility], [address], 10/23/2024 12:04:16 10/22/19 25 10/23/2024 DRUG ABUSE PANEL 7 W/CON FIRM opiates Negati ve negati ve normal Not Available [address], [address], 10/23/2024 12:04:16 10/22/19 25 10/23/2024 DRUG ABUSE PANEL 7 W/CON FIRM creatinine, urine 113 mg/dL 20 - 275 normal Not Available [address], [address], 10/23/2024 12:04:16 10/22/19 25 10/23/2024 OB PANEL - STD BLOOD WORK hep BS Ag Non-Re active non-re active normal Not Available [address], [address], 10/23/2024 12:25:32 10/22/19 25 10/23/2024 OB PANEL - STD BLOOD WORK hep C Ab Non-Re active non-re active normal Not Available [address], [address], 10/23/2024 12:25:32 10/22/19 25 10/23/2024 OB PANEL - STD BLOOD WORK HIV 1/2 Ag/Ab Non-Re active non-re active normal Not Available [address], [address], 10/23/2024 12:25:32 10/22/19 25 10/23/2024 OB PANEL - STD BLOOD WORK syphilis Ab Non-Re active non-re active normal Not Available [address], [address], 10/23/2024 12:25:32 02/11/20 25 10/23/2024 OB PANEL - STD BLOOD WORK rubella Ab IgG 5.9 IU/mL low INTER PRETI VE INFOR MATIO N: Rubel la Antib chester, IgG. < 5.0 IU/mL ..... ..... . Not consi stent with immun ity 5.0 - 9.9 IU/mL ..... . Equiv ocal: Indet ermin ate-R epeat testi ng in 10-14 days may be helpf ul. > or = 10.0 IU/mL ... Consi stent with immun ity The prese nce of Rubel la IgG antib chester sugge st respo nse to immun izati on or prior /curr ent expos ure to the Rubel la virus . Not Available [facility] [address] [place], [address], 10/23/2024 12:25:32 10/22/19 25 10/23/2024 HEMOG LOBIN A1C hemoglobin A1C 4.8 % <5.7 normal The refer ence range for HbA1c is indic ated in the table below . Sugge sted Diagn osis =6.5% Consi stent with diabe joya 5.7 6.4% Consi stent with incre ased risk for diabe joya (pred iabet ic) <5.7% Consi stent with the absen ce of diabe joya Not Available [facility] [address] [place], [address], 10/23/2024 13:02:00 10/22/19 25 10/23/2024 CBC (INCL UDES DIFF/ PLT) WBC 13.4 thous and/u L 4.0 - 9.8 high Not Available [employer] [facility] [place], [address], 10/23/2024 15:32:57 10/22/19 25 10/23/2024 CBC (INCL UDES DIFF/ PLT) RBC 5.1 mumtaz on/uL 3.9 - 4.9 high Not Available [facility] [address] [place], [address], 10/23/2024 15:32:57 10/22/19 25 10/23/2024 CBC (INCL UDES DIFF/ PLT) hemoglobin 11.9 g/dL 11.8 - 14.8 normal Not Available [address], [address], 10/23/2024 15:32:57 10/22/19 25 10/23/2024 CBC (INCL UDES DIFF/ PLT) hematocrit 39.4 % 35.5 - 44.0 normal Not Available [address], [address], 10/23/2024 15:32:57 10/22/19 25 10/23/2024 CBC (INCL UDES DIFF/ PLT) MCV 77.0 fL 82.0 - 99.0 low Not Available [address], [address], 10/23/2024 15:32:57 10/22/19 25 10/23/2024 CBC (INCL UDES DIFF/ PLT) MCH 23.2 pg 27.2 - 32.6 low Not Available [address], [address], 10/23/2024 15:32:57 10/22/19 25 10/23/2024 CBC (INCL UDES DIFF/ PLT) MCHC 30.2 g/dL 31.5 - 35.5 low Not Available [address], [address], 10/23/2024 15:32:57 10/22/19 25 10/23/2024 CBC (INCL UDES DIFF/ PLT) RDW-CV 17.4 % 11.5 - 14.5 high Not Available [address], [address], 10/23/2024 15:32:57 10/22/19 25 10/23/2024 CBC (INCL UDES DIFF/ PLT) platelet 240 thous and/u L 140 - 350 normal Not Available [address], [address], 10/23/2024 15:32:57 10/22/19 25 10/23/2024 CBC (INCL UDES DIFF/ PLT) MPV ---- fL COMME NT: MPV = Resul t remov ed due to large varia bilit y in plate let size distr ibuti on. Plate let size distr ibuti on verif ied by smear revie w. Large r plate lets prese nt on smear revie w (plts size 4-7 um). Giant plate lets prese nt on smear revie w (plt size >7um) . Not Available [address], [address], 10/23/2024 15:32:57 10/22/19 25 10/23/2024 CBC (INCL UDES DIFF/ PLT) absolute neutrophil 8.63 thous and/u L 1.90 - 7.00 high Not Available [address], [address], 10/23/2024 15:32:57 10/22/19 25 10/23/2024 CBC (INCL UDES DIFF/ PLT) absolute lymphocyte 3.80 thous and/u L 0.70 - 4.50 normal Not Available [address], [address], 10/23/2024 15:32:57 10/22/19 25 10/23/2024 CBC (INCL UDES DIFF/ PLT) absolute monocyte 0.75 thous and/u L 0.10 - 1.30 normal Not Available [address], [address], 10/23/2024 15:32:57 10/22/19 25 10/23/2024 CBC (INCL UDES DIFF/ PLT) absolute eosinophil 0.07 thous and/u L <0.70 normal Not Available [address], [address], 10/23/2024 15:32:57 10/22/19 25 10/23/2024 CBC (INCL UDES DIFF/ PLT) absolute basophil 0.07 thous and/u L <0.20 normal Not Available [address], [address], 10/23/2024 15:32:57 10/22/19 25 10/23/2024 CBC (INCL UDES DIFF/ PLT) absolute immature granulocyte 0.04 thous and/u L <0.03 high Not Available [address], [address], 10/23/2024 15:32:57 10/22/19 25 10/23/2024 CT/NG chlamydia trachomatis CT POS negati ve abnormal This repor t is inten ded for us in clini kate monit oring and manag ement of [facility] nts. It is not inten ded for use in medic al-le gal appli catio n. Not Available [address], [address], 10/24/2024 09:02:58 10/22/19 25 10/23/2024 CT/NG neisseria gonorrhoeae GC neg negati ve normal This repor t is inten ded for us in clini kate monit oring and manag ement of [facility] nts. It is not inten ded for use in medic al-le gal appli catio n. Not Available [address], [address], 10/24/2024 09:02:58 10/22/19 25 10/29/2024 URIC ACID uric acid 6.1 mg/dL 2.5-7. 0 normal Thera peuti c targe t for gout [facility]: <6.0 mg/dL Not Available [facility] [employer] [facility] [address] [place], [address], 10/29/2024 08:09:12 10/22/19 25 10/29/2024 VARIC EZRA ZOSTE R VIRUS ANTIB CHESTER (IGG) varicella zoster virus antibody (IgG) 1.20 S/co normal Signa l to Cut-o ff S/CO Inter preta tion ----- ---- ----- ----- ----- ----- -- <1.00 Negat carri - Antib chester not detec adeline > or = 1.00 Posit carri - Antib chester detec adeline A posit carri resul t indic ates that the patie nt has antib chester to VZV but does not diffe renti ate betwe en an activ e or past infec tion. The clini kate diagn osis must be inter prete d in conju nctio n with the clini kate signs and sympt oms of the patie nt. This assay relia chris measu res immun ity due to previ ous infec tion but may not be sensi tive enoug h to detec t antib odies induc ed by vacci natio n. Thus, a negat carri resul t in a vacci nated indiv idual does not neces saril y indic ate susce ptibi lity to VZV infec tion. A more sensi tive test for vacci natio n-ind uced immun ity is Varic ezra armijo Virus Antib chester Immun ity Scree n, ACIF. Not Available [facility] [place] [address] [address] [place], [address], 10/29/2024 08:09:13 10/22/1910/29/2024 HEMOG LOBIN OPATH Y EVALU ATION red blood cell count 4.99 mumtaz on/uL 3.80-5 .10 Not Available [facility] [place] [facility] [address] [address] [place], [address], 10/29/2024 08:09:13 10/22/1910/29/2024 HEMOG LOBIN OPATH Y EVALU ATION hemoglobin 11.5 g/dL 11.7-1 5.5 low Not Available [facility] [place] [facility] [address] [place], [address], 10/29/2024 08:09:13 10/22/1910/29/2024 HEMOG LOBIN OPATH Y EVALU ATION hematocrit 39.6 % 35.0-4 5.0 Not Available [address], [address], 10/29/2024 08:09:13 10/22/1910/29/2024 HEMOG LOBIN OPATH Y EVALU ATION MCV 79.4 fL 80.0-1 00.0 low Not Available [address], [address], 10/29/2024 08:09:13 10/22/1910/29/2024 HEMOG LOBIN OPATH Y EVALU ATION MCH 23.0 pg 27.0-3 3.0 low Not Available [address], [address], 10/29/2024 08:09:13 10/22/1910/29/2024 HEMOG LOBIN OPATH Y EVALU ATION RDW 16.3 % 11.0-1 5.0 high Not Available [address], [address], 10/29/2024 08:09:13 10/22/1910/29/2024 HEMOG LOBIN OPATH Y EVALU ATION hemoglobin A 97.4 % >96.0 Not Available [address], [address], 10/29/2024 08:09:13 10/22/1910/29/2024 HEMOG LOBIN OPATH Y EVALU ATION hemoglobin F <1.0 % <2.0 Not Available [address], [address], 10/29/2024 08:09:13 10/22/1910/29/2024 HEMOG LOBIN OPATH Y EVALU ATION hemoglobin A2 (quant) 2.6 % 2.0-3. 2 Not Available [address] [address] [place], [address], 10/29/2024 08:09:13 10/22/1910/29/2024 HEMOG LOBIN OPATH Y EVALU ATION interpretati on Jia l pheno type. Jia l hemog lobin distr ibuti on, no HgS, HgC or other abnor mal hemog lobin obser olamide. Possi ble alpha thala ssemi a trait . Rule out iron defic iency . Not Available [facility] [address] [address] [address] , [place], [address], 10/29/2024 08:09:13 10/22/1910/29/2024 MEASL ES AB (IGG) , IMMUN E STATU S measles Ab (IgG), immune status 134.00 AU/mL normal AU/mL Inter preta tion ----- ----- ----- ---- <13.5 0 Not consi stent with immun ity 13.50 -16.4 9 Equiv ocal >16.4 9 Consi stent with immun ity The prese nce of measl es IgG sugge sts immun izati on or past or curre nt infec tion with measl es virus . For addit ional infor jin dent e refer to http: //sarbjit Stone stDia gnost ics.c om/fa q/FAQ 162 (This link is being provi ded for infor solitario contreras/ educa byron l purpo ses only. ) Not Available [facility] [address] [place], [address], 10/29/2024 08:09:14 10/22/1910/29/2024 ANTIB CHESTER SCREE N, RBC W/REF L ID, TITER AND AG antibody screen, RBC w/refl id, titer and Ag NO ANTIBO DIES DETECT ED normal Refer ence range No antib odies detec adeline This assay is a scree berlin test for the detec tion of red blood cell antib odies . The test is not to be used for pretr ansfu aram scree berlin or for the medic al manag ement of an alloi mmuni zed pregn courtney. Not Available [address] [address] [place], [address], 10/29/2024 08:09:15 10/22/1910/29/2024 ABO GROUP AND RH TYPE ABO group A Not Available [facility] [address] [address] [place], [address], 10/29/2024 08:09:16 10/22/1910/29/2024 ABO GROUP AND RH TYPE Rh type RH(D) POSITI VE For addit ional infor jin dent refer to http: //[facility].Que stDia gnost ics.c om/fa q/FAQ 111 (This link is being provi ded for infor solitario contreras/ educhalle butt purpo ses only. ) Not Available [address] [address] [address] , [place], [address], 10/29/2024 08:09:16 10/22/1910/29/2024 CULTU RE, URINE , ROUTI NE culture, urine, routine SEE NOTE CULTU RE, URINE , ROUTI NE Micro Numbe r: [id number] Test Statu s: Final Speci men Sourc e: Urine Speci men Quali ty: Adequ ate Resul t: Mixed genit al brendon isola adeline. These super ficia l bacte chilo are not indic ative of a urina ry tract infec tion. No furth er organ ism ident ifica tion is warra nted on this speci men. If clini kathy indic ated, recol lect clean -catc h, mid-s tream urine and trans meena immed iatel y to Urine Cultu re Trans port Tube. Not Available [facility] [address] [address] [place], [address], 10/29/2024 08:09:16 10/24/1910/24/2024 CHROM OSOME S 13, 18, 21 + SEX CHROM OSOME LASHAWN SIS chromosomes 13, 18, 21 + sex chromosome analysis Negati ve normal See PDF for compl ete resul ts. Overa ll Resul t: Negat carri Negat carri for all order ed condi tions Clini kate Notes : * The resid ual risks provi ded repre [facility] the pregn courtney is affec adeline with the indic ated chrom osome aneup loidy in view of a negat carri resul t. * This is a scree berlin test; there fore, false posit carri and false negat carri resul ts can occur . No irrev ersib le decis ion shoul d be made based on these findi ngs alone . Clini kate corre latio n with ultra sound findi ngs and histo ry is indic ated. If defin itive diagn osis is elvie ed, chori onic villu s sampl ing or amnio cente sis is neces flavio. fract ion: 5.7% - fract ion is one compo nent of the algor ithm used and is combi tiffany with other quali ty metri cs to deter mine the aneup loidy scree berlin resul t. Not Available [facility] [address] [place], [address], 10/30/2024 11:45:13 10/24/19 25 10/24/2024 ALBERTO MENTA L PANEL (CF + SMA) fundamental panel (CF + sma) Negati ve normal See PDF for compl ete resul ts. Overa ll Resul t: Negat carri No disea se-ca using mutat ions detec adeline. Not Available [facility] [address] [place], [address], 10/30/2024 17:16:11 10/24/19 25 10/24/2024 CONSU LTATI ON REPOR T consultation report Please refer to attach ed PDF for Consul tation Report normal Not Available [facility] [address] [place], [address], 11/04/2024 12:15:42 10/24/19 25 10/24/2024 CONSU LTATI ON REPOR T consultation report Please refer to attach ed PDF for Consul tation Report normal Not Available [facility] [address] [place], [address], 11/04/2024 12:15:47 10/24/19 25 10/24/2024 ALBERTO MENTA L PLUS PANEL , ALBERTO MENTA L PANEL fundamental plus panel, fundamental panel Negati ve normal See PDF for compl ete resul ts. Overa ll Resul t: Negat carri No disea se-ca using mutat ions detec adeline. Not Available [facility] [address] [facility], [place], [address], 11/08/2024 17:16:11 09/09/20 24 09/06/2024 US, trans vagin al No observ ation record ed. [email or web address] [address], [place], [address], 09/13/2024 13:43:54 09/17/19 25 09/17/2024 US, trans vagin al No observ ation record ed. [email or web address] [address], [place], [address], 09/18/2024 12:17:54 09/24/19 25 09/24/2024 US, obste tric, trans vagin al No observ ation record ed. [email or web address] [address], [place], [address], 09/25/2024 11:13:38 10/05/19 25 10/04/2024 [place], obste tric, trans vagin al No observ ation record ed. [email or web address] Glenny [address], [place], [address], 10/06/2024 21:26:24 Result Notes None recorded. Problems Name Problem SNOMED Code Status Onset Date Resolution Date Notes Provider Name and Address Organization Details Recorded Time History of hypertension 869018168 Active 2023 ARI MCDUFFIE-KARUNA [address] [place], [address], [facility] IV 5 11:46:49 [id number] Active 2024 Earnestine Morales[place]on [place], [place] - [facility] IV 5 09:23:37 Supraventricul ar tachycardia 7890949 Active 2024 SHELTON MOSER [facility] [address] [place] [address], [address], [facility] IV 5 11:41:27 Supraventricul ar tachycardia 5962353 Active 2024 SHELTON MOSER [address], [address], [facility] IV 5 11:41:27 Morbid obesity 249187668 Active 2024 SHELTON MOSER [address], [address], [facility] 5 11:41:50 Morbid obesity 457781355 Active 2024 SHELTON MOSER [address], [address], [facility] [facility] 5 11:41:50 Asthma 839702621 Active 2024 SHELTON MOSER [address], [address], [facility] IV 5 11:53:36 Essential hypertension 59064415 Active 2024 SHELTON MOSER [address], [address], [facility] IV 5 11:53:19 Asthma 286274244 Active 2024 SHELTON MOSER [facility] [address] [place] [address], [address], [facility] IV 5 11:53:36 Problem Notes None recorded. Procedures Surgical History Date Name Laterality Status Provider Name and Address Organization Details Recorded Time Date of Last Pap Smear completed [facility] 09/06/2024 13:00:38 repair of tendo achilles completed [facility] 09/06/2024 13:03:12 Imaging Results Imaging Date Name Status LastModified by Organization Details LastModified Time 09/06/2024 US, transvaginal completed [email or web address] Glenny [address], [place], [address], 09/13/2024 13:43:54 09/17/2024 US, transvaginal completed [email or web address] [address], [place], [address], 09/18/2024 12:17:54 09/24/2024 US, obstetric, transvaginal completed [email or web address] [address], [place], [address], 09/25/2024 11:13:38 10/04/2024 US, obstetric, transvaginal completed [email or web address] [address], [place], [address], 10/06/2024 21:26:24 Procedure Notes None recorded. Medical Equipment None Reported. Allergies No known drug allergies Medications Name Sig Start Date Stop Date Status Note LastModified by Organization Details LastModified Time benzonatate 200 mg capsule TAKE 1 CAPSULE BY MOUTH EVERY 8 HOURS NEEDED FOR COUGH 09/06 completed Not Available Not Available Not Available aspirin 81 mg tablet,malik yed release TAKE 2 TABLETS BY MOUTH ONCE DAILY FOR PRE-ECLAM PSIA PREVENTIO N. active Not Available Not Available No t Available Zoloft 50 mg tablet Take 1 tablet every day by oral route. active Not Available Not Available No t Available hydrochloro thiazide 12.5 mg capsule Take 1 capsule every day by oral route. active Not Available Not Available No t Available folic acid 1 mg tablet Take 1 tablet every day by oral route. active Not Available Not Available No t Available Pepcid 20 mg tablet Take 1 tablet twice a day by oral route. 2024 active Not Available Not Available Not Avai lable albuterol sulfate HFA 90 mcg/actuati on aerosol inhaler INHALE 2 PUFFS BY MOUTH EVERY 4 TO 6 HOURS NEEDED FOR SHORTNESS OF BREATH active Not Available Not Available No t Available ondansetron 4 mg disintegrat ing tablet DISSOLVE 1 TABLET IN MOUTH EVERY 4 TO 6 HOURS NEEDED active Not Available Not Available No t Available cefdinir 300 mg capsule TAKE 1 CAPSULE BY MOUTH TWICE DAILY FOR 5 DAYS 09/06 completed Not Available Not Available Not Available azithromyci n 500 mg tablet TAKE 2 TABLETS BY MOUTH ONCE FOR 1 DOSE active Not Available Not Available No t Available metoprolol succinate active 150 MG Not Available Not Available Not Available Vitamin D3 active Not Available Not Av ailable Not Available Nexium 10/22 completed Not Available Not Available Not Available Vitals Date Recorded Body weight Body temperature Body mass index (BMI) Body height Systolic blood pressure Diastolic blood pressure Provider Name and Address Organization Details Last Updated DateTime 4 603587. 44 g 97.7 [degF] 50.4 kg/m2 162.56 cm 114 mm[Hg] 82 mm[Hg] [facility] IV 4 13:08:57 Date Recorded Body height Body mass index (BMI) Body weight Body temperature Systolic blood pressure Diastolic blood pressure Provider Name and Address Organization Details Last Updated DateTime 5 162.56 cm 51.5 kg/m2 073762. 71 g 97.9 [degF] 138 mm[Hg] 84 mm[Hg] [facility] IV 5 11:33:47 Date Recorded Body height Body mass index (BMI) Body weight Body temperature Systolic blood pressure Diastolic blood pressure Provider Name and Address Organization Details Last Updated DateTime 5 162.56 cm 52.6 kg/m2 222113. 98 g 98.1 [degF] 134 mm[Hg] 78 mm[Hg] [facility] IV 5 09:58:29 Date Recorded Body height Body mass index (BMI) Body weight Provider Name and Address Organization Details Last Updated DateTime 10/04/2024 162.56 cm 51.5 kg/m2 040021.43 g Samm Rivera [employer] [facility] 10/04/2024 18:55:32 Date Recorded Body height Body mass index (BMI) Body temperature Provider Name and Address Organization Details Last Updated DateTime 10/22/2024 162.56 cm 51.3 kg/m2 98 [degF] E[address] [employer] [facility] 10/22/2024 11:17:28 Date Recorded Body weight Systolic blood pressure Diastolic blood pressure Provider Name and Address Organization Details Last Updated DateTime 10/22/2024 985011.400 156 g 132 mm[Hg] 78 mm[Hg] SHELTON MOSER, [facility]- [address] [place], [address], [employer] IV 10/22/2024 11:46:04 Social History Question Answer Notes LastModified by Organizat ion Details LastModified Time Tobacco Smoking Status Never Smoker [address], [employer] [facility] 09/06/2024 13:02:26 What Is Your Level Of Alcohol Consumption? Occasional [email or web address] Information not available 09/06/2024 How Many Times Per Week Do You Consume Alcohol? Less Than 1 Time Per Week [email or web address] Information not available 10/04/2024 If You Are , What Was Your Level Of Alcohol Consumption Prior To ? Occasional [email or web address] Information not available 09/06/2024 Are You Blind Or Do You Have Difficulty Seeing? No [email or web address] Information not available 09/06/2024 Are You Currently Employed? Yes Information not available 10/22/2024 Are You Deaf Or Do You Have Serious Difficulty Hearing? No [email or web address] Information not available 09/06/2024 What Type Of Diet Are You Following? REGULAR [email or web address] Information not available 09/06/2024 How Many Children Do You Have? -1 Information not available 10/22/2024 Are There Any Occupational Health Risks Where You Work? No Information not available 10/22/2024 What Is Your Relationship Status? Single Information not available 09/06/2024 Are You Sexually Active? Yes [email or web address] Information not available 09/06/2024 Do You Use Any Illicit Or Recreational Drugs? No [email or web address] Information not available 09/06/2024 Do You Or Have You Ever Used Any Other Forms Of Tobacco Or Nicotine? No Information not available 09/06/2024 Sex: Unknown Functional Status Question Answer Note LastModified by Organization D etails LastModified Time What is your exercise level? Moderate Information not available 10/22/2024 Mental Status None recorded. Family History Relationship Description Onset Age of this Age Resolved Age Notes LastModified by Organization Details LastModified Time Mother Hypothyroidi sm [email or web address] Not available 09/06 13:04:04 Medical History Condition Response High Blood Pressure Y Depression Y Anxiety Disorder Y Seasonal allergies Y GERD (reflux) Y Asthma Y Chicken Pox Y Anemia Y Gynecological History Statement/Question Response Flow Light Date of last HPV Date of LMP 07/12/2024 HPV Vaccine Y Duration of Flow (days) 3 Most Recent Mammogram Current Control Method Age at Menarche 12 Date of Last Colonoscopy Most Recent Bone Density Date of Last Pap Smear 07/12/2024 Obstetrics History GPAL:G 1 P 0 0 0 0 Type Value Multiple Births 0 Full Term 0 Induced 0 Spontaneous 0 Premature 0 Living 0 Ectopics 0 Total 1 Past Encounters Encounter ID Performer Location Encounter Start Date Encounter Closed Date Diagnosis/Indication Diagnosis SNOMED-CT Code Diagnosis ICD10 Code Diagnosis Note [id number] STUART CHANDLER DO [facility] [address] [place] [address] 09/06/2024 12:35:33 09/06/2024 16:18:24 Threatened miscarriage 72527417 O20.0 23 yo w/ +UPT now having vaginal bleeding and pelvic pain LMP: 07/12/24--> 8w1dUS: uterus with small GS measuring 4 weeks.As pt is having minimal symptoms will trend hcg level to see if will turn into viable vs SABSAB precaution s given on when to go to ER [id number] NA MCDUFFIE [facility] [address] [place] [address] 09/17/2024 11:04:47 09/17/2024 13:13:21 test positive 778897774 Z32.01 GS seen with probably YS.Divina Bledsoe who did US reports: Probable too early for heart motion to be seen . Today she's measuring 5.5 wks. She had a scan 2 wks ago, and things have progressed appropriat shaista since then.She recommende d to RTC in 1 week for repeat TVUS. History of hypertension 413795507 Z86.79 Reviewed meds with patient Morbid obesity 327613265 E66.01 Due to BMI, will most likely have to transfer care to [facility] shaista thirty minutes spent with patient in consultati on (>50% face-to-fa ce). Patient labs and notes were reviewed. Patient questions were answered. Additional patient care was coordinate d. Uncertain viability of 106279883 O36.80X9 [id number] [facility] [address] [place] [address] 09/24/2024 09:28:30 09/24/2024 12:01:13 test positive 039502101 Z32.01 Pt presents today for a confirmati on of visit. has not been previously confirmed at another healthcare facility. Pt voiced that she is happy about this . TVUS today showed:IUP with Cardiac Activity.E DD based on this US. ALBIN: 05/16/2025Ge stational Age: 6w 4dFHT: 113 First trimester teaching provided.- --Foods and activities to avoid---We ight gain recommenda tions based on BMI---Safe meds---Dwight entation to practice-- -Delivery locations- --CAMILA visit progressio n---Prenat al vitamins daily---To xoplasmosi s precaution s reviewed-- -[facility] Guide; What to expect on your maternity journey -- -S/S of SAB reviewed and when to seek care RTC for 1st OB, Labs, and Physical. --BMI: 51.5 -- Pt desires Genetic testing. Patient was counseled on purpose, process and potential outcomes of NIPT and carrier screening. We discussed benefits, limitation s and accuracy of screenings . Alternativ es including, no testing, were reviewed. Patient was given the opportunit y to ask questions, which were addressed thoroughly . After confirming understand ing, patient provided verbal consent for NIPT and carrier screening. Uncertain viability of 447688549 O36.80X9 History of hypertension 387014952 Z86.79 Reviewed meds with patient Morbid obesity 299230260 E66.01 Due to BMI, will most likely have to transfer care to [facility] [id number] Yomaira Ramos CNM [facility] [address] [place] [address] 10/04/2024 18:38:25 10/04/2024 19:21:01 Nausea and vomiting in 7066375054 O21.9 Complicati on of , childbirth and/or puerperium 165093893 O26.899 R10.9 Pt was seen in the ED for dehydratio n and was told to have baby checked out.Receiv ed numerous bags of IV fluids d/t severe dehydratio n. Also had norovirus. Feeling improved today.Norm al US findings. IUP w/+CA @ 164 bpmAdvised pt to f/u immediatel y if temp>101.; abdominal pain, vaginal bleeding greater than 1 pad/hr for greater than 2 hours; vaginal bleeding with or without cramping; bleeding w/clots; cramping like a period.f/u next routine appt [id number] ARI MCDUFFIE-[facility] [address] [place] [address] 10/22/2024 10:29:21 10/22/2024 12:38:09 screening 110910176 Z36.89 -- Patient was counseled on purpose, process and potential outcomes of NIPT and carrier screening. We discussed benefits, limitation s and accuracy of screenings . Alternativ es including, no testing, were reviewed. Patient was given the opportunit y to ask questions, which were addressed thoroughly . After confirming understand ing, patient provided verbal consent for NIPT and carrier screening. Morbid obesity 071202462 E66.01 Due to BMI, transfer care to [facility]--BMI at Confirmati on:BMI >50 with NO previous deliveries with us Transfer to [facility]. -- ACOG recommends TSH to be done at 1st OB if indicated: Symptoms, history of thyroid disease or thyroid peroxidase antibodies , family history, goiter, autoimmune disease, Type 1 DM, Infertilit y or recurrent miscarriag e, BMI >40 Essential hypertension 67476818 I10 -- Low dose Aspirin : 81 mg/day prophylaxi s is recommende d in women at high risk of preeclamps ia. Recommende d to be initiated at 12 weeks gestation. Risk Factors:(o ne present) CHTN(two present) Primiparit y (or interval of >10 years between pregnancie s), Obesity (BMI >30), Mother with hx of Pre-Eclamp steph -- CHTN or hx of Pre-E: baseline labs CMP, P/C Ratio, Uric Acid Gestation period, 10 weeks 89689128 Z3A.10 -- Guide: Previously given and reviewed. Toxoplasmo sis precaution s reviewed. Reviewed office visit schedule during . Reviewed Quickening and normal FHTs. Supraventr icular tachycardia 8574811 I47.10 Reports in college she had some runs of SVT. States she is controlled with the Metoprolol . Has not had any episodes in about 5 years. Transfer d ue to request for continuity of care [id number] 00117 Z76.89 Transfer to [facility] History of hypertension 522231418 Z86.79 Reviewed meds with patient High risk 4720 0007 O09.91 Health Concerns Section Related Observation LastModified by Organization Detai ls LastModified Time None Recorded Concern Status LastModified by Organization Details LastModified Time None Recorded Advance Directives Directive None Recorded Payers Encounter Date Sequence Insurance Name Policy Number Policy Brunson Covered Member ID Brunson Member ID Guarantor Name 09/06/2024 1 [employer] - [employer] BENEFITS (PPO) Laura Tushar [id number] Laura Tushar 09/06/2024 2 [place] [id number] 5 Izabela Arce [id number] Laura Tushar 09/17/2024 1 [employer] - [employer]ENEFITS (PPO) Laura Tushar [id number] Laura Tushar 09/17/2024 2 [place] [id number] 5 Izabela Arce [id number] Laura Tushar 09/24/2024 1 [employer] - [employer]ENEFITS (PPO) Laura Tushar [id number] Laura Tushra 09/24/2024 2 [place] [id number] 5 Izabela Arce [id number] Laura Tushar 10/04/2024 1 [employer] - [place]ENEFITS (PPO) Laura Tushar [id number] Laura Tushar 10/04/2024 2 [place] [id number] 5 Izabela Arce [id number] Laura Tushar 10/22/2024 1 [employer] - [place]ENEFITS (PPO) Laura Tushar [id number] Laura Tushar 10/22/2024 2 [place] [id number] 5 Izabela Arce [id number] Laura Tushar Notes Date Note Type Note Provider Name and Address Organization Details Recorded Time 09/06/2024 text/html Pt had a positiv e upt at home last Monday. She is too early for confirmation by ultrasound. Pt woke up with spotting, and having vaginal and abdominal pain. Pt also c/o nausea. STUART CHANDLER, [address] [place] [address], [place], [address], [facility] [employer] IV 09/06/2024 15:42:32 09/17/2024 text/html Laura is here for a f/u confirmation. Pt LMP was 07/12/24. She is too early for an ALBIN at this time. Pt c/o very mild cramping here and there, but nothing real bad. ARI MCDUFFIE-[facility], [place], [address], [facility] [employer] IV 09/17/2024 11:50:21 09/24/2024 text/html Pt completed a confirmation. She has been given the ALBIN of 05/16/25. Pt has started taking vitamins. She has no additional concerns. ARI MCDUFFIE- [address] [facility], [place], [address], [facility] [employer] [facility] IV 09/24/2024 10:27:46 10/04/2024 text/html Laura is here for cramping painspatient c/o cramping and missing FHR when she went to ERpatient pos UPT 09/07/2024 LMP 4Patient had confirmation u/s 09/17/2024 Yomaira Ramos, [facility] [address] [place], [address], [email or web address] 10/04/2024 20:02:37 10/22/2024 text/html Patient is here today for a routine OB visit. She is currently at {{6 7 8 9 10 11 12 13 14 15 16 17 18 19 20 21 22 23 24 25 26 27 28 29 30 31 32 33 34 35 36 37 38 39 40 41 10 .4#}} weeks gestation. vitamins: {{yes* no}} She {{has has not*}} felt movement.She states she gets nausea and vomiting, but denies any complaints of the presence of vaginal bleed, leaking fluid, abdominal cramps, headache or visual disturbances. CHUCKY MCDUFFIE [address] [place], [address], [facility] IV 10/22/2024 11:55:30 OBGyn Episode Ob Episode Information Episode Created Date Number of Fetuses Patient Bloodtype Patient rh Status Prepregnancy Weight lbs Domestic Partner Domestic Partner Phone Father Name Film Processor Status 10/22/19 25 1 A Positive OPEN Fetus Data First Name Last Name Admitted to NICU Weight (g) Sex Living Outcome Pediatric Complications Fetus ID Race Codes Race Delivery Type [id number] Problems Problem Notes Problem Name Start Date End Date Resolution Snomed Code Not e Essential hypertension 10/22/2024 642563 00 Supraventricular tachycardia 10/22/2024 5801775 Morbid obesity 10/22/2024 036205594 Asthma 10/22/2024 582373390 Albin Calculation Initial Albin Date Initial Exam Date Initial Exam Provider Initial Ultrasound Date Last Menstrual Period Date Ultra Sound Weeks Gestation 05/16/2025 10/22/2024 09/24/2024 0 Eighteen To Twenty Week Albin Update Ultra Sound Date Fundal Height At Umbil Quickening Date Ultra Sound Latest Weeks Gestation Final Albin Confirmed By Final Albin Confirmed Date Final Albin Date Ultra Sound Latest Days Gestation 0 0 Pre- Flowsheet Flowsheet Date 10/22/2024 Grayson Score Blood Edema Fundus Height Fundus Units Glucose Ketones Leukocytes Nitrite Labor Signs Protein Cervic Dilation Cervic Effacement Cervic Station none Type Weight in lbs Pre/Post Dialysis Refused With clothes 298.608644687228 BP Diastolic BP Location Tested BP Systolic BP Type 78 132 Fetus Heart Rate Present Fetus Movement Comments Complete transfer to [facility]. HT N, Asthma, Morbid obesity BMI 51.3, SVT. NOB labs, CHTN baseline labs, and Genetic testing done today. Low dose ASA recommended. Menstrual History Last Menstrual Date Menses Monthly On Bcp Conception Prior Menses Frequency Hcg Plus Date Menarche Onset Age Genetic Screening And Infection History Question Response Note Patient's Age Will Be 35 Years Or Older At Estim ated Date of Delivery false Personal or Family History o f Neural Tube Defect (Meningomyelocele, Spina Bifida, Or Anencephaly) false Personal or Family History of Congenital Heart D efect false Maternal Metabolic Disorder (eg, Type 1 Diabetes , PKU) false Recurrent Loss, Or A Stillbirth false Patient Or Partner Has History Of Genital Herpes false Prior GBS-infected child false History of HIV false History of Hepatitis false Genetic Carrier Screen positive false Delivery Information Delivery Date Delivery Type Labor Anesthesia Weeks Gestation Incision Type Labor Labor Length Hrs Delivered By Post Complications Tubal Sterilization Discharge Date Comments Discharge Information Feeding Method Contraceptive Method Maternal HG B and HCT Levels
--- OUTSIDE RECORDS SUMMARY | 2025-01-01 16:54 | XMS_ITS | Encounter Summary ---
Author Organization [facility] Address [address] [place] [address] Care Team Providers Care Side Laster Name Role Phone Albert Ruby MD Primary Care Provider [phone] Tremayne Shi MD Unavailable [phone] Encounter Details Date Type Department Care Team (Late st Contact Info) Description 10/03/2022 instruMagict Message Enc [facility] [place] [address] [place] [address] Albert Ruby MD [address] [address] Depression Medications Social History Tobacco Use Types [...] Sex Assigned at Female 10/02/2024 10:48 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 [address] [place] [address] EP Safekeeping Clerk CARDIOVASCULAR DISEASE 08/15/18 documented as of this encounter
--- OUTSIDE RECORDS SUMMARY | 2025-01-01 16:54 | XMS_ITS | Clinical Summary ---
Author Organization [facility] [employer] Address [address] [place] [address] Care Team Providers Care Commercial Sales Director Name Role Phone Albert Ruby MD Primary Care Provider [phone] Source Comments [facility],non-owned Affiliates and Associated Physician Practices is amultiple site organization consisting of ambulatory clinics and hospital sitesin [place], [place], [place] and [place]. This disclosure is being madepursuant to the Care Everywhere program and may not contain all information available regarding this patient. Last updated 18.[facility] [employer] Allergies Active Allergy Reactions Criticality Noted Date Comments Apple Nausea and/or Vomiting,Vomiting Low 01/05/2010 Beta-Galactosidase Other Medium 11/04/2010 vomiting--drinds small amounts without problems vomiting--drinds small amounts without problems vomiting--drinds small amounts without problems vomiting--drinds small amounts without problems vomiting--drinds small amounts without problems Other 11/04/2010 Apple juice vomiting Medications * Be aware that medications may not be up to date on this document. Alwaysverify current medications with the patient. aspirin EC (Ecotrin) 81 MG tablet Take 2 (two) tablets by mouth once daily Active vitamin D, ergocalciferol, (Drisdol) 1.25 MG (60703 UT) capsule Take 1 (one) capsule by mouth every 7 days 4 Active folic acid (Folvite) 1 MG tablet Take 1 (one) tablet by mouth once daily 4 Active sertraline (Zoloft) 50 MG tablet Take 1 (one) tablet by mouth once daily 5 Active Vit-Fe Fumarate-FA ( vitamin) 28-0.8 MG tablet Take 1 (one) tablet by mouth once daily Active ondansetron, disintegrating, (Zofran ODT) 4 MG tablet Active metoprolol succinate XL 24hr (Toprol XL) 100 MG tablet Take 2 (two) tablets by mouth once daily 180 tablet 3 5 Active NIFEdipine CR osmotic 24hr (Procardia XL) 30 MG tablet Take 1 (one) tablet by mouth 2 times daily 180 tablet 2 5 Active NIFEdipine CR 24hr (Adalat CC) 30 MG tablet Take 1 (one) tablet by mouth once daily Take on an empty stomach. 90 tablet 4 5 12/25/19 25 Discontinu ed(Dose Adjustment ) Active Problems Problem Noted Date Diagnosed Date Supervision of high risk in [facility] 12/24/2024 SVT (supraventricular tachycardia) 12/24/2024 Pre-diabetes 12/24/2024 Obesity affecting 11/08/2024 Chronic hypertension affecting 025 Fracture of tibia, distal, right, closed 013 GERD (gastroesophageal reflux disease) Overview (11/08/2024): since infancy Estimated Date of Delivery Comme nts Yes 05/16/2025 Based on Ultraso und Resolved Problems Problem Noted Date Diagnosed Date Resolved Date Pain from implanted hardware 10/31/2013 11/02/2013 Restless legs syndrome (RLS) 11/04/2010 12/24/2024 Encounters Date Type Department Care Team Description 12/24/2024 3:20 PM CDT visit [facility] [address] [place] [address] Ольга Breen APRN-FELICITAS GA: 19w4d 12/24/2024 1:00 PM CDT Procedure visit [facility] [address] [facility] [address] [place] [address] Encounter for anatomic survey (HCC) ; High-risk , second trimester (HCC); Maternal morbid obesity in second trimester, antepartum (HCC); Hypertension affecting in second trimester (HCC); Encounter for screening for cervical length (HCC) 12/24/2024 Travel 12/12/2024 Telephone [facility] [address] [place] [phone] Ольга Breen APRN-FELICITAS Coordination Of Care 12/11/2024 Telephone [facility] [address] [place] [phone]/LD Future Appointment; Coordination Of Care 12/09/2024 Telephone [facility] [address] [place] [phone] Tremayne Awad MD Coordination Of Care 12/06/2024 1:00 PM CDT visit [facility] [address] [place], [place] [address] [address] [place] [phone] Tremayne Awad MD GA: 17w0d 12/05/2024 Telephone [facility] [address] [place] [phone] Tremayne Awad MD Care 12/04/2024 2:45 PM CDT - 12/04/2024 11:59 PM CDT Hospital Encounter [facility] [address], [address] [place] [address] Rufino Platt MD Discharge Disposition: Home or Self Care 11/29/2024 Telephone [facility] [address] [place], [place] [address] [address] [place] [phone] Rufino Platt MD Coordination Of Care 11/19/2024 Refill [facility] [address] [place], [place] [address] [address] [place] [phone] Rufino Platt MD MEDICATION REFILL 11/08/2024 2:40 PM WIG DRESSER visit [facility] [address] [place] [address] Rufino Platt MD GA: 13w0d 11/08/2024 1:14 PM WIG DRESSER - 11/08/2024 11:59 PM WIG DRESSER Hospital Encounter [facility] MATERNAL/ EVALUATION UNIT [address] [place] [address] Tremayne Awad MD Discharge Disposition: Home or Self Care 11/08/2024 Travel 10/24/2024 Telephone [facility] [address] [place] [address] [facility] Appointment from Last 3 Months Immunizations Immunization Administration Dates Next Due [facility] primary monoval ent 12+ yr 0.3mL Purple cap 05/13/2021,02/23/2021 DTAP, HISTORIC VACCINE 04/18/2005 DTAP/IPV 04/18/2005, 1,01/18/2000,12/05 DTaP VACCINE IM (6wk-6yrs) 03/26/2001,,01/18/2000,12/05 FLU VACCINE QUAD IIV4 SPLIT 0.25 ML IM 0 FLU, HISTORIC VACCINE 06/16/2010 HEP B VACCINE 03/26/2001,01/13/2000 HEP B VACCINE, PED/ADOL 12/22/2000,07/03,04/17/2000,03/17 HIB VACCINE 03/26/2001, 1,03/17/2000,01/17,1999 Human Papilloma Virus Malorie valent Vaccine 05/01/2013,08/22/2011 INFLUENZA VACCINE 06/11/2024,05/12/2020 MENINGOCOCCAL ACWY (MCV4P) VAC IM 04/19/2017 MENINGOCOCCAL ACWY MENVEO 08/22/2011 MENINGOCOCCAL B VACCINE 08/02/2017,04/19/2017 MENINGOCOCCAL VACCINE 08/22/2011 MMR VACCINE 04/18/2005,12/22/2000 MMR/VARICELLA 04/15/2005,12/22/2000 Meningococcal B Recombinant 2 Dose, IM 7,04/19/2017 PNEUMOCOCCAL PCV7 CONJ, PEDS 03/26/2001,07/03/20 00,01/18/2000 POLIO IPV 03/26/2001,01/18/2000,1999 POLIO OPV 04/18/2005 POLIO,HISTORIC VACCINE 04/18/2005 TDAP, HISTORIC VACCINE 05/01/2013 VARICELLA 12/22/2000 VARICELLA VACCINE 09/11/2006 Family History Medical History Relation Name Comments Anesthesia Reaction Father Fever 10 4 (resolved after 8 hours) dad denies any dx of MH Sleep Disorder-RLS Maternal Grandfather snore Sleep Disorder-RLS Maternal Grandmother sleep apnea on oxygen Sleep Disorder-RLS Mother snore ADHD Sister Relation Name Status Comments Father Maternal Grandfather snore Alive Maternal Grandmother sleep apnea on oxygen Alive Mother snore Alive Sister Social History Tobacco Use Types Packs/Day Years Used Date Smoking Tobacco: Never Tobacco Cessation:Counseling Given: Not Answered Alcohol Use Standard Drinks/Week Comments No 0 (1 standard drink = 0.6 oz pur e alcohol) PHQ-2 Answer Date Recorded Patient Health Questionnaire-2 Score 0 12/23/2024 Education Answer Date Recorded What is the highest level of school you have completed or the highest degree you have received? 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 & W/[employer] Not on file Not on file Not on file Last Filed Vital Signs Vital Sign Reading Time Taken Comments Blood Pressure 136/80 12/24/2024 2:34 PM CDT MANUAL (UPPER LEFT ARM) Pulse 66 12/24/2024 2:20 PM CDT Temperature 36.1 C (97 F) 11/04/2013 1:16 PM WIG DRESSER Respiratory Rate 16 11/04/2013 2:45 PM WIG DRESSER Oxygen Saturation 99% 12/06/2024 1:1 7 PM CDT Inhaled Oxygen Concentration - - Weight 131.1 kg (289 lb) 12/24/2024 2:2 0 PM CDT Height 162.6 cm (5' 4 ) 12/24/2024 2:20 PM CDT Body Mass Index 49.61 12/24/2024 2:20 PM CDT Plan of Treatment Upcoming Encounters Date Type Department Care Team (Late st Contact Info) Description 01/14/2025 1:00 PM CDT Procedure visit [facility] [address] [place] [address] 01/14/2025 2:00 PM CDT visit [facility] [address] [place] [address] Health Maintenance Due Date Last Done Comments PNEUMOCOCCAL VACCINE (1 of 1 - PPSV23) 2005 03/26/2001, 07/03/2000, 01/18/2000 HIV SCREENING 2014 DTAP/TDAP/TD VACCINES (7 - T d or Tdap) 05/01/2023 05/01/2013, 04/18/2005, 04/18/2005, Additional history exists COVID-19 VACCINE (2023-2 5 season) 2024 05/13/2021, 02/23/2021 OB-ONE HOUR GLUCOSE 02/07/2025 11/19/2024 OB-TDAP CURRENT 02/14/2025 05/01/2013 CHLAMYDIA/GONORRHEA SCREENING 12/24/2025, 11/19/2024, 09/08/2022, Additional history exists PAP SMEAR 12/02/2026 12/03/2023 ZOSTER VACCINE (1 of 2) 2049 HEPATITIS B VACCINE Completed 03/26/2001, 12/22/2000, 07/03/2000, Additional history exists HIB VACCINE Completed 03/26/2001, 12/10, 03/17/2000, Additional history exists HPV VACCINE Completed 05/01/2013, 08/22/2011 MENINGOCOCCAL GROUPS A/C/Y/W VACCINE Completed 04/19/2017, 08/22/2011, 08/22/2011 MENINGOCOCCAL (Group B) VACC INE SHARED DECISION-MAKING Completed 08/02/2017, 08/02/2017, 04/19/2017, Additional history exists HEPATITIS C SCREENING Completed 04/25/2024 INFLUENZA VACCINE Completed 06/11/2024, , 06/05/2020, Additional history exists DEPRESSION SCREENING Completed 12/06/2024 Respiratory Syncytial Virus (RSV) Vaccine Pt: or over 60 yrs (No Doses Required) Completed Medical Devices Explanted Type Area Insurance Consultant Device Identifier Shelf Expiration Date Model / Serial / Lot Wire K Ster .035 - Sn/A Explanted:Qty: 1 by Katty Storey MD at [facility] Right: Ankle [employer] 1600-635 / N/A / N/A Scrw [place] Sh Thrd 4.0mm X 42mm Explanted:Qty: 1 on 07/08/2013 at [facility] [employer] 2 / / Scrw [place] Sh Thrd 4.0mm X 40mm Explanted:Qty: 1 on 07/08/2013 at [facility] / / Gwire .078 X 9 - Sn/A Implanted:Qty: 1 on 07/08/2013 by Katty Storey MD at [facility] Explanted:Qty: 1 on 11/04/2013 at [facility] Right: Ankle [id number] / N/A / N/A Gwire Acutrak Plus Thrd .063 X 9 - Sn/A Implanted:Qty: 1 on 07/08/2013 by Katty Storey MD at [facility] Explanted:Qty: 1 on 11/04/2013 at [facility] Right: Ankle [id number] / N/A / N/A Procedures Procedure Name Priority Date/Time Associated Diagnosis Comments CHLAMYDIA AND N. GONORRHOEAE BORIS Routine 12/24/2024 4:05 PM CDT Supervision of high risk in second trimester (HCC) ALPHA FETOPROTEIN BLOOD MATERNAL Routine 12/24/2024 3:22 PM CDT High-risk , second trimester (HCC) URINALYSIS AUTO - POINT OF CARE (AMB) [facility] Routine 12/24/2024 2:44 PM CDT High-risk , second trimester (HCC) SONOGRAM - COMPLETE Routine 12/24/2024 1 :05 PM CDT High-risk , second trimester (HCC) Maternal morbid obesity in second trimester, antepartum (HCC) Hypertension affecting in second trimester (HCC) Encounter for anatomic survey ([facility]) Encounter for screening for cervical length ([facility]) URINALYSIS - POINT OF CARE (AMB) [facility] Routine 12/06/2024 1:52 PM CDT High-risk , second trimester ECHO COMPLETE Routine 12/04/2024 3:24 PM CDT 13 weeks gestation of Hypertension affecting in first trimester Obesity affecting in first trimester, unspecified obesity type Paroxysmal SVT (supraventricular tachycardia) CREATININE CLEARANCE URINE TIMED + BLOOD Routine 12/04/2024 9:30 AM CDT 13 weeks gestation of Hypertension affecting in first trimester PROTEIN CREATININE RATIO URINE TIMED PNL Routine 12/04/2024 9:30 AM CDT 13 weeks gestation of Hypertension affecting in first trimester GTT 1 HR (50G) GESTATIONAL SCREEN Routine 11/19/2024 9:12 AM CDT Obesity affecting in first trimester, unspecified obesity type URINALYSIS - POINT OF CARE (AMB) [facility] Routine 11/08/2024 3:02 PM WIG DRESSER 13 weeks gestation of SONOGRAM - COMPLETE Routine 11/08/2024 1 :46 PM WIG DRESSER Establish gestational age, ultrasound PAP 2 OR MORE SLIDES Routine 12/03/2023 12:00 AM CDT from Last 3 Months or Most Recently Relevant to Health Maintenance Results * CHLAMYDIA AND N. GONORRHOEAE BORIS (12/24/2024 4:05 PM CDT) Chlamydia by BORIS NEGATIVE NEGATIVE 12/25/2024 9:21 PM CDT [facility] MICROBIOLOG[facility] Neisseria gonorrhoeae BORIS NEGATIVE NEGATIVE 12/25/2024 9:21 PM CDT [facility]CRO[facility] Microbiology URINE / Unknown Collection / Unknown 12/24/2024 4:05 PM CDT 12/24/2024 4:19 PM CDT Ольга Breen APRN-SUPERVISOR [facility] - MICROBIOLOGY ORD ERABLES Final Result [facility] [address] [place] [address], [facility] [phone] * ALPHA FETOPROTEIN BLOOD MATERNAL (12/24/2024 3:22 PM CDT) Interpretation [facility] Comment: Screen negative for open NTD. MSAFP Risk Open NTD 1 IN 908 [facility] MSAFP 60.1 ng/mL [facility] Adjusted Multiple of Median 1.59 [facility] Comments [facility] Comment: This patient's ALBIN (estimated date of delivery) was used to calculate the gestational age. The AFP test result indicates that this patient is screen negative for open NTD. It should be noted that normal test results can never guarantee the of a normal baby and that 2-3% of newborns have some type of physical or mental defect, many of which are undetectable through any known diagnostic technique. [facility] See Below [facility] Comment: This is a screening test, not a diagnostic test. This risk assessment report is based in part on demographic data provided by the ordering physician. Please notify the laboratory promptly if any data are incorrect. For assistance with recalculations, please call your local [facility] laboratory. For assistance with interpretation of these results, please contact your Local [facility] genetic counselor or call [phone]). Interpretive Cutoffs Screen Positive for Open NTD: > or = 2.50 adjusted MOM > or = 1.90 adjusted MOM for insulin-dependent diabetics > or = 4.00 adjusted MOM for twins > or = 3.50 adjusted MOM for twins insulin-dependent diabetics > or = 4.50 adjusted MOM for triplets For additional information, please refer to http://education.StubHub/faq/QUX96v9 (This link is being provided for informational/ educational purposes only.) Gestational Age 19.6 weeks [facility] Patient Weight 289 lbs [facility] ALBIN 05/16/2025 [facility] ALBIN Determined By ULTRASOUND [facility] Race [facility] Number of Fetuses 1 [facility] Insulin Dependent Diabetic NO [facility] Repeat Specimen NO [facility] History Neural Tube Defect NO [facility] History of Down Syndrome NO [facility] Donor Egg NO [facility] Donor Age Egg Retrieval NOT GIVEN [facility] Comment: Test Performed at: [facility] [address] [address] JUAN BARBA Blood BLOOD SPECIMEN / Unknown 12/24/2024 3:22 PM CDT 12/24/2024 3:22 PM CDT Ольга Breen APRN-SUPERVISOR [facility] LAB - CHEMISTRY ORDERA BLES Final Result [facility] [address] [place] [address] * URINALYSIS AUTO - POINT OF CARE (AMB) [facility] (12/24/2024 2:44 PM CDT) Glucose UA NEG [facility] [address] Bilirubin UA POCT NEG [facility] [address] Ketones UA POCT NEG [facility] [address] Specific [place]strom UA 1.[address] [facility] [address] Blood Urine POCT NEG [facility] [address] pH UA 5.0 [facility] [address] Protein UA TRACE [facility] [address] Urobilinogen UA NEG [facility] [address] Nitrite UA NEG [facility] [address] WBC UA NEG [facility] [address] Urine URINE / Unknown 12/24/2024 2 :44 PM CDT Ольга Breen APRN-SUPERVISOR RECL[facility]ATION LAB - POINT OF CARE OR DERABLES Final [place] [address], [facility] [phone] * SONOGRAM - COMPLETE (12/24/2024 1:05 PM CDT) Only the most recent of2 resultswithin the time period is included. Linked Results Indication ======== Anatomic survey Obesity Class IV Chronic hypertension, no meds Asthma History ====== OB History 1. Para 0 Lab Tests Test Date Result NIPT Low risk, Male Maternal Assessment Physical Exam Height 163 cm, 5 ft 4 in. Weight 131 kg, 289 lb. Initial weight 135 kg, 298 lb. BMI 49.61 kg/m . Initial BMI 51.15 kg/m . Weight gain -4 kg, -9 lb Method ====== Transabdominal and transvaginal ultrasound. View: Challenging acoustic properties ========= Haddad . Number of fetuses: 1 Dating ====== Date Details Gest. age ALBIN Stated ALBIN 19 w + 4 d 05/16/2025 Previous U/S 09/24/2024 GA, GA 6 w + 4 d 19 w + 4 d 05/16/2025 U/S 12/24/2024 based upon AC, BPD, Femur, HC 19 w + 4 d 05/16/2025 Assigned dating based on ultrasound (GA), selected on 11/08/2024 19 w + 4 d 05/16/2025 General Evaluation Cardiac activity present. FHR 132 bpm. movements: visualized. Presentation: cephalic Placenta: Placental site: posterior Umbilical cord: Cord vessels: 3 vessel cord. Insertion site: suboptimal Amniotic fluid: Amount of AF: normal. MVP 3.5 cm Biometry BPD 45.9 mm 19w 6d 63% Hadlock HC 166.9 mm 19w 3d 33% Hadlock Cerebellum tr 20.1 mm 64% [place] Nuchal fold 3.9 mm AC 140.5 mm 19w 3d 40% Hadlock Femur 30.6 mm 19w 3d 39% Hadlock Humerus 28.7 mm 19w 2d 43% Rubio HC / AC 1.19 17w 5d 64% Hadlock Weight Calculation: EFW 294 g 38% Hadlock EFW (lb,oz) 0 lb 10 oz EFW by Hadlock ([id number]) appropriate Growth Overview Exam date GA BPD (mm) HC (mm) AC (mm) FL (mm) HL (mm) EFW (g) 12/24/2024 19w 4d 45.9 63% 166.9 33% 140.5 40% 30.6 39% 28.7 43% 294 38% Anatomy The following structures appear normal: Head / Neck Cranium. Lateral ventricles. Choroid plexus. Midline falx. Cerebellum. Cisterna magna. Thalami. Nuchal fold. Face Lips. Nose. Orbits. Heart / Thorax 3-vessel view. Situs. Aortic arch view. Bicaval view. Ductal arch view. Diaphragm. Abdomen Cord insertion. Stomach. Kidneys. Bladder. Bowel. Genitals. Spine Cervical spine. Thoracic spine. Lumbar spine. Sacral spine. Extremities / Skeleton Arms. Hands. Legs. The following structures could not be adequately visualized: Head / Neck Cavum septi pellucidi. Face Profile. Nasal bone. Heart / Thorax 4-chamber view. RVOT view. LVOT view. [id number] view. Great vessels. Right lung. Left lung. Extremities / Skeleton Feet. sex: male. Maternal Structures Cervix reassuring Approach - Transvaginal: Cervical length 3.80 cm Right Ovary Normal Left Ovary Normal Impression ========= Single live intrauterine at 19w 4d The size is within normal limits The amniotic fluid volume is normal Normal range transvaginal cervical length Incomplete anatomy survey No major malformations are detected at this time Comment ======== Imaging of the anatomy is limited by challenging acoustic properties (BMI ~49) and by position, and portions of the anatomy survey were not completed today. No major malformations are detected at this time, within the limitations of ultrasound examination. Follow-up ======== Follow up ultrasound in 4 weeks to complete the anatomy survey and assess growth. Coding ====== Procedures 21898: US Preg Uterus Detailed 72304: US Preg [facility]terus [facility] Anatomical Region Laterality Modality Other 12/24/2024 1:05 PM CDT Chayito Awad MD [facility] ORDERABLES Edited Result - Final * URINALYSIS - POINT OF CARE (AMB) [facility] (12/06/2024 1:52 PM CDT) Only the most recent of2 resultswithin the time period is included. Pathologist [facility] Specific [place] UA 1.[address] [facility] [address] pH UA 5 [facility] [address] WBC UA n [facility] [address] Nitrite UA n [facility] [address] Protein UA n [facility] [address] Glucose UA n [facility] [address] Ketones UA POCT n [facility] [address] Urobilinogen UA n [facility] [address] Bilirubin UA POCT n [facility] [address] Blood Urine POCT n [facility] [address] Urine URINE / Unknown 12/06/2024 1 :52 PM CDT Tremayne Awad MD LAB - POINT OF CARE ORDERABLES Final Result [facility] [address] [place] [address], [facility] [phone] * ECHO COMPLETE (12/04/2024 3:24 PM CDT) IVSd 2D 1.173 cm SSM CV FUJ I PACS LVIDd 4.853 cm SSM CV FUJ I PACS LVIDs 3.135 cm SSM CV FUJ I PACS LVOT diam 2.009 cm SSM CV FUJ I PACS LVPWd 1.185 cm SSM CV FUJ I PACS LV A4C EF 59.812 % SSM CV FUJ I PACS LV EDV A4C 100.021 ml SSM CV FU JI PACS LV ESV A4C 40.196 ml SSM CV FU JI PACS LVOT pk grad 5.349 mmHg SSM CV FUJI PACS LVOT pk bunny 115.645 cm/s SSM CV F UJI PACS LVOT VTI 26.402 cm SSM CV FUJ I PACS RV-olivas basal diam 3.092 cm SSM CV FUJI PACS LA size 4.234 cm SSM CV FUJ I PACS LA vol BP 88.388 ml SSM CV [facility] I PACS RA area 17.475 cm SSM CV FUJI PACS AV area pk bunny 2.246 cm SSM CV FUJI PACS AV area cont VTI 2.236 cm SSM CV FUJI PACS AV pk grad 10.658 mmHg SSM CV FU JI PACS AV mn grad 5.979 mmHg SSM CV FU JI PACS AV pk bunny 163.23 cm/s SSM CV FUJ I PACS AV VTI 37.438 cm SSM CV FUJ I PACS MV A pk bunny 56.108 cm/s SSM CV F UJI PACS MV E pk bunny 106.254 cm/s SSM CV F UJI PACS MV E' lateral bunny 24.089 cm/s SS M CV FUJI PACS TAPSE 3.063 cm SSM CV FUJ I PACS TR pk bunny 240.482 cm/s SSM CV [facility] I PACS Ascending aorta 2.34 cm SSM CV FUJI PACS IVC Diam Expiration 1.524 cm SSM CV FUJI PACS AV area index 0.905 cm /m SSM CV FUJI PACS LA vol index 0.036 l/m SSM CV FUJI PACS Dimensionless Index 0.705 unitless SSM CV FUJI PACS Myocardial strain charge 2 unitless SSM CV FUJI PACS Anatomical Region Laterality Modality Ultrasound 12/04/2024 4:13 PM CDT Narrative 12/04/2024 10:12 PM CDT Summary * The left ventricle is normal in size. * Left ventricular systolic function is normal with an estimated ejection fraction of 70%. * The left ventricular diastolic function is normal. * Left ventricular segmental wall motion is normal. * Left ventricular wall thickness is mildly increased. * The left atrium is moderately dilated. * The pulmonary artery systolic pressure is normal. * There is > 50% collapse of the IVC upon inspiration with an estimated right atrial pressure of 5 mmHg. Patient Info Name: Laura Finley Age: 24 years : 2000 Gender: Female Ht: 64 in Wt: 280 lb BSA: 2.47 m2 HR: 58 bpm BP: 144 / 87 mmHg Exam Date: 12/04/2024 4:13 PM Patient Status: O/P Study Site: [facility] Primary Location: [facility] EStudy Info Technical Quality: Fair Exam Type: ECHO COMPLETE Indications Z3A.13 - 13 weeks gestation of ([facility]) I47.10 - Paroxysmal SVT (supraventricular tachycardia) ([facility]) O99.211 - Obesity affecting in first trimester, unspecified obesity type ([facility]) O16.1 - Hypertension affecting in first trimester ([facility]) Procedure(s) * A complete 2D, color Doppler, spectral Doppler, and M-Mode transthoracic echocardiogram was performed. * Parasternal long axis, Parasternal short axis, Apical 4 chamber view, Apical 2 chamber view, Apical long axis, Subcostal 4 chamber view and Suprasternal view(s) obtained during the procedure. Reason for Technically Difficult Study: poor echocardiographic windows, body habitus Staff Referring Physician: Rufino Platt Ordering Provider: Rufino Platt Attending Physician: Rufino Platt Hand Ii Thermal Cutter: Lore Chavez Left Ventricle The left ventricle is normal in size. Left ventricular segmental wall motion is normal. The left ventricular diastolic function is normal. Left ventricular systolic function is normal with an estimated ejection fraction of 70%. Left ventricular wall thickness is mildly increased. Right Ventricle The right ventricle is normal in size. Right ventricular systolic function is normal. Left Atrium The left atrium is moderately dilated. Right Atrium The right atrium is normal in size. Atrial Septum Intact interatrial septum visualized by 2D and color Doppler imaging. Aortic Valve The aortic valve is trileaflet. There is no aortic valve stenosis. There is no aortic valve regurgitation. Pulmonic Valve The pulmonic valve is normal. There is no pulmonic regurgitation. Mitral Valve The mitral valve is normal. There is no mitral valve stenosis. There is trace mitral valve regurgitation. Tricuspid Valve The tricuspid valve is normal. There is trace tricuspid valve regurgitation. The pulmonary artery systolic pressure is normal. Inferior Vena Cava The inferior vena cava is normal in size (< 2.1 cm). There is > 50% collapse of the IVC upon inspiration with an estimated right atrial pressure of 5 mmHg. Pericardium/Pleural There is no pericardial effusion. Aorta The aortic root at the sinus of Valsalva is normal in size. The ascending aorta is normal in size. Measurements Left Ventricular Outflow Tract Name Value Normal LVOT 2D LVOT Diameter 2.0 cm LVOT Area 3.2 cm2 LVOT Doppler LVOT Peak Velocity 1.2 m/s LVOT Peak Gradient 5 mmHg LVOT Mean Velocity 77.08 cm/s LVOT Mean Gradient 3 mmHg LVOT VTI 26.4 cm LVOT VTI/AV VTI Ratio 0.7 LVOT Stroke Volume 84 ml LVOT Stroke Volume Index 34 ml/m2 35-58 LVOT CO 4.8 l/min LVOT CI 2.0 l/min/m2 Pulmonic Valve Name Value Normal PV Doppler PV Accel Time 144.62 ms Mitral Valve Name Value Normal MV Doppler MV PHT 84 ms MV Area (PHT) 2.63 cm2 4.00-5.00 MV Diastolic Function MV E Peak Velocity 1.1 m/sec MV A Peak Velocity 0.6 m/sec MV E/A 1.9 MV Decel Time (PW) 289 ms MV Annular TDI MV Septal e' Velocity 10 cm/s >=8 MV E/e' (Septal) 11 <=8 MV Lateral e' Velocity 24 cm/s >=10 MV E/e' (Lateral) 4 <=8 MV e' Average 17 cm/s MV E/e' (Average) 8 Tricuspid Valve Name Value Normal TV Regurgitation Doppler TR Peak Velocity 2.4 m/s TR Peak Gradient 23 mmHg Estimated PAP/RSVP RA Pressure 5 mmHg <=5 PA Systolic Pressure 28 mmHg <35 RV Systolic Pressure 28 mmHg <36 TV Diastolic Function TV E Peak Velocity 0.8 m/sec TV Annular TDI TV Lateral Eleanor s' Velocity 12 cm/s 10-19 Aorta Name Value Normal Ascending Aorta Ao Root Diameter (2D) 2.6 cm Ao Root Diam Index (2D) 1.1 cm/m2 Asc Ao Diameter 2.3 cm 1.9-3.5 Asc Ao Diameter Index 0.9 cm/m2 1.0-2.2 Venous Name Value Normal IVC/SVC IVC Diameter 1.5 cm <=2.1 Aortic Valve Name Value Normal AV 2D/MM AV Cusp Separation (2D) 1.4 cm AV Doppler AV Peak Velocity 1.63 m/s AV Peak Gradient 11 mmHg AV Mean Gradient 6 mmHg AV VTI 37 cm AV Area (Cont Eq VTI) 2.24 cm2 >=2.00 AV Area (Cont Eq Bunny) 2.25 cm2 AV DI (VTI) 0.71 AV DI (Bunny) 0.71 AV Regurgitation 2D LVOT Area 3.17 cm2 Ventricles Name Value Normal LV Dimensions 2D/MM IVS Diastolic Thickness (2D) 1.2 cm 0.6-0.9 LVID Diastole (2D) 4.9 cm 3.8-5.2 LVPW Diastolic Thickness (2D) 1.2 cm 0.6-0.9 LVID Systole (2D) 3.1 cm 2.2-3.5 LV Mass (2D Cubed) 217 g 67-162 LV Mass Index (2D Cubed) 88 g/m2 43-95 Relative Wall Thickness (2D) 0.49 <=0.42 LV Fractional Shortening/Ejection Fraction 2D/MM LV Fractional Shortening (2D) 35 % 27-45 LV EF (2D Teicholz) 65 % 54-74 LV Diastolic Volume (4C MOD) 100 ml LV EF (4C MOD) 60 % LV Diastolic Length (4C) 8.2 cm LV Systolic Length (4C) 7.2 cm LV Stroke Volume (4C MOD) 60 ml RV Dimensions 2D/MM RV Basal Diastolic Dimension 3.1 cm 2.5-4.1 RV Diastolic Length (4C) 7.1 cm 5.9-8.3 TAPSE 3.1 cm >=1.7 Atria Name Value Normal LA Dimensions LA Dimension (2D) 4.2 cm 2.7-3.8 LA Dimen Index (2D) 1.7 cm/m2 LA Volume (BP MOD) 88 ml LA Volume Index (BP MOD) 36 ml/m2 16-34 RA Dimensions RA Area (4C) 17 cm2 <=18 RA Area (4C) Index 7 cm2/m2 RA ESV (4C MOD) 46 ml 15-27 RA ESV Index (4C MOD) 19 ml/m2 16-34 Report Signatures Finalized by Velasquez Lynn on 12/04/2024 10:12 PM Procedure Note Velasquez Lynn MD - 12/04/2024 Summary * The left ventricle is normal in size. * Left ventricular systolic function is normal with an estimatedejection fraction of 70%. * The left ventricular diastolic function is normal. * Left ventricular segmental wall motion is normal. * Left ventricular wall thickness is mildly increased. * The left atrium is moderately dilated. * The pulmonary artery systolic pressure is normal. * There is > 50% collapse of the IVC upon inspiration with anestimated right atrial pressure of 5 mmHg. Patient Info Name: Laura Finley Age: 24 years : 2000 Gender: Female Ht: 64 in Wt: 280 lb BSA: 2.47 m2 HR: 58 bpm BP: 144 / 87 mmHg Exam Date: 12/04/2024 4:13 PM Patient Status: O/P Study Site: [facility] Primary Location: [facility] EStudy Info Technical Quality: Fair Exam Type: ECHO COMPLETE Indications Z3A.13 - 13 weeks gestation of ([facility]) I47.10 - Paroxysmal SVT (supraventricular tachycardia) ([facility]) O99.211 - Obesity affecting in first trimester,unspecified obesity type ([facility]) O16.1 - Hypertension affecting in first trimester ([facility]) Procedure(s) * A complete 2D, color Doppler, spectral Doppler, and M-Modetransthoracic echocardiogram was performed. * Parasternal long axis, Parasternal short axis, Apical 4 chamberview, Apical 2 chamber view, Apical long axis, Subcostal 4 chamber view and Suprasternal view(s) obtained during the procedure. Reason for Technically Difficult Study: poor echocardiographicwindows, body habitus Staff Referring Physician: Rufino Platt Ordering Provider: Rufino Platt Attending Physician: Rufino Platt Hand Ii Thermal Cutter: Lore Chavez Left Ventricle The left ventricle is normal in size. Left ventricular segmental wallmotion is normal. The left ventricular diastolic function is normal. Leftventricular systolic function is normal with an estimated ejection fraction of 70%.Left ventricular wall thickness is mildly increased. Right Ventricle The right ventricle is normal in size. Right ventricular systolicfunction is normal. Left Atrium The left atrium is moderately dilated. Right Atrium The right atrium is normal in size. Atrial Septum Intact interatrial septum visualized by 2D and color Doppler imaging. Aortic Valve The aortic valve is trileaflet. There is no aortic valve stenosis. Thereis no aortic valve regurgitation. Pulmonic Valve The pulmonic valve is normal. There is no pulmonic regurgitation. Mitral Valve The mitral valve is normal. There is no mitral valve stenosis. Thereis trace mitral valve regurgitation. Tricuspid Valve The tricuspid valve is normal. There is trace tricuspid valveregurgitation. The pulmonary artery systolic pressure is normal. Inferior Vena Cava The inferior vena cava is normal in size (< 2.1 cm). There is > 50%collapse of the IVC upon inspiration with an estimated right atrial pressure of 5mmHg. Pericardium/Pleural There is no pericardial effusion. Aorta The aortic root at the sinus of Valsalva is normal in size. Theascending aorta is normal in size. Measurements Left Ventricular Outflow Tract Name Value Normal LVOT 2D LVOT Diameter 2.0 cm LVOT Area 3.2 cm2 LVOT Doppler LVOT Peak Velocity 1.2 m/s LVOT Peak Gradient 5 mmHg LVOT Mean Velocity 77.08 cm/s LVOT Mean Gradient 3 mmHg LVOT VTI 26.4 cm LVOT VTI/AV VTI Ratio 0.7 LVOT Stroke Volume 84 ml LVOT Stroke Volume Index 34 ml/m2 35-58 LVOT CO 4.8 l/min LVOT CI 2.0 l/min/m2 Pulmonic Valve Name Value Normal PV Doppler PV Accel Time 144.62 ms Mitral Valve Name Value Normal MV Doppler MV PHT 84 ms MV Area (PHT) 2.63 cm2 4.00-5.00 MV Diastolic Function MV E Peak Velocity 1.1 m/sec MV A Peak Velocity 0.6 m/sec MV E/A 1.9 MV Decel Time (PW) 289 ms MV Annular TDI MV Septal e' Velocity 10 cm/s >=8 MV E/e' (Septal) 11 <=8 MV Lateral e' Velocity 24 cm/s >=10 MV E/e' (Lateral) 4 <=8 MV e' Average 17 cm/s MV E/e' (Average) 8 Tricuspid Valve Name Value Normal TV Regurgitation Doppler TR Peak Velocity 2.4 m/s TR Peak Gradient 23 mmHg Estimated PAP/RSVP RA Pressure 5 mmHg <=5 PA Systolic Pressure 28 mmHg <35 RV Systolic Pressure 28 mmHg <36 TV Diastolic Function TV E Peak Velocity 0.8 m/sec TV Annular TDI TV Lateral Eleanor s' Velocity 12 cm/s 10-19 Aorta Name Value Normal Ascending Aorta Ao Root Diameter (2D) 2.6 cm Ao Root Diam Index (2D) 1.1 cm/m2 Asc Ao Diameter 2.3 cm 1.9-3.5 Asc Ao Diameter Index 0.9 cm/m2 1.0-2.2 Venous Name Value Normal IVC/SVC IVC Diameter 1.5 cm <=2.1 Aortic Valve Name Value Normal AV 2D/MM AV Cusp Separation (2D) 1.4 cm AV Doppler AV Peak Velocity 1.63 m/s AV Peak Gradient 11 mmHg AV Mean Gradient 6 mmHg AV VTI 37 cm AV Area (Cont Eq VTI) 2.24 cm2 >=2.00 AV Area (Cont Eq Bunny) 2.25 cm2 AV DI (VTI) 0.71 AV DI (Bunny) 0.71 AV Regurgitation 2D LVOT Area 3.17 cm2 Ventricles Name Value Normal LV Dimensions 2D/MM IVS Diastolic Thickness (2D) 1.2 cm 0.6-0.9 LVID Diastole (2D) 4.9 cm 3.8-5.2 LVPW Diastolic Thickness (2D) 1.2 cm 0.6-0.9 LVID Systole (2D) 3.1 cm 2.2-3.5 LV Mass (2D Cubed) 217 g 67-162 LV Mass Index (2D Cubed) 88 g/m2 43-95 Relative Wall Thickness (2D) 0.49 <=0.42 LV Fractional Shortening/Ejection Fraction 2D/MM LV Fractional Shortening (2D) 35 % 27-45 LV EF (2D Teicholz) 65 % 54-74 LV Diastolic Volume (4C MOD) 100 ml LV EF (4C MOD) 60 % LV Diastolic Length (4C) 8.2 cm LV Systolic Length (4C) 7.2 cm LV Stroke Volume (4C MOD) 60 ml RV Dimensions 2D/MM RV Basal Diastolic Dimension 3.1 cm 2.5-4.1 RV Diastolic Length (4C) 7.1 cm 5.9-8.3 TAPSE 3.1 cm >=1.7 Atria Name Value Normal LA Dimensions LA Dimension (2D) 4.2 cm 2.7-3.8 LA Dimen Index (2D) 1.7 cm/m2 LA Volume (BP MOD) 88 ml LA Volume Index (BP MOD) 36 ml/m2 16-34 RA Dimensions RA Area (4C) 17 cm2 <=18 RA Area (4C) Index 7 cm2/m2 RA ESV (4C MOD) 46 ml 15-27 RA ESV Index (4C MOD) 19 ml/m2 16-34 Report Signatures Finalized by Velasquez Lynn on 12/04/2024 10:12 PM Result [facility] Rufino Platt MD ECHO CUPID Final Result * PROTEIN CREATININE RATIO URINE TIMED PNL (12/04/2024 9:30 AM CDT) Creatinine 24 Hour Urine 1.09 0.50 - 2.15 g/24 h [facility] Protein 24 Hour Urine 99 <150 mg/g creat [facility] Protein/Creatini ne Ratio 0.099 <0.150 mg/mg creat [facility] Protein 24 Hour Urine 108 <150 mg/24 h [facility] Comment: TOTAL URINE VOLUME: 1200/24 REPORT COMMENT: FASTING:YES Test Performed at: [facility] [id number] [address] KENJI ZURITA MD Urine TIMED URINE SPECIMEN / Unknown 12/04/2024 9:30 AM CDT 12/04/2024 9:30 AM CDT Rufino Platt MD LAB - URINE CHEMISTRY ORDERABLE S Final Result [place] [id number] [place] [id number] * CREATININE CLEARANCE URINE TIMED + BLOOD (12/04/2024 9:30 AM CDT) Creatinine 0.56 0.50 - 0.96 mg/dL [facility] eGFR by Cystatin C 130 > OR = 60 mL/min/1.7 3m2 [facility] Creatinine 24 Hour Urine 1.09 0.50 - 2.15 g/24 h [facility] Body Surface Area 2.29 [facility] Creatinine Clearance 102 75 - 115 mL/min [facility] Height Feet 5 ft [facility] Height Inches 4 in [facility] Weight Lbs 290 [facility] Comment: Test Performed at: [facility] [id number] [address] KENJI ZURITA MD Urine TIMED URINE SPECIMEN / Unknown 12/04/2024 9:30 AM CDT 12/04/2024 9:30 AM CDT us Rufino Platt MD LAB - URINE CHEMISTRY ORDERABLE S Final Result Performing Organization Address [facility]/ZIP Co de Phone Number [facility] [address] [place] [address] * GTT 1 HR (50G) GESTATIONAL SCREEN (11/19/2024 9:12 AM CDT) Glucose Gestational Screen 96 <140 mg/dL [facility] Comment: REPORT COMMENT: FASTING:YES Test Performed at: [facility] [address] [place] [address] KENJI ZURITA MD Blood BLOOD SPECIMEN / Unknown 11/19/2024 9:12 AM CDT 11/19/2024 9:17 AM CDT Rufino Platt MD LAB - CHEMISTRY ORDERABLES Frances l Result Performing Organization Address [facility] Co de Phone Number [facility] [address] [place] [address] * PAP 2 OR MORE SLIDES (12/03/2023 12:00 AM CDT) Historical Provider LAB - PATHOLOGY/CYTOLOGY ORDERABLES Final Result Performing Organization Address [facility] Co de Phone Number [facility] PATHOLOGY LAB [facility]. [address] [phone] from Last 3 Months or Most Recently Relevant to Health Maintenance [place] [address] [address] [employer] Care Teams Commercial Sales Director Relationship Specialty Start Date End Date Albert Ruby MD [address] [address] PCP - General Family Medicine 11/08/24
--- OUTSIDE RECORDS SUMMARY | 2025-01-01 16:54 | XMS_ITS | Encounter Summary ---
Author Organization [facility] Address [address] [place] [address] Care Team Providers Care Thermostat Repairer Name Role Phone Albert Ruby MD Primary Care Provider [phone] Tremayne Shi MD Unavailable [phone] Encounter Details Date Type Department Care Team (Late st Contact Info) Description 04/21/2020 Mobifusiont Message Enc [facility] Medical [facility] Family and Sports Medicine - [place] [address] [place] [address] Albert Ruby MD [address] [address] RE: Question Social History Tobacco Use Types [...] Sex Assigned at Female 10/02/2024 10:48 AM HEALTH EDUCATOR Legal Sex Female 4:55 PM CDT Gender [...] Rule Out 10/02/2024 10/02/2024 10/02/2024 10:45 AM HEALTH EDUCATOR Assessment Noted Time PHQ-9 Depression Total Score: 9 08/05/20 19 9:19 AM HEALTH EDUCATOR documented as of this encounter Care Teams Thermostat Repairer Relationship Specialty Start Date End Date Albert Ruby MD [address] [place] [address] PCP - General FAMILY PRACTICE 05/16/18 Tremayne Shi MD [address] [place] [address] EP Process Cheese Cooker CARDIOVASCULAR DISEASE 08/15/18 documented as of this encounter
--- OUTSIDE RECORDS SUMMARY | 2025-01-01 16:54 | XMS_ITS | Encounter Summary ---
Author Organization [facility] Address [address] [place] [address] Care Team Providers Care Electric Range Servicer Name Role Phone Albert Ruby MD Primary Care Provider [phone] Tremayne Shi MD Unavailable [phone] Encounter Details Date Type Department Care Team (Late st Contact Info) Description 05/23/2023 Missionly Message Enc [facility] Family and Sports Medicine - [place] [address] [place] [address] Tana Dennison, SAUSAGE MEAT TRIMMER [address] [place] [address] Blood pressures Social History Tobacco Use Types [...] Sex Assigned at Female 10/02/2024 10:48 AM RN TRANSPORT Legal Sex Female 4:55 PM CDT Gender [...] Rule Out 10/02/2024 10/02/2024 10/02/2024 10:45 AM RN TRANSPORT Assessment Noted Time PHQ-9 Depression Total Score: 11 022 11:44 AM CDT documented as of this encounter Care Teams Electric Range Servicer Relationship Specialty Start Date End Date Albert Ruby MD [address] [place] [address] [address] [place], [place] [address] PCP - General FAMILY PRACTICE 05/16/18 [facility]remayne Shi MD [facility] [address] [place], [place] [id number] EP Business Office Representative CARDIOVASCULAR DISEASE 08/15/18 documented as of this encounter
--- OUTSIDE RECORDS SUMMARY | 2025-01-01 16:54 | XMS_ITS | Encounter Summary ---
Author Organization [facility] Address [address] [place] [address] Care Team Providers Care Practicing Md Anesthesiologist Name Role Phone Magda Gregorio DO Primary Care Provider [phone] Reason for Visit * Reason Comments Insurance Coverage Encounter Details Date Type Department Care Team (Late st Contact Info) Description 03/18/2024 Chart Note [facility] Bariatrics and General Surgery at the [facility] [address] [place] [address] Sissy Mccord MD [address] [place] [address] Insurance Coverage Social History Tobacco Use Types Packs/Day Years Used Date Smoking Tobacco: Never Smokeless Tobacco: Never Alcohol Use Standard Drinks/Week Comments No 0 (1 standard drink = 0.6 oz pur e alcohol) Comments No Sex and Gender Information Value Date Recorded Sex Assigned at Not on file Legal Sex Female 5:41 AM COMMUNICATIONS ELECTRICIAN SUPERVISOR Gender Identity Not on file Sexual Orientation Not on file documented as of this encounter Plan of Treatment Not on file documented as of this encounter Visit Diagnoses Not on filedocumented in this encounter Care Teams Practicing Md Anesthesiologist Relationship Specialty [place] [address] [place] [address] PCP - General Internal Medicine 10/14/22 documented as of this encounter
--- OUTSIDE RECORDS SUMMARY | 2025-01-01 16:54 | XMS_ITS | Clinical Summary ---
Author Organization [facility] Address [address] [place] [address] Care Team Providers Care Marketing Designer Name Role Phone Albert Ruby MD Primary Care Provider [phone] Tremayne Shi MD Unavailable [phone] Allergies Active Allergy Reactions Criticality Noted Date Comments Apple Vomiting 01/05/2010 Medications esomeprazole (NEXIUM) 40 MG capsule Take 1 capsule (40 mg total) by mouth every morning before breakfast. Active folic acid (FOLVITE) 1 MG tabletIndication s:Low folic acid Take 1 tablet (1 mg total) by mouth daily. 90 tablet 3 4 Active metoprolol succinate ER (TOPROL-XL) 100 MG 24 hr tabletIndication s:Palpitations,P rimary hypertension Take 1 tablet by mouth once daily 90 tablet 5 Active Additional Information Patient taking differently: 200 mgOral Daily, Reported on 12/02/2024 sertraline (ZOLOFT) 50 MG tabletIndication s:Anxiety Take 1 tablet by mouth once daily 90 tablet 5 Active vitamin D2, ergocalciferol, (DRISDOL) 1.25 mg capsuleIndicatio ns:Vitamin D deficiency Take 1 capsule (1.25 mg total) by mouth every 7 days. 12 capsule 5 Active vitamin D2, ergocalciferol, (DRISDOL) 1.25 mg capsuleIndicatio ns:Vitamin D deficiency TAKE 1 CAPSULE BY MOUTH ONCE EVERY 7 DAYS 12 capsule 5 Active Active Problems Problem Noted Date Diagnosed [...] Estimated Date of Delivery Comme nts Yes 05/08/2025 Resolved Problems Problem Noted Date Diagnosed Date Resolved Date Annual physical exam 11/13/2020 021 Encounters Date Type Department Care Team Description 12/02/2024 6:29 PM CDT - 12/02/2024 7:30 PM CDT Emergency [facility] [address] [place] [address] [place] [address] Brent Brannon MD Complications Discharge Disposition: Home or Self Care (Routine Discharge) 12/02/2024 Travel 11/13/2024 MyChart Message Enc [facility] - [place] [address] [facility] [place] [address] Albert Ruby MD Lab request 10/26/2024 MyChart Message Enc [facility] [place] [address] [facility] [place] [address] Albert Ruby MD STI 10/22/2024 8:00 AM CONTRACT CLERK Office Visit [facility] [place] [address] [facility] [place] [address] Albert Ruby MD Physical (Annual Physical Exam/) 10/22/2024 Travel from Last 3 Months Immunizations Immunization Administration Dates Next Due Dtap 03/26/2001, 0,01/18/2000,11/10 Dtap (Acel-Immune) 04/18/2005 Dtap (Generic) 04/18/2005, 1,03/17/2000,05/2000,1999 Fluzone Intradermal Quad (IIV4) 04/10/2023 HPV 05/01/2013,08/22/2011 [...] Date Recorded Patient Health Questionnaire-2 Score 0 10/22/2024 Estimated Date of Delivery Comme nts Yes 05/08/2025 Sex and Gender Information Value Date Recorded Sex Assigned at Female 10/02/2024 10:48 AM CONTRACT CLERK Legal Sex Female 4:55 PM CDT Gender Identity Not on file Sexual Orientation Not on file Occupation Industry Job Start Date Job End Date Not on file Not on file Not on file Not on file Last Filed Vital Signs Vital Sign Reading Time Taken Comments Blood Pressure 123/66 12/02/2024 6:56 PM CDT Pulse 73 12/02/2024 6:42 PM CDT Temperature 36.4 C (97.6 F) 12/02/2024 6:42 PM CDT Respiratory Rate 12 12/02/2024 6:42 PM CDT Oxygen Saturation 100% 12/02/2024 6:42 PM CDT Inhaled Oxygen Concentration - - Weight 134 kg (295 lb 6.4 oz) 12/02/2024 6:42 PM CDT Height 162.6 cm (5' 4 ) 12/02/2024 6:42 PM CDT Body Mass Index 50.71 12/02/2024 6:42 PM CDT Plan of Treatment Health Maintenance Due Date Last Done Comments Kidney Health Evaluation 1999 Diabetes: Retinopathy Eye Exam 2017 Pneumococcal Vaccine: Pediatrics (0 to 5 Years) and At-Risk Patients (6 to 49 Years) (1 of 2 - PCV) 2018 03/26/2001, 07/03/2000, 01/18/2000 DTaP, Tdap and Td Vaccines (7 - Td or Tdap) 05/01/2023 05/01/2013, 04/18/2005, 04/18/2005, Additional history exists Hemoglobin A1C 10/26/2024 04/25/2024, 06/11, 11/13/2020, Additional history exists Lipid Panel 04/25/2025 04/25/2024, 06/11, 11/13/2020, Additional history exists Annual Physical 10/22/2025 10/22/2024, 06/12, 07/01/2022, Additional history exists Cervical Cancer Screening Pap Smear (Age 21 to 29) Every 3 Years 12/02/2026 12/03/2023, 09/08/2022, 09/08/2022, Additional history exists Cervical Cancer Screening 12/02/2026 COVID-19 Vaccine ( season) 2112 05/13/2021, 02/23/2021 Postponed from 05/12/2024 (Going to Outside Clinic) Hepatitis B Vaccines Completed 03/26/2001, 03/26/2001, 12/22/2000, Additional history exists HPV Vaccines Completed 05/01/2013, 04/12, 08/22/2011, Additional history exists Meningococcal B Vaccine Completed 08/02/2017, 04/19 Meningococcal Vaccine Completed 08/02/2017 , 04/19/2017, 04/19/2017, Additional history exists Hepatitis C Completed 04/25/2024 PHQ-2 (Physician [place]) Completed 10/22/2024 RSV Immunization or 60+ Years (No Doses Required) Completed RSV Immunizations Under 20 Months Aged Out No longer eligible based on patient's age to complete this topic Procedures Procedure Name Priority Date/Time Associated Diagnosis Comments HC URINALYSIS AUTO W/MICRO STAT 12/02/2024 6:53 PM CDT CHLAMYDIA GC RNA Routine 11/19/2024 10:1 6 AM CDT Chlamydia HEPATITIS C ANTIBODY W/RFX TO HCV RNA Routine 04/25/2024 1:09 PM CDT LIPID PANEL Routine 04/25/2024 1:09 PM CDT HEMOGLOBIN, GLYCOSYLATED Routine 04/25/2024 1:09 PM CDT from Last 3 Months or Most Recently Relevant to Health Maintenance Results * (ABNORMAL) URINALYSIS (12/02/2024 6:53 PM CDT) COLOR (U) YELLOW 12/02/2024 7:19 PM CDT [facility] TRANSPARENCY CLEAR 12/02/2024 7:19 PM CDT [facility] SPECIFIC GRAVITY (U) 1.030(H) 1.000 - 1.025 12/02/2024 7:19 PM CDT [facility] Comment:EQUAL TO OR GREATER THAN U PH 6.0 5.0 - 8.0 12/02/2024 7:19 PM CDT [facility] LEUKOCYTES (U) NEGATIVE NEGATIVE 12/02/2024 7:19 PM CDT [facility] NITRITES NEGATIVE NEGATIVE 12/02/2024 7:19 PM CDT [facility] PROTEIN RANDOM (U) TRACE(A) NEGATIVE 12/02/2024 7:19 PM CDT [facility] GLUCOSE (U) NEGATIVE NEGATIVE 12/02/2024 7:19 PM CDT [facility] KETONES MG/DL (U) NEGATIVE NEGATIVE 12/02/2024 7:19 PM CDT [facility] UROBILINOGEN 0.2 <1.0 EU/DL 12/02/2024 7:19 PM CDT [facility] BILIRUBIN (U) NEGATIVE NEGATIVE 12/02/2024 7:19 PM CDT [facility] BLOOD (U) NEGATIVE NEGATIVE 12/02/2024 7:19 PM CDT [facility] WBC/HPF NONE SEEN(A) 0 - 5 /HPF 12/02/2024 7:19 PM CDT [facility] RBC/HPF NONE SEEN(A) 0 - 5 /HPF 12/02/2024 7:19 PM CDT [facility] EPI/LPF MODERATE /LPF 12/02/2024 7:19 PM CDT [facility] BACTERIA (U) TRACE /HPF 12/02/2024 7:19 PM CDT [facility] MUCUS 2+ 12/02/2024 7:19 PM CDT [facility] URINE SPECIMEN OBTAINED BY CLEAN CATCH PROCEDURE / Unknown 12/02/2024 6:53 PM CDT Brent Brannon MD URINE ORDERABLES Final Result [facility] [address] [place] [address], * CHLAMYDIA GC RNA (11/19/2024 10:16 AM CDT) CHLAMYDIA TRACHOMATIS RNA TMA NOT DETECTED NOT DETECTED [facility] N.GONORRHOEAE RNA TMA (QST) NOT DETECTED NOT DETECTED [facility] COMMENT: [facility] Comment: The analytical performance characteristics of this assay, when used to test SurePath(TM) specimens have been determined by [employer] [facility]. The modifications have not been cleared or approved by the FDA. This assay has been validated pursuant to the CLIA regulations and is used for clinical purposes. For additional information, please refer to https://education.BioBeats/faq/NPY524 (This link is being provided for information/ educational purposes only.) URINE SPECIMEN / Unknown 11/19/2024 10:16 AM CDT 11/19/2024 10:17 AM CDT Narrative Resulting Agency Comment Performing Organization Information: Site ID: [place] Name: [facility] Address: [address] [address] Director: Yuli Li MD Albert Ruby MD MICROBIOLOGY - GENERAL ORDERAB LES Final Result [facility] - [place] [facility] [address] [place] [address], * HEPATITIS C ANTIBODY W/RFX TO HCV RNA (04/25/2024 1:09 PM CDT) Pathologist [facility] HEPATITIS C AB NON-REACT CARRI NON-REACT CARRI [facility] Comment: HCV antibody was non-reactive. There is no laboratory evidence of HCV infection. In most cases, no further action is required. However, if recent HCV exposure is suspected, a test for HCV RNA (test code 26187) is suggested. For additional information please refer to http://education.BioBeats/faq/KGN79x8 (This link is being provided for informational/ educational purposes only.) 04/25/2024 1:09 PM CDT 04/25/2024 1:14 PM CDT Narrative [facility] [place] - 04/26/2024 11:32 AM CDT FASTING:YES FASTING: YES Resulting Agency Comment Performing Organization Information: Site ID: [place] Name: [facility] Address: [address] [place] [address] Director: Yuli Li MD us Albert Ruby MD LABORATORY Final Result [facility] [place] [facility] [address] [place], [place] [address] * (ABNORMAL) HEMOGLOBIN, GLYCOSYLATED (04/25/2024 1:09 PM CDT) [facility] HGB A1C 5.7(H) <5.7 % of total Hgb [facility] [place] Comment: For someone without known diabetes, [...] A1c for diagnosis of diabetes for children. This test was performed on the [employer] kulwinder c503 platform. Effective 11/27/23, a change in test platforms from the [facility] to the [employer] kulwinder c503 may have shifted HbA1c results compared to historical results. Based on laboratory validation testing conducted at [facility], the [employer]ka platform relative to the [facility]elles [...] CDT 04/25/2024 1:14 PM CDT Narrative [facility] [place] - 04/26/2024 11:32 AM CDT FASTING:YES FASTING: YES Resulting Agency Comment Performing Organization Information: Site ID: [place] Name: [facility] Address: [address] [place] [id number] Director: Yuli Li Albert Ruby MD LABORATORY Final Result [facility] [place] [address] [address], * (ABNORMAL) LIPID PANEL (04/25/2024 1:09 PM CDT) CHOLESTEROL 104 <200 mg/dL [facility] HDL 43(L) > OR = 50 mg/dL [facility] TRIGLYCERIDES 67 <150 mg/dL [facility] LDL (CALCULATED) 47 mg/dL (calc) [facility] Comment: Reference range: <100 Desirable range <100 mg/dL for primary prevention; <70 mg/dL for patients with CHD or diabetic patients with > or = 2 CHD risk factors. LDL-C is now calculated using the Kevin-Justice calculation, which is a validated novel method providing better accuracy than the Friedewald equation in the estimation of LDL-C. Kevin SS et al. AMAN. 2013;310(19): 7084-1147 (http://education.Carvoyant.[employer]/faq/FMI797) CHOL/HDL RATIO 2.4 <5.0 (calc) [facility] NON HDL CHOLESTEROL 61 <130 mg/dL (calc) [facility] Comment: For patients with diabetes plus 1 major ASCVD risk factor, treating to a non-HDL-C goal of <100 mg/dL (LDL-C of <70 mg/dL) is considered a therapeutic option. 04/25/2024 1:09 PM CDT 04/25/2024 1:14 PM CDT Narrative [facility] [place] - 04/26/2024 11:32 AM CDT FASTING:YES FASTING: YES Resulting Agency Comment Performing Organization Information: Site ID: [id number] Name: [facility] Address: [address] [facility] [place] [address] Director: Yuli Li MD us Albert Ruby MD LABORATORY Final Result [facility] [place] [facility] [id number] [place] [address] [place] [address], from Last 3 Months or Most Recently Relevant to Health Maintenance Insurance [facility] C[employer] [address] [place] [id number] Care Teams Marketing Designer Relationship Specialty Start Date End Date Albert Ruby MD [address] [place] [address] [address] [place] [address] PCP - General FAMILY PRACTICE 05/16/18 [facility]remayne Shi [facility] [address] [place] [address] EP Marine Animal Trainer CARDIOVASCULAR DISEASE 08/15/18
== END 2025-01-01 15:23 | disposition home or self-care (01) ==
PROVIDERS: Emergency Provider Nurse Practitioner Family; PCP Family Medicine Sports Medicine
DX: J06.9 Acute upper respiratory infection, unspecified (principal)
CPT/HCPCS: 87081; 87880; 99213; G0463

== ENCOUNTER 2025-06-08 19:56 | Emergency (ER) | payer BC, SELFPAY ==
[2025-06-08 19:56] VITALS: BP 125/75; PULSE 64; RESP 20; TEMP 36.2; O2SAT 97
--- OUTSIDE RECORDS SUMMARY | 2025-06-08 19:58 | XMS_ITS | Encounter Summary ---
Author Organization [facility] Address [address] [place] [address] Care Team Providers Care Core Blower Name Role Phone Albert Ruby MD Primary Care Provider [phone] Reason for Visit * Reason Onset Date Comments MEDICATION REFILL 11/19/2024 Encounter Details Date Type Department Care Team (Late st Contact Info) Description 11/19/2024 Refill [facility] - PUBLIC INFORMATION RELATIONS MANAGER [address] [facility] [address] [place] [address] Rufino Platt MD [address] [facility] [address] [address] [place], [place] [id number] MEDICATION REFILL Social History Tobacco Use Types Packs/Day Years Used Date Smoking Tobacco: Never Alcohol Use Standard Drinks/Week Comments No 0 (1 standard drink = 0.6 oz pur e alcohol) Education Answer Date Recorded What is the highest level of school you have completed or the highest degree you have received? 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 Not on file Not on file Not on file documented as of this encounter Miscellaneous Notes * Telephone Encounter - Michelle Sin RN - 11/26/2024 8:03 AM CDT Rescheduling appt 12/06 documented in this encounter Plan of Treatment Upcoming Encounters Date Type Department Care Team (Late st Contact Info) Description 06/09/2025 9:20 AM CDT Clinical Support [facility] - PUBLIC INFORMATION RELATIONS MANAGER [address] [place] [address] 06/09/2025 9:30 AM CDT Procedure visit [facility] - PUBLIC INFORMATION RELATIONS MANAGER [address] [place] [address] Mandy Krishnan SOFTWARE QUALITY ASSURANCE SPECIALIST-SUPERVISOR [employer] [address] [place] [address] 06/10/2025 1:40 PM CDT Procedure visit [facility] - PUBLIC INFORMATION RELATIONS MANAGER [address] [place] [address] Leila Burt, SOFTWARE QUALITY ASSURANCE SPECIALIST-SUPERVISOR [employer] [address] [place] [address] documented as of this encounter Visit Diagnoses Not on filedocumented in this encounter Care Teams Core Blower Relationship Specialty Start Date End Date Albert Ruby MD [address] [place] [address] PCP - General Family Medicine 11/08/24 documented as of this encounter
--- OUTSIDE RECORDS SUMMARY | 2025-06-08 19:58 | XMS_ITS | Encounter Summary ---
Author Organization [facility] Address [address] [facility] [place] [address] Care Team Providers Care Machine Spreader Name Role Phone Albert Ruby MD Primary Care Provider [phone] Reason for Visit * Reason Onset Date Comments Follow-up 04/17/2025 Encounter Details Date Type Department Care Team (Late st Contact Info) Description 04/17/2025 Telephone [facility] - COMMANDING OFFICER [facility]ARAGE [address] [facility] [address] [place] [address] Ольга Breen APRN-[facility] [address] [place] [address] Follow-up Social History Tobacco Use Types Packs/Day Years Used Date Smoking Tobacco: Never Alcohol Use Standard Drinks/Week Comments No 0 (1 standard drink = 0.6 oz pur e alcohol) Overall Financial Resource Strain (CARDIA) Answe r Date Recorded How hard is it for you to pa y for the very basics like food, housing, medical care, and heating? Not hard at all 04/21/2025 PHQ-2 Answer Date Recorded Patient Health Questionnaire-2 Score 0 04/14/2025 [facility] [place] of Occupat ional Health - Occupational Stress Questionnaire Answer Date Recorded Do you feel stress - tense, restless, nervous, or anxious, or unable to sleep at night because your mind is troubled all the time - these days? Not at all 04/21/2025 Hunger Vital Sign Answer Date Recorded Within the past 12 months, y ou worried that your food would run out before you got the money to buy more. Never true 04/21/20 25 Within the past 12 months, t he food you bought just didn't last and you didn't have money to get more. Never true 04/21/2025 PRAPARE - Transportation Answer Date Re corded In the past 12 months, has l ack of transportation kept you from medical appointments or from getting medications? No 04/11 In the past 12 months, has l ack of transportation kept you from meetings, work, or from getting things needed for daily living? No 04/21/2025 [place] Depression Scale Answer Date Recorded [place] Depression Scale Total 4 04/07/2025 The thought of harming myself has occurred to me . Never 04/07/2025 Housing Stability Vital Sign Answer Steven e Recorded In the last 12 months, was t here a time when you were not able to pay the mortgage or rent on time? No 04/21/2025 In the past 12 months, how m any times have you moved where you were living? 0 04/21/2025 At any time in the past 12 m [facility], were you homeless or living in a jail (including now)? No 04/21/2025 Education Answer Date Recorded What is the highest level of school you have completed or the highest degree you have received? 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 Answer Date of Assessment Author No 04/15/2025 5:08 PM CDT Mehdi Lombardo RN * Is person blind or have serious difficulty seeing? Answer Date of Assessment Author No 04/15/2025 5:08 PM CDT Mehdi Lombardo RN * Does person have serious difficulty walking/climbing stairs? Answer Date of Assessment Author No 04/15/2025 5:08 PM CDT Mehdi Lombardo RN * Does person have difficulty dressing/bathing? Answer Date of Assessment Author No 04/15/2025 5:08 PM CDT Mehdi Lombardo RN * Does person have difficulty doing errands alone? Answer Date of Assessment Author No 04/15/2025 5:08 PM GINNYT Mehdi Lobmardo RN documented as of this encounter Mental Status * Does person have difficulty concentrating/remembering/making decisions? Answer Entry Date Author No 04/15/2025 5:08 PM CDT Mehdi Lombardo RN documented in this encounter Plan of Treatment Upcoming Encounters Date Type Department Care Team (Late st Contact Info) Description 06/09/2025 9:20 AM CDT Clinical Support [facility] - COMMANDING OFFICER GARAGE [address] [place] [address] 06/09/2025 9:30 AM CDT Procedure visit [facility] - COMMANDING OFFICER GARAGE [address] [place] [address] Mandy Krishnan, COAL SAMPLE TESTER-MATRIX DRIER TENDER [address] [place] [address] 06/10/2025 1:40 PM CDT Procedure visit [facility] - COMMANDING OFFICER GARAGE [address] [place] [address] Leila Burt, COAL SAMPLE TESTER-MATRIX DRIER TENDER [address] [place] [address] documented as of this encounter Visit Diagnoses Not on filedocumented in this encounter Care Teams Machine Spreader Relationship Specialty Start Date End Date Albert Ruby MD [address] [address] PCP - General Family Medicine 11/08/24 documented as of this encounter
--- OUTSIDE RECORDS SUMMARY | 2025-06-08 19:58 | XMS_ITS | Encounter Summary ---
Author Organization [facility] Address [address] [facility] [place] [address] Care Team Providers Care Heating And Air Conditioning Mechanic Name Role Phone Albert Ruby MD Primary Care Provider [phone] Reason for Visit * Reason Onset Date Comments Appointment 03/04/2025 Encounter Details Date Type Department Care Team (Late st Contact Info) Description 03/04/2025 Telephone [facility] - ADMISSIONS GATE ATTENDANT [address] [facility] [address] [place] [address] Ольга Breen APRN-GEOPHYSICAL COMPUTER [address] [place] [address] Appointment Social History Tobacco Use Types Packs/Day Years Used Date Smoking Tobacco: Never Alcohol Use Standard Drinks/Week Comments No 0 (1 standard drink = 0.6 oz pur e alcohol) PHQ-2 Answer Date Recorded Patient Health Questionnaire-2 Score 0 02/25/2025 [place] Depression Scale Answer Date Recorded [place] Depression Scale Total 4 03/04/2025 The thought of harming myself has occurred to me . Never 03/04/2025 Education Answer Date Recorded What is the highest level of school you have completed or the highest degree you have received? 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 CB: [phone] documented in this encounter Plan of Treatment Upcoming Encounters Date Type Department Care Team (Late st Contact Info) Description 06/09/2025 9:20 AM CDT Clinical Support [facility] - ADMISSIONS GATE ATTENDANT [address] [place] [address] 06/09/2025 9:30 AM CDT Procedure visit [facility] - ADMISSIONS GATE ATTENDANT [address] [place] [address] Mandy Krishnan, UNIT AIDE TECH-GEOPHYSICAL COMPUTER [address] [place] [address] 06/10/2025 1:40 PM CDT Procedure visit [facility] - ADMISSIONS GATE ATTENDANT [address] [place] [address] Leila Burt, UNIT AIDE TECH-GEOPHYSICAL COMPUTER [address] [place] [address] documented as of this encounter Visit Diagnoses Not on filedocumented in this encounter Care Teams Heating And Air Conditioning Mechanic Relationship Specialty Start Date End Date Albert Ruby MD [address] [place] [address] PCP - General Family Medicine 11/08/24 documented as of this encounter
--- OUTSIDE RECORDS SUMMARY | 2025-06-08 19:58 | XMS_ITS | Encounter Summary ---
Author Organization [facility] Health Address [address] [place] [address] Care Team Providers Care Twine Winder Name Role Phone Albert Ruby MD Primary Care Provider [phone] Reason for Visit * Reason Onset Date Comments Care 05/16/2025 Encounter Details Date Type Department Care Team (Late st Contact Info) Description 05/16/2025 Telephone [facility] - [facility] Scheduling [address] [place] [address] Ольга Breen APRN-HUMAN RESOURCES INTERN [address] [place] [address] Care Social History Tobacco Use Types Packs/Day Years Used Date Smoking Tobacco: Never Alcohol Use Standard Drinks/Week Comments No 0 (1 standard drink = 0.6 oz pur e alcohol) Overall Financial Resource Strain (CARDIA) Answe r Date Recorded How hard is it for you to pa y for the very basics like food, housing, medical care, and heating? Not hard at all 04/24/2025 PHQ-2 Answer Date Recorded Patient Health Questionnaire-2 Score 0 04/14/2025 [facility] of Occupat ional Health - Occupational Stress Questionnaire Answer Date Recorded Do you feel stress - tense, restless, nervous, or anxious, or unable to sleep at night because your mind is troubled all the time - these days? Not at all 04/24/2025 Hunger Vital Sign Answer Date Recorded Within the past 12 months, y ou worried that your food would run out before you got the money to buy more. Never true 04/24/20 25 Within the past 12 months, t he food you bought just didn't last and you didn't have money to get more. Never true 04/24/2025 PRAPARE - Transportation Answer Date Re corded In the past 12 months, has l ack of transportation kept you from medical appointments or from getting medications? No 04/11 In the past 12 months, has l ack of transportation kept you from meetings, work, or from getting things needed for daily living? No 04/24/2025 [place] Depression Scale Answer Date Recorded [place] Depression Scale Total 1 05/05/2025 The thought of harming myself has occurred to me . Never 05/05/2025 Housing Stability Vital Sign Answer Steven e Recorded In the last 12 months, was t here a time when you were not able to pay the mortgage or rent on time? No 04/24/2025 In the past 12 months, how m any times have you moved where you were living? 1 04/24/2025 At any time in the past 12 m ont, were you homeless or living in a skilled nursing (including now)? No 04/24/2025 Education Answer Date Recorded What is the highest level of school you have completed or the highest degree you have received? 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 Answer Date of Assessment Author No 04/24/2025 8:32 PM CDT Glenys Mercado RN * Is person blind or have serious difficulty seeing? Answer Date of Assessment Author No 04/24/2025 8:32 PM CDT Glenys Mercado RN * Does person have serious difficulty walking/climbing stairs? Answer Date of Assessment Author No 04/24/2025 8:32 PM CDT Glenys Mercado RN * Does person have difficulty dressing/bathing? Answer Date of Assessment Author No 04/24/2025 8:32 PM CDT Glenys Mercado RN * Does person have difficulty doing errands alone? Answer Date of Assessment Author No 04/24/2025 8:32 PM CDT Glenys Mercado RN documented as of this encounter Mental Status * Does person have difficulty concentrating/remembering/making decisions? Answer Entry Date Author No 04/24/2025 8:32 PM GINNYT Glenys Mercado RN documented in this encounter Miscellaneous Notes * Telephone Encounter - Jammie Ruano - 05/16/2025 2:19 PM CDT Appointment Request From: Laura Finley With Provider: SALONI GUIDO [[facility]] Preferred Date Range: Any Preferred Times: Any Reason for visit: Visit Health Maintenance Topic: Comments: I have a knot on top of incision, it is about the size of a golfball. documented in this encounter Plan of Treatment Upcoming Encounters Date Type Department Care Team (Late st Contact Info) Description 06/09/2025 9:20 AM CDT Clinical Support [facility] [address] [place] [address] 06/09/2025 9:30 AM CDT Procedure visit [facility] [address] [place] [address] Mandy Krishnan APRN-CNP [address] [place] [address] 06/10/2025 1:40 PM CDT Procedure visit [facility] [address] [place] [address] Leila Burt, FURNITURE SALESPERSON-HUMAN RESOURCES INTERN [address] [facility] [address] [place] [address] documented as of this encounter Visit Diagnoses Not on filedocumented in this encounter Care Teams Twine Winder Relationship Specialty Start Date End Date Albert Ruby MD [address] [address] PCP - General Family Medicine 11/08/24 documented as of this encounter
--- OUTSIDE RECORDS SUMMARY | 2025-06-08 19:58 | XMS_ITS | Clinical Summary ---
Author Organization [facility] Address [address] [place] [address] Care Team Providers Care School Photograph Editor Name Role Phone Magda Gregorio DO Primary Care Provider [phone] Allergies Active Allergy Reactions Criticality Noted Date [...] Encounters Date Type Department Care Team Description 05/27/2025 External Device Data STL ABSTRACTION Provider, Abstract 03/26/2025 External Device Data STL ABSTRACTION Provider, Abstract 03/26/2025 External Device Data ST[facility] ABSTRACTION Provider, Abstract from Last 3 Months Immunizations Immunization Administration [...] COVID-19 VACCINE - EMERGENCY USE AUTHORIZATION, MRNA, [id number](PF) 30 MCG/0.3 ML IM SUSP 05/13/2021,02/23/2021 (PROQUAD)(12 [...] on file Legal Sex Female 5:41 AM JUNIOR ACCOUNTING CLERK Gender Identity Not on file Sexual Orientation Not on file Last Filed Vital Signs Vital Sign Reading Time Taken Comments Blood Pressure 118/74 10/14/2022 10:43 AM JUNIOR ACCOUNTING CLERK Pulse 75 10/14/2022 10:43 AM JUNIOR ACCOUNTING CLERK Temperature 36.9 C (98.4 F) 10/14/2022 10:43 AM JUNIOR ACCOUNTING CLERK Respiratory Rate 20 01/21/2011 9:13 AM CDT Oxygen Saturation 99% 10/14/2022 10:43 AM JUNIOR ACCOUNTING CLERK Inhaled Oxygen Concentration - - Weight 125.2 kg (276 lb) 10/14/2022 10:43 AM JUNIOR ACCOUNTING CLERK Height 167.6 cm (5' 6) 10/14/2022 10:43 AM JUNIOR ACCOUNTING CLERK Body Mass Index 44.55 10/14/2022 10:43 AM JUNIOR ACCOUNTING CLERK Plan of Treatment Health Maintenance Due Date Last Done Comments HPV/Cotest (-) 2020 DTAP/TDAP/TD VACCINES (3 - T d or Tdap) 05/01/2023 05/01/2013, 04/18/2005, 04/18/2005, Additional history exists INFLUENZA VACCINE (#1) 2025 , 06/05/2020, 07/25/2011, Additional history exists COVID-19 Vaccine (2024-2 6 season) 2025 05/13/2021, 02/23/2021 CERVICAL CANCER SCREENING 12/02/2026 PAP SMEAR 12/02/2026 12/03/2023, 09/08/2022 HEPATITIS B VACCINES Completed 03/26/2001, 03/26/2001, 12/22/2000, Additional history exists HPV VACCINES Completed 05/01/2013, 04/12, 08/22/2011, Additional history exists Preventative Visit- Commercial Completed 0 10/22/2024, 07/07/2023, 10/14/2022, Additional history exists RSV VACCINE (60+ or ) (No Doses Required) Completed [facility] BL[facility] ACCESS Advance Directives For more information, please contact: [phone] * Full Code (Latest Code Status on File) Date Activated Date Inactivated Comments 01/21/2011 8:00 AM 01/21/2011 11:52 AM Care Teams School Photograph Editor Relationship Specialty [place] [address] [place] [address] PCP - General Internal Medicine 10/14/22
--- OUTSIDE RECORDS SUMMARY | 2025-06-08 19:58 | XMS_ITS | Encounter Summary ---
Author Organization [facility] Address Formerly [facility], [facility] [place] [address] Care Team Providers Care Corporate Claims Examiner Name Role Phone Albert Ruby MD Primary Care Provider [phone] Tremayne Shi MD Unavailable [phone] Encounter Details Date Type Department Care Team (Late st Contact Info) Description 04/21/2020 MyCTruQut Message Enc [facility] Medical Group Family and Sports Medicine - [place] [address] [place] [address] Albert Ruby MD [address] [facility] [address] [place] [address] RE: Question Social History Tobacco Use Types [...] Sex Assigned at Female 10/02/2024 10:48 AM GREENSKEEPER LABORER Legal Sex Female 4:55 PM CDT Gender [...] as of this encounter Plan of Treatment Upcoming Encounters Date Type Department Care Team (Late st Contact Info) Description 07/28/2025 10:00 AM GREENSKEEPER LABORER Office Visit [facility] Medical Group Family and Sports Medicine - [place] [address] [place] [address] Albert Ruby MD [address] [place] [address] documented as of this encounter Visit Diagnoses Not on filedocumented in this encounter Additional Health Concerns Infection Onset Date Last Indicated Resolved Time COVID-19 Rule Out 10/02/2024 10/02/2024 10/02/2024 10:45 AM GREENSKEEPER LABORER Assessment Noted Time PHQ-9 Depression Total Score: 9 08/05/20 19 9:19 AM GREENSKEEPER LABORER documented as of this encounter Care Teams Corporate Claims Examiner Relationship Specialty Start Date End Date Albert Ruby MD [address] [facility] [address] [place] [address] PCP - General FAMILY PRACTICE 05/16/18 Tremayne Shi MD [facility] [address] [place] [address] EP Molding Machine Operator CARDIOVASCULAR DISEASE 08/15/18 documented as of this encounter
--- OUTSIDE RECORDS SUMMARY | 2025-06-08 19:58 | XMS_ITS | Clinical Summary ---
Author Organization [facility] Address [address] [place] [address] Care Team Providers Care Locomotive Supervisor Name Role Phone Albert Ruby MD Primary Care Provider [phone] Tremayne Shi MD Unavailable [phone] Allergies Active Allergy Reactions Criticality Noted Date Comments Apple Vomiting 01/05/2010 Medications metoprolol succinate ER (TOPROL-XL) 100 MG 24 hr tabletIndication s:Palpitations,P rimary hypertension Take 1 tablet by mouth once daily 90 tablet 09/15/19 25 Active Additional Information Patient taking differently: 200 mgOral Daily, Reported on 05/26/2025 silver sulfADIAZINE (SILVADENE) 1 % cream Apply topically daily for 5 days. 1 g 06/04/20 25 025 Active Acetaminophen 500 MG Cap Take 1,000 mg by mouth every 6 (six) hours as needed. 04/29/20 25 Active ibuprofen (MOTRIN) 600 MG tablet Take 1 tablet (600 mg total) by mouth every 6 (six) hours as needed. Active metoprolol succinate ER (TOPROL-XL) 200 MG 24 hr tablet Take 1 tablet (200 mg total) by mouth daily. Active sertraline (ZOLOFT) 50 MG tablet Take 1 tablet (50 mg total) by mouth daily. Active esomeprazole (NEXIUM) 40 MG capsule Take 1 capsule (40 mg total) by mouth every morning before breakfast. 025 Discontinu ed(Other- Please enter comment in Notes field) folic acid (FOLVITE) 1 MG tabletIndication s:Low folic acid Take 1 tablet (1 mg total) by mouth daily. 90 tablet 3 05/01/20 24 025 Discontinu ed(Other- Please enter comment in Notes field) vitamin D2, ergocalciferol, (DRISDOL) 1.25 mg capsuleIndicatio ns:Vitamin D deficiency Take 1 capsule (1.25 mg total) by mouth every 7 days. 12 capsule 11/19/19 25 025 Discontinu ed(Other- Please enter comment in Notes field) vitamin D2, ergocalciferol, (DRISDOL) 1.25 mg capsuleIndicatio ns:Vitamin D deficiency TAKE 1 CAPSULE BY MOUTH ONCE EVERY 7 DAYS 12 capsule 11/19/19 25 025 Discontinu ed(Other- Please enter comment in Notes field) sertraline (ZOLOFT) 50 MG tabletIndication s:Anxiety Take 1 tablet by mouth once daily 90 tablet 04/17/20 25 025 Discontinu ed(Other- Please enter comment in Notes field) bacitracin 500 UNIT/GM ointment Apply topically 2 (two) times daily for 10 days. 15 g 05/26/20 25 025 Discontinu ed(Other- Please enter comment in Notes field) HYDROcodone-acet aminophen (NORCO) 5-325 MG tabletIndication s:Acute Pain < 3 Day Supply Take 1 tablet by mouth every 8 (eight) hours as needed. Indications: Acute Pain < 3 Day Supply 9 tablet 06/04/20 25 025 Active Problems Problem Noted Date Diagnosed Date [...] Encounters Date Type Department Care Team Description 06/04/2025 6:40 PM CDT - 06/04/2025 7:22 PM CDT Emergency [facility] [address] [place] [address] [place] [address] Campbell Lyon MD Gan (Abdomen/) Discharge Disposition: Home or Self Care (Routine Discharge) 06/04/2025 Travel 05/26/2025 4:51 PM CDT - 05/26/2025 5:21 PM CDT Emergency [facility] [address] [place] [address] [place] [address] Wound Discharge Disposition: Home or Self Care (Routine Discharge) 05/26/2025 Travel from Last 3 Months Immunizations Immunization [...] Recorded Patient Health Questionnaire-2 Score 0 10/22/2024 Comments No Sex and Gender Information Value Date Recorded Sex Assigned at Female 10/02/2024 10:48 AM OVERLOCK OPERATOR Legal Sex Female 4:55 PM CDT Gender Identity Not on file Sexual Orientation Not on file Occupation Industry Job Start Date Job End Date Not on file Not on file Not on file Not on file Last Filed Vital Signs Vital Sign Reading Time Taken Comments Blood Pressure 126/105 06/04/2025 7:00 PM CDT Pulse 64 06/04/2025 6:42 PM CDT Temperature 36.3 C (97.4 F) 06/04/2025 6:42 PM CDT Respiratory Rate 20 06/04/2025 6:42 PM CDT Oxygen Saturation 100% 06/04/2025 7:00 PM CDT Inhaled Oxygen Concentration - - Weight 122.5 kg (270 lb) 06/04/2025 6:42 PM CDT Height 162.6 cm (5' 4) 06/04/2025 6:42 PM CDT Body Mass Index 46.35 06/04/2025 6:42 PM CDT Plan of Treatment Upcoming Encounters Date Type Department Care Team (Late st Contact Info) Description 07/28/2025 10:00 AM OVERLOCK OPERATOR Office Visit [facility] Medical Group Family and Sports Medicine - [place] [address] [facility] [place] [address] Albert Ruby MD [address] [place] [address] Health Maintenance Due Date Last Done Comments Kidney Health Evaluation 1999 Diabetes: Retinopathy Eye Exam 2017 Pneumococcal Vaccine: Pediatrics (0 to 5 Years) and At-Risk Patients (6 to 49 Years) (1 of 2 - PCV) 2018 03/26/2001, 07/03/2000, 01/18/2000 Hemoglobin A1C 10/26/2024 04/25/2024, 06/11, 11/13/2020, Additional history exists Lipid Panel 04/25/2025 04/25/2024, 06/11, 11/13/2020, Additional history exists Annual Physical 10/22/2025 10/22/2024, 06/12, 07/01/2022, Additional history exists Cervical Cancer Screening Pap Smear (Age 21 to 29) Every 3 Years 04/07/2028 04/07/2025, 12/03/2023, 09/08/2022, Additional history exists Cervical Cancer Screening 04/07/2028 DTaP, Tdap and Td Vaccines (8 - Td or Tdap) 02/19/2035 02/19/2025, 05/01/2013, 04/18/2005, Additional history exists COVID-19 Vaccine (3 - 2025-26 season) 2112 05/13/2021, 02/23/2021 Postponed from 05/12/2025 (Going to Outside Clinic) Hepatitis B Vaccines Completed 03/26/2001, 03/26/2001, 12/22/2000, Additional history exists HPV Vaccines Completed 05/01/2013, 0809/2012, 08/22/2011, Additional history exists Meningococcal B Vaccine Completed 08/02/2017, 04/19 Meningococcal Vaccine Completed 08/02/2017 , 04/19/2017, 04/19/2017, Additional history exists Hepatitis C Completed 04/25/2024 PHQ-2 (Physician [place]) Completed 10/22/2024 RSV Immunizations Under 20 Months Aged Out [...] HEPATITIS C AB NON-REACT CARRI NON-REACT CARRI [facility] Comment: HCV antibody was non-reactive. There is no laboratory evidence of HCV infection. In most cases, no further action is required. However, if recent HCV exposure is suspected, a test for HCV RNA (test code 56578) is suggested. For additional information please refer to http://education.One[employer]Trist/faq/ZNS22f6 (This link is being provided for informational/ educational purposes only.) 04/25/2024 1:09 PM CDT 04/25/2024 1:14 PM CDT Narrative [facility] - 04/26/2024 11:32 AM CDT FASTING:YES FASTING: YES Resulting Agency Comment Performing Organization Information: Site ID: [place] Name: [facility] Address: [address] [address] Director: Yuli Li MD Albert Ruby MD LABORATORY Final Result [facility] [address] [address], * (ABNORMAL) HEMOGLOBIN, GLYCOSYLATED (04/25/2024 1:09 PM CDT) HGB A1C 5.7(H) <5.7 % of total Hgb [place] Comment: For someone without known diabetes, [...] change in test platforms from the Telles Supervisor Shellfish Farming to the Niurka kulwinder c503 may have shifted HbA1c results compared to historical results. Based on laboratory validation testing conducted at [facility], the Niurka platform relative to the Telles [...] PM CDT 04/25/2024 1:14 PM CDT Narrative [facility] - 04/26/2024 11:32 AM CDT FASTING:YES FASTING: YES Resulting Agency Comment Performing Organization Information: Site ID: [place] [facility]: [facility] Address: [address] [place] [address] Director: Yuli Li Albert Ruby MD LABORATORY Final Result [facility] [employer] [address], * (ABNORMAL) LIPID PANEL (04/25/2024 1:09 PM CDT) CHOLESTEROL 104 <200 mg/dL [facility] HDL 43(L) > OR = 50 mg/dL [facility] TRIGLYCERIDES 67 <150 mg/dL [facility] LDL (CALCULATED) 47 mg/dL (calc) [facility] Comment: Reference range: <100 Desirable range <100 mg/dL for primary prevention; <70 mg/dL for patients with CHD or diabetic patients with > or = 2 CHD risk factors. LDL-C is now calculated using the Amairani calculation, which is a validated novel method providing better accuracy than the Friedewald equation in the estimation of LDL-C. Kevin SS et al. AMAN. 2013;310(19): 2046-9244 (http://education.Beijing Beyondsoft/faq/QYX301) CHOL/HDL RATIO 2.4 <5.0 (calc) [facility] NON HDL CHOLESTEROL 61 <130 mg/dL (calc) [facility] Comment: For patients with diabetes plus [...] Site ID: [place] Name: [facility] Address: [address] [address] Director: Yuli Li MD Albert Ruby MD LABORATORY Final Result [facility] [employer] [facility] [address] [place] [address], from Last 3 Months or Most Recently Relevant to Health Maintenance Insurance [facility] AETNA [address] [place] [id number] Care Teams Locomotive Supervisor Relationship Specialty Start Date End Date Albert Ruby MD [address] [place] [address] PCP - General FAMILY PRACTICE 05/16/18 Tremayne Shi MD [address] [address] EP Roulette Dealer CARDIOVASCULAR DISEASE 08/15/18
--- OUTSIDE RECORDS SUMMARY | 2025-06-08 19:58 | XMS_ITS | Encounter Summary ---
Author Organization [facility] Address [facility]ly [facility] [place] [address] Care Team Providers Care Supervisor Gas Meter Repair Name Role Phone Albert Ruby MD Primary Care Provider [phone] Tremayne Shi MD Unavailable [phone] Encounter Details Date Type Department Care Team (Late st Contact Info) Description 04/06/2021 Death by Party Message Enc [facility] THREE [facility], [facility] [address] [place], [place] [address] Tremayne Shi MD Three [facility]. [facility] [address] [place], [place] [address] RE: Medication Questions Social History Tobacco Use [...] Sex Assigned at Female 10/02/2024 10:48 AM CONDENSER TUBE TENDER Legal Sex Female 4:55 PM CDT Gender Identity Not on file Sexual Orientation Not on file Occupation Industry Job Start Date Job End Date Not on file Not on file Not on file Not on file documented as of this encounter Plan of Treatment Upcoming Encounters Date Type Department Care Team (Late st Contact Info) Description 07/28/2025 10:00 AM CONDENSER TUBE TENDER Office Visit [facility] Medical Group Family and Sports Medicine - [place] [address] [address] Albert Ruby MD [address] [facility] [place] [facility] [address] [place] [address] documented as of this encounter Visit Diagnoses Not on filedocumented in this encounter Additional Health Concerns Infection Onset Date Last Indicated Resolved Time COVID-19 Rule Out 10/02/2024 10/02/2024 10/02/2024 10:45 AM CONDENSER TUBE TENDER Assessment Noted Time PHQ-9 Depression Total Score: 10 021 8:11 AM CONDENSER TUBE TENDER documented as of this encounter Care Teams Supervisor Gas Meter Repair Relationship Specialty Start Date End Date Albert Ruby MD [address] [facility] [place] [facility] [address] [place] [address] PCP - General FAMILY PRACTICE 05/16/18 Trem[facility] Shi MD [facility] [address] [place] [address] EP Vessel Engineer CARDIOVASCULAR DISEASE 08/15/18 documented as of this encounter
--- OUTSIDE RECORDS SUMMARY | 2025-06-08 19:58 | XMS_ITS | Encounter Summary ---
Author Organization [facility] Address [facility] [place] [address] Care Team Providers Care Deburr Technician Name Role Phone Albert Ruby MD Primary Care Provider [phone] Tremayne Shi MD Unavailable [phone] Encounter Details Date Type Department Care Team (Late st Contact Info) Description 02/16/2021 [email or web address] Message Enc [facility] Medical Group Family and Sports Medicine - [place] [address] [place] [address] Albert Ruby MD [address] [address] RE: Referral Request Social History Tobacco Use [...] Sex Assigned at Female 10/02/2024 10:48 AM REDUCING SALON ATTENDANT Legal Sex Female 4:55 PM CDT Gender Identity Not on file Sexual Orientation Not on file Occupation Industry Job Start Date Job End Date Not on file Not on file Not on file Not on file documented as of this encounter Plan of Treatment Upcoming Encounters Date Type Department Care Team (Late st Contact Info) Description 07/28/2025 10:00 AM REDUCING SALON ATTENDANT Office Visit [facility] Medical Group Family and Sports Medicine - [place] [address] [place] [address] Albert Ruby MD [address] [facility] [address] [place] [address] documented as of this encounter Visit Diagnoses Not on filedocumented in this encounter Additional Health Concerns Infection Onset Date Last Indicated Resolved Time COVID-19 Rule Out 10/02/2024 10/02/2024 10/02/2024 10:45 AM REDUCING SALON ATTENDANT Assessment Noted Time PHQ-9 Depression Total Score: 10 021 8:11 AM REDUCING SALON ATTENDANT documented as of this encounter Care Teams Deburr Technician Relationship Specialty Start Date End Date Albert Ruby MD [address] [facility] [address] [place] [address] PCP - General FAMILY PRACTICE 05/16/18 Tremayne Shi MD [address] [place] [address] EP Lan Manager CARDIOVASCULAR DISEASE 08/15/18 documented as of this encounter
--- OUTSIDE RECORDS SUMMARY | 2025-06-08 19:58 | XMS_ITS | Encounter Summary ---
Author Organization [facility] Address [address] [place] [address] Care Team Providers Care Help Desk Supervisor Name Role Phone Albert Ruby MD Primary Care Provider [phone] Tremayne Shi MD Unavailable [phone] Reason for Visit * Reason Onset Date Comments Appointment Request 06/30/2021 Encounter Details Date Type Department Care Team (Late st Contact Info) Description 06/30/2021 FlowBelow Aero Message Enc [facility] THREE [facility], [facility] [address] [place] [address] Tremayne Shi MD Three [facility]. [facility] [address] [place] [address] RE: Follow Up/Update Social History [...] Sex Assigned at Female 10/02/2024 10:48 AM SERVICE AND REPAIR SUPERVISOR Legal Sex Female 4:55 PM CDT [...] of this encounter Progress Notes * Elle Stpales - 07/07/2021 11:16 AM CDT LVM for pt to contact our office to schedule a vv appt. * Tracy Guy - 06/30/2021 5:18 PM CDT I left patient a voicemail and sent her a FlowBelow Aero message asking her to contact me to schedule a virtual visit. documented in this encounter Plan of Treatment Upcoming Encounters Date Type Department Care Team (Late st Contact Info) Description 07/28/2025 10:00 AM SERVICE AND REPAIR SUPERVISOR Office Visit [facility] Medical Group Family and Sports Medicine - [place] [address] [place] [address] Albert Ruby MD [address] [place] [address] documented as of this encounter Visit Diagnoses Not on filedocumented in this encounter Additional Health Concerns Infection Onset Date Last Indicated Resolved Time COVID-19 Rule Out 10/02/2024 10/02/2024 10/02/2024 10:45 AM SERVICE AND REPAIR SUPERVISOR Assessment Noted Time PHQ-9 Depression Total Score: 8 06/17/20 21 1:36 PM CDT documented as of this encounter Care Teams Help Desk Supervisor Relationship Specialty Start Date End Date Albert Ruby MD [address] [place] [address] PCP - General FAMILY PRACTICE 05/16/18 Tremayne Shi MD Three [facility]. [address] [address] EP Director Of Employee Development CARDIOVASCULAR DISEASE 08/15/18 documented as of this encounter
--- OUTSIDE RECORDS SUMMARY | 2025-06-08 19:58 | XMS_ITS | Encounter Summary ---
Author Organization [facility] Address [facility] [place] [address] Care Team Providers Care Metal Burnisher Name Role Phone Albert Ruby MD Primary Care Provider [phone] Tremayne Shi MD Unavailable [phone] Encounter Details Date Type Department Care Team (Late st Contact Info) Description 05/23/2023 CaLivingBenefitst Message Enc [facility] Medical Group Family and Sports Medicine - [place] [address] [place] [address] Tana Dennison, CARDIOLOGY TECHNOLOGIST [address] [place] [address] Blood pressures Social History Tobacco Use Types [...] Sex Assigned at Female 10/02/2024 10:48 AM FIRE RANGER Legal Sex Female 4:55 PM CDT Gender Identity Not on file Sexual Orientation Not on file Occupation Industry Job Start Date Job End Date Not on file Not on file Not on file Not on file documented as of this encounter Plan of Treatment Upcoming Encounters Date Type Department Care Team (Late st Contact Info) Description 07/28/2025 10:00 AM FIRE RANGER Office Visit [facility] Medical Group Family and Sports Medicine - [place] [address] [facility] [place] [address] Albert Ruby MD [address] [facility] [address] [place] [address] documented as of this encounter Visit Diagnoses Not on filedocumented in this encounter Additional Health Concerns Infection Onset Date Last Indicated Resolved Time COVID-19 Rule Out 10/02/2024 10/02/2024 10/02/2024 10:45 AM FIRE RANGER Assessment Noted Time PHQ-9 Depression Total Score: 11 022 11:44 AM CDT documented as of this encounter Care Teams Metal Burnisher Relationship Specialty Start Date End Date Albert Ruby MD [address] [facility] [address] '[place] [address] PCP - General FAMILY PRACTICE 05/16/18 Tremayne Shi MD [address] [place] [address] EP Econometrician CARDIOVASCULAR DISEASE 08/15/18 documented as of this encounter
--- OUTSIDE RECORDS SUMMARY | 2025-06-08 19:58 | XMS_ITS | Encounter Summary ---
Author Organization [facility] Address [address] [place] [address] Care Team Providers Care Abrasive Grader Name Role Phone Albert Ruby MD Primary Care Provider [phone] Reason for Visit * Reason Onset Date Comments Care 03/03/2025 Feeling pressure in pelvic area Encounter Details Date Type Department Care Team (Late st Contact Info) Description 03/03/2025 Telephone [facility] - Centralized Scheduling [address] [place] [address] Ольга Breen APRN-FELICITAS [address] [place] [address] Care (Feeling pressure in pelvic area) Social History Tobacco Use Types Packs/Day Years Used Date Smoking Tobacco: Never Alcohol Use Standard Drinks/Week Comments No 0 (1 standard drink = 0.6 oz pur e alcohol) PHQ-2 Answer Date Recorded Patient Health Questionnaire-2 Score 0 02/25/2025 [place] Depression Scale Answer Date Recorded [place] Depression Scale Total 4 03/04/2025 The thought [...] PM CDT Legal Sex Female 5:26 AM AIRPORT ENGINEER Gender Identity Not on file Sexual Orientation Not on file Occupation Industry Job Start Date Job End Date 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 She ishoping to move her visit from tomorrow to sometime today. Please assist, thank you Patient Call Back Number: [phone] documented in this encounter Plan of Treatment Upcoming Encounters Date Type Department Care Team (Late st Contact Info) Description 06/09/2025 9:20 AM CDT Clinical Support [facility] - PUBLIC WORKS SUPERVISOR [address] [place] [address] 06/09/2025 9:30 AM CDT Procedure visit [facility] - PUBLIC WORKS SUPERVISOR [address] [place] [address] Mandy Krishnan, LABOR RELATIONS SPECIALIST-VOLUNTEER FIREFIGHTER [address] [place] [address] 06/10/2025 1:40 PM CDT Procedure visit [facility] - PUBLIC WORKS SUPERVISOR [address] [place] [address] Leila Burt, LABOR RELATIONS SPECIALIST-VOLUNTEER FIREFIGHTER [address] [place] [address] documented as of this encounter Visit Diagnoses Not on filedocumented in this encounter Care Teams Abrasive Grader Relationship Specialty Start Date End Date Albert Ruby MD [address] [address] PCP - General Family Medicine 11/08/24 documented as of this encounter
--- OUTSIDE RECORDS SUMMARY | 2025-06-08 19:58 | XMS_ITS | Encounter Summary ---
Author Organization [facility] Address [facility] [place] [address] Care Team Providers Care Magazine Keeper Name Role Phone Albert Ruby MD Primary Care Provider [phone] Tremayne Shi MD Unavailable Encounter Details Date Type Department Care Team (Late st Contact Info) Description 10/03/2022 [employer] Message Enc [facility] Medical Group Family and Sports Medicine - [place] [address] [place] [address] Albert Ruby MD [address] [address] Depression Medications Social History Tobacco Use Types [...] Sex Assigned at Female 10/02/2024 10:48 AM SPANISH MOSS PICKER Legal Sex Female 4:55 PM CDT Gender Identity Not on file Sexual Orientation Not on file Occupation Industry Job Start Date Job End Date Not on file Not on file Not on file Not on file documented as of this encounter Plan of Treatment Upcoming Encounters Date Type Department Care Team (Late st Contact Info) Description 07/28/2025 10:00 AM SPANISH MOSS PICKER Office Visit [facility] Medical Group Family and Sports Medicine - [place] [address] [place] [address] Albert Ruby MD [address] [facility] [address] [place] [address] documented as of this encounter Visit Diagnoses Not on filedocumented in this encounter Additional Health Concerns Infection Onset Date Last Indicated Resolved Time COVID-19 Rule Out 10/02/2024 10/02/2024 10/02/2024 10:45 AM SPANISH MOSS PICKER Assessment Noted Time PHQ-9 Depression Total Score: 11 022 11:44 AM CDT documented as of this encounter Care Teams Magazine Keeper Relationship Specialty Start Date End Date Albert Ruby MD [address] [facility] [address] [place] [address] PCP - General FAMILY PRACTICE 05/16/18 Tremayne Shi MD [facility] [address] [place] [address] EP Infant Nanny CARDIOVASCULAR DISEASE 08/15/18 documented as of this encounter
--- OUTSIDE RECORDS SUMMARY | 2025-06-08 19:58 | XMS_ITS | Encounter Summary ---
Author Organization [facility] Address [facility] [place] [address] Care Team Providers Care Site Monitor Name Role Phone Albert Ruby MD Primary Care Provider [phone] Tremayne Shi MD Unavailable [phone] Encounter Details Date Type Department Care Team (Late st Contact Info) Description 05/04/2021 [employer] Message Enc [facility] Medical Group Family and Sports Medicine - [place] [address] [place] [address] Albert Ruby MD [address] [address] RE: Question Social History Tobacco Use Types [...] Sex Assigned at Female 10/02/2024 10:48 AM ONLINE MERCHANT Legal Sex Female 4:55 PM CDT Gender Identity Not on file Sexual Orientation Not on file Occupation Industry Job Start Date Job End Date Not on file Not on file Not on file Not on file documented as of this encounter Plan of Treatment Upcoming Encounters Date Type Department Care Team (Late st Contact Info) Description 07/28/2025 10:00 AM ONLINE MERCHANT Office Visit [facility] Medical Group Family and Sports Medicine - [place] [address] [facility] [place] [address] Albert Rbuy MD [address] [facility] [address] [place] [address] documented as of this encounter Visit Diagnoses Not on filedocumented in this encounter Additional Health Concerns Infection Onset Date Last Indicated Resolved Time COVID-19 Rule Out 10/02/2024 10/02/2024 10/02/2024 10:45 AM ONLINE MERCHANT Assessment Noted Time PHQ-9 Depression Total Score: 10 021 8:11 AM ONLINE MERCHANT documented as of this encounter Care Teams Site Monitor Relationship Specialty Start Date End Date Albert Ruby MD [address] [facility] [address] [place] [address] PCP - General FAMILY PRACTICE 05/16/18 Tremayne Shi MD [address] [place] [address] EP Brownfield Program Coordinator CARDIOVASCULAR DISEASE 08/15/18 documented as of this encounter
--- OUTSIDE RECORDS SUMMARY | 2025-06-08 19:58 | XMS_ITS | Encounter Summary ---
Author Organization [facility] Address [address] [place] [address] Care Team Providers Care Therapeutic Consultant Name Role Phone Magda Gregorio DO Primary Care Provider [phone] Encounter Details Date Type Department Care Team (Late st Contact Info) Description 02/05/2009 Outpatient Historical [facility] Bailey Arana MD [address] [place] [address] Abdominal Pain, Unspecified Site Social History Tobacco Use Types Packs/Day Years Used Date Smoking Tobacco: Never Assessed Comments Unknown Sex and Gender Information Value Date Recorded Sex Assigned at Not on file Legal Sex Female 5:41 AM APPRAISER LAND Gender Identity Not on file Sexual Orientation [...] AM CDT Narrative 02/05/2009 1:[address] [facility] [address] [place], [place] [address] Admit Date: 02/05/2009 PRANAY GONZALEZ Sex: F Admit Prov: BAILEY ARAAN Date: 2000 Primary Care Prov: BAILEY ARANA CMRN: [id number] Room: [facility] SSN: IMAGING SERVICES Ordering Prov: N/A Accession Number: [id number] Interpretation Examination: Ultrasound Abdomen Limited (Gallbladder and [...] PAUL 02/05/2009 10:53 Electronically signed by: Eneida APUL 02/05/2009 10:53 Procedure Note Everton Paul MD - 02/05/2009 [facility] [address] [place], [place] [address] Admit Date: 02/05/2009 LISAPRANAY Sex: F Admit Prov: BAILEY ARANA Date: 2000 Primary Care Prov: BAILEY ARANA CMRN: [id number] Room: [facility] SSN: IMAGING SERVICES Ordering Prov: N/A Interpretation [...] site documented in this encounter Care Teams Therapeutic Consultant Relationship Specialty [place] [address] [address] [place] [address] PCP - General Internal Medicine 10/14/22 documented as of this encounter
--- OUTSIDE RECORDS SUMMARY | 2025-06-08 19:58 | XMS_ITS | Clinical Summary ---
Author Organization [facility] Address [address] [address] Phone Care Team Providers Care Rv Technician Name Role Phone Albert Ruby MD Primary Care Provider [phone] Allergies Active Allergy Reactions Criticality Noted Date [...] 7:20 AM CDT Height 161.3 cm (5' 3.5) 12/26/2023 7:20 AM CDT Body Mass Index 52.1 12/26/2023 7:20 AM CDT Plan of Treatment Health Maintenance Due Date Last Done Comments Pap Smear 2020 Influenza Immunization (#1) 2025 07/09/2022, 06/05/2020, 05/12/2020, Additional history exists SARS-COV-2 Immunization ( season) 2025 05/13/2021, 02/23/2021 Respiratory Syncytial Virus (RSV) Immunization [...] to complete this topic Insurance [facility] Care Teams Rv Technician Relationship Specialty Start Date End Date Albert Ruby MD [address] [address] PCP - General Family Medicine 12/26/23
--- OUTSIDE RECORDS SUMMARY | 2025-06-08 19:58 | XMS_ITS | Encounter Summary ---
Author Organization [facility] Address [facility] [place] [address] Care Team Providers Care Industrial Maintenance Millwright Name Role Phone Albert Ruby MD Primary Care Provider [phone] Tremayne Shi MD Unavailable [phone] Encounter Details Date Type Department Care Team (Late st Contact Info) Description 12/15/2021 Notifot Message Enc [facility] Medical Group Family and Sports Medicine - [place] [address] [place] [address] Albert Ruby MD [address] [address] Medication refills Social History Tobacco Use Types [...] Sex Assigned at Female 10/02/2024 10:48 AM IRB COMPLIANCE COORDINATOR Legal Sex Female 4:55 PM CDT Gender Identity Not on file Sexual Orientation Not on file Occupation Industry Job Start Date Job End Date Not on file Not on file Not on file Not on file documented as of this encounter Plan of Treatment Upcoming Encounters Date Type Department Care Team (Late st Contact Info) Description 07/28/2025 10:00 AM IRB COMPLIANCE COORDINATOR Office Visit [facility] Medical Group Family and Sports Medicine - [place] [address] [facility] [address] Albert Ruby MD [address] [facility] [address] [place] [address] documented as of this encounter Visit Diagnoses Not on filedocumented in this encounter Additional Health Concerns Infection Onset Date Last Indicated Resolved Time COVID-19 Rule Out 10/02/2024 10/02/2024 10/02/2024 10:45 AM IRB COMPLIANCE COORDINATOR Assessment Noted Time PHQ-9 Depression Total Score: 8 06/17/20 21 1:36 PM CDT documented as of this encounter Care Teams Industrial Maintenance Millwright Relationship Specialty Start Date End Date Albert Ruby MD [address] [facility] [address] [place] [address] PCP - General FAMILY PRACTICE 05/16/18 Tremayne Shi MD [address] [place] [address] EP Combat Systems Operator CARDIOVASCULAR DISEASE 08/15/18 documented as of this encounter
--- OUTSIDE RECORDS SUMMARY | 2025-06-08 19:58 | XMS_ITS | Encounter Summary ---
Author Organization [facility] Address [facility] [place] [address] Care Team Providers Care Timber Harvester Operator Name Role Phone Albert Ruby MD Primary Care Provider [phone] Tremayne Shi MD Unavailable [phone] Encounter Details Date Type Department Care Team (Late st Contact Info) Description 04/03/2021 Fixyat Message Enc [facility] Medical Group Family and Sports Medicine - [place] [address] [place] [address] Albert Ruby MD [address] [address] RE: Referral Request Social History Tobacco Use [...] Sex Assigned at Female 10/02/2024 10:48 AM PILOT CONTROL OPERATOR Legal Sex Female 4:55 PM CDT Gender Identity Not on file Sexual Orientation Not on file Occupation Industry Job Start Date Job End Date Not on file Not on file Not on file Not on file documented as of this encounter Plan of Treatment Upcoming Encounters Date Type Department Care Team (Late st Contact Info) Description 07/28/2025 10:00 AM PILOT CONTROL OPERATOR Office Visit [facility] Medical Group Family and Sports Medicine - [place] [address] [facility] [place] [address] Albert Ruby MD [address] [facility] [address] [place] [address] documented as of this encounter Visit Diagnoses Not on filedocumented in this encounter Additional Health Concerns Infection Onset Date Last Indicated Resolved Time COVID-19 Rule Out 10/02/2024 10/02/2024 10/02/2024 10:45 AM PILOT CONTROL OPERATOR Assessment Noted Time PHQ-9 Depression Total Score: 10 021 8:11 AM PILOT CONTROL OPERATOR documented as of this encounter Care Teams Timber Harvester Operator Relationship Specialty Start Date End Date Albert Ruyb MD [address] [facility] [address] [place] [address] PCP - General FAMILY PRACTICE 05/16/18 Tremayne Shi MD [address] [place] [address] EP Powder And Primer Canning Leader CARDIOVASCULAR DISEASE 08/15/18 documented as of this encounter
--- OUTSIDE RECORDS SUMMARY | 2025-06-08 19:58 | XMS_ITS | Encounter Summary ---
Author Organization [facility] Address [facility] [place] [address] Care Team Providers Care Aircraft Mechanic Name Role Phone Albert Ruby MD Primary Care Provider [phone] Tremayne Shi MD Unavailable [phone] Encounter Details Date Type Department Care Team (Late st Contact Info) Description 03/24/2021 Streakt Message Enc [facility] Medical Group Family and Sports Medicine - [place] [address] [place] [address] Albert Ruby MD [address] [address] RE: Other Social History Tobacco Use Types [...] Sex Assigned at Female 10/02/2024 10:48 AM LEATHER COVERER Legal Sex Female 4:55 PM CDT Gender Identity Not on file Sexual Orientation Not on file Occupation Industry Job Start Date Job End Date Not on file Not on file Not on file Not on file documented as of this encounter Plan of Treatment Upcoming Encounters Date Type Department Care Team (Late st Contact Info) Description 07/28/2025 10:00 AM LEATHER COVERER Office Visit [facility] Medical Group Family and Sports Medicine - [place] [address] [facility] [place] [address] Albert Ruby MD [address] [facility] [address] [place] [address] documented as of this encounter Visit Diagnoses Not on filedocumented in this encounter Additional Health Concerns Infection Onset Date Last Indicated Resolved Time COVID-19 Rule Out 10/02/2024 10/02/2024 10/02/2024 10:45 AM LEATHER COVERER Assessment Noted Time PHQ-9 Depression Total Score: 10 021 8:11 AM LEATHER COVERER documented as of this encounter Care Teams Aircraft Mechanic Relationship Specialty Start Date End Date Albert Ruby MD [address] [facility] [address] [place] [address] PCP - General FAMILY PRACTICE 05/16/18 Tremayne Shi MD [address] [place] [address] EP Electronic Equipment Installer CARDIOVASCULAR DISEASE 08/15/18 documented as of this encounter
--- OUTSIDE RECORDS SUMMARY | 2025-06-08 19:58 | XMS_ITS | Clinical Summary ---
Author Organization [facility] Address [address] [facility] [place] [address] Care Team Providers Care Clinical Reviewer Name Role Phone Albert Ruby MD Primary Care Provider [phone] Source Comments [facility],non-owned Affiliates and Associated Physician Practices is amultiple site organization consisting of ambulatory clinics and hospital sitesin [place], [place], [place] and [place]. This disclosure is being madepursuant to the Care Everywhere program and may not contain all information available regarding this patient. Last updated 18.[facility] Allergies Active Allergy Reactions Criticality Noted Date [...] document. Alwaysverify current medications with the patient. NIFEdipine CR osmotic 24hr (Procardia XL) 30 MG tablet Take 1 (one) tablet by mouth 2 times daily 180 tablet 2 5 Active Additional Information Patient not taking.Reported on 05/22/2025 Cholecalciferol (Vitamin D) 50 MCG (1999) capsuleIndicati ons:Vitamin D Deficiency Take 1 (one) capsule by mouth once daily Reasons: Vitamin D Deficiency 90 capsule 3 5 Active metoprolol succinate XL 24hr (Toprol XL) 100 MG tablet Take 1 (one) tablet by mouth 2 times daily Active sertraline (Zoloft) 50 MG tablet Take 1 (one) tablet by mouth once daily 30 tablet 3 5 Active docusate sodium (Colace) 100 MG capsule Take 1 (one) capsule by mouth once daily 50 capsule 1 5 Active ferrous sulfate 325 (65 FE) MG tablet Take 1 (one) tablet by mouth once daily 60 tablet 2 5 Active polyethylene glycol 3350 (Miralax) 17 GM/SCOOP powder Take 17 (seventeen) g by mouth once daily 119 g 5 Active Additional Information Patient not taking.Reported on 05/22/2025 ibuprofen (Motrin) 600 MG tablet Take 1 (one) tablet by mouth every 6 hours as needed for Pain 50 tablet 1 5 Active naloxone HCl (Narcan) 4 MG/0.1ML nasal spray Johnston 1 (one) spray into the nose as needed (May repeat every 2 min in alternating nostrils until emergency medical help arrives for overdose) 2 Each 5 Active Additional Information Patient not taking.Reported on 05/22/2025 plus iron (Natatab) 29-1 MG tablet Take 1 (one) tablet by mouth once daily 100 tablet 1 5 Active oxyCODONE, immediate release, (Roxicodone) 5 MG tabletIndicatio ns:H/O section Take 1 (one) tablet by mouth every 4 hours as needed for Pain 12 tablet 5 Active Additional Information Patient not taking.Reported on 05/22/2025 acetaminophen (Tylenol) 500 MG capsule Take 2 (two) capsules by mouth every 6 hours as needed for Fever or Pain 60 capsule 1 5 Active NIFEdipine CR osmotic 24hr (Adalat CC) 60 MG tablet Take 1 (one) tablet by mouth 2 times daily 60 tablet 1 5 Active Additional Information Patient taking differently:60 mg OralDAILY, Reported on 05/22/2025 Skin Protectants, Misc. (InterDry 10x36) SHEE 1 Units by Apply externally route once daily as needed Lay a single layer of the fabric into the base of the skin fold or smoothly against the skin. Replace if it becomes soiled with urine, feces, or excessive perspiration. 1 Each 1 Active nystatin (Mycostatin) 915124 UNIT/GM powder Apply to affected area 2 times daily 60 g Active Active Problems Problem Noted Date Diagnosed Date wound disruption 05/22/2025 Superficial hematoma 05/22/2025 care following delivery 04/12 Chronic hypertension 05/05/2025 History of severe pre-eclampsia: G1 05/05/2025 History of section, low transverse 04/12 Overview (05/05/2025): - G1 (04/2025): pLTCS at 37.1wks for NRFHTs and remote from delivery - Normal appearing gravid uterus, tubes and ovaries. History of hemorrhage 05/05/2025 Overview (05/05/2025): - G1 (2024): 1.1L; due to atony and bleeding from hysterotomy. Extension of mid- left aspect of hysterotomy Acute blood loss anemia: G1 05/05/2025 History of blood transfusion 05/05/2025 Overview (05/05/2025): - S/P 2 units pRBC in G1 Obesity, Class III, BMI 40-49.9 (morbid obesity) 05/05/2025 Anxiety and depression 05/05/2025 SVT (supraventricular tachycardia) 12/24/2024 Pre-diabetes 12/24/2024 Fracture of tibia, distal, right, closed 013 GERD (gastroesophageal reflux disease) Overview (11/08/2024): since infancy Resolved Problems Problem Noted Date Diagnosed Date Resolved Date Encounter for induction of labor 04/24/2025 05/05/2025 Encounter for supervision of high risk due to anomaly, third trimester 04/21/2025 05/05/2025 headache in third trimester 04/15/2025 05/05/2025 related nausea, antepartum 04/15/2025 05/05/2025 Vaginal discharge 04/07/2025 04/08/2025 Elevated blood pressure read ing without diagnosis of hypertension 03/24/2025 03/27/2025 Abnormal glucose tolerance in 03/04/2025 03/27/2025 Mental disorder affecting pr egnancy in third trimester (HCC): Depression/Anxiety 03/04/2025 08/2 01/2025 Anemia affecting in third trimester 03/04/2005/05/2025 Supervision of high risk pre gnancy in third trimester 12/24/2024 05/05/2025 Obesity affecting 11/08/2024 05/05/2025 Chronic hypertension affecting 11/08/2024 05/05/2025 Pain from implanted hardware 10/31/2013 11/02/2013 Restless legs syndrome (RLS) 11/04/2010 12/24/2024 Encounters Date Type Department Care Team Description 05/28/2025 Telephone [facility] - WAREHOUSE OPERATOR [address] [place] [address] Ольга Breen APRN-CNP Appointment 05/26/2025 Telephone [facility] - WAREHOUSE OPERATOR [address] [place] [address] Rufino Platt MD Question 05/22/2025 3:40 PM CDT Office Visit [facility] - WAREHOUSE OPERATOR [address] [place] [address] Ольга Breen APRN-CNP care following delivery ([facility]) (Primary Dx); Chronic hypertension; History of severe pre-eclampsia: G1; History of section, low transverse; wound disruption ([facility]); Superficial hematoma; Anxiety and depression; Obesity, Class III, BMI 40-49.9 (morbid obesity) ([facility]); History of blood transfusion; Acute blood loss anemia: G1; History of hemorrhage; SVT (supraventricular tachycardia) ([facility]) 05/22/2025 Travel 05/16/2025 Telephone [facility] - Centralized Scheduling [address] [place] [phone] Ольга Breen APRN-CNP Care 05/05/2025 10:20 AM CDT Office Visit [facility] - WAREHOUSE OPERATOR [address] [phone] Ольга Breen APRN-CNP care following delivery (HCC) (Primary Dx); Chronic hypertension; History of severe pre-eclampsia: G1; SVT (supraventricular tachycardia) (HCC); History of section, low transverse; History of hemorrhage; Acute blood loss anemia: G1; History of blood transfusion; Obesity, Class III, BMI 40-49.9 (morbid obesity) ([facility]); Pre-diabetes; Anxiety and depression 05/05/2025 Travel 05/01/2025 Telephone [facility] - WAREHOUSE OPERATOR [address] [place] [phone] Ольга Breen APRN-CNP Coordination Of Care 04/26/2025 8:15 PM CDT - 04/26/2025 9:52 PM CDT Surgery [place] [phone] Head, Jailyn Bhatt MD SECTION (EMERGENCY) 04/26/2025 1:00 AM CDT Anesthesia Event [facility] [address] [place] [address] Marciano Dotson MD Gerlach, Bradley T, SURVEY QUESTIONNAIRE DESIGNER-SHIP RUNNER 04/24/2025 7:54 PM CDT - 04/29/2025 6:41 PM CDT Hospital Encounter [facility] 6W MOTHER/BABY [address] [place] [address] Meghann Chamorro MD Obstetrics Discharge Disposition: Home or Self Care 04/23/2025 Telephone [facility] - WAREHOUSE OPERATOR [address] [place] [address] [place] [phone] Rufino Platt MD Concerns; Care 04/21/2025 4:14 PM CDT - 04/22/2025 11:20 AM CDT Hospital Encounter [facility] 5E ANTEPARTUM/MOTHER BABY [address] [place] [address] Jailyn Zuñiga MD Discharge Disposition: Home or Self Care 04/21/2025 4:00 PM CDT visit [facility] - WAREHOUSE OPERATOR [address] [place] [phone] Rufino Platt MD GA: 36w3d 04/21/2025 3:15 PM CDT Procedure visit [facility] - WAREHOUSE OPERATOR [address] [place] [address] Ave [address] [place] [phone] growth restriction antepartum (HCC) ; Obesity affecting in third trimester, unspecified obesity type (HCC); Mental disorder affecting in third trimester (HCC): Depression/Anxiety; Chronic hypertension affecting (HCC) 04/21/2025 2:30 PM CDT Procedure visit [facility] - WAREHOUSE OPERATOR [address] [place], [place] [address] [address] [place] [phone] Obesity affecting in third trimester, unspecified obesity type (HCC) ; Chronic hypertension affecting (HCC) 04/21/2025 Travel 04/17/2025 Telephone [facility] - WAREHOUSE OPERATOR [address] [place], [place] [address] [address] [place] [phone] Ольга Breen APRN-CNP Follow-up 04/15/2025 4:58 PM CDT - 04/16/2025 12:18 PM CDT Hospital Encounter [facility] 5E ANTEPARTUM/MOTHER BABY [address] [place] [address] Meghann Chamorro MD Discharge Disposition: Home or Self Care 04/15/2025 4:00 PM CDT visit [facility] - WAREHOUSE OPERATOR [address] [place], [place] [address] [address] [place] [phone] Ольга Breen APRN-CNP GA: [id number] 04/15/2025 3:15 PM CDT Procedure visit [facility] - WAREHOUSE OPERATOR [address] [place] [address] Ave [address] [place] [phone] Obesity affecting in third trimester, unspecified obesity type (HCC) ; SVT (supraventricular tachycardia) (HCC); Pre-diabetes; Mental disorder affecting in third trimester (HCC): Depression/Anxiety; Chronic hypertension affecting (HCC); Poor growth affecting management of mother in third trimester, single or unspecified fetus (HCC) 04/15/2025 2:30 PM CDT Procedure visit [facility] - WAREHOUSE OPERATOR [address] [place] [address] ERRONEOUS ENCOUNTER--DISREGARD 04/15/2025 Travel 04/14/2025 Telephone [facility] - WAREHOUSE OPERATOR [address] [place] [address] Ольга Breen APRN-CNP Appointment; Care 04/08/2025 4:00 PM CDT visit [facility] - WAREHOUSE OPERATOR [address] [place] [address] Ольга Breen APRN-CNP GA: [id number] 04/08/2025 3:15 PM CDT Procedure visit [facility] - WAREHOUSE OPERATOR [address] [place] [phone] Obesity in (HCC) 04/08/2025 2:30 PM CDT [facility] [address] [place] [address] Supervision of high risk in third trimester (HCC) ; Chronic hypertension affecting (HCC); Pre-diabetes 04/08/2025 Travel 04/07/2025 8:57 AM CDT - 04/07/2025 2:28 PM CDT Hospital Encounter [facility] 5 L[address] [place] [address] Chayito Awad MD Discharge Disposition: Home or Self Care 04/07/2025 Telephone [facility] - WAREHOUSE OPERATOR [address] [place] [address] Ольга Breen APRN-CNP Care 04/07/2025 Travel 04/01/2025 4:00 PM CDT visit [facility] - WAREHOUSE OPERATOR [address] [place] [address] Ольга Breen APRN-CNP GA: [id number] 04/01/2025 3:15 PM CDT Procedure visit [facility] - WAREHOUSE OPERATOR [address] [place] [address] Obesity in (HCC) ; HTN in , chronic (HCC) 04/01/2025 2:30 PM CDT Procedure visit [facility] - WAREHOUSE OPERATOR [address] [place] [address] Chronic hypertension affecting (HCC) 04/01/2025 Travel 03/31/2025 Telephone [facility] - WAREHOUSE OPERATOR [address] [place] [address] Ольга Breen APRN-CNP Care 03/31/2025 Telephone [facility] - WAREHOUSE OPERATOR [address] [place] [address] Kiah Breen APRN-CNP Opened In Error 03/27/2025 3:20 PM CDT visit [facility] - WAREHOUSE OPERATOR [address] [place] [address] Ольга Breen APRN-CNP GA: 32w6d 03/27/2025 2:30 PM CDT Procedure visit [facility] - WAREHOUSE OPERATOR [address] [place] [address] Obesity affecting in third trimester, unspecified obesity type (HCC) ; Mental disorder affecting in third trimester (HCC): Depression/Anxiety; Chronic hypertension affecting (HCC); Supervision of high risk in third trimester (HCC) 03/27/2025 2:00 PM CDT Procedure visit [facility] - WAREHOUSE OPERATOR [address] [place] [phone] Chronic hypertension affecting (HCC) 03/27/2025 Travel 03/24/2025 4:45 PM CDT - 03/24/2025 10:18 PM CDT Hospital Encounter [facility] 5 L[address] [place] [address] Tremayne Awad MD Discharge Disposition: Home or Self Care 03/12/2025 Telephone [facility] - WAREHOUSE OPERATOR [address] [place] [address] Ольга Breen APRN-FELICITAS Contraceptive management (Nexplanon) from Last 3 Months Immunizations Immunization Administration Dates Next Due Cat Amania primary monoval ent 12+ yr 0.3mL Purple [...] B VACCINE 08/02/2017,04/19/2017 MENINGOCOCCAL VACCINE 08/22/2011 MMR 04/29/2025 MMR VACCINE 04/18/2005,12/22/2000 MMR/VARICELLA 04/15/2005,12/22/2000 Meningococcal B Recombinant 2 Dose, IM 7,04/19/2017 PNEUMOCOCCAL PCV7 CONJ, PEDS 03/26/2001,07/03/20 00,01/18/2000 POLIO IPV 03/26/2001,01/18/2000,1999 POLIO OPV 04/18/2005 POLIO,HISTORIC VACCINE 04/18/2005 TDAP (7yrs+) 04/27/2025(Deferred: - pt received 02/19/25),02/19/2025 TDAP, HISTORIC VACCINE 05/01/2013 VARICELLA 12/22/2000 VARICELLA [...] Recorded Patient Health Questionnaire-2 Score 0 04/14/2025 [facility] [place] of Occupat ional Health - Occupational Stress [...] things needed for daily living? No 04/24/2025 [place] Depression Scale Answer Date Recorded [place] Depression Scale Total 0 05/22/2025 The thought of harming myself has occurred to me . Never 05/22/2025 Housing Stability Vital Sign Answer Steven e Recorded In the last 12 months, was t here a time when you were not able to pay the mortgage or rent on time? No 04/24/2025 In the past 12 months, how m any times have you moved where you were living? 1 04/24/2025 At any time in the past 12 m [facility], were you homeless or living in a retirement (including now)? No 04/24/2025 Education Answer Date Recorded What is the highest level of school you have completed or the highest degree you have received? 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[employer] & [employer] Not on file Not on file Not on file Last Filed Vital Signs Vital Sign Reading Time Taken Comments Blood Pressure 124/80 05/22/2025 3:09 PM CDT Pulse 74 05/22/2025 3:09 PM CDT Temperature 36.7 C (98 F) 04/29/2025 3:15 PM CDT Respiratory Rate 18 04/29/2025 3:15 PM CDT Oxygen Saturation 99% 04/29/2025 3:15 PM CDT Inhaled Oxygen Concentration - - Weight 132.5 kg (292 lb) 05/22/2025 3:09 PM CDT Height 162.6 cm (5' 4) 05/22/2025 3:09 PM CDT Body Mass Index 50.12 05/22/2025 3:09 PM CDT Plan of Treatment Upcoming Encounters Date Type Department Care Team (Late st Contact Info) Description 06/09/2025 9:20 AM CDT Clinical Support [facility] - WAREHOUSE OPERATOR [address] [place] [phone] 06/09/2025 9:30 AM CDT [facility]SE OPERATOR [address] [place] [phone] Mandy Krishnan, SURVEY QUESTIONNAIRE DESIGNER-DESTATICIZER FEEDER [address] [place] [phone] 06/10/2025 1:40 PM CDT Procedure visit [facility] - WAREHOUSE OPERATOR [address] [place] [phone] Leila Burt SURVEY QUESTIONNAIRE DESIGNER-DESTATICIZER FEEDER [address] [place] [phone] Health Maintenance Due Date Last Done Comments PNEUMOCOCCAL VACCINE (1 of 1 - PPSV23, PCV20, or PCV21) 2005 03/26/2001, 07/03/2000, 01/18/2000 COVID-19 VACCINE (2024-2 6 season) 2025 05/13/2021, 02/23/2021 INFLUENZA VACCINE (#1) 2025 , 04/10/2023, 06/05/2020, Additional history exists CHLAMYDIA/GONORRHEA SCREENING 04/07/2026, 12/24/2024, 11/19/2024, Additional history exists PAP SMEAR 12/02/2026 12/03/2023, 09/08/2022 DTAP/TDAP/TD VACCINES (8 - T d or Tdap) 02/19/2035 02/19/2025, 05/01/2013, 04/18/2005, Additional history exists ZOSTER VACCINE (1 of 2) 2049 HEPATITIS B VACCINE Completed 03/26/2001, 12/22/2000, 07/03/2000, Additional history exists HIB VACCINE Completed 03/26/2001, 12/10, 03/17/2000, Additional history exists HPV VACCINE Completed 05/01/2013, 08/22/2011 MENINGOCOCCAL GROUPS A/C/Y/W VACCINE Completed 04/19/2017, 08/22/2011, 08/22/2011 MENINGOCOCCAL (Group B) VACC INE SHARED DECISION-MAKING Completed 08/02/2017, 08/02/2017, 04/19/2017, Additional history exists HEPATITIS C SCREENING Completed 04/25/2024 HIV SCREENING Completed 02/19/2025 DEPRESSION SCREENING Completed 05/22/2025, 12/07/19 25 Medical Devices Explanted Type Area Parts Department Supervisor Device Identifier Shelf Expiration Date Model / Serial / Lot Wire K Ster .035 - Sn/A Explanted:Qty: 1 by Katty Storey MD at [facility] Right: Ankle [employer] [id number] / N/A / N/A Scrw [place] Sh Thrd 4.0mm X 42mm Explanted:Qty: 1 on 07/08/2013 at [facility] [employer] 2 / / Scrw [place] Sh Thrd 4.0mm X 40mm Explanted:Qty: 1 on 07/08/2013 at [facility] / / Gwire .078 X 9 - Sn/A Implanted:Qty: 1 on 07/08/2013 by Katty Storey MD at [facility] Explanted:Qty: 1 on 11/04/2013 at [facility] Right: Ankle [id number] / N/A / N/A Gwire [employer]utrak Plus Thrd .063 X 9 - Sn/A Implanted:Qty: 1 on 07/08/2013 by Katty Storey MD at [facility] Explanted:Qty: 1 on 11/04/2013 at [facility] Right: Ankle [id number] / N/A / N/A Procedures Procedure Name Priority Date/Time Associated Diagnosis Comments IMAGING/RADIOLOGY/XRA Y RESULTS ORDER 04/30/2025 7:43 PM CDT CBC W AUTO DIFFERENTIAL Timed 04/29/2025 4:20 PM CDT TRANSFUSE RED BLOOD CELL LEUKOREDUCED UNIT(S) Routine 04/29/2025 9:48 AM CDT CBC W/O DIFFERENTIAL AM Draw 04/29/2025 4:00 AM CDT TRANSFUSE RED BLOOD CELL LEUKOREDUCED UNIT(S) Routine 04/28/2025 11:20 AM CDT CBC W AUTO DIFFERENTIAL AM Draw 04/28/2025 9:56 AM CDT PREPARE RBC LEUKOREDUCED UNIT Routine 04/28/2025 7:04 AM CDT PREPARE RBC LEUKOREDUCED UNIT Routine 04/28/2025 7:04 AM CDT TYPE + SCREEN PANEL STAT 04/28/2025 7 :04 AM CDT PREPARE RBC LEUKOREDUCED UNIT Routine 04/28/2025 7:04 AM CDT CBC W/O DIFFERENTIAL AM Draw 04/28/2025 5:06 AM CDT CBC W/O DIFFERENTIAL AM Draw 04/27/2025 4:06 AM CDT BLOOD GASES CORD NATASHA (ISTAT) Routine 04/26/2025 9:26 PM CDT BLOOD GASES CORD ART (ISTAT) Routine 04/26/2025 9:22 PM CDT PATHOLOGY TISSUE EXAM ([facility]) Routine 04/26/2025 9:18 PM CDT Diagnosis unknown SECTION (EMERGENCY) 04/26/2025 8:41 PM CDT NEURAXIAL BLOCK Routine 04/26/2025 6:13 AM CDT PROTEIN CREATININE RATIO URINE RANDOM PNL Routine 04/26/2025 3:15 AM CDT COMPREHENSIVE METABOLIC PANEL Routine 04/26/2025 3:15 AM CDT CBC W AUTO DIFFERENTIAL Routine 04/26/2025 3:15 AM CDT NEURAXIAL BLOCK Routine 04/26/2025 1:22 AM CDT TYPE + SCREEN PANEL STAT 04/24/2025 8 :31 PM CDT COMPREHENSIVE METABOLIC PANEL STAT 04/24/2025 8:31 PM CDT SYPHILIS ANTIBODY CASCADING REFLEX STAT 04/24/2025 8:31 PM CDT CBC W AUTO DIFFERENTIAL STAT 04/24/2025 8:31 PM CDT IMAGING/RADIOLOGY/XRA Y RESULTS ORDER 04/23/2025 6:32 PM CDT COMPREHENSIVE METABOLIC PANEL Routine 04/22/2025 4:41 AM CDT Encounter for supervision of high risk due to anomaly, third trimester (HCC) CBC W AUTO DIFFERENTIAL Routine 04/22/2025 4:41 AM CDT Encounter for supervision of high risk due to anomaly, third trimester (HCC) NONSTRESS TEST Routine 04/21/2025 11:43 PM CDT TYPE + SCREEN PANEL STAT 04/21/2025 9 :28 PM CDT PROTEIN CREATININE RATIO URINE RANDOM PNL STAT 04/21/2025 6:26 PM CDT Chronic hypertension affecting (HCC) URINALYSIS REFLEX MICROSCOPIC REFLEX CULTURE STAT 04/21/2025 6:26 PM CDT Chronic hypertension affecting (HCC) COMPREHENSIVE METABOLIC PANEL STAT 04/21/2025 6:26 PM CDT Encounter for supervision of high risk due to anomaly, third trimester (HCC) CBC W AUTO DIFFERENTIAL STAT 04/21/2025 6:26 PM CDT Encounter for supervision of high risk due to anomaly, third trimester (HCC) URINALYSIS - POINT OF CARE (AMB) [facility] Routine 04/21/2025 3:28 PM CDT SVT (supraventricular tachycardia) (HCC) BIOPHYSICAL PROFILE W NST Routine 04/21/2025 3:00 PM CDT Obesity affecting in third trimester, unspecified obesity type (HCC) Mental disorder affecting in third trimester (HCC): Depression/Anxiety Chronic hypertension affecting (HCC) NONSTRESS TEST Routine 04/16/2025 4:00 AM CDT COMPREHENSIVE METABOLIC PANEL AM Draw 04/16/2025 4:00 AM CDT Chronic hypertension affecting (HCC) CBC W/O DIFFERENTIAL AM Draw 04/16/2025 4:00 AM CDT Chronic hypertension affecting (HCC) URINALYSIS REFLEX MICROSCOPIC REFLEX CULTURE STAT 04/15/2025 6:41 PM CDT Chronic hypertension affecting (HCC) PROTEIN CREATININE RATIO URINE RANDOM PNL STAT 04/15/2025 6:41 PM CDT Chronic hypertension affecting (HCC) TYPE + SCREEN PANEL STAT 04/15/2025 5 :34 PM CDT FERRITIN STAT 04/15/2025 5:34 PM CDT Anemia affecting in third trimester (HCC) URIC ACID BLOOD STAT 04/15/2025 5:34 PM CDT Chronic hypertension affecting (HCC) SYPHILIS ANTIBODY CASCADING REFLEX STAT 04/15/2025 5:34 PM CDT Chronic hypertension affecting (HCC) COMPREHENSIVE METABOLIC PANEL STAT 04/15/2025 5:34 PM CDT Chronic hypertension affecting (HCC) CBC W AUTO DIFFERENTIAL STAT 04/15/2025 5:34 PM CDT Chronic hypertension affecting (HCC) CULTURE STREP B Routine 04/15/2025 4:20 PM CDT Supervision of high risk in third trimester (HCC) URINALYSIS - POINT OF CARE (AMB) [facility] Routine 04/15/2025 4:02 PM CDT SVT (supraventricular tachycardia) (HCC) SONOGRAM - COMPLETE Routine 04/15/2025 3 :24 PM CDT SVT (supraventricular tachycardia) (HCC) Obesity affecting in third trimester, unspecified obesity type (HCC) Pre-diabetes Mental disorder affecting in third trimester (HCC): Depression/Anxiety Chronic hypertension affecting (HCC) URINALYSIS - POINT OF CARE (AMB) [facility] Routine 04/08/2025 3:16 PM CDT Supervision of high risk in third trimester (HCC) BIOPHYSICAL PROFILE W NST Routine 04/08/2025 3:02 PM CDT Obesity in (HCC) PROTEIN CREATININE RATIO URINE RANDOM PNL STAT 04/07/2025 12:36 PM CDT Hypertension affecting in third trimester (HCC) URINALYSIS REFLEX MICROSCOPIC REFLEX CULTURE STAT 04/07/2025 12:36 PM CDT Hypertension affecting in third trimester (HCC) COMPREHENSIVE METABOLIC PANEL STAT 04/07/2025 12:36 PM CDT Hypertension affecting in third trimester (HCC) CBC W AUTO DIFFERENTIAL Routine 04/07/2025 12:36 PM CDT Hypertension affecting in third trimester (HCC) TRICHOMONAS VAGINALIS BORIS Routine 04/07/2025 11:21 AM CDT Vaginal discharge CHLAMYDIA AND N. GONORRHOEAE BORIS Routine 04/07/2025 11:21 AM CDT Vaginal discharge URINALYSIS - POINT OF CARE (AMB) [facility] Routine 04/01/2025 3:44 PM CDT Supervision of high risk in third trimester (HCC) BIOPHYSICAL PROFILE W NST Routine 04/01/2025 3:25 PM CDT Obesity in (HCC) BIOPHYSICAL PROFILE W NST Routine 03/27/2025 3:09 PM CDT Obesity affecting in third trimester, unspecified obesity type (HCC) Mental disorder affecting in third trimester (HCC): Depression/Anxiety Chronic hypertension affecting (HCC) Supervision of high risk in third trimester (HCC) URINALYSIS - POINT OF CARE (AMB) [facility] Routine 03/27/2025 2:55 PM CDT Supervision of high risk in third trimester (HCC) IMAGING/RADIOLOGY/XRA Y RESULTS ORDER 03/25/2025 4:48 PM CDT US ABDOMEN LIMITED STAT 03/24/2025 8: 18 PM CDT Elevated blood pressure reading without diagnosis of hypertension PROTEIN CREATININE RATIO URINE RANDOM PNL STAT 03/24/2025 6:38 PM CDT Elevated blood pressure reading without diagnosis of hypertension URINALYSIS REFLEX MICROSCOPIC REFLEX CULTURE STAT 03/24/2025 6:38 PM CDT Elevated blood pressure reading without diagnosis of hypertension COMPREHENSIVE METABOLIC PANEL STAT 03/24/2025 6:38 PM CDT Elevated blood pressure reading without diagnosis of hypertension CBC W/O DIFFERENTIAL STAT 03/24/2025 6:38 PM CDT Elevated blood pressure reading without diagnosis of hypertension HIV-1 HIV-2 ANTIBODY + HIV P24 AG PANEL Routine 02/19/2025 1:03 PM CDT High-risk , second trimester (HCC) PAP 2 OR MORE SLIDES Routine 12/03/2023 12:00 AM CDT from Last 3 Months or Most Recently Relevant to Health Maintenance Results * IMAGING/RADIOLOGY/XRAY RESULTS ORDER (04/30/2025 7:43 PM CDT) Only the most recent of3 resultswithin the time period is included. Anatomical Region Laterality Modality Other Narrative 04/30/2025 7:43 PM CDT Ordered by an unspecified provider. us Scanned Document IMAGING Final Result * (ABNORMAL) CBC W AUTO DIFFERENTIAL (04/29/2025 4:20 PM CDT) Only the most recent of8 resultswithin the time period is included. WBC 13.0(H) 4.0 - 10.7 x10E9/L 04/29/2025 5:15 PM CDT [facility] RBC Count 3.58(L) 3.90 - 5.20 x10E12/L 04/29/2025 5:15 PM CDT [facility] Hemoglobin 8.9(L) 11.9 - 15.8 g/dL 04/29/2025 5:15 PM CDT [facility] Hematocrit 28.5(L) 34.8 - 46.1 % 04/29/2025 5:15 PM CDT [facility] MCV 79.6(L) 80.0 - 98.0 fL 04/29/2025 5:15 PM CDT [facility] MCH 24.9(L) 26.7 - 33.6 pg 04/29/2025 5:15 PM CDT [facility] MCHC 31.2(L) 31.7 - 36.3 g/dL 04/29/2025 5:15 PM CDT [facility] RDW-CV 17.4(H) 11.3 - 14.8 % 04/29/2025 5:15 PM CDT [facility] Platelet Count 281 150 - 420 x10E9/L 04/29/2025 5:15 PM CDT [facility] MPV 13.2(H) 7.8 - 11.4 fL 04/29/2025 5:15 PM CDT [facility] Neutrophil % 71.1 41.0 - 74.0 % 04/29/2025 5:15 PM CDT [facility] Lymphocyte % 19.8 17.0 - 47.0 % 04/29/2025 5:15 PM CDT [facility] Monocyte % 6.1 3.0 - 11.0 % 04/29/2025 5:15 PM CDT [facility] Eosinophil % 2.2 0.0 - 7.0 % 04/29/2025 5:15 PM CDT [facility] Basophil % 0.1 0.0 - 1.6 % 04/29/2025 5:15 PM CDT [facility] Immature Granulocytes % 0.7 0.0 - 1.0 % 04/29/2025 5:15 PM CDT [facility] Neutrophil Absolute 9.27(H) 1.60 - 7.50 x10E9/L 04/29/2025 5:15 PM CDT [facility] Lymphocyte Absolute 2.58 1.00 - 4.40 x10E9/L 04/29/2025 5:15 PM CDT [facility] Monocyte Absolute 0.79 0.15 - 1.00 x10E9/L 04/29/2025 5:15 PM CDT [facility] Eosinophil Absolute 0.29 0.00 - 0.60 x10E9/L 04/29/2025 5:15 PM CDT [facility] Basophil Absolute 0.01 0.00 - 0.13 x10E9/L 04/29/2025 5:15 PM CDT [facility] Blood BLOOD SPECIMEN / Unknown Lab Venipuncture / Unknown 04/29/2025 4:20 PM CDT 04/29/2025 5:03 PM CDT us Meghann Chamorro MD LAB - HEMATOLOGY ORDERABLES Fin al Result [facility] [address] [place] [address] * TRANSFUSE RED BLOOD CELL LEUKOREDUCED UNIT(S) (04/29/2025 1:49 PM CDT) us Meghann Chamorro MD NURSING - BLOOD PROD TRANSFUSIO N Edited Result - Final * (ABNORMAL) CBC W/O DIFFERENTIAL (04/29/2025 4:00 AM CDT) Only the most recent of5 resultswithin the time period is included. WBC 10.8(H) 4.0 - 10.7 x10E9/L 04/29/2025 4:46 AM CDT [facility] RBC Count 2.97(L) 3.90 - 5.20 x10E12/L 04/29/2025 4:46 AM CDT [facility] Hemoglobin 7.2(L) 11.9 - 15.8 g/dL 04/29/2025 4:46 AM CDT [facility] Hematocrit 23.6(L) 34.8 - 46.1 % 04/29/2025 4:46 AM CDT [facility] MCV 79.5(L) 80.0 - 98.0 fL 04/29/2025 4:46 AM CDT [facility] MCH 24.2(L) 26.7 - 33.6 pg 04/29/2025 4:46 AM CDT [facility] MCHC 30.5(L) 31.7 - 36.3 g/dL 04/29/2025 4:46 AM CDT [facility] RDW-CV 17.1(H) 11.3 - 14.8 % 04/29/2025 4:46 AM CDT [facility] Platelet Count 245 150 - 420 x10E9/L 04/29/2025 4:46 AM CDT [facility] MPV 13.0(H) 7.8 - 11.4 fL 04/29/2025 4:46 AM CDT [facility] Blood BLOOD SPECIMEN / Unknown Lab Venipuncture / Unknown 04/29/2025 4:00 AM CDT 04/29/2025 4:20 AM CDT Meghann Chamorro MD LAB - HEMATOLOGY ORDERABLES Fin al Result [facility] [address] [place] [address] * TRANSFUSE RED BLOOD CELL LEUKOREDUCED UNIT(S) (04/28/2025 1:54 PM CDT) us Meghann Chamorro MD NURSING - BLOOD PROD TRANSFUSIO N Final Result * PREPARE (CROSSMATCH) RBC UNIT(S), 1 Units (04/28/2025 7:04 AM CDT) Only the most recent of3 resultswithin the time period is included. Unit Description AS1 LR PRBC [facility] Unit ABO A [facility] Unit Rh NEG [facility] Product [facility] R02 [facility] Unit Donor # [id number] [facility] B[facility] Unit Status released [facility] Product Code [id number] [facility] Blood Type Barcode 599 [facility] Expiration Date [id number] [facility] Blood Bank BLOOD SPECIMEN / Unknown 04/28/2025 7:04 AM CDT 04/28/2025 7:06 AM CDT us Meghann Chamorro MD LAB - BLOOD BANK ORDERABLES Fin al Result Performing Organization Address City/[facility]/ZIP Co de Phone Number [facility] [address] [place] [address] * TYPE + SCREEN PANEL (04/28/2025 7:04 AM CDT) Only the most recent of4 resultswithin the time period is included. ABO Rh A POS 04/28/2025 7:39 AM CDT [facility] Comment:History checked. Antibody Screen NEG 7:39 AM CDT [facility] Blood Bank BLOOD SPECIMEN / Unknown Lab Venipuncture / Unknown 04/28/2025 7:04 AM CDT 04/28/2025 7:06 AM CDT us Meghann Chamorro MD LAB - BLOOD BANK ORDERABLES Fin al Result [facility] [address] [place] [address] * (ABNORMAL) BLOOD GASES CORD NATASHA (ISTAT) (04/26/2025 9:26 PM CDT) pH Cord Venous POCT 7.17(L) 7.28 - 7.40 pH 04/26/2025 9:35 PM CDT [facility] pCO2 Cord Venous POCT 53.2(H) 35 - 45 mm hg 04/26/2025 9:35 PM CDT [facility] pO2 Cord Venous POCT 18(L) 22 - 33 mm hg 04/26/2025 9:35 PM CDT [facility] HCO3 Cord Arterial POCT 19.5(L) 22 - 24 mmol/L 04/26/2025 9:35 PM CDT [facility] BE Cord Venous POCT Calc -10(L) -6.4 - 1.6 mmol/L 04/26/2025 9:35 PM CDT [facility] TCO2 Cord Venous POCT 21(L) 22 - 30 mmol/L 04/26/2025 9:35 PM CDT [facility] O2 Saturation % Cord Venous Calc POCT 18 % 04/26/2025 9:35 PM CDT [facility] Site CORD NATASHA 04/26/2025 9:35 PM CDT [facility] Sample iSTAT CORD NATASHA 04/26/2025 9:35 PM CDT [facility] Blood CORD BLOOD SPECIMEN / Unknown 04/26/2025 9:26 PM CDT 04/26/2025 9:35 PM CDT Meghann Chamorro MD LAB - POINT OF CARE ORDERABLES Final Result [facility] [address] [place] [address] * (ABNORMAL) BLOOD GASES CORD ART (ISTAT) (04/26/2025 9:22 PM CDT) pH Cord Arterial POCT 7.08(L) 7.20 - 7.34 pH 04/26/2025 9:35 PM CDT [facility] pCO2 Cord Arterial POCT 70.1(HH) 45 - 55 mm hg 04/26/2025 9:35 PM CDT [facility] pO2 Cord Arterial POCT <15 12 - 25 mm hg 04/26/2025 9:35 PM CDT [facility] HCO3 Cord Arterial POCT 20.9(L) 22 - 24 mmol/L 04/26/2025 9:35 PM CDT [facility] BE Cord Arterial POCT -11(L) -2.9 - 8.3 mmol/L 04/26/2025 9:35 PM CDT [facility] TCO2 Cord Arterial POCT 23 mmol/L 04/26/2025 9:35 PM CDT [facility] O2 Saturation Cord Art % Calc POCT 9 % 04/26/2025 9:35 PM CDT [facility] Site CORD ART 04/26/2025 9:35 PM CDT [facility] Sample iSTAT CORD ART 04/26/2025 9:35 PM CDT [facility] Blood CORD BLOOD SPECIMEN / Unknown 04/26/2025 9:22 PM CDT 04/26/2025 9:35 PM CDT Meghann Chamorro MD LAB - POINT OF CARE ORDERABLES Final Result [facility] [address], [place] [id number] * PATHOLOGY TISSUE EXAM (STL) (04/26/2025 9:18 PM CDT) Case Report Surgical Pathology Report Case: [id number] Authorizing Provider: Yogesh, Jailyn Bhatt MD Collected: 04/26/2025 09:18 PM Ordering Location: [facility] 5 LDR Received: 04/28/2025 08:06 AM Pathologist: Collin Espana MD Specimen: Placenta 04/29/2025 1:42 PM CDT [facility] Final Diagnosis Placenta, section: - Small (284-gram) francois placenta (see comment) - Mild acute chorionitis (maternal inflammatory response stage 1, grade 1) - Three-vessel umbilical cord with no histopathologic abnormality - Mature-appearing chorionic villi Comment: The placental weight is below the 10th percentile for a 37-week gestation. Reference: Marbella Hernandez et al. Reference values for francois and twin placental weights. Pediatr Pathol Lab Med 1996:16:903. 04/29/2025 1:42 PM [facility] at 1342 CDT Clinical History 24-year-old G1 at 37w1d. 04/29/2025 1:42 PM T [facility] Gross Description The specimen is identified with the patient's name and date of . Received fresh and placed in formalin, specimen A, placenta is a placental disc (19 x 14.5 x 2.1 cm and 284 grams trimmed) with attached umbilical cord and membranes. The umbilical cord (15.2 cm long and 15.5 cm diameter) is inserted paramarginally, 1.2 cm from placental disc edge, with partially attached membranes, 5.5 cm from the site of insertion. The membranes insert marginally and are pink-herrera, translucent. The surface is blue-herrera with normal vasculature. The maternal surface is disrupted, but appears complete, with eccentric areas yellow-white thickening/calcificat ions, 5% of the maternal surface. Sectioning shows red-brown, spongy cut surfaces. Computed Tomography Scanner Operator sections submitted as follows: A1 - umbilical cord and membrane roll, A2-A3 - placenta, A4 - maternal surface yellow-white thickening. /LJ 04/29/2025 1:42 PM T [facility] Microscopic Description Microscopic examination substantiates the diagnosis above. 04/29/2025 1:42 PM [facility] Pathologist Location at [facility] 04/29/2025 1:42 PM [facility] Disclaimer All histochemical and/or immunohistochemical results are interpreted with controls that demonstrate appropriate staining reactions before reporting results. Note on use of immunocytochemistry reagents: This test was developed and its performance characteristic determined by [facility], Department of Laboratory Medicine. It has not been cleared or approved by the U.S. Food and Drug Administration (FDA). The FDA has determined that such clearance or approval is not necessary. The test is used for clinical purpose. It should not be regarded as investigational or for research. This laboratory is certified to perform high complexity testing. The performance characteristics of the IHC/DASHAWN assays have been validated on formalin-fixed paraffin embedded tissues only. The assays have not been validated on decalcified tissues. Results should be interpreted with caution. 04/29/2025 1:42 PM CDT [facility] Embedded Images 04/29/2025 1:42 PM CDT [facility] Pathology/Cytolo gy ENTIRE PLACENTA / Unknown 04/26/2025 9:18 PM CDT 04/28/2025 8:06 AM CDT Jailyn Zuñiga MD LAB - PATHOLOGY/CYTOLOGY ORDER ANIVAL Final Result Performing Organization Address City/State/[facility] Co de Phone Number [facility] [address] [place] [address] * EPIDURAL BLOCK PERF (04/26/2025 6:13 AM CDT) Narrative German Cortez APRN-CRNA - 04/26/2025 6:13 AM CDT German Cortez APRN-CRNA 04/26/2025 6:13 AM Neuraxial Block Note Pre-Procedure: Procedure Name: Neuraxial Block Patient Location: OB Indications: at patient's request Pre-Anesthetic Checklist: Patient identified, IV Checked, Risks and benefits discussed, Surgical consent verified, Monitors and equipment, Site examined, Pre-op evaluation done, Time-out performed, Informed consent obtained, Questions answered/anesthesia questions answered and Allergies reviewed Anticoagulation/ Anti-thrombosis status confirmed? Yes Supplemental O2: room air Monitors: BP and continuous pluse ox Patient Condition: awake Patient Sedated? No Procedure: Block Type: Epidural Prep: Betadine Sterile Field: mask, cap/hat, sterile established and sterile gloves Approach: midline Skin was localized? Yes Epidural Block: Is this procedure for postop pain? No Needle Type: Tuohy Needle gauge: 18 G Needle length: 152 mm Placement Site: L3-L4 Number of Attempts: 1 Loss of Resistance: 10 saline Catheter threaded to (cm): 20 Catheter length at skin (cm): 15 CSF Aspirated from catheter: No Blood Aspirated: No Test Dose Response: No Degree of difficulty: none Procedure Tolerance: tolerated well Sensory Level: other - please comment Motor Blockade: No Position post procedure: supine Vital Signs: Vital signs moniitored and stable throughout. See nursing vitals flowsheet for details. Staff: Anesthesia Provider: German Cortez APRN-CRNA - performed the procedure Thaddeus Finley MD GENERAL ANESTHESIA ORDERABLE S Final Result * (ABNORMAL) COMPREHENSIVE METABOLIC PANEL (04/26/2025 3:15 AM CDT) Only the most recent of8 resultswithin the time period is included. Glucose 84 70 - 99 mg/dL 04/26/2025 3:43 AM CDT [facility] Sodium 138 136 - 145 mmol/L 04/26/2025 3:43 AM CDT [facility] Potassium 4.0 3.5 - 5.1 mmol/L 04/26/2025 3:43 AM CDT [facility] Chloride 111(H) 98 - 107 mmol/L 04/26/2025 3:43 AM CDT [facility] CO2 18(L) 22 - 29 mmol/L 04/26/2025 3:43 AM CDT [facility] Calcium 8.8 8.4 - 10.4 mg/dL 04/26/2025 3:43 AM CDT [facility] Anion Gap 9 6 - 16 mmol/L 04/26/2025 3:43 AM CDT [facility] BUN 8 5.3 - 18.7 mg/dL 04/26/2025 3:43 AM CDT [facility] Creatinine 0.72 0.57 - 1.11 mg/dL 04/26/2025 3:43 AM CDT [facility] Alkaline Phosphatase 174(H) 40 - 150 U/L 04/26/2025 3:43 AM CDT [facility] ALT 7 6 - 57 U/L 04/26/2025 3:43 AM CDT [facility] AST 19 10 - 48 U/L 04/26/2025 3:43 AM CDT [facility] Protein Total 6.5 6.4 - 8.3 gm/dL 04/26/2025 3:43 AM CDT [facility] Albumin 2.6(L) 3.1 - 4.5 gm/dL 04/26/2025 3:43 AM CDT [facility] Bilirubin Total 0.2 0.2 - 1.2 mg/dL 04/26/2025 3:43 AM CDT [facility] eGFR by CKD-EPI >90 >=90 mL/min/1.7 3 m2 04/26/2025 3:43 AM CDT [facility] Comment:Estimated Glomerular Filtration Rate (eGFR) calculated using the CKD-EPI Creatinine Equation (2020), per the National Kidney Foundation and [place] [employer]ph[employer] recommendations. Blood BLOOD SPECIMEN / Unknown Venipuncture / Unknown 04/26/2025 3:15 AM CDT 04/26/2025 3:21 AM CDT us Meghann Chamorro MD LAB - CHEMISTRY ORDERABLES Frances l Result Performing Organization Address [facility] [place]/[facility] de Phone Number [facility] [address] [place] [id number] * PROTEIN CREATININE RATIO URINE RANDOM PNL (04/26/2025 3:15 AM CDT) Only the most recent of5 resultswithin the time period is included. Pathologist [facility] Protein Urine 7.0 <11.9 mg/dL 04/26/2025 3:43 AM CDT [facility] Creatinine Urine 69.63 mg/dL 04/26/2025 3:43 AM CDT [facility] Protein/Creatin ine Ratio Urine 0.10 04/26/2025 3:43 AM CDT [facility] Urine URINE SPECIMEN OBTAINED BY CLEAN CATCH PROCEDURE / Unknown Collection / Unknown 04/26/2025 3:15 AM CDT 04/26/2025 3:21 AM CDT us Meghann Chamorro MD LAB - URINE CHEMISTRY ORDERABLE S Final Result Performing Organization Address [facility] de Phone Number [facility] [address] [place] [address] * EPIDURAL BLOCK PERF (04/26/2025 1:22 AM CDT) Narrative German Cortez APRN-SHIP RUNNER - 04/26/2025 1:22 AM CDT German Cortez APRN-CRNA 04/26/2025 6:13 AM Neuraxial Block Note Pre-Procedure: Procedure Name: Neuraxial Block Patient Location: OB Indications: at patient's request Pre-Anesthetic Checklist: Patient identified, IV Checked, Risks and benefits discussed, Surgical consent verified, Monitors and equipment, Site examined, Pre-op evaluation done, Time-out performed, Informed consent obtained, Questions answered/anesthesia questions answered and Allergies reviewed Anticoagulation/ Anti-thrombosis status confirmed? Yes Supplemental O2: room air Monitors: BP and continuous pluse ox Patient Condition: awake Patient Sedated? No Procedure: Block Type: Epidural Prep: Betadine Sterile Field: mask, cap/hat, sterile established and sterile gloves Approach: midline Skin was localized? Yes Epidural Block: Is this procedure for postop pain? No Needle Type: Tuohy Needle gauge: 18 G Needle length: 90 mm Placement Site: L3-L4 Number of Attempts: 1 Loss of Resistance: 13 saline Catheter threaded to (cm): 24 Catheter length at skin (cm): 19 CSF Aspirated from catheter: No Blood Aspirated: No Test Dose Response: No Degree of difficulty: none Procedure Tolerance: tolerated well Sensory Level: other - please comment Motor Blockade: No Position post procedure: supine Vital Signs: Vital signs moniitored and stable throughout. See nursing vitals flowsheet for details. Staff: Anesthesia Provider: German Cortez APRN-SHIP RUNNER - performed the procedure Thaddeus Finley MD GENERAL ANESTHESIA ORDERABLE S Edited Result - Final * SYPHILIS ANTIBODY CASCADING REFLEX (04/24/2025 8:31 PM CDT) Only the most recent of2 resultswithin the time period is included. Treponema pallidum Antibody Non Reactive Non Reactive 04/24/2025 9:19 PM CDT [facility] Comment: No Laboratory evidence of syphilis infection. Note: Circulating antibodies may be low or undetectable in early infection. If recent exposure is suspected, re-draw sample in 2-4 weeks and repeat testing. Blood BLOOD SPECIMEN / Unknown Venipuncture / Unknown 04/24/2025 8:31 PM CDT 04/24/2025 8:39 PM CDT Meghann Chamorro MD LAB - SEROLOGY ORDERABLES Final Result [facility] [address] [place] [address] * NONSTRESS TEST (04/21/2025 11:43 PM CDT) Narrative Jailyn Zuñiga MD - 04/21/2025 11:43 PM CDT Jailyn Zuñiga MD 04/23/2025 6:21 PM Non-Stress Test Interpretation Note: Date: 04/21/2025 Time period evaluated: 2140 - 2335 Gestational Age: 36w3d Indication(s): Chronic hypertension Baseline: 130 bpm, baseline change to 110 bpm at end of strip Variability: Moderate Accels: Present Decels: None Contractions: Absent Interpretation: Reactive and reassuring Plan: Appropriate to remove from NST Zohra Rodrigues MD I have reviewed this NST which is reactive with moderate [id number] variability & normal FHR baseline & no clinically significant heart rate decelerations. I have reviewed this heart rate tracing and agree with the documented interpretation. Jailyn Zuñiga MD Maternal- Medicine [facility] us Tremayne Awad MD OB GYNE ORDERABLES Edited Resu lt - Final * (ABNORMAL) URINALYSIS REFLEX MICROSCOPIC REFLEX CULTURE (04/21/2025 6:26 PM CDT) Only the most recent of4 resultswithin the time period is included. Color UA Yellow Yellow, Straw 04/21/2025 6:58 PM CDT [facility] Clarity UA Turbid(A) Clear 04/21/2025 6:58 PM CDT [facility] Glucose UA Normal Normal 04/21/2025 6:58 PM CDT [facility] Bilirubin UA Negative Negative 04/21/2025 6:58 PM CDT [facility] Ketone UA Negative Negative 04/21/2025 6:58 PM CDT [facility] Specific [place] UA 1.019 1.005 - 1.030 04/21/2025 6:58 PM CDT [facility] Blood UA Negative Negative 04/21/2025 6:58 PM CDT [facility] pH UA 5.5 5.0 - 8.0 04/21/2025 6:58 PM CDT [facility] Protein UA Negative Negative 04/21/2025 6:58 PM CDT [facility] Urobilinogen UA Normal Normal mg/dL 04/21/2025 6:58 PM CDT [facility] Nitrite UA Negative Negative 04/21/2025 6:58 PM CDT [facility] Leukocyte Esterase UA Negative Negative 04/21/2025 6:58 PM CDT [facility] RBC UA 6-10(A) 0 - 5 # /hpf 04/21/2025 6:58 PM CDT [facility] WBC UA 6-10(A) 0 - 5 # /hpf 04/21/2025 6:58 PM CDT [facility] Bacteria UA 1+(A) None Seen 04/21/2025 6:58 PM CDT [facility] Squamous Epithelial Cells 11-20(A) 0 - 5 /hpf 04/21/2025 6:58 PM CDT [facility] Mucus UA 4+ /LPF 04/21/2025 6:58 PM CDT [facility] Reflex Status Culture not indicated 04/21/2025 6:58 PM CDT [facility] Urine Microscopy Urine microscopy not indicated 04/21/2025 6:58 PM CDT [facility] Urine URINE SPECIMEN OBTAINED BY CLEAN CATCH PROCEDURE / Unknown Collection / Unknown 04/21/2025 6:26 PM CDT 04/21/2025 6:32 PM CDT Narrative [facility] - 04/21/2025 6:58 PM CDT Jailyn Zuñiga MD LAB - URINALYSIS ORDERABLES Fi nal Result [facility] [address] [place] [address] * URINALYSIS - POINT OF CARE (AMB) [facility] (04/21/2025 3:28 PM CDT) Only the most recent of5 resultswithin the time period is included. Specific [place] UA 1.[address] [facility] [address] pH UA [address] [facility] [address] WBC UA neg [facility] [address] Nitrite UA neg [facility] [address] Protein UA trace [facility] [address] Glucose UA normal [facility] [address] Ketones UA POCT neg [facility] [address] Urobilinogen UA normal [facility] [address] Bilirubin UA POCT neg [facility] [address] Blood Urine POCT neg [facility] [address] Urine URINE / Unknown 04/21/2025 3 :28 PM CDT Rufino Platt MD LAB - POINT OF CARE ORDERABLES Final Result MARCUS [address] [place] [address], [facility] [phone] * BIOPHYSICAL PROFILE W NST (04/21/2025 3:00 PM CDT) Only the most recent of4 resultswithin the time period is included. Linked Results Indication ======== Obesity complicating , Class 3 - BMI of 40.0 or greater Chronic hypertension (CHTN) complicating Asthma complicating Poor growth (FGR) History ====== OB History 1. Para 0 Lab Tests Test Date Result NIPT Low risk, Male Maternal Assessment Physical Exam Height 163 cm, 5 ft 4 in. Weight 137 kg, 303 lb. Initial weight 135 kg, 298 lb. BMI 52.01 kg/m . Initial BMI 51.15 kg/m . Weight gain 2 kg, 5 lb Method ====== Transabdominal ultrasound. View: limited by body habitus ========= Francois . Number of fetuses: 1 Dating ====== Date Details Gest. age ALBIN Stated ALBIN 36 w + 3 d 05/16/2025 Previous U/S 09/24/2024 GA, GA 6 w + 4 d 36 w + 3 d 05/16/2025 Assigned dating based on ultrasound (GA), selected on 11/08/2024 36 w + 3 d 05/16/2025 General Evaluation Cardiac activity present. FHR 129 bpm. movements: visualized. Presentation: vertex Placenta: Placental site: posterior Umbilical cord: Cord vessels: 3 vessel cord - previously documented. Insertion site: normal insertion - previously documented Amniotic fluid: Amount of AF: normal. MVP 3.6 cm. LUCIANA 9.0 cm. Q1 0.0 cm, Q2 3.6 cm, Q3 2.7 cm, Q4 2.7 cm Biophysical Profile 2: breathing movements 2: Gross body movements 2: tone 2: Amniotic fluid volume NST: reactive 10/10 Biophysical profile score Non Stress Test NST interpretation: reactive Anatomy The following structures appear normal: Abdomen Stomach. Kidneys. Bladder. sex: male. Doppler Umbilical Artery: abnormal, elevated. Sampling site: midcord. EDF positive PI 1.34 >99% Stephy S / D 4.01 >99% Stephy Left Mid Cerebral Artery: normal PI 1.53 16% Ebbing RI 0.78 72% Bahlmann PS 62.53 cm/s ED 13.82 cm/s TAmax 31.86 cm/s 88% Ebbing MD 13.21 cm/s S / D 4.52 Impression ========= Single, live, intrauterine at 36w3d The amniotic fluid volume is normal The biophysical profile is 10/10 The umbilical artery Dopplers is abnormal, mildly elevated S:D ratio, and PI below the 5th percentile The MCA Doppler is WNL Comment ======== ultrasound alone cannot detect all structural, genetic, or functional , placental, or maternal abnormalities Follow-up ======== Plan to deliver between now and 37 weeks Patient being sent in now given DEL ANGEL and elevated BPs Coding ====== Diagnoses O99.513, J45.909: Diseases of the respiratory system complicating , Asthma O10.013, I10: Pre-existing essential hypertension complicating , Essential (primary) hypertension O99.213, E66.813: Obesity complicating , Class 3 - BMI of 40.0 or greater O36.5130: Maternal care for known or suspected placental insufficiency Procedures 47308: US Uterus Limited 02519: Biophysical Profile W NST 08031: Umbilical Doppler 58545: MCA Doppler [facility] Anatomical Region Laterality Modality Other 04/21/2025 3:00 PM CDT Rufino Platt MD [facility] ORDERABLES Edited Result - Final * NONSTRESS TEST (04/16/2025 4:00 AM CDT) Narrative Meghann Chamorro MD - 04/16/2025 4:00 AM CDT Meghann Chamorro MD 04/20/2025 5:21 PM Non-Stress Test Interpretation Note: Date: 04/16/2025 Time period evaluated: 1704 - 429 Gestational Age: 35w5d Indication(s): Chronic hypertension Baseline: 120-130 bpm Variability: Moderate Accels: Present Decels: None Contractions: Absent Interpretation: Reactive and reassuring Plan: Continue cEFM Zohra Rodrigues MD Chayito Awad MD OB GYNE ORDERAB LES Final Result * URIC ACID BLOOD (04/15/2025 5:34 PM CDT) Uric Acid 5.2 2.5 - 6.2 mg/dL 04/15/2025 6:29 PM CDT [facility] Blood BLOOD SPECIMEN / Unknown Venipuncture / Unknown 04/15/2025 5:34 PM CDT 04/15/2025 6:10 PM CDT Meghann Chamorro MD LAB - CHEMISTRY ORDERABLES Frances l Result [facility] [address] [place] [address] * FERRITIN (04/15/2025 5:34 PM CDT) Ferritin 12 5 - 204 ng/mL 04/15/2025 6:55 PM CDT [facility] Blood BLOOD SPECIMEN / Unknown Venipuncture / Unknown 04/15/2025 5:34 PM CDT 04/15/2025 6:10 PM CDT Meghann Chamorro MD LAB - CHEMISTRY ORDERABLES Frances l Result Performing Organization Address [facility] Co de Phone Number [facility] [address] [place] [address] * CULTURE STREP B (04/15/2025 4:20 PM CDT) Culture [facility] Comment: STREPTOCOCCUS, GROUP B CULTURE Micro Number: [id number] Test Status: Final Specimen Source: Anorectum/vagina Specimen Quality: Adequate Result: No group B Streptococcus isolated Note per CDC guidelines optimal recovery is achieved by swabbing both the lower vagina and rectum (through the anal sphincter). Test Performed at: [facility] [address] KENJI ZURITA MD Microbiology MISCELLANEOUS SAMPLES / Unknown 04/15/2025 4:20 PM CDT 04/16/2025 1:07 AM CDT Ольга Jamshid [facility] LAB - MICROBIOLOGY ORD ERABLES Final Result Performing Organization Address [facility] Co de Phone Number [facility] [phone] [place] [phone] * SONOGRAM - COMPLETE (04/15/2025 3:24 PM CDT) Linked Results Indication ======== Obesity complicating , Class 3 - BMI of 40.0 or greater Chronic hypertension (CHTN) complicating Asthma complicating Poor growth (FGR) History ====== OB History 1. Para 0 Lab Tests Test Date Result NIPT Low risk, Male Maternal Assessment Physical Exam Height 163 cm, 5 ft 4 in. Weight 137 kg, 303 lb. Initial weight 135 kg, 298 lb. BMI 52.01 kg/m . Initial BMI 51.15 kg/m . Weight gain 2 kg, 5 lb Method ====== Transabdominal ultrasound. View: limited by body habitus ========= Francois . Number of fetuses: 1 Dating ====== Date Details Gest. age ALBIN Stated ALBIN 35 w + 4 d 05/16/2025 Previous U/S 09/24/2024 GA, GA 6 w + 4 d 35 w + 4 d 05/16/2025 U/S 04/15/2025 based upon AC, BPD, Femur, HC 33 w + 5 d 05/29/2025 Assigned dating based on ultrasound (GA), selected on 11/08/2024 35 w + 4 d 05/16/2025 General Evaluation Cardiac activity present. FHR 150 bpm. movements: visualized. Presentation: vertex Placenta: Placental site: posterior Umbilical cord: Cord vessels: 3 vessel cord - previously documented. Insertion site: normal insertion - previously documented Amniotic fluid: Amount of AF: normal. MVP 3.7 cm. LUCIANA 10.0 cm. Q1 3.1 cm, Q2 1.6 cm, Q3 1.6 cm, Q4 3.7 cm Biometry BPD 80.7 mm 32w 3d 1% Hadlock HC 312.3 mm 35w 0d 9% Hadlock AC 301.1 mm 34w 1d 18% Hadlock Femur 64.0 mm 33w 0d 3% Hadlock Humerus 52.8 mm 30w 5d <1% Rubio HC / AC 1.04 Weight Calculation: EFW 2,260 g 10% Hadlock EFW (lb,oz) 5 lb 0 oz EFW by Hadlock ([id number]) Growth Overview Exam date GA BPD (mm) HC (mm) AC (mm) FL (mm) HL (mm) EFW (g) 12/24/2024 19w 4d 45.9 63% 166.9 33% 140.5 40% 30.6 39% 28.7 43% 294 38% 01/21/2025 23w 4d 58.6 60% 215 32% 191.3 51% 41.9 40% 36.4 15% 626 50% 02/19/2025 27w 5d 68.6 34% 254.8 20% 236.2 49% 49.2 10% 45.2 18% 1073 27% 03/27/2025 32w 6d 76.4 3% 297.4 16% 273.8 14% 58.7 3% 52 6% 1736 8% 04/15/2025 35w 4d 80.7 1% 312.3 9% 301.1 18% 64 3% 52.8 <1% 2260 10% Anatomy The following structures appear normal: Abdomen Stomach. Kidneys. Bladder. sex: male. Biophysical Profile 2: breathing movements 2: Gross body movements 2: tone 2: Amniotic fluid volume NST: reactive 06/20 Biophysical profile score Non Stress Test NST interpretation: reactive. Test duration 45 min. Baseline FHR 145 bpm. Baseline variability: moderate. Accelerations: present. Decelerations: absent. Uterine activity: absent Broken portions of the tracing, but additively ~20 minutes of reassuring tracing was obtained Doppler Umbilical Artery: normal. Sampling site: midcord. EDF positive PI 1.12 92% Stephy S / D 3.31 90% Stephy VTI 12.22 cm Left Mid Cerebral Artery: normal PI 1.81 37% Ebbing RI 0.82 84% Bahlmann PS 63.34 cm/s ED 11.14 cm/s TAmax 28.81 cm/s 82% Ebbing MD 10.88 cm/s S / D 5.69 VTI 12.01 cm HR 144 bpm Impression ========= Single, live intrauterine at 35w 4d size remains SGA, on what appears to be the established growth trajectory and adequate interval growth and AC preserved at the 18% The amniotic fluid volume is normal Normal UA and MCA Doppler studies Reassuring testing, 06/20 BPP Comment ======== ultrasound alone cannot detect all structural, genetic, or functional , placental, or maternal abnormalities. Follow-up ======== Continue weekly testing with BPPs/NSTs and Doppler studies. Coding ====== Diagnoses O99.513, J45.909: Diseases of the respiratory system complicating , Asthma O10.013, I10: Pre-existing essential hypertension complicating , Essential (primary) hypertension O99.213, E66.813: Obesity complicating , Class 3 - BMI of 40.0 or greater O36.5130: Maternal care for known or suspected placental insufficiency Procedures 83567: [place] [address]: Biophysical Profile W NST 89164: Umbilical Doppler 87515: MCA Doppler [facility] Anatomical Region Laterality Modality Other 04/15/2025 3:24 PM CDT Chayito Awad MD [facility] ORDERABLES Edited Result - Final * TRICHOMONAS VAGINALIS BORIS (04/07/2025 11:21 AM CDT) Trichomonas by BORIS NEGATIVE NEGATIVE 04/08/2025 6:[address] [facility]CRO[facility] Microbiology ENTIRE VAGINA / Unknown Collection / Unknown 04/07/2025 11:21 AM CDT 04/07/2025 11:[address] [facility]CRO[facility] - 04/08/2025 6:00 AM CDT This test performed by Qualitative real-time Polymerase Chain Reaction (PCR). Chayito Awad MD LAB - MICROBIOL OGY ORDERABLES Final Result [facility] [address] [place] [address], [facility] [phone] * CHLAMYDIA AND N. GONORRHOEAE BORIS (04/07/2025 11:21 AM CDT) Chlamydia by BORIS NEGATIVE NEGATIVE 04/08/2025 6:[address] [facility] Neisseria gonorrhoeae BORIS NEGATIVE NEGATIVE 04/08/2025 6:[address] [facility] Microbiology ENTIRE VAGINA / Unknown Collection / Unknown 04/07/2025 11:21 AM CDT 04/07/2025 11:[address] [facility] - 04/08/2025 6:00 AM CDT This test performed by Qualitative real-time Polymerase Chain Reaction (PCR). Chayito Awad MD LAB - MICROBIOL OGY ORDERABLES Final Result [facility] [address] [place] [address], [facility] [phone] * US Abdomen Limited (03/24/2025 8:18 PM CDT) Anatomical Region Laterality Modality Abdomen Ultrasound 03/24/2025 8:27 PM CDT Impressions 03/24/2025 8:29 PM CDT IMPRESSION: Fatty infiltration of the liver with mild hepatomegaly. Sludge and stones in the gallbladder. Patient was not tender over the gallbladder. > Interpreting Provider: Wellington Hurd MD on 03/24/2025 8:29 PM Narrative 03/24/2025 8:29 PM CDT Procedure: US ABDOMEN LIMITED Exam Date: 03/24/2025 8:19 PM Location: [facility] Indication: R03.0: Elevated blood pressure reading without diagnosis of hypertension Findings: Real-time sonography of the right upper quadrant was performed. The pancreas is unremarkable as visualized. There is fatty infiltration of the liver. The liver is prominent in size. There is no liver mass. There is no intrahepatic biliary dilatation. There is hepatopedal flow within the portal vein. The hepatic veins are patent. Common bile duct measured 5 mm. There are no ductal stones. Stones and sludge are seen within the gallbladder. The gallbladder wall is not thickened. There is no pericholecystic fluid. The patient was not tender over the gallbladder. The right kidney is unremarkable. No free fluid is seen within the right upper quadrant. Procedure Note Wellington Hurd MD - 03/24/2025 Procedure: US ABDOMEN LIMITED Exam Date: 03/24/2025 8:19 PM Location: [facility] Indication: R03.0: Elevated blood pressure reading without diagnosis of hypertension Findings: Real-time sonography of the right upper quadrant wasperformed. The pancreas is unremarkable as visualized. There is fatty infiltration of the liver. The liver is prominent in size. There is no liver mass. There is no intrahepatic biliary dilatation. There is hepatopedal flow within the portal vein. The hepatic veinsare patent. Common bile duct measured 5 mm. There are no ductal stones. Stones and sludge are seen within the gallbladder. The gallbladder aung not thickened. There is no pericholecystic fluid. The patient was not tender over the gallbladder. The right kidney is unremarkable. No free fluid is seen within the right upper quadrant. IMPRESSION: Fatty infiltration of the liver with mild hepatomegaly. Sludge and stones in the gallbladder. Patient was not tender over the gallbladder. > Interpreting Provider: Wellington Hurd MD on 03/24/2025 8:29 PM Tremayne Awad MD ORDERABLES Final Result * HIV-1 HIV-2 ANTIBODY + HIV P24 AG PANEL (02/19/2025 1:03 PM CDT) [facility] HIV Screen 4th Generation w Reflex NON-REACT CARRI NON-REACT CARRI [facility] Comment: HIV-1 antigen and HIV-1/HIV-2 antibodies were not detected. There is no laboratory evidence of HIV infection. PLEASE NOTE: This information has been disclosed to you from records whose confidentiality may be protected by state law. If your state requires such protection, then the state law prohibits you from making any further disclosure of the information without the specific written consent of the person to whom it pertains, or as otherwise permitted by law. A general authorization for the release of medical or other information is NOT sufficient for this purpose. For additional information please refer to http://education.[employer]Bridge.Surphace/faq/NMS469 (This link is being provided for informational/ educational purposes only.) The performance of this assay has not been clinically validated in patients less than 2 years old. Test Performed at: [facility] [address] [place] [address] KENJI ZURITA MD Blood BLOOD SPECIMEN / Unknown 02/19/2025 1:03 PM CDT 02/19/2025 1:03 PM CDT us Jay Dykes MD LAB - CHEMISTRY ORDERA BLES Final Result [facility] [id number] [place] [address] * PAP 2 OR MORE SLIDES (12/03/2023 12:00 AM CDT) us Historical Provider LAB - PATHOLOGY/CYTOLOGY ORDERABLES Final Result [facility] [address] [place] [address], [facility] [phone] from Last 3 Months or Most Recently Relevant to Health Maintenance Insurance MEDICAID [employer] [place] Advance Directives * Full Code (Latest Code Status on File) Date Activated Date Inactivated Comments 04/27/2025 1:17 AM 04/29/2025 8:02 PM * Full Code Date Activated Date Inactivated Comments 04/24/2025 8:29 PM 04/27/2025 1:17 AM * Full Code Date Activated Date Inactivated Comments 04/21/2025 8:14 PM 04/22/2025 12:20 PM * Full Code Date Activated Date Inactivated Comments 04/15/2025 5:15 PM 04/16/2025 1:31 PM Care Teams Clinical Reviewer Relationship Specialty Start Date End Date Albert Ruby MD [address] [address] PCP - General Family Medicine 11/08/24
--- OUTSIDE RECORDS SUMMARY | 2025-06-08 19:58 | XMS_ITS | Encounter Summary ---
Author Organization [facility] Address [address] [place] [address] Care Team Providers Care Block Stacker Name Role Phone Magda Gregorio DO Primary Care Provider [phone] Reason for Visit * Reason Comments Insurance Coverage Encounter Details Date Type Department Care Team (Late st Contact Info) Description 03/18/2024 Chart Note [facility] Bariatrics and General Surgery at the [facility] [address] [place] [address] Sissy Mccord MD [address] [place] [address] Insurance Coverage Social History Tobacco Use Types Packs/Day Years Used Date Smoking Tobacco: Never Smokeless Tobacco: Never Alcohol Use Standard Drinks/Week Comments No 0 (1 standard drink = 0.6 oz pur e alcohol) Comments No Sex and Gender Information Value Date Recorded Sex Assigned at Not on file Legal Sex Female 5:41 AM DUMPER BAILER OPERATOR Gender Identity Not on file Sexual Orientation Not on file documented as of this encounter Plan of Treatment Not on file documented as of this encounter Visit Diagnoses Not on filedocumented in this encounter Care Teams Block Stacker Relationship Specialty [place] [address] [place] [address] PCP - General Internal Medicine 10/14/22 documented as of this encounter
--- OUTSIDE RECORDS SUMMARY | 2025-06-08 19:58 | XMS_ITS | Encounter Summary ---
Author Organization [facility] Address [facility] [place] [address] Care Team Providers Care Dealer Compliance Representative Name Role Phone Albert Ruby MD Primary Care Provider [phone] Tremayne Shi MD Unavailable [phone] Encounter Details Date Type Department Care Team (Late Contact Info) Description 09/29/2020 [employer] Message Enc [facility] Family and Sports Medicine - [employer] [address] [place] [address] Albert Ruby MD [address] [address] RE: Question Social History Tobacco Use Types [...] Sex Assigned at Female 10/02/2024 10:48 AM DENTAL LABORATORY MANAGER Legal Sex Female 4:55 PM CDT Gender Identity Not on file Sexual Orientation Not on file Occupation Industry Job Start Date Job End Date Not on file Not on file Not on file Not on file documented as of this encounter Plan of Treatment Upcoming Encounters Date Type Department Care Team (Late Contact Info) Description 07/28/2025 10:00 AM DENTAL LABORATORY MANAGER Office Visit [facility] Family and Sports Medicine - [employer] [address] [facility] [place] [address] Albert Ruby MD [address] [facility] [address] [place] [address] documented as of this encounter Visit Diagnoses Not on filedocumented in this encounter Additional Health Concerns Infection Onset Date Last Indicated Resolved Time COVID-19 Rule Out 10/02/2024 10/02/2024 10/02/2024 10:45 AM DENTAL LABORATORY MANAGER Assessment Noted Time PHQ-9 Depression Total Score: 9 08/05/20 19 9:19 AM DENTAL LABORATORY MANAGER documented as of this encounter Care Teams Dealer Compliance Representative Relationship Specialty Start Date End Date Albert Ruby MD [address] [facility] [address] [place] [address] PCP - General FAMILY PRACTICE 05/16/18 Tremayne Shi MD [address] [place] [address] EP Wire Coiler Machine Operator CARDIOVASCULAR DISEASE 08/15/18 documented as of this encounter
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
[2025-06-08] MEDS: CEPHALEXIN 500 MG CAPSULE PO (20:13)
[2025-06-08] MEDS: MUPIROCIN 2% OINT 22 GM TUBE 1 APPLIC TOPICAL (20:16)
--- OUTSIDE RECORDS SUMMARY | 2025-06-08 20:35 | XMS_ITS | Encounter Summary ---
Author Organization [place] Address [facility] [place] [address] Care Team Providers Care Line Assembler Name Role Phone Albert Ruby MD Primary Care Provider [phone] Tremayne Shi MD Unavailable [phone] Encounter Details Date Type Department Care Team (Late st Contact Info) Description 05/04/2021 FreshPayt Message Enc [facility] Medical Group Family and Sports Medicine - [place] [address] [place] [address] Albert Ruby MD [address] [address] RE: Question Social History Tobacco Use Types [...] Sex Assigned at Female 10/02/2024 10:48 AM HYBRID TESTER Legal Sex Female 4:55 PM CDT Gender Identity Not on file Sexual Orientation Not on file Occupation Industry Job Start Date Job End Date Not on file Not on file Not on file Not on file documented as of this encounter Plan of Treatment Upcoming Encounters Date Type Department Care Team (Late st Contact Info) Description 07/28/2025 10:00 AM HYBRID TESTER Office Visit [facility] Medical Group Family and Sports Medicine - [place] [address] [facility] [place] [address] Albert Ruby MD [address] [facility] 200 [place] [address] documented as of this encounter Visit Diagnoses Not on filedocumented in this encounter Additional Health Concerns Infection Onset Date Last Indicated Resolved Time COVID-19 Rule Out 10/02/2024 10/02/2024 10/02/2024 10:45 AM HYBRID TESTER Assessment Noted Time PHQ-9 Depression Total Score: 10 021 8:11 AM HYBRID TESTER documented as of this encounter Care Teams Line Assembler Relationship Specialty Start Date End Date Albert Ruby MD [address] [facility] 200 [place] [address] PCP - General FAMILY PRACTICE 05/16/18 Tremayne Shi MD [address] [place] [address] EP Brim Stretcher CARDIOVASCULAR DISEASE 08/15/18 documented as of this encounter
--- OUTSIDE RECORDS SUMMARY | 2025-06-08 20:35 | XMS_ITS | Encounter Summary ---
Author Organization [facility] Address [facility] [place] [address] Care Team Providers Care B Operator Name Role Phone Albert Ruby MD Primary Care Provider [phone] Tremayne Shi MD Unavailable [phone] Encounter Details Date Type Department Care Team (Late st Contact Info) Description 12/15/2021 IntelligentMDxt Message Enc [facility] Medical Group Family and Sports Medicine - [place] [address] [place] [address] Albert Ruby MD [address] [address] Medication refills Social History Tobacco Use Types [...] Sex Assigned at Female 10/02/2024 10:48 AM STATION MANAGER Legal Sex Female 4:55 PM CDT Gender Identity Not on file Sexual Orientation Not on file Occupation Industry Job Start Date Job End Date Not on file Not on file Not on file Not on file documented as of this encounter Plan of Treatment Upcoming Encounters Date Type Department Care Team (Late st Contact Info) Description 07/28/2025 10:00 AM STATION MANAGER Office Visit [facility] Medical Group Family and Sports Medicine - [place] [address] [place] [address] Albert Ruby MD [address] [facility] [address] [place] [address] documented as of this encounter Visit Diagnoses Not on filedocumented in this encounter Additional Health Concerns Infection Onset Date Last Indicated Resolved Time COVID-19 Rule Out 10/02/2024 10/02/2024 10/02/2024 10:45 AM STATION MANAGER Assessment Noted Time PHQ-9 Depression Total Score: 8 06/17/20 21 1:36 PM CDT documented as of this encounter Care Teams B Operator Relationship Specialty Start Date End Date Albert Ruby MD [address] [facility] [address] [place] [address] PCP - General FAMILY PRACTICE 05/16/18 Tremayne Shi MD [address] [place] [address] EP Residential Door Installer CARDIOVASCULAR DISEASE 08/15/18 documented as of this encounter
--- OUTSIDE RECORDS SUMMARY | 2025-06-08 20:35 | XMS_ITS | Encounter Summary ---
Author Organization [facility] Address [facility] [place] [address] Care Team Providers Care Kindergartner Name Role Phone Albert Ruby MD Primary Care Provider [phone] Tremayne Shi MD Unavailable [phone] Encounter Details Date Type Department Care Team (Late st Contact Info) Description 03/24/2021 Alta Analogt Message Enc [facility] Medical Group Family and Sports Medicine - [place] [address] [place] [address] Albert Ruby MD [address] [address] RE: Other Social History Tobacco Use Types [...] Sex Assigned at Female 10/02/2024 10:48 AM CLINICAL TRIAL COORDINATOR Legal Sex Female 4:55 PM CDT Gender Identity Not on file Sexual Orientation Not on file Occupation Industry Job Start Date Job End Date Not on file Not on file Not on file Not on file documented as of this encounter Plan of Treatment Upcoming Encounters Date Type Department Care Team (Late st Contact Info) Description 07/28/2025 10:00 AM CLINICAL TRIAL COORDINATOR Office Visit [facility] Medical Group Family and Sports Medicine - [place] [address] [facility] [place] [address] Albert Ruby MD [address] [facility] [address] [place] [address] documented as of this encounter Visit Diagnoses Not on filedocumented in this encounter Additional Health Concerns Infection Onset Date Last Indicated Resolved Time COVID-19 Rule Out 10/02/2024 10/02/2024 10/02/2024 10:45 AM CLINICAL TRIAL COORDINATOR Assessment Noted Time PHQ-9 Depression Total Score: 10 021 8:11 AM CLINICAL TRIAL COORDINATOR documented as of this encounter Care Teams Kindergartner Relationship Specialty Start Date End Date Albert Ruby MD [address] [facility] 200 [place] [address] PCP - General FAMILY PRACTICE 05/16/18 Tremayne Shi MD [address] [place] [address] EP Director Marketing Analytics CARDIOVASCULAR DISEASE 08/15/18 documented as of this encounter
--- OUTSIDE RECORDS SUMMARY | 2025-06-08 20:35 | XMS_ITS | Encounter Summary ---
Author Organization [facility] Address [address] [place] [address] Care Team Providers Care Monitor Tech Name Role Phone Albert Ruby MD Primary Care Provider [phone] Reason for Visit * Reason Onset Date Comments MEDICATION REFILL 11/19/2024 Encounter Details Date Type Department Care Team (Late st Contact Info) Description 11/19/2024 Refill [facility] - LAND MANAGEMENT FORESTER [address] [facility] [address] [place] [address] Rufino Platt MD [address] [facility] [address] [place], [place] [id number] MEDICATION REFILL Social History Tobacco Use Types [...] PM CDT Legal Sex Female 5:26 AM BOAT CARPENTER Gender Identity Not on file Sexual Orientation Not on file Occupation Industry Job Start Date Job End Date 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 [...] CDT Clinical Support [facility] - LAND MANAGEMENT FORESTER [address] [place] [address] 06/09/2025 9:30 AM CDT Procedure visit [facility] - LAND MANAGEMENT FORESTER [address] [place] [address] Mandy Krishnan STAFF ELECTRONIC WARFARE OFFICER-MANAGER FIBER [address] [place] [address] 06/10/2025 1:40 PM CDT Procedure visit [facility] - LAND MANAGEMENT FORESTER [address] [place] [address] Leila Burt, STAFF ELECTRONIC WARFARE OFFICER-MANAGER FIBER [address] [place] [address] documented as of this encounter Visit Diagnoses Not on filedocumented in this encounter Care Teams Monitor Tech Relationship Specialty Start Date End Date Albert Ruby MD [address] [place] [address] PCP - General Family Medicine 11/08/24 documented as of this encounter
--- OUTSIDE RECORDS SUMMARY | 2025-06-08 20:35 | XMS_ITS | Encounter Summary ---
Author Organization [facility] Health Address [address] [facility] [place] [address] Care Team Providers Care Natural Resources Professor Name Role Phone Albert Ruby MD Primary Care Provider [phone] Reason for Visit * Reason Onset Date Comments Care 03/03/2025 Feeling pressure in pelvic area Encounter Details Date Type Department Care Team (Late st Contact Info) Description 03/03/2025 Telephone [facility] - Centralized Scheduling [address] [place] [address] Ольга Breen APRN-FELICITAS [address] [place] [address] Care (Feeling pressure in pelvic area) Social History Tobacco Use Types Packs/Day Years Used Date Smoking Tobacco: Never Alcohol Use Standard Drinks/Week Comments No 0 (1 standard drink = 0.6 oz pur e alcohol) PHQ-2 Answer Date Recorded Patient Health Questionnaire-2 Score 0 02/25/2025 [place] Depression Scale Answer Date Recorded [place] Depression Scale Total 4 03/04/2025 The thought [...] PM CDT Legal Sex Female 5:26 AM HARDWARE TEST ENGINEER Gender Identity Not on file Sexual Orientation Not on file Occupation Industry Job 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 Date Job End Date 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 ,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 [...] assist, thank you Patient Call Back Number: [phone] documented in this encounter Plan of Treatment Upcoming Encounters Date Type Department Care Team (Late st Contact Info) Description 06/09/2025 9:20 AM CDT Clinical Support [facility] - THERAPEUTIC MASSAGE TECHNICIAN [address] [place] [address] 06/09/2025 9:30 AM CDT Procedure visit [facility] - THERAPEUTIC MASSAGE TECHNICIAN [address] [place] [address] Mandy Krishnan, MOBILITY ARCHITECT MANAGER-SPORTS INFORMATION DIRECTOR [address] [place] [address] 06/10/2025 1:40 PM CDT Procedure visit [facility] - THERAPEUTIC MASSAGE TECHNICIAN [address] [place] [address] Leila Burt, MOBILITY ARCHITECT MANAGER-SPORTS INFORMATION DIRECTOR [address] [place] [address] documented as of this encounter Visit Diagnoses Not on filedocumented in this encounter Care Teams Natural Resources Professor Relationship Specialty Start Date End Date Albert Ruby MD [address] [address] PCP - General Family Medicine 11/08/24 documented as of this encounter
--- OUTSIDE RECORDS SUMMARY | 2025-06-08 20:35 | XMS_ITS | Encounter Summary ---
Author Organization [facility] Health Address [address] [facility] [place] [address] Care Team Providers Care Industrial Engineering Analyst Name Role Phone Albert Ruby MD Primary Care Provider [phone] Reason for Visit * Reason Onset Date Comments Care 05/16/2025 Encounter Details Date Type Department Care Team (Late st Contact Info) Description 05/16/2025 Telephone [facility] - Centralized Scheduling [address] [place] [address] Ольга Breen APRN-NETWORK DIAGNOSTIC SUPPORT SPECIALIST [address] [place] [address] Care Social History Tobacco Use [...] Recorded Patient Health Questionnaire-2 Score 0 04/14/2025 [facility] of Occupat ional Health - Occupational Stress [...] things needed for daily living? No 04/24/2025 [place] Depression Scale Answer Date Recorded [place] Depression Scale Total 1 05/05/2025 The thought [...] were you homeless or living in a nursing home (including now)? No 04/24/2025 Education Answer Date Recorded What is the highest level of school you have completed or the highest degree you have received? 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 documented in this encounter Plan of Treatment Upcoming Encounters Date Type Department Care Team (Late st Contact Info) Description 06/09/2025 9:20 AM CDT Clinical Support [facility] - RECRUITING SPECIALIST [address] [place] [address] 06/09/2025 9:30 AM CDT Procedure visit [facility] - RECRUITING SPECIALIST [address] [place] [address] Mandy Krishnan APRN-CNP [address] [place] [address] 06/10/2025 1:40 PM CDT Procedure visit [facility] - RECRUITING SPECIALIST [address] [place] [address] Leila Burt, QUALITY REVIEW SPECIALIST-NETWORK DIAGNOSTIC SUPPORT SPECIALIST [address] [facility] [address] [place] [address] documented as of this encounter Visit Diagnoses Not on filedocumented in this encounter Care Teams Industrial Engineering Analyst Relationship Specialty Start Date End Date Albert Ruby MD [address] [address] PCP - General Family Medicine 11/08/24 documented as of this encounter
--- OUTSIDE RECORDS SUMMARY | 2025-06-08 20:35 | XMS_ITS | Encounter Summary ---
Author Organization [facility] Address [address] [place] [address] Care Team Providers Care Solar Sales Associate Name Role Phone Albert Ruby MD Primary Care Provider [phone] Reason for Visit * Reason Onset Date Comments Follow-up 04/17/2025 Encounter Details Date Type Department Care Team (Late st Contact Info) Description 04/17/2025 Telephone [facility] - COUNTER TOP ASSEMBLER [address] [facility] [address] [place] [address] Ольга Breen APRN-[facility] [address] [place] [address] Follow-up Social History Tobacco Use [...] Recorded Patient Health Questionnaire-2 Score 0 04/14/2025 [employer] [place] of Occupat ional Health - Occupational Stress [...] things needed for daily living? No 04/21/2025 [place] Depression Scale Answer Date Recorded [place] Depression Scale Total 4 04/07/2025 The thought [...] any time in the past 12 m [facility], were you homeless or living in a senior living (including now)? No 04/21/2025 Education Answer Date Recorded What is the highest level of school you have completed or the highest degree you have received? 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 Answer Entry Date Author No 04/15/2025 5:08 PM CDT Mehdi Lombardo RN documented in this encounter Plan of Treatment Upcoming Encounters Date Type Department Care Team (Late st Contact Info) Description 06/09/2025 9:20 AM CDT Clinical Support [facility] - COUNTER TOP ASSEMBLER [address] [place] [address] 06/09/2025 9:30 AM CDT Procedure visit [facility] - COUNTER TOP ASSEMBLER [address] [place] [address] Mandy Krishnan, NUCLEAR EQUIPMENT TEST ENGINEER-LAMINATION BUILDER [address] [place] [address] 06/10/2025 1:40 PM CDT Procedure visit [facility] Group - COUNTER TOP ASSEMBLER [address] [place] [address] Leila Burt, NUCLEAR EQUIPMENT TEST ENGINEER-LAMINATION BUILDER [address] [place] [address] documented as of this encounter Visit Diagnoses Not on filedocumented in this encounter Care Teams Solar Sales Associate Relationship Specialty Start Date End Date Albert Ruby MD [address] [address] PCP - General Family Medicine 11/08/24 documented as of this encounter
--- OUTSIDE RECORDS SUMMARY | 2025-06-08 20:35 | XMS_ITS | Encounter Summary ---
Author Organization [facility] Address [facility] [place] [address] Care Team Providers Care Life Insurance Agent Name Role Phone Albert Ruby MD Primary Care Provider [phone] Tremayne Shi MD Unavailable [phone] Encounter Details Date Type Department Care Team (Late Contact Info) Description 09/29/2020 MyCKalpesh Wirelesst Message Enc [facility] Medical Group Family and Sports Medicine - [place] [address] [place] [address] Albert Ruby MD [address] [address] RE: Question Social History Tobacco Use Types [...] Sex Assigned at Female 10/02/2024 10:48 AM SHADE CUTTER Legal Sex Female 4:55 PM CDT Gender Identity Not on file Sexual Orientation Not on file Occupation Industry Job Start Date Job End Date Not on file Not on file Not on file Not on file documented as of this encounter Plan of Treatment Upcoming Encounters Date Type Department Care Team (Late Contact Info) Description 07/28/2025 10:00 AM SHADE CUTTER Office Visit [facility] Medical Group Family and Sports Medicine - [place] [address] [facility] [place] [address] Albert Ruby MD [address] [facility] [address] [place] [address] documented as of this encounter Visit Diagnoses Not on filedocumented in this encounter Additional Health Concerns Infection Onset Date Last Indicated Resolved Time COVID-19 Rule Out 10/02/2024 10/02/2024 10/02/2024 10:45 AM SHADE CUTTER Assessment Noted Time PHQ-9 Depression Total Score: 9 08/05/20 19 9:19 AM SHADE CUTTER documented as of this encounter Care Teams Life Insurance Agent Relationship Specialty Start Date End Date Albert Ruby MD [address] [facility] [address] [place] [address] PCP - General FAMILY PRACTICE 05/16/18 Tremayne Shi MD [address] [facility] [address] [place] [address] EP Market Consultant CARDIOVASCULAR DISEASE 08/15/18 documented as of this encounter
--- OUTSIDE RECORDS SUMMARY | 2025-06-08 20:35 | XMS_ITS | Encounter Summary ---
Author Organization [facility] Address [facility] [place] [address] Care Team Providers Care Animal Pathology Teacher Name Role Phone Albert Ruby MD Primary Care Provider [phone] Tremayne Shi MD Unavailable [phone] Encounter Details Date Type Department Care Team (Late st Contact Info) Description 04/03/2021 Mobicioust Message Enc [facility] Medical Group Family and Sports Medicine - [place] [address] [place] [address] Albert Ruby MD [address] [address] RE: Referral Request Social History Tobacco Use [...] Assigned at Female 10/02/2024 10:48 AM CLINICAL EDUCATION CONSULTANT Legal Sex Female 4:55 PM CDT Gender Identity Not on file Sexual Orientation Not on file Occupation Industry Job Start Date Job End Date Not on file Not on file Not on file Not on file documented as of this encounter Plan of Treatment Upcoming Encounters Date Type Department Care Team (Late st Contact Info) Description 07/28/2025 10:00 AM CLINICAL EDUCATION CONSULTANT Office Visit [facility] Medical Group Family and Sports Medicine - [place] [address] [facility] [place] [address] Albert Ruby MD [address] [facility] [address] [place] [address] documented as of this encounter Visit Diagnoses Not on filedocumented in this encounter Additional Health Concerns Infection Onset Date Last Indicated Resolved Time COVID-19 Rule Out 10/02/2024 10/02/2024 10/02/2024 10:45 AM CLINICAL EDUCATION CONSULTANT Assessment Noted Time PHQ-9 Depression Total Score: 10 021 8:11 AM CLINICAL EDUCATION CONSULTANT documented as of this encounter Care Teams Animal Pathology Teacher Relationship Specialty Start Date End Date Albert Ruby MD [address] [facility] [address] [place] [address] PCP - General FAMILY PRACTICE 05/16/18 Tremayne Shi MD [address] [place] [address] EP Child Care Sitter CARDIOVASCULAR DISEASE 08/15/18 documented as of this encounter
--- OUTSIDE RECORDS SUMMARY | 2025-06-08 20:35 | XMS_ITS | Encounter Summary ---
Author Organization [facility] Address [facility] [place] [address] Care Team Providers Care Electric Meter Reader Name Role Phone Albert Ruby MD Primary Care Provider [phone] Tremayne Shi MD Unavailable [phone] Encounter Details Date Type Department Care Team (Late st Contact Info) Description 04/06/2021 [employer] Message Enc [facility] [facility] THREE [facility] [address] [place], [place] [address] Tremayne Shi MD Three [facility] [address] [place], [place] [address] RE: Medication Questions Social History Tobacco Use [...] Sex Assigned at Female 10/02/2024 10:48 AM SEO COORDINATOR Legal Sex Female 4:55 PM CDT Gender Identity Not on file Sexual Orientation Not on file Occupation Industry Job Start Date Job End Date Not on file Not on file Not on file Not on file documented as of this encounter Plan of Treatment Upcoming Encounters Date Type Department Care Team (Late st Contact Info) Description 07/28/2025 10:00 AM SEO COORDINATOR Office Visit [facility] Medical Group Family and Sports Medicine - [place] [address] [place] [address] Albert Ruby MD [address] [facility] [address] [place] [address] documented as of this encounter Visit Diagnoses Not on filedocumented in this encounter Additional Health Concerns Infection Onset Date Last Indicated Resolved Time COVID-19 Rule Out 10/02/2024 10/02/2024 10/02/2024 10:45 AM SEO COORDINATOR Assessment Noted Time PHQ-9 Depression Total Score: 10 021 8:11 AM SEO COORDINATOR documented as of this encounter Care Teams Electric Meter Reader Relationship Specialty Start Date End Date Albert Ruby MD [address] [facility] 200 [place] [address] PCP - General FAMILY PRACTICE 05/16/18 Tremayne Shi MD [facility] [address] [place] [address] EP Stem Shaper CARDIOVASCULAR DISEASE 08/15/18 documented as of this encounter
--- OUTSIDE RECORDS SUMMARY | 2025-06-08 20:35 | XMS_ITS | Clinical Summary ---
Author Organization [facility] Address [address] [place] [address] Care Team Providers Care Detective Supervisor Name Role Phone Magda Gregorio DO Primary Care Provider Allergies Active Allergy Reactions Criticality Noted Date [...] COVID-19 VACCINE - EMERGENCY USE AUTHORIZATION, MRNA, [id number](PF) 30 MCG/0.3 ML IM SUSP 05/13/2021,02/23/2021 (PROQUAD)(12 [...] on file Legal Sex Female 5:41 AM BIOMEDICAL SPECIALIST Gender Identity Not on file Sexual Orientation Not on file Last Filed Vital Signs Vital Sign Reading Time Taken Comments Blood Pressure 118/74 10/14/2022 10:43 AM BIOMEDICAL SPECIALIST Pulse 75 10/14/2022 10:43 AM BIOMEDICAL SPECIALIST Temperature 36.9 C (98.4 F) 10/14/2022 10:43 AM BIOMEDICAL SPECIALIST Respiratory Rate 20 01/21/2011 9:13 AM CDT Oxygen Saturation 99% 10/14/2022 10:43 AM BIOMEDICAL SPECIALIST Inhaled Oxygen Concentration - - Weight 125.2 kg (276 lb) 10/14/2022 10:43 AM BIOMEDICAL SPECIALIST Height 167.6 cm (5' 6) 10/14/2022 10:43 AM BIOMEDICAL SPECIALIST Body Mass Index 44.55 10/14/2022 10:43 AM BIOMEDICAL SPECIALIST Plan of Treatment Health Maintenance Due Date [...] or ) (No Doses Required) Com[facility] Advance Directives For more information, please contact: [phone] * Full Code (Latest Code Status on File) Date Activated Date Inactivated Comments 01/21/2011 8:00 AM 01/21/2011 11:52 AM Care Teams Detective Supervisor Relationship Specialty [place] [address] [address] PCP - General Internal Medicine 10/14/22
--- OUTSIDE RECORDS SUMMARY | 2025-06-08 20:35 | XMS_ITS | Encounter Summary ---
Author Organization [facility] Address [facility] [place] [address] Care Team Providers Care Spray Maker Name Role Phone Albert Ruby MD Primary Care Provider [phone] Tremayne Shi MD Unavailable [phone] Encounter Details Date Type Department Care Team (Late st Contact Info) Description 02/16/2021 TwoFisht Message Enc [facility] Medical [facility] Family and Sports Medicine - [place] [address] [place] [address] Albert Ruby MD [address] [address] RE: Referral Request Social History Tobacco Use [...] Sex Assigned at Female 10/02/2024 10:48 AM HOSTAGE NEGOTIATOR Legal Sex Female 4:55 PM CDT Gender Identity Not on file Sexual Orientation Not on file Occupation Industry Job Start Date Job End Date Not on file Not on file Not on file Not on file documented as of this encounter Plan of Treatment Upcoming Encounters Date Type Department Care Team (Late st Contact Info) Description 07/28/2025 10:00 AM HOSTAGE NEGOTIATOR Office Visit [facility] Medical [facility] Family and Sports Medicine - [place] [address] [facility] [place] [address] Albert Ruby MD [address] [facility] [address] [place] [address] documented as of this encounter Visit Diagnoses Not on filedocumented in this encounter Additional Health Concerns Infection Onset Date Last Indicated Resolved Time COVID-19 Rule Out 10/02/2024 10/02/2024 10/02/2024 10:45 AM HOSTAGE NEGOTIATOR Assessment Noted Time PHQ-9 Depression Total Score: 10 021 8:11 AM HOSTAGE NEGOTIATOR documented as of this encounter Care Teams Spray Maker Relationship Specialty Start Date End Date Albert Ruby MD [address] [facility] [address] [place] [address] PCP - General FAMILY PRACTICE 05/16/18 Tremayne Shi MD [address] [place] [address] EP Holiday Detector Operator CARDIOVASCULAR DISEASE 08/15/18 documented as of this encounter
--- OUTSIDE RECORDS SUMMARY | 2025-06-08 20:35 | XMS_ITS | Encounter Summary ---
Author Organization [facility] Address [address] [facility] [place] [address] Care Team Providers Care Logistics Lead Name Role Phone Albert Ruby MD Primary Care Provider [phone] Reason for Visit * Reason Onset Date Comments Appointment 03/04/2025 Encounter Details Date Type Department Care Team (Late st Contact Info) Description 03/04/2025 Telephone [facility] - WAFER POLISHER [address] [facility] [address] [place] [address] Ольга Breen APRN-HELP DESK INTERN [address] [place] [address] Appointment Social History Tobacco Use Types Packs/Day Years Used Date Smoking Tobacco: Never Alcohol Use Standard Drinks/Week Comments No 0 (1 standard drink = 0.6 oz pur e alcohol) PHQ-2 Answer Date Recorded Patient Health Questionnaire-2 Score 0 02/25/2025 [place] Depression Scale Answer Date Recorded [place] Depression Scale Total 4 03/04/2025 The thought [...] PM CDT Legal Sex Female 5:26 AM BRIM IRONER HAND Gender Identity Not on file Sexual Orientation Not on file Occupation Industry Job Start Date Job End Date 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 CB: [phone] documented in this encounter Plan of Treatment Upcoming Encounters Date Type Department Care Team (Late st Contact Info) Description 06/09/2025 9:20 AM CDT Clinical Support [facility] - WAFER POLISHER [address] [place] [address] 06/09/2025 9:30 AM CDT Procedure visit [facility] - WAFER POLISHER [address] [place] [address] Mandy Krishnan, LAYOUT FORMER-HELP DESK INTERN [address] [place] [address] 06/10/2025 1:40 PM CDT Procedure visit [facility] - WAFER POLISHER [address] [place] [address] Leila Burt, LAYOUT FORMER-HELP DESK INTERN [address] [place] [address] documented as of this encounter Visit Diagnoses Not on filedocumented in this encounter Care Teams Logistics Lead Relationship Specialty Start Date End Date Albert Ruby MD [address] [place] [address] PCP - General Family Medicine 11/08/24 documented as of this encounter
--- OUTSIDE RECORDS SUMMARY | 2025-06-08 20:35 | XMS_ITS | Encounter Summary ---
Author Organization [facility] Address [address] [place] [address] Care Team Providers Care Dining Room Attendant Name Role Phone Albert Ruby MD Primary Care Provider [phone] Tremayne Shi MD Unavailable [phone] Reason for Visit * Reason Onset Date Comments Appointment Request 06/30/2021 Encounter Details Date Type Department Care Team (Late st Contact Info) Description 06/30/2021 [employer] Message Enc [facility] THREE [facility] [address] [place] [address] Tremayne Shi MD Three [facility]. [facility] [address] [place] [address] RE: Follow Up/Update Social History [...] Sex Assigned at Female 10/02/2024 10:48 AM LEARNING AND DEVELOPMENT ADMINISTRATOR Legal Sex Female 4:55 PM CDT Gender [...] patient a voicemail and sent her a [employer] message asking her to contact me to schedule a virtual visit. documented in this encounter Plan of Treatment Upcoming Encounters Date Type Department Care Team (Late st Contact Info) Description 07/28/2025 10:00 AM LEARNING AND DEVELOPMENT ADMINISTRATOR Office Visit [facility] Family and Sports Medicine - [place] [address] [place] [address] Albert Ruby MD [address] [place] [address] documented as of this encounter Visit Diagnoses Not on filedocumented in this encounter Additional Health Concerns Infection Onset Date Last Indicated Resolved Time COVID-19 Rule Out 10/02/2024 10/02/2024 10/02/2024 10:45 AM LEARNING AND DEVELOPMENT ADMINISTRATOR Assessment Noted Time PHQ-9 Depression Total Score: 8 06/17/20 21 1:36 PM CDT documented as of this encounter Care Teams Dining Room Attendant Relationship Specialty Start Date End Date Albert Ruby MD [address] [place] [address] PCP - General FAMILY PRACTICE 05/16/18 Tremayne Shi MD Three [facility]. [address] [id number] EP Metal Bonding Worker CARDIOVASCULAR DISEASE 08/15/18 documented as of this encounter
--- OUTSIDE RECORDS SUMMARY | 2025-06-08 20:35 | XMS_ITS | Encounter Summary ---
Author Organization [facility] Address [address] [place] [address] Care Team Providers Care Install And Repair Technician Name Role Phone Magda Gregorio DO Primary Care Provider [phone] Encounter Details Date Type Department Care Team (Late st Contact Info) Description 02/05/2009 Outpatient Historical [facility] Bialey Arana MD [address] [place] [address] Abdominal Pain, Unspecified Site Social History Tobacco Use Types Packs/Day Years Used Date Smoking Tobacco: Never Assessed Comments Unknown Sex and Gender Information Value Date Recorded Sex Assigned at Not on file Legal Sex Female 5:41 AM THIRD MATE Gender Identity Not on file Sexual Orientation [...] AM CDT Narrative 02/05/2009 1:02 PM CDT [facility] [address] [place], [place] [address] Admit Date: 02/05/2009 PRANAY GONZALEZ Sex: F Admit Prov: BAILEY ARANA Date: 2000 Primary Care Prov: BAILEY ARANA CMRN: [id number] Room: [facility] SSN: IMAGING SERVICES Ordering Prov: N/A Accession Number: [id number] Interpretation Examination: Ultrasound Abdomen Limited (Gallbladder and [...] Procedure Note Everton Paul MD - 02/05/2009 [facility] [address] [place], [place] [address] Admit Date: 02/05/2009 LISAPRANAY Sex: F Admit Prov: BAILEY ARANA Date: 2000 Primary Care Prov: BAILEY ARANA CMRN: [id number] Room: [facility] SSN: IMAGING SERVICES Ordering Prov: N/A Interpretation [...] site documented in this encounter Care Teams Install And Repair Technician Relationship Specialty [place] [address] [place] [address] PCP - General Internal Medicine 10/14/22 documented as of this encounter
--- OUTSIDE RECORDS SUMMARY | 2025-06-08 20:36 | XMS_ITS | Clinical Summary ---
Author Organization [facility] Address [address] [place] [address] Care Team Providers Care Emergency Communications Dispatcher Name Role Phone Albert Ruby MD Primary Care Provider [phone] Tremayne Shi MD Unavailable [phone] Allergies Active Allergy Reactions Criticality Noted Date [...] CDT - 06/04/2025 7:22 PM CDT [facility] [address] [place] [address] [place] [address] Campbell Lyon MD Gan (Abdomen/) Discharge Disposition: Home or Self Care (Routine Discharge) 06/04/2025 Travel 05/26/2025 4:51 PM CDT - 05/26/2025 5:21 PM CDT [facility] [address] [place] [address] [place] [address] Wound Discharge Disposition: Home or Self Care [...] Assigned at Female 10/02/2024 10:48 AM MANAGER HEART FAILURE Legal Sex Female 4:55 PM CDT Gender [...] st Contact Info) Description 07/28/2025 10:00 AM MANAGER HEART FAILURE Office Visit [facility] Medical Group Family and Sports Medicine - [place] [address] [facility] [place] [address] Albert Ruby MD [address] [place] [address] Health Maintenance Due Date Last Done Comments [...] exists Hepatitis C Completed 04/25/2024 PHQ-2 (Physician [place]) Completed 10/22/2024 RSV Immunizations Under 20 Months [...] HEPATITIS C AB NON-REACT CARRI NON-REACT CARRI [facility] Comment: HCV antibody was non-reactive. There is no laboratory evidence of HCV infection. In most cases, no further action is required. However, if recent HCV exposure is suspected, a test for HCV RNA (test code 11582) is suggested. For additional information please refer to http://education.Stonestreet One.Knomo/faq/PQG31g7 (This link is being provided for informational/ educational purposes only.) 04/25/2024 1:09 PM CDT 04/25/2024 1:14 PM CDT Narrative [facility] - 04/26/2024 11:32 AM CDT FASTING:YES FASTING: YES Resulting Agency Comment Performing Organization Information: Site ID: [id number] Name: [facility] Address: [address] [address] Director: Yuli Li MD Albert Ruby MD LABORATORY Final Result [facility] [address] [address], * (ABNORMAL) HEMOGLOBIN, GLYCOSYLATED (04/25/2024 1:09 PM CDT) HGB A1C 5.7(H) <5.7 % of total Hgb [facility] [place] Comment: For someone without known diabetes, [...] change in test platforms from the Telles Quick Technician to the Niurka kulwinder c503 may have shifted HbA1c results compared to historical results. Based on laboratory validation testing conducted at [facility], the Niurka platform relative to the Telles [...] PM CDT 04/25/2024 1:14 PM CDT Narrative [facility] - 04/26/2024 11:32 AM CDT FASTING:YES FASTING: YES Resulting Agency Comment Performing Organization Information: Site ID: [id number] Name: [email or web address] Address: [address] [place] [address] Director: Yuli Li Albert Ruby MD LABORATORY Final Result [facility] [address], * (ABNORMAL) LIPID PANEL (04/25/2024 1:09 PM CDT) CHOLESTEROL 104 <200 mg/dL [facility] HDL 43(L) > OR = 50 mg/dL [facility] TRIGLYCERIDES 67 <150 mg/dL [facility] LDL (CALCULATED) 47 mg/dL (calc) [facility] Comment: Reference range: <100 Desirable range <100 mg/dL for primary prevention; <70 mg/dL for patients with CHD or diabetic patients with > or = 2 CHD risk factors. LDL-C is now calculated using the Amairani calculation, which is a validated novel method providing better accuracy than the Friedewald equation in the estimation of LDL-C. Kevin SS et al. AMAN. 2013;310(19): 4039-9214 (http://education.CoScale/faq/GNB122) CHOL/HDL RATIO 2.4 <5.0 (calc) [facility] NON HDL CHOLESTEROL 61 <130 mg/dL (calc) [facility] Comment: For patients with diabetes plus 1 major ASCVD risk factor, treating to a non-HDL-C goal of <100 mg/dL (LDL-C of <70 mg/dL) is considered a therapeutic option. 04/25/2024 1:09 PM CDT 04/25/2024 1:14 PM CDT Narrative [facility] - 04/26/2024 11:32 AM CDT FASTING:YES FASTING: YES Resulting Agency Comment Performing Organization Information: Site ID: [id number] Name: [facility] Address: [address] [address] Director: Yuli Li MD Albert Ruby MD LABORATORY Final Result [facility] [address] [place] [address], from Last 3 Months or Most Recently Relevant to Health Maintenance Insurance [facility] AETNA [address] [place] [id number] Care Teams Emergency Communications Dispatcher Relationship Specialty Start Date End Date Albert Ruby MD [address] [place] [address] PCP - General FAMILY PRACTICE 05/16/18 Tremayne Shi MD [address] [address] EP First Aid Director CARDIOVASCULAR DISEASE 08/15/18
--- OUTSIDE RECORDS SUMMARY | 2025-06-08 20:36 | XMS_ITS | Clinical Summary ---
Author Organization [facility] Address [address] [address] Phone Care Team Providers Care Boathouse Keeper Name Role Phone Albert Ruby MD Primary Care Provider [phone] Allergies Active Allergy Reactions Criticality Noted Date [...] patient's age to complete this topic Insurance REPLACED BY [facility] Care Teams Boathouse Keeper Relationship Specialty Start Date End Date Albert Ruby MD [address] [address] PCP - General Family Medicine 12/26/23
--- OUTSIDE RECORDS SUMMARY | 2025-06-08 20:36 | XMS_ITS | Encounter Summary ---
Author Organization [facility] Address [facility]ly [facility] [place] [address] Care Team Providers Care Bowling Alley Floors Installer Name Role Phone Albert Ruby MD Primary Care Provider [phone] Tremayne Shi MD Unavailable [phone] Encounter Details Date Type Department Care Team (Late st Contact Info) Description 04/21/2020 [employer] Message Enc [facility] Medical Group Family and Sports Medicine - [place] [address] [place] [address] Albert Ruby MD [address] [facility] [address] [place] [address] RE: Question Social History Tobacco Use Types [...] Sex Assigned at Female 10/02/2024 10:48 AM TECHNICAL MANAGER CHEMICAL PLANT Legal Sex Female 4:55 PM CDT Gender [...] st Contact Info) Description 07/28/2025 10:00 AM TECHNICAL MANAGER CHEMICAL PLANT Office Visit [facility] Medical Group Family and Sports Medicine - [place] [address] [place] [address] Albert Ruby MD [address] [facility] [address] [place] [address] documented as of this encounter Visit Diagnoses Not on filedocumented in this encounter Additional Health Concerns Infection Onset Date Last Indicated Resolved Time COVID-19 Rule Out 10/02/2024 10/02/2024 10/02/2024 10:45 AM TECHNICAL MANAGER CHEMICAL PLANT Assessment Noted Time PHQ-9 Depression Total Score: 9 08/05/20 19 9:19 AM TECHNICAL MANAGER CHEMICAL PLANT documented as of this encounter Care Teams Bowling Alley Floors Installer Relationship Specialty Start Date End Date Albert Ruby MD [address] [facility] [address] [place] [address] PCP - General FAMILY PRACTICE 05/16/18 Tremayne Shi MD [facility] [address] [place] [address] EP Press Feeder CARDIOVASCULAR DISEASE 08/15/18 documented as of this encounter
--- OUTSIDE RECORDS SUMMARY | 2025-06-08 20:36 | XMS_ITS | Encounter Summary ---
Author Organization [facility] Address [facility] [place] [address] Care Team Providers Care Log Hooker Name Role Phone Albert Ruby MD Primary Care Provider [phone] Tremayne Shi MD Unavailable [phone] Encounter Details Date Type Department Care Team (Late st Contact Info) Description 05/23/2023 Growlifet Message Enc [facility] Medical Group Family and Sports Medicine - [place] [address] [place] [address] Tana Dennison, LEAD CARE MANAGER [address] [place] [address] Blood pressures Social History Tobacco Use Types [...] Sex Assigned at Female 10/02/2024 10:48 AM INSPECTOR COLD WORKING Legal Sex Female 4:55 PM CDT Gender Identity Not on file Sexual Orientation Not on file Occupation Industry Job Start Date Job End Date Not on file Not on file Not on file Not on file documented as of this encounter Plan of Treatment Upcoming Encounters Date Type Department Care Team (Late st Contact Info) Description 07/28/2025 10:00 AM INSPECTOR COLD WORKING Office Visit [facility] Medical Group Family and Sports Medicine - [place] [address] [facility] [place] [address] Albert Ruby MD [address] [facility] [address] [place] [address] documented as of this encounter Visit Diagnoses Not on filedocumented in this encounter Additional Health Concerns Infection Onset Date Last Indicated Resolved Time COVID-19 Rule Out 10/02/2024 10/02/2024 10/02/2024 10:45 AM INSPECTOR COLD WORKING Assessment Noted Time PHQ-9 Depression Total Score: 11 022 11:44 AM CDT documented as of this encounter Care Teams Log Hooker Relationship Specialty Start Date End Date Albert Ruby MD [address] [facility] [address] [place] [address] PCP - General FAMILY PRACTICE 05/16/18 Tremayne Shi MD [address] [place] [address] EP Director Of Rooms CARDIOVASCULAR DISEASE 08/15/18 documented as of this encounter
--- OUTSIDE RECORDS SUMMARY | 2025-06-08 20:36 | XMS_ITS | Encounter Summary ---
Author Organization [facility] Address [facility] [place] [address] Care Team Providers Care City Jailer Name Role Phone Albert Ruby MD Primary Care Provider [phone] Tremayne Shi MD Unavailable [phone] Encounter Details Date Type Department Care Team (Late st Contact Info) Description 10/03/2022 Cherryt Message Enc [facility] Medical Group Family and Sports Medicine - [place] [address] [place] [address] Albert Ruby MD [address] [address] Depression Medications Social History Tobacco Use Types [...] Sex Assigned at Female 10/02/2024 10:48 AM CAMPGROUND CLEANING ATTENDANT Legal Sex Female 4:55 PM CDT Gender Identity Not on file Sexual Orientation Not on file Occupation Industry Job Start Date Job End Date Not on file Not on file Not on file Not on file documented as of this encounter Plan of Treatment Upcoming Encounters Date Type Department Care Team (Late st Contact Info) Description 07/28/2025 10:00 AM CAMPGROUND CLEANING ATTENDANT Office Visit [facility] Medical Group Family and Sports Medicine - [place] [address] [facility] [place] [address] Albert Ruby MD [address] [facility] [address] [place] [address] documented as of this encounter Visit Diagnoses Not on filedocumented in this encounter Additional Health Concerns Infection Onset Date Last Indicated Resolved Time COVID-19 Rule Out 10/02/2024 10/02/2024 10/02/2024 10:45 AM CAMPGROUND CLEANING ATTENDANT Assessment Noted Time PHQ-9 Depression Total Score: 11 022 11:44 AM CDT documented as of this encounter Care Teams City Jailer Relationship Specialty Start Date End Date Albert Ruby MD [address] [facility] [address] [place] [address] PCP - General FAMILY PRACTICE 05/16/18 Trem[facility]ne Shi MD [facility] [address] [place] [address] EP Bow Maker Machine Tender CARDIOVASCULAR DISEASE 08/15/18 documented as of this encounter
--- OUTSIDE RECORDS SUMMARY | 2025-06-08 20:36 | XMS_ITS | Encounter Summary ---
Author Organization [facility] Address [address] [place] [address] Care Team Providers Care Garment Parts Cutter Hand Name Role Phone Magda Gregorio DO Primary Care Provider [phone] Reason for Visit * Reason Comments Insurance Coverage Encounter Details Date Type Department Care Team (Late st Contact Info) Description 03/18/2024 Chart Note [facility] Bariatrics and General Surgery at the [facility] [address] [place] [address] Sissy Mccord MD [address] [place] [address] Insurance Coverage Social History Tobacco Use Types Packs/Day Years Used Date Smoking Tobacco: Never Smokeless Tobacco: Never Alcohol Use Standard Drinks/Week Comments No 0 (1 standard drink = 0.6 oz pur e alcohol) Comments No Sex and Gender Information Value Date Recorded Sex Assigned at Not on file Legal Sex Female 5:41 AM DATABASE DEVELOPER Gender Identity Not on file Sexual Orientation Not on file documented as of this encounter Plan of Treatment Not on file documented as of this encounter Visit Diagnoses Not on filedocumented in this encounter Care Teams Garment Parts Cutter Hand Relationship Specialty [place] [address] [facility] [place] [address] PCP - General Internal Medicine 10/14/22 documented as of this encounter
--- OUTSIDE RECORDS SUMMARY | 2025-06-08 20:36 | XMS_ITS | Clinical Summary ---
Author Organization [facility] Address [address] [facility] [place] [address] Care Team Providers Care Government Affairs Director Name Role Phone Albert Ruby MD Primary Care Provider [phone] Source Comments [facility],non-owned Affiliates and Associated Physician Practices is amultiple site organization consisting of ambulatory clinics and hospital sitesin [place], [place], [place] and [place]. This disclosure is being madepursuant to the Care Everywhere program and may not contain all information available regarding this patient. Last updated 18.[facility] Allergies Active Allergy Reactions Criticality Noted Date [...] naloxone HCl (Narcan) 4 MG/0.1ML nasal spray [place] 1 (one) spray into the nose as [...] perspiration. 1 Each 1 Active nystatin (Mycostatin) 120281 UNIT/GM powder Apply to affected area 2 [...] Description 05/28/2025 Telephone [facility] - STONECUTTER ASSISTANT [address] [place] [address] Ольга Breen APRN-CNP Appointment 05/26/2025 Telephone [facility] - STONECUTTER ASSISTANT [address], [address] [place] [address] Rufino Platt MD Question 05/22/2025 3:40 PM CDT Office Visit [facility] - STONECUTTER ASSISTANT [address] [place] [address] Ольга Breen APRN-CNP care following delivery ([facility]) (Primary Dx); Chronic hypertension; History of severe pre-eclampsia: G1; History of section, low transverse; wound disruption ([facility]); Superficial hematoma; Anxiety and depression; Obesity, Class III, BMI 40-49.9 (morbid obesity) ([facility]); History of blood transfusion; Acute blood loss anemia: G1; History of hemorrhage; SVT (supraventricular tachycardia) ([facility]) 05/22/2025 Travel 05/16/2025 Telephone [facility] - Centralized Scheduling [address] [place] [phone] Ольга Breen APRN-CNP Care 05/05/2025 10:20 AM CDT Office Visit [facility] - STONECUTTER ASSISTANT [address] [phone] Ольга Breen APRN-CNP care following delivery (HCC) (Primary Dx); Chronic hypertension; History of severe pre-eclampsia: G1; SVT (supraventricular tachycardia) (HCC); History of section, low transverse; History of hemorrhage; Acute blood loss anemia: G1; History of blood transfusion; Obesity, Class III, BMI 40-49.9 (morbid obesity) ([facility]); Pre-diabetes; Anxiety and depression 05/05/2025 Travel 05/01/2025 Telephone [facility] - STONECUTTER ASSISTANT [address] [place] [phone] Ольга Breen APRN-CNP Coordination Of Care 04/26/2025 8:15 PM CDT - 04/26/2025 9:52 PM CDT Surgery [place] [id number] Head, Jailyn Bhatt MD SECTION (EMERGENCY) 04/26/2025 1:00 AM CDT Anesthesia Event [facility] [address] [place] [address] Marciano Dotson MD Gerlach, Bradley T, SECRETARY BOOK KEEPER-PIN STICKER 04/24/2025 7:54 PM CDT - 04/29/2025 6:41 PM CDT Hospital Encounter [facility] 6W MOTHER/BABY [address] [place] [address] Meghann Chamorro MD Obstetrics Discharge Disposition: Home or Self Care 04/23/2025 Telephone [facility] - STONECUTTER ASSISTANT [address] [place] [address] [place] [phone] Rufino Platt MD Concerns; Care 04/21/2025 4:14 PM CDT - 04/22/2025 11:20 AM CDT Hospital Encounter [facility] 5E ANTEPARTUM/MOTHER BABY [address] [place] [address] Jailyn Zuñiga MD Discharge Disposition: Home or Self Care 04/21/2025 4:00 PM CDT visit [facility] - STONECUTTER ASSISTANT [address] [place] [phone] Rufino Platt MD GA: 36w3d 04/21/2025 3:15 PM CDT Procedure visit [facility] - STONECUTTER ASSISTANT [address] [place] [address] Ave [address] [place] [phone] growth restriction antepartum (HCC) ; Obesity affecting in third trimester, unspecified obesity type (HCC); Mental disorder affecting in third trimester (HCC): Depression/Anxiety; Chronic hypertension affecting (HCC) 04/21/2025 2:30 PM CDT Procedure visit [facility] - STONECUTTER ASSISTANT [address] [place] [address] [place], [place] [address]e [address] [place] [phone] Obesity affecting in third trimester, unspecified obesity type (HCC) ; Chronic hypertension affecting (HCC) 04/21/2025 Travel 04/17/2025 Telephone [facility] - STONECUTTER ASSISTANT [address] [place] [address] [place], [place] [address] [address] [place] [phone] Ольга Breen APRN-CNP Follow-up 04/15/2025 4:58 PM CDT - 04/16/2025 12:18 PM CDT Hospital Encounter [facility] 5E ANTEPARTUM/MOTHER BABY [address] [place] [address] Meghann Chamorro MD Discharge Disposition: Home or Self Care 04/15/2025 4:00 PM CDT visit [facility] - STONECUTTER ASSISTANT [address] [place] [address] [place], [place] [address] [address] [place] [phone] Ольга Breen APRN-CNP GA: 35w4d 04/15/2025 3:15 PM CDT Procedure visit [facility] - STONECUTTER ASSISTANT [address] [place] [address] Ave [address] [place] [phone] Obesity affecting in third trimester, unspecified obesity type (HCC) ; SVT (supraventricular tachycardia) (HCC); Pre-diabetes; Mental disorder affecting in third trimester (HCC): Depression/Anxiety; Chronic hypertension affecting (HCC); Poor growth affecting management of mother in third trimester, single or unspecified fetus (HCC) 04/15/2025 2:30 PM CDT Procedure visit [facility] - STONECUTTER ASSISTANT [address] [place] [address] ERRONEOUS ENCOUNTER--DISREGARD 04/15/2025 Travel 04/14/2025 Telephone [facility] - STONECUTTER ASSISTANT [address] [place] [address] Ольга Breen APRN-CNP Appointment; Care 04/08/2025 4:00 PM CDT visit [facility] - STONECUTTER ASSISTANT [address] [place] [address] Ольга Breen APRN-CNP GA: 34w4d 04/08/2025 3:15 PM CDT Procedure visit [facility] - STONECUTTER ASSISTANT [address] [place] [phone] Obesity in (HCC) 04/08/2025 2:30 PM CDT [facility] [address] [place] [address] Supervision of high risk in third trimester (HCC) ; Chronic hypertension affecting (HCC); Pre-diabetes 04/08/2025 Travel 04/07/2025 8:57 AM CDT - 04/07/2025 2:28 PM CDT Hospital Encounter [facility] 5 L[address] [place] [address] Chayito Awad MD Discharge Disposition: Home or Self Care 04/07/2025 Telephone [facility] - STONECUTTER ASSISTANT [address] [place] [address] Ольга Breen APRN-CNP Care 04/07/2025 Travel 04/01/2025 4:00 PM CDT visit [facility] - STONECUTTER ASSISTANT [address] [place] [address] Ольга Breen APRN-CNP GA: 33w4d 04/01/2025 3:15 PM CDT Procedure visit [facility] - STONECUTTER ASSISTANT [address] [place] [address] Obesity in (HCC) ; HTN in , chronic (HCC) 04/01/2025 2:30 PM CDT Procedure visit [facility] - STONECUTTER ASSISTANT [address] [place] [address] Chronic hypertension affecting (HCC) 04/01/2025 Travel 03/31/2025 Telephone [facility] - STONECUTTER ASSISTANT [address] [place] [address] Ольга Breen APRN-CNP Care 03/31/2025 Telephone [facility] - STONECUTTER ASSISTANT [address] [place] [address] Kiah Breen APRN-CNP Opened In Error 03/27/2025 3:20 PM CDT visit [facility] - STONECUTTER ASSISTANT [address] [place] [address] Ольга Breen APRN-CNP GA: 32w6d 03/27/2025 2:30 PM CDT Procedure visit [facility] - STONECUTTER ASSISTANT [address] [place] [address] Obesity affecting in third trimester, unspecified obesity type (HCC) ; Mental disorder affecting in third trimester (HCC): Depression/Anxiety; Chronic hypertension affecting (HCC); Supervision of high risk in third trimester (HCC) 03/27/2025 2:00 PM CDT Procedure visit [facility] - STONECUTTER ASSISTANT [address] [place] [phone] Chronic hypertension affecting (HCC) 03/27/2025 Travel 03/24/2025 4:45 PM CDT - 03/24/2025 10:18 PM CDT Hospital Encounter [facility] 5 L[address] [place] [address] Tremayne Awad MD Discharge Disposition: Home or Self Care 03/12/2025 Telephone [facility] - STONECUTTER ASSISTANT [address] [place] [address] Ольга Breen APRN-FELICITAS Contraceptive management (Nexplanon) from Last 3 Months Immunizations Immunization Administration Dates Next Due IceBreaker primary monoval ent 12+ yr 0.3mL Purple [...] Recorded Patient Health Questionnaire-2 Score 0 04/14/2025 [facility] [place] of Occupat ional Health - Occupational Stress [...] things needed for daily living? No 04/24/2025 [place] Depression Scale Answer Date Recorded [place] Depression Scale Total 0 05/22/2025 The thought [...] any time in the past 12 m [facility], were you homeless or living in a jail (including now)? No 04/24/2025 Education Answer Date Recorded What is the highest level of school you have completed or the highest degree you have received? 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 [...] CDT Clinical Support [facility] - STONECUTTER ASSISTANT [address] [place] [phone] 06/09/2025 9:30 AM CDT [facility]ONECUTTER ASSIST[facility] [address] [place] [phone] Mandy Krishnan, SECRETARY BOOK KEEPER-PRODUCTION TEAM ADVISOR [address] [place] [phone] 06/10/2025 1:40 PM CDT Procedure visit [facility] - STONECUTTER ASSISTANT [address] [place] [phone] Leila Burt SECRETARY BOOK KEEPER-PRODUCTION TEAM ADVISOR [address] [place] [phone] Health Maintenance Due Date Last Done Comments [...] 12/07/19 25 Medical Devices Explanted Type Area Stock Blender Device Identifier Shelf Expiration Date Model / Serial / Lot Wire K Ster .035 - Sn/A Explanted:Qty: 1 by Katty Storey MD at [facility] Right: Ankle [employer] 1600-635 / N/A / N/A Scrw [place] Sh Thrd 4.0mm X 42mm Explanted:Qty: 1 on 07/08/2013 at [facility] [employer] 2 / / Scrw [place] Sh Thrd 4.0mm X 40mm Explanted:Qty: 1 on 07/08/2013 at [facility] / / Gwire .078 X 9 - Sn/A Implanted:Qty: 1 on 07/08/2013 by Katty Storey MD at [facility] Explanted:Qty: 1 on 11/04/2013 at [facility] Right: Ankle WS-[id number] / N/A / N/A Gwire Acutrak Plus Thrd .063 X 9 - Sn/A Implanted:Qty: 1 on 07/08/2013 by Katty Storey MD at [facility] Explanted:Qty: 1 on 11/04/2013 at [facility] Right: Ankle [id number] / N/A / [...] - 10.7 x10E9/L 04/29/2025 5:15 PM CDT [facility] RBC Count 3.58(L) 3.90 - 5.20 x10E12/L 04/29/2025 5:15 PM CDT [facility] Hemoglobin 8.9(L) 11.9 - 15.8 g/dL 04/29/2025 5:15 PM CDT [facility] Hematocrit 28.5(L) 34.8 - 46.1 % 04/29/2025 5:15 PM CDT [facility] MCV 79.6(L) 80.0 - 98.0 fL 04/29/2025 5:15 PM CDT [facility] MCH 24.9(L) 26.7 - 33.6 pg 04/29/2025 5:15 PM CDT [facility] MCHC 31.2(L) 31.7 - 36.3 g/dL 04/29/2025 5:15 PM CDT [facility] RDW-CV 17.4(H) 11.3 - 14.8 % 04/29/2025 5:15 PM CDT [facility] Platelet Count 281 150 - 420 x10E9/L 04/29/2025 5:15 PM CDT [facility] MPV 13.2(H) 7.8 - 11.4 fL 04/29/2025 5:15 PM CDT [facility] Neutrophil % 71.1 41.0 - 74.0 % 04/29/2025 5:15 PM CDT [facility] Lymphocyte % 19.8 17.0 - 47.0 % 04/29/2025 5:15 PM CDT [facility] Monocyte % 6.1 3.0 - 11.0 % 04/29/2025 5:15 PM CDT [facility] Eosinophil % 2.2 0.0 - 7.0 % 04/29/2025 5:15 PM CDT [facility] Basophil % 0.1 0.0 - 1.6 % 04/29/2025 5:15 PM CDT [facility] Immature Granulocytes % 0.7 0.0 - 1.0 % 04/29/2025 5:15 PM CDT [facility] Neutrophil Absolute 9.27(H) 1.60 - 7.50 x10E9/L 04/29/2025 5:15 PM CDT [facility] Lymphocyte Absolute 2.58 1.00 - 4.40 x10E9/L 04/29/2025 5:15 PM CDT [facility] Monocyte Absolute 0.79 0.15 - 1.00 x10E9/L 04/29/2025 5:15 PM CDT [facility] Eosinophil Absolute 0.29 0.00 - 0.60 x10E9/L 04/29/2025 5:15 PM CDT [facility] Basophil Absolute 0.01 0.00 - 0.13 x10E9/L 04/29/2025 5:15 PM CDT [facility] Blood BLOOD SPECIMEN / Unknown Lab Venipuncture / Unknown 04/29/2025 4:20 PM CDT 04/29/2025 5:03 PM CDT us Meghann Chamorro MD LAB - HEMATOLOGY ORDERABLES Fin al Result [facility] [address] [place] [address] * TRANSFUSE RED BLOOD CELL LEUKOREDUCED UNIT(S) (04/29/2025 1:49 PM CDT) us Meghann Chamorro MD NURSING - BLOOD PROD TRANSFUSIO N Edited Result - Final * (ABNORMAL) CBC W/O DIFFERENTIAL (04/29/2025 4:00 AM CDT) Only the most recent of5 resultswithin the time period is included. WBC 10.8(H) 4.0 - 10.7 x10E9/L 04/29/2025 4:46 AM CDT [facility] RBC Count 2.97(L) 3.90 - 5.20 x10E12/L 04/29/2025 4:46 AM CDT [facility] Hemoglobin 7.2(L) 11.9 - 15.8 g/dL 04/29/2025 4:46 AM CDT [facility] Hematocrit 23.6(L) 34.8 - 46.1 % 04/29/2025 4:46 AM CDT [facility] MCV 79.5(L) 80.0 - 98.0 fL 04/29/2025 4:46 AM CDT [facility] MCH 24.2(L) 26.7 - 33.6 pg 04/29/2025 4:46 AM CDT [facility] MCHC 30.5(L) 31.7 - 36.3 g/dL 04/29/2025 4:46 AM CDT [facility] RDW-CV 17.1(H) 11.3 - 14.8 % 04/29/2025 4:46 AM CDT [facility] Platelet Count 245 150 - 420 x10E9/L 04/29/2025 4:46 AM CDT [facility] MPV 13.0(H) 7.8 - 11.4 fL 04/29/2025 4:46 AM CDT [facility] Blood BLOOD SPECIMEN / Unknown Lab Venipuncture / Unknown 04/29/2025 4:00 AM CDT 04/29/2025 4:20 AM CDT Meghann Chamorro MD LAB - HEMATOLOGY ORDERABLES Fin al Result [facility] [address] [place] [address] * TRANSFUSE RED BLOOD CELL LEUKOREDUCED UNIT(S) (04/28/2025 1:54 PM CDT) us Meghann Chamorro MD NURSING - BLOOD PROD TRANSFUSIO N Final Result * PREPARE (CROSSMATCH) RBC UNIT(S), 1 Units (04/28/2025 7:04 AM CDT) Only the most recent of3 resultswithin the time period is included. Unit Description AS1 LR PRBC [facility] Unit ABO A [facility] Unit Rh NEG [facility] Product Number R02 [facility] Unit Donor # [id number] [facility] B[facility] Unit Status released [facility] Product [facility] [id number] [facility] Blood Type Barcode 599 [facility] Expiration Date [id number] S [facility] Blood Bank BLOOD SPECIMEN / Unknown 04/28/2025 7:04 AM CDT 04/28/2025 7:06 AM CDT us Meghann Chamorro MD LAB - BLOOD BANK ORDERABLES Fin al Result Performing Organization Address City/[facility]/ZIP Co de Phone Number [facility] [address] [place] [address] * TYPE + SCREEN PANEL (04/28/2025 7:04 AM CDT) Only the most recent of4 resultswithin the time period is included. ABO Rh A POS 04/28/2025 7:39 AM CDT [facility] Comment:History checked. Antibody Screen NEG 7:39 AM CDT [facility] Blood Bank BLOOD SPECIMEN / Unknown Lab Venipuncture / Unknown 04/28/2025 7:04 AM CDT 04/28/2025 7:06 AM CDT us Meghann Chamorro MD LAB - BLOOD BANK ORDERABLES Fin al Result [facility] [address] [place] [address] * (ABNORMAL) BLOOD GASES CORD NATASHA (ISTAT) (04/26/2025 9:26 PM CDT) pH Cord Venous POCT 7.17(L) 7.28 - 7.40 pH 04/26/2025 9:35 PM CDT [facility] pCO2 Cord Venous POCT 53.2(H) 35 - 45 mm hg 04/26/2025 9:35 PM CDT [facility] pO2 Cord Venous POCT 18(L) 22 - 33 mm hg 04/26/2025 9:35 PM CDT [facility] HCO3 Cord Arterial POCT 19.5(L) 22 - 24 mmol/L 04/26/2025 9:35 PM CDT [facility] BE Cord Venous POCT Calc -10(L) -6.4 - 1.6 mmol/L 04/26/2025 9:35 PM CDT [facility] TCO2 Cord Venous POCT 21(L) 22 - 30 mmol/L 04/26/2025 9:35 PM CDT [facility] O2 Saturation % Cord Venous Calc POCT 18 % 04/26/2025 9:35 PM CDT [facility] Site CORD NATASHA 04/26/2025 9:35 PM CDT [facility] Sample iSTAT CORD NATASHA 04/26/2025 9:35 PM CDT [facility] Blood CORD BLOOD SPECIMEN / Unknown 04/26/2025 9:26 PM CDT 04/26/2025 9:35 PM CDT Meghann Chamorro MD LAB - POINT OF CARE ORDERABLES Final Result [facility] [address] [place] [address] * (ABNORMAL) BLOOD GASES CORD ART (ISTAT) (04/26/2025 9:22 PM CDT) pH Cord Arterial POCT 7.08(L) 7.20 - 7.34 pH 04/26/2025 9:35 PM CDT [facility] pCO2 Cord Arterial POCT 70.1(HH) 45 - 55 mm hg 04/26/2025 9:35 PM CDT [facility] pO2 Cord Arterial POCT <15 12 - 25 mm hg 04/26/2025 9:35 PM CDT [facility] HCO3 Cord Arterial POCT 20.9(L) 22 - 24 mmol/L 04/26/2025 9:35 PM CDT [facility] BE Cord Arterial POCT -11(L) -2.9 - 8.3 mmol/L 04/26/2025 9:35 PM CDT [facility] TCO2 Cord Arterial POCT 23 mmol/L 04/26/2025 9:35 PM CDT [facility] O2 Saturation Cord Art % Calc POCT 9 % 04/26/2025 9:35 PM CDT [facility] Site CORD ART 04/26/2025 9:35 PM CDT [facility] Sample iSTAT CORD ART 04/26/2025 9:35 PM CDT [facility] Blood CORD BLOOD SPECIMEN / Unknown 04/26/2025 9:22 PM CDT 04/26/2025 9:35 PM CDT Meghann Chamorro MD LAB - POINT OF CARE ORDERABLES Final Result [facility] [address] [place], [place] [id number] * PATHOLOGY TISSUE EXAM (STL) (04/26/2025 9:18 PM CDT) Case Report Surgical Pathology Report Case: [id number] Authorizing Provider: Yogesh, Jailyn Bhatt MD Collected: 04/26/2025 09:18 PM Ordering Location: [facility] 5 LDR Received: 04/28/2025 08:06 AM Pathologist: Collin Espana MD Specimen: Placenta 04/29/2025 1:42 PM CDT [facility] Final Diagnosis Placenta, section: - Small [...] Pathol Lab Med 1996:16:903. 04/29/2025 1:42 PM [facility] at 1342 CDT Clinical History 24-year-old G1 at 37w1d. 04/29/2025 1:42 PM T [facility] Gross Description The specimen is identified [...] surface. Sectioning shows red-brown, spongy cut surfaces. Store Team Leader sections submitted as follows: A1 - umbilical cord and membrane roll, A2-A3 - placenta, A4 - maternal surface yellow-white thickening. /LJ 04/29/2025 1:42 PM T [facility] Microscopic Description Microscopic examination substantiates the diagnosis above. 04/29/2025 1:42 PM [facility] Pathologist Location at [facility] 04/29/2025 1:42 PM [facility] Disclaimer All histochemical and/or immunohistochemical results [...] interpreted with caution. 04/29/2025 1:42 PM CDT [facility] Embedded Images 04/29/2025 1:42 PM CDT [facility] Pathology/Cytolo gy ENTIRE PLACENTA / Unknown 04/26/2025 9:18 PM CDT 04/28/2025 8:06 AM CDT Jailyn Zuñiga MD LAB - PATHOLOGY/CYTOLOGY ORDER ANIVAL Final Result Performing Organization Address City/State/[facility] Co de Phone Number [facility] [address] [place] [address] * EPIDURAL BLOCK PERF (04/26/2025 6:13 AM [...] - 145 mmol/L 04/26/2025 3:43 AM CDT [facility] Potassium 4.0 3.5 - 5.1 mmol/L 04/26/2025 3:43 AM CDT [facility] Chloride 111(H) 98 - 107 mmol/L 04/26/2025 3:43 AM CDT [facility] CO2 18(L) 22 - 29 mmol/L 04/26/2025 3:43 AM CDT [facility] Calcium 8.8 8.4 - 10.4 mg/dL 04/26/2025 3:43 AM CDT [facility] Anion Gap 9 6 - 16 mmol/L 04/26/2025 3:43 AM CDT [facility] BUN 8 5.3 - 18.7 mg/dL 04/26/2025 3:43 AM CDT [facility] Creatinine 0.72 0.57 - 1.11 mg/dL 04/26/2025 3:43 AM CDT [facility] Alkaline Phosphatase 174(H) 40 - 150 U/L 04/26/2025 3:43 AM CDT [facility] ALT 7 6 - 57 U/L 04/26/2025 3:43 AM CDT [facility] AST 19 10 - 48 U/L 04/26/2025 3:43 AM CDT [facility] Protein Total 6.5 6.4 - 8.3 gm/dL 04/26/2025 3:43 AM CDT [facility] Albumin 2.6(L) 3.1 - 4.5 gm/dL 04/26/2025 3:43 AM CDT [facility] Bilirubin Total 0.2 0.2 - 1.2 mg/dL 04/26/2025 3:43 AM CDT [facility] eGFR by CKD-EPI >90 >=90 mL/min/1.7 3 m2 04/26/2025 3:43 AM CDT [facility] Comment:Estimated Glomerular Filtration Rate (eGFR) calculated using the CKD-EPI Creatinine Equation (2020), per the [employer] and [place] [employer] recommendations. Blood BLOOD SPECIMEN / Unknown Venipuncture / Unknown 04/26/2025 3:15 AM CDT 04/26/2025 3:21 AM CDT us Meghann Chamorro MD LAB - CHEMISTRY ORDERABLES Frances l Result Performing Organization Address [facility] de Phone Number [facility] [address] [place] [phone] * PROTEIN CREATININE RATIO URINE RANDOM PNL (04/26/2025 3:15 AM CDT) Only the most recent of5 resultswithin the time period is included. Pathologist [facility] Protein Urine 7.0 <11.9 mg/dL 04/26/2025 3:43 AM CDT [facility] Creatinine Urine 69.63 mg/dL 04/26/2025 3:43 AM CDT [facility] Protein/Creatin ine Ratio Urine 0.10 04/26/2025 3:43 AM CDT [facility] Urine URINE SPECIMEN OBTAINED BY CLEAN CATCH PROCEDURE / Unknown Collection / Unknown 04/26/2025 3:15 AM CDT 04/26/2025 3:21 AM CDT us Meghann Chamorro MD LAB - URINE CHEMISTRY ORDERABLE S Final Result Performing Organization Address [facility] [facility] de Phone Number [facility] [address] [place] [address] * EPIDURAL BLOCK PERF (04/26/2025 1:22 AM CDT) Narrative German Cortez APRN-PIN STICKER - 04/26/2025 1:22 AM CDT German Cortez [...] for details. Staff: Anesthesia Provider: German Cortez APRN-PIN STICKER - performed the procedure Thaddeus Finley MD GENERAL ANESTHESIA ORDERABLE S Edited Result - Final * SYPHILIS ANTIBODY CASCADING REFLEX (04/24/2025 8:31 PM CDT) Only the most recent of2 resultswithin the time period is included. Treponema pallidum Antibody Non Reactive Non Reactive 04/24/2025 9:19 PM CDT [facility] Comment: No Laboratory evidence of syphilis infection. Note: Circulating antibodies may be low or undetectable in early infection. If recent exposure is suspected, re-draw sample in 2-4 weeks and repeat testing. Blood BLOOD SPECIMEN / Unknown Venipuncture / Unknown 04/24/2025 8:31 PM CDT 04/24/2025 8:39 PM CDT Meghann Chamorro MD LAB - SEROLOGY ORDERABLES Final Result [facility] [address] [place] [address] * NONSTRESS TEST (04/21/2025 11:43 [...] this NST which is reactive with moderate [id number] variability & normal FHR baseline & no clinically significant heart rate decelerations. I have reviewed this heart rate tracing and agree with the documented interpretation. Jailyn Zuñiga MD Maternal- Medicine [facility] us Tremayne Awad MD OB GYNE ORDERABLES Edited Resu lt - Final * (ABNORMAL) URINALYSIS REFLEX MICROSCOPIC REFLEX CULTURE (04/21/2025 6:26 PM CDT) Only the most recent of4 resultswithin the time period is included. Color UA Yellow Yellow, Straw 04/21/2025 6:58 PM CDT [facility] Clarity UA Turbid(A) Clear 04/21/2025 6:58 PM CDT [facility] Glucose UA Normal Normal 04/21/2025 6:58 PM CDT [facility] Bilirubin UA Negative Negative 04/21/2025 6:58 PM CDT [facility] Ketone UA Negative Negative 04/21/2025 6:58 PM CDT [facility] Specific [place] UA 1.019 1.005 - 1.030 04/21/2025 6:58 PM CDT [facility] Blood UA Negative Negative 04/21/2025 6:58 PM CDT [facility] pH UA 5.5 5.0 - 8.0 04/21/2025 6:58 PM CDT [facility] Protein UA Negative Negative 04/21/2025 6:58 PM CDT [facility] Urobilinogen UA Normal Normal mg/dL 04/21/2025 6:58 PM CDT [facility] Nitrite UA Negative Negative 04/21/2025 6:58 PM CDT [facility] Leukocyte Esterase UA Negative Negative 04/21/2025 6:58 PM CDT [facility] RBC UA 6-10(A) 0 - 5 # /hpf 04/21/2025 6:58 PM CDT [facility] WBC UA 6-10(A) 0 - 5 # /hpf 04/21/2025 6:58 PM CDT [facility] Bacteria UA 1+(A) None Seen 04/21/2025 6:58 PM CDT [facility] Squamous Epithelial Cells 11-20(A) 0 - 5 /hpf 04/21/2025 6:58 PM CDT [facility] Mucus UA 4+ /LPF 04/21/2025 6:58 PM CDT [facility] Reflex Status Culture not indicated 04/21/2025 6:58 PM CDT [facility] Urine Microscopy Urine microscopy not indicated 04/21/2025 6:58 PM CDT [facility] Urine URINE SPECIMEN OBTAINED BY CLEAN CATCH PROCEDURE / Unknown Collection / Unknown 04/21/2025 6:26 PM CDT 04/21/2025 6:32 PM CDT Narrative [facility] - 04/21/2025 6:58 PM CDT Jailyn Zuñiga MD LAB - URINALYSIS ORDERABLES Fi nal Result [facility] [address] [place] [address] * URINALYSIS - POINT OF CARE (AMB) [facility] (04/21/2025 3:28 PM CDT) Only the most recent of5 resultswithin the time period is included. Specific [place] UA 1.[address] [facility] [address] pH [...] ORDERABLES Final Result [address] [place] [address], [facility] [phone] * BIOPHYSICAL PROFILE W NST (04/21/2025 3:00 [...] for known or suspected placental insufficiency Procedures 43248: [place] Uterus Limited 00411: Biophysical Profile W NST 59454: Umbilical Doppler 87974: MCA Doppler [facility] PACS Anatomical Region Laterality Modality Other 04/21/2025 3:00 PM CDT Rufino Platt MD [facility] ORDERABLES Edited Result - Final * NONSTRESS [...] - 6.2 mg/dL 04/15/2025 6:29 PM CDT [facility] Blood BLOOD SPECIMEN / Unknown Venipuncture / Unknown 04/15/2025 5:34 PM CDT 04/15/2025 6:10 PM CDT Meghann Chamorro MD LAB - CHEMISTRY ORDERABLES Frances l Result [facility] [address] [place] [address] * FERRITIN (04/15/2025 5:34 PM CDT) Ferritin 12 5 - 204 ng/mL 04/15/2025 6:55 PM CDT [facility] Blood BLOOD SPECIMEN / Unknown Venipuncture / Unknown 04/15/2025 5:34 PM CDT 04/15/2025 6:10 PM CDT Meghann Chamorro MD LAB - CHEMISTRY ORDERABLES Frances l Result Performing Organization Address [facility] Co de Phone Number [facility] [address] [place] [address] * CULTURE STREP B (04/15/2025 4:20 PM CDT) Culture [facility] Comment: STREPTOCOCCUS, GROUP B CULTURE Micro Number: [id number] Test Status: Final Specimen Source: Anorectum/vagina Specimen Quality: Adequate Result: No group B Streptococcus isolated Note per CDC guidelines optimal recovery is achieved by swabbing both the lower vagina and rectum (through the anal sphincter). Test Performed at: [email or web address] [address] KENJI ZURITA MD Microbiology MISCELLANEOUS SAMPLES / Unknown 04/15/2025 4:20 PM CDT 04/16/2025 1:07 AM CDT Ольга Jamshid HUTCHINSON-PRODUCTION TEAM ADVISOR LAB - MICROBIOLOGY ORD ERABLES Final Result Performing Organization Address [facility] Co de Phone Number [facility] [phone] [place] [id number] * SONOGRAM - COMPLETE (04/15/2025 3:24 PM [...] 5 lb 0 oz EFW by Hadlock ([id number]) Growth Overview Exam date [place] BPD (mm) [...] for known or suspected placental insufficiency Procedures 95704: [place] [address]: Biophysical Profile W NST 88254: Umbilical Doppler 75652: MCA Doppler [facility] Anatomical Region Laterality Modality Other 04/15/2025 3:24 PM CDT Chayito Awad MD [facility] ORDERABLES Edited Result - Final * TRICHOMONAS VAGINALIS BORIS (04/07/2025 11:21 AM CDT) Trichomonas by BORIS NEGATIVE NEGATIVE 04/08/2025 6:00 AM CDT [facility] Microbiology ENTIRE VAGINA / Unknown Collection / Unknown 04/07/2025 11:21 AM CDT 04/07/2025 11:39 AM CDT Narrative [facility] - 04/08/2025 6:00 AM CDT This test performed by Qualitative real-time Polymerase Chain Reaction (PCR). Chayito Awad MD LAB - MICROBIOL OGY ORDERABLES Final Result [facility] [address] [place] [address], [facility] [phone] * CHLAMYDIA AND N. GONORRHOEAE BORIS (04/07/2025 11:21 AM CDT) Chlamydia by BORIS NEGATIVE NEGATIVE 04/08/2025 6:00 AM CDT [facility] Neisseria gonorrhoeae BORIS NEGATIVE NEGATIVE 04/08/2025 6:00 AM CDT [facility] Microbiology ENTIRE VAGINA / Unknown Collection / Unknown 04/07/2025 11:21 AM CDT 04/07/2025 11:39 AM CDT Narrative [facility] - 04/08/2025 6:00 AM CDT This test performed by Qualitative real-time Polymerase Chain Reaction (PCR). Chayito Awad MD LAB - MICROBIOL OGY ORDERABLES Final Result [facility] [address] [place] [address], [facility] [phone] * US Abdomen Limited (03/24/2025 8:18 PM [...] LIMITED Exam Date: 03/24/2025 8:19 PM Location: [facility] Indication: R03.0: Elevated blood pressure reading [...] LIMITED Exam Date: 03/24/2025 8:19 PM Location: [facility] Indication: R03.0: Elevated blood pressure reading [...] P24 AG PANEL (02/19/2025 1:03 PM CDT) [facility] HIV Screen 4th Generation w Reflex NON-REACT [...] purpose. For additional information please refer to http://education.Exaptive.Tindie/faq/FZS180 (This link is being provided for informational/ educational purposes only.) The performance of this assay has not been clinically validated in patients less than 2 years old. Test Performed at: [facility] [address] [place] [address] KENJI ZURITA MD Blood BLOOD SPECIMEN / Unknown 02/19/2025 1:03 PM CDT 02/19/2025 1:03 PM CDT us Jay Dykes MD LAB - CHEMISTRY ORDERA BLES Final Result [facility] [address] [place] [address] * PAP 2 OR MORE SLIDES (12/03/2023 12:00 AM CDT) us Historical Provider LAB - PATHOLOGY/CYTOLOGY ORDERABLES Final Result [facility] [address] [place] [address], [facility] [phone] from Last 3 Months or Most Recently Relevant to Health Maintenance Insurance [facility] Address: [address] [place] [address] MEDICAID [employer] [place] Advance Directives [...] 5:15 PM 04/16/2025 1:31 PM Care Teams Government Affairs Director Relationship Specialty Start Date End Date Albert Ruby MD [address] [address] PCP - General Family Medicine 11/08/24
== END 2025-06-08 20:30 | disposition home or self-care (01) ==
LOC: CHSED 20:34
PROVIDERS: Emergency Provider Emergency Medicine; Referring Provider Family Medicine
DX: T21.22XD Burn of second degree of abdominal wall, subsequent encounter (principal); T31.0 Burns involving less than 10% of body surface; X19.XXXD Contact with other heat and hot substances, subsequent encounter
CPT/HCPCS: 99283; A9270